=== PATIENT | male | born 1945 | race Caucasian/White ===

== ENCOUNTER 2017-07-29 12:47 | Inpatient (IN) | payer OTHER, MEDICARE ==
[2017-07-29] MEDS: NS 1,000 ML IV ×3 (13:45→19:14)
[2017-07-29 14:37] LABS: BASO % 0.3 % (0.0-1.0); EOS # 0.5 10^3/uL (0.0-0.50); EOS % 6.3 % (0.0-3.0); HEMATOCRIT 32.1 % (42.0-52.0); HEMOGLOBIN 10.5 g/dl (14.0-18.0); IMMATURE GRANULOCYTE % 0.4 % (0-0); LYMPH # 1.4 10^3/uL (1.5-4.5); LYMPH % 20.2 % (24.0-44.0); MEAN CORPUSCULAR HEMOGLOBIN 32.1 pg (27.0-33.0); MEAN CORPUSCULAR HGB CONC 32.7 g/dl (32.0-36.5); MEAN CORPUSCULAR VOLUME 98.2 fl (80.0-96.0); MONO # 0.7 10^3/uL (0.0-0.8); MONO % 9.8 % (0.0-5.0); NEUTROPHILS # 4.5 10^3/uL (1.8-7.7); PLATELET COUNT, AUTOMATED 201 10^3/uL (150-450); RED BLOOD COUNT 3.27 10^6/uL (4.30-6.10); RED CELL DISTRIBUTION WIDTH 11.9 % (11.5-14.5); WHITE BLOOD COUNT 7.1 10^3/uL (4.0-10.0)
[2017-07-29 14:53] LABS: ALBUMIN 3.6 GM/DL (3.2-5.2); ALBUMIN/GLOBULIN RATIO 0.88 (1.00-1.93); ALKALINE PHOSPHATASE 108 U/L (45-117); ALT/SGPT 27 U/L (12-78); ANION GAP 5 MEQ/L (8-16); AST/SGOT 30 U/L (7-37); BILIRUBIN,DIRECT 0.1 MG/DL (0.0-0.2); BILIRUBIN,TOTAL 0.9 MG/DL (0.2-1.0); BLOOD UREA NITROGEN 45 MG/DL (7-18); CARBON DIOXIDE LEVEL 27 MEQ/L (21-32); CHLORIDE LEVEL 107 MEQ/L (98-107); CREATININE FOR GFR 3.14 MG/DL (0.70-1.30); GLUCOSE, FASTING 95 MG/DL (83-110); SODIUM LEVEL 139 MEQ/L (136-145); TOTAL PROTEIN 7.7 GM/DL (6.4-8.2)
[2017-07-29] MEDS ORDERED: SOD POLYSTYRENE SULFONATE SUSP 15 GM/60 ML UD PO (15:45)
[2017-07-29 17:43] LABS: FERRITIN 102 NG/ML (26-388); IRON (FE) 71 UG/DL (65-175); PERCENT SATURATION 27.6 % (19.7-50.0); TOTAL IRON BINDING CAPACITY 257 UG/DL (250-450)
[2017-07-29 18:11] LABS: APPEARANCE, URINE CLEAR (CLEAR); BACTERIA, URINE AUTO 1+ (NEGATIVE); BILIRUBIN, URINE AUTO NEGATIVE (NEGATIVE); BLOOD, URINE BLOOD 1+ (NEGATIVE); COLOR, URINE STRAW (YELLOW); GLUCOSE, URINE (UA) AUTO NEGATIVE (NEGATIVE); KETONE, URINE AUTO NEGATIVE (NEGATIVE); LEUKOCYTE ESTERASE, URINE AUTO NEGATIVE (NEGATIVE); NITRITE, URINE AUTO NEGATIVE (NEGATIVE); PROTEIN, URINE AUTO NEGATIVE (NEGATIVE); RBC, URINE AUTO 3 /HPF (0-3); SPECIFIC GRAVITY URINE AUTO 1.008 (1.002-1.035); SQUAMOUS EPITHELIAL CELL UR AU 0 /HPF (0-6); UROBILINOGEN, URINE AUTO 0.2 mg/dL (0.0-2.0); WBC, URINE AUTO 1 /HPF (0-3)
[2017-07-29 18:15] LABS: CHLORIDE,RANDOM URINE 48 MEQ/L; POTASSIUM RANDOM URINE 32.8 MEQ/L; SODIUM,RANDOM URINE 43 MEQ/L
[2017-07-29 18:24] LABS: CREATININE,RANDOM URINE 47.3 MG/DL
[2017-07-29 18:46] LABS: RETIC HEMOGLOBIN EQUIVALENT 36.8 pg (24-36); RETICULOCYTE # 42.8 10^9/L (17-77); RETICULOCYTE % 1.3 % (0.5-1.5)
[2017-07-29 18:47] LABS: TOTAL PROTEIN,RANDOM URINE 11.4 MG/DL (0.0-12.0)
[2017-07-29 19:14] LABS: HEMATOCRIT 29.5 % (42.0-52.0); HEMOGLOBIN 9.7 g/dl (14.0-18.0); MEAN CORPUSCULAR HEMOGLOBIN 31.7 pg (27.0-33.0); MEAN CORPUSCULAR HGB CONC 32.9 g/dl (32.0-36.5); MEAN CORPUSCULAR VOLUME 96.4 fl (80.0-96.0); PLATELET COUNT, AUTOMATED 155 10^3/uL (150-450); RED BLOOD COUNT 3.06 10^6/uL (4.30-6.10); WHITE BLOOD COUNT 4.7 10^3/uL (4.0-10.0)
[2017-07-29 19:36] LABS: ANION GAP 5 MEQ/L (8-16); BLOOD UREA NITROGEN 41 MG/DL (7-18); CALCIUM LEVEL 8.2 MG/DL (8.8-10.2); CARBON DIOXIDE LEVEL 24 MEQ/L (21-32); CHLORIDE LEVEL 115 MEQ/L (98-107); CREATININE FOR GFR 2.51 MG/DL (0.70-1.30); GLOMERULAR FILTRATION RATE 27.2 (>42); GLUCOSE, FASTING 87 MG/DL (83-110); SODIUM LEVEL 144 MEQ/L (136-145)
[2017-07-29 20:45] LABS: VITAMIN B12 LEVEL 267 PG/ML (247-911)
[2017-07-29 20:46] LABS: FOLATE 10.6 NG/ML (>5.4)
[2017-07-29 21:13] LABS: OSMOLALITY URINE 273 MOSM/KG (500-800)
[2017-07-29] MEDS: SIMVASTATIN 40 MG TAB PO (21:36)
[2017-07-29] MEDS: GABAPENTIN 400 MG CAP PO (21:36)
[2017-07-29] MEDS: traMADol 50 MG TAB PO (21:36)
[2017-07-30] MEDS: NS 1,000 ML IV (03:27)
[2017-07-30 07:12] LABS: HEMATOCRIT 29.8 % (42.0-52.0); HEMOGLOBIN 9.7 g/dl (14.0-18.0); MEAN CORPUSCULAR HEMOGLOBIN 31.6 pg (27.0-33.0); MEAN CORPUSCULAR HGB CONC 32.6 g/dl (32.0-36.5); MEAN CORPUSCULAR VOLUME 97.1 fl (80.0-96.0); PLATELET COUNT, AUTOMATED 161 10^3/uL (150-450); RED BLOOD COUNT 3.07 10^6/uL (4.30-6.10); RED CELL DISTRIBUTION WIDTH 12.1 % (11.5-14.5); WHITE BLOOD COUNT 4.5 10^3/uL (4.0-10.0)
[2017-07-30 07:41] LABS: ANION GAP 5 MEQ/L (8-16); BLOOD UREA NITROGEN 34 MG/DL (7-18); CALCIUM LEVEL 8.2 MG/DL (8.8-10.2); CARBON DIOXIDE LEVEL 24 MEQ/L (21-32); CHLORIDE LEVEL 118 MEQ/L (98-107); CREATININE FOR GFR 2.11 MG/DL (0.70-1.30); GLOMERULAR FILTRATION RATE 33.2 (>42); GLUCOSE, FASTING 95 MG/DL (83-110); SODIUM LEVEL 147 MEQ/L (136-145)
[2017-07-30 07:49] LABS: POTASSIUM SERUM 5.7 MEQ/L (3.5-5.1)
[2017-07-30] MEDS: traMADol 50 MG TAB PO ×2 (08:53→20:10)
[2017-07-30] MEDS: GABAPENTIN 400 MG CAP PO ×2 (08:54→20:10)
[2017-07-30] MEDS: OMEPRAZOLE 20 MG CAP PO (08:54)
[2017-07-30] MEDS: ATENOLOL 25 MG TAB PO (08:54)
[2017-07-30] MEDS ORDERED: ENOXAPARIN 40 MG/0.4 ML SYRINGE (J1650) SC (09:00)
[2017-07-30] MEDS: D5W 1,000 ML IV ×2 (10:48→20:11)
[2017-07-30 13:03] LABS: ANION GAP 4 MEQ/L (8-16); BLOOD UREA NITROGEN 33 MG/DL (7-18); CALCIUM LEVEL 8.1 MG/DL (8.8-10.2); CARBON DIOXIDE LEVEL 25 MEQ/L (21-32); CHLORIDE LEVEL 117 MEQ/L (98-107); CREATININE FOR GFR 1.93 MG/DL (0.70-1.30); GLOMERULAR FILTRATION RATE 36.8 (>42); GLUCOSE, FASTING 117 MG/DL (83-110); PHOSPHORUS LEVEL 2.7 MG/DL (2.5-4.9); SODIUM LEVEL 146 MEQ/L (136-145)
[2017-07-30 13:05] LABS: POTASSIUM SERUM 5.6 MEQ/L (3.5-5.1)
[2017-07-30] MEDS: amLODIPine 5 MG TAB PO ×2 (13:27→20:10)
[2017-07-30] MEDS: SIMVASTATIN 40 MG TAB PO (20:10)
[2017-07-31 05:36] LABS: HEMATOCRIT 27.9 % (42.0-52.0); HEMOGLOBIN 9.1 g/dl (14.0-18.0); MEAN CORPUSCULAR HEMOGLOBIN 31.5 pg (27.0-33.0); MEAN CORPUSCULAR HGB CONC 32.6 g/dl (32.0-36.5); MEAN CORPUSCULAR VOLUME 96.5 fl (80.0-96.0); PLATELET COUNT, AUTOMATED 157 10^3/uL (150-450); RED BLOOD COUNT 2.89 10^6/uL (4.30-6.10); WHITE BLOOD COUNT 5.5 10^3/uL (4.0-10.0)
[2017-07-31 05:55] LABS: ANION GAP 6 MEQ/L (8-16); BLOOD UREA NITROGEN 25 MG/DL (7-18); CALCIUM LEVEL 8.6 MG/DL (8.8-10.2); CARBON DIOXIDE LEVEL 24 MEQ/L (21-32); CHLORIDE LEVEL 116 MEQ/L (98-107); CREATININE FOR GFR 1.84 MG/DL (0.70-1.30); GLOMERULAR FILTRATION RATE 38.9 (>42); GLUCOSE, FASTING 134 MG/DL (83-110); POTASSIUM SERUM 4.8 MEQ/L (3.5-5.1); SODIUM LEVEL 146 MEQ/L (136-145)
[2017-07-31] MEDS ORDERED: **hydrALAZINE** 10 MG TAB PO (09:00)
[2017-07-31] MEDS: OMEPRAZOLE 20 MG CAP PO (09:17)
[2017-07-31] MEDS: D5W 1,000 ML IV (09:17)
[2017-07-31] MEDS: traMADol 50 MG TAB PO (09:18)
[2017-07-31] MEDS: ATENOLOL 25 MG TAB PO (09:18)
[2017-07-31] MEDS: amLODIPine 5 MG TAB PO (09:18)
[2017-07-31] MEDS: GABAPENTIN 400 MG CAP PO (09:19)
[2017-07-31] MEDS: LISINOPRIL 40 MG TAB PO (16:12)
== END 2017-07-31 16:50 | disposition home or self-care (01) | DRG 683 ==
LOC: M ED 12:47 → M PCU 07-30 15:20 → M ED INP 19:42
DX: N17.9 Acute kidney failure, unspecified (principal); E87.0 Hyperosmolality and hypernatremia; E87.5 Hyperkalemia; R19.7 Diarrhea, unspecified; I12.9 Hypertensive chronic kidney disease with stage 1 through stage 4 chronic kidney disease, or unspecified chronic kidney disease; E86.0 Dehydration; E86.1 Hypovolemia; Z79.899 Other long term (current) drug therapy; D64.9 Anemia, unspecified; N18.3 Chronic kidney disease, stage 3 (moderate); E78.5 Hyperlipidemia, unspecified; M19.90 Unspecified osteoarthritis, unspecified site

== ENCOUNTER → 2018-01-03 | Outpatient (REF) | payer OTHER ==
[2018-01-03 14:17] LABS: VITAMIN B12 LEVEL 195 PG/ML
[2018-01-03 14:22] LABS: FERRITIN 70 NG/ML (26-388); IRON (FE) 56 UG/DL (65-175); TOTAL IRON BINDING CAPACITY 294 UG/DL (250-450)
== END ==
LOC: M LAB REF 13:33
DX: D64.9 Anemia, unspecified (principal)
CPT/HCPCS: 82746

== ENCOUNTER → 2019-05-15 | Outpatient (REF) | payer OTHER ==
[~2019-05-15] MED LIST: AMLO5TAB6 PO; ATEN25TA PO; CELE100C PO; GABA800T4 PO; LISI-538; LISI40TA PO; NAPR1TAB41 PO; OMEP20CA4 PO; SIMV40TA2 PO; TRAM50TA2 PO
[2019-05-15 18:45] LABS: PERCENT SATURATION 20.4 % (19.7-50.0)
== END ==
LOC: M LAB REF 17:29
PROVIDERS: ATTEND Internal Medicine
DX: D50.9 Iron deficiency anemia, unspecified (principal)

== ENCOUNTER 2019-08-16 10:40 | Day surgery (SDC) | payer MEDICARE ==
[~2019-08-16] VITALS: Ht 162.6 cm; Wt 65.8 kg
[~2019-08-16 10:40] MED LIST changes: +FERR32TA PO; +HYDR10TAB PO; +NS 1,000 ML IV ONE; +OMEP1CAP73 PO; -OMEP20CA4 PO; +ROCA0.25 PO; -SIMV40TA2 PO; +SIMV40TA20 PO; +TORS10TA3 PO
[2019-08-16] MEDS ORDERED: propofoL 500 MG/50 ML VIAL As Ordered ONE (11:53)
[2019-08-16] MEDS ORDERED: LIDOCAINE 2% INJ 100 MG/5 ML SDV (FOR ANES.) As Ordered ONE (11:55)
[2019-08-16] MEDS ORDERED: CETACAINE SPRAY 5GM As Ordered ONE (12:26)
--- NOTE | 2019-08-16 13:17 | ROOR ---
Patient Name: Hossein Nathan Procedure Date: 08/16/2019 12:52 PM Date of : 1945 Age: 74 Room: [facility] Gender: Male Note Status: Finalized Procedure: Upper Endoscopy + Biopsies Indications: Iron deficiency anemia Providers: Zain Phillips MD Referring MD: Paulette Cisneros DO Requesting Provider: Medicines: Monitored Anesthesia Care Complications: No immediate complications. Procedure: Pre-Anesthesia Assessment: - The heart rate, respiratory rate, oxygen saturations, blood pressure, adequacy of pulmonary ventilation, and response to care were monitored throughout the procedure. The Endoscope was introduced through the mouth, and advanced to the second part of duodenum. The upper GI endoscopy was accomplished without difficulty. The patient tolerated the procedure well. Findings: The Z-line was irregular and was found 38 cm from the incisors. Multiple biopsies were obtained with cold forceps for evaluation to rule out Cardozo's Esophagus randomly at the gastroesophageal junction. A few localized, small non-bleeding erosions were found in the gastric antrum. There were no stigmata of recent bleeding. Biopsies were taken with a cold forceps for Helicobacter pylori testing. The exam of the duodenum was otherwise normal. Biopsies for histology were taken with a cold forceps in the first portion of the duodenum for evaluation of celiac disease. The exam was otherwise without abnormality. Impression: - Z-line irregular, 38 cm from the incisors. - Non-bleeding erosive gastropathy. Biopsied. - The examination was otherwise normal. - Multiple biopsies were obtained at the gastroesophageal junction. - Biopsies were taken with a cold forceps for evaluation of celiac disease. - The examination was otherwise normal. Recommendation: - Patient has a contact number available for emergencies. The signs and symptoms of potential delayed complications were discussed with the patient. Return to normal activities tomorrow. Written discharge instructions were provided to the patient. - High fiber diet. - Discharge patient to home. - Continue present medications. - Await pathology results. - Telephone GI clinic for pathology results in 1 week. - The findings and recommendations were discussed with the patient's family. Zain Phillips MD Zain Phillips MD 08/16/2019 1:16:36 PM Electronically signed by Zain Phillips MD Number of Addenda: 0 Note Initiated On: 08/16/2019 12:52 PM Estimated Blood Loss: Estimated blood loss: none.
--- NOTE | 2019-08-16 13:58 | ROOR ---
Patient Name: Hossein Nathan Procedure Date: 08/16/2019 12:53 PM Date of : 1945 Age: 74 Room: [facility] Gender: Male Note Status: Finalized Procedure: Total Colonoscopy + Hot Snare Polypectomy + Hemoclips Indications: Iron deficiency anemia Providers: Zain Phillips MD Referring MD: Paulette Cisnreos DO Requesting Provider: Medicines: Monitored Anesthesia Care Complications: No immediate complications. Procedure: Pre-Anesthesia Assessment: - The heart rate, respiratory rate, oxygen saturations, blood pressure, adequacy of pulmonary ventilation, and response to care were monitored throughout the procedure. The Colonoscope was introduced through the anus and advanced to the cecum, identified by appendiceal orifice and ileocecal valve. The colonoscopy was performed without difficulty. The patient tolerated the procedure well. The quality of the bowel preparation was excellent. Findings: The perianal and digital rectal examinations were normal. Non-bleeding internal hemorrhoids were found during retroflexion. The hemorrhoids were small and Grade I (internal hemorrhoids that do not prolapse). Multiple small-mouthed diverticula were found in the recto-sigmoid colon, sigmoid colon and descending colon. A small polyp was found at 50 cm proximal to the anus. The polyp was sessile. The polyp was removed with a jumbo cold forceps. Resection and retrieval were complete. A small polyp was found at 30 cm proximal to the anus. The polyp was sessile. The polyp was removed with a hot snare. Resection and retrieval were complete. Two sessile polyps were found at 25 cm proximal to the anus. The polyps were small in size. These polyps were removed with a hot snare. Resection and retrieval were complete. To prevent bleeding after the polypectomy, one hemostatic clip was successfully placed (MR conditional). There was no bleeding at the end of the procedure. The exam was otherwise without abnormality on direct and retroflexion views. Impression: - Non-bleeding internal hemorrhoids. - Diverticulosis in the recto-sigmoid colon, in the sigmoid colon and in the descending colon. - One small polyp at 50 cm proximal to the anus, removed with a jumbo cold forceps. Resected and retrieved. - One small polyp at 30 cm proximal to the anus, removed with a hot snare. Resected and retrieved. - Two small polyps at 25 cm proximal to the anus, removed with a hot snare. Resected and retrieved. Clip (MR conditional) was placed. - The examination was otherwise normal on direct and retroflexion views. - The exam was otherwise normal to the cecum. Recommendation: - Patient has a contact number available for emergencies. The signs and symptoms of potential delayed complications were discussed with the patient. Return to normal activities tomorrow. Written discharge instructions were provided to the patient. - High fiber diet. - Discharge patient to home. - Continue present medications. - Await pathology results. - Telephone GI clinic for pathology results in 1 week. - Return to referring physician. - The findings and recommendations were discussed with the patient's family. Zain Phillips MD Zain Phillips MD 08/16/2019 1:58:27 PM Electronically signed by Zain Phillips MD Number of Addenda: 0 Note Initiated On: 08/16/2019 12:53 PM Estimated Blood Loss: Estimated blood loss: none.
[2019-08-16 14:25] VITALS: BP 120/60
== END 2019-08-16 14:35 | disposition home or self-care (01) ==
LOC: M OPP 10:40
PROVIDERS: ATTEND Internal Medicine Gastroenterology
DX: K64.0 First degree hemorrhoids (principal); D12.6 Benign neoplasm of colon, unspecified; K57.30 Diverticulosis of large intestine without perforation or abscess without bleeding; D50.9 Iron deficiency anemia, unspecified; K22.8 Other specified diseases of esophagus; K31.89 Other diseases of stomach and duodenum; Z80.0 Family history of malignant neoplasm of digestive organs

== ENCOUNTER → 2019-09-18 | Outpatient (REF) | payer MEDICARE ==
[~2019-09-18] MED LIST changes: -NS 1,000 ML IV ONE
[2019-09-18 12:57] LABS: IRON (FE) 51 UG/DL (65-175)
[2019-09-18 13:08] LABS: VITAMIN B12 LEVEL 695 PG/ML (247-911)
== END ==
LOC: M LAB REF 12:17
PROVIDERS: ATTEND Internal Medicine
DX: N18.3 Chronic kidney disease, stage 3 (moderate) (principal); D51.9 Vitamin B12 deficiency anemia, unspecified

== ENCOUNTER → 2020-01-01 | Outpatient (REF) | payer MEDICARE ==
[2020-01-01 19:19] LABS: PERCENT SATURATION 24.5 % (19.7-50.0)
== END ==
LOC: M LAB REF 18:04
PROVIDERS: ATTEND Internal Medicine Nephrology
DX: D50.9 Iron deficiency anemia, unspecified (principal)

== ENCOUNTER → 2020-03-12 | Outpatient (REF) | payer MEDICARE ==
[~2020-03-12] MED LIST changes: +AMLO1TAB24 PO; -AMLO5TAB6 PO
[2020-05-06 03:46] LABS: PERCENT SATURATION 20.6 % (19.7-50.0)
== END ==
LOC: M LAB REF 10:36
PROVIDERS: ATTEND Internal Medicine
DX: D50.9 Iron deficiency anemia, unspecified (principal); N18.3 Chronic kidney disease, stage 3 (moderate)

== ENCOUNTER → 2020-08-19 | Outpatient (REF) | payer MEDICARE ==
[~2020-08-19] MED LIST changes: -LISI-538; +LISI20TA33; -LISI40TA PO; +LISI40TA4 PO
[2020-08-19 16:56] LABS: PERCENT SATURATION 43.1 % (19.7-50.0)
== END ==
LOC: M LAB REF 16:10
PROVIDERS: ATTEND Internal Medicine
DX: D50.9 Iron deficiency anemia, unspecified (principal)

== ENCOUNTER 2020-10-02 10:02 | Inpatient (IN) | payer MEDICARE ==
[~2020-10-02] VITALS: Ht 162.6 cm; Wt 68.2 kg
[~2020-10-02 10:02] MED LIST changes: +HEPARIN SOD (PORCINE) 5000UNITS/ML 1ML VIAL/SYRINGE SC SCH
[2020-10-02] MEDS ORDERED: ACET-683 PO (10:14)
[2020-10-02] MEDS ORDERED: TRAM50TA2 PO (10:16)
[2020-10-02 10:48] LABS: BASO % 0.2 % (0.0-1.0); HEMATOCRIT 32.7 % (42.0-52.0); HEMOGLOBIN 10.5 g/dl (13.5-17.5); LYMPH # 0.6 10^3/uL (1.5-5.0); LYMPH % 6.3 % (24.0-44.0); MEAN CORPUSCULAR HEMOGLOBIN 32.1 pg (27.0-33.0); MEAN CORPUSCULAR HGB CONC 32.1 g/dl (32.0-36.5); MONO # 0.8 10^3/uL (0.0-0.8); MONO % 8.3 % (2.0-8.0); NEUTROPHILS # 8.6 10^3/uL (1.5-8.5); NEUTROPHILS % 84.5 % (36.0-66.0); PLATELET COUNT, AUTOMATED 129 10^3/uL (150-450); RED BLOOD COUNT 3.27 10^6/uL (4.30-6.10); WHITE BLOOD COUNT 10.1 10^3/uL (4.0-10.0)
[2020-10-02] MEDS ORDERED: ACETAMINOPHEN 500 MG TAB PO ONE (11:15)
[2020-10-02] MEDS ORDERED: NS 500 ML IV ONE (11:15)
[2020-10-02 11:19] LABS: ERYTHROCYTE SEDIMENTATION RATE 96 mm/hr (0-20)
[2020-10-02] MEDS ORDERED: atenoloL 25 MG TAB PO ONE (11:20)
[2020-10-02 11:27] LABS: C REACTIVE PROTEIN QUANTITATIV 34.6 MG/DL (0.00-0.30)
[2020-10-02] MEDS ORDERED: TORSEMIDE 10 MG TABLET PO STA (11:46)
[2020-10-02] MEDS ORDERED: amLODIPine 5 MG TAB PO ONE (12:00)
[2020-10-02] MEDS ORDERED: VANCOMYCIN HCL 1,250 MG in IV FLUID PLACE HOLDER 1 EA IV ONE (12:00)
--- NOTE | 2020-10-02 12:07 | REP ---
INDICATION: hypoxia, febrile COMPARISON: 07/30/2017 TECHNIQUE: Portable AP view of the chest FINDINGS: The mediastinum and cardiac silhouette are stable and within normal limits for portable technique. The lung anderson are clear without acute consolidation, effusion, or pneumothorax. Skeletal structures are intact. IMPRESSION: Chronic stable changes. No focal consolidation or effusion. <Electronically signed by Rob Funes > 10/02/20 [id number]
[2020-10-02 12:13] LABS: RSV AMPLIFICATION NEGATIVE (NEGATIVE)
[2020-10-02] MEDS ORDERED: VANCOMYCIN HCL 750 MG, VIAL MATE ADAPTER 1 EACH in NS 250 ML IV ONE (12:20)
[2020-10-02] MEDS ORDERED: VANCOMYCIN HCL 500 MG in D5W MINI-BAG PLUS 100 ML IV ONE (12:20)
--- NOTE | 2020-10-02 12:20 | REP ---
INDICATION: severe swelling, redness, limited ROM COMPARISON: None. TECHNIQUE: AP, lateral, bilateral oblique views of the right knee. FINDINGS: Evidence for prior right knee replacement with relatively normal appearance and positioning to the orthopedic hardware. No associated areas of lucency to suggest loosening. Joint effusion cannot be excluded. Heterotopic calcification and areas of ossification identified within the soft tissues primarily overlying the visualized distal thigh as well as along the medial joint space suggesting elements of myositis ossificans. IMPRESSION: Chronic changes as noted above. Relatively normal appearance to the orthopedic hardware. Cannot exclude joint effusion. <Electronically signed by Rob Funes > 10/02/20 [id number]
[2020-10-02 12:24] LABS: CK-MB VALUE MASS 2.9 NG/ML (<3.6); MB/CK RELATIVE INDEX 0.26 (< OR =4); TROPONIN I 0.03 NG/ML (< 0.10)
[2020-10-02] MEDS ORDERED: CETACAINE SPRAY 5GM TOP STA (12:35)
--- NOTE | 2020-10-02 12:45 | REP ---
INDICATION: red swollen tender, hypoxia, ro clot COMPARISON: None. TECHNIQUE: Prabhakar scale and color Doppler evaluation right lower extremity using linear high frequency transducer. FINDINGS: Ultrasound examination of the right lower extremity deep venous structures from the common femoral vein to the popliteal vein demonstrates normal compressibility flow and wave patterns in response to respiration and augmentation. There is no evidence for deep venous thrombosis. IMPRESSION: No evidence for deep venous thrombosis. <Electronically signed by Rob Funes > 10/02/20 [id number]
[2020-10-02] MEDS ORDERED: AMLO2.5T3 PO (13:25)
[2020-10-02] MEDS ORDERED: SIMV20TA22 PO (13:25)
[2020-10-02] MEDS ORDERED: PERCOCET 5MG/325MG TAB PO PRN ×2 (13:40)
[2020-10-02] MEDS ORDERED: ACETAMINOPHEN TAB 650MG DOSE (2X325MG) PO PRN ×2 (13:40→22:30)
[2020-10-02 14:09] LABS: CRYSTALS, BODY FLUID NONE SEEN (NONE SEEN); SOURCE, BODY FLUID CRYSTALS RT KNEE
[2020-10-02] MEDS ORDERED: NS 1,000 ML IV SCH (14:20)
[2020-10-02 14:34] LABS: SOURCE, BODY FLUID GLUCOSE RT KNEE; SOURCE, BODY FLUID URIC ACID RT KNEE; URIC ACID, BODY FLUID 6.6 MG/DL (NOT ESTABLISHED)
--- NOTE | 2020-10-02 14:52 | HPEPDOC ---
[facility] Medical History & Physical Date of Admission Oct 02, 2020 Date of Service: Oct 02, 2020 Attending Physician: Joanne Boone MD History and Physical CHIEF COMPLAINT: Right knee pain HISTORY OF PRESENT ILLNESS: Patient is a 75-year-old male with PMH of CAD, hypertension, hyperlipidemia, chronic kidney disease stage III, chronic back pain, iron deficiency anemia who presented to [facility] emergency room with the chief complaint of increased right knee pain. The patient states his right knee pain began 2 days ago with sudden onset of right knee swelling, redness and warmth. He denies having a fever or chills at home. He states he woke up from a nap in his reclining chair and this pain and swelling was randomly there. He says he began using a walker at home due to the pain in the knee and right [id number], stabbing in character, 05/04, nonradiating. He has a history of having bilateral knee replacements and hardware in both knees. Today he states that he was walking with a walker and he slipped and fell. He denies loss of consciousness but did sustain an abrasion in the right upper extremity. She denies any shortness of breath, chest pain, nausea, vomiting, diarrhea, recent illnesses. He admits to having right lower extremity cellulitis and redness in the anterior harmon on and off for several years and this is also still present currently. He says in the past he is hit this area multiple times with his car door and has left abrasions, ulcers in the past. Currently there is not an open wound there but it appears well-healed with some scarring present. Today he came to the emergency room due to increased right knee pain after his fall. In the emergency room, his blood pressure was elevated with systolic 180 mmHg, febrile with a temperature of 102.4 F T max. Other vital signs were within normal limits. XR right knee: Chronic changes as noted above- Relatively normal appearance to the orthopedic hardware but cannot exclude joint effusion. Vascular US neg. Surgery (Dr. Hernández) evaluated patient at the bedside and did fluid aspiration of the right knee, concerning for septic joint. Fluid collected was bloody and there was a concern for infected space with hardware present. ESR, CRP elevated, WBC 10.1. Patient was started on vancomycin. There was also noted right lower extremity cellulitis which was of concern as well. The patient was ultimately admitted under hospitalist service for right knee pain rule out septic joint, right lower extremity cellulitis. REVIEW OF SYSTEMS: Neg except for what is mentioned above PAST MEDICAL HISTORY: CAD, hypertension, hyperlipidemia, chronic kidney disease stage III, chronic back pain, iron deficiency anemia, colon polyps PAST SURGICAL HISTORY: Bilateral knee replacements L1-L5 back surgery C1-C7 neck surgery Colonoscopy 07/2019 FAMILY HISTORY: Father: Colorectal cancer. at age 67 Mother: No medical issues. at age 83 SOCIAL HISTORY: Prior smoker 1 pack per day for 20 years. Quit smoking 25 years ago. Denies alcohol or drug use. Is very active in works out several days a week. He is currently employed part-time. He follows rarely with [facility] for his primary care, nephrology Dr. Ron. Full Code. ALLERGIES: Please see below. HOME MEDICATIONS: Please see below. PHYSICAL EXAMINATION: VS: Please see below CONSTITUTIONAL: No acute distress, resting comfortably, AAO x 3 EYES: PERRLA, EOM intact HENT, MOUTH: Normocephalic, atraumatic, moist mucous membranes, NECK: SUPPLE, no JVD, no lymphadenopathy, no carotid bruit CV: Murmur 2/6 systolic, Regular rate and rhythm, S1S2 normal, no rubs/gallops RESPIRATORY: Clear to auscultation bilaterally, no rales/rhonchi/wheezes GI: BS positive in 4 quadrants, soft, nontender, nondistended, no rebound or guarding, no organomegaly : Deferred MUSCULOSKELETAL: Normal ROM. No cyanosis, clubbing, swelling, joint deformity, extremity edema. PUlses present in all extremities INTEGUMENTARY: Increased erythema isolated to right anterior harmon, right knee. Tenderness to area of right lateral, posterior and above knee. +2 pitting edema in RLE, +1 pitting edema in LLE. NEUROLOGIC: Cranial Nerves II-XII are intact, no focal deficits PSYCHIATRIC: Mood and affect are normal LABORATORY DATA: Please see below IMAGING: CXR: Chronic stable changes. No focal consolidation or effusion. XR right knee : chronic changes as noted above- Relatively normal appearance to the orthopedic hardware but cannot exclude joint effusion Vascular US right LE: No DVT ASSESSMENT: 75-year-old male with PMH of CAD, hypertension, hyperlipidemia, chronic kidney disease stage III, chronic back pain, iron deficiency anemia admitted under hospitalist service for right knee pain rule out septic joint, right lower extremity cellulitis. PLAN: Right knee pain, swelling r/o septic joint -WBC 10.1, febrile T max 102.4F, ESR and CRP elevated -Knee replacement history -F/u fluid aspiration GS and cultures, blood cultures -Given vancomycin in ER -Started on vancomycin, ceftriaxone, probiotic until cultures resulted -Pain control with percocet, tylenol -Evaluated by orthopedic surgery in ER who also aspirated right knee: will f/u fluid results. If infected joint will take to OR for washout, may need hardware removed. Right LE cellulitis of anterior harmon, knee- intermittent for years per patient -warmth, increased edema in RLE- area where prior ulcers and prior area of trauma is present -Will request this area to be outlined to see if improvement on current treatment -F/u daily labs, c/w abx above Mechanical fall -Per patient, very independent prior to these last 2 days where he was using walker to ambulate due to knee pain -States to have tripped due to walker -F/u PT/OT HTN -BP better controlled currently after getting meds missed at home -C/w home medications. CKD Stage II -Baseline Cr likely near normal, will confirm with nephrology office -Starting on IVFs at 100 cc/hr as urine appears dark. -F/u daily labs, avoid other nephrotoxic medications Elevated BNP, ? CHF vs. 2/2 to kidney disease -BNP 1188, b/l lower ext edema not severe -No SOB, concerning findings on CXR -C/w BB, CCB -Monitor for changes HLD -C/w home med Chronic back pain -C/w gabapentin, percocet above Iron deficiency anemia -Stable DVT px -Heparin sc DISPOSITION: Admitted under hospitalist service with orthopedic surgery consulted. Plan is discharge home when medically improved. Vital Signs Vital Signs Date Time Temp Pulse Resp B/P (MAP) Pulse Ox O2 Delivery O2 Flow Rate FiO2 10/02/20 13:14 99.3 71 16 140/65 (90) 100 Nasal Cannula 3.0 Laboratory Data Labs 24H Laboratory Tests 2 10/02/20 10:26: Immature Granulocyte % (Auto) 0.7, Neutrophils (%) (Auto) 84.5H, Lymphocytes (%) (Auto) 6.3L, Monocytes (%) (Auto) 8.3H, Eosinophils (%) (Auto) 0.0, Basophils (%) (Auto) 0.2, Neutrophils # (Auto) 8.6H, Lymphocytes # (Auto) 0.6L, Monocytes # (Auto) 0.8, Eosinophils # (Auto) 0.0, Basophils # (Auto) 0.0, Nucleated Red Blood Cells % (auto) 0.0, Erythrocyte Sedimentation Rate 96H, Lactic Acid Level 1.2, Total Creatine Kinase 1108H, Creatine Kinase MB 2.9, Creatine Kinase MB Relative Index 0.26, Troponin I 0.03, C-Reactive Protein, Quantitative 34.60H, WE-Eqx-T-Type Natriuretic Peptide 1788H 10/02/20 10:31: POC Glucose (Misc Panel) 119H, POC Sodium (Misc Panel) 136, POC Potassium (Misc Panel) 4.3, POC Chloride (Misc Panel) 103, POC Total CO2 (Misc Panel) 27.0, POC Blood Urea Nitrogen (Misc Panel 32H, POC Ionized Calcium (Misc Panel) 4.7, POC Creatinine (Misc Panel) 2.6H, POC Hematocrit (Misc Panel) 31.0L 10/02/20 11:15: Coronavirus (COVID-19)(PCR) NEGATIVE, Influenza Type A (RT-PCR) NEGATIVE, Influenza Type B (RT-PCR) NEGATIVE, Respiratory Syncytial Virus (PCR) NEGATIVE 10/02/20 12:29: Urine Color YELLOW, Urine Appearance CLEAR, Urine pH 6.0, Urine Specific [place] 1.018, Urine Protein 2+H, Urine Glucose (UA) NEGATIVE, Urine Ketones TRACEH, Urine Blood 1+H, Urine Nitrite NEGATIVE, Urine Bilirubin NEGATIVE, Urine Urobilinogen 0.2, Urine Leukocyte Esterase NEGATIVE, Urine WBC (Auto) 1, Urine RBC (Auto) 11H, Urine Hyaline Casts (Auto) 0, Urine Bacteria (Auto) NEGATIVE, Urine Squamous Epithelial Cells 0, Urine Sperm (Auto) 10/02/20 13:15: Body Fluid Crystals NONE SEEN, Body Fluid Crystal Source RT KNEE CBC/BMP Laboratory Tests 10/02/20 10:26 Microbiology Microbiology 10/02/20 Gram Stain, Received Pending 10/02/20 Body Fluid Culture, Received Pending 10/02/20 Blood Culture, Received Pending 10/02/20 Blood Culture, Received Pending Home Medications Scheduled Amlodipine Besylate (Amlodipine Besylate) 2.5 Mg Tablet, 2.5 MG PO DAILY Atenolol (Atenolol) 25 Mg Tab, 25 MG PO DAILY Calcitriol (Rocaltrol) 0.25 Mcg Capsule, 0.25 MCG PO 5XW MON THRU FRI Gabapentin (Gabapentin) 800 Mg Tab, 800 MG PO BID Hydralazine HCl (Hydralazine HCl) 10 Mg Tablet, 10 MG PO BID Simvastatin (Simvastatin) 20 Mg Tablet, 20 MG PO QHS Scheduled PRN Acetaminophen (Acetaminophen) 500 Mg Tablet, 1,000 MG PO Q6H PRN for PAIN / FEVER Tramadol HCl (Tramadol HCl) 50 Mg Tablet, 50 MG PO BID PRN for PAIN Allergies Coded Allergies: No Known Allergies (Verified , 08/10/19) A-FIB/CHADSVASC A-FIB History Current/History of A-Fib/PAF?: No Current PO Anticoag Therapy: No Age/Risk Factor Scoring CHADSVASC: CHADSVASC Response (Comments) Value Age Risk Factor Age 65-74 years old 1 Gender Risk Factor Male 0 Hx of CHF No 0 Hx of HTN Yes 1 Hx of Stroke/TIA/or VTE No 0 Hx of Diabetes No 0 Hx of Vascular Disease No 0 Total 2 Treatment Treatment ordered: Other Other anticoagulant ordered: heparin Joanne Boone MD Oct 02, 2020 14:52
--- NOTE | 2020-10-02 14:56 | CR.PDOC ---
General Date of Consultation: Oct 02, 2020 Referring Provider: OPHELIA SUN PA-C Primary Care Physician: A Attending Physician: Joanne Boone MD Consultation REASON FOR CONSULTATION/CHIEF COMPLAINT: The patient is seen in consultation in the emergency room as requested due to right lower extremity swelling, erythema and an effusion to existing right total knee arthroplasty., Rule out septic total knee HISTORY OF PRESENT ILLNESS: The patient states that he has had pain and swelling, which started developing on Wednesday. The redness and swelling to the right knee as well as the decreased range of motion and stiffness has increased over the past few days. He denies any injury. He denies any existing illness or infection. The patient states that he was sitting in a reclining chair with his legs out straight, and he started to develop right knee pain, particularly with range of motion and weightbearing. The progress over the last few days to the point where he decided to have it checked out in the emergency room. He states that he called [facility] orthopedics. However, he was declined being seen there, as he had had his surgery at [facility] by Dr. Gary approximately 2-3 years ago. He has also had a left total knee arthroplasty. ALLERGIES: Please see below. HOME MEDICATIONS: Please see below. PAST MEDICAL HISTORY: 1. Myocardial infarction. 2. Hypertension PAST SURGICAL HISTORY: 1. Reports bilateral total knee arthroplasty procedures. Approximately 2-[address] Gary at [facility] 2. FAMILY HISTORY: Father: Mother: Siblings: Children: Hereditary Diseases: Unexpected deaths due to medical reasons: SOCIAL HISTORY: Marital status and/or living arrangements: Children: Employment: Tobacco use: Denies ETOH: Illicit drug use: IV drug use: Other relevant social factors: REVIEW OF SYSTEMS: CONSTITUTIONAL: Denies. HEENT: Denies. CARDIOVASCULAR: Denies. RESPIRATORY: Denies. GENITOURINARY: Denies. MUSCULOSKELETAL: Right knee pain and swelling with swelling and erythema to the right lower extremity. GASTROINTESTINAL: Denies. SKIN: Denies. NEUROLOGICAL: Denies. PSYCHIATRIC: Denies. ENDOCRINE: Denies. HEMATOLOGIC/LYMPHATIC: Denies. ALLERGIC/IMMUNOLOGIC: Denies. PHYSICAL EXAMINATION: VITAL SIGNS: Please see below. The patient is alert and oriented to person, place and time. Constitutional: The patient appears their stated age. They are casually dressing, comfortable and cooperative, in no acute distress. Psychiatric: Appropriate affect with good eye contact. Ambulation: Nonambulatory secondary to pain and right knee. Head, ears, eyes, nose, and throat: Head is normocephalic, atraumatic. Eyes: P upils equal. Sclerae anicteric. Mouth: Average dentition with moist mucous membranes. Neck: Supple with full range of motion. Skin: Clean, dry, and intact with no abrasions or ulcerations. Lungs: Breathing is unlabored with symmetric chest expansion on inspiration. Cardiovascular: Palpable posterior tibialis pulses, bilaterally. Neurologic: Moving right foot and ankle, grossly. Sensation is intact to light touch in the L4-S1 dermatome distribution Lymph: Pitting Edema 1+ to R leg Musculoskeletal: The right knee was examined and compared to the left lower extremity. There is patellar and erythema to the right lower extremity compared to the left. There is also a right knee moderate effusion. The patient is able to move his toes and is grossly neurovascularly intact to the right lower extremity. There is good perfusion to the right lower extremity. Range of motion was approximately 5-10 of extension up to approximately 100 or so before the patient start having pain and discomfort. There is approximately 5 of varus opening With a valgus stress Imaging: X-ray imaging was independently reviewed by myself today. This demonstrated a right total knee arthroplasty prosthesis in position. There is no obvious signs of any loosening to the femoral or tibial component. The tibial component appears to be a revision component with constrained polyethylene liner. There is significant heterotopic ossification within the quadriceps tendon. There is an effusion to the knee noted as well. Otherwise, there does not appear to be any obvious complications associated with the prosthesis. The patient also had an ultrasound, rule out DVT to the right lower extremity, which was reportedly negative by the emergency room, [facility]. LABORATORY DATA: Please see below. ASSESSMENT/PLAN: 1., The patient demonstrates an effusion to the right lower extremity with a total knee arthroplasty. There is approximately 2-3 years out from surgery. This is associated erythema and likely cellulitis to the right leg. The effusion is not at the level of the erythema. However, the effusion within the knee compared to the left is a considerable factor and concerning for a septic total knee. This was aspirated in the emergency room. Informed consent was obtained from the patient and a timeout was carried out. The right lower extremity was appropriately marked. The patient was made aware that the risks primarily include bleeding and infection of the total knee arthroplasty prosthesis and joint. The patient was in agreement with the treatment plan and signed consent. Procedure: Right knee aspiration under sterile technique. The right lower extremity was prepped and draped with chlorhexidine wands followed by an alcohol swab. Using sterile technique, an 18-gauge needle was introduced to the superior lateral aspect of the joint just beneath the patella. The needle was positioned in approximately 25-30 mL of thin reddish fluid was aspirated. There was concern that this may be slightly turbid, suggesting that the joint fluid may be infected. This fluid was sent for Gram stain, culture and sensitivity via the emergency room. . A dry dressing was placed over the needle entry site. I had a discussion with the patient with regards to the plan. There is concern for possible infection of the right total knee arthroplasty prosthesis. It appears that this is an infection that is less than 3 days presenting symptomatically. There is a possibility that the patient will require an irrigation and debridement. The patient will be kept nothing by mouth until the results of the aspiration Return. If there is concern for infection. The patient was advised that he would be consented for irrigation and debridement, which would be carried out today. In order to decrease the bacterial load and then he would be referred to the infectious disease team for evaluation. He will be admitted by the hospitalist team as advised by the emergency room, [facility]. I will reassess The patient later this afternoon once the microbiology, Gram stain has returned. Thank you very much for referring this patient TO My care, Stephen Tillman M.D. [facility] This document contains text that was generated through computerized voice- recognition software. Despite it being proofread, undetected computer-generated errors may exist. Please contact our office at [phone] if any clarification or correction is required. Addendum: The patient was reassessed at approximately 16:55 this evening. He was developing increased pain in his knee and chills. 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 Given this combined with the cloudy aspirate and the patients worsening symptoms, the decision was made to take the patient to the Operating room for an Irrigation and debridement with possible liner change and possible 2 stage revision. The risks and benefits of the procedure were explained and documented on the consent. The patient consented to the procedure and blood transfusion if necessary. Stephen Tillman MD [facility] Vital Signs/I&O Vital Signs Date Time Temp Pulse Resp B/P (MAP) Pulse Ox O2 Delivery O2 Flow Rate FiO2 10/02/20 13:14 99.3 71 16 140/65 (90) 100 Nasal Cannula 3.0 Laboratory Data Labs 24H Laboratory Tests 2 10/02/20 10:26: Immature Granulocyte % (Auto) 0.7, Neutrophils (%) (Auto) 84.5H, Lymphocytes (%) (Auto) 6.3L, Monocytes (%) (Auto) 8.3H, Eosinophils (%) (Auto) 0.0, Basophils (%) (Auto) 0.2, Neutrophils # (Auto) 8.6H, Lymphocytes # (Auto) 0.6L, Monocytes # (Auto) 0.8, Eosinophils # (Auto) 0.0, Basophils # (Auto) 0.0, Nucleated Red Blood Cells % (auto) 0.0, Erythrocyte Sedimentation Rate 96H, Lactic Acid Level 1.2, Total Creatine Kinase 1108H, Creatine Kinase MB 2.9, Creatine Kinase MB Relative Index 0.26, Troponin I 0.03, C-Reactive Protein, Quantitative 34.60H, NM-Dpj-N-Type Natriuretic Peptide 1788H 10/02/20 10:31: POC Glucose (Misc Panel) 119H, POC Sodium (Misc Panel) 136, POC Potassium (Misc Panel) 4.3, POC Chloride (Misc Panel) 103, POC Total CO2 (Misc Panel) 27.0, POC Blood Urea Nitrogen (Misc Panel 32H, POC Ionized Calcium (Misc Panel) 4.7, POC Creatinine (Misc Panel) 2.6H, POC Hematocrit (Misc Panel) 31.0L 10/02/20 11:15: Coronavirus (COVID-19)(PCR) NEGATIVE, Influenza Type A (RT-PCR) NEGATIVE, Influenza Type B (RT-PCR) NEGATIVE, Respiratory Syncytial Virus (PCR) NEGATIVE 10/02/20 12:29: Urine Color YELLOW, Urine Appearance CLEAR, Urine pH 6.0, Urine Specific [place] 1.018, Urine Protein 2+H, Urine Glucose (UA) NEGATIVE, Urine Ketones TRACEH, Urine Blood 1+H, Urine Nitrite NEGATIVE, Urine Bilirubin NEGATIVE, Urine Urobilinogen 0.2, Urine Leukocyte Esterase NEGATIVE, Urine WBC (Auto) 1, Urine RBC (Auto) 11H, Urine Hyaline Casts (Auto) 0, Urine Bacteria (Auto) NEGATIVE, Urine Squamous Epithelial Cells 0, Urine Sperm (Auto) 10/02/20 13:15: Body Fluid Crystals NONE SEEN, Body Fluid Crystal Source RT KNEE CBC/BMP Laboratory Tests 10/02/20 10:26 Microbiology Microbiology 10/02/20 Gram Stain, Received Pending 10/02/20 Body Fluid Culture, Received Pending 10/02/20 Blood Culture, Received Pending 10/02/20 Blood Culture, Received Pending Allergies Coded Allergies: No Known Allergies (Verified , 08/10/19) Home Medications Scheduled Amlodipine Besylate (Amlodipine Besylate) 2.5 Mg Tablet, 2.5 MG PO DAILY, (Reported) Atenolol (Atenolol) 25 Mg Tab, 25 MG PO DAILY, (Reported) Calcitriol (Rocaltrol) 0.25 Mcg Capsule, 0.25 MCG PO 5XW, (Reported) MON THRU FRI Gabapentin (Gabapentin) 800 Mg Tab, 800 MG PO BID, (Reported) Hydralazine HCl (Hydralazine HCl) 10 Mg Tablet, 10 MG PO BID, (Reported) Simvastatin (Simvastatin) 20 Mg Tablet, 20 MG PO QHS, (Reported) Scheduled PRN Acetaminophen (Acetaminophen) 500 Mg Tablet, 1,000 MG PO Q6H PRN for PAIN / FEVER, (Reported) Tramadol HCl (Tramadol HCl) 50 Mg Tablet, 50 MG PO BID PRN for PAIN, (Reported) STEPHEN TILLMAN MD Oct 02, 2020 14:56
[2020-10-02] MEDS ORDERED: cefTRIAXone SOD 2 GM in D5W MINI-BAG PLUS 50 ML IV SCH (15:00)
[2020-10-02 15:06] VITALS: BP 140/65
[2020-10-02 15:24] LABS: SOURCE, BODY FLUID RT KNEE; SYNOVIAL FLUID COLOR AMBER (YELLOW)
[2020-10-02] MEDS: **hydrALAZINE** 10 MG TAB PO SCH ×2 (15:59→23:11)
[2020-10-02] MEDS: GABAPENTIN 400MG CAP PO SCH ×2 (15:59→23:11)
[2020-10-02] MEDS: LACTOBACILLUS ACIDOPHILUS CAP (BACID) PO SCH (16:48)
[2020-10-02] MEDS: atenoloL 25 MG TAB PO SCH (16:52)
[2020-10-02] MEDS ORDERED: LIDOCAINE 2% 100MG/5ML SDV (FOR ANES.) As Ordered ONE (17:29)
[2020-10-02] MEDS ORDERED: ONDANSETRON 4MG/2ML VIAL As Ordered ONE (17:29)
[2020-10-02] MEDS ORDERED: MIDAZOLAM INJ 2MG/2ML VIAL (J2250 PER 1MG) As Ordered ONE (17:29)
[2020-10-02] MEDS ORDERED: dexameTHASONE 4 MG/ML 1ML VIAL (J1100 PER 1MG) As Ordered ONE (17:29)
[2020-10-02] MEDS ORDERED: fentaNYL 100 MCG/2 ML INJECTION (J3010) As Ordered ONE (17:29)
[2020-10-02] MEDS ORDERED: propofoL 200 MG/20 ML VIAL As Ordered ONE (17:29)
[2020-10-02] MEDS ORDERED: BUPIVACAINE/EPIN 0.5% 30 ML VIAL As Ordered ONE (17:47)
[2020-10-02] MEDS ORDERED: TRANEXAMIC ACID 100 MG/ML 10ML VIAL As Ordered ONE (17:47)
[2020-10-02] MEDS ORDERED: ePHEDrine SULFATE 25 MG/5 ML(5MG/ML) SYRINGE As Ordered ONE (19:31)
[2020-10-02] MEDS ORDERED: HYDROMORPHONE HCL 0.5 MG/ 0.5 ML SYRINGE (J1170 PER 1) IV PRN (21:25)
[2020-10-02] MEDS ORDERED: LR 1,000 ML IV SCH (21:25)
[2020-10-02] MEDS ORDERED: ONDANSETRON 4MG/2ML VIAL IV PRN ×2 (21:25→22:30)
[2020-10-02] MEDS ORDERED: oxyCODONE 5MG TAB PO PRN (21:25)
[2020-10-02] MEDS ORDERED: fentaNYL 100 MCG/2 ML INJECTION (J3010) IV PRN (21:25)
[2020-10-02 22:45] VITALS: BP 111/57
[2020-10-02] MEDS: ASPIRIN 81MG ENTERIC TABLET PO SCH (23:10)
[2020-10-02] MEDS: SIMVASTATIN 20 MG TAB PO SCH (23:11)
[2020-10-02] MEDS: ceFAZolin SOD 2 GM in IV 1 EA IV SCH (23:11)
[2020-10-02] MEDS: LR 1,000 ML IV SCH (23:11)
[2020-10-02 23:15] VITALS: BP 125/76
--- NOTE | 2020-10-02 23:24 | ROOPDOC ---
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 Deep infection approximately 3 years postop. 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 PROCEDURE: 1. Irrigation and debridement of right knee with synovectomy. 2. Exchange of polyethylene liner. 3. Partial excision of heterotopic bone. 4. Lateral facetectomy of the patella. 5. Orthopedic cultures 6 Components: Triathlon 19 mm size 5 tibial universal tray polyethylene insert, TS SURGEON: Stephen Tillman MD CARD SORTER: Jessica Molina CST An contact lens assistant was utilized during this procedure to assist with retraction and manipulation of the extremity. ANESTHESIA: Gen. anesthetic. ESTIMATED BLOOD LOSS: Approximately 150 mL. COMPLICATIONS: No known complications. REMARKS: Contaminated case. PROCEDURE NOTE: The patient was taken to the operating room on an urgent basis for MSIS criteria consistent with a right total knee arthroplasty infection. DESCRIPTION OF PROCEDURE: The patient was seen in the preoperative area and the right knee was marked with a marking pen. The patient was then brought into the operating room and after an appropriate clarence. A general anesthetic was induced. The patient was positioned supine with all appropriate standard safety precautions and positioning and padding. A tourniquet. He was applied, however was not inflated during the procedure. The patient was receiving ceftriaxone and vancomycin antibiotics prior to surgery and these were continued. The patient did receive 1 g of IV tranexamic acid prior to incision. The leg was scrubbed with a chlorhexidine scrub brush. We was then cleansed with 2 alcohol-soaked 4 x 4 packs. 2. Chlorhexidine preps were carried out using the chlorhexidine wands, as well. The patient was draped in the normal standard fashion. It was noted that the patient did have some plantar flexion of the right foot compared to the left and there was some stiffness to the right knee, particularly at around 90 or so. A surgical safety checklist timeout was performed. After confirming the right lower extremity was correct and the timeout was completed. An incision was made along the pre-existing incision utilizing the skin knife. Medial lateral flaps were developed using electrocautery. Once this was established. A medial arthrotomy was carried out. Any prior suture material that was encountered was excised sharply. A medial arthrotomy was carried out. A 5 mL syringe was used to aspirate brownish thin fluid from the joint. The arthrotomy was completed and a quads snip was performed approximately 2-1/2 cm to assist with eversion of the patella to allow access to the joint as a result of significant heterotopic bone that was encountered at the proximal portion of the incision. Electrocautery was used to elevate the soft tissue off the anterior medial aspect of the tibia to a small extent to allow access to the knee joint as well. The prosthesis was inspected. The patellar, tibial, and femoral components appeared to be in good position without any obvious signs of loosening or undermining of the prosthesis at the bone cement interface. The debridement started with removal of excess soft tissue around the patella. This was carried up in the lateral gutter into the suprapatellar pouch region and then through the medial gutter. Multiple samples for Gram stain, culture and sensitivity were sent from these regions. Attention was then turned to the polyethylene liner. This was a size 5 universal tibia for the triathlon system based on observation and the operative report, which was obtained from [facility]. The polyethylene was unable to be elevated as a result of the constrained style liner. Therefore, an osteotome was used to remove the polyethylene from around the pin. The pin was then removed and then a small curved osteotome was used to remove the polyethylene liner. There did not appear to be any abnormal wear or tear to this. Culture samples were taken from the posterior capsular region as well as from tissue between the polyethylene and the metal tibial tray. Sample tissue totaled 6 samples for ortho cultures. The electrocautery was used to remove any soft tissue and completed the synovectomy. A medium Monreal was then used to curet the soft tissue surfaces to debridement mechanically any compromised tissue. A curet was used around the edges of the prosthesis for the same purpose. The wound was then irrigated with approximately 3 L of normal sterile saline utilizing a reduced velocity Pulse lavage. The wound was then partially filled with normal sterile saline, followed by Betadine, which was diluted in the normal sterile saline and 2 g of tranexamic acid which was instilled into the wound and allowed to sit for 3 minutes. At the end of 3 minutes, a 50-50 3% hydrogen peroxide and normal sterile saline solution was instilled into the wound and then immediately irrigated out with approximately 2.5 L of normal sterile saline. Approximately a portion of heterotopic bone was removed. This measured approximately 3-4 cm in length at a 1 mm to 1/2 mm diameter, in order to allow appropriate closure of the wound. I did not arturo all of the heterotopic bone, as this could potentially lead to the formation of more heterotopic bone or destabilize or weaken the quadriceps tendon and lead to rupture. The patellar component and patella was examined. There was an overhang of approximately 1/2 cm of bone at the lateral edge of the patella, which appeared to be causing some tightness laterally. Electrocautery was utilized to remove so ft tissue from the lateral edge and then a small rongeur was utilized to perform a lateral facetectomy of the patella. An additional irrigation was then performed with approximately 500 mL of normal sterile saline. An intra-articular pericapsular injection was carried out utilizing approximately 30 mL of 0.5% Marcaine with epi. The anesthesiologist was made aware at the time of injection of the local anesthetic. The triathlon polyethylene TS 19 mm component was then placed in position and impacted such that it was securely locked into the tibial tray. The support pin was then placed into the opening and impacted such that it was below the level of the surface of the post and appropriately positioned. The knee was taken through a range of motion and was found to be stable and tracking appropriately. Essentially the original and same size polyethylene liner was exchanged with no change in the component sizing. Betadine was placed into the wound and irrigated once again. Closure of the wound then began with closure of the arthrotomy utilizing interrupted vertical mattress and running #1 PDS sutures. Prior to complete closure, a large gauge SIDRA drain was placed laterally. It was ensured that this had free motion and was not secured by the sutures. A full-thickness closure of the skin and subcutaneous tissue was then carried out due to the quality of the scar tissue. A #1 PDS was utilized using interrupted vertical mattress sutures to appropriately align the skin edges. A 2. 0 PDS was then used in a running locking manner to make a watertight closure. During the closure of the wound edges were cleansed with the remaining Betadine. Bulb syringe irrigation was carried out as well. During the final closure of the skin. Electrocautery was utilized throughout the procedure for hemostasis. An Optifoam 14 inch dressing was placed over the wound and reinforced with Tegaderm. 3. Abdominal pads were placed over this. Tensors were then used to wrap the leg from the foot and ankle up to the thigh region. The patient tolerated the procedure well with no known complications. The patient will be admitted and treated by the hospitalist team. He will return to the telemetry floor that he was on preoperatively. He'll be reassessed postop day 1. The dressing will remain in place unless it is grossly soiled. The SIDRA drain will be reassessed tomorrow. If there is less than 50 mL of drainage and a 12 hour period that it will be removed tomorrow. The patient will be seen and assessed by physical therapy while in hospital. The orthopedic cultures from the surgery will be followed as well as the aspiration for gram stains, culture and sensitivity. This will help guide antibiotic treatment. The infectious disease team will likely be involved once cultures and sensitivity are identified. De pending on the nature of the organism, the patient will require antibiotic therapy versus possible staged revision procedure. Overall there did not appear to be an aggressive, destructive infection within the knee joint. He will be weightbearing as tolerated with a walker to aid with mobility and assessments by physical therapy. Stephen Tillman M.D. [facility] This document contains text that was generated through computerized voice- recognition software. Despite it being proofread, undetected computer-generated errors may exist. Please contact our office at [phone] if any clarification or correction is required. STEPHEN TILLMAN MD Oct 02, 2020 23:24
[2020-10-02 23:45] VITALS: BP 111/58
[2020-10-03] VITALS (10 sets, daily range): BP systolic 106–140; BP diastolic 56–80
--- NOTE | 2020-10-03 03:21 | ECGEPIP ---
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
[2020-10-03 06:25] LABS: HEMATOCRIT 26.6 % (42.0-52.0); HEMOGLOBIN 8.6 g/dl (13.5-17.5); MEAN CORPUSCULAR HEMOGLOBIN 33.3 pg (27.0-33.0); MEAN CORPUSCULAR HGB CONC 32.3 g/dl (32.0-36.5); MEAN CORPUSCULAR VOLUME 103.1 fl (80.0-96.0); RED BLOOD COUNT 2.58 10^6/uL (4.30-6.10); WHITE BLOOD COUNT 6.5 10^3/uL (4.0-10.0)
[2020-10-03 06:40] LABS: PLATELET COUNT, AUTOMATED 98 10^3/uL (150-450)
[2020-10-03 06:53] LABS: ERYTHROCYTE SEDIMENTATION RATE 128 mm/hr (0-20)
[2020-10-03 07:13] LABS: ALBUMIN 2.3 GM/DL (3.2-5.2); BILIRUBIN,TOTAL 0.2 MG/DL (0.2-1.0); C REACTIVE PROTEIN QUANTITATIV 34.9 MG/DL (0.00-0.30); CALCIUM LEVEL 7.5 MG/DL (8.8-10.2); CREATININE FOR GFR 2.21 MG/DL (0.70-1.30); GLOMERULAR FILTRATION RATE 31.2 (>42); POTASSIUM SERUM 4.3 MEQ/L (3.5-5.1); TOTAL PROTEIN 6.2 GM/DL (6.4-8.2)
--- NOTE | 2020-10-03 07:55 | REP ---
INDICATION: S/P KNEE REVISON/WASHOUT. COMPARISON: Comparison radiographs are from 12:09 p.m. on this same date.. TECHNIQUE: AP and lateral views. FINDINGS: AP and lateral views of the right knee demonstrate right knee arthroplasty components well aligned and unchanged in position. A supra patellar surgical drain is noted in place. There is periarticular soft tissue emphysema. Vascular calcification is seen. There are ossifications deposits in the soft tissues of the distal thigh musculature consistent with heterotopic bone formation/myositis os ossific cans. These were present previously.. Scratch. . IMPRESSION: Postoperative changes. Right knee arthroplasty. 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 <Electronically signed by Duane Robledo > 10/03/20 [id number]
[2020-10-03] MEDS ORDERED: TORSEMIDE 10 MG TABLET PO SCH (09:00)
[2020-10-03] MEDS: ASPIRIN 81MG ENTERIC TABLET PO SCH ×2 (09:26→20:52)
[2020-10-03] MEDS: ceFAZolin SOD 2 GM in IV 1 EA IV SCH (09:26)
[2020-10-03] MEDS: LACTOBACILLUS ACIDOPHILUS CAP (BACID) PO SCH ×2 (09:26→18:20)
[2020-10-03] MEDS: oxyCODONE 5MG TAB PO PRN ×2 (09:27→16:52)
[2020-10-03] MEDS: GABAPENTIN 400MG CAP PO SCH ×2 (09:27→20:52)
[2020-10-03] MEDS: atenoloL 25 MG TAB PO SCH (09:29)
[2020-10-03] MEDS: **hydrALAZINE** 10 MG TAB PO SCH ×2 (09:30→20:51)
[2020-10-03] MEDS: LR 1,000 ML IV SCH (09:31)
[2020-10-03 10:58] LABS: BODY FLUID RHEUMATOID SCREEN NEGATIVE (NEGATIVE)
--- NOTE | 2020-10-03 12:24 | IPNPDOC ---
Text Note Date of Service The patient was seen on 10/03/20. He is postop day #1 from a right total knee arthroplasty, irrigation and debridement with polyethylene liner exchange and removal of heterotopic bone with lateral facetectomy of the patella. The patient states that he had done well overnight. His pain seems to be relatively well- controlled. He denies any other complaints. He denies any chest pain or shortness of breath. The patient's dressing was in position. This tensor dressing was taken down and the abdominal pads were removed. The SIDRA drain was in position. There was approximately 10-15 mL of fluid in it. This was clear serosanguineous type flui d. He had reportedly had 70 mL drain overnight. The foam dressing is in position. There is some mild to moderate staining through the dressing. The right foot demonstrates the slight equinus position noted in the operating room which is consistent with the patient's reported drop foot from a spinal surgery. He does have some sensation, however, to the dorsum of the foot and is able to move his toes and his ankle approximately 30 or so in dorsiflexion. He has a strong palpable posterior tibial pulse. X-ray: X-ray imaging was independently ordered and reviewed by myself last night. This imaging demonstrated the right total knee arthroplasty prosthesis in good position with the drain also in position. There did not appear to be any complicating factors. Assessment and plan: The patient will be seen by physical therapy. His preliminary Gram stain shows some gram-positive cocci from the tissues and I believe one of the blood cultures as well. He is currently on IV antibiotics as managed by the hospitalist team. Final cultures and sensitivity will determine the treatment regimen, which is still pending. The SIDRA drain will remain in position and be reassessed later today for possible removal versus tomorrow morning. David Tillman M.D. [facility] VS,Lulú, I+O VS, Lulú, I+O Laboratory Tests 10/03/20 06:01 Vital Signs Date Time Temp Pulse Resp B/P (MAP) Pulse Ox O2 Delivery O2 Flow Rate FiO2 10/03/20 10:12 18 Room Air 10/03/20 10:00 98.8 72 124/64 (84) 93 10/03/20 06:00 0.5 I&O- Last 24 Hours up to 6 AM 10/03/20 05:59 Intake Total 3025 ml Output Total 720 ml Balance 2305 ml DAVID TILLMAN MD Oct 03, 2020 12:24
[2020-10-03] MEDS ORDERED: VANCOMYCIN HCL 1,000 MG, VIAL MATE ADAPTER 1 EACH in NS 250 ML IV SCH (13:00)
--- NOTE | 2020-10-03 16:39 | IPNPDOC ---
Date Seen The patient was seen on 10/03/20. Progress Note SUBJECTIVE: POD 1 Irrigation and debridement of right knee with synovectomy, exchange of polyethylene liner, partial excision of heterotopic bone, lateral facetectomy of the patella by orthopedic surgery (Dr. Hernández). Synovial fluid cx, blood cultures x 2 sets and tissue cultures + for staphyl ococcus aureus, sensitivities pending for all. On vancomycin with improving WBC, afebrile. Echocardiogram ordered with murmur being present on exam, patient does not remember being told he has this in past. OBJECTIVE: PHYSICAL EXAMINATION: VS: Please see below CONSTITUTIONAL: No acute distress, resting comfortably, AAO x 3 EYES: PERRLA, EOM intact HENT, MOUTH: Normocephalic, atraumatic, moist mucous membranes NECK: SUPPLE, no JVD, no lymphadenopathy, no carotid bruit CV: Murmur 2/6 systolic, Regular rate and rhythm, S1S2 normal, no rubs/gallops RESPIRATORY: Clear to auscultation bilaterally, no rales/rhonchi/wheezes GI: BS positive in 4 quadrants, soft, nontender, nondistended, no rebound or guarding, no organomegaly : Deferred MUSCULOSKELETAL: Normal ROM. No cyanosis, clubbing, swelling, joint deformity, extremity edema. PUlses present in all extremities INTEGUMENTARY:Right knee incision appears clean, SIDRA drain in place with minimal serosanguinous drainage present (<30 mL). Decreased erythema iright anterior harmon, right knee. Tenderness to area of right lateral, posterior and above knee slightly improved. +1 pitting edema b/l NEUROLOGIC: Cranial Nerves II-XII are intact, no focal deficits PSYCHIATRIC: Mood and affect are normal LABORATORY DATA: Please see below MICROBIOLOGY: BCx x 2 sets: Staph aureus, f/u sensitivities Right knee fluid cx from knee aspiration: Staph aureus, f/u sensitivities Right knee tissue cx: Staph aureus, f/u sensitivities IMAGING: CXR: Chronic stable changes. No focal consolidation or effusion. XR right knee : chronic changes as noted above- Relatively normal appearance to the orthopedic hardware but cannot exclude joint effusion Vascular US right LE: No DVT ASSESSMENT: 75-year-old male with PMH of CAD, hypertension, hyperlipidemia, chronic kidney disease stage III, chronic back pain, iron deficiency anemia admitted under hospitalist service for right knee pain rule out septic joint, right lower extremity cellulitis. 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 -POD 1 Irrigation and debridement of right knee with synovectomy, exchange of polyethylene liner, partial excision of heterotopic bone, lateral facetectomy of the patella -WBC wnl, afebrile over past 24H, ESR and CRP elevated -Micro above, awaiting sensitivities -For now, stop ancef, c/w vancomycin -Pain control with percocet, tylenol -Orthopedic surgery following Staphylococcus aureus bacteremia likely 2/2 to infected right knee arthroplasty -Micro above, new murmur so cannot r/o endocarditis at this time either -F/u echocardiogram, official final cx results -Vancomycin for now, can tailor when sensitivities become available -Consulted ID to follow Right LE cellulitis of anterior harmon, knee- intermittent for years per patient -warmth, edema in RLE- area where prior ulcers and prior area of trauma is present - slightly improved -F/u daily labs, c/w abx above Mechanical fall -PT: Pt will benefit from skilled PT intervention during acute hospitalization to improve overall (I) with functional mobility. -C/w PT/OT HTN -BP controlled -C/w home medications. ? GILDA on CKD Stage III -Baseline Cr believed to be 1.8-1.9 -TB with office in the AM to see what baseline on file is for them -On IVFs -F/u daily labs, avoid other nephrotoxic medications Elevated BNP, ? CHF vs. 2/2 to kidney disease -BNP 1188, b/l lower ext edema not severe -No SOB, concerning findings on CXR -C/w BB, CCB -Monitor for changes HLD -C/w home med Chronic back pain -C/w gabapentin, percocet above Iron deficiency anemia -Stable Thrombocytopenia -PLTs 98 -Monitor daily, if worsens, stop ASA DVT px -ASA bid per ortho DISPOSITION: Admitted under hospitalist service with orthopedic surgery consulted. ID consulted today. Plan is discharge home when medically improved. VS, I&O, 24H, Fishbone Vital Signs/I&O Vital Signs Date Time Temp Pulse Resp B/P (MAP) Pulse Ox O2 Delivery O2 Flow Rate FiO2 10/03/20 14:50 99.1 70 18 140/76 (97) 92 Room Air 10/03/20 06:00 0.5 I&O- Last 24 Hours up to 6 AM 10/03/20 06:00 Intake Total 3625 ml Output Total 720 ml Balance 2905 ml Laboratory Data 24H LABS Laboratory Tests 2 10/03/20 06:01: Nucleated Red Blood Cells % (auto) 0.0, Immature Platelet Fraction 4.2, Erythrocyte Sedimentation Rate 128H, Anion Gap 6L, Glomerular Filtration Rate 31.2L, Calcium Level 7.5L, Total Bilirubin 0.2, Aspartate Amino Transf (AST/SGOT) 61H, Alanine Aminotransferase (ALT/SGPT) 27, Alkaline Phosphatase 51, C-Reactive Protein, Quantitative 34.90H, Total Protein 6.2L, Albumin 2.3L, Albumin/Globulin Ratio 0.6 CBC/BMP Laboratory Tests 10/03/20 06:01 Microbiology Microbiology 10/02/20 Gram Stain - Final, Resulted 10/02/20 Surgical Biopsy Culture, Resulted Pending 10/02/20 Gram Stain - Final, Resulted 10/02/20 Surgical Biopsy Culture, Resulted Pending 10/02/20 Gram Stain - Final, Resulted 10/02/20 Surgical Biopsy Culture - Preliminary, Resulted Staphylococcus Aureus 10/02/20 Gram Stain - Final, Resulted 10/02/20 Surgical Biopsy Culture - Preliminary, Resulted Staphylococcus Aureus 10/02/20 Gram Stain - Final, Resulted 10/02/20 Surgical Biopsy Culture, Resulted Pending 10/02/20 Gram Stain - Final, Resulted 10/02/20 Surgical Biopsy Culture, Resulted Pending 10/02/20 Gram Stain - Final, Resulted 10/02/20 Body Fluid Culture, Resulted Pending 10/02/20 Gram Stain - Final, Resulted 10/02/20 Body Fluid Culture - Preliminary, Resulted Staphylococcus Aureus 10/02/20 Blood Culture - Preliminary, Resulted 10/02/20 Blood Culture - Preliminary, Resulted Current Medications Current Medications Medications (Trade) Dose Ordered Sig/Samanta Route PRN Reason Start Time Stop Time Status Last Admin Dose Admin Acetaminophen (Tylenol Tab) 650 mg Q4HP PRN PO MILD PAIN OR FEVER 10/02/20 22:30 Acetaminophen (Tylenol Tab) 650 mg Q6HP PRN PO PAIN OR FEVER 10/02/20 13:40 10/02/20 22:23 DC Amlodipine Besylate (Norvasc) 2.5 mg DAILY PO 10/02/20 09:00 10/03/20 09:30 Aspirin (Ecotrin) 81 mg BID PO 10/02/20 21:00 10/03/20 09:26 Atenolol (Tenormin) 25 mg DAILY PO 10/02/20 09:00 10/03/20 09:29 Benzocaine/ Butamben/ Tetracaine HCl (Cetacaine 2-2-14 %) 1 spray STAT STAT TOP 10/02/20 12:35 10/02/20 12:37 DC Cefazolin Sodium/ Dextrose 2 gm/IV Miscellaneous Supplies 50 ml @ 75 mls/hr Q8H IV 10/03/20 00:00 10/03/20 09:26 Ceftriaxone Sodium 2 gm/ Dextrose 50 ml @ 100 mls/hr Q24H IV 10/02/20 15:00 10/02/20 22:23 DC 10/02/20 16:49 Fentanyl Citrate (Sublimaze) 25 mcg Q5MP PRN IV PAIN LEVEL 5-10 10/02/20 21:25 10/02/20 22:28 DC Gabapentin (Neurontin) 800 mg BID PO 10/02/20 09:00 10/03/20 09:27 Heparin Sodium (Porcine) (Heparin) 5,000 units Q8H SC 10/02/20 09:00 10/02/20 15:02 DC Home Med (Med Rec Complete!) ASDIRECTED XX 10/02/20 13:25 10/02/20 13:36 DC Hydralazine HCl (Apresoline) 10 mg BID PO 10/02/20 09:00 10/03/20 09:30 Hydromorphone HCl (Dilaudid) 0.2 mg Q5MP PRN IV PAIN LEVEL 4-7 10/02/20 21:25 10/02/20 22:28 DC Lactated Ringer's 1,000 ml @ 100 mls/hr Q10H IV 10/02/20 21:25 10/02/20 22:28 DC Lactated Ringer's 1,000 ml @ 100 mls/hr Q10H IV 10/02/20 22:25 10/03/20 16:30 DC 10/02/20 23:11 Lactobacillus Acidophilus (Bacid) 1 ea BIDWM PO 10/02/20 18:00 10/03/20 09:26 Ondansetron HCl (ZOFRAN INJection) 4 mg Q4HP PRN IV NAUSEA OR VOMITING 10/02/20 21:25 10/02/20 22:23 DC Ondansetron HCl (ZOFRAN INJection) 4 mg Q6HP PRN IV NAUSEA 10/02/20 22:30 Oxycodone HCl (Roxicodone, Oxyir) 5 mg ASDIRECTED PRN PO PAIN LEVEL 1-4 10/02/20 21:25 10/02/20 22:28 DC Oxycodone HCl (Roxicodone, Oxyir) 5 mg Q6HP PRN PO MODERATE PAIN (PS 5-7) 10/02/20 22:30 10/03/20 09:27 Oxycodone HCl (Roxicodone, Oxyir) 10 mg Q6HP PRN PO SEVERE PAIN (PS 8-10) 10/02/20 22:30 Oxycodone/ Acetaminophen (Percocet 5mg/ 325mg Tablet) 1 tab Q6HP PRN PO MODERATE PAIN (PS 5-7) 10/02/20 13:40 10/02/20 22:23 DC 10/02/20 16:53 Oxycodone/ Acetaminophen (Percocet 5mg/ 325mg Tablet) 2 tab Q6HP PRN PO SEVERE PAIN (PS 8-10) 10/02/20 13:40 10/02/20 22:23 DC Simvastatin (Zocor) 20 mg QHS PO 10/02/20 21:00 10/02/20 23:11 Sodium Chloride 1,000 ml @ 100 mls/hr Q10H IV 10/02/20 14:20 10/02/20 22:23 DC 10/02/20 16:49 Torsemide (Demadex) 10 mg DAILY PO 10/03/20 09:00 Cancel Torsemide (Demadex) 10 mg STAT STAT PO 10/02/20 11:46 10/02/20 11:49 DC 10/02/20 11:51 Vancomycin HCl 1000 mg/IV Miscellaneous Supplies 1 each/ Sodium Chloride 270 ml @ 270 mls/hr Q24H IV 10/03/20 13:00 10/03/20 13:21 Allergies Coded Allergies: No Known Allergies (Verified , 08/10/19) Joanne Boone MD Oct 03, 2020 16:39
[2020-10-03] MEDS: SIMVASTATIN 20 MG TAB PO SCH (20:51)
[2020-10-04 06:00] VITALS: BP 121/79
[2020-10-04 06:29] LABS: HEMATOCRIT 28.5 % (42.0-52.0); MEAN CORPUSCULAR HEMOGLOBIN 32.7 pg (27.0-33.0); MEAN CORPUSCULAR HGB CONC 31.6 g/dl (32.0-36.5); MEAN CORPUSCULAR VOLUME 103.6 fl (80.0-96.0); PLATELET COUNT, AUTOMATED 112 10^3/uL (150-450); RED BLOOD COUNT 2.75 10^6/uL (4.30-6.10); WHITE BLOOD COUNT 5.4 10^3/uL (4.0-10.0)
[2020-10-04 06:55] LABS: ALBUMIN 2.5 GM/DL (3.2-5.2); BILIRUBIN,TOTAL 0.2 MG/DL (0.2-1.0); C REACTIVE PROTEIN QUANTITATIV 18.1 MG/DL (0.00-0.30); CALCIUM LEVEL 8.1 MG/DL (8.8-10.2); CREATININE FOR GFR 1.92 MG/DL (0.70-1.30); GLOMERULAR FILTRATION RATE 36.7 (>42); TOTAL PROTEIN 6.6 GM/DL (6.4-8.2)
[2020-10-04 07:02] LABS: ERYTHROCYTE SEDIMENTATION RATE 106 mm/hr (0-20)
--- NOTE | 2020-10-04 08:09 | IPNPDOC ---
Text Note Date of Service The patient was seen on 10/04/20. NOTE The patient is seen postop day 2 for irrigation and debridement with liner ex change for a right septic knee joint. The patient states that he was having some pain and discomfort for about half an hour when I saw him this morning. This appears to be in his thigh and is likely associated with the muscular pain from disruption of the quadriceps tendon and during the approach for surgery. Nursing arrived during our conversation to get him pain medication. Otherwise, he had been sitting up in the chair yesterday and doing minimal physical therapy. He stated that it was painful to weight-bear. History and had approximately 15-20 mL of serosanguineous thin fluid. I did not want to continue the drain longer than postop day 2, so this was removed. The Tegaderm dressing was elevated and the sponge for the drain was removed and the entire length of the drain tubing was removed without any obvious signs of tearing and there was no resistance to removal of the drain. A 4 x 4 pressure dressing using Tegaderm was placed over this. I will reassess the patient later today and perform a dressing change, if necessary. After seeing the patient this morning, I have reviewed the microbiology reports in the office. Gram stain from the blood samples and soft tissue samples indic ates that there is staphylococci present. The initial culture from the emergency room Aspiration has had sensitivities performed and it appears that the organism is resistant to penicillin. I will have to discuss the options with the patient in terms of continuing with antibiotic therapy versus a staged revision procedure. I will also consider entering a muscle relaxant due to his quadriceps pain. VS,Fishbone, I+O VS, Fishbone, I+O Laboratory Tests 10/04/20 06:02 Vital Signs Date Time Temp Pulse Resp B/P (MAP) Pulse Ox O2 Delivery O2 Flow Rate FiO2 10/04/20 06:00 98.2 86 18 121/79 (93) 92 Room Air 10/03/20 21:00 1.0 I&O- Last 24 Hours up to 6 AM 10/04/20 05:59 Intake Total 2620 ml Output Total 1075 ml Balance 1545 ml STEPHEN TILLMAN MD Oct 04, 2020 08:08
[2020-10-04] MEDS: oxyCODONE 5MG TAB PO PRN ×2 (08:15→18:32)
[2020-10-04] MEDS: LACTOBACILLUS ACIDOPHILUS CAP (BACID) PO SCH ×2 (08:16→16:44)
[2020-10-04] MEDS: GABAPENTIN 400MG CAP PO SCH ×2 (08:16→21:17)
[2020-10-04] MEDS: ASPIRIN 81MG ENTERIC TABLET PO SCH ×2 (08:16→21:17)
[2020-10-04] MEDS: atenoloL 25 MG TAB PO SCH (08:19)
[2020-10-04] MEDS: **hydrALAZINE** 10 MG TAB PO SCH ×2 (08:19→21:18)
[2020-10-04] MEDS: NAFCILLIN SOD 2 GM in D5W MINI-BAG PLUS 50 ML IV SCH ×3 (13:10→21:15)
--- NOTE | 2020-10-04 13:41 | IPNPDOC ---
Date Seen The patient was seen on 10/04/20. Progress Note SUBJECTIVE: Synovial fluid cx, blood cultures x 2 sets and tissue cultures + for MSSA, sensitivities pending for all. Switched to Nafcillin from vancomycin. Echocardiogram pending results. Denies chest pain, fevers, chills, shortness of breath. OBJECTIVE: PHYSICAL EXAMINATION: VS: Please see below CONSTITUTIONAL: No acute distress, resting comfortably, AAO x 3 EYES: PERRLA, EOM intact HENT, MOUTH: Normocephalic, atraumatic, moist mucous membranes NECK: SUPPLE, no JVD, no lymphadenopathy, no carotid bruit CV: Murmur 2/6 systolic, Regular rate and rhythm, S1S2 normal, no rubs/gallops RESPIRATORY: Clear to auscultation bilaterally, no rales/rhonchi/wheezes GI: BS positive in 4 quadrants, soft, nontender, nondistended, no rebound or guarding, no organomegaly : Deferred MUSCULOSKELETAL: Normal ROM. No cyanosis, clubbing, swelling, joint deformity, extremity edema. PUlses present in all extremities INTEGUMENTARY:Right knee incision appears clean, SIDRA drain no longer present. De creased erythema right anterior harmon, right knee. Tenderness to area of right lateral, posterior and above knee slightly improved. +1 pitting edema RLE NEUROLOGIC: Cranial Nerves II-XII are intact, no focal deficits PSYCHIATRIC: Mood and affect are normal LABORATORY DATA: Please see below MICROBIOLOGY: BCx x 2 sets: MSSA Right knee fluid cx from knee aspiration: MSSA Right knee tissue cx: MSSA IMAGING: CXR: Chronic stable changes. No focal consolidation or effusion. XR right knee : chronic changes as noted above- Relatively normal appearance to the orthopedic hardware but cannot exclude joint effusion Vascular US right LE: No DVT ASSESSMENT: 75-year-old male with PMH of CAD, hypertension, hyperlipidemia, chronic kidney disease stage III, chronic back pain, iron deficiency anemia admitted under hospitalist service for right knee pain rule out septic joint, right lower extremity cellulitis. 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 with bacteremia, MSSA -POD 2 Irrigation and debridement of right knee with synovectomy, exchange of polyethylene liner, partial excision of heterotopic bone, lateral facetectomy of the patella -WBC wnl, remains afebrile , ESR and CRP elevated -Micro above -Stopped vancomycin, started on nafcillin -Pain control with percocet, tylenol -SIDRA drain taken out today -Will need prolonged IV abx, PICC once new blood cultures neg -Orthopedic surgery, ID consulted MSSA bacteremia likely 2/2 to chronic lower ext wound (now healed), cellulitis with infected right knee arthroplasty -Micro above, new murmur so cannot r/o endocarditis at this time either -F/u echocardiogram, MICRO above -F/u repeat BCx -Nafcillin IV, rifampin will need to be added at some point. 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 -C/w PT/OT HTN -BP controlled -C/w home medications. CKD Stage III -Baseline Cr believed to be 1.8, confirmed with nephrology office -D/c IVFs today, encourage fluids -F/u daily labs, avoid other nephrotoxic medications Elevated BNP, ? CHF vs. 2/2 to kidney disease -BNP 1188, b/l lower ext edema not severe -No SOB, concerning findings on CXR -F/u echo -C/w BB, CCB -Monitor for changes HLD -C/w home med Chronic back pain -C/w gabapentin, percocet above Iron deficiency anemia -Stable Thrombocytopenia -PLTs 112 -Monitor daily, if worsens, stop ASA DVT px -ASA bid per ortho DISPOSITION: Admitted under hospitalist service with orthopedic surgery consulted. ID following. Plan is discharge home when medically improved. VS, I&O, 24H, Fishbone Vital Signs/I&O Vital Signs Date Time Temp Pulse Resp B/P (MAP) Pulse Ox O2 Delivery O2 Flow Rate FiO2 10/04/20 08:53 18 10/04/20 08:19 106 154/99 10/04/20 08:15 Room Air 10/04/20 06:00 98.2 92 10/03/20 21:00 1.0 I&O- Last 24 Hours up to 6 AM 10/04/20 05:59 Intake Total 2620 ml Output Total 1075 ml Balance 1545 ml Laboratory Data 24H LABS Laboratory Tests 2 10/04/20 06:02: Nucleated Red Blood Cells % (auto) 0.0, Erythrocyte Sedimentation Rate 106H, Anion Gap 6L, Glomerular Filtration Rate 36.7L, Calcium Level 8.1L, Total Bilirubin 0.2, Aspartate Amino Transf (AST/SGOT) 61H, Alanine Aminotransferase (ALT/SGPT) 21, Alkaline Phosphatase 58, C-Reactive Protein, Quantitative 18.10H, Total Protein 6.6, Albumin 2.5L, Albumin/Globulin Ratio 0.6 CBC/BMP Laboratory Tests 10/04/20 06:02 Microbiology Microbiology 10/04/20 Blood Culture, Received Pending 10/02/20 Gram Stain - Final, Resulted 10/02/20 Surgical Biopsy Culture, Resulted Pending 10/02/20 Gram Stain - Final, Resulted 10/02/20 Surgical Biopsy Culture - Preliminary, Resulted Staphylococcus Aureus 10/02/20 Gram Stain - Final, Complete 10/02/20 Surgical Biopsy Culture - Final, Complete Staphylococcus Aureus 10/02/20 Gram Stain - Final, Complete 10/02/20 Surgical Biopsy Culture - Final, Complete Staphylococcus Aureus 10/02/20 Gram Stain - Final, Resulted 10/02/20 Surgical Biopsy Culture - Preliminary, Resulted Staphylococcus Aureus 10/02/20 Gram Stain - Final, Resulted 10/02/20 Surgical Biopsy Culture - Preliminary, Resulted Staphylococcus Aureus 10/02/20 Gram Stain - Final, Resulted 10/02/20 Body Fluid Culture, Resulted Pending 10/02/20 Gram Stain - Final, Complete 10/02/20 Body Fluid Culture - Final, Complete Staphylococcus Aureus 10/02/20 Blood Culture - Preliminary, Resulted Staphylococcus Aureus 10/02/20 Blood Culture - Preliminary, Resulted Staphylococcus Aureus Current Medications Current Medications Medications (Trade) Dose Ordered Sig/Samanta Route PRN Reason Start Time Stop Time Status Last Admin Dose Admin Acetaminophen (Tylenol Tab) 650 mg Q4HP PRN PO MILD PAIN OR FEVER 10/02/20 22:30 10/03/20 19:20 Acetaminophen (Tylenol Tab) 650 mg Q6HP PRN PO PAIN OR FEVER 10/02/20 13:40 10/02/20 22:23 DC Amlodipine Besylate (Norvasc) 2.5 mg DAILY PO 10/02/20 09:00 10/04/20 08:20 Aspirin (Ecotrin) 81 mg BID PO 10/02/20 21:00 10/04/20 08:16 Atenolol (Tenormin) 25 mg DAILY PO 10/02/20 09:00 10/04/20 08:19 Benzocaine/ Butamben/ Tetracaine HCl (Cetacaine 2-2-14 %) 1 spray STAT STAT TOP 10/02/20 12:35 10/02/20 12:37 DC Cefazolin Sodium/ Dextrose 2 gm/IV Miscellaneous Supplies 50 ml @ 75 mls/hr Q8H IV 10/03/20 00:00 10/03/20 16:43 DC 10/03/20 09:26 Ceftriaxone Sodium 2 gm/ Dextrose 50 ml @ 100 mls/hr Q24H IV 10/02/20 15:00 10/02/20 22:23 DC 10/02/20 16:49 Fentanyl Citrate (Sublimaze) 25 mcg Q5MP PRN IV PAIN LEVEL 5-10 10/02/20 21:25 10/02/20 22:28 DC Gabapentin (Neurontin) 800 mg BID PO 10/02/20 09:00 10/04/20 08:16 Heparin Sodium (Porcine) (Heparin) 5,000 units Q8H SC 10/02/20 09:00 10/02/20 15:02 DC Home Med (Med Rec Complete!) ASDIRECTED XX 10/02/20 13:25 10/02/20 13:36 DC Hydralazine HCl (Apresoline) 10 mg BID PO 10/02/20 09:00 10/04/20 08:19 Hydromorphone HCl (Dilaudid) 0.2 mg Q5MP PRN IV PAIN LEVEL 4-7 10/02/20 21:25 10/02/20 22:28 DC Lactated Ringer's 1,000 ml @ 100 mls/hr Q10H IV 10/02/20 21:25 10/02/20 22:28 DC Lactated Ringer's 1,000 ml @ 100 mls/hr Q10H IV 10/02/20 22:25 10/03/20 16:30 DC 10/02/20 23:11 Lactobacillus Acidophilus (Bacid) 1 ea BIDWM PO 10/02/20 18:00 10/04/20 08:16 Nafcillin Sodium 2 gm/Dextrose 50 ml @ 50 mls/hr Q4H IV 10/04/20 12:00 10/04/20 13:10 Ondansetron HCl (ZOFRAN INJection) 4 mg Q4HP PRN IV NAUSEA OR VOMITING 10/02/20 21:25 10/02/20 22:23 DC Ondansetron HCl (ZOFRAN INJection) 4 mg Q6HP PRN IV NAUSEA 10/02/20 22:30 Oxycodone HCl (Roxicodone, Oxyir) 5 mg ASDIRECTED PRN PO PAIN LEVEL 1-4 10/02/20 21:25 10/02/20 22:28 DC Oxycodone HCl (Roxicodone, Oxyir) 5 mg Q6HP PRN PO MODERATE PAIN (PS 5-7) 10/02/20 22:30 10/03/20 09:27 Oxycodone HCl (Roxicodone, Oxyir) 10 mg Q6HP PRN PO SEVERE PAIN (PS 8-10) 10/02/20 22:30 10/04/20 08:15 Oxycodone/ Acetaminophen (Percocet 5mg/ 325mg Tablet) 1 tab Q6HP PRN PO MODERATE PAIN (PS 5-7) 10/02/20 13:40 10/02/20 22:23 DC 10/02/20 16:53 Oxycodone/ Acetaminophen (Percocet 5mg/ 325mg Tablet) 2 tab Q6HP PRN PO SEVERE PAIN (PS 8-10) 10/02/20 13:40 10/02/20 22:23 DC Simvastatin (Zocor) 20 mg QHS PO 10/02/20 21:00 10/03/20 20:51 Sodium Chloride 1,000 ml @ 100 mls/hr Q10H IV 10/02/20 14:20 10/02/20 22:23 DC 10/02/20 16:49 Torsemide (Demadex) 10 mg DAILY PO 10/03/20 09:00 Cancel Torsemide (Demadex) 10 mg STAT STAT PO 10/02/20 11:46 10/02/20 11:49 DC 10/02/20 11:51 Vancomycin HCl 1000 mg/IV Miscellaneous Supplies 1 each/ Sodium Chloride 270 ml @ 270 mls/hr Q24H IV 10/03/20 13:00 10/04/20 10:28 DC 10/03/20 13:21 Allergies Coded Allergies: No Known Allergies (Verified , 08/10/19) Joanne Boone MD Oct 04, 2020 13:41
[2020-10-04 14:00] VITALS: BP 127/63
[2020-10-04] MEDS: SIMVASTATIN 20 MG TAB PO SCH (21:17)
[2020-10-04 22:00] VITALS: BP 143/68
[2020-10-05] MEDS: NAFCILLIN SOD 2 GM in D5W MINI-BAG PLUS 50 ML IV SCH ×6 (00:47→20:57)
[2020-10-05 06:00] VITALS: BP 123/71
[2020-10-05 07:43] LABS: HEMATOCRIT 27.6 % (42.0-52.0); HEMOGLOBIN 8.5 g/dl (13.5-17.5); MEAN CORPUSCULAR HEMOGLOBIN 32.1 pg (27.0-33.0); MEAN CORPUSCULAR HGB CONC 30.8 g/dl (32.0-36.5); MEAN CORPUSCULAR VOLUME 104.2 fl (80.0-96.0); PLATELET COUNT, AUTOMATED 107 10^3/uL (150-450); RED BLOOD COUNT 2.65 10^6/uL (4.30-6.10)
[2020-10-05 08:08] LABS: ALBUMIN 2.2 GM/DL (3.2-5.2); BILIRUBIN,TOTAL 0.9 MG/DL (0.2-1.0); C REACTIVE PROTEIN QUANTITATIV 17.4 MG/DL (0.00-0.30); CALCIUM LEVEL 7.7 MG/DL (8.8-10.2); CREATININE FOR GFR 1.9 MG/DL (0.70-1.30); GLOMERULAR FILTRATION RATE 37.2 (>42); POTASSIUM SERUM 3.7 MEQ/L (3.5-5.1); TOTAL PROTEIN 5.6 GM/DL (6.4-8.2)
[2020-10-05 08:18] LABS: ERYTHROCYTE SEDIMENTATION RATE 126 mm/hr (0-20)
[2020-10-05 08:26] VITALS: BP 102/68
[2020-10-05] MEDS: LACTOBACILLUS ACIDOPHILUS CAP (BACID) PO SCH ×2 (08:43→18:12)
[2020-10-05] MEDS: ASPIRIN 81MG ENTERIC TABLET PO SCH ×2 (08:43→21:02)
[2020-10-05] MEDS: **hydrALAZINE** 10 MG TAB PO SCH ×2 (08:43→21:02)
[2020-10-05] MEDS: atenoloL 25 MG TAB PO SCH (08:44)
[2020-10-05] MEDS: GABAPENTIN 400MG CAP PO SCH ×2 (08:44→21:02)
--- NOTE | 2020-10-05 09:24 | CR ---
INFECTIOUS DISEASE CONSULTATION DATE: 10/04/2020 REQUESTING PHYSICIAN: Dr. Joanne Boone REASON FOR CONSULTATION: Right knee prosthetic joint infection. HISTORY OF PRESENT ILLNESS: Hossein is a pleasant 75-year-old male with pertinent past medical history of bilateral total knee arthroplasties done in February and March of 2018 (right knee February, left knee March), coronary artery disease with history of KS at [id number] and catheterization with no stents, cervical fusion C1-C7 with subhash placement, L1-S1 decompression back surgery, and recurrent right lower extremity cellulitis of the anterior harmon, who presented to [facility] Emergency Department on Friday, October 02, 2020 with a chief complaint of increasing pain of his right knee. Two days prior on September 30, he reported a sudden increase in right knee pain, swelling, and warmth. The pain got to the point where he started using a walker at home for ambulatory assistance. It was on October 02, when he subsequently had a fall onto his walker making primary contact with his right upper extremity. He denied any loss of consciousness, but did have a right upper extremity abrasion. After this fall, he subsequently called 911 and was brought in by EMS. He had no accompanying chest pain, shortness of breath or palpitations associated with the fall. Upon presentation to the ED, he was hypertensive (systolic blood pressure of 180) and febrile (T-max of 102.4). A right knee x-ray was done, showing chronic changes with relatively normal appearance to the hardware implanted during the 2018 arthroplasty, but joint effusion could not be excluded. Vascular lower extremity ultrasound was negative. The ED contacted orthopedic surgery (Dr. Hernández), who came and evaluated the patient at the bedside primarily due to concerns of a prosthetic joint infection. Initial labs showed elevated CRP, ESR and leukocytosis (WBC 10.1). An arthrocentesis of the right knee was performed and with patient's presentation, empiric Vancomycin and Ceftriaxone were started. There was also some concern about right lower extremity anterior harmon cellulitis. Patient was subsequently admitted under the care of the hospitalist service for possible septic joint from a prosthetic joint infection and right lower extremity cellulitis. Analysis of the synovial fluid revealed a white count of greater than 45,000 with predominant neutrophils over 86%. Per Dr. 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 In addition, the color of the synovial fluid was described as cloudy. It was at this point that Dr. Hernández made the decision to take patient to the Operating Room for planned irrigation and debridement of the right knee with possible revision of the hardware and liner change. Patient subsequently had this procedure done on 10/02/20 and resulted in a one step surgical procedure of the infected prosthetic joint. Specifically, Dr. Hernández performed an irrigation and debridement with polyethylene liner exchange and removed heterotrophic bone, with a lateral facetectomy of the patella. A SIDRA drain was also placed on the lateral aspect of the right knee. Post procedure x-ray showed the right knee arthroplasty prosthesis was in good position as was the drain and there did not appear to be any complicating factors. At this point, patient was kept on vancomycin and second antibiotic was switched to Cefazolin (Ancef). The next morning (10/03/20), hospitalist service discontinued the Ancef once synovial fluid culture revealed Staphylococcus Aureus on multiple different aspirate cultures. He was subsequently maintained on vancomycin as monotherapy throughout the day on 10/03/20 as sensitivities were waiting to return. It was at this point that Dr. Boone contacted the infectious disease service for consultation primarily for antimicrobial management in the setting of a prosthetic joint infection. ALLERGIES: No known allergies. HOME MEDICATIONS: 1. Amlodipine 2.5 mg p.o. daily. 2. Atenolol 25 mg p.o. daily. 3. Gabapentin 800 mg p.o. b.i.d. 4. Hydralazine 10 mg p.o. b.i.d. 5. Simvastatin 20 mg p.o. q.h.s. 6. Calcitriol 0.25 mcg p.o. five times a week Wednesday through Wednesday. 7. P.r.n. Tramadol 50 mg p.o. b.i.d. 8. P.r.n. Acetaminophen 500 mg every 6 hours. PAST MEDICAL HISTORY: 1. Coronary artery disease; status post reported KS 27 years ago when patient was [id number] with reported cardiac catheterization and no stent placement. 2. Chronic kidney disease stage 3. 3. Hyperlipidemia. 4. Cervical and lumbar spine disease; status post C1-C7 neck fusion with subhash placement and L1-S1 decompression. 5. Iron deficiency anemia. 6. Colon polyps. 7. Right lower extremity recurrent cellulitis of the anterior harmon. PAST SURGICAL HISTORY: 1. Bilateral total knee arthroplasties performed right knee (February 2018) and left knee (March 2018) at [facility] with Dr. Gary. 2. L1-S1 decompression back surgery. 3. C1-C7 spinal fusion with subhash placement. 4. Colonoscopy in July 2019, showing colon polyps. FAMILY HISTORY: Father- at age 67, colorectal cancer. Mother- at age 83 with no reported medical issues. SOCIAL HISTORY: He is a former smoker; having smoked one pack of cigarettes per day for 20 years and quit 25 years ago. He denies any significant current or former alcohol use. He denies any current or former illicit drug use. He reportedly is very active, exercising several days a week at [employer]. 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 He is and has been so for 52 years. He rarely follows with [facility], who are his listed primary care provider. He also does follow with Dr. Melinda Ron of the nephrology service. PHYSICAL EXAMINATION: VITALS: Temperature 98.2 (T-max 100.4), heart rate 86, respiratory rate 18, blood pressure 121/79, SPO2 of 92% on 1 liter of nasal cannula supplemental oxygen. BMI of 25.8. GENERAL: A very pleasant elderly male, lying upright in bed, in no acute distress. Alert and oriented x3. HEENT: There are multiple areas over bilateral cheeks as well as the vertex of the scalp of small scattered erythematous macules. Non-injected, anicteric sclerae. He is wearing eye glasses. No significant conjunctival pallor. Mucous membranes are somewhat dry. There are a few missing teeth both upper and lower as well as some visualized caries. NECK: Supple. Trachea midline. No lymphadenopathy appreciated. CARDIOVASCULAR: Regular rate, regular rhythm. There is a 2/6 crescendo-decrescendo systolic murmur appreciated most prominently over the right second parasternal intercostal space. No rubs are appreciated. 2+ radial and posterior tibial pulses bilaterally. There is good capillary refill both of fingers and toes. RESPIRATORY: Somewhat diminished tidal volume with scant crackles in the bases posteriorly. No other adventitious breath sounds were appreciated. Symmetric chest expansion. Breathing with 1 liter of nasal cannula supplemental oxygen. Speaking full sentences. GASTROINTESTINAL: Abdomen is soft, nontender, non-distended. There is no rigidity nor guarding appreciated. Normoactive bowel sounds throughout. EXTREMITIES: There is a roughly 18 to 20 cm vertical incision with stitches in place overlying the right anterior knee. The right knee is marketing administrative assistant comparison to the left knee. There is moderately more swelling of the right knee than the left. There is no active drainage from the recent surgical incision and there is no significant induration appreciated along the incision line. There is also a 1 cm diameter open incision on the lateral aspect of the right knee. There is 1+ pitting edema of the right lower extremity with some distal right lower extremity erythema and mild hardening of the skin. There is an indentation as well on the distal anterior harmon of the right lower extremity. There is bilateral onychomycosis, but no significant tinea pedis is appreciated. Adequate capillary refill with 2+ posterior tibial pulses bilaterally. There is a tattoo present over the left deltoid. MUSCULOSKELETAL: Patient is able to extend his knee close to 180 degrees and flex it to about 120 to 130 degrees. We did witness him, at one point during the exam, move to a bedside chair with assistance. He was not putting much weight at all on the right lower extremity. NEUROLOGIC: Patient is awake, alert and oriented x3. No focal deficits appreciated. Non-dysarthric speech. IMPRESSION/PLAN: 1. Right knee prosthetic joint infection; status post one step surgical irrigation and debridement with polyethylene liner exchange and removal of heterotrophic bone with lateral facetectomy of the patella. -Patient is currently postoperative day #2. It appears his fever broke yesterday evening, and he has remained afebrile since that point. His white count has now been within normal limits for the past 48 hours. He is on day #3 of vancomycin and received one day each of Ceftriaxone and Cefazolin. Sensitivities to the synovial fluid culture, which grew Staphylococcus Aureus, indicate that this is a Methicillin sensitive Staphylococcus Aureus. Therefore, antimicrobial coverage was changed today. The vancomycin was stopped and Nafcillin at 2 grams every 4 hours intravenously was initiated. Also, repeat blood cultures were ordered for today, as well as for tomorrow morning. The patient is now between 3 days from the onset of his symptoms. Should the repeat blood cultures ordered return negative, we recommend the addition of a second synergistic antibiotic in the form of Rifampin. Patient will need to be on six weeks receiving coterminous intravenous Nafcillin and oral Rifampin. Upon completion of this six week antibiotic regimen, and because it was the knee joint involved, patient will need to be on six months of oral antibiotics in the form of Rifampin plus a fish salter oral drug such as amoxicillin or Dicloxacillin. It is also very important that we continue to monitor Hossein for any neck pain in the setting of his previous cervical spine fusion with subhash placement. This is due to the risk of infection of the prosthetic subhash and further sequelae as a result. 2. Reportedly newly diagnosed systolic murmur. The admitting hospitalist service denoted a systolic murmur present on exam, which patient reports having no known history of. Upon our exam today, we appreciated a crescendo-decrescendo 2/6 systolic murmur consistent with possible stenosis of the aortic valve. There was an echocardiogram ordered by the hospitalist service and was reportedly performed yesterday. To this point, no documented impression has been logged into the electronic medical record. KURT
[2020-10-05 10:51] VITALS: BP 132/70
--- NOTE | 2020-10-05 11:37 | IPNPDOC ---
Text Note Date of Service The patient was seen on 10/04/20. NOTE The patient was seen around 1900 h on 10/04/20 to reassess the Right knee dres sing. The right knee dressing had been changed by Nursing during the day. It was clean without any signs of strike through. Patient continues on empiric antibiotics for staph infection. Hospitalist team coordinating antibiotic treatment. Will continue to follow. PT to mobilize. David Tillman MD VS,Lulú, I+O VS, Lulú I+O Laboratory Tests 10/05/20 06:27 Vital Signs Date Time Temp Pulse Resp B/P (MAP) Pulse Ox O2 Delivery O2 Flow Rate FiO2 10/05/20 10:51 98.3 72 14 132/70 (90) 95 Room Air 10/03/20 21:00 1.0 I&O- Last 24 Hours up to 6 AM 10/05/20 06:00 Intake Total 440 ml Output Total 650 ml Balance -210 ml DAVID TILLMAN MD Oct 05, 2020 11:37
--- NOTE | 2020-10-05 12:03 | IPNPDOC ---
Text Note Date of Service The patient was seen on 10/05/20. NOTE POD 3 Right TKA I&D washout with liner change. Pt doing well. Was seen by Infectious Disease Team today. MSSA infection identified and Antibiotics adjusted appropriately, as per ID note. Spoke to pt about higher likelihood of successful treatment given MSSA infection, with antibiotic therapy combined with washout procedure. Dressing intact. 2 areas of staining distally. Dressing will need to be changed prior to transfer or discharge. Will continue to follow. PT to mobilize. David Tillman MD VS,Lulú, I+O VS, Lulú I+O Laboratory Tests 10/05/20 06:27 Vital Signs Date Time Temp Pulse Resp B/P (MAP) Pulse Ox O2 Delivery O2 Flow Rate FiO2 10/05/20 10:51 98.3 72 14 132/70 (90) 95 Room Air 10/03/20 21:00 1.0 I&O- Last 24 Hours up to 6 AM 10/05/20 06:00 Intake Total 440 ml Output Total 650 ml Balance -210 ml DAVID TILLMAN MD Oct 05, 2020 12:03
[2020-10-05] MEDS: oxyCODONE 5MG TAB PO PRN ×2 (12:26→21:01)
[2020-10-05 14:00] VITALS: BP 139/64
--- NOTE | 2020-10-05 17:19 | IPNPDOC ---
Date Seen The patient was seen on 10/05/20. Progress Note SUBJECTIVE: Awaiting repeat BCx. Some SOB later in day, ordering CXR and BNP. Discussed TTE with Dr. Somers who states AV abnormal and recommending JOY. Cr further improved. Denies chest pain, fevers, chills, shortness of breath. OBJECTIVE: PHYSICAL EXAMINATION: VS: Please see below CONSTITUTIONAL: No acute distress, resting comfortably, AAO x 3 EYES: PERRLA, EOM intact HENT, MOUTH: Normocephalic, atraumatic, moist mucous membranes NECK: SUPPLE, no JVD, no lymphadenopathy, no carotid bruit CV: Murmur 2/6 systolic, Regular rate and rhythm, S1S2 normal, no rubs/gallops RESPIRATORY: Clear to auscultation bilaterally, no rales/rhonchi/wheezes GI: BS positive in 4 quadrants, soft, nontender, nondistended, no rebound or guarding, no organomegaly : Deferred MUSCULOSKELETAL: Normal ROM. No cyanosis, clubbing, swelling, joint deformity, extremity edema. PUlses present in all extremities INTEGUMENTARY:Right knee incision appears clean, SIDRA drain no longer present. Decreased erythema right anterior harmon, right knee. Tenderness to area of right lateral, posterior and above knee slightly improved. +1 pitting edema RLE NEUROLOGIC: Cranial Nerves II-XII are intact, no focal deficits PSYCHIATRIC: Mood and affect are normal LABORATORY DATA: Please see below MICROBIOLOGY: Repeat BCx x 2 sets: 1 set NG to date, other set pending BCx x 2 sets: MSSA Right knee fluid cx from knee aspiration: MSSA Right knee tissue cx: MSSA IMAGING: CXR: Chronic stable changes. No focal consolidation or effusion. XR right knee : chronic changes as noted above- Relatively normal appearance to the orthopedic hardware but cannot exclude joint effusion Vascular US right LE: No DVT ASSESSMENT: 75-year-old male with PMH of CAD, hypertension, hyperlipidemia, c hronic kidney disease stage III, chronic back pain, iron deficiency anemia admitted under hospitalist service for right knee pain rule out septic joint, right lower extremity cellulitis. PLAN: Shortness of breath r/o infectious source vs. CHF? No prior pulmonary history -BNP was elevated on admission at 1788, f/u new BNP to see if worsened -Improving lower ext edema, no longer on fluids -F/u CXR, echocardiogram official report -Currently on 4 L NC, will wean down O2 requirements to keep above 92% -Giving 1x dose lasix now -If BNP elevated more, can give more lasix if needed, may need daily dosing . C/w BB, CCB. 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 R/o endocarditis at this time either -Per Dr. Somers who did TTE, AV abnormal cannot r/o Endocarditis. JOY ordered. -F/u repeat BCx -Nafcillin IV, rifampin will need to be added at some point. -Discussed penitentiary Abx, will need PICC placed once new BCx neg Right LE cellulitis of anterior harmon, knee- intermittent for years per patient -warmth, edema in RLE much improved since admission -F/u daily labs, c/w abx above Mechanical fall -PT: Pt will benefit from skilled PT intervention during acute hospitalization to improve overall (I) with functional mobility. -C/w PT/OT HTN -BP controlled -C/w home medications. CKD Stage III -Cr 1.9 today -Baseline Cr believed to be 1.8, confirmed with nephrology office -Encouraging fluids -F/u daily labs, avoid other nephrotoxic medications HLD -C/w home med Chronic back pain -C/w gabapentin, percocet above Iron deficiency anemia -Stable Thrombocytopenia -PLTs 107 -Monitor daily, if worsens, stop ASA DVT px -ASA bid per ortho DISPOSITION: Admitted under hospitalist service with orthopedic surgery consulted. ID following. Plan is discharge home when medically improved. VS, I&O, 24H, Fishbone Vital Signs/I&O Vital Signs Date Time Temp Pulse Resp B/P (MAP) Pulse Ox O2 Delivery O2 Flow Rate FiO2 10/05/20 14:00 98.4 77 19 139/64 (89) 97 Nasal Cannula 4.0 I&O- Last 24 Hours up to 6 AM 10/05/20 06:00 Intake Total 440 ml Output Total 650 ml Balance -210 ml Laboratory Data 24H LABS Laboratory Tests 2 10/05/20 06:27: Nucleated Red Blood Cells % (auto) 0.0, Erythrocyte Sedimentation Rate 126H, Anion Gap 4L, Glomerular Filtration Rate 37.2L, Calcium Level 7.7L, Total Bilirubin 0.9#, Aspartate Amino Transf (AST/SGOT) 52H, Alanine Aminotransferase (ALT/SGPT) 24, Alkaline Phosphatase 69, C-Reactive Protein, Quantitative 17.40H, Total Protein 5.6L, Albumin 2.2L, Albumin/Globulin Ratio 0.6 CBC/BMP Laboratory Tests 10/05/20 06:27 Microbiology Microbiology 10/05/20 Blood Culture, Received Pending 10/04/20 Blood Culture - Preliminary, Resulted No growth after 24 hours . All specim... 10/02/20 Gram Stain - Final, Resulted 10/02/20 Surgical Biopsy Culture - Preliminary, Resulted Staphylococcus Aureus 10/02/20 Gram Stain - Final, Complete 10/02/20 Surgical Biopsy Culture - Final, Complete Staphylococcus Aureus 10/02/20 Gram Stain - Final, Complete 10/02/20 Surgical Biopsy Culture - Final, Complete Staphylococcus Aureus 10/02/20 Gram Stain - Final, Complete 10/02/20 Surgical Biopsy Culture - Final, Complete Staphylococcus Aureus 10/02/20 Gram Stain - Final, Complete 10/02/20 Surgical Biopsy Culture - Final, Complete Staphylococcus Aureus 10/02/20 Gram Stain - Final, Complete 10/02/20 Surgical Biopsy Culture - Final, Complete Staphylococcus Aureus 10/02/20 Gram Stain - Final, Complete 10/02/20 Body Fluid Culture - Final, Complete Staphylococcus Aureus 10/02/20 Gram Stain - Final, Complete 10/02/20 Body Fluid Culture - Final, Complete Staphylococcus Aureus 10/02/20 Blood Culture - Final, Complete Staphylococcus Aureus 10/02/20 Blood Culture - Final, Complete Staphylococcus Aureus Current Medications Current Medications Medications (Trade) Dose Ordered Sig/Samanta Route PRN Reason Start Time Stop Time Status Last Admin Dose Admin Acetaminophen (Tylenol Tab) 650 mg Q4HP PRN PO MILD PAIN OR FEVER 10/02/20 22:30 10/03/20 19:20 Acetaminophen (Tylenol Tab) 650 mg Q6HP PRN PO PAIN OR FEVER 10/02/20 13:40 10/02/20 22:23 DC Amlodipine Besylate (Norvasc) 2.5 mg DAILY PO 10/02/20 09:00 10/05/20 08:43 Aspirin (Ecotrin) 81 mg BID PO 10/02/20 21:00 10/05/20 08:43 Atenolol (Tenormin) 25 mg DAILY PO 10/02/20 09:00 10/05/20 08:44 Benzocaine/ Butamben/ Tetracaine HCl (Cetacaine 2-2-14 %) 1 spray STAT STAT TOP 10/02/20 12:35 10/02/20 12:37 DC Cefazolin Sodium/ Dextrose 2 gm/IV Miscellaneous Supplies 50 ml @ 75 mls/hr Q8H IV 10/03/20 00:00 10/03/20 16:43 DC 10/03/20 09:26 Ceftriaxone Sodium 2 gm/ Dextrose 50 ml @ 100 mls/hr Q24H IV 10/02/20 15:00 10/02/20 22:23 DC 10/02/20 16:49 Fentanyl Citrate (Sublimaze) 25 mcg Q5MP PRN IV PAIN LEVEL 5-10 10/02/20 21:25 10/02/20 22:28 DC Gabapentin (Neurontin) 800 mg BID PO 10/02/20 09:00 10/05/20 08:44 Heparin Sodium (Porcine) (Heparin) 5,000 units Q8H SC 10/02/20 09:00 10/02/20 15:02 DC Home Med (Med Rec Complete!) ASDIRECTED XX 10/02/20 13:25 10/02/20 13:36 DC Hydralazine HCl (Apresoline) 10 mg BID PO 10/02/20 09:00 10/05/20 08:43 Hydromorphone HCl (Dilaudid) 0.2 mg Q5MP PRN IV PAIN LEVEL 4-7 10/02/20 21:25 10/02/20 22:28 DC Lactated Ringer's 1,000 ml @ 100 mls/hr Q10H IV 10/02/20 21:25 10/02/20 22:28 DC Lactated Ringer's 1,000 ml @ 100 mls/hr Q10H IV 10/02/20 22:25 10/03/20 16:30 DC 10/02/20 23:11 Lactobacillus Acidophilus (Bacid) 1 ea BIDWM PO 10/02/20 18:00 10/05/20 08:43 Nafcillin Sodium 2 gm/Dextrose 50 ml @ 50 mls/hr Q4H IV 10/04/20 12:00 10/05/20 16:39 Ondansetron HCl (ZOFRAN INJection) 4 mg Q4HP PRN IV NAUSEA OR VOMITING 10/02/20 21:25 10/02/20 22:23 DC Ondansetron HCl (ZOFRAN INJection) 4 mg Q6HP PRN IV NAUSEA 10/02/20 22:30 Oxycodone HCl (Roxicodone, Oxyir) 5 mg ASDIRECTED PRN PO PAIN LEVEL 1-4 10/02/20 21:25 10/02/20 22:28 DC Oxycodone HCl (Roxicodone, Oxyir) 5 mg Q6HP PRN PO MODERATE PAIN (PS 5-7) 10/02/20 22:30 10/05/20 12:26 Oxycodone HCl (Roxicodone, Oxyir) 10 mg Q6HP PRN PO SEVERE PAIN (PS 8-10) 10/02/20 22:30 10/04/20 18:32 Oxycodone/ Acetaminophen (Percocet 5mg/ 325mg Tablet) 1 tab Q6HP PRN PO MODERATE PAIN (PS 5-7) 10/02/20 13:40 10/02/20 22:23 DC 10/02/20 16:53 Oxycodone/ Acetaminophen (Percocet 5mg/ 325mg Tablet) 2 tab Q6HP PRN PO SEVERE PAIN (PS 8-10) 10/02/20 13:40 10/02/20 22:23 DC Simvastatin (Zocor) 20 mg QHS PO 10/02/20 21:00 10/04/20 21:17 Sodium Chloride 1,000 ml @ 100 mls/hr Q10H IV 10/02/20 14:20 10/02/20 22:23 DC 10/02/20 16:49 Torsemide (Demadex) 10 mg DAILY PO 10/03/20 09:00 Cancel Torsemide (Demadex) 10 mg STAT STAT PO 10/02/20 11:46 10/02/20 11:49 DC 10/02/20 11:51 Vancomycin HCl 1000 mg/IV Miscellaneous Supplies 1 each/ Sodium Chloride 270 ml @ 270 mls/hr Q24H IV 10/03/20 13:00 10/04/20 10:28 DC 10/03/20 13:21 Allergies Coded Allergies: No Known Allergies (Verified , 08/10/19) Joanne Boone MD Oct 05, 2020 17:19
--- NOTE | 2020-10-05 17:56 | REP ---
INDICATION: SOB, incr O2 demand COMPARISON: 10/02/2020 TECHNIQUE: PA and lateral. FINDINGS: The mediastinum and cardiac silhouette are stable. The lung anderson demonstrate chronic appearing changes. Subtle atelectasis cannot be excluded. No discrete focal consolidation, effusion, or pneumothorax. Skeletal structures demonstrate stable degenerative changes. IMPRESSION: Chronic appearing changes. Minimal atelectasis cannot be excluded. <Electronically signed by Rob Funes > 10/05/20 2305
[2020-10-05] MEDS ORDERED: FUROSEMIDE 40MG/4ML VIAL (J1940) IV ONE (18:00)
[2020-10-05] MEDS: SIMVASTATIN 20 MG TAB PO SCH (21:02)
[2020-10-05 22:00] VITALS: BP 145/66
[2020-10-06] MEDS: NAFCILLIN SOD 2 GM in D5W MINI-BAG PLUS 50 ML IV SCH ×7 (00:48→23:23)
[2020-10-06 06:00] VITALS: BP 109/58
[2020-10-06 06:40] LABS: HEMATOCRIT 27.8 % (42.0-52.0); MEAN CORPUSCULAR HEMOGLOBIN 32.6 pg (27.0-33.0); MEAN CORPUSCULAR HGB CONC 32.4 g/dl (32.0-36.5); MEAN CORPUSCULAR VOLUME 100.7 fl (80.0-96.0); PLATELET COUNT, AUTOMATED 126 10^3/uL (150-450); RED BLOOD COUNT 2.76 10^6/uL (4.30-6.10); WHITE BLOOD COUNT 4.6 10^3/uL (4.0-10.0)
[2020-10-06 07:03] LABS: ERYTHROCYTE SEDIMENTATION RATE 128 mm/hr (0-20)
[2020-10-06 07:16] LABS: ALBUMIN 2.2 GM/DL (3.2-5.2); BILIRUBIN,TOTAL 1.3 MG/DL (0.2-1.0); C REACTIVE PROTEIN QUANTITATIV 17.5 MG/DL (0.00-0.30); POTASSIUM SERUM 3.5 MEQ/L (3.5-5.1); TOTAL PROTEIN 5.9 GM/DL (6.4-8.2)
[2020-10-06] MEDS: LACTOBACILLUS ACIDOPHILUS CAP (BACID) PO SCH ×2 (09:03→16:55)
[2020-10-06] MEDS: **hydrALAZINE** 10 MG TAB PO SCH ×2 (09:04→20:07)
[2020-10-06] MEDS: ASPIRIN 81MG ENTERIC TABLET PO SCH ×2 (09:05→20:07)
[2020-10-06] MEDS: atenoloL 25 MG TAB PO SCH (09:05)
[2020-10-06] MEDS: GABAPENTIN 400MG CAP PO SCH ×2 (09:06→20:07)
[2020-10-06] MEDS ORDERED: fentaNYL 100 MCG/2 ML INJECTION (J3010) As Ordered ONE (10:34)
[2020-10-06] MEDS ORDERED: LIDOCAINE 2% 100MG/5ML SDV (FOR ANES.) As Ordered ONE (10:34)
[2020-10-06] MEDS ORDERED: propofoL 200 MG/20 ML VIAL As Ordered ONE (10:34)
[2020-10-06] MEDS ORDERED: GLYCOPYRROLATE INJ 0.2 MG/ML 2 ML VIAL As Ordered ONE (10:34)
[2020-10-06] MEDS ORDERED: LIDOCAINE VISCOUS 2% SOLN 15ML UDC As Ordered ONE (10:48)
[2020-10-06] MEDS ORDERED: CETACAINE SPRAY 5GM As Ordered ONE (10:48)
[2020-10-06] MEDS ORDERED: MIDAZOLAM INJ 2MG/2ML VIAL (J2250 PER 1MG) As Ordered ONE (11:00)
[2020-10-06] MEDS ORDERED: ONDANSETRON 4MG/2ML VIAL IV PRN (11:55)
[2020-10-06] MEDS ORDERED: LR 1,000 ML IV SCH (11:55)
[2020-10-06] MEDS ORDERED: fentaNYL 100 MCG/2 ML INJECTION (J3010) IV PRN (11:55)
[2020-10-06 12:13] VITALS: BP 114/58
[2020-10-06 14:00] VITALS: BP 113/57
--- NOTE | 2020-10-06 15:01 | IPNPDOC ---
Date Seen The patient was seen on 10/06/20. Progress Note SUBJECTIVE: Repeat BCx x 2 sets NG to date. Discussed JOY with Dr. Somers who confirmed small vegetation on AV present and ASD not currently known to patient. Will update ID in AM. Given 40 IV lasix on 10/05 and diuresed 3.3 L/24hours, breathing improved. Denies chest pain, fevers, chills, shortness of breath. OBJECTIVE: PHYSICAL EXAMINATION: VS: Please see below CONSTITUTIONAL: No acute distress, resting comfortably, AAO x 3 EYES: PERRLA, EOM intact HENT, MOUTH: Normocephalic, atraumatic, moist mucous membranes NECK: SUPPLE, no JVD, no lymphadenopathy, no carotid bruit CV: Murmur 2/6 systolic, Regular rate and rhythm, S1S2 normal, no rubs/gallops RESPIRATORY: Clear to auscultation bilaterally, no rales/rhonchi/wheezes GI: BS positive in 4 quadrants, soft, nontender, nondistended, no rebound or guarding, no organomegaly : Deferred MUSCULOSKELETAL: Normal ROM. No cyanosis, clubbing, swelling, joint deformity. Improving RLE edema. Pulses present in all extremities INTEGUMENTARY:Right knee incision appears clean, SIDRA drain no longer present. Decreased erythema right anterior harmon, right knee. Tenderness to area of right lateral, posterior and above knee slightly improved. NEUROLOGIC: Cranial Nerves II-XII are intact, no focal deficits PSYCHIATRIC: Mood and affect are normal LABORATORY DATA: Please see below MICROBIOLOGY: Repeat BCx x 2 sets: NG BCx x 2 sets: MSSA Right knee fluid cx from knee aspiration: MSSA Right knee tissue cx: MSSA IMAGING: CXR 10/05/20: Chronic appearing changes. Minimal atelectasis cannot be excluded. CXR: Chronic stable changes. No focal consolidation or effusion. XR right knee : chronic changes as noted above- Relatively normal appearance to the orthopedic hardware but cannot exclude joint effusion Vascular US right LE: No DVT ASSESSMENT: 75-year-old male with PMH of CAD, hypertension, hyperlipidemia, chronic kidney disease stage III, chronic back pain, iron deficiency anemia admitted under hospitalist service for right knee pain rule out septic joint, right lower extremity cellulitis. PLAN: Shortness of breath possibly 2/2 to CHF, atelectasis -98% on 1 L NC, weaning down today -BNP found to be increased to 1788-->2594 on 10/05/20, given 40 mg IV lasix, diuresed 3.3 L/24H with decreased lower ext swelling, improved breathing -CXR above -F/u JOY -Holding off on starting on daily lasix with underlying CKD, can dose intermittently PRN -C/w BB, CCB. Starting incentive spirometer Q2H while awake. 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 Rifampin will need to be added at some point. -F/u orthopedic surgery recommendations, ID consulted Right LE cellulitis of anterior harmon, knee- intermittent for years per patient- resolved -warmth, edema in RLE resolved -F/u daily labs, c/w abx above Mechanical fall -PT: Pt will benefit from skilled PT intervention during acute hospitalization to improve overall (I) with functional mobility. -C/w PT/OT Atrial septal defect, new finding on JOY -Will need f/u with cardiology after discharge. -Discussed with Dr. Somers today, f/u official JOY report HTN -BP controlled -C/w home medications. CKD Stage III -Cr 2 today -Baseline Cr believed to be 1.8, confirmed with nephrology office -Encouraging fluids -Watch Cr as he received 40 IV lasix on 10/05/20 -F/u daily labs, avoid other nephrotoxic medications HLD -C/w home med Chronic back pain -C/w gabapentin, percocet above Iron deficiency anemia -Stable Thrombocytopenia -PLTs 126 -Monitor daily, if worsens, stop ASA DVT px -ASA bid per ortho DISPOSITION: Admitted under hospitalist service with orthopedic surgery , ID consulted. Plan is discharge home when medically improved. VS, I&O, 24H, Fishbone Vital Signs/I&O Vital Signs Date Time Temp Pulse Resp B/P (MAP) Pulse Ox O2 Delivery O2 Flow Rate FiO2 10/06/20 14:00 97.3 66 18 113/57 (75) 92 Nasal Cannula 2.0 I&O- Last 24 Hours up to 6 AM 10/06/20 06:00 Intake Total 1050 ml Output Total 5000 ml Balance -3950 ml Laboratory Data 24H LABS Laboratory Tests 2 10/05/20 18:29: UU-Gdo-L-Type Natriuretic Peptide 2594H 10/06/20 06:25: Nucleated Red Blood Cells % (auto) 0.0, Erythrocyte Sedimentation Rate 128H, Anion Gap 7L, Glomerular Filtration Rate 35.0L, Calcium Level 8.0L, Total Bilirubin 1.3H, Aspartate Amino Transf (AST/SGOT) 45H, Alanine Aminotransferase (ALT/SGPT) 24, Alkaline Phosphatase 78, C-Reactive Protein, Quantitative 17.50H, Total Protein 5.9L, Albumin 2.2L, Albumin/Globulin Ratio 0.6 CBC/BMP Laboratory Tests 10/06/20 06:25 Microbiology Microbiology 10/05/20 Blood Culture - Preliminary, Resulted No growth after 24 hours . All specim... 10/04/20 Blood Culture - Preliminary, Resulted No Growth after 48 hours. All Specime... 10/02/20 Gram Stain - Final, Complete 10/02/20 Surgical Biopsy Culture - Final, Complete Staphylococcus Aureus 10/02/20 Gram Stain - Final, Complete 10/02/20 Surgical Biopsy Culture - Final, Complete Staphylococcus Aureus 10/02/20 Gram Stain - Final, Complete 10/02/20 Surgical Biopsy Culture - Final, Complete Staphylococcus Aureus 10/02/20 Gram Stain - Final, Complete 10/02/20 Surgical Biopsy Culture - Final, Complete Staphylococcus Aureus 10/02/20 Gram Stain - Final, Complete 10/02/20 Surgical Biopsy Culture - Final, Complete Staphylococcus Aureus 10/02/20 Gram Stain - Final, Complete 10/02/20 Surgical Biopsy Culture - Final, Complete Staphylococcus Aureus 10/02/20 Gram Stain - Final, Complete 10/02/20 Body Fluid Culture - Final, Complete Staphylococcus Aureus 10/02/20 Gram Stain - Final, Complete 10/02/20 Body Fluid Culture - Final, Complete Staphylococcus Aureus 10/02/20 Blood Culture - Final, Complete Staphylococcus Aureus 10/02/20 Blood Culture - Final, Complete Staphylococcus Aureus Current Medications Current Medications Medications (Trade) Dose Ordered Sig/Samanta Route PRN Reason Start Time Stop Time Status Last Admin Dose Admin Acetaminophen (Tylenol Tab) 650 mg Q4HP PRN PO MILD PAIN OR FEVER 10/02/20 22:30 10/03/20 19:20 Acetaminophen (Tylenol Tab) 650 mg Q6HP PRN PO PAIN OR FEVER 10/02/20 13:40 10/02/20 22:23 DC Amlodipine Besylate (Norvasc) 2.5 mg DAILY PO 10/02/20 09:00 10/06/20 09:04 Aspirin (Ecotrin) 81 mg BID PO 10/02/20 21:00 10/06/20 09:05 Atenolol (Tenormin) 25 mg DAILY PO 10/02/20 09:00 10/06/20 09:05 Benzocaine/ Butamben/ Tetracaine HCl (Cetacaine 2-2-14 %) 1 spray STAT STAT TOP 10/02/20 12:35 10/02/20 12:37 DC Cefazolin Sodium/ Dextrose 2 gm/IV Miscellaneous Supplies 50 ml @ 75 mls/hr Q8H IV 10/03/20 00:00 10/03/20 16:43 DC 10/03/20 09:26 Ceftriaxone Sodium 2 gm/ Dextrose 50 ml @ 100 mls/hr Q24H IV 10/02/20 15:00 10/02/20 22:23 DC 10/02/20 16:49 Fentanyl Citrate (Sublimaze) 25 mcg Q5MP PRN IV PAIN LEVEL 5-10 10/02/20 21:25 10/02/20 22:28 DC Fentanyl Citrate (Sublimaze) 25 mcg Q5MP PRN IV PAIN LEVEL 5-10 10/06/20 11:55 10/06/20 12:55 DC Furosemide (Lasix) 10 mg DAILY PO 10/07/20 09:00 Gabapentin (Neurontin) 800 mg BID PO 10/02/20 09:00 10/06/20 09:06 Heparin Sodium (Porcine) (Heparin) 5,000 units Q8H SC 10/02/20 09:00 10/02/20 15:02 DC Home Med (Med Rec Complete!) ASDIRECTED XX 10/02/20 13:25 10/02/20 13:36 DC Hydralazine HCl (Apresoline) 10 mg BID PO 10/02/20 09:00 10/06/20 09:04 Hydromorphone HCl (Dilaudid) 0.2 mg Q5MP PRN IV PAIN LEVEL 4-7 10/02/20 21:25 10/02/20 22:28 DC Lactated Ringer's 1,000 ml @ 50 mls/hr Q20H IV 10/06/20 11:55 10/06/20 12:55 DC Lactated Ringer's 1,000 ml @ 100 mls/hr Q10H IV 10/02/20 21:25 10/02/20 22:28 DC Lactated Ringer's 1,000 ml @ 100 mls/hr Q10H IV 10/02/20 22:25 10/03/20 16:30 DC 10/02/20 23:11 Lactobacillus Acidophilus (Bacid) 1 ea BIDWM PO 10/02/20 18:00 10/06/20 09:03 Nafcillin Sodium 2 gm/Dextrose 50 ml @ 50 mls/hr Q4H IV 10/04/20 12:00 10/06/20 13:19 Ondansetron HCl (ZOFRAN INJection) 4 mg Q4HP PRN IV NAUSEA OR VOMITING 10/02/20 21:25 10/02/20 22:23 DC Ondansetron HCl (ZOFRAN INJection) 4 mg Q4HP PRN IV NAUSEA OR VOMITING 10/06/20 11:55 10/06/20 12:55 DC Ondansetron HCl (ZOFRAN INJection) 4 mg Q6HP PRN IV NAUSEA 10/02/20 22:30 Oxycodone HCl (Roxicodone, Oxyir) 5 mg ASDIRECTED PRN PO PAIN LEVEL 1-4 10/02/20 21:25 10/02/20 22:28 DC Oxycodone HCl (Roxicodone, Oxyir) 5 mg Q6HP PRN PO MODERATE PAIN (PS 5-7) 10/02/20 22:30 10/05/20 21:01 Oxycodone HCl (Roxicodone, Oxyir) 10 mg Q6HP PRN PO SEVERE PAIN (PS 8-10) 10/02/20 22:30 10/04/20 18:32 Oxycodone/ Acetaminophen (Percocet 5mg/ 325mg Tablet) 1 tab Q6HP PRN PO MODERATE PAIN (PS 5-7) 10/02/20 13:40 10/02/20 22:23 DC 10/02/20 16:53 Oxycodone/ Acetaminophen (Percocet 5mg/ 325mg Tablet) 2 tab Q6HP PRN PO SEVERE PAIN (PS 8-10) 10/02/20 13:40 10/02/20 22:23 DC Simvastatin (Zocor) 20 mg QHS PO 10/02/20 21:00 10/05/20 21:02 Sodium Chloride 1,000 ml @ 100 mls/hr Q10H IV 10/02/20 14:20 10/02/20 22:23 DC 10/02/20 16:49 Torsemide (Demadex) 10 mg DAILY PO 10/03/20 09:00 Cancel Torsemide (Demadex) 10 mg STAT STAT PO 10/02/20 11:46 10/02/20 11:49 DC 10/02/20 11:51 Vancomycin HCl 1000 mg/IV Miscellaneous Supplies 1 each/ Sodium Chloride 270 ml @ 270 mls/hr Q24H IV 10/03/20 13:00 10/04/20 10:28 DC 10/03/20 13:21 Allergies Coded Allergies: No Known Allergies (Verified , 08/10/19) Joanne Boone MD Oct 06, 2020 15:01
--- NOTE | 2020-10-06 16:17 | T-ECHO ---
TRANSESOPHAGEAL ECHO DATE: 10/06/2020 Age: 75 Gender: Male Height: 160 cm Weight: 56 kg REFERRING PHYSICIAN: Joanne Boone M.D. INDICATIONS: Endocarditis. BRIEF HISTORY: Mr. Nathan is a 75-year-old man who was admitted with infected right knee. He was growing Staphylococcus aureus from the knee aspirate, but also from multiple blood cultures. Transthoracic echocardiogram raised the suspicion for vegetation on the aortic valve and consequently a transesophageal echocardiogram was requested. I met with the patient the day before the procedure and then again on the morning of the procedure. I explained the rationale and potential complications. He signed the appropriate consent. DESCRIPTION OF PROCEDURE: The procedure was performed in the operating room. The patient presented in a fasting state. After appropriate timeout was taken, all monitors were applied. His posterior pharynx was then anesthetized using Viscous Lidocaine and Cetacaine spray. The patient was then positioned in the left lateral decubitus position with bite block in place. Subsequently, anesthesiology administered sedation. After appropriate level of sedation was accomplished, the probe was introduced into the esophagus and later the stomach without difficulty. After appropriate images were obtained, it was withdrawn. There were no immediate complications and the patient tolerated the procedure well. FINDINGS: Both ventricles appeared to have normal contractility. There is tricuspid aortic valve. It is mildly sclerotic. There is a small thread-like echodensity attached to the edge of the aortic cusps consistent with small vegetation. By color Doppler imaging, there is no aortic insufficiency. No stenosis based on transgastric views. Mitral valve appears normal. There is only trace insufficiency by color Doppler imaging. Same applies for tricuspid and pulmonic valves. Left atrial appendage is free of thrombus. There is normal flow in the left-sided pulmonary vein. There is an incidental finding of atrial septal defect with qtok-se-ztyal shunt easily visible. There is prominent atherosclerosis of the thoracic aorta, but no ulcerations or visible thrombi. CONCLUSIONS: 1. Normal LV and RV systolic function. 2. Small vegetation on the aortic valve without significant insufficiency or stenosis. 3. Mild mitral, tricuspid, and pulmonic insufficiency. 4. Secundum ASD with [id number]-vl-[id number] shunt. 5. Atherosclerosis of the thoracic aorta. COMMENTS: Results of the study were communicated to the patient, his , and Dr. Boone. KURT
[2020-10-06] MEDS: SIMVASTATIN 20 MG TAB PO SCH (20:07)
[2020-10-06 22:00] VITALS: BP 130/70
[2020-10-07] MEDS: NAFCILLIN SOD 2 GM in D5W MINI-BAG PLUS 50 ML IV SCH ×6 (04:05→23:51)
[2020-10-07 05:46] LABS: HEMATOCRIT 27.9 % (42.0-52.0); HEMOGLOBIN 8.8 g/dl (13.5-17.5); MEAN CORPUSCULAR HEMOGLOBIN 32.1 pg (27.0-33.0); MEAN CORPUSCULAR HGB CONC 31.5 g/dl (32.0-36.5); MEAN CORPUSCULAR VOLUME 101.8 fl (80.0-96.0); PLATELET COUNT, AUTOMATED 161 10^3/uL (150-450); RED BLOOD COUNT 2.74 10^6/uL (4.30-6.10); WHITE BLOOD COUNT 4.4 10^3/uL (4.0-10.0)
[2020-10-07 06:00] VITALS: BP 124/62
[2020-10-07 06:10] LABS: CALCIUM LEVEL 7.9 MG/DL (8.8-10.2); CREATININE FOR GFR 1.97 MG/DL (0.70-1.30); GLOMERULAR FILTRATION RATE 35.7 (>42); POTASSIUM SERUM 3.2 MEQ/L (3.5-5.1)
[2020-10-07] MEDS ORDERED: FUROSEMIDE 10MG PER 1/2 TABLET PO SCH (09:00)
[2020-10-07] MEDS ORDERED: POTASSIUM CHLORIDE 10 MEQ SR TABLET PO ONE ×2 (09:00→12:00)
[2020-10-07] MEDS: **hydrALAZINE** 10 MG TAB PO SCH ×2 (09:02→20:12)
[2020-10-07] MEDS: LACTOBACILLUS ACIDOPHILUS CAP (BACID) PO SCH ×2 (09:02→18:24)
[2020-10-07] MEDS: atenoloL 25 MG TAB PO SCH (09:02)
[2020-10-07] MEDS: ASPIRIN 81MG ENTERIC TABLET PO SCH ×2 (09:02→20:10)
[2020-10-07] MEDS: GABAPENTIN 400MG CAP PO SCH ×2 (09:03→20:12)
[2020-10-07] MEDS ORDERED: LIDOCAINE 1% MDV 20ML VIAL As Ordered ONE (09:35)
[2020-10-07] MEDS: oxyCODONE 5MG TAB PO PRN (09:47)
[2020-10-07 10:11] LABS: INR 1.2; PARTIAL THROMBOPLASTIN TIME 38.6 SECONDS (24.2-38.5); PROTHROMBIN TIME 15.5 SECONDS (12.5-14.3)
--- NOTE | 2020-10-07 10:14 | IPN ---
PROGRESS NOTE DATE: 10/05/2020 I was asked by Dr. Boone to read a transesophageal echocardiogram on Mr. Nathan. It revealed quite fair or poor quality study but there was a suspicion for vegetation on the aortic valve. Consequently, we agreed that we need to proceed with transesophageal echocardiogram for definitive assessment. SUBJECTIVE: Briefly, the patient is a 75-year-old man who presented to this facility on October 02 after approximately two day history of severe right knee pain and was found to have infected prosthetic joint. He grew Staph aureus from blood but also from the joint culture. He has been receiving antibiotics and his condition is slowly improving. On interview, the patient tells me that he really did not get sick until September 30. He apparently suddenly woke up and had severe pain in the knee. Prior to falling asleep, he did not appreciate any problems. I talked to the patient about the potential diagnosis. I talked to him about transesophageal echocardiogram. We explained the rationale for the procedure, its potential complications that include the risk of perforation of GI tract and also risk of aspiration pneumonia and I talked to him about alternative which would be persistent uncertainty about the diagnosis. He reports that he had prior EGD that was uneventful and apparently no pathology was found. He is open to the proceeding with the procedure. PHYSICAL EXAMINATION: GENERAL: I examined the patient. He is alert and oriented and appropriate. VITAL SIGNS: Reveal a blood pressure 132/70, heart rate has been in the 70s. He is currently afebrile, saturation 95% on room air. NECK: His JVP is not high. l LUNGS: Clear, good air movement. HEART: Reveals regular rhythm. There is a murmur best heard just left from the sternum radiating towards the base of the heart about 2, possibly 3/6 intensity that is systolic in nature. I do not appreciate any distinct diastolic murmur. EXTREMITIES: I could not find any evidence for peripheral emboli on his toes or fingers. LABORATORIES: Blood cultures and fluid cultures are positive for Staph aureus. Urine was 1+ positive for blood. Basic metabolic panel: Sodium 131, potassium 3.7, BUN 31, creatinine 1.9, glucose 112. CBC: WBC count of 4.0, on admission was 10.1. Hemoglobin 8.5, hematocrit 26, platelet count 107,000. ESR has been persistently elevated and climbing today, 126. ASSESSMENT AND PLAN: Mr. Nathan is a 75-year-old man who presented with Staph aureus bacteremia and evidence for infected right prosthetic knee joint. I interpreted his echocardiogram and there is suspicion for vegetation on the aortic valve. I explained the rationale for JOY and the patient signed appropriate consent. We tentatively plan to pursue the procedure tomorrow morning at 10 o'clock. I will keep him NPO after midnight. All his questions were answered.
--- NOTE | 2020-10-07 11:03 | ECHO ---
DATE OF PROCEDURE: 10/04/2020 Age: 75 Gender: Male Height: 163 cm Weight: 68 kg REFERRING PHYSICIAN: Joanne Boone M.D. INDICATION: Heart murmur, Staph bacteremia. MEASUREMENTS: IVS 1.1 cm LV 4.7 cm LVPW 1.0 cm LA 3.1 cm Aorta 3.3 cm IVC 1.8 cm DOPPLER MEASUREMENT Mitral E wave velocity 51 Mitral A 98 E prime septal 6.9 E prime lateral 8.2 FINDINGS: This study is of fair technical quality with challenging visualization. The patient is in sinus rhythm. Left ventricle is normal size and has normal LV systolic function, I estimate LVEF around 60% to 65%. Right ventricle also appears to have normal size and systolic function. Both atria appear grossly normal for patients age. The aortic valve was poorly visualized. It is sclerotic and probably tricuspid. There appears to be poorly seen echodensity in the aortic root area adjacent to the valve, which raises suspicion for vegetation. Unfortunately, the visualization was poor and I cannot be certain that this may not be just an artifact, but the suspicion for vegetation is high. Mitral valve exhibits mild degenerative abnormalities, but mobility of leaflets is preserved. The tricuspid valve appears normal. The pulmonic valve was not well seen. No pericardial effusion is noted. Inferior vena cava is of normal size indicative of likely normal central venous pressure. Aortic root is normal. Aortic arch and abdominal aorta were not well seen. Doppler interrogation of the aortic valve reveals no significant stenosis and trace insufficiency. There is a competent mitral valve. [id number] tricuspid insufficiency seen. Calculated pulmonary artery pressure is at minimum in the 50s corresponding to at least moderate pulmonary hypertension. Mild pulmonary insufficiency is also seen. Mitral inflow pattern and tissue Doppler imaging of the mitral annulus revealed grade 1 diastolic dysfunction. CONCLUSIONS: 1. Study is of fair technical quality with challenging visualization, patient is in sinus rhythm. 2. Normal LV size with normal LV systolic function and grade 1 diastolic dysfunction. 3. Sclerotic abnormalities of poorly visualized aortic valve and echodensities attached to the valve raising suspicion for vegetation. Poor visualization. 4. Jslz-ew-kubvgycv tricuspid insufficiency. 5. Likely normal central venous pressure, but at least moderate pulmonary hypertension. The results of this study were communicated to Dr. Boone. [facility] HOSPITALPradeep
--- NOTE | 2020-10-07 12:41 | IPNPDOC ---
Date Seen The patient was seen on 10/07/20. Progress Note SUBJECTIVE: PICC placed today, discussed case with both Dr. Hernández and Dr. Umana. To decide on o/p IV option today to start discussing discharge. Denies chest pain, fevers, chills, shortness of breath. OBJECTIVE: PHYSICAL EXAMINATION: VS: Please see below CONSTITUTIONAL: No acute distress, resting comfortably, AAO x 3 EYES: PERRLA, EOM intact HENT, MOUTH: Normocephalic, atraumatic, moist mucous membranes NECK: SUPPLE, no JVD, no lymphadenopathy, no carotid bruit CV: Murmur 2/6 systolic, Regular rate and rhythm, S1S2 normal, no rubs/gallops RESPIRATORY: Clear to auscultation bilaterally, no rales/rhonchi/wheezes GI: BS positive in 4 quadrants, soft, nontender, nondistended, no rebound or guarding, no organomegaly : Deferred MUSCULOSKELETAL: Normal ROM. No cyanosis, clubbing, swelling, joint deformity. Improving RLE edema. Pulses present in all extremities INTEGUMENTARY:Right knee incision appears clean. Decreased erythema right anterior harmon, right knee. Tenderness to area of right lateral, posterior and above knee slightly improved. NEUROLOGIC: Cranial Nerves II-XII are intact, no focal deficits PSYCHIATRIC: Mood and affect are normal LABORATORY DATA: Please see below MICROBIOLOGY: Repeat BCx x 2 sets: NG BCx x 2 sets: MSSA Right knee fluid cx from knee aspiration: MSSA Right knee tissue cx: MSSA IMAGING: JOY 10/06/20: 1. Normal LV and RV systolic function. 2. Small vegetation on the aortic valve without significant insufficiency or stenosis. 3. Mild mitral, tricuspid, and pulmonic insufficiency. 4. Secundum ASD with ncqk-sp-dsrja shunt. 5. Atherosclerosis of the thoracic aorta. TTE 10/03/20: -EF 60-65% 1. Study is of fair technical quality with challenging visualization, patient is in sinus rhythm. 2. Normal LV size with normal LV systolic function and grade 1 diastolic dysfunction. 3. Sclerotic abnormalities of poorly visualized aortic valve and echo densities attached to the valve raising suspicion for vegetation. Poor visualization. 4. Sdcn-pf-lvhauglt tricuspid insufficiency. 5. Likely normal central venous pressure, but at least moderate pulmonary hypertension. CXR 10/05/20: Chronic appearing changes. Minimal atelectasis cannot be excluded. CXR: Chronic stable changes. No focal consolidation or effusion. XR right knee : chronic changes as noted above- Relatively normal appearance to the orthopedic hardware but cannot exclude joint effusion Vascular US right LE: No DVT ASSESSMENT: 75-year-old male with PMH of CAD, hypertension, hyperlipidemia, chronic kidney disease stage III, chronic back pain, iron deficiency anemia admitted under hospitalist service for right knee pain rule out septic joint, right lower extremity cellulitis. PLAN: Shortness of breath possibly 2/2 to HFpEF, atelectasis -98% on RA, diuresed quite a bit on 10/05/20 -BNP 2594 on 10/05/20 -CXR above -Echocardiogram above -Holding off on starting daily lasix with underlying CKD, can dose intermitten tly PRN -C/w BB, CCB. Starting incentive spirometer Q2H while awake. 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 -Per ortho (Dr. Hernández), can follow up with him in 2 weeks, ID consulted and discussing treatment plan with IV abx Mechanical fall -PT: would benefit from continued rehab -Discussed rehab with patient and he was hoping he could go home rather than continue with inpatient rehab. -Will update team -C/w PT/OT Atrial septal defect, new finding on JOY -JOY above -Will need f/u with cardiology after discharge. HTN -BP controlled -C/w home medications. CKD Stage III -Cr 1.97 today -Baseline Cr 1.8, confirmed with nephrology office -F/u daily labs, avoid other nephrotoxic medications HLD -C/w home med Chronic back pain -C/w gabapentin, percocet above Iron deficiency anemia -Stable Thrombocytopenia -PLTs 161 -Monitor daily, if worsens, stop ASA DVT px -ASA bid per ortho Resolved issues: Right LE cellulitis of anterior harmon, knee DISPOSITION: Admitted under hospitalist service with orthopedic surgery , ID consulted. Plan is discharge home with services vs, rehab when medically improved. VS, I&O, 24H, Fishbone Vital Signs/I&O Vital Signs Date Time Temp Pulse Resp B/P (MAP) Pulse Ox O2 Delivery O2 Flow Rate FiO2 10/07/20 10:30 18 Room Air 10/07/20 09:02 71 132/69 10/07/20 06:00 97.9 98 10/06/20 14:00 2.0 I&O- Last 24 Hours up to 6 AM 10/07/20 06:00 Intake Total 2630 ml Output Total 1220 ml Balance 1410 ml Laboratory Data 24H LABS Laboratory Tests 2 10/07/20 05:18: Nucleated Red Blood Cells % (auto) 0.0, Anion Gap 6L, Glomerular Filtration Rate 35.7L, Calcium Level 7.9L 10/07/20 08:52: Prothrombin Time 15.5H, Prothromb Time International Ratio 1.20, Activated Partial Thromboplast Time 38.6H CBC/BMP Laboratory Tests 10/07/20 05:18 Microbiology Microbiology 10/05/20 Blood Culture - Preliminary, Resulted No Growth after 48 hours. All Specime... 10/04/20 Blood Culture - Preliminary, Resulted No Growth after 72 hours. All specime... 10/02/20 Gram Stain - Final, Complete 10/02/20 Surgical Biopsy Culture - Final, Complete Staphylococcus Aureus 10/02/20 Gram Stain - Final, Complete 10/02/20 Surgical Biopsy Culture - Final, Complete Staphylococcus Aureus 10/02/20 Gram Stain - Final, Complete 10/02/20 Surgical Biopsy Culture - Final, Complete Staphylococcus Aureus 10/02/20 Gram Stain - Final, Complete 10/02/20 Surgical Biopsy Culture - Final, Complete Staphylococcus Aureus 10/02/20 Gram Stain - Final, Complete 10/02/20 Surgical Biopsy Culture - Final, Complete Staphylococcus Aureus 10/02/20 Gram Stain - Final, Complete 10/02/20 Surgical Biopsy Culture - Final, Complete Staphylococcus Aureus 10/02/20 Gram Stain - Final, Complete 10/02/20 Body Fluid Culture - Final, Complete Staphylococcus Aureus 10/02/20 Gram Stain - Final, Complete 10/02/20 Body Fluid Culture - Final, Complete Staphylococcus Aureus 10/02/20 Blood Culture - Final, Complete Staphylococcus Aureus 10/02/20 Blood Culture - Final, Complete Staphylococcus Aureus Current Medications Current Medications Medications (Trade) Dose Ordered Sig/Samanta Route PRN Reason Start Time Stop Time Status Last Admin Dose Admin Acetaminophen (Tylenol Tab) 650 mg Q4HP PRN PO MILD PAIN OR FEVER 10/02/20 22:30 10/03/20 19:20 Acetaminophen (Tylenol Tab) 650 mg Q6HP PRN PO PAIN OR FEVER 10/02/20 13:40 10/02/20 22:23 DC Amlodipine Besylate (Norvasc) 2.5 mg DAILY PO 10/02/20 09:00 10/07/20 09:02 Aspirin (Ecotrin) 81 mg BID PO 10/02/20 21:00 10/07/20 09:02 Atenolol (Tenormin) 25 mg DAILY PO 10/02/20 09:00 10/07/20 09:02 Benzocaine/ Butamben/ Tetracaine HCl (Cetacaine 2-2-14 %) 1 spray STAT STAT TOP 10/02/20 12:35 10/02/20 12:37 DC Cefazolin Sodium/ Dextrose 2 gm/IV Miscellaneous Supplies 50 ml @ 75 mls/hr Q8H IV 10/03/20 00:00 10/03/20 16:43 DC 10/03/20 09:26 Ceftriaxone Sodium 2 gm/ Dextrose 50 ml @ 100 mls/hr Q24H IV 10/02/20 15:00 10/02/20 22:23 DC 10/02/20 16:49 Fentanyl Citrate (Sublimaze) 25 mcg Q5MP PRN IV PAIN LEVEL 5-10 10/02/20 21:25 10/02/20 22:28 DC Fentanyl Citrate (Sublimaze) 25 mcg Q5MP PRN IV PAIN LEVEL 5-10 10/06/20 11:55 10/06/20 12:55 DC Furosemide (Lasix) 10 mg DAILY PO 10/07/20 09:00 10/06/20 15:01 DC Gabapentin (Neurontin) 800 mg BID PO 10/02/20 09:00 10/07/20 09:03 Heparin Sodium (Heparin (Flush)) 200 units ASDIRECTED PRN IV SEE LABEL COMMENTS 10/07/20 11:05 Heparin Sodium (Heparin (Flush)) 200 units PICC IV 10/07/20 18:00 Heparin Sodium (Porcine) (Heparin) 5,000 units Q8H SC 10/02/20 09:00 10/02/20 15:02 DC Home Med (Med Rec Complete!) ASDIRECTED XX 10/02/20 13:25 10/02/20 13:36 DC Hydralazine HCl (Apresoline) 10 mg BID PO 10/02/20 09:00 10/07/20 09:02 Hydromorphone HCl (Dilaudid) 0.2 mg Q5MP PRN IV PAIN LEVEL 4-7 10/02/20 21:25 10/02/20 22:28 DC Lactated Ringer's 1,000 ml @ 50 mls/hr Q20H IV 10/06/20 11:55 10/06/20 12:55 DC Lactated Ringer's 1,000 ml @ 100 mls/hr Q10H IV 10/02/20 21:25 10/02/20 22:28 DC Lactated Ringer's 1,000 ml @ 100 mls/hr Q10H IV 10/02/20 22:25 10/03/20 16:30 DC 10/02/20 23:11 Lactobacillus Acidophilus (Bacid) 1 ea BIDWM PO 10/02/20 18:00 10/07/20 09:02 Nafcillin Sodium 2 gm/Dextrose 50 ml @ 50 mls/hr Q4H IV 10/04/20 12:00 10/07/20 09:01 Ondansetron HCl (ZOFRAN INJection) 4 mg Q4HP PRN IV NAUSEA OR VOMITING 10/02/20 21:25 10/02/20 22:23 DC Ondansetron HCl (ZOFRAN INJection) 4 mg Q4HP PRN IV NAUSEA OR VOMITING 10/06/20 11:55 10/06/20 12:55 DC Ondansetron HCl (ZOFRAN INJection) 4 mg Q6HP PRN IV NAUSEA 10/02/20 22:30 Oxycodone HCl (Roxicodone, Oxyir) 5 mg ASDIRECTED PRN PO PAIN LEVEL 1-4 10/02/20 21:25 10/02/20 22:28 DC Oxycodone HCl (Roxicodone, Oxyir) 5 mg Q6HP PRN PO MODERATE PAIN (PS 5-7) 10/02/20 22:30 10/05/20 21:01 Oxycodone HCl (Roxicodone, Oxyir) 10 mg Q6HP PRN PO SEVERE PAIN (PS 8-10) 10/02/20 22:30 10/07/20 09:47 Oxycodone/ Acetaminophen (Percocet 5mg/ 325mg Tablet) 1 tab Q6HP PRN PO MODERATE PAIN (PS 5-7) 10/02/20 13:40 10/02/20 22:23 DC 10/02/20 16:53 Oxycodone/ Acetaminophen (Percocet 5mg/ 325mg Tablet) 2 tab Q6HP PRN PO SEVERE PAIN (PS 8-10) 10/02/20 13:40 10/02/20 22:23 DC Simvastatin (Zocor) 20 mg QHS PO 10/02/20 21:00 10/06/20 20:07 Sodium Chloride 1,000 ml @ 100 mls/hr Q10H IV 10/02/20 14:20 10/02/20 22:23 DC 10/02/20 16:49 Sodium Chloride (Saline Lock Flush) 10 ml ASDIRECTED PRN IV SEE LABEL COMMENTS 10/07/20 11:05 Sodium Chloride (Saline Lock Flush) 10 ml PICC IV 10/07/20 18:00 Torsemide (Demadex) 10 mg DAILY PO 10/03/20 09:00 Cancel Torsemide (Demadex) 10 mg STAT STAT PO 10/02/20 11:46 10/02/20 11:49 DC 10/02/20 11:51 Vancomycin HCl 1000 mg/IV Miscellaneous Supplies 1 each/ Sodium Chloride 270 ml @ 270 mls/hr Q24H IV 10/03/20 13:00 10/04/20 10:28 DC 10/03/20 13:21 Allergies Coded Allergies: No Known Allergies (Verified , 08/10/19) Joanne Boone MD Oct 07, 2020 12:41
[2020-10-07 14:00] VITALS: BP 111/62
--- NOTE | 2020-10-07 17:00 | IPNPDOC ---
Text Note Date of Service The patient was seen on 10/07/20. NOTE POD 5 from I&D washout with liner change and removal of HO R TKA, for septic knee. Pt well. No complaints or concerns today. JOY showed valve vegetations. PICC placed for IV antibiotics. Dressing inspected. Staining at proximal portion. Dressing change was done yesterday. Planning for discharge, possibly 24-48 hours. Will f/u with me in clinic in 2 weeks. Pt should contact his surgeon to update on the periprosthetic infection of the R TKA. I will do a dressing change tomorrow. He had one done yesterday, but I would like to see the wound prior to discharge. The optifoam dressing can stay in place for up to 7 days. If soiled, can do dressing change: Remove dressing. NSS cleanse; clean wound edges with chlorhexidene wand. [place] the incision line with betadine. Dry telfa island or telfa and tegaderm dressing after the optifoam has been removed. Change q3 days, PRN David Tillman MD VS,Lulú, I+O VS, Lulú, I+O Laboratory Tests 10/07/20 05:18 Vital Signs Date Time Temp Pulse Resp B/P (MAP) Pulse Ox O2 Delivery O2 Flow Rate FiO2 10/07/20 14:00 98.0 65 18 111/62 (78) 94 Room Air 10/06/20 14:00 2.0 I&O- Last 24 Hours up to 6 AM 10/07/20 06:00 Intake Total 2630 ml Output Total 1220 ml Balance 1410 ml DAVID TILLMAN MD Oct 07, 2020 17:00
--- NOTE | 2020-10-07 17:32 | REP ---
PROCEDURE NAME: PICC LINE INSERTION W/SITERITE CLINICAL INFORMATION: snf abx. COMPARISON: None. PROCEDURE DESCRIPTION: The procedure was performed by GENNY Steele, under the direct supervision of Dr. Robledo. The risks and benefits of the procedure were explained to the patient and an informed consent was obtained both verbally and written. Directly prior to the start of the procedure a formal time-out was completed in the procedure room. The left basilic vein was localized using ultrasound guidance. The skin was prepped and draped in sterile fashion. One mL of 1% lidocaine 10 mg/mL was used as a local anesthetic. Using ultrasound guidance the left basilic vein was cannulated, and a 0.018 guidewire was inserted and advanced to the level of SVC using fluoroscopic guidance. The needle was removed and a 4.5 Slovak dilator and peel-away sheath was inserted over the guidewire. A 4.5 Slovak single lumen catheter was cut to a length of 42 cm. The dilator was removed and the catheter was inserted over the guidewire with the tip ending at the level of the SVC. The peel-away sheath was removed and the catheter was flushed with heparinized saline as per hospital protocol. The catheter was affixed to the skin and a sterile dressing was applied. The patient tolerated the procedure well and there were no immediate complications. CONCLUSION: PICC line insertion into the left basilic vein. 0.1 minutes of fluoroscopy time was utilized for this procedure. Some fluoroscopic images are performed with last image hold technology. These images require no additional radiation. <Electronically signed by Mariama Arvizu > 10/07/20 1613 <Electronically signed by Duane Robledo > 10/07/20 2055
[2020-10-07] MEDS: SODIUM CHLORIDE 0.9% INJ 10 ML SYR IV SCH (18:24)
--- NOTE | 2020-10-07 19:28 | IPN ---
PROGRESS NOTE DATE: 10/07/2020 SUBJECTIVE: Hossein seems to be doing well. His is at the bedside. She is a little anxious about his home IV antibiotic, but is willing to do it. He had his PICC line today. He has no nausea, vomiting or diarrhea. No chest pain or shortness of breath. He has had no fever or chills. His knee pain is minimal. He only took one narcotic all 24 hours. His range of motion is 90 degrees, but he states this is his range of motion he has had from that knee before. PHYSICAL EXAMINATION: Pupils equal and reactive, anicteric. Heart: Normal S1, S2 with a 2/6 systolic ejection murmur. No rubs or gallops. Lungs are clear, no wheezes, rales or rhonchi. Abdomen: Soft, nontender, no hepatosplenomegaly. Extremities: Right leg has +1 edema. Right knee incision is clean. There is minimal bloody discharge on the dressing. He has 90 degree range of motion. Neurologic examination: Normal. Cranial nerves intact. Skin: Has a rash around his face mostly papular. It is non-pruritic. LABORATORY: White count 4.4, hemoglobin 8.8, hematocrit 27.9, platelets 161, ESR 1.28. Sodium 140, potassium 3.2, chloride 104, bicarbonate 30, BUN 32, creatinine 1.97, glucose 119, calcium 7.9. CRP 17.5, down from 36.4. Right knee cultures were all positive for methicillin-susceptible Staphylococcus aureus (MSSA). Blood cultures were positive for methicillin-susceptible Staphylococcus aureus (MSSA) on 10/02 and negative on 10/04 after 48 hours. Echocardiogram, transesophageal was done by Dr. Somers because of concern of endocarditis. On his transthoracic echocardiogram showed a small vegetation on the aortic valve without significant insufficiency or stenosis. ASD with a left to right shunt. Atherosclerosis of the thoracic aorta and mild mitral tricuspid and pulmonic insufficiency. Transthoracic echocardiogram was done on 10/03 was of fair technical quality with an echodensity that was attached to the aortic valve that was suspicious for vegetation. Ejection fraction 60 to 65%. IMPRESSION: 1. 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 The patient is on IV nafcillin 2 gm every 8 hours. Now that his blood cultures are negative, would add rifampin 300 mg by mouth twice a day. 2. 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 The patient will be on 6 weeks of IV antibiotics. 3. 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 4. Fluid overload, resolved with diuresis. The patient has mild hypokalemia. He had received furosemide 40 mg IV yesterday. PLAN: The patient will be treated with IV nafcillin 12 gm continuous infusion for a total of 6 weeks for a negative culture with end of therapy date planned for 11/16/2020. Rifampin 300 mg by mouth twice a day will be added today. The patient will need a total of 6 months or oral antibiotic as prosthesis has remained in place and only debridement was done, so he has a risk of relapse with infection if antibiotics are stopped too early. He will need blood work done weekly, including complete blood count (CBC), comprehensive metabolic panel (CMP), erythrocyte sedimentation rate (ESR), C-reactive protein (CRP) weekly. Please consult [facility] for teaching of home IV antibiotics. The is willing to learn. I anticipate the patient could be discharged in the next 24 to 28 hours. There is also a drug interaction between amlodipine and rifampin; and therefore, amlodipine will be discontinued; and if his blood pressure needs better control, he probably could be switched to an YING inhibitor. The case has been discussed with Dr. Somers, who will be following the patient as an outpatient and agrees with the plan.
[2020-10-07] MEDS: rifAMPin 150MG CAPSULE PO SCH (20:12)
[2020-10-07] MEDS: SIMVASTATIN 20 MG TAB PO SCH (20:12)
[2020-10-07 22:00] VITALS: BP 133/62
[2020-10-08] MEDS: NAFCILLIN SOD 2 GM in D5W MINI-BAG PLUS 50 ML IV SCH ×5 (03:34→20:48)
[2020-10-08] MEDS: SODIUM CHLORIDE 0.9% INJ 10 ML SYR IV SCH ×2 (04:59→17:31)
[2020-10-08 06:00] VITALS: BP 126/62
[2020-10-08 06:42] LABS: HEMOGLOBIN 8.8 g/dl (13.5-17.5); MEAN CORPUSCULAR HGB CONC 31.4 g/dl (32.0-36.5); MEAN CORPUSCULAR VOLUME 101.8 fl (80.0-96.0); PLATELET COUNT, AUTOMATED 229 10^3/uL (150-450); RED BLOOD COUNT 2.75 10^6/uL (4.30-6.10); WHITE BLOOD COUNT 5.6 10^3/uL (4.0-10.0)
[2020-10-08 07:07] LABS: CREATININE FOR GFR 1.7 MG/DL (0.70-1.30); GLOMERULAR FILTRATION RATE 42.3 (>42); POTASSIUM SERUM 3.8 MEQ/L (3.5-5.1)
[2020-10-08] MEDS: **hydrALAZINE** 10 MG TAB PO SCH ×2 (08:19→20:49)
[2020-10-08] MEDS: GABAPENTIN 400MG CAP PO SCH ×2 (08:19→20:49)
[2020-10-08] MEDS: ASPIRIN 81MG ENTERIC TABLET PO SCH ×2 (08:19→20:49)
[2020-10-08] MEDS: rifAMPin 150MG CAPSULE PO SCH ×2 (08:19→20:48)
[2020-10-08] MEDS: LACTOBACILLUS ACIDOPHILUS CAP (BACID) PO SCH ×2 (08:19→17:31)
[2020-10-08] MEDS: atenoloL 25 MG TAB PO SCH (08:20)
[2020-10-08] MEDS: SODIUM CHLORIDE 0.9% INJ 10 ML SYR IV PRN ×2 (08:20→12:22)
--- NOTE | 2020-10-08 11:26 | IPNPDOC ---
Text Note Date of Service The patient was seen on 10/08/20. NOTE SUBJECTIVE: -No new complaints, doing well, continuing with PT -Denies chest pain, fevers, chills, shortness of breath. OBJECTIVE: PHYSICAL EXAMINATION: VS: Please see below CONSTITUTIONAL: No acute distress, resting comfortably, AAO x 3 EYES: PERRLA, EOM intact HENT, MOUTH: Normocephalic, atraumatic, moist mucous membranes NECK: SUPPLE, no JVD, no lymphadenopathy, no carotid bruit CV: Murmur 2/6 systolic, Regular rate and rhythm, S1S2 normal, no rubs/gallops RESPIRATORY: Clear to auscultation bilaterally, no rales/rhonchi/wheezes GI: BS positive in 4 quadrants, soft, nontender, nondistended, no rebound or guarding, no organomegaly : Deferred MUSCULOSKELETAL: Normal ROM. No cyanosis, clubbing, swelling, joint deformity. Improving RLE edema. Pulses present in all extremities INTEGUMENTARY:Right knee incision with dressing changed this AM by surgery, c/d/i. NEUROLOGIC: Cranial Nerves II-XII are intact, no focal deficits PSYCHIATRIC: Mood and affect are normal LABORATORY DATA: reviewed MICROBIOLOGY: Repeat BCx x 2 sets: NG BCx x 2 sets: MSSA Right knee fluid cx from knee aspiration: MSSA Right knee tissue cx: MSSA IMAGING: JOY 10/06/20: 1. Normal LV and RV systolic function. 2. Small vegetation on the aortic valve without significant insufficiency or stenosis. 3. Mild mitral, tricuspid, and pulmonic insufficiency. 4. Secundum ASD with [id number]-[id number] shunt. 5. Atherosclerosis of the thoracic aorta. TTE 10/03/20: -EF 60-65% 1. Study is of fair technical quality with challenging visualization, patient is in sinus rhythm. 2. Normal LV size with normal LV systolic function and grade 1 diastolic dysfunction. 3. Sclerotic abnormalities of poorly visualized aortic valve and echo densities attached to the valve raising suspicion for vegetation. Poor visualization. 4. Usoe-hc-bschnzry tricuspid insufficiency. 5. Likely normal central venous pressure, but at least moderate pulmonary hypertension. CXR 10/05/20: Chronic appearing changes. Minimal atelectasis cannot be excluded. CXR: Chronic stable changes. No focal consolidation or effusion. XR right knee : chronic changes as noted above- Relatively normal appearance to the orthopedic hardware but cannot exclude joint effusion Vascular US right LE: No DVT ASSESSMENT: 75-year-old male with PMH of CAD, hypertension, hyperlipidemia, chronic kidney disease stage III, chronic back pain, iron deficiency anemia admitted under hospitalist service for right knee pain rule out septic joint, right lower extremity cellulitis. PLAN: Shortness of breath possibly 2/2 to HFpEF, atelectasis -98% on RA, s/p diuresis -BNP 2594 on 10/05/20 -CXR above -Echocardiogram above -Holding off on daily lasix with underlying CKD, can dose intermittently PRN -C/w BB. -incentive spirometer Q2H while awake. Encourage ambulation MSSA bacteremia likely 2/2 to chronic lower ext wound (now healed), cellulitis with infected right knee arthroplasty AND AV endocarditis -JOY: above -MICRO above -Repeat BCx NG -C/w Nafcillin IV for now, ID onboard, to remain on nafcillin till 11/16, rifampin 300 BID as well. PICC in place. 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 -Per ortho (Dr. Hernández), can follow up with him in 2 weeks, ID consulted, on nafcillin Mechanical fall -PT: would benefit from continued rehab -Discussed rehab with patient and he was hoping he could go home rather than continue with inpatient rehab. -Will update team -C/w PT/OT --> PT recommending 1-2 more sessions with potential home discharge HTN -BP controlled -continue BB, hold CCB given rifampin DDI, may start ACEi if indicated for HTN CKD Stage III -Baseline Cr 1.8, confirmed with nephrology office -F/u daily labs, avoid other nephrotoxic medications HLD -C/w home med Chronic back pain -C/w gabapentin, percocet above Iron deficiency anemia -Stable Thrombocytopenia -Monitor daily, if worsens, stop ASA DVT px -ASA bid per ortho Resolved issues: Right LE cellulitis of anterior harmon, knee DISPOSITION: Admitted under hospitalist service with orthopedic surgery , ID consulted. Plan is likely going to be discharge home with services per PT recs. VS,Fishbone, I+O VS, Fishbone, I+O Laboratory Tests 10/08/20 06:11 Vital Signs Date Time Temp Pulse Resp B/P (MAP) Pulse Ox O2 Delivery O2 Flow Rate FiO2 10/08/20 08:20 80 10/08/20 08:19 124/64 10/08/20 06:00 98.6 18 94 Room Air 10/06/20 14:00 2.0 I&O- Last 24 Hours up to 6 AM 10/08/20 06:00 Intake Total 1110 ml Output Total 1250 ml Balance -140 ml LOGAN SNYDER MD Oct 08, 2020 09:50
[2020-10-08 14:00] VITALS: BP 122/64
[2020-10-08] MEDS: oxyCODONE 5MG TAB PO PRN (15:07)
[2020-10-08 16:20] LABS: C REACTIVE PROTEIN QUANTITATIV 13.7 MG/DL (0.00-0.30)
--- NOTE | 2020-10-08 17:08 | IPNPDOC ---
Text Note Date of Service The patient was seen on 10/08/20. NOTE SUBJECTIVE: Hossein is in good spirits today and eager to go home. He has been working with PT/OT and the nurses in walking about the floor and on the stairs. His is at bedside. He is continuing to receive IV antibiotics through his PICC line, and plans were made for home-education to train the the patient's for continued at home IV antibiotic treatment. Hossein has no fever, chills, nausia, vomiting, or SOB. His knee pain is minimal. He can move his knee well, with a range of motion around 90deg, which he states was his normal range of motion pre-infection. OBJECTIVE: PHYSICAL EXAM VITALS: see below HEENT: NC/AT. Pupils are equal, round and reactive, and are anicteric. Mucus membranes moist and pink. No conjunctival pallor. HEART: Normal S1 and S2, with a 2/6 systolic ejection murmur. There are no rubs or gallops noticed. LUNGS: Lung sounds are heard in all lung anderson. Some crackling was noted at the bases bilaterally, and clear at the apexes. No wheezes, rales or rhonchi are noted. ABDOMEN: Bowel sounds are heard in al four quadrants. Abdomen is soft, nondistended and nontender. No hepatosplenomegaly is noted. EXTREMITIES: Right leg has 2+ pitting edema to the level of mid harmon. The right knee incision appears clean, with some bleeding after physical activity. No pus is noted. The range of motion of the knees is 90deg bilaterally. NEURO: Normal. Cranial nerves intact. AOx3. LAB: WBC: 5.6, Hm.8, Hct: 28, platelets: 229, ESR: 128 from 10/06. NA: 140, K: 3.8, Cl: 105, BUN: 28, Cr: 1.7, Glu: 111, Ca: 8, CRP: 13.4, decreased from 17.5 on 10/06. Right knee cultures were all positive for methicillin-sensitive staphylococcus aureus. Blood cultures were positive for methicillin-sensitive staphylococcus aureus on 10/02, and negative on 10/04 after 48 hours. A transesophageal echocardiogram preformed by Dr. Somers showed a small veg etation on the aortic valve without significant insufficiency or stenosis, ASD with a left to right shunt, and atherosclerosis of the thoracic aorta and mild mitral tricuspid and pulmonic insufficiency. Transthoracic echocardiogram was done on 10/03 showed an echodensity that was attached to the aortic valve, was suspicious for vegetation. Ejection fraction 60 to 65%. IMPRESSION: 1. 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 The patient is receiving 2g of IV nafcillin every 8 hours, with an end date of 11/16/2020. After the blood cultures turned negative, the patient was started on oral rifampin, 300mg twice a day. 2. 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 Patient is being treated with IV nafcillin which will cover the endocarditis. The patient will be on 6 weeks of treatment, with an end date of 11/16/2020. 3. Aortic septal defect, likely a congenital anomaly found incidentally. PLAN: Continue treatment with continuous IV nafcillin for 6 weeks post negative blood culture, with an end date of 11/16/2020. Rifampin, 300mg PO bid was started yesterday. The patient will require 6 months of oral antibiotic therapy as the prosthetic has remained in place, with only debridement. He will need weekly blood work as an outpatient for complete blood count (CBC), comprehensive metabolic panel (CMP), erythrocyte sedimentation rate (ESR), C-reactive protein (CRP). Followup with infectious diseases as an outpatient ten days after discharge. [facility] education of home IV antibiotics, which his is willing to learn and administer. We anticipate discharge in 24hours. Amlodipine and rifampin have drug interactions. After consulting with cardiology, amlodipine will be discontinued and can be transitioned to an YING inhibitor outpatient if his blood pressure requires further management. Dr. Somers has been consulted and will followup outpatient. VS,Fishbone, I+O VS, Fishbone, I+O Laboratory Tests 10/08/20 06:11 Vital Signs Date Time Temp Pulse Resp B/P (MAP) Pulse Ox O2 Delivery O2 Flow Rate FiO2 10/08/20 15:37 17 Room Air 10/08/20 14:00 99.9 71 122/64 (83) 97 10/06/20 14:00 2.0 I&O- Last 24 Hours up to 6 AM 10/08/20 06:00 Intake Total 1110 ml Output Total 1250 ml Balance -140 ml GME ATTESTATION GME ATTESTATION My faculty preceptor for this patient encounter was physically present during the encounter and was fully available. All aspects of the patient interview, examination, medical decision making process, and medical care plan development were reviewed and approved by the faculty preceptor. The faculty preceptor is aware and concurs with the plan as stated in the body of this note and will attest to such by his/her cosignature. SHREE TYLER Oct 08, 2020 17:07
[2020-10-08] MEDS: SIMVASTATIN 20 MG TAB PO SCH (20:49)
[2020-10-08 22:00] VITALS: BP 118/60
[2020-10-09] MEDS: NAFCILLIN SOD 2 GM in D5W MINI-BAG PLUS 50 ML IV SCH ×4 (00:29→12:22)
[2020-10-09] MEDS: SODIUM CHLORIDE 0.9% INJ 10 ML SYR IV SCH (05:15)
[2020-10-09 06:00] VITALS: BP 115/62
[2020-10-09 06:46] LABS: HEMATOCRIT 27.1 % (42.0-52.0); HEMOGLOBIN 8.5 g/dl (13.5-17.5); MEAN CORPUSCULAR HEMOGLOBIN 32.4 pg (27.0-33.0); MEAN CORPUSCULAR HGB CONC 31.4 g/dl (32.0-36.5); MEAN CORPUSCULAR VOLUME 103.4 fl (80.0-96.0); PLATELET COUNT, AUTOMATED 289 10^3/uL (150-450); RED BLOOD COUNT 2.62 10^6/uL (4.30-6.10); WHITE BLOOD COUNT 5.6 10^3/uL (4.0-10.0)
[2020-10-09 07:07] LABS: CALCIUM LEVEL 8.4 MG/DL (8.8-10.2); CREATININE FOR GFR 1.68 MG/DL (0.70-1.30); GLOMERULAR FILTRATION RATE 42.9 (>42); POTASSIUM SERUM 3.6 MEQ/L (3.5-5.1)
--- NOTE | 2020-10-09 07:27 | IPNPDOC ---
Text Note Date of Service The patient was seen on 10/08/20. NOTE POD 6 Right knee I&D washout, liner change and excision of HO for infected R TKA Pt well, sitting up at breakfast. No complaints or concerns. The pt has had some staining to the proximal portion of the incision, so I had planned a dressing change today to view the wound. Dressing Change: The dressings to the drain portal, laterally and the midline incision of the knee were removed. The drain portal appeared to be healing, but there was still separation of the skin by greater than 1 mm. Proximally, it was noted that a there was a pinpoint of blood oozing from the skin edge. This appeared to be a small vein or arteriole. This was identified as the source of the persistent dressing staining. The wounds were cleansed with chlorhexidene swab. Both of the opening and the incision were painted with betadine. This was allowed to dry. Due to healing concerns, I placed to surgical arabella in the drain portal wound to better approximate the wound edges. I placed 3 arabella at the proximal wound edge that was oozing. This resulted in cessation of the minimal oozing. A gauze and tegaderm dressing was applied to drain site and a fresh optifoam dressing was applied to the midline incision. These dressings will remain in place for 4 days. They can then be removed and dressed PRN as above, if there is still concern for any oozing, which appears to have ceased at this point (I have left a spare optifoam dressing at the bedside for the pt). The wound must be covered for showering. A dressing and wrapping the knee in saran or cling wrap, as well as keeping the knee out of the stream of the shower. NO SOAKING. I will see the patient in clinic for removal of the sutures in 10-14 days. He can continue with ROM exercises to the Right knee. The patient will continue on his IV antibiotic treatments for Septic R TKA and valve vegetations, as per Infectious Disease for his MSSA infection. DN VS,Fishbone, I+O VS, Fishbone, I+O Laboratory Tests 10/09/20 06:08 Vital Signs Date Time Temp Pulse Resp B/P (MAP) Pulse Ox O2 Delivery O2 Flow Rate FiO2 10/08/20 22:00 98.1 76 16 118/60 (79 94 Room Air 10/06/20 14:00 2.0 I&O- Last 24 Hours up to 6 AM 10/09/20 06:00 Intake Total 1190 ml Output Total 375 ml Balance 815 ml STEPHEN TILLMAN MD Oct 09, 2020 07:27
[2020-10-09] MEDS: ASPIRIN 81MG ENTERIC TABLET PO SCH (08:44)
[2020-10-09] MEDS: rifAMPin 150MG CAPSULE PO SCH (08:44)
[2020-10-09] MEDS: LACTOBACILLUS ACIDOPHILUS CAP (BACID) PO SCH (08:44)
[2020-10-09] MEDS: atenoloL 25 MG TAB PO SCH (08:45)
[2020-10-09] MEDS: GABAPENTIN 400MG CAP PO SCH (08:45)
[2020-10-09 08:46] VITALS: BP 118/64
[2020-10-09] MEDS: **hydrALAZINE** 10 MG TAB PO SCH (08:46)
[2020-10-09] MEDS: SODIUM CHLORIDE 0.9% INJ 10 ML SYR IV PRN ×2 (10:15→14:25)
[2020-10-09] MEDS ORDERED: ASPI-551 PO (12:58)
[2020-10-09] MEDS ORDERED: RISATAB3 PO (12:58)
[2020-10-09] MEDS ORDERED: RIFA150C2 PO (12:58)
[2020-10-09 14:00] VITALS: BP 125/63
--- NOTE | 2020-10-09 14:41 | DS.PDOC ---
Discharge Summary General Date of Admission Oct 02, 2020 at 13:37 Date of Discharge 10/09/2020 Attending Physician: LOGAN SNYDER MD Discharge Summary PROCEDURES PERFORMED DURING STAY: I&D washout with liner change and removal of HO R TKA, for septic knee on 10/02 ADMITTING DIAGNOSES: R knee cellulitis DISCHARGE DIAGNOSES: PAST MEDICAL HISTORY: Coronary artery disease Chronic kidney disease stage 3. Hyperlipidemia. Cervical and lumbar spine disease; status post C1-C7 neck fusion with subhash placement and L1-S1 decompression. Iron deficiency anemia. Colon polyps. COMPLICATIONS/CHIEF COMPLAINT: Cellulitis Of Rt Knee Rt Lower Extremity. HISTORY OF PRESENT ILLNESS: Right knee prosthetic joint infection. HISTORY OF PRESENT ILLNESS: 75-year-old M with a history of bilateral total knee arthroplasties done in February and March of 2018 (right knee February, left knee March), CAD, cervical fusion C1-C7 with subhash placement, L1-S1 decompression back surgery, and recurrent right lower extremity cellulitis of the anterior harmon, who presented to [facility] Emergency Department on October 02, 2020 with a chief complaint of increasing pain of his right knee, with a two day history of sudden increase in right knee pain, swelling, and warmth, and had a fall onto his walker after which he called 911 and was brought in by EMS HOSPITAL COURSE: Upon presentation to the ED, he was hypertensive and febrile (T-max of 102.4). A right knee x-ray was done, showing chronic changes with relatively normal appearance to the hardware implanted during the 2018 arthroplasty, but joint effusion could not be excluded. Vascular lower extremity ultrasound was negative. The ED contacted orthopedic surgery (Dr. Hernández), who came and evaluated the patient at the bedside primarily due to concerns of a prosthetic joint infection and performed and arthrocentesis. Initial labs showed elevated CRP, ESR and leukocytosis. He was placed on empiric Vancomycin and Ceftriaxone for possible septic joint from a prosthetic joint infection and right lower extremity cellulitis. Analysis of the synovial fluid revealed a white count of greater than 45,000 with predominant neutrophils over 86%, and it was cloudy. Dr. Hernández took him to the OR on 10/02 for an irrigation and debridement with polyethylene liner exchange and removed heterotrophic bone, with a lateral facetectomy of the patella. A SIDRA drain was also placed on the lateral aspect of the right knee. Post procedure x-ray showed the right knee arthroplasty prosthesis was in good position as was the drain and there did not appear to be any complicating factors. He was kept on vancomycin and second antibiotic was switched to Cefazolin (Ancef) that was eventually discontinued once synovial fluid culture revealed Staphylococcus Aureus on multiple different aspirate cultures and he was eventually switched to nafcillin after sensitivities revealed MSSA. ID was consulted and TTE on 10/03 a small vegetation on the aortic valve without significant insufficiency or stenosis. ASD with a left to right shunt. Atherosclerosis of the thoracic aorta and mild mitral tricuspid and pulmonic insufficiency. He had a JOY done by Dr Somers on 10/05 during which the aortic valve was poorly visualized but was sclerotic and probably tricuspid and there appeared to be poorly seen echodensity in the aortic root area adjacent to the valve, which raised suspicion for vegetation. Unfortunately, the visualization was poor and he could not be certain that this may not be just an artifact, but the suspicion for vegetation was high and he treatment was thus decided as with aortic valve endorcarditis. Per ID recommendations, he will received 6 weeks of IV nafcillin (had PICC placed on 10/07), with BID rifampin, and will follow up with ID in the outpatient setting where he will be switched to oral antibiotics after the 6 weeks of IV antibiotics for a total abx therapy duration of 6 months, since he had a washout but essentially retained the hardware. He was evaluated by PT/OT and deemed appropriate for home discharge. DISCHARGE MEDICATIONS: Please see below. ALLERGIES: Please see below. PHYSICAL EXAMINATION ON DISCHARGE: VITAL SIGNS: Please see below. VS: Please see below CONSTITUTIONAL: No acute distress, resting comfortably, AAO x 3 EYES: PERRLA, EOM intact HENT, MOUTH: Normocephalic, atraumatic, moist mucous membranes NECK: SUPPLE, no JVD, no lymphadenopathy, no carotid bruit CV: Murmur 2/6 systolic, Regular rate and rhythm, S1S2 normal, no rubs/gallops RESPIRATORY: Clear to auscultation bilaterally, no rales/rhonchi/wheezes GI: BS positive in 4 quadrants, soft, nontender, nondistended, no rebound or guarding, no organomegaly MUSCULOSKELETAL: Normal ROM. No cyanosis, clubbing or joint deformity. Improving RLE edema with knee with dressing changed on 10/08 and c/d/i. Pulses present in all extremities INTEGUMENTARY:Right knee incision with dressing changed by surgery on 10/08/2020, c/d/i. NEUROLOGIC: Cranial Nerves II-XII are intact, no focal deficits PSYCHIATRIC: Mood and affect are normal LABORATORY DATA: Please see below. IMAGING: JOY 10/06/20: 1. Normal LV and RV systolic function. 2. Small vegetation on the aortic valve without significant insufficiency or stenosis. 3. Mild mitral, tricuspid, and pulmonic insufficiency. 4. Secundum ASD with [id number] shunt. 5. Atherosclerosis of the thoracic aorta. TTE 10/03/20: -EF 60-65% 1. Study is of fair technical quality with challenging visualization, patient is in sinus rhythm. 2. Normal LV size with normal LV systolic function and grade 1 diastolic dysfunction. 3. Sclerotic abnormalities of poorly visualized aortic valve and echo densities attached to the valve raising suspicion for vegetation. Poor visualization. 4. Ijst-[id number] tricuspid insufficiency. 5. Likely normal central venous pressure, but at least moderate pulmonary hypertension. CXR 10/05/20: Chronic appearing changes. Minimal atelectasis cannot be excluded. CXR: Chronic stable changes. No focal consolidation or effusion. XR right knee : chronic changes as noted above- Relatively normal appearance to the orthopedic hardware but cannot exclude joint effusion Vascular US right LE: No DVT PROGNOSIS: Good ACTIVITY: As tolerated DIET: 2g sodium DISCHARGE PLAN: Home with 6 weeks of IV nafcillin and rifampin, with ID follow up. Orthopedics follow up within 1-2 weeks. PCP within 7d of discharge. DISPOSITION: Home DISCHARGE INSTRUCTIONS: Home with 6 weeks of IV nafcillin and rifampin, with ID follow up. Orthopedics follow up within 1-2 weeks. PCP within 7d of discharge. ITEMS TO FOLLOWUP ON ON OUTPATIENT: R knee septic arthritis s/p washout - f/u orthopedics, ID Endocarditis - f/u ID PCP follow up DISCHARGE CONDITION: Stable TIME SPENT ON DISCHARGE: 60 minutes. Vital Signs/I&Os Vital Signs Date Time Temp Pulse Resp B/P (MAP) Pulse Ox O2 Delivery O2 Flow Rate FiO2 10/09/20 08:46 118/64 10/09/20 08:45 77 10/09/20 06:00 98.0 16 96 Room Air 10/06/20 14:00 2.0 I&O- Last 24 Hours up to 6 AM 10/09/20 06:00 Intake Total 1190 ml Output Total 375 ml Balance 815 ml Laboratory Data Labs 24H Laboratory Tests 2 10/09/20 06:08: Nucleated Red Blood Cells % (auto) 0.0, Anion Gap 7L, Glomerular Filtration Rate 42.9, Calcium Level 8.4L CBC/BMP Laboratory Tests 10/09/20 06:08 Microbiology Microbiology 10/05/20 Blood Culture - Preliminary, Resulted No Growth after 72 hours. All specime... 10/04/20 Blood Culture - Final, Complete NO GROWTH AFTER 5 DAYS 10/02/20 Gram Stain - Final, Complete 10/02/20 Surgical Biopsy Culture - Final, Complete Staphylococcus Aureus 10/02/20 Gram Stain - Final, Complete 10/02/20 Surgical Biopsy Culture - Final, Complete Staphylococcus Aureus 10/02/20 Gram Stain - Final, Complete 10/02/20 Surgical Biopsy Culture - Final, Complete Staphylococcus Aureus 10/02/20 Gram Stain - Final, Complete 10/02/20 Surgical Biopsy Culture - Final, Complete Staphylococcus Aureus 10/02/20 Gram Stain - Final, Complete 10/02/20 Surgical Biopsy Culture - Final, Complete Staphylococcus Aureus 10/02/20 Gram Stain - Final, Complete 10/02/20 Surgical Biopsy Culture - Final, Complete Staphylococcus Aureus 10/02/20 Gram Stain - Final, Complete 10/02/20 Body Fluid Culture - Final, Complete Staphylococcus Aureus 10/02/20 Gram Stain - Final, Complete 10/02/20 Body Fluid Culture - Final, Complete Staphylococcus Aureus 10/02/20 Blood Culture - Final, Complete Staphylococcus Aureus 10/02/20 Blood Culture - Final, Complete Staphylococcus Aureus Discharge Medications Scheduled Aspirin (Aspirin EC) 81 Mg Tablet.dr, 81 MG PO BID Atenolol (Atenolol) 25 Mg Tab, 25 MG PO DAILY, (Reported) Calcitriol (Rocaltrol) 0.25 Mcg Capsule, 0.25 MCG PO 5XW, (Reported) MON THRU FRI Gabapentin (Gabapentin) 800 Mg Tab, 800 MG PO BID, (Reported) Hydralazine HCl (Hydralazine HCl) 10 Mg Tablet, 10 MG PO BID, (Reported) L.acidoph/L.bulg/B.bif/S.therm (Aviva-Bid Caplet) 1 Each Tablet, 1 EA PO BIDWM Rifampin (Rifampin) 150 Mg Capsule, 300 MG PO BID Simvastatin (Simvastatin) 20 Mg Tablet, 20 MG PO QHS, (Reported) Scheduled PRN Acetaminophen (Acetaminophen) 500 Mg Tablet, 1,000 MG PO Q6H PRN for PAIN / FEVER, (Reported) Tramadol HCl (Tramadol HCl) 50 Mg Tablet, 50 MG PO BID PRN for PAIN, (Reported) Allergies Coded Allergies: No Known Allergies (Verified , 08/10/19) LOGAN SNYDER MD Oct 09, 2020 14:41
== END 2020-10-09 16:56 | disposition home health service (06) | DRG 485 ==
LOC: EDBD 10:02 → M ED 10:02 → M ED INP 13:37 → ENRESERV 14:20 → M MSPAV 15:00
PROVIDERS: ADMIT Internal Medicine; ATTEND Internal Medicine
PROC: 0SPC09Z Removal of Liner from Right Knee Joint, Open Approach (ICD-10-PCS; 2020-10-02)
PROC: 0SUV09Z Supplement Right Knee Joint, Tibial Surface with Liner, Open Approach (ICD-10-PCS; 2020-10-02)
PROC: 0S9C3ZZ Drainage of Right Knee Joint, Percutaneous Approach (ICD-10-PCS; 2020-10-02)
PROC: 0SBC0ZZ Excision of Right Knee Joint, Open Approach (ICD-10-PCS; principal; 2020-10-02 18:00)
PROC: 02HV33Z Insertion of Infusion Device into Superior Vena Cava, Percutaneous Approach (ICD-10-PCS; 2020-10-07)
DX: T84.53XA Infection and inflammatory reaction due to internal right knee prosthesis, initial encounter (principal); I33.0 Acute and subacute infective endocarditis; I50.33 Acute on chronic diastolic (congestive) heart failure; L03.115 Cellulitis of right lower limb; R78.81 Bacteremia; N17.9 Acute kidney failure, unspecified; J98.11 Atelectasis; I13.0 Hypertensive heart and chronic kidney disease with heart failure and stage 1 through stage 4 chronic kidney disease, or unspecified chronic kidney disease; N18.30 Chronic kidney disease, stage 3 unspecified; M61.451 Other calcification of muscle, right thigh; I25.10 Atherosclerotic heart disease of native coronary artery without angina pectoris; E78.5 Hyperlipidemia, unspecified; D50.9 Iron deficiency anemia, unspecified; Z96.653 Presence of artificial knee joint, bilateral; I08.3 Combined rheumatic disorders of mitral, aortic and tricuspid valves; Z79.82 Long term (current) use of aspirin; Z79.899 Other long term (current) drug therapy; Z87.891 Personal history of nicotine dependence; M54.5 Low back pain; I25.2 Old myocardial infarction; B95.62 Methicillin resistant Staphylococcus aureus infection as the cause of diseases classified elsewhere; D69.6 Thrombocytopenia, unspecified; Y83.1 Surgical operation with implant of artificial internal device as the cause of abnormal reaction of the patient, or of later complication, without mention of misadventure at the time of the procedure

== ENCOUNTER → 2020-10-11 | Outpatient (REF) | payer MEDICARE ==
[~2020-10-11] MED LIST changes: +ACET-683 PO; +AMLO2.5T3 PO; +ASPI-551 PO; -HEPARIN SOD (PORCINE) 5000UNITS/ML 1ML VIAL/SYRINGE SC SCH; +RIFA150C2 PO; +RISATAB3 PO; +SIMV20TA22 PO
[2020-10-11 11:45] LABS: HEMATOCRIT 28.6 % (42.0-52.0); HEMOGLOBIN 8.8 g/dl (13.5-17.5); MEAN CORPUSCULAR HEMOGLOBIN 32.1 pg (27.0-33.0); MEAN CORPUSCULAR HGB CONC 30.8 g/dl (32.0-36.5); MEAN CORPUSCULAR VOLUME 104.4 fl (80.0-96.0); PLATELET COUNT, AUTOMATED 423 10^3/uL (150-450); RED BLOOD COUNT 2.74 10^6/uL (4.30-6.10); WHITE BLOOD COUNT 9.3 10^3/uL (4.0-10.0)
[2020-10-11 12:12] LABS: ERYTHROCYTE SEDIMENTATION RATE 126 mm/hr (0-20)
[2020-10-11 12:37] LABS: ALBUMIN 2.2 GM/DL (3.2-5.2); BILIRUBIN,TOTAL 1.3 MG/DL (0.2-1.0); C REACTIVE PROTEIN QUANTITATIV 12.5 MG/DL (0.00-0.30); CREATININE FOR GFR 1.82 MG/DL (0.70-1.30); GLOMERULAR FILTRATION RATE 39.1 (>42); POTASSIUM SERUM 3.6 MEQ/L (3.5-5.1); TOTAL PROTEIN 6.6 GM/DL (6.4-8.2)
== END ==
LOC: M LAB REF 11:25
PROVIDERS: ATTEND Internal Medicine Infectious Disease
DX: A49.01 Methicillin susceptible Staphylococcus aureus infection, unspecified site (principal); T84.53XD Infection and inflammatory reaction due to internal right knee prosthesis, subsequent encounter; I33.9 Acute and subacute endocarditis, unspecified

== ENCOUNTER → 2020-10-14 | Outpatient (REF) | payer MEDICARE ==
[2020-10-14 14:48] LABS: HEMATOCRIT 26.3 % (42.0-52.0); HEMOGLOBIN 8.2 g/dl (13.5-17.5); MEAN CORPUSCULAR HEMOGLOBIN 31.9 pg (27.0-33.0); MEAN CORPUSCULAR HGB CONC 31.2 g/dl (32.0-36.5); MEAN CORPUSCULAR VOLUME 102.3 fl (80.0-96.0); PLATELET COUNT, AUTOMATED 436 10^3/uL (150-450); RED BLOOD COUNT 2.57 10^6/uL (4.30-6.10); WHITE BLOOD COUNT 8.2 10^3/uL (4.0-10.0)
[2020-10-14 15:40] LABS: ERYTHROCYTE SEDIMENTATION RATE 122 mm/hr (0-20)
[2020-10-14 16:44] LABS: ALBUMIN 1.9 GM/DL (3.2-5.2); C REACTIVE PROTEIN QUANTITATIV 9.38 MG/DL (0.00-0.30); CALCIUM LEVEL 8.5 MG/DL (8.8-10.2); CREATININE FOR GFR 1.91 MG/DL (0.70-1.30); POTASSIUM SERUM 3.7 MEQ/L (3.5-5.1); TOTAL PROTEIN 6.3 GM/DL (6.4-8.2)
== END ==
LOC: M SHH 14:09
PROVIDERS: ATTEND Internal Medicine Infectious Disease
DX: A49.01 Methicillin susceptible Staphylococcus aureus infection, unspecified site (principal); I33.9 Acute and subacute endocarditis, unspecified; T84.53XD Infection and inflammatory reaction due to internal right knee prosthesis, subsequent encounter

== ENCOUNTER → 2020-10-21 | Outpatient (REF) | payer MEDICARE ==
[~2020-10-21] MED LIST changes: +AMLO1TAB25 PO; +ASPI-161 PO; +ATOR1TAB21 PO; +BACITAB PO; +FURO40TA2 PO; +NIFE15CA PO; +[UNRECOGNIZED DRUG - CODE] IV
[2020-10-21 15:36] LABS: HEMOGLOBIN 7.8 g/dl (13.5-17.5); MEAN CORPUSCULAR HEMOGLOBIN 32.2 pg (27.0-33.0); MEAN CORPUSCULAR HGB CONC 31.2 g/dl (32.0-36.5); MEAN CORPUSCULAR VOLUME 103.3 fl (80.0-96.0); PLATELET COUNT, AUTOMATED 330 10^3/uL (150-450); RED BLOOD COUNT 2.42 10^6/uL (4.30-6.10); WHITE BLOOD COUNT 6.1 10^3/uL (4.0-10.0)
[2020-10-21 16:13] LABS: ERYTHROCYTE SEDIMENTATION RATE 124 mm/hr (0-20)
[2020-10-21 16:20] LABS: ALBUMIN 1.8 GM/DL (3.2-5.2); BILIRUBIN,TOTAL 1.2 MG/DL (0.2-1.0); C REACTIVE PROTEIN QUANTITATIV 9.29 MG/DL (0.00-0.30); CREATININE FOR GFR 2.25 MG/DL (0.70-1.30); GLOMERULAR FILTRATION RATE 30.6 (>42); POTASSIUM SERUM 4.1 MEQ/L (3.5-5.1); TOTAL PROTEIN 6.8 GM/DL (6.4-8.2)
== END ==
LOC: M SHH 15:26
PROVIDERS: ATTEND Internal Medicine Infectious Disease
DX: A49.01 Methicillin susceptible Staphylococcus aureus infection, unspecified site (principal); T84.53XD Infection and inflammatory reaction due to internal right knee prosthesis, subsequent encounter; I33.9 Acute and subacute endocarditis, unspecified
CPT/HCPCS: 80053; 85027; 85652; 86140; G0463

== ENCOUNTER 2020-10-28 16:34 | Inpatient (IN) | payer MEDICARE ==
[~2020-10-28] VITALS: Ht 160 cm; Wt 64.1 kg
[~2020-10-28 16:34] MED LIST changes: -AMLO1TAB25 PO; -ASPI-161 PO; -ATOR1TAB21 PO; -BACITAB PO; -FURO40TA2 PO; -NIFE15CA PO; -[UNRECOGNIZED DRUG - CODE] IV
[2020-10-28 19:09] LABS: BASO % 0.5 % (0.0-1.0); EOS # 0.4 10^3/uL (0.0-0.5); EOS % 7.2 % (0.0-3.0); HEMATOCRIT 25.1 % (42.0-52.0); HEMOGLOBIN 7.9 g/dl (13.5-17.5); LYMPH % 16.2 % (24.0-44.0); MEAN CORPUSCULAR HEMOGLOBIN 32.6 pg (27.0-33.0); MEAN CORPUSCULAR HGB CONC 31.5 g/dl (32.0-36.5); MEAN CORPUSCULAR VOLUME 103.7 fl (80.0-96.0); MONO # 0.6 10^3/uL (0.0-0.8); MONO % 10.1 % (2.0-8.0); NEUTROPHILS # 3.9 10^3/uL (1.5-8.5); NEUTROPHILS % 65.7 % (36.0-66.0); PLATELET COUNT, AUTOMATED 231 10^3/uL (150-450); RED BLOOD COUNT 2.42 10^6/uL (4.30-6.10); WHITE BLOOD COUNT 5.9 10^3/uL (4.0-10.0)
--- NOTE | 2020-10-28 19:17 | REP ---
INDICATION: CHEST PAIN. COMPARISON: 10/05/2020. TECHNIQUE: SINGLE PORTABLE AP VIEW OF THE CHEST WAS PERFORMED. FINDINGS: THERE IS NO ACUTE INFILTRATE OR PULMONARY EDEMA. LUNGS ARE CLEAR. HEART IS NOT SIGNIFICANTLY ENLARGED. MEDIASTINAL SILHOUETTE IS UNREMARKABLE. THE VISUALIZED OSSEOUS STRUCTURES ARE INTACT.Metallic internal fixation is seen in the upper thoracic spine. IMPRESSION: NO ACUTE PULMONARY DISEASE. <Electronically signed by Juan Carlos Prabhakar > 10/28/201912
[2020-10-28 19:20] LABS: INR 1.13; PROTHROMBIN TIME 14.8 SECONDS (12.5-14.3)
[2020-10-28 19:21] LABS: PARTIAL THROMBOPLASTIN TIME 43.9 SECONDS (24.2-38.5)
[2020-10-28 19:40] LABS: ALBUMIN 2.1 GM/DL (3.2-5.2); ALT/SGPT 14 U/L (12-78); BILIRUBIN,DIRECT 0.1 MG/DL (0.0-0.2); BILIRUBIN,TOTAL 1.2 MG/DL (0.2-1.0); BLOOD UREA NITROGEN 27 MG/DL (7-18); CARBON DIOXIDE LEVEL 29 MEQ/L (21-32); CHLORIDE LEVEL 108 MEQ/L (98-107); CK-MB VALUE MASS 3.2 NG/ML (<3.6); CPK CREATINE PHOSPHOKINASE 136 U/L (39-308); CREATININE FOR GFR 2.18 MG/DL (0.70-1.30); FREE T4 0.71 NG/DL (0.76-1.46); GLOMERULAR FILTRATION RATE 31.7 (>42); GLUCOSE, FASTING 133 MG/DL (70-100); LIPASE 315 U/L (73-393); MB/CK RELATIVE INDEX 2.35 (< OR =4); POTASSIUM SERUM 3.5 MEQ/L (3.5-5.1); SODIUM LEVEL 145 MEQ/L (136-145); TOTAL PROTEIN 7.3 GM/DL (6.4-8.2); TROPONIN I < 0.02 NG/ML (< 0.10)
[2020-10-28] MEDS: DOCUSATE SODIUM 100MG CAPSULE PO SCH (21:00)
[2020-10-28 21:25] LABS: BASO % 0.4 % (0.0-1.0); EOS # 0.4 10^3/uL (0.0-0.5); EOS % 7.3 % (0.0-3.0); LYMPH # 0.8 10^3/uL (1.5-5.0); LYMPH % 16.4 % (24.0-44.0); MEAN CORPUSCULAR HGB CONC 31.1 g/dl (32.0-36.5); MONO # 0.6 10^3/uL (0.0-0.8); MONO % 11.1 % (2.0-8.0); NEUTROPHILS # 3.2 10^3/uL (1.5-8.5); NEUTROPHILS % 64.2 % (36.0-66.0); PLATELET COUNT, AUTOMATED 203 10^3/uL (150-450); RED BLOOD COUNT 2.03 10^6/uL (4.30-6.10)
[2020-10-28 21:26] LABS: HEMATOCRIT 20.9 % (42.0-52.0); HEMOGLOBIN 6.5 g/dl (13.5-17.5)
[2020-10-28] MEDS ORDERED: [UNRECOGNIZED DRUG - CODE] IV (22:52)
[2020-10-28] MEDS ORDERED: ASPI-161 PO (22:52)
[2020-10-28] MEDS ORDERED: BACITAB PO (22:52)
[2020-10-28] MEDS ORDERED: RIFA150C2 PO (22:52)
[2020-10-28 23:19] VITALS: BP 191/97
[2020-10-28 23:31] LABS: RSV AMPLIFICATION NEGATIVE (NEGATIVE)
[2020-10-28 23:35] VITALS: BP 196/82
[2020-10-28] MEDS ORDERED: ACETAMINOPHEN TAB 650MG DOSE (2X325MG) PO PRN (23:45)
[2020-10-28] MEDS ORDERED: MOM 30ML SUSPENSION UDC PO PRN (23:45)
[2020-10-28] MEDS ORDERED: MAALOX 30 ML SUSP *UDC PO PRN (23:45)
--- NOTE | 2020-10-28 23:46 | HPEPDOC ---
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 His home [facility] nurse oliva labs today, noted that his Hgb 6.7 (baseline 7-9). Repeat Hgb in ER was 6.5. Patient had trace guaic positive stool sample in ER. The patient denies melena, bright red blood per rectum, hematemesis, hemoptysis. He denies weakness, lightheadedness, chest pain, palpitations, n/v/d or abdominal pain. PAST MEDICAL HISTORY: R knee prosthetic joint infection (discharged 10/09/20). IV nafcillin continuous infusion 6 weeks (EOT 11/16/20) and PO rifampin BID. Total duration of therapy [address] Umana Aortic valve infective endocarditis. IV nafcillin via PICC (EOT 11/16/20) CAD HTN HLD CKD stage II chronic back pain iron deficiency anemia colon polyps PAST SURGICAL HISTORY: Bilateral knee replacements L1-L5 back surgery C1-C7 neck surgery Colonoscopy 07/2019. SOCIAL HISTORY: 20 pack smoker, former. Quit 25 years ago Denies alcohol or illicits Lives in [place]. Works part-time Very active. FAMILY HISTORY: Father: Colorectal cancer. at age 67 Mother: No medical issues. at age 83 ALLERGIES: Please see below. REVIEW OF SYSTEMS: 10 point ROS was completed, relevant findings are noted in the HPI HOME MEDICATIONS: Please see below. PHYSICAL EXAMINATION: VITAL SIGNS: please see below General: NAD, comfortable HEENT: PERRLA, EOMI, sclerae clear Neck: supple, normal ROM, no JVD Respiratory: lungs CTAB, no wheeze, no rales, no crackles CVS: RRR, normal S1, S2, no murmurs Abdo: soft, no masses, no hepatosplenomegaly, BS+, no rebound tenderness Extremities: R leg erythema and swelling, anterior knee dressings. L arm PICC line MSK: no joint deformities, normal ROM Neuro: no focal neuro deficits, moving all 4 extremities, CN2-12 intact. Strength 5/5 in all 4 extremities. No nystagmus. Psych: calm, cooperative, AAO x 3 LABORATORY DATA: See below. IMAGING: CXR (10/28/20): NO ACUTE PULMONARY DISEASE. MICROBIOLOGY: Please see below. 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 Admitted for anemia, hgb 6.5. pRBC transfusion started. EGD and colonoscopy . PLAN: Anemia - Hgb 6.5. on arrival, baseline 7-9 - stool trace guaic positive - EGD by Dr. Phillips 08/16/19: Z-line irregular 38 cm from incisors. Non bleeding erosive gastropathy. Patho negative for H pylori. No intestinal metaplasia. - Colonoscopy by Dr. Phillips 08/16/20: non bleeding internal hemorrhoids. Diverticulosis. small opolyps. Path tubular adenoma x 3. 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 -was DC on 10/09/20 -WBC wnl, remains afebrile - no worsening pain. -C/w nafcillin, pain control tylenol, tramadol -f/u outpatient ortho - Dr. Hernández. ID Dr. Umana. HTN - BP elevated 194/100 - resume home BB, hydralazine - monitor and titrate - please note: avoid CCBs as interact with rifampin GILDA on CKD Stage III -Baseline Cr 1.8, now 2.1 -possibly related to rifampin? -patient is being followed by Dr. Umana outpatient, would discuss tolerable levels - will not give excess fluids as receiving 2 units pRBC -avoid other nephrotoxic medications HLD -C/w home med Chronic back pain -C/w gabapentin, tramadol DVT px - SCDs, TEDs. - holding chemoppx in setting of anemia Vital Signs Vital Signs Date Time Temp Pulse Resp B/P (MAP) Pulse Ox O2 Delivery O2 Flow Rate FiO2 10/28/20 23:35 99.5 79 19 196/82 Room Air 10/28/20 23:19 95 Laboratory Data Labs 24H Laboratory Tests 2 10/28/20 18:48: Immature Granulocyte % (Auto) 0.3, Neutrophils (%) (Auto) 65.7, Lymphocytes (%) (Auto) 16.2L, Monocytes (%) (Auto) 10.1H, Eosinophils (%) (Auto) 7.2H, Basophils (%) (Auto) 0.5, Neutrophils # (Auto) 3.9, Lymphocytes # (Auto) 1.0L, Monocytes # (Auto) 0.6, Eosinophils # (Auto) 0.4, Basophils # (Auto) 0.0, Nucleated Red Blood Cells % (auto) 0.0, Prothrombin Time 14.8H, Prothromb Time International Ratio 1.13, Activated Partial Thromboplast Time 43.9H, Anion Gap 8, Glomerular Filtration Rate 31.7L, Calcium Level 9.0, Total Bilirubin 1.2H, Direct Bilirubin 0.1, Aspartate Amino Transf (AST/SGOT) 20, Alanine Aminotransferase (ALT/SGPT) 14, Alkaline Phosphatase 99, Total Creatine Kinase 136, Creatine Kinase MB 3.2, Creatine Kinase MB Relative Index 2.35, Troponin I < 0.02, Total Protein 7.3, Albumin 2.1L, Albumin/Globulin Ratio 0.4, Lipase 315, Thyroid Stimulating Hormone (TSH) 1.750, Free Thyroxine 0.71L 10/28/20 19:06: POC Glucose (Misc Panel) 123H, POC Sodium (Misc Panel) 143, POC Potassium (Misc Panel) 3.4L, POC Chloride (Misc Panel) 106, POC Total CO2 (Misc Panel) 28.0H, POC Blood Urea Nitrogen (Misc Panel 25, POC Ionized Calcium (Misc Panel) 4.8, POC Creatinine (Misc Panel) 2.5H, POC Hematocrit (Misc Panel) 24.0L 10/28/20 21:09: Immature Granulocyte % (Auto) 0.6, Neutrophils (%) (Auto) 64.2, Lymphocytes (%) (Auto) 16.4L, Monocytes (%) (Auto) 11.1H, Eosinophils (%) (Auto) 7.3H, Basophils (%) (Auto) 0.4, Neutrophils # (Auto) 3.2, Lymphocytes # (Auto) 0.8L, Monocytes # (Auto) 0.6, Eosinophils # (Auto) 0.4, Basophils # (Auto) 0.0, Nucleated Red Blood Cells % (auto) 0.0 10/28/20 22:42: Coronavirus (COVID-19)(PCR) NEGATIVE, Influenza Type A (RT-PCR) NEGATIVE, Influenza Type B (RT-PCR) NEGATIVE, Respiratory Syncytial Virus (PCR) NEGATIVE CBC/BMP Laboratory Tests 10/28/20 18:48 10/28/20 21:09 Microbiology Microbiology 10/28/20 Blood Culture, Received Pending 10/28/20 Blood Culture, Received Pending Home Medications Scheduled Aspirin (Aspirin EC) 81 Mg Tablet.dr, 81 MG PO BID Atenolol (Atenolol) 25 Mg Tab, 25 MG PO DAILY Calcitriol (Rocaltrol) 0.25 Mcg Capsule, 0.25 MCG PO 5XW MON THRU FRI Gabapentin (Gabapentin) 800 Mg Tab, 800 MG PO BID Hydralazine HCl (Hydralazine HCl) 10 Mg Tablet, 10 MG PO BID L.acidoph/L.bulg/B.bif/S.therm (Bacid Caplet) 1 Each Tablet, 1 TAB PO BIDWM Nafcillin Sod (Nafcillin Sodium) 1 Gm Vial, 1 DOSE IV ASDIRECTED CONTINUOUS VIA PICC LINE Rifampin (Rifampin) 150 Mg Capsule, 300 MG PO BID Simvastatin (Simvastatin) 20 Mg Tablet, 20 MG PO QHS Scheduled PRN Acetaminophen (Acetaminophen) 500 Mg Tablet, 1,000 MG PO Q6H PRN for PAIN / FE LETHA Tramadol HCl (Tramadol HCl) 50 Mg Tablet, 50 MG PO BID PRN for PAIN Allergies Coded Allergies: No Known Allergies (Verified , 08/10/19) A-FIB/CHADSVASC A-FIB History Current/History of A-Fib/PAF?: No Current PO Anticoag Therapy: No POLINKEVYCH,NARENDRA MD Oct 28, 2020 23:46
[2020-10-29] VITALS (17 sets, daily range): BP systolic 164–198; BP diastolic 80–100
[2020-10-29] MEDS: rifAMPin 150MG CAPSULE PO SCH ×3 (01:20→21:46)
[2020-10-29] MEDS ORDERED: **hydrALAZINE** 10 MG TAB PO SCH ×2 (01:20→09:00)
[2020-10-29] MEDS ORDERED: traMADol 50 MG TAB PO PRN (01:20)
[2020-10-29] MEDS ORDERED: NAFCILLIN SOD IV SCH ×2 (01:20→01:35)
[2020-10-29] MEDS ORDERED: NS IV SCH (01:35)
[2020-10-29] MEDS: GABAPENTIN 300 MG CAP PO SCH ×3 (01:46→21:46)
[2020-10-29] MEDS: SIMVASTATIN 20 MG TAB PO SCH ×2 (01:46→21:47)
[2020-10-29] MEDS: atenoloL 25 MG TAB PO SCH (01:47)
[2020-10-29] MEDS ORDERED: **hydrALAZINE HCL** 25 MG TAB PO ONE (05:25)
[2020-10-29 08:07] LABS: BASO % 0.6 % (0.0-1.0); EOS # 0.4 10^3/uL (0.0-0.5); EOS % 7.6 % (0.0-3.0); HEMATOCRIT 32.3 % (42.0-52.0); HEMOGLOBIN 10.4 g/dl (13.5-17.5); LYMPH # 0.9 10^3/uL (1.5-5.0); LYMPH % 19.2 % (24.0-44.0); MEAN CORPUSCULAR HEMOGLOBIN 31.5 pg (27.0-33.0); MEAN CORPUSCULAR HGB CONC 32.2 g/dl (32.0-36.5); MEAN CORPUSCULAR VOLUME 97.9 fl (80.0-96.0); MONO # 0.5 10^3/uL (0.0-0.8); NEUTROPHILS % 61.2 % (36.0-66.0); PLATELET COUNT, AUTOMATED 206 10^3/uL (150-450); WHITE BLOOD COUNT 4.9 10^3/uL (4.0-10.0)
[2020-10-29 08:30] LABS: ALBUMIN 1.8 GM/DL (3.2-5.2); BILIRUBIN,TOTAL 1.2 MG/DL (0.2-1.0); CALCIUM LEVEL 8.4 MG/DL (8.8-10.2); CREATININE FOR GFR 1.88 MG/DL (0.70-1.30); GLOMERULAR FILTRATION RATE 37.6 (>42); MAGNESIUM LEVEL 2.3 MG/DL (1.8-2.4); POTASSIUM SERUM 3.6 MEQ/L (3.5-5.1); TOTAL PROTEIN 6.6 GM/DL (6.4-8.2)
--- NOTE | 2020-10-29 08:56 | REP ---
INDICATION: r/o DVT COMPARISON: None. TECHNIQUE: Real time compression and duplex Doppler interrogation of the right lower extremity deep venous system is performed. FINDINGS: The right common femoral, superficial femoral and popliteal veins are fully compressible with transducer pressure and demonstrate normal spontaneous and phasic flow, without evidence of deep venous thrombosis. IMPRESSION: No evidence of deep venous thrombosis of the right lower extremity femoral popliteal venous system. <Electronically signed by Juan Carlos Prabhakar > 10/29/20 [id number]
[2020-10-29] MEDS: DOCUSATE SODIUM 100MG CAPSULE PO SCH ×2 (09:25→21:47)
[2020-10-29] MEDS: LACTOBACILLUS ACIDOPHILUS CAP (BACID) PO SCH ×2 (09:25→17:07)
[2020-10-29 13:11] LABS: C REACTIVE PROTEIN QUANTITATIV 6.87 MG/DL (0.00-0.30)
--- NOTE | 2020-10-29 13:32 | REP ---
INDICATION: infected joint COMPARISON: 02/12/2011. TECHNIQUE: There are four views. FINDINGS: There is a total knee arthroplasty as an interval change. The components are tightly applied and in satisfactory positions and alignment. There are no lytic, blastic or destructive skeletal changes. There are large ossifications in the soft tissues of the distal femur, not present previously, possibly myositis ossifications. . IMPRESSION: There are no lytic, blastic or destructive skeletal changes. Not the plastic components are tightly applied in satisfactory positions and alignment. 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 <Electronically signed by Juan Carlos Cota > 10/29/20 [id number]
[2020-10-29 13:45] LABS: ERYTHROCYTE SEDIMENTATION RATE 106 mm/hr (0-20)
--- NOTE | 2020-10-29 16:24 | CR.PDOC ---
General Date of Consultation: Oct 29, 2020 Consultation CHIEF COMPLAINT: reassess R TKA knee ~4 weeks s/p I&D liner change for periprosthetic infection. HISTORY OF PRESENT ILLNESS: 75-year-old male admitted for anemia by hospitalist service. HPI gleaned from hospitalist H&P. 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 His home health nurse oliva labs today, noted that his Hgb 6.7 (baseline 7-9). Repeat Hgb in ER was 6.5. Patient had trace guaic positive stool sample in ER. The patient denies melena, bright red blood per rectum, hematemesis, hemoptysis. He denies weakness, lightheadedness, chest pain, palpitations, n/v/d or abdominal pain. PAST MEDICAL HISTORY: R knee prosthetic joint infection (discharged 10/09/20). IV nafcillin continuous infusion 6 weeks (EOT 11/16/20) and PO rifampin BID. Total duration of therapy [address] Umana Aortic valve infective endocarditis. IV nafcillin via PICC (EOT 11/16/20) CAD HTN HLD CKD stage II chronic back pain iron deficiency anemia colon polyps PAST SURGICAL HISTORY: Bilateral knee replacements L1-L5 back surgery C1-C7 neck surgery Colonoscopy 07/2019. SOCIAL HISTORY: 20 pack smoker, former. Quit 25 years ago Denies alcohol or illicits Lives in [place]. Works part-time Very active. FAMILY HISTORY: Father: Colorectal cancer. at age 67 Mother: No medical issues. at age 83 REVIEW OF SYSTEMS: CONSTITUTIONAL: Denies. Pt states that he feels fine overall. Negative except for findings mentioned in HPI PHYSICAL EXAMINATION: VITAL SIGNS: Please see below. GENERAL APPEARANCE: Alert and Oriented to person, place, time. NAD. Comfortable. EXTREMITIES: Dressing in place to R leg incision. This was removed. Incision healing well with no signs of drainage or infection or bleeding. Erythema and edema and callor are present but have improved since the postop period. 2+ pitting edema and erythema to leg remain without worsening. No varus/valgus instability. No additional discomfort reported with ROM. Palpable posterior tibial pulse. LABORATORY DATA: Please see below. Xray: Xray imaging of the right TKA was independently reviewed by myself today. This does not demonstrate any obvious changes compared to prior films. There is no evidence of hw loosening or periprosthetic fracture. There is the persistent heterotopic bone within the soft tissues, which appears unchanged. ASSESSMENT/PLAN: S/P I&D R TKA with liner change for periprosthetic infection. Patient continues on IV anti biotics. 6 mos oral ABx planned thereafter. Appt with Dr. Umana of ID pending. No overt signs of failure of washout procedure. Will follow up on Inflammatory markers. Pt not unwell and feels "fine" - anemia detected on lab workup, otherwise pt reports being asymptomatic. The pt's knee exam appears to be improving from baseline prior to the washout. Pt is aware that retained hw and antibiotic therapy combined with washout may not be successful and there is always the chance for a possible 2 stage revision procedure. I do not see any urgent surgical issue at this time. Will continue to follow pt in the office and in hospital as needed. He was advised to contact the office if he has any concerns whatsoever. The R knee dressing may be discontinued. I have removed this. Thank you, David Tillman MD Vital Signs/I&O Vital Signs Date Time Temp Pulse Resp B/P (MAP) Pulse Ox O2 Delivery O2 Flow Rate FiO2 10/29/20 13:47 184/90 10/29/20 12:33 98.9 70 18 95 Room Air I&O- Last 24 Hours up to 6 AM 10/29/20 05:59 Intake Total 1420 ml Output Total 400 ml Balance 1020 ml Laboratory Data Labs 24H Laboratory Tests 2 10/28/20 18:48: Immature Granulocyte % (Auto) 0.3, Neutrophils (%) (Auto) 65.7, Lymphocytes (%) (Auto) 16.2L, Monocytes (%) (Auto) 10.1H, Eosinophils (%) (Auto) 7.2H, Basophils (%) (Auto) 0.5, Neutrophils # (Auto) 3.9, Lymphocytes # (Auto) 1.0L, Monocytes # (Auto) 0.6, Eosinophils # (Auto) 0.4, Basophils # (Auto) 0.0, Nucleated Red Blood Cells % (auto) 0.0, Prothrombin Time 14.8H, Prothromb Time International Ratio 1.13, Activated Partial Thromboplast Time 43.9H, Anion Gap 8, Glomerular Filtration Rate 31.7L, Calcium Level 9.0, Total Bilirubin 1.2H, Direct Bilirubin 0.1, Aspartate Amino Transf (AST/SGOT) 20, Alanine Aminotransferase (ALT/SGPT) 14, Alkaline Phosphatase 99, Total Creatine Kinase 136, Creatine Kinase MB 3.2, Creatine Kinase MB Relative Index 2.35, Troponin I < 0.02, Total Protein 7.3, Albumin 2.1L, Albumin/Globulin Ratio 0.4, Lipase 315, Thyroid Stimulating Hormone (TSH) 1.750, Free Thyroxine 0.71L 10/28/20 19:06: POC Glucose (Misc Panel) 123H, POC Sodium (Misc Panel) 143, POC Potassium (Misc Panel) 3.4L, POC Chloride (Misc Panel) 106, POC Total CO2 (Misc Panel) 28.0H, POC Blood Urea Nitrogen (Misc Panel 25, POC Ionized Calcium (Misc Panel) 4.8, POC Creatinine (Misc Panel) 2.5H, POC Hematocrit (Misc Panel) 24.0L 10/28/20 21:09: Immature Granulocyte % (Auto) 0.6, Neutrophils (%) (Auto) 64.2, Lymphocytes (%) (Auto) 16.4L, Monocytes (%) (Auto) 11.1H, Eosinophils (%) (Auto) 7.3H, Basophils (%) (Auto) 0.4, Neutrophils # (Auto) 3.2, Lymphocytes # (Auto) 0.8L, Monocytes # (Auto) 0.6, Eosinophils # (Auto) 0.4, Basophils # (Auto) 0.0, Nucleated Red Blood Cells % (auto) 0.0 10/28/20 22:42: Coronavirus (COVID-19)(PCR) NEGATIVE, Influenza Type A (RT-PCR) NEGATIVE, Influenza Type B (RT-PCR) NEGATIVE, Respiratory Syncytial Virus (PCR) NEGATIVE 10/29/20 07:33: Immature Granulocyte % (Auto) 0.4, Neutrophils (%) (Auto) 61.2, Lymphocytes (%) (Auto) 19.2L, Monocytes (%) (Auto) 11.0H, Eosinophils (%) (Auto) 7.6H, Basophils (%) (Auto) 0.6, Neutrophils # (Auto) 3.0, Lymphocytes # (Auto) 0.9L, Monocytes # (Auto) 0.5, Eosinophils # (Auto) 0.4, Basophils # (Auto) 0.0, Nucleated Red Blood Cells % (auto) 0.0, Erythrocyte Sedimentation Rate 106H, Anion Gap 6L, Glomerular Filtration Rate 37.6L, Calcium Level 8.4L, Magnesium Level 2.3, Total Bilirubin 1.2H, Aspartate Amino Transf (AST/SGOT) 19, Alanine Aminotransferase (ALT/SGPT) 12, Alkaline Phosphatase 93, C-Reactive Protein, Quantitative 6.87H, Total Protein 6.6, Albumin 1.8L, Albumin/Globulin Ratio 0.4 10/29/20 10:34: Lab Scanned Report Transfusion Record CBC/BMP Laboratory Tests 10/28/20 18:48 10/28/20 21:09 10/29/20 07:33 Microbiology Microbiology 10/28/20 Blood Culture, Received Pending 10/28/20 Blood Culture, Received Pending Allergies Coded Allergies: No Known Allergies (Verified , 08/10/19) Home Medications Scheduled Aspirin (Aspirin EC) 81 Mg Tablet.dr, 81 MG PO BID, (Reported) Atenolol (Atenolol) 25 Mg Tab, 25 MG PO DAILY, (Reported) Calcitriol (Rocaltrol) 0.25 Mcg Capsule, 0.25 MCG PO 5XW, (Reported) MON THRU FRI Gabapentin (Gabapentin) 800 Mg Tab, 800 MG PO BID, (Reported) Hydralazine HCl (Hydralazine HCl) 10 Mg Tablet, 10 MG PO BID, (Reported) L.acidoph/L.bulg/B.bif/S.therm (Bacid Caplet) 1 Each Tablet, 1 TAB PO BIDWM, (Reported) Nafcillin Sod (Nafcillin Sodium) 1 Gm Vial, 1 DOSE IV ASDIRECTED, (Reported) CONTINUOUS VIA PICC LINE Rifampin (Rifampin) 150 Mg Capsule, 300 MG PO BID, (Reported) Simvastatin (Simvastatin) 20 Mg Tablet, 20 MG PO QHS, (Reported) Scheduled PRN Acetaminophen (Acetaminophen) 500 Mg Tablet, 1,000 MG PO Q6H PRN for PAIN / FEVER, (Reported) Tramadol HCl (Tramadol HCl) 50 Mg Tablet, 50 MG PO BID PRN for PAIN, (Reported) DAVID TILLMAN MD Oct 29, 2020 16:24
--- NOTE | 2020-10-29 16:55 | IPNPDOC ---
Text Note Date of Service The patient was seen on 10/29/20. NOTE Subjective: Patient stated that he feeling better today. He denies any fever or chills. 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 Admitted for anemia, hgb 6.5. pRBC t ransfusion started. Iron deficient anemia Stool was positive for blood in ER Patient received 2 units of blood, hemoglobin 10.4 Iron supplementation ordered I talked to Dr. Hampton he recommended follow-up with GI in the outpatient settings, if patient continues to be stable EGD by Dr. Phillips 08/16/19: Z-line irregular 38 cm from incisors. Non bleeding erosive gastropathy. Patho negative for H pylori. No intestinal metaplasia. - Colonoscopy by Dr. Phillips 08/16/20: non bleeding internal hemorrhoids. Diverticulosis. small polyps. Path tubular adenoma x 3. Acute bacterial endocarditis -IV nafcillin continuous infusion, EOT 11/16/20 -PICC in place, L arm Patient doesn't have leukocytosis, afebrile Appreciate/agree with infectious diseases consult Status post right total knee arthroplasty with infected joint There was concern for cellulitis and spreading infection from infected joint Xray imaging of the right TKA did not show hard wire loosening or periprosthetic fracture Dr. Hernández consulted patient, he thinks no indication for surgical intervention for now Await blood culture, CRP and sedimentation rate Hypertensive urgency/hypertension Labetalol IV when necessary Hydralazine by mouth 20 mg every 8 hours GILDA on CKD Stage III Creatinine 1.8 is on his baseline Continue to monitor Hyperlipidemia Continue home meds Chronic back pain Continue gabapentin, tramadol VS,Fishbone, I+O VS, Fishbone, I+O Laboratory Tests 10/28/20 18:48 10/28/20 21:09 10/29/20 07:33 Vital Signs Date Time Temp Pulse Resp B/P (MAP) Pulse Ox O2 Delivery O2 Flow Rate FiO2 10/29/20 13:47 184/90 10/29/20 12:33 98.9 70 18 95 Room Air I&O- Last 24 Hours up to 6 AM 10/29/20 06:00 Intake Total 1420 ml Output Total 400 ml Balance 1020 ml ADAN BROOKS Oct 29, 2020 16:55
[2020-10-29] MEDS: IRON POLYSAC (NIFEREX) 150 MG CAP PO SCH (17:07)
[2020-10-29] MEDS: **hydrALAZINE** 10 MG TAB PO SCH ×2 (17:07→21:47)
--- NOTE | 2020-10-29 17:57 | ECGEPIP ---
[facility] - ED Test Date: 2020-10-28 Pat Name: KATHI WATERS Department: Room: - Gender: Male Tub Attendant: ED : 1945 Requested By: Zeeshan Alvarez Order Number: [id number] Reading MD: Bruna Renteria Measurements Intervals [place] Rate: 78 P: 47 CA: 184 QRS: -12 QRSD: 70 T: 2 QT: 368 QTc: 419 Interpretive Statements Normal sinus rhythm Minimal voltage criteria for LVH, may be normal variant ( R in aVL ) Septal infarct , age undetermined NSTTW abnormalities similar 10/02/20 Electronically Signed on 10-29-2020 17:57:02 EDT by Bruna Renteria
[2020-10-29] MEDS: LABETALOL 100MG/20ML VIAL IV PRN ×3 (18:51→23:46)
[2020-10-29] MEDS: NAFCILLIN SOD 2 GM in D5W MINI-BAG PLUS 50 ML IV SCH ×2 (18:52→23:44)
[2020-10-30] VITALS (18 sets, daily range): BP systolic 160–212; BP diastolic 77–110
[2020-10-30] MEDS: NAFCILLIN SOD 2 GM in D5W MINI-BAG PLUS 50 ML IV SCH ×6 (03:12→23:42)
[2020-10-30] MEDS: LABETALOL 100MG/20ML VIAL IV PRN ×5 (04:39→16:39)
[2020-10-30 05:45] LABS: BASO % 0.4 % (0.0-1.0); EOS # 0.3 10^3/uL (0.0-0.5); EOS % 5.7 % (0.0-3.0); HEMATOCRIT 30.6 % (42.0-52.0); HEMOGLOBIN 9.8 g/dl (13.5-17.5); LYMPH # 1.1 10^3/uL (1.5-5.0); LYMPH % 22.4 % (24.0-44.0); MEAN CORPUSCULAR HEMOGLOBIN 31.2 pg (27.0-33.0); MEAN CORPUSCULAR VOLUME 97.5 fl (80.0-96.0); MONO # 0.6 10^3/uL (0.0-0.8); MONO % 11.3 % (2.0-8.0); PLATELET COUNT, AUTOMATED 199 10^3/uL (150-450); RED BLOOD COUNT 3.14 10^6/uL (4.30-6.10); WHITE BLOOD COUNT 5.1 10^3/uL (4.0-10.0)
[2020-10-30 06:18] LABS: ALBUMIN 1.7 GM/DL (3.2-5.2); BILIRUBIN,TOTAL 1.3 MG/DL (0.2-1.0); CREATININE FOR GFR 1.91 MG/DL (0.70-1.30); MAGNESIUM LEVEL 2.2 MG/DL (1.8-2.4); POTASSIUM SERUM 3.1 MEQ/L (3.5-5.1); TOTAL PROTEIN 6.6 GM/DL (6.4-8.2)
[2020-10-30] MEDS ORDERED: POTASSIUM CHLORIDE 10 MEQ SR TABLET PO ONE (08:00)
[2020-10-30] MEDS: DOCUSATE SODIUM 100MG CAPSULE PO SCH ×2 (09:05→20:10)
[2020-10-30] MEDS: GABAPENTIN 300 MG CAP PO SCH ×2 (09:06→20:11)
[2020-10-30] MEDS: atenoloL 25 MG TAB PO SCH (09:06)
[2020-10-30] MEDS: IRON POLYSAC (NIFEREX) 150 MG CAP PO SCH (09:07)
[2020-10-30] MEDS: LACTOBACILLUS ACIDOPHILUS CAP (BACID) PO SCH ×2 (09:07→17:48)
[2020-10-30] MEDS: rifAMPin 150MG CAPSULE PO SCH ×2 (09:11→20:11)
[2020-10-30] MEDS: **hydrALAZINE** 10 MG TAB PO SCH ×4 (09:12→23:43)
--- NOTE | 2020-10-30 13:24 | IPNPDOC ---
Text Note Date of Service The patient was seen on 10/30/20. NOTE Subjective: No any acute events overnight. His blood pressure resistant to IV and by mouth medications during the morning, patient denied any headache, blurry vision. 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 Admitted for anemia, hgb 6.5. pRBC transfusion started. Iron deficient anemia Stool was positive for blood in ER Patient received 2 units of blood, hemoglobin 9.8 today Iron supplementation ordered I talked to Dr. Hampton he recommended follow-up with GI in the outpatient settings, if patient continues to be stable EGD by Dr. Phillips 08/16/19: Z-line irregular 38 cm from incisors. Non bleeding erosive gastropathy. Patho negative for H pylori. No intestinal metaplasia. - Colonoscopy by Dr. Phillips 08/16/20: non bleeding internal hemorrhoids. Diverticulosis. small polyps. Path tubular adenoma x 3. Acute bacterial endocarditis -IV nafcillin continuous infusion, EOT 11/16/20 -PICC in place, L arm Patient doesn't have leukocytosis, afebrile Appreciate/agree with infectious diseases consult Status post right total knee arthroplasty with infected joint There was concern for cellulitis and spreading infection from infected joint Xray imaging of the right TKA did not show hard wire loosening or periprosthetic fracture Dr. Hernández consulted patient, he thinks no indication for surgical intervention for now blood culture negative, CRP 6.8 and sedimentation rate 106 Hypertensive urgency/hypertension Labetalol IV when necessary I increased the dose of Hydralazine by mouth 20 mg to every 6 hours I added Norvasc, no interaction with rifampin We'll check BNP, we will check renin/aldosterone ratio Will check renal ultrasound GILDA on CKD Stage III Creatinine 1.9 is on his baseline Continue to monitor Hyperlipidemia Continue home meds Chronic back pain Continue gabapentin, tramadol VS,Fishbone, I+O VS, Fishbone, I+O Laboratory Tests 10/30/20 05:23 Vital Signs Date Time Temp Pulse Resp B/P (MAP) Pulse Ox O2 Delivery O2 Flow Rate FiO2 10/30/20 12:45 77 182/90 10/30/20 04:32 97.9 18 95 Room Air I&O- Last 24 Hours up to 6 AM 10/30/20 06:00 Intake Total 820 ml Output Total 1800 ml Balance -980 ml ADAN BROOKS DO Oct 30, 2020 13:24
[2020-10-30] MEDS ORDERED: FUROSEMIDE 40MG/4ML VIAL (J1940) IV SCH (15:00)
[2020-10-30] MEDS ORDERED: LIDOCAINE 1% MDV 20ML VIAL ONE (15:28)
--- NOTE | 2020-10-30 15:58 | REP ---
INDICATION: resistant hypertension. COMPARISON: 07/29/2017. TECHNIQUE: Multiple sonographic images of the kidneys. FINDINGS: The right kidney measures 9.0 x 4.9 x 4.6 cm. Left kidney measures 10.4 x 5.3 x 5.1 cm. The kidneys are in the low normal size range. Renal cortical echogenicity is normal bilaterally. There is no hydronephrosis on the right or the left. There are no renal calculi. There are no solid or cystic renal masses. Bladder: Ureteral jets could not be identified with color Doppler ultrasound. No bladder diverticula are identified. IMPRESSION: Right kidney is in the low normal size range. There is no hydronephrosis. Otherwise, negative renal ultrasound. <Electronically signed by Juan Carlos Cota > 10/30/20 1400
[2020-10-30] MEDS ORDERED: LABETALOL 200 MG TAB PO SCH (16:30)
[2020-10-30] MEDS: FUROSEMIDE 40MG/4ML VIAL (J1940) IV SCH ×2 (16:32→23:42)
[2020-10-30] MEDS ORDERED: SODIUM CHLORIDE 0.9% INJ 10 ML SYR IV PRN (16:50)
[2020-10-30] MEDS ORDERED: niCARdipine IV 40 MG in IV 1 EA IV SCH (17:00)
[2020-10-30] MEDS: SODIUM CHLORIDE 0.9% INJ 10 ML SYR IV SCH (18:00)
--- NOTE | 2020-10-30 18:06 | REP ---
INDICATION: ab therapy. COMPARISON: None. TECHNIQUE: The procedure was performed under the direct supervision of Dr. Prabhakar. The risks and benefits of the procedure were explained to the patient and informed consent was obtained. The right basilic vein was localized using ultrasound guidance. The skin was prepped and draped in a sterile fashion. 2% lidocaine was used as a local anesthetic. Using ultrasound guidance the basilic vein was cannulated and a 0.018 guidewire was inserted and advanced to the SVC using fluoroscopic guidance. The needle was removed and a 4.5 Portuguese dilator and peel-away sheath was inserted over the guide wire. A 4.5 Portuguese single lumen catheter was cut to length of 42 cm. The dilator was removed and the catheter was inserted over the guide wire with the tip ending in the SVC. The peel-away sheath was removed and the catheter was flushed with heparinized saline as per Hospital protocol. The catheter was affixed to the skin and a sterile dressing was applied. The patient tolerated the procedure well and there were no immediate complications. 0.4 minutes of fluoro time was utilized for this procedure. FINDINGS: None IMPRESSION: PICC line insertion right basilic vein with the tip ending in the SVC. <Electronically signed by Eduardo Lugo > 10/30/20 1623 <Electronically signed by Juan Carlos Prabhakar > 10/30/20 [id number]
--- NOTE | 2020-10-30 18:53 | REP ---
INDICATION: shortness of breath. COMPARISON: 10/28/2020. TECHNIQUE: SINGLE PORTABLE AP VIEW OF THE CHEST WAS PERFORMED. FINDINGS: THERE IS NO ACUTE INFILTRATE OR PULMONARY EDEMA. LUNGS ARE CLEAR. HEART IS NOT SIGNIFICANTLY ENLARGED. MEDIASTINAL SILHOUETTE IS UNREMARKABLE. THE VISUALIZED OSSEOUS STRUCTURES ARE INTACT.There is a right arm PICC line with the tip in the superior vena cava. IMPRESSION: NO ACUTE PULMONARY DISEASE. <Electronically signed by Juan Carlos Prabhakar > 10/30/20 [id number]
[2020-10-30] MEDS: ASPIRIN 81MG ENTERIC TABLET PO SCH (20:11)
[2020-10-30] MEDS: SIMVASTATIN 20 MG TAB PO SCH (20:11)
[2020-10-31] VITALS (11 sets, daily range): BP systolic 128–179; BP diastolic 64–86
[2020-10-31] MEDS: NAFCILLIN SOD 2 GM in D5W MINI-BAG PLUS 50 ML IV SCH ×6 (04:03→23:59)
[2020-10-31 04:19] LABS: BASO % 0.6 % (0.0-1.0); EOS # 0.5 10^3/uL (0.0-0.5); EOS % 8.9 % (0.0-3.0); HEMATOCRIT 32.4 % (42.0-52.0); HEMOGLOBIN 10.6 g/dl (13.5-17.5); LYMPH # 0.9 10^3/uL (1.5-5.0); LYMPH % 17.8 % (24.0-44.0); MEAN CORPUSCULAR HEMOGLOBIN 31.9 pg (27.0-33.0); MEAN CORPUSCULAR HGB CONC 32.7 g/dl (32.0-36.5); MEAN CORPUSCULAR VOLUME 97.6 fl (80.0-96.0); MONO # 0.6 10^3/uL (0.0-0.8); MONO % 11.7 % (2.0-8.0); NEUTROPHILS # 3.2 10^3/uL (1.5-8.5); NEUTROPHILS % 60.8 % (36.0-66.0); PLATELET COUNT, AUTOMATED 218 10^3/uL (150-450); RED BLOOD COUNT 3.32 10^6/uL (4.30-6.10); WHITE BLOOD COUNT 5.3 10^3/uL (4.0-10.0)
[2020-10-31 04:52] LABS: ALBUMIN 1.8 GM/DL (3.2-5.2); BILIRUBIN,TOTAL 1.3 MG/DL (0.2-1.0); CALCIUM LEVEL 8.8 MG/DL (8.8-10.2); CREATININE FOR GFR 1.93 MG/DL (0.70-1.30); GLOMERULAR FILTRATION RATE 36.5 (>42); MAGNESIUM LEVEL 1.9 MG/DL (1.8-2.4); POTASSIUM SERUM 3.2 MEQ/L (3.5-5.1); TOTAL PROTEIN 6.6 GM/DL (6.4-8.2)
[2020-10-31] MEDS ORDERED: MAG SULF 1GM/100ML (MAG RUN) 1 GM in IV 1 EA IV ONE (05:10)
[2020-10-31] MEDS ORDERED: POTASSIUM CHLORIDE 10 MEQ SR TABLET PO ONE ×2 (05:10→08:00)
[2020-10-31] MEDS: SODIUM CHLORIDE 0.9% INJ 10 ML SYR IV SCH ×2 (06:00→17:24)
[2020-10-31] MEDS: **hydrALAZINE** 10 MG TAB PO SCH ×4 (06:16→23:59)
[2020-10-31] MEDS: FUROSEMIDE 40MG/4ML VIAL (J1940) IV SCH ×3 (06:16→23:59)
[2020-10-31] MEDS: ASPIRIN 81MG ENTERIC TABLET PO SCH ×2 (08:08→20:34)
[2020-10-31] MEDS: rifAMPin 150MG CAPSULE PO SCH ×2 (08:09→20:34)
[2020-10-31] MEDS: IRON POLYSAC (NIFEREX) 150 MG CAP PO SCH (08:09)
[2020-10-31] MEDS: atenoloL 25 MG TAB PO SCH (08:11)
[2020-10-31] MEDS: LACTOBACILLUS ACIDOPHILUS CAP (BACID) PO SCH ×2 (08:11→17:22)
[2020-10-31] MEDS: GABAPENTIN 300 MG CAP PO SCH ×2 (08:12→20:34)
[2020-10-31] MEDS: DOCUSATE SODIUM 100MG CAPSULE PO SCH ×2 (09:00→20:46)
--- NOTE | 2020-10-31 11:56 | IPNPDOC ---
Text Note Date of Service The patient was seen on 10/31/20. NOTE Subjective: Patient blood pressure was stable overnight, he was not on the jessi ardipine drip, systolic blood pressure was around 150-160 Objective: GENERAL APPEARANCE: NAD HEENT: no scleral icterus, plus JVD, EOMI CARDIOVASCULAR: S1S2 LUNGS: CTA ABDOMEN: soft & not tender w palpitation MUSCULOSKELETAL: no cyanosis, no swelling INTEGUMENT: Right knee covered with dressing, mild erythema around with +1 swelling NEUROLOGICAL: cranial nerve function from 2-12 intact intact, follows commands, speech not dysarthric Assessment and plan Patient is 75 years old male with past mental history of 75-year-old male with PMH of CAD, hypertension, hyperlipidemia, chronic kidney disease stage III, chronic back pain, iron deficiency anemia, 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 Admitted for anemia, hgb 6.5. pRBC transfusion started. Iron deficient anemia Stool was positive for blood in ER Patient received 2 units of blood, hemoglobin 9.8 today Iron supplementation ordered I talked to Dr. Hampton he recommended follow-up with GI in the outpatient settings, if patient continues to be stable EGD by Dr. Phillips 08/16/19: Z-line irregular 38 cm from incisors. Non bleeding erosive gastropathy. Patho negative for H pylori. No intestinal metaplasia. - Colonoscopy by Dr. Phillips 08/16/20: non bleeding internal hemorrhoids. Diverticulosis. small polyps. Path tubular adenoma x 3. 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 Hernández consulted patient, he thinks no indication for surgical intervention for now blood culture negative, CRP 6.8 and sedimentation rate 106 Hypertensive urgency/hypertension Labetalol IV when necessary I increased the dose of Hydralazine by mouth 20 mg to every 6 hours I added Norvasc, no interaction with rifampin Await renin/aldosterone ratio renal ultrasound Right kidney is in the low normal size range. There is no hydronephrosis.Otherwise, negative renal ultrasound. BNP 5070 Acute CHF Patient has increased BNP, plus JVD Continue IV Lasix Patient developed 4.6 L of urine output for past 24 hours Await echo GILDA on CKD Stage III Creatinine 1.9 is on his baseline Continue to monitor Hyperlipidemia Continue home meds Chronic back pain Continue gabapentin, tramadol VS,Fishbone, I+O VS, Fishbone, I+O Laboratory Tests 10/31/20 04:10 Vital Signs Date Time Temp Pulse Resp B/P (MAP) Pulse Ox O2 Delivery O2 Flow Rate FiO2 10/31/20 08:10 76 162/82 10/31/20 08:00 98.2 97 Room Air 10/31/20 04:00 16 I&O- Last 24 Hours up to 6 AM 10/31/20 05:59 Intake Total 760 ml Output Total 3700 ml Balance -2940 ml ADAN BROOKS DO Oct 31, 2020 11:56
[2020-10-31] MEDS ORDERED: ATORVASTATIN 20 MG TAB PO SCH (21:00)
[2020-11-01] VITALS: BP 146/81
[2020-11-01 00:53] VITALS: BP 129/69
[2020-11-01] MEDS: NAFCILLIN SOD 2 GM in D5W MINI-BAG PLUS 50 ML IV SCH ×4 (03:33→15:01)
[2020-11-01 04:00] VITALS: BP 117/67
[2020-11-01 06:11] LABS: BASO % 0.5 % (0.0-1.0); EOS # 0.6 10^3/uL (0.0-0.5); EOS % 9.6 % (0.0-3.0); HEMATOCRIT 34.9 % (42.0-52.0); HEMOGLOBIN 11.3 g/dl (13.5-17.5); LYMPH % 15.2 % (24.0-44.0); MEAN CORPUSCULAR HEMOGLOBIN 31.7 pg (27.0-33.0); MEAN CORPUSCULAR HGB CONC 32.4 g/dl (32.0-36.5); MEAN CORPUSCULAR VOLUME 97.8 fl (80.0-96.0); MONO # 0.7 10^3/uL (0.0-0.8); MONO % 10.6 % (2.0-8.0); NEUTROPHILS % 63.6 % (36.0-66.0); PLATELET COUNT, AUTOMATED 250 10^3/uL (150-450); RED BLOOD COUNT 3.57 10^6/uL (4.30-6.10); WHITE BLOOD COUNT 6.2 10^3/uL (4.0-10.0)
[2020-11-01 06:26] LABS: ALBUMIN 1.8 GM/DL (3.2-5.2); BILIRUBIN,TOTAL 1.4 MG/DL (0.2-1.0); C REACTIVE PROTEIN QUANTITATIV 5.53 MG/DL (0.00-0.30); CALCIUM LEVEL 9.4 MG/DL (8.8-10.2); CREATININE FOR GFR 2.27 MG/DL (0.70-1.30); GLOMERULAR FILTRATION RATE 30.3 (>42); MAGNESIUM LEVEL 2.2 MG/DL (1.8-2.4); POTASSIUM SERUM 3.1 MEQ/L (3.5-5.1); TOTAL PROTEIN 6.8 GM/DL (6.4-8.2)
[2020-11-01] MEDS: SODIUM CHLORIDE 0.9% INJ 10 ML SYR IV SCH (06:26)
[2020-11-01] MEDS: **hydrALAZINE** 10 MG TAB PO SCH ×2 (06:27→12:00)
[2020-11-01] MEDS: FUROSEMIDE 40MG/4ML VIAL (J1940) IV SCH (06:27)
[2020-11-01 06:51] LABS: ERYTHROCYTE SEDIMENTATION RATE 94 mm/hr (0-20)
[2020-11-01] MEDS ORDERED: POTASSIUM CHLORIDE 10 MEQ SR TABLET PO ONE (07:20)
[2020-11-01 08:00] VITALS: BP 118/67
[2020-11-01] MEDS: GABAPENTIN 300 MG CAP PO SCH (08:27)
[2020-11-01] MEDS: LACTOBACILLUS ACIDOPHILUS CAP (BACID) PO SCH (08:27)
[2020-11-01] MEDS: ASPIRIN 81MG ENTERIC TABLET PO SCH (08:27)
[2020-11-01] MEDS: atenoloL 25 MG TAB PO SCH (08:29)
[2020-11-01] MEDS: IRON POLYSAC (NIFEREX) 150 MG CAP PO SCH (09:33)
[2020-11-01] MEDS: rifAMPin 150MG CAPSULE PO SCH (09:33)
[2020-11-01] MEDS ORDERED: AMLO1TAB25 PO (11:17)
[2020-11-01] MEDS ORDERED: NIFE15CA PO (11:17)
[2020-11-01] MEDS ORDERED: ATOR1TAB21 PO (11:17)
[2020-11-01] MEDS ORDERED: HYDR10TAB PO (11:17)
[2020-11-01 12:00] VITALS: BP 104/62
[2020-11-01] MEDS ORDERED: FURO40TA2 PO (12:19)
--- NOTE | 2020-11-01 20:38 | DS.PDOC ---
Discharge Summary General Date of Admission Oct 28, 2020 at 23:43 Date of Discharge 11/01/20 Discharge Summary PROCEDURES PERFORMED DURING STAY: [None]. 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 Admitted for anemia, hgb 6.5. pRBC transfusion started. HOSPITAL COURSE: During the hospital stay the following issues addressed Iron deficient anemia Stool was positive for blood in ER Patient received 2 units of blood, hemoglobin 9.8 today Iron supplementation ordered I talked to Dr. Hampton he recommended follow-up with GI in the outpatient settings, if patient continues to be stable EGD by Dr. Phillips 08/16/19: Z-line irregular 38 cm from incisors. Non bleeding erosive gastropathy. Patho negative for H pylori. No intestinal metaplasia. - Colonoscopy by Dr. Phillips 08/16/20: non bleeding internal hemorrhoids. Diverticulosis. small polyps. Path tubular adenoma x 3. 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 Hernández consulted patient, he thinks no indication for surgical intervention for now blood culture negative, CRP 6.8 and sedimentation rate 106 Hypertensive urgency/hypertension Labetalol IV when necessary I increased the dose of Hydralazine by mouth 20 mg to every 6 hours I added Norvasc, no interaction with rifampin Await renin/aldosterone ratio renal ultrasound Right kidney is in the low normal size range. There is no hydronephrosis.Otherwise, negative renal ultrasound. BNP 5070 Acute CHF Patient has increased BNP, plus JVD Continue IV Lasix Patient developed 4.6 L of urine output for past 24 hours Await echo GILDA on CKD Stage III Creatinine 1.9 is on his baseline Continue to monitor Hyperlipidemia Continue home meds Chronic back pain Continue gabapentin, tramadol DISCHARGE MEDICATIONS: Please see below. ALLERGIES: Please see below. PHYSICAL EXAMINATION ON DISCHARGE: VITAL SIGNS: Please see below. GENERAL APPEARANCE: NAD HEENT: no scleral icterus, plus JVD, EOMI CARDIOVASCULAR: S1S2 LUNGS: CTA ABDOMEN: soft & not tender w palpitation MUSCULOSKELETAL: no cyanosis, no swelling INTEGUMENT: Right knee covered with dressing, mild erythema around with +1 swelling NEUROLOGICAL: cranial nerve function from 2-12 intact intact, follows commands, speech not dysarthric LABORATORY DATA: Please see below. PROGNOSIS: Fair ACTIVITY: [As tolerated]. DIET: Cardiac DISPOSITION: Home Health Service. 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 TIME SPENT ON DISCHARGE: 40minutes. Vital Signs/I&Os Vital Signs Date Time Temp Pulse Resp B/P (MAP) Pulse Ox O2 Delivery O2 Flow Rate FiO2 11/01/20 12:00 99.1 74 16 104/62 (76) 97 Room Air I&O- Last 24 Hours up to 6 AM 11/01/20 06:00 Intake Total 1040 ml Output Total 2575 ml Balance -1535 ml Laboratory Data Labs 24H Laboratory Tests 2 11/01/20 05:38: Immature Granulocyte % (Auto) 0.5, Neutrophils (%) (Auto) 63.6, Lymphocytes (%) (Auto) 15.2L, Monocytes (%) (Auto) 10.6H, Eosinophils (%) (Auto) 9.6H, Basophils (%) (Auto) 0.5, Neutrophils # (Auto) 4.0, Lymphocytes # (Auto) 1.0L, Monocytes # (Auto) 0.7, Eosinophils # (Auto) 0.6H, Basophils # (Auto) 0.0, Nucleated Red Blood Cells % (auto) 0.0, Erythrocyte Sedimentation Rate 94H, Anion Gap 7L, Glomerular Filtration Rate 30.3L, Calcium Level 9.4, Magnesium Level 2.2, Total Bilirubin 1.4H, Aspartate Amino Transf (AST/SGOT) 18, Alanine Aminotransferase (ALT/SGPT) 11L, Alkaline Phosphatase 100, C-Reactive Protein, Quantitative 5.53H, Total Protein 6.8, Albumin 1.8L, Albumin/Globulin Ratio 0.4 CBC/BMP Laboratory Tests 11/01/20 05:38 Microbiology Microbiology 10/28/20 Blood Culture - Preliminary, Resulted No Growth after 72 hours. All specime... 10/28/20 Blood Culture - Preliminary, Resulted No Growth after 72 hours. All specime... Discharge Medications Scheduled Amlodipine Besylate (Amlodipine Besylate) 10 Mg Tablet, 10 MG PO DAILY Aspirin (Aspirin EC) 81 Mg Tablet.dr, 81 MG PO BID, (Reported) Atenolol (Atenolol) 25 Mg Tab, 25 MG PO DAILY, (Reported) Atorvastatin Calcium (Atorvastatin Calcium) 20 Mg Tablet, 40 MG PO QHS Calcitriol (Rocaltrol) 0.25 Mcg Capsule, 0.25 MCG PO 5XW, (Reported) MON THRU FRI Furosemide (Furosemide) 40 Mg Tablet, 1 TAB PO DAILY Gabapentin (Gabapentin) 800 Mg Tab, 800 MG PO BID, (Reported) Hydralazine HCl (Hydralazine HCl) 10 Mg Tablet, 10 MG PO TID Iron Ag,Ps/C/Fa6/B12/Zn/SA/Sto (Niferex Tablet) 1 Each Tablet, 150 MG PO DAILY L.acidoph/L.bulg/B.bif/S.therm (Bacid Caplet) 1 Each Tablet, 1 TAB PO BIDWM, (Reported) Nafcillin Sod (Nafcillin Sodium) 1 Gm Vial, 1 DOSE IV ASDIRECTED, (Reported) CONTINUOUS VIA PICC LINE Rifampin (Rifampin) 150 Mg Capsule, 300 MG PO BID, (Reported) Scheduled PRN Acetaminophen (Acetaminophen) 500 Mg Tablet, 1,000 MG PO Q6H PRN for PAIN / FEVER, (Reported) Tramadol HCl (Tramadol HCl) 50 Mg Tablet, 50 MG PO BID PRN for PAIN, (Reported) Allergies Coded Allergies: No Known Allergies (Verified , 08/10/19) ADAN BROOKS DO Nov 01, 2020 20:38
[2020-11-02] MEDS ORDERED: FUROSEMIDE 40MG/4ML VIAL (J1940) IV SCH (09:00)
--- NOTE | 2020-11-04 08:09 | ECHO ---
DATE OF PROCEDURE: 10/31/2020 Age: 75 Gender: Male REFERRING PHYSICIAN: Jose Aponte DO. INDICATION: Congestive heart failure. MEASUREMENTS: IVS 1.4 cm LV 4.3 cm LVPW 1.2 cm LA 3.4 cm Aorta 3.3 cm Mitral E wave velocity 42 cm/s Mitral A wave 69 cm/s E prime septal 5.2 cm/s E prime lateral 5.3 cm/s FINDINGS: This study is of acceptable technical quality. The patient is in sinus rhythm. Left ventricle is normal size. There is mild left ventricular hypertrophy. Overall normal LV systolic function, estimated LVEF approximately 65%. Right ventricle also appears to have normal size and systolic function. Both atria appear normal. The aortic valve is sclerotic. On some views, it appears that there might be vegetation attached to likely the left coronary leaflet, but the visualization was limited. Mitral, tricuspid, and pulmonic valves appear normal. No pericardial effusion is noted. Inferior vena cava is of normal size and appropriately collapses with inspiration indicative of normal central venous pressure. The aortic root is normal. Doppler interrogation of the aortic valve reveals no stenosis or insufficiency. There is trivial mitral insufficiency and mild tricuspid insufficiency. Calculated pulmonary artery pressure is around 40 mmHg corresponding to [id number] pulmonary hypertension. Mitral inflow pattern and tissue Doppler imaging of the mitral annulus revealed grade 1 diastolic dysfunction. CONCLUSIONS: 1. Study is of acceptable technical quality, underlying sinus rhythm. 2. Normal LV size, mild LVH, preserved LV systolic function, and grade 1 diastolic dysfunction. 3. Sclerosis of the aortic valve, suspicion for small vegetation. 4. Trace mitral insufficiency. 5. Mild tricuspid insufficiency. 6. Likely normal central venous pressure and approximately mild or [id number] pulmonary hypertension. 7. Compared to transesophageal echocardiogram from 10/06/2020 and transthoracic echocardiogram from 10/04/2020, there appears to be fairly minimal change of persistent suspicion for aortic vegetation, but no valvular destruction. MTDD
== END 2020-11-01 17:20 | disposition home health service (06) | DRG 811 ==
LOC: M ED 16:34 → M ED INP 23:43 → M PCU 10-29 00:53 → ENRESERV 10-29 01:00 → M ICU 10-30 17:29 → M PCU 11-01 00:54
PROVIDERS: ADMIT Family Medicine; ATTEND Internal Medicine
PROC: 30233N1 Transfusion of Nonautologous Red Blood Cells into Peripheral Vein, Percutaneous Approach (ICD-10-PCS; 2020-10-28)
PROC: 02HV33Z Insertion of Infusion Device into Superior Vena Cava, Percutaneous Approach (ICD-10-PCS; principal; 2020-10-30 16:00)
DX: D50.9 Iron deficiency anemia, unspecified (principal); I33.0 Acute and subacute infective endocarditis; N13.0 Hydronephrosis with ureteropelvic junction obstruction; I13.0 Hypertensive heart and chronic kidney disease with heart failure and stage 1 through stage 4 chronic kidney disease, or unspecified chronic kidney disease; E78.5 Hyperlipidemia, unspecified; I25.10 Atherosclerotic heart disease of native coronary artery without angina pectoris; T84.53XD Infection and inflammatory reaction due to internal right knee prosthesis, subsequent encounter; I50.9 Heart failure, unspecified; Y83.1 Surgical operation with implant of artificial internal device as the cause of abnormal reaction of the patient, or of later complication, without mention of misadventure at the time of the procedure; I16.0 Hypertensive urgency; M54.9 Dorsalgia, unspecified; Z96.651 Presence of right artificial knee joint; Z86.010 Personal history of colon polyps; Z87.891 Personal history of nicotine dependence; Z20.822 Contact with and (suspected) exposure to COVID-19; Z79.82 Long term (current) use of aspirin; Z79.899 Other long term (current) drug therapy

== ENCOUNTER → 2020-11-04 | Outpatient (REF) | payer MEDICARE ==
[~2020-11-04] MED LIST changes: +AMLO1TAB25 PO; +ASPI-161 PO; +ATOR1TAB21 PO; +BACITAB PO; +FURO40TA2 PO; +NIFE15CA PO; +[UNRECOGNIZED DRUG - CODE] IV
[2020-11-04 16:38] LABS: HEMATOCRIT 34.6 % (42.0-52.0); HEMOGLOBIN 11.1 g/dl (13.5-17.5); MEAN CORPUSCULAR HEMOGLOBIN 31.5 pg (27.0-33.0); MEAN CORPUSCULAR HGB CONC 32.1 g/dl (32.0-36.5); MEAN CORPUSCULAR VOLUME 98.3 fl (80.0-96.0); PLATELET COUNT, AUTOMATED 315 10^3/uL (150-450); RED BLOOD COUNT 3.52 10^6/uL (4.30-6.10); WHITE BLOOD COUNT 7.5 10^3/uL (4.0-10.0)
[2020-11-04 17:06] LABS: ALBUMIN 2.2 GM/DL (3.2-5.2); BILIRUBIN,TOTAL 1.8 MG/DL (0.2-1.0); C REACTIVE PROTEIN QUANTITATIV 8.56 MG/DL (0.00-0.30); CALCIUM LEVEL 9.3 MG/DL (8.8-10.2); GLOMERULAR FILTRATION RATE 21.9 (>42); POTASSIUM SERUM 3.5 MEQ/L (3.5-5.1); TOTAL PROTEIN 7.8 GM/DL (6.4-8.2)
[2020-11-04 17:08] LABS: ERYTHROCYTE SEDIMENTATION RATE 98 mm/hr (0-20)
== END ==
LOC: M LAB REF 15:34
PROVIDERS: ATTEND Internal Medicine Infectious Disease
DX: A49.01 Methicillin susceptible Staphylococcus aureus infection, unspecified site (principal); I33.9 Acute and subacute endocarditis, unspecified; T84.53XD Infection and inflammatory reaction due to internal right knee prosthesis, subsequent encounter
CPT/HCPCS: 80053; 85027; 85652; 86140; G0463

== ENCOUNTER → 2020-11-11 | Outpatient (REF) | payer MEDICARE ==
[2020-11-11 15:27] LABS: HEMOGLOBIN 9.3 g/dl (13.5-17.5); MEAN CORPUSCULAR HEMOGLOBIN 31.1 pg (27.0-33.0); MEAN CORPUSCULAR VOLUME 100.3 fl (80.0-96.0); PLATELET COUNT, AUTOMATED 245 10^3/uL (150-450); RED BLOOD COUNT 2.99 10^6/uL (4.30-6.10); WHITE BLOOD COUNT 6.5 10^3/uL (4.0-10.0)
[2020-11-11 15:54] LABS: ERYTHROCYTE SEDIMENTATION RATE 128 mm/hr (0-20)
[2020-11-11 16:00] LABS: ALBUMIN 1.8 GM/DL (3.2-5.2); BILIRUBIN,TOTAL 1.5 MG/DL (0.2-1.0); C REACTIVE PROTEIN QUANTITATIV 6.68 MG/DL (0.00-0.30); CREATININE FOR GFR 2.13 MG/DL (0.70-1.30); GLOMERULAR FILTRATION RATE 32.6 (>42); POTASSIUM SERUM 3.9 MEQ/L (3.5-5.1); TOTAL PROTEIN 6.8 GM/DL (6.4-8.2)
== END ==
LOC: M LAB REF 14:40
PROVIDERS: ATTEND Internal Medicine Infectious Disease
DX: T84.53XA Infection and inflammatory reaction due to internal right knee prosthesis, initial encounter (principal); A49.01 Methicillin susceptible Staphylococcus aureus infection, unspecified site; Y83.1 Surgical operation with implant of artificial internal device as the cause of abnormal reaction of the patient, or of later complication, without mention of misadventure at the time of the procedure; Z96.651 Presence of right artificial knee joint

== ENCOUNTER → 2020-11-18 | Outpatient (REF) | payer MEDICARE ==
[2020-11-18 15:26] LABS: HEMATOCRIT 30.4 % (42.0-52.0); HEMOGLOBIN 9.6 g/dl (13.5-17.5); MEAN CORPUSCULAR HEMOGLOBIN 31.4 pg (27.0-33.0); MEAN CORPUSCULAR HGB CONC 31.6 g/dl (32.0-36.5); MEAN CORPUSCULAR VOLUME 99.3 fl (80.0-96.0); PLATELET COUNT, AUTOMATED 235 10^3/uL (150-450); RED BLOOD COUNT 3.06 10^6/uL (4.30-6.10); WHITE BLOOD COUNT 5.9 10^3/uL (4.0-10.0)
[2020-11-18 15:48] LABS: ERYTHROCYTE SEDIMENTATION RATE 125 mm/hr (0-20)
[2020-11-18 16:06] LABS: ALBUMIN 2.1 GM/DL (3.2-5.2); BILIRUBIN,TOTAL 1.7 MG/DL (0.2-1.0); C REACTIVE PROTEIN QUANTITATIV 7.27 MG/DL (0.00-0.30); CALCIUM LEVEL 8.8 MG/DL (8.8-10.2); CREATININE FOR GFR 2.4 MG/DL (0.70-1.30); GLOMERULAR FILTRATION RATE 28.4 (>42); POTASSIUM SERUM 4.3 MEQ/L (3.5-5.1); TOTAL PROTEIN 7.7 GM/DL (6.4-8.2)
== END ==
LOC: M SHH 14:58
PROVIDERS: ATTEND Internal Medicine Infectious Disease
DX: A49.01 Methicillin susceptible Staphylococcus aureus infection, unspecified site (principal); I33.9 Acute and subacute endocarditis, unspecified; T84.53XA Infection and inflammatory reaction due to internal right knee prosthesis, initial encounter; Z96.651 Presence of right artificial knee joint; Y83.1 Surgical operation with implant of artificial internal device as the cause of abnormal reaction of the patient, or of later complication, without mention of misadventure at the time of the procedure

== ENCOUNTER → 2020-11-25 | Outpatient (REF) | payer MEDICARE ==
[2020-11-25 16:02] LABS: HEMATOCRIT 30.7 % (42.0-52.0); HEMOGLOBIN 10.1 g/dl (13.5-17.5); MEAN CORPUSCULAR HEMOGLOBIN 32.7 pg (27.0-33.0); MEAN CORPUSCULAR HGB CONC 32.9 g/dl (32.0-36.5); MEAN CORPUSCULAR VOLUME 99.4 fl (80.0-96.0); PLATELET COUNT, AUTOMATED 265 10^3/uL (150-450); RED BLOOD COUNT 3.09 10^6/uL (4.30-6.10); WHITE BLOOD COUNT 5.8 10^3/uL (4.0-10.0)
[2020-11-25 16:41] LABS: ALBUMIN 2.3 GM/DL (3.2-5.2); BILIRUBIN,TOTAL 1.7 MG/DL (0.2-1.0); C REACTIVE PROTEIN QUANTITATIV 4.53 MG/DL (0.00-0.30); CALCIUM LEVEL 9.6 MG/DL (8.8-10.2); CREATININE FOR GFR 2.18 MG/DL (0.70-1.30); GLOMERULAR FILTRATION RATE 31.7 (>42); POTASSIUM SERUM 4.5 MEQ/L (3.5-5.1); TOTAL PROTEIN 7.9 GM/DL (6.4-8.2)
[2020-11-25 18:01] LABS: ERYTHROCYTE SEDIMENTATION RATE 129 mm/hr (0-20)
== END ==
LOC: M SHH 15:48
PROVIDERS: ATTEND Internal Medicine Infectious Disease
DX: A49.01 Methicillin susceptible Staphylococcus aureus infection, unspecified site (principal); I33.9 Acute and subacute endocarditis, unspecified

== ENCOUNTER → 2020-11-27 | Outpatient (REF) | payer MEDICARE ==
[2020-11-28 18:21] LABS: IRON (FE) 74 UG/DL (65-175); PERCENT SATURATION 52.5 % (19.7-50.0); TOTAL IRON BINDING CAPACITY 141 UG/DL (250-450)
[2020-11-28 18:31] LABS: FOLATE > 24.0 NG/ML; VITAMIN B12 LEVEL 761 PG/ML
== END ==
LOC: M LAB REF 16:55
PROVIDERS: ATTEND Nurse Practitioner Family
DX: D50.9 Iron deficiency anemia, unspecified (principal); D64.9 Anemia, unspecified

== ENCOUNTER → 2020-12-02 | Outpatient (REF) | payer MEDICARE ==
[~2020-12-02] MED LIST changes: +CYAN100049 PO; +HEPA1INJ5 IV
[2020-12-02 14:11] LABS: HEMATOCRIT 31.2 % (42.0-52.0); HEMOGLOBIN 9.6 g/dl (13.5-17.5); MEAN CORPUSCULAR HEMOGLOBIN 31.3 pg (27.0-33.0); MEAN CORPUSCULAR HGB CONC 30.8 g/dl (32.0-36.5); MEAN CORPUSCULAR VOLUME 101.6 fl (80.0-96.0); PLATELET COUNT, AUTOMATED 270 10^3/uL (150-450); RED BLOOD COUNT 3.07 10^6/uL (4.30-6.10); WHITE BLOOD COUNT 5.9 10^3/uL (4.0-10.0)
[2020-12-02 14:36] LABS: ERYTHROCYTE SEDIMENTATION RATE 106 mm/hr (0-20)
[2020-12-02 14:47] LABS: CALCIUM LEVEL 9.8 MG/DL (8.8-10.2); CREATININE FOR GFR 2.12 MG/DL (0.70-1.30); GLOMERULAR FILTRATION RATE 32.8 (>42); POTASSIUM SERUM 4.5 MEQ/L (3.5-5.1)
[2020-12-02 14:48] LABS: ALBUMIN 2.3 GM/DL (3.2-5.2); BILIRUBIN,TOTAL 1.4 MG/DL (0.2-1.0); C REACTIVE PROTEIN QUANTITATIV 4.73 MG/DL (0.00-0.30); TOTAL PROTEIN 7.6 GM/DL (6.4-8.2)
== END ==
LOC: M SHH 12:48
PROVIDERS: ATTEND Internal Medicine Infectious Disease
DX: A49.01 Methicillin susceptible Staphylococcus aureus infection, unspecified site (principal); I33.9 Acute and subacute endocarditis, unspecified

== ENCOUNTER → 2020-12-05 | Outpatient (CLI) | payer MEDICARE | LOC: M LABSMTC 11:57 | PROVIDERS: ATTEND Anesthesiology | DX: Z01.812 Encounter for preprocedural laboratory examination (principal); Z20.822 Contact with and (suspected) exposure to COVID-19 ==

== ENCOUNTER 2020-12-10 12:19 | Inpatient (IN) | payer MEDICARE ==
[~2020-12-10] VITALS: Ht 160 cm; Wt 64.4 kg
[~2020-12-10 12:19] MED LIST changes: +ACETAMINOPHEN 500 MG TAB PO ONE; +LIDOCAINE 1% MDV 20ML VIAL SQ PRN; +LR 1,000 ML IV ONE; +NAPROXEN 250 MG TAB PO ONE; +NS 1,000 ML IV SCH; +PREGABALIN 25 MG CAP (LYRICA) PO ONE; +ROPIVA 125MG/EPINEPH 0.25MG/CLONID 40MCG/KETOR 15MG IN NS 50ML SYRINGE XX ONE; +dexameTHASONE 4 MG/ML 1ML VIAL (J1100 PER 1MG) IV ONE
[2020-12-10] MEDS ORDERED: TRANEXAMIC ACID INJection 1,000 MG in NS 60 ML IV ONE (13:00)
[2020-12-10] MEDS ORDERED: SODIUM CHLORIDE 0.9% INJ 10 ML SYR IV PRN ×2 (14:05→19:45)
[2020-12-10] MEDS ORDERED: TRANEXAMIC ACID 100 MG/ML 10ML VIAL As Ordered ONE ×2 (15:08→15:09)
[2020-12-10] MEDS ORDERED: VANCOMYCIN 1000MG/20ML VIAL As Ordered ONE ×3 (15:37→16:48)
[2020-12-10] MEDS ORDERED: TOBRAMYCIN SULF 1.2 GM VIAL As Ordered ONE (15:58)
[2020-12-10] MEDS ORDERED: MIDAZOLAM INJ 2MG/2ML VIAL (J2250 PER 1MG) As Ordered ONE (15:59)
[2020-12-10] MEDS ORDERED: SUGAMMADEX SODIUM 500 MG/5 ML VIAL (BRIDION) As Ordered ONE (15:59)
[2020-12-10] MEDS ORDERED: fentaNYL 250 MCG/5 ML INJECTION (J3010) As Ordered ONE (15:59)
[2020-12-10] MEDS ORDERED: METOCLOPRAMIDE INJ 10MG/2ML VIAL (J2765 PER 1) As Ordered ONE (15:59)
[2020-12-10] MEDS ORDERED: ROCURONIUM BROMIDE 50 MG/5 ML VIAL As Ordered ONE (15:59)
[2020-12-10] MEDS ORDERED: dexameTHASONE 4 MG/ML 1ML VIAL (J1100 PER 1MG) As Ordered ONE (15:59)
[2020-12-10] MEDS ORDERED: ONDANSETRON 4MG/2ML VIAL As Ordered ONE (15:59)
[2020-12-10] MEDS ORDERED: LIDOCAINE 2% 100MG/5ML SDV (FOR ANES.) As Ordered ONE (15:59)
[2020-12-10] MEDS ORDERED: propofoL 200 MG/20 ML VIAL As Ordered ONE (15:59)
[2020-12-10] MEDS ORDERED: ePHEDrine SULFATE 25 MG/5 ML(5MG/ML) SYRINGE As Ordered ONE (16:10)
[2020-12-10] MEDS ORDERED: ePHEDrine INJ 50 MG/ML VIAL As Ordered ONE (16:14)
[2020-12-10] MEDS ORDERED: PHENYLephrine 500MCG 5ML (100MCG/ML) SYRINGE As Ordered ONE (18:33)
--- NOTE | 2020-12-10 19:31 | ROOPDOC ---
[facility] Report Of Operation Report of Operation DATE OF PROCEDURE: 12/10/20 PREPROCEDURE DIAGNOSES: Infected right total knee replacement POSTPROCEDURE DIAGNOSES: Infected right total knee replacement PROCEDURE: Excision and revision of part of the proximal scar tissue approximately 3.5 cm Irrigation and debridement, right knee synovium Removal of femoral and tibial hardware, right total knee replacement as well as patellar hardware Placement of incisional Prevena wound vac. SURGEON: David Tillman MD PORTFOLIO ANALYST: ANESTHESIA: Gen. anesthetic ESTIMATED BLOOD LOSS: Approximately 150 mL . COMPLICATIONS: No known complications REMARKS: The patient has been on IV antibiotics for approximately 8 weeks associated with endocarditis and the infected right total knee arthroplasty. He is inflammatory markers were persistently elevated and it was deemed that the washer liner change had failed in terms of treating this infected total knee replacement. The decision was made to perform a two-stage revision. He has been on IV nafcillin and oral rifampin medications. Of note, the patient does have a right foot drop foot. Tourniquet time: 2 hours PROCEDURE NOTE: The patient was seen in the preoperative area and the right lower extremity was marked. There has been no significant change in his medical history. Components: Stimulant beads with vancomycin powder Simplex antibiotic with tobramycin 5 packages Sure space femoral, 44 mm AP, 67 mm medial to lateral medium femoral mold Sure Space Tibial 45 mm AP 70 mm medial to lateral medium mold DESCRIPTION OF PROCEDURE: The patient was brought to the operating room and a general anesthetic was induced after a procedural pause was taken. Was appropriately positioned supine. The right lower extremity was washed with a chlorhexidine brush followed by 2 alcohol swabs followed by a hydrogen peroxide wash of the skin. He then had 2 chlorhexidine sterile preps followed by a sterile prep and drape, and a third chlorhexidine sterile prep. A surgical safety checklist, and possible was performed. The skin marker. We used overlying the existing incision. This was incised along its length and an approximate 3.5 cm area proximally was ellipsed out and discarded. There is evidence that the suprapatellar quadriceps repair had dehisced and there was evidence of connection with the joint. There was some discolored fluid within the joint space that was cloudy, synovial type fluid. Of note, the patient received 1 g TX a IV prior to the incision. IV antibiotics were held until the cultures were taken and then administered. The incision was carried down through the skin and subcutaneous tissue. Electrocautery was used for hemostasis. The arthrotomy was completed using the electrocautery. Of note, throughout the procedure, 5 times ortho cultures were sent. These included samples from underneath the femoral component and underneath the tibial component. The patella was everted with soft tissue releases. The Monreal was used for mechanical debridement of the synovium scraping away the soft tissue over all surfaces of the synovium. This was an extensive mechanical debridement using the Monreal. Electrocautery was also used for sharp removal of offending tissue. An osteotome was used to break the post of the polyethylene to remove the pin so that this could be removed. The polyethylene liner was removed with a curved osteotome and the locking mechanism was also removed. Small curved osteotomes and a flexible osteotome were used to work the edges around the femur and this was removed with an impactor. There was minimal bone loss to the surface of the femur. This was debrided with the Monreal and the rongeur to remove any cement and soft tissue debris. Attention was turned to the tibial component. There was a step augment on the me dial side. The rigid osteotomes were used to break up the bone cement interface and using stacked straight osteotomes I was able to lever the tibial component up and remove it with minimal bone loss. A sagittal saw was used to remove some of the cement from the surface of the medial tibial plateau step area and rongeur was also used. Several curettes and picks and cement removal devices were used to remove the central tibial canal cement. This was a prolonged process. An osteotome was then used to remove the patellar component. A sagittal saw was used to remove a millimeter of the bone cement interface. A curet was used to remove some of the cement and plastic plug material from the lug holes. Soft tissue was further removed with electrocautery and the curet. And irrigation using 3 L of normal sterile saline was carried out. There was also a debridement and irrigation with a dilute Betadine solution which was mixed with hydrogen peroxide that was immediately washed out with another liter or so of normal sterile saline. Stimulant beads were then mixed with vancomycin powder. These were later added to the tibial canal and to the tibiofemoral joint space. Antibiotic cement was then mixed and formed into the femoral and tibial components utilizing tobramycin and vancomycin antibiotics. This femur mold was packed and then applied directly to the femur and allowed to dry in situ. The mold was later removed. The tibial mold was allowed to dry and then this was added to some cement with a cylindrical piece that had been placed in the tibial canal with another batch of regular antibiotic cement with tobramycin. The leg was then brought into extension and the prosthesis antibiotics. Patient was allowed to cure in extension. 2 g of topical tranexamic acid was instilled into the wound and allowed to sit for approximately 3 minutes. A Betadine solution was also used to irrigate the wound prior to closure. Closure of the arthrotomy was carried out with #1 PDS suture. A full-thickness closure of the skin and subcutaneous tissue was closed carried out with interrupted PDS mattress sutures as well as a running locking PDS #1 suture. The leg did have to be closed in extension secondary to soft tissue tightness. An incisional wound VAC was applied over this using Mastisol and the standard DuoDERM and as well as the blue Bunge dressing and transparent adherent material. There was a delay in hooking up the VAC unit as the larger unit had not been ordered. This was eventually hooked up in the operating room prior to the jaelyn ent being transferred to recovery. Anesthetic was reversed and he was transferred to the recovery room in stable condition with no known complications. The patient was placed in a knee immobilizer. He will not have any range of motion for the first 2 weeks in order to allow the soft tissues to heal. As mentioned, they were under tension with the closure. The patient will be admitted to the hospitalist service. The infectious disease team, including Dr. Umana will be involved in the patient's care. Cultures are pending. Anticipated the patient will likely be an hospital for 3-4 days. DAVID TILLMAN MD December 10, 2020 19:31
[2020-12-10] MEDS ORDERED: LR 1,000 ML IV SCH (19:35)
[2020-12-10] MEDS ORDERED: METOCLOPRAMIDE INJ 10MG/2ML VIAL (J2765 PER 1) IV PRN (19:35)
[2020-12-10] MEDS ORDERED: fentaNYL 100 MCG/2 ML INJECTION (J3010) IV PRN (19:35)
[2020-12-10] MEDS ORDERED: MORPHINE 2 MG/ML 1ML VIAL (J2270) IV PRN (19:35)
[2020-12-10] MEDS ORDERED: oxyCODONE 5MG TAB PO PRN (19:35)
[2020-12-10] MEDS ORDERED: ONDANSETRON 4MG/2ML VIAL IV PRN ×2 (19:35→19:50)
[2020-12-10] MEDS ORDERED: MOM 30ML SUSPENSION UDC PO PRN (19:40)
[2020-12-10] MEDS ORDERED: MAALOX 30 ML SUSP *UDC PO PRN (19:40)
[2020-12-10] MEDS ORDERED: ACETAMINOPHEN TAB 650MG DOSE (2X325MG) PO PRN (19:40)
[2020-12-10] MEDS ORDERED: traMADol 50 MG TAB PO PRN ×2 (19:45)
[2020-12-10] MEDS ORDERED: ACETAMINOPHEN 500 MG TAB PO PRN (19:45)
[2020-12-10] MEDS ORDERED: VANCOMYCIN HCL 1,000 MG, VIAL MATE ADAPTER 1 EACH in NS 250 ML IV SCH (19:45)
[2020-12-10] MEDS ORDERED: SENNA 8.6 MG TAB (SENOKOT) PO PRN (19:50)
--- NOTE | 2020-12-10 19:51 | HPEPDOC ---
[facility] Medical History & Physical Date of Admission December 10, 2020 Date of Service: December 10, 2020 Attending Physician: FEDE PARKER MD History and Physical CHIEF COMPLAINT: [75 y/o M here after right knee revision d/t infected prosthesis.] HISTORY OF PRESENT ILLNESS: [This is a 75 y/o male with a pmh of cad, ckd, htn, anemia, chronic back pain, gerd, anemia, aortic valve endocarditis and right knee prosthesis infection who was seen by myself in the PACU after undergoing right knee revision for his ongoing intra-articular infection. Dr. Hernández, orthopedics, has now removed infected hardware and placed wound vac over incision site. Patient has been on rifampin and nafcillin for treatment of his endocarditis and joint infection since discharged from our hospital on 10/09 after a 7 day stay in which he was diagnosed with these conditions. ID at that time recommended 6 weeks of this therapy followed by oral therapy for 6 month total abx course. Patient also admitted to our hospital for a 4 day stay from 10/28 to 11/01 for acute anemia in which he received 3 units pRBCs, was to f/u outpatient with gi. Patient right now has no acute medical complaints, no pain in his knee, does not appear to have had any issues with anesthesia. Patient denies fevers, chills, chest pain, sob, abd pain, n/v. ] PAST MEDICAL HISTORY: 1. [See HPI PAST SURGICAL HISTORY: 1. [B/L knee replacements]. 2. [L1-5 back surgery]. 3. [C1-7 neck surger 4. Colonoscopy]. SOCIAL HISTORY: Tobacco use:[Former smoker] ETOH: [Deneis] Illicit drug use: [Denies] FAMILY HISTORY: Father - colorectal ca ALLERGIES: Please see below. REVIEW OF SYSTEMS: CONSTITUTIONAL: [Denies fever, chills]. HEENT: [Denies uri sx]. CARDIOVASCULAR: [Denies chest pain, palpitations]. RESPIRATORY: [Denies sob, cough, wheezing]. GASTROINTESTINAL: [Denies abd pain, n/v/d.]. GENITOURINARY: [Denies dysuria]. SKIN: [Denies rash]. MUSCULOSKELETAL: [See HPI]. NEUROLOGICAL: [Denies paresthesia]. ENDOCRINE: [Denies hx of DM]. HEMATOLOGIC/LYMPHATIC: [Denies easy bruising]. HOME MEDICATIONS: Please see below. PHYSICAL EXAMINATION: VITAL SIGNS: Please see below. GENERAL APPEARANCE: [75 y/o male who appears younger than stated age. He is resting in bed in the PACU. He is in no apparent respiratory distress.]. HEENT: [No mass or lesion. EOMI. No scleral icterus. Nares patent. Oral mucosa moist.]. CARDIOVASCULAR: [Regular rate, rhythm. No murmurs, rubs, gallops]. LUNGS: [No wheezing, rales, rhonchi.]. ABDOMEN: [Soft, nontender]. MUSCULOSKELETAL: [Right leg is bandaged in kennedy wrap with an immobilizer. Dressings are dry, intact.]. EXTREMITIES: [No edema noted. No skin changes noted. No clubbing, cyanosis]. NEUROLOGICAL: [Speech clear. A+Ox3. No focal deficits.]. PSYCHIATRIC: [Mood and affect appear appropriate.]. LABORATORY DATA: See below. IMAGING: [Post op knee x-ray 12/10: ] MICROBIOLOGY: Please see below. ASSESSMENT: [75 y/o male with a pmh of cad, ckd, htn, anemia, chronic back pain, gerd, anemia, aortic valve endocarditis and right knee prosthesis infection here after scheduled procedure with Dr. Hernández, orthopedics, for right knee revision. Patient was diagnosed with intra-articular infection in September. Patient also undergoing antibiotic therapy for infectious endocarditis.]. . PLAN: 1. [Septic joint - Pt underwent joint revision today. Wound vac in place. - Will continue abx regimen prescribed by ID. Nafcillin, rifampin. - Pt received a dose of vancomycin and tobramycin in the OR today - Multiple wound cultures sent from OR today - Will give IVF overnight - Zofran if pt develops n/v overnight - tramadol, oxycodone for pain - supplemental o2 for now as patient briefly saturated in the high 80s in the PACU on room air. Titrate to >90%. Likely secondary to anesthesia. - Dr. Hernández, orthopedics, has been consulted. Recommend day team consult ID. - activity per ortho - Admit to [facility] for iv abx, pain management 2. Endocarditis - Continuing rifampin, nafcillin, as stated - Patient asx right now - Recheck white count in the morning 3. Anemia - H/H recheck postop was 24.3/7.7. Likely combination of dilutional from IV fluids received in OR and mild volume depletion from surgical blood loss. Post op noted say patient lost about 150mL of blood during his operation. - Will trend h/h - Continue iron supplement - Will begin iv ppi protonix per recommendations from last admission for anemia 4. CKD - Renal profile to be retrieved in the morning 6. HTN - Continue hydralazine, atenolol 7. HLD - continue atorvastatin 8. Chronic pain - patient receiving tramadol and oxycodone for post op pain, as stated - continue gabapentin DVT prophylaxis - Mechanical for now ]. Vital Signs Vital Signs Date Time Temp Pulse Resp B/P (MAP) Pulse Ox O2 Delivery O2 Flow Rate FiO2 12/10/20 19:45 98.0 75 16 109/56 (73) 99 Nasal Cannula 2.0 Laboratory Data Microbiology Microbiology 12/10/20 Gram Stain, Received Pending 12/10/20 Wound Culture, Received Pending 12/10/20 Anaerobic Culture, Received Pending 12/10/20 Gram Stain, Received Pending 12/10/20 Wound Culture, Received Pending 12/10/20 Anaerobic Culture, Received Pending 12/10/20 Gram Stain, Received Pending 12/10/20 Wound Culture, Received Pending 12/10/20 Anaerobic Culture, Received Pending 12/10/20 Gram Stain, Received Pending 12/10/20 Wound Culture, Received Pending 12/10/20 Anaerobic Culture, Received Pending Home Medications Scheduled Aspirin (Aspirin EC) 81 Mg Tablet.dr, 81 MG PO DAILY Atenolol (Atenolol) 25 Mg Tab, 25 MG PO DAILY Atorvastatin Calcium (Atorvastatin Calcium) 20 Mg Tablet, 40 MG PO QHS Calcitriol (Rocaltrol) 0.25 Mcg Capsule, 0.25 MCG PO 5XW MON THRU FRI Cyanocobalamin (Vitamin B-12) (Vitamin B-12) 1,000 Mcg Tablet, 1,000 MCG PO DAILY Gabapentin (Gabapentin) 800 Mg Tab, 800 MG PO BID Heparin Sodium,Porcine/Pf (Heparin 2 Unit/2 ml (1/ml) Syr) 1 Unit/1 Ml Syringe, 5 UNIT IV DAILY ONCE DAILY TO FLUSH PICC LINE AFTER ANTIBIOTIC INFUSION Hydralazine HCl (Hydralazine HCl) 10 Mg Tablet, 10 MG PO TID L.acidoph/L.bulg/B.bif/S.therm (Bacid Caplet) 1 Each Tablet, 1 TAB PO BIDWM Nafcillin Sod (Nafcillin Sodium) 1 Gm Vial, 1 DOSE IV ASDIRECTED CONTINUOUS VIA PICC LINE Rifampin (Rifampin) 150 Mg Capsule, 300 MG PO BID Scheduled PRN Acetaminophen (Acetaminophen) 500 Mg Tablet, 1,000 MG PO Q6H PRN for PAIN / FEVER Tramadol HCl (Tramadol HCl) 50 Mg Tablet, 50 MG PO BID PRN for PAIN Allergies Coded Allergies: No Known Allergies (Verified , 12/05/20) A-FIB/CHADSVASC A-FIB History Current/History of A-Fib/PAF?: No Attending Note Attending Note time of service 1000pm I independently examined the patient, reviewed the note, discussed the case with and agree with the findings as documented by HAVEN Cobb; with the following addition #Acute on Chronic AAYUSH Plan: bc of hist or CAD will aim for Hg of 8/ f/u iron studies and stool occult SERA COBB December 10, 2020 19:51 FEDE PARKER MD December 10, 2020 22:24
[2020-12-10] MEDS ORDERED: NAFCILLIN SOD IV SCH (19:55)
[2020-12-10 20:24] LABS: HEMATOCRIT 24.3 % (42.0-52.0); HEMOGLOBIN 7.7 g/dl (13.5-17.5)
[2020-12-10 21:00] VITALS: BP 128/61
[2020-12-10] MEDS ORDERED: NAPROXEN 250 MG TAB PO SCH (21:00)
[2020-12-10] MEDS ORDERED: DOCUSATE SODIUM 100MG CAPSULE PO SCH (21:00)
[2020-12-10] MEDS: ATORVASTATIN 20 MG TAB PO SCH (21:44)
[2020-12-10] MEDS: GABAPENTIN 400MG CAP PO SCH (21:44)
[2020-12-10] MEDS: **hydrALAZINE** 10 MG TAB PO SCH (21:44)
[2020-12-10] MEDS: DOCUSATE SODIUM 100MG CAPSULE PO SCH (21:45)
[2020-12-10] MEDS: ASPIRIN 81MG ENTERIC TABLET PO SCH (21:45)
[2020-12-10] MEDS: SODIUM CHLORIDE 0.9% INJ 10 ML SYR IV SCH (21:46)
[2020-12-10] MEDS: LR 1,000 ML IV SCH (21:57)
[2020-12-10] MEDS: rifAMPin 150MG CAPSULE PO SCH (22:34)
[2020-12-10] MEDS: NAFCILLIN SOD 1 GM in D5W MINI-BAG PLUS 50 ML IV SCH (23:46)
[2020-12-11] VITALS (10 sets, daily range): BP systolic 103–162; BP diastolic 53–88; O2SAT 96
[2020-12-11] MEDS ORDERED: ACETAMINOPHEN TAB 650MG DOSE (2X325MG) PO SCH
--- NOTE | 2020-12-11 03:32 | REP ---
INDICATION: POST OP COMPARISON: None. TECHNIQUE: AP and cross-table lateral views. FINDINGS: Diffuse postoperative and degenerative changes. Alignment appears maintained. IMPRESSION: Degenerative and postoperative changes. <Electronically signed by Rob Funes > 12/11/20 [id number]
[2020-12-11] MEDS: NAFCILLIN SOD 1 GM in D5W MINI-BAG PLUS 50 ML IV SCH ×6 (03:35→23:34)
[2020-12-11] MEDS: LR 1,000 ML IV SCH (05:03)
[2020-12-11] MEDS: SODIUM CHLORIDE 0.9% INJ 10 ML SYR IV SCH ×2 (05:06→18:07)
[2020-12-11] MEDS ORDERED: SODIUM CHLORIDE 0.9% INJ 10 ML SYR IV SCH (06:00)
[2020-12-11 06:31] LABS: HEMATOCRIT 25.4 % (42.0-52.0); HEMOGLOBIN 8.1 g/dl (13.5-17.5); MEAN CORPUSCULAR HEMOGLOBIN 31.6 pg (27.0-33.0); MEAN CORPUSCULAR HGB CONC 31.9 g/dl (32.0-36.5); MEAN CORPUSCULAR VOLUME 99.2 fl (80.0-96.0); PLATELET COUNT, AUTOMATED 160 10^3/uL (150-450); RED BLOOD COUNT 2.56 10^6/uL (4.30-6.10); WHITE BLOOD COUNT 5.3 10^3/uL (4.0-10.0)
[2020-12-11 06:58] LABS: CALCIUM LEVEL 7.8 MG/DL (8.8-10.2); CREATININE FOR GFR 1.72 MG/DL (0.70-1.30); GLOMERULAR FILTRATION RATE 41.7 (>42); MAGNESIUM LEVEL 1.9 MG/DL (1.8-2.4); POTASSIUM SERUM 3.9 MEQ/L (3.5-5.1)
[2020-12-11] MEDS: DOCUSATE SODIUM 100MG CAPSULE PO SCH ×2 (07:51→21:00)
[2020-12-11] MEDS: PANTOPRAZOLE 40MG VIAL (C9113 PER 1) IV SCH (07:51)
[2020-12-11] MEDS: CALCITRIOL 0.25 MCG CAP (S0169) PO SCH (07:52)
[2020-12-11] MEDS: rifAMPin 150MG CAPSULE PO SCH ×2 (07:52→21:06)
[2020-12-11] MEDS: ASCORBIC ACID 500 MG TAB PO SCH (07:52)
[2020-12-11] MEDS: GABAPENTIN 400MG CAP PO SCH ×2 (07:52→21:04)
[2020-12-11] MEDS: ASPIRIN 81MG ENTERIC TABLET PO SCH ×2 (07:52→21:04)
[2020-12-11] MEDS: CYANOCOBALAMIN 500 MCG TAB PO SCH (07:53)
[2020-12-11] MEDS: LACTOBACILLUS ACIDOPHILUS CAP (BACID) PO SCH ×2 (07:53→18:06)
[2020-12-11] MEDS: **hydrALAZINE** 10 MG TAB PO SCH ×3 (07:53→21:08)
[2020-12-11] MEDS: FERROUS SULFATE 325MG TAB PO SCH (07:53)
[2020-12-11] MEDS: atenoloL 25 MG TAB PO SCH (07:54)
--- NOTE | 2020-12-11 08:00 | IPNPDOC ---
Text Note Date of Service The patient was seen on 12/11/20. NOTE Subjective: Patient was seen and examined this morning at bedside. Patient tells me his pain is well controlled. He believes the surgery went well and feels relief in his knee pain. No acute overnight events reported to me. Patient denies fevers or chills. Tells me he is not a breakfast person and appetite have breakfast Objective: Constitutional: Awake and alert, in no apparent distress ENT: Sclera are clear. Mucosa is moist. Respiratory: Lungs CTA bilaterally. No respiratory distress. Cardiovascular: Regular heart rate and rhythm Gastrointestinal: Abdomen is soft, non distended, non tender, BS present. Musculoskeletal: No peripheral edema. Right leg is bandaged in Ernesto wrap with immobilizer in place. Dressing is dry and intact. Neurologic: No focal neurological deficit. Mental Status: A&O x3, normal affect Skin: No visible rashes Assessment/plan: 75 y/o male with a pmh of cad, ckd, htn, anemia, chronic back pain, gerd, anemia, aortic valve endocarditis and right knee prosthesis infection here after scheduled procedure with Dr. Hernández, orthopedics, for right knee revision. Patient was diagnosed with infective endocarditis early september 2020. 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 Wound vac applied. - Continue abx regimen prescribed by ID. Nafcillin, rifampin. - tramadol, oxycodone for pain, Zofran IV for nausea - Dr. Hernández, orthopedics following - activity per ortho, PT/OT eval. - [facility], pain management - ASA 81mg BID for 1 month. # Acute Infective Endocarditis; diagnosed September 2020, still undergoing treatment. - Continuing rifampin, nafcillin. Dr Umana will see patient on . - No febrile. No leukocytosis. # Anemia: likely post op drop. Has improved to 8.1. Continue iron supplement. s/p 1uPRBC. Monitor Hgb. Fu FOBT. # CKD: At baseline. Avoid nephrotoxins. Fu with PCP at discharge. # HTN: Continue hydralazine, atenolol # HLD: continue atorvastatin # Chronic pain: tramadol and oxycodone for post op pain. Continue gabapentin DVT prophylaxis: [facility] I+O Lul[facility] ALCANTAR I+O Laboratory Tests 12/10/20 20:09 12/11/20 05:34 Vital Signs Date Time Temp Pulse Resp B/P (MAP) Pulse Ox O2 Delivery O2 Flow Rate FiO2 12/11/20 07:54 60 120/61 12/11/20 05:09 97.5 16 98 Room Air 12/10/20 19:45 2.0 I&O- Last 24 Hours up to 6 AM 12/11/20 06:00 Intake Total 2460 ml Output Total 150 ml Balance 2310 ml PAUL BAIRES MD December 11, 2020 08:00
[2020-12-11 09:02] LABS: FOLATE 11.7 NG/ML (>5.4)
--- NOTE | 2020-12-11 13:44 | IPNPDOC ---
Text Note Date of Service The patient was seen on 12/11/20. NOTE The patient was seen this morning. He states that his pain is relatively well controlled. He denies any chest pain or shortness of breath. On examination, the Ernesto dressing was taken down to expose the incisional VAC dressing. There was a little bit of some blood staining at the edges, however, the seal appeared to be intact. There was a minimal amount of fluid in the collection container, but the tube was still suctioning fluid. The patient is known to have a foot drop on the right side, but he was grossly neurovascularly intact. Given this fact. He had a palpable posterior tibial pulse. X-ray imaging was independently ordered and reviewed by myself. This imaging was done in PACU. This showed the antibiotic spacer in position with the antibiotic laden beads. Overall, the patient is doing quite well. He is continuing on nafcillin and rifampin antibiotics. He will be followed by Dr. Umana, of infectious disease tomorrow. So far, the Gram stain has been negative, but he has been on some antibiotic therapy. The patient will continue to be reevaluated. The incisional VAC will be on for approximately 7-10 days. VS,Fishbone, I+O VS, Fishbone, I+O Laboratory Tests 12/10/20 20:09 12/11/20 05:34 Vital Signs Date Time Temp Pulse Resp B/P (MAP) Pulse Ox O2 Delivery O2 Flow Rate FiO2 12/11/20 10:00 97.4 59 18 153/84 (107) 98 Room Air 12/10/20 19:45 2.0 I&O- Last 24 Hours up to 6 AM 12/11/20 06:00 Intake Total 2460 ml Output Total 150 ml Balance 2310 ml STEPHEN TILLMAN MD December 11, 2020 13:44
[2020-12-11] MEDS: oxyCODONE 5MG TAB PO PRN ×2 (15:06→21:05)
[2020-12-11] MEDS: ATORVASTATIN 20 MG TAB PO SCH (21:04)
[2020-12-12 02:00] VITALS: BP 174/88
[2020-12-12] MEDS: NAFCILLIN SOD 1 GM in D5W MINI-BAG PLUS 50 ML IV SCH ×4 (04:19→16:47)
[2020-12-12 05:43] LABS: HEMATOCRIT 24.8 % (42.0-52.0); MEAN CORPUSCULAR HEMOGLOBIN 31.1 pg (27.0-33.0); MEAN CORPUSCULAR HGB CONC 32.3 g/dl (32.0-36.5); MEAN CORPUSCULAR VOLUME 96.5 fl (80.0-96.0); PLATELET COUNT, AUTOMATED 168 10^3/uL (150-450); RED BLOOD COUNT 2.57 10^6/uL (4.30-6.10); WHITE BLOOD COUNT 4.6 10^3/uL (4.0-10.0)
[2020-12-12 06:03] VITALS: BP 166/88
[2020-12-12 06:10] LABS: CALCIUM LEVEL 7.9 MG/DL (8.8-10.2); CREATININE FOR GFR 1.68 MG/DL (0.70-1.30); GLOMERULAR FILTRATION RATE 42.9 (>42); MAGNESIUM LEVEL 1.5 MG/DL (1.8-2.4)
[2020-12-12] MEDS: traMADol 50 MG TAB PO PRN ×2 (06:18→18:32)
[2020-12-12] MEDS: SODIUM CHLORIDE 0.9% INJ 10 ML SYR IV SCH ×2 (06:21→18:26)
[2020-12-12] MEDS: GABAPENTIN 400MG CAP PO SCH ×2 (08:49→20:51)
[2020-12-12] MEDS: LACTOBACILLUS ACIDOPHILUS CAP (BACID) PO SCH ×2 (08:49→18:25)
[2020-12-12] MEDS: ASPIRIN 81MG ENTERIC TABLET PO SCH ×2 (08:49→20:51)
[2020-12-12] MEDS: rifAMPin 150MG CAPSULE PO SCH (08:50)
[2020-12-12] MEDS: **hydrALAZINE** 10 MG TAB PO SCH ×3 (08:50→20:51)
[2020-12-12] MEDS: ASCORBIC ACID 500 MG TAB PO SCH (08:50)
[2020-12-12] MEDS: CALCITRIOL 0.25 MCG CAP (S0169) PO SCH (08:50)
[2020-12-12] MEDS: atenoloL 25 MG TAB PO SCH (08:50)
[2020-12-12] MEDS: PANTOPRAZOLE 40MG VIAL (C9113 PER 1) IV SCH (08:50)
[2020-12-12] MEDS: FERROUS SULFATE 325MG TAB PO SCH (08:50)
[2020-12-12] MEDS: CYANOCOBALAMIN 500 MCG TAB PO SCH (08:50)
[2020-12-12] MEDS: DOCUSATE SODIUM 100MG CAPSULE PO SCH (08:51)
[2020-12-12 10:00] VITALS: BP 160/87
--- NOTE | 2020-12-12 10:50 | IPNPDOC ---
Text Note Date of Service The patient was seen on 12/12/20. NOTE Subjective: Patient was seen and examined this morning at bedside. Patient tells me his pain is decently controlled about 5 out of 10. Tells me he hasn't been seen by physical therapy at but anticipates to be seen today. Denies fevers or chills. Denies any trouble breathing. No acute overnight events reported to me. Objective: Constitutional: Awake and alert, in no apparent distress ENT: Sclera are clear. Mucosa is moist. Respiratory: Lungs CTA bilaterally. No respiratory distress. Cardiovascular: Regular heart rate and rhythm Gastrointestinal: Abdomen is soft, non distended, non tender, BS present. Musculoskeletal: No peripheral edema. Right leg is bandaged in Ernesto wrap with immobilizer in place. Dressing is dry and intact. Neurologic: No focal neurological deficit. Mental Status: A&O x3, normal affect Skin: No visible rashes Assessment/plan: 75 y/o male with a pmh of cad, ckd, htn, anemia, chronic back pain, gerd, anemia, aortic valve endocarditis and right knee prosthesis infection here after scheduled procedure with Dr. Hernández, orthopedics, for right knee revision. Patient was diagnosed with infective endocarditis early september 2020. 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 Wound vac applied. - Continue abx regimen prescribed by ID. Nafcillin, rifampin. - tramadol, oxycodone for pain, Zofran IV for nausea - Dr. Hernández, orthopedics following - activity per ortho, PT/OT eval. - Admit to [facility] for iv abx, pain management - ASA 81mg BID for 1 month. # Acute Infective Endocarditis; diagnosed September 2020, still undergoing treatment. - Continuing rifampin, nafcillin. Dr Umana will see patient on . - No febrile. No leukocytosis. # Anemia: likely post op drop. Has improved to ~8. Continue iron supplement. s/p 1uPRBC. Monitor Hgb. Fu FOBT. # CKD: At baseline. Avoid nephrotoxins. Fu with PCP at discharge. # HTN: Continue hydralazine, atenolol # HLD: continue atorvastatin # Chronic pain: tramadol and oxycodone for post op pain. Continue gabapentin DVT prophylaxis: SCDs/TEDs A [facility] ALCANTAR, I+O Lulú ALCANTAR I+O Laboratory Tests 12/12/20 05:11 Vital Signs Date Time Temp Pulse Resp B/P (MAP) Pulse Ox O2 Delivery O2 Flow Rate FiO2 12/12/20 10:00 98.6 72 18 160/87 (111) 95 Room Air 12/10/20 19:45 2.0 I&O- Last 24 Hours up to 6 AM 12/12/20 06:00 Intake Total 1220 ml Output Total 1200 ml Balance 20 ml PAUL BAIRES MD December 12, 2020 10:50
[2020-12-12 14:00] VITALS: BP 163/82
[2020-12-12] MEDS ORDERED: NAFCILLIN SOD 2 GM in D5W MINI-BAG PLUS 50 ML IV SCH (20:00)
[2020-12-12 20:24] VITALS: BP 177/87
[2020-12-12] MEDS: NAFCILLIN SOD 2 GM in D5W MINI-BAG PLUS 50 ML IV SCH ×2 (20:50→23:11)
[2020-12-12] MEDS: ATORVASTATIN 20 MG TAB PO SCH (20:50)
--- NOTE | 2020-12-12 20:54 | IPNPDOC ---
Text Note Date of Service The patient was seen on 12/12/20. NOTE POD 2 Right knee I&D washout Stage 1 revision for infection Patient seen this morning. Doing well. No CP or SOB. Knee immobilizer in place. Vac dressing in position with good suction, but evidence of blood seeping at the edges of the duoderm seal. Prevena VAC change: Prevena dressing was taken down and the wound edges were cleaned with ETOH wipes. Minimal serosanquenous seeping from wound edges. Painted wound edge with betadine. Duoderm strips and blue sponge dressing applied. Secured with transparent dressing. Continuous 125 mmhg vac setting. 5x30 cm dressing applied. Plan for DC home with homecare Nursing, PT, OT, IV Abx therapy. Prevena dressing to remain, on, and intact. Extra cartridges to be provided. Patient will follow up WednesdayDecember [address] Tillman for removal of prevena dressing. Dr. Umana following from ID VS,Lul[facility], I+O VS, Lul[facility] I+O Laboratory Tests 12/12/20 05:11 Vital Signs Date Time Temp Pulse Resp B/P (MAP) Pulse Ox O2 Delivery O2 Flow Rate FiO2 12/12/20 20:24 98.4 70 20 177/87 (117) 95 Room Air 12/10/20 19:45 2.0 I&O- Last 24 Hours up to 6 AM 12/12/20 06:00 Intake Total 1220 ml Output Total 1200 ml Balance 20 ml STEPHEN TILLMAN MD December 12, 2020 20:54
[2020-12-12 21:00] VITALS: O2SAT 96
[2020-12-13 01:15] VITALS: BP 168/88
[2020-12-13] MEDS: NAFCILLIN SOD 2 GM in D5W MINI-BAG PLUS 50 ML IV SCH ×3 (04:29→12:52)
[2020-12-13] MEDS: SODIUM CHLORIDE 0.9% INJ 10 ML SYR IV SCH (06:08)
[2020-12-13 06:38] VITALS: BP 174/89
[2020-12-13 07:51] LABS: HEMATOCRIT 26.4 % (42.0-52.0); HEMOGLOBIN 8.5 g/dl (13.5-17.5); MEAN CORPUSCULAR HGB CONC 32.2 g/dl (32.0-36.5); MEAN CORPUSCULAR VOLUME 96.4 fl (80.0-96.0); PLATELET COUNT, AUTOMATED 178 10^3/uL (150-450); RED BLOOD COUNT 2.74 10^6/uL (4.30-6.10); WHITE BLOOD COUNT 4.6 10^3/uL (4.0-10.0)
[2020-12-13 08:14] LABS: ERYTHROCYTE SEDIMENTATION RATE 129 mm/hr (0-20)
[2020-12-13 08:18] LABS: C REACTIVE PROTEIN QUANTITATIV 9.17 MG/DL (0.00-0.30); CALCIUM LEVEL 8.7 MG/DL (8.8-10.2); CREATININE FOR GFR 1.82 MG/DL (0.70-1.30); GLOMERULAR FILTRATION RATE 39.1 (>42); MAGNESIUM LEVEL 1.9 MG/DL (1.8-2.4)
[2020-12-13] MEDS: PANTOPRAZOLE 40MG VIAL (C9113 PER 1) IV SCH (09:03)
[2020-12-13] MEDS: LACTOBACILLUS ACIDOPHILUS CAP (BACID) PO SCH (09:03)
[2020-12-13 09:04] VITALS: BP 174/89
[2020-12-13] MEDS: CALCITRIOL 0.25 MCG CAP (S0169) PO SCH (09:04)
[2020-12-13] MEDS: FERROUS SULFATE 325MG TAB PO SCH (09:04)
[2020-12-13] MEDS: **hydrALAZINE** 10 MG TAB PO SCH (09:04)
[2020-12-13] MEDS: ASPIRIN 81MG ENTERIC TABLET PO SCH (09:04)
[2020-12-13] MEDS: CYANOCOBALAMIN 500 MCG TAB PO SCH (09:04)
[2020-12-13] MEDS: atenoloL 25 MG TAB PO SCH (09:04)
[2020-12-13] MEDS: GABAPENTIN 400MG CAP PO SCH (09:04)
[2020-12-13] MEDS: ASCORBIC ACID 500 MG TAB PO SCH (09:05)
[2020-12-13] MEDS: traMADol 50 MG TAB PO PRN (09:07)
[2020-12-13 10:00] VITALS: BP 166/91
--- NOTE | 2020-12-13 11:28 | DS.PDOC ---
Discharge Summary General Date of Admission December 11, 2020 at 10:32 Date of Discharge 12/14/20 Discharge Summary PROCEDURES PERFORMED DURING STAY: [None]. ADMITTING/DISCHARGE DIAGNOSES: 1. 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 Acute Infective Endocarditis; diagnosed September 2020, still undergoing treatment. COMPLICATIONS/CHIEF COMPLAINT: Infected Right Total Knee Replacement. HISTORY OF PRESENT ILLNESS/HOSPITAL COURSE: 75 y/o male with a pmh of cad, ckd, htn, anemia, chronic back pain, gerd, anemia, aortic valve endocarditis and right knee prosthesis infection here after scheduled procedure with Dr. Hernández, orthopedics, for right knee revision. Patient was diagnosed with infective endocarditis early september 2020. 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 Wound vac applied. - Continue abx regimen prescribed by ID. Nafcillin, rifampin. - tramadol, oxycodone for pain, Zofran IV for nausea - Dr. Hernández, clinic follow-up after discharge - ASA 81mg BID for 1 month. # Acute Infective Endocarditis; diagnosed September 2020, still undergoing treatment. - Continuing rifampin, nafcillin. Dr Umana saw the patient and wrote scripts to megan sanchezue his antibiotics at home - Not febrile. No leukocytosis. DISCHARGE MEDICATIONS: Please see below. ALLERGIES: Please see below. PHYSICAL EXAMINATION ON DISCHARGE: VITAL SIGNS: Please see below. Constitutional: Awake and alert, in no apparent distress ENT: Sclera are clear. Mucosa is moist. Respiratory: Lungs CTA bilaterally. No respiratory distress. Cardiovascular: Regular heart rate and rhythm Gastrointestinal: Abdomen is soft, non distended, non tender, BS present. Musculoskeletal: No peripheral edema. Right leg is bandaged in Ernesto wrap with immobilizer in place. Wound vac. Dressing is dry and intact. Neurologic: No focal neurological deficit. Mental Status: A&O x3, normal affect Skin: No visible rashes LABORATORY DATA: Please see below. IMAGING: See chart PROGNOSIS: Fair ACTIVITY: [As tolerated]. DIET: Regular diet DISPOSITION: Home with home health DISCHARGE INSTRUCTIONS: Please follow up with your primary care physician within 1 week from discharge. If you do not have one, please follow up with us to schedule an appointment. Please keep all of your follow up appointments. Please call central to book your appointments with hospital specialists. Please take all your medications as prescribed. Please call/come to Clinic or go to the Emergency Department if - Temp >101, intractable Nausea/Vomiting, Diarrhea, Mouth sores, Headaches, Altered mental status, Seizures, sudden onset of swelling, bleeding, shortness of breath or chest pain. ITEMS TO FOLLOWUP ON ON OUTPATIENT: Follow up with your primary care doctor within 5 days of discharge Follow-up with Dr. umana to infectious diseases Follow-up with orthopedic surgeon Dr. Hernández DISCHARGE CONDITION: [Stable]. TIME SPENT ON DISCHARGE: 40 minutes. Vital Signs/I&Os Vital Signs Date Time Temp Pulse Resp B/P (MAP) Pulse Ox O2 Delivery O2 Flow Rate FiO2 12/13/20 10:00 97.6 67 19 166/91 (116) 97 12/13/20 09:07 Room Air 12/10/20 19:45 2.0 I&O- Last 24 Hours up to 6 AM 12/13/20 06:00 Intake Total 1830 ml Output Total 800 ml Balance 1030 ml Laboratory Data Labs 24H Laboratory Tests 2 12/13/20 07:11: Nucleated Red Blood Cells % (auto) 0.0, Erythrocyte Sedimentation Rate 129H, Anion Gap 6L, Glomerular Filtration Rate 39.1L, Calcium Level 8.7L, Magnesium Level 1.9, C-Reactive Protein, Quantitative 9.17H CBC/BMP Laboratory Tests 12/13/20 07:11 Microbiology Microbiology 12/10/20 Gram Stain - Final, Complete 12/10/20 Wound Culture - Final, Complete Staphylococcus Epidermidis 12/10/20 Anaerobic Culture - Final, Complete 12/10/20 Gram Stain - Final, Resulted 12/10/20 Wound Culture - Preliminary, Resulted 12/10/20 Anaerobic Culture - Final, Complete 12/10/20 Gram Stain - Final, Complete 12/10/20 Wound Culture - Final, Complete 12/10/20 Anaerobic Culture - Final, Complete 12/10/20 Gram Stain - Final, Complete 12/10/20 Wound Culture - Final, Complete Staphylococcus Hominis Ssp Muriel 12/10/20 Anaerobic Culture - Final, Complete Discharge Medications Scheduled Ascorbic Acid (Vitamin C) 500 Mg Tablet, 500 MG PO DAILY Aspirin (Aspirin EC) 81 Mg Tablet., 81 MG PO BID Atenolol (Atenolol) 25 Mg Tab, 25 MG PO DAILY, (Reported) Atorvastatin Calcium (Atorvastatin Calcium) 20 Mg Tablet, 40 MG PO QHS Calcitriol (Rocaltrol) 0.25 Mcg Capsule, 0.25 MCG PO 5XW, (Reported) MON THRU FRI Cyanocobalamin (Vitamin B-12) (Vitamin B-12) 1,000 Mcg Tablet, 1,000 MCG PO DAILY, (Reported) Ferrous Sulfate (Ferrous Sulfate) 325 Mg Tablet, 325 MG PO DAILY Gabapentin (Gabapentin) 800 Mg Tab, 800 MG PO BID, (Reported) Heparin Sodium,Porcine/Pf (Heparin 2 Unit/2 ml (1/ml) Syr) 1 Unit/1 Ml Syringe, 5 UNIT IV DAILY, (Reported) ONCE DAILY TO FLUSH PICC LINE AFTER ANTIBIOTIC INFUSION Hydralazine HCl (Hydralazine HCl) 10 Mg Tablet, 10 MG PO TID L.acidoph/L.bulg/B.bif/S.therm (Bacid Caplet) 1 Each Tablet, 1 TAB PO BIDWM, (Reported) Nafcillin Sod (Nafcillin Sodium) 1 Gm Vial, 1 DOSE IV ASDIRECTED, (Reported) CONTINUOUS VIA PICC LINE Rifampin (Rifampin) 150 Mg Capsule, 300 MG PO BID, (Reported) Scheduled PRN Acetaminophen (Acetaminophen) 500 Mg Tablet, 1,000 MG PO Q6H PRN for PAIN / FEVER, (Reported) Oxycodone HCl (Oxycodone HCl) 5 Mg Tablet, 5 MG PO Q6HP PRN for SEVERE PAIN 8-10 Tramadol HCl (Tramadol HCl) 50 Mg Tablet, 50 MG PO BID PRN for PAIN, (Reported) Tramadol HCl (Tramadol HCl) 50 Mg Tablet, 50 MG PO Q4HP PRN for MODERATE PAIN 3- 7 Allergies Coded Allergies: No Known Allergies (Verified , 12/05/20) PAUL BAIRES MD December 13, 2020 11:28
[2020-12-13] MEDS ORDERED: FERR1TAB8 PO (11:32)
[2020-12-13] MEDS ORDERED: OXYC-517 PO (11:32)
[2020-12-13] MEDS ORDERED: ASCO50TA PO (11:32)
[2020-12-13] MEDS ORDERED: TRAM50TA2 PO (11:32)
[2020-12-13] MEDS ORDERED: ASPI-551 PO (11:32)
--- NOTE | 2020-12-13 12:42 | CR ---
CONSULTATION DATE: 12/12/2020 REASON FOR CONSULTATION: Asked to consult by Hospitalist and Dr. Hernández for follow up on prosthetic joint infection. HISTORY OF PRESENT ILLNESS: Mr. 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 The patient also had Staphylococcus aureus endocarditis of aortic valve. He had been on 8 weeks of therapy and in spite of prolonged treatment his knee continued to be swollen, erythematous and his sed rate remained elevated as well as his CRP. His sed rate was 106 at the end of his therapy. Due to the persistent swelling and other inflammatory marker the patient was readmitted for elective surgery on 12/11 for removal of prosthesis. The patient has a PICC line in his right arm which has not been accessed but had been used at home. He denied having any fevers or chills. He had some pain before admission. He denied any chest pain or shortness of breath. The patient had explantation done on 12/10 and he is ready for discharge in the next couple of days. EXAM: He has remained afebrile. Temperature 98.4, pulse 69, respirations 18, blood pressure 163/82, O2 sat 94% on room air. Heart normal S1, S2 with systolic ejection murmur 1/6 at the left upper sternal border. Lungs are clear, no wheezes, rhonchi or rales. Abdomen soft, nontender, nondistended. Extremities: +1 ankle edema on the right side, no edema on the left side. Left knee prosthesis is well healed, normal range of motion in right knee. He has a Prevena wound VAC in place. There is no surrounding erythema around the Prevena dressing. It has an immobilizer as well. Neurologic exam: Alert and oriented x3. Motor strength is normal. ALLERGIES: NO KNOWN DRUG ALLERGIES. MEDICATIONS: 1. Pantoprazole 40 mg IV daily. 2. Vitamin C 500 mg daily. 3. Ferrous Sulfate 325 mg PO daily. 4. Vitamin B12 1000 mcg daily. 5. Calcitriol 0.25 mcg Wednesday, Wednesday, Wednesday, , Wednesday. 6. Atenolol 25 mg daily. 7. Probiotics one tablet PO twice daily. 8. Nafcillin 1 gm IV every 4 hours. 9. Rifampin 300 mg PO twice daily. 10. Docusate 100 mg PO twice daily. 11. Hydralazine 10 mg PO three times a day. 12. Gabapentin 800 mg PO twice daily. 13. Atorvastatin 40 mg PO at nighttime. 14. Aspirin 81 mg PO twice daily. 15. Senna PRN. 16. Tramadol 100 mg PO every 4 hours PRN. LABORATORY DATA: White count 4.6, hemoglobin 8, hematocrit 24.8, platelets 168. Sodium 142, potassium 4, chloride 114, bicarb 23, BUN 19, creatinine 1.68, glucose 110, calcium 7.9, magnesium 1.5. Vitamin B12 762. Folate 11.7, iron 28.9, TIBC 116, iron saturation 25, ferritin 339. Intraoperative cultures so far are negative. Aerobic and anaerobic two are still pending. Gram stain had a few white cells, no organisms seen. 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 IMPRESSION: This is a 75-year-old gentleman admitted for prosthetic joint infection that failed initial procedure of synovectomy and IV antibiotics for 8 weeks. He also has history of aortic valve endocarditis that has been treated appropriately with six weeks of IV Nafcillin. He had a follow up echocardiogram by Dr. Somers and seen by cardiology and has resolved. The patient is admitted for explantation of prosthesis and will be treated again with second course of IV antibiotics. PLAN: 1. Increase the dose of Nafcillin to 2 gm IV every 4 hours. 2. The patient will be discharged home with 12 gm IV continuous infusion through his PICC line. 3. Discontinue Rifampin since the prosthesis has been removed. There is no need for synergy with Rifampin. 4. In the next couple of days the patient will be going home with Prevena wound VAC as well. MTDD
--- NOTE | 2020-12-13 15:17 | IPN ---
PROGRESS NOTE DATE: 12/13/2020 Hossein is doing well. He has no fever or chills. No nausea, vomiting, or diarrhea. He is anxious to go home. He has been afebrile. Temperature is 97.6, pulse 67, respirations 19, blood pressure 166/91, oxygen saturation 97% on room air. HEART: Normal S1, S2 with a systolic ejection murmur, 2/6, left upper sternal border, unchanged. LUNGS: Few crackles at the right base. No wheezes, rales, or rhonchi. ABDOMEN: Soft, nontender. No hepatosplenomegaly. EXTREMITIES: Edema 1+ on the right side. No edema on the left side. Right knee: Prevena dressing in place. Beyond the dressing there is no surrounding erythema. LABORATORY DATA: White count 4.6, hemoglobin 8.5, hematocrit 26.4, platelets 178, ESR 129. Sodium 142, potassium 4, chloride 110, bicarbonate 26, BUN 18, cr 1.82, glucose 100, calcium 8.7, magnesium 1.9. CRP 9.17. Wound cultures, right knee, one culture had Staphylococcus hominis, methicillin sensitive, few. A different site from the right knee has also few Staphylococcus epidermidis, also methicillin sensitive. None of the cultures grew Staphylococcus aureus. IMPRESSION: 1. Right knee prosthetic joint infection due to methicillin-sensitive Staphylococcus aureus (MSSA), status post explantation after he has failed 8 weeks of intravenous (IV) nafcillin, debridement. The patient has intraoperative cultures that are Staphylococcus coagulase negative, which are probably just contaminant but are methicillin sensitive, and therefore I would continue IV nafcillin. The patient does not need rifampin, as the prosthesis has been removed. 2. Iron deficiency anemia. Most recent iron studies are normal. The patient's anemia is stable. He continues on iron sulfate and vitamin C as well as vitamin B12. 3. History of aortic valve endocarditis from MSSA. Patient has finished treatment and had a followup echocardiogram and doing well. Follows up with cardiology. Blood pressure slightly elevated today. PLAN: Patient could be discharged home on nafcillin 12 grams IV continuous infusion for a total of 6 weeks with end of therapy scheduled January 22. Patient will be monitored with complete blood count (CBC), basic, C-reactive protein (CRP), erythrocyte sedimentation rate (ESR) weekly. Patient will go home with a Prevena wound vacuum-assisted closure (VAC). Case has been discussed with Dr. Hernández.
--- NOTE | 2020-12-13 15:23 | IPNPDOC ---
Text Note Date of Service The patient was seen on 12/13/20. NOTE POD 3 stage 1 or 2 stage revision for infected R total knee. The patient was seen today, just prior to his dc home. The pt had just torn the suction off of his prevena dressing. This was accidentally done by moving his table over his leg. This was repositioned and secured with the adhesive film. Suction was reestablished. The patient was advised on the portable wound vac unit. Planned for DC today. He will follow up with me in the office on WednesdayDecember 20 for reevaluation of the prevena dressing. VS,Fishbone, I+O VS, Fishbone, I+O Laboratory Tests 12/13/20 07:11 Vital Signs Date Time Temp Pulse Resp B/P (MAP) Pulse Ox O2 Delivery O2 Flow Rate FiO2 12/13/20 10:00 97.6 67 19 166/91 (116) 97 12/13/20 09:37 Room Air 12/10/20 19:45 2.0 I&O- Last 24 Hours up to 6 AM 12/13/20 05:59 Intake Total 1830 ml Output Total 800 ml Balance 1030 ml STEPHEN TILLMAN MD December 13, 2020 15:23
== END 2020-12-13 16:45 | disposition home health service (06) | DRG 466 ==
LOC: INTOOBSV 12:19 → M OR 12:19 → M MS5PR 21:00 → OBSVTOIN 12-11 10:32
PROVIDERS: ADMIT Orthopaedic Surgery Adult Reconstructive Orthopaedic Surgery; ATTEND Family Medicine
PROC: 0SPC0JZ Removal of Synthetic Substitute from Right Knee Joint, Open Approach (ICD-10-PCS; principal; 2020-12-11)
PROC: 0SRC0JA Replacement of Right Knee Joint with Synthetic Substitute, Uncemented, Open Approach (ICD-10-PCS; 2020-12-11)
PROC: 30233N0 Transfusion of Autologous Red Blood Cells into Peripheral Vein, Percutaneous Approach (ICD-10-PCS; 2020-12-11)
DX: T84.53XA Infection and inflammatory reaction due to internal right knee prosthesis, initial encounter (principal); I33.0 Acute and subacute infective endocarditis; M00.9 Pyogenic arthritis, unspecified; I35.8 Other nonrheumatic aortic valve disorders; I25.10 Atherosclerotic heart disease of native coronary artery without angina pectoris; K21.9 Gastro-esophageal reflux disease without esophagitis; I10 Essential (primary) hypertension; Z79.82 Long term (current) use of aspirin; Z79.899 Other long term (current) drug therapy; Z96.653 Presence of artificial knee joint, bilateral; D50.9 Iron deficiency anemia, unspecified; Y83.1 Surgical operation with implant of artificial internal device as the cause of abnormal reaction of the patient, or of later complication, without mention of misadventure at the time of the procedure

== ENCOUNTER → 2020-12-17 | Outpatient (REF) | payer MEDICARE ==
[~2020-12-17] MED LIST changes: -ACETAMINOPHEN 500 MG TAB PO ONE; +ASCO50TA PO; +FERR1TAB8 PO; -LIDOCAINE 1% MDV 20ML VIAL SQ PRN; -LR 1,000 ML IV ONE; -NAPROXEN 250 MG TAB PO ONE; -NS 1,000 ML IV SCH; +OXYC-517 PO; -PREGABALIN 25 MG CAP (LYRICA) PO ONE; -ROPIVA 125MG/EPINEPH 0.25MG/CLONID 40MCG/KETOR 15MG IN NS 50ML SYRINGE XX ONE; -dexameTHASONE 4 MG/ML 1ML VIAL (J1100 PER 1MG) IV ONE
[2020-12-17 14:07] LABS: HEMATOCRIT 28.2 % (42.0-52.0); HEMOGLOBIN 8.9 g/dl (13.5-17.5); MEAN CORPUSCULAR HEMOGLOBIN 31.2 pg (27.0-33.0); MEAN CORPUSCULAR HGB CONC 31.6 g/dl (32.0-36.5); MEAN CORPUSCULAR VOLUME 98.9 fl (80.0-96.0); PLATELET COUNT, AUTOMATED 282 10^3/uL (150-450); RED BLOOD COUNT 2.85 10^6/uL (4.30-6.10); WHITE BLOOD COUNT 6.8 10^3/uL (4.0-10.0)
[2020-12-17 14:41] LABS: ALBUMIN 2.1 GM/DL (3.2-5.2); BILIRUBIN,TOTAL 1.7 MG/DL (0.2-1.0); C REACTIVE PROTEIN QUANTITATIV 11.5 MG/DL (0.00-0.30); CALCIUM LEVEL 10.2 MG/DL (8.8-10.2); CREATININE FOR GFR 2.27 MG/DL (0.70-1.30); GLOMERULAR FILTRATION RATE 30.3 (>42); TOTAL PROTEIN 7.1 GM/DL (6.4-8.2)
[2020-12-17 15:30] LABS: ERYTHROCYTE SEDIMENTATION RATE 126 mm/hr (0-20)
== END ==
LOC: M SHH 13:45 → M LAB REF 13:45
PROVIDERS: ATTEND Internal Medicine Infectious Disease
DX: A49.01 Methicillin susceptible Staphylococcus aureus infection, unspecified site (principal); T84.53XD Infection and inflammatory reaction due to internal right knee prosthesis, subsequent encounter; I33.9 Acute and subacute endocarditis, unspecified; Y83.1 Surgical operation with implant of artificial internal device as the cause of abnormal reaction of the patient, or of later complication, without mention of misadventure at the time of the procedure; Z96.651 Presence of right artificial knee joint

== ENCOUNTER → 2020-12-24 | Outpatient (CLI) | payer MEDICARE ==
--- NOTE | 2020-12-24 10:47 | REP ---
INDICATION: AFTERCARE. COMPARISON: 12/10/2020 TECHNIQUE: AP, lateral, sunrise views of the right knee. FINDINGS: Advanced degenerative changes, postoperative changes, heterotopic calcification, suspected calcifications within the joint space, and surgical pellets along with soft tissue swelling and effusion. Findings appear to be mildly progressive when compared to prior examination. No obvious acute fracture or dislocation. IMPRESSION: Significant changes as noted above. <Electronically signed by Rob Funes > 12/24/20 1047
== END ==
LOC: M SOG 08:04
PROVIDERS: ATTEND Orthopaedic Surgery Adult Reconstructive Orthopaedic Surgery
DX: Z48.89 Encounter for other specified surgical aftercare (principal); M17.11 Unilateral primary osteoarthritis, right knee; M25.461 Effusion, right knee

== ENCOUNTER → 2020-12-24 | Outpatient (REF) | payer MEDICARE ==
[2020-12-24 17:09] LABS: HEMATOCRIT 27.2 % (42.0-52.0); HEMOGLOBIN 8.6 g/dl (13.5-17.5); MEAN CORPUSCULAR HEMOGLOBIN 31.9 pg (27.0-33.0); MEAN CORPUSCULAR HGB CONC 31.6 g/dl (32.0-36.5); MEAN CORPUSCULAR VOLUME 100.7 fl (80.0-96.0); PLATELET COUNT, AUTOMATED 306 10^3/uL (150-450); WHITE BLOOD COUNT 7.4 10^3/uL (4.0-10.0)
[2020-12-24 17:45] LABS: ERYTHROCYTE SEDIMENTATION RATE 128 mm/hr (0-20)
[2020-12-24 18:23] LABS: BILIRUBIN,TOTAL 1.6 MG/DL (0.2-1.0); C REACTIVE PROTEIN QUANTITATIV 6.55 MG/DL (0.00-0.30); CALCIUM LEVEL 9.3 MG/DL (8.8-10.2); CREATININE FOR GFR 2.31 MG/DL (0.70-1.30); GLOMERULAR FILTRATION RATE 29.7 (>42); POTASSIUM SERUM 4.4 MEQ/L (3.5-5.1)
== END ==
LOC: M SHH 16:06
PROVIDERS: ATTEND Internal Medicine Infectious Disease
DX: A49.01 Methicillin susceptible Staphylococcus aureus infection, unspecified site (principal); I33.9 Acute and subacute endocarditis, unspecified; Z48.89 Encounter for other specified surgical aftercare; M17.11 Unilateral primary osteoarthritis, right knee; M25.461 Effusion, right knee

== ENCOUNTER → 2020-12-30 | Outpatient (REF) | payer MEDICARE ==
[2020-12-30 13:38] LABS: HEMATOCRIT 26.6 % (42.0-52.0); HEMOGLOBIN 8.3 g/dl (13.5-17.5); MEAN CORPUSCULAR HEMOGLOBIN 31.2 pg (27.0-33.0); MEAN CORPUSCULAR HGB CONC 31.2 g/dl (32.0-36.5); PLATELET COUNT, AUTOMATED 309 10^3/uL (150-450); RED BLOOD COUNT 2.66 10^6/uL (4.30-6.10)
[2020-12-30 14:03] LABS: C REACTIVE PROTEIN QUANTITATIV 5.85 MG/DL (0.00-0.30); CALCIUM LEVEL 9.2 MG/DL (8.8-10.2); CREATININE FOR GFR 2.28 MG/DL (0.70-1.30); GLOMERULAR FILTRATION RATE 30.1 (>42)
[2020-12-30 14:19] LABS: ERYTHROCYTE SEDIMENTATION RATE 126 mm/hr (0-20)
== END ==
LOC: M SHH 12:51
PROVIDERS: ATTEND Internal Medicine Infectious Disease
DX: T84.59XD Infection and inflammatory reaction due to other internal joint prosthesis, subsequent encounter (principal)

== ENCOUNTER → 2020-12-31 | Outpatient (REF) | payer MEDICARE ==
[2020-12-31 15:15] LABS: CLOSTRIDIUM DIFFICILE PCR NEGATIVE (NEGATIVE)
== END ==
LOC: M SFHCPLAZ 13:10
PROVIDERS: ATTEND Internal Medicine Infectious Disease
DX: R19.7 Diarrhea, unspecified (principal)

== ENCOUNTER → 2021-01-06 | Outpatient (REF) | payer MEDICARE ==
[2021-01-06 15:52] LABS: HEMATOCRIT 27.3 % (42.0-52.0); HEMOGLOBIN 8.6 g/dl (13.5-17.5); MEAN CORPUSCULAR HEMOGLOBIN 32.6 pg (27.0-33.0); MEAN CORPUSCULAR HGB CONC 31.5 g/dl (32.0-36.5); MEAN CORPUSCULAR VOLUME 103.4 fl (80.0-96.0); PLATELET COUNT, AUTOMATED 246 10^3/uL (150-450); RED BLOOD COUNT 2.64 10^6/uL (4.30-6.10); WHITE BLOOD COUNT 5.6 10^3/uL (4.0-10.0)
[2021-01-06 16:23] LABS: BILIRUBIN,TOTAL 1.1 MG/DL (0.2-1.0); CREATININE FOR GFR 2.1 MG/DL (0.70-1.30); GLOMERULAR FILTRATION RATE 33.1 (>42); POTASSIUM SERUM 5.3 MEQ/L (3.5-5.1); TOTAL PROTEIN 7.5 GM/DL (6.4-8.2)
[2021-01-06 16:24] LABS: ALBUMIN 2.3 GM/DL (3.2-5.2); C REACTIVE PROTEIN QUANTITATIV 2.91 MG/DL (0.00-0.30)
[2021-01-06 16:25] LABS: ERYTHROCYTE SEDIMENTATION RATE 127 mm/hr (0-20)
== END ==
LOC: M SHH 15:06
PROVIDERS: ATTEND Internal Medicine Infectious Disease
DX: A49.01 Methicillin susceptible Staphylococcus aureus infection, unspecified site (principal); I33.9 Acute and subacute endocarditis, unspecified; T84.53XA Infection and inflammatory reaction due to internal right knee prosthesis, initial encounter; Y83.1 Surgical operation with implant of artificial internal device as the cause of abnormal reaction of the patient, or of later complication, without mention of misadventure at the time of the procedure

== ENCOUNTER → 2021-01-13 | Outpatient (REF) | payer MEDICARE ==
[2021-01-13 15:42] LABS: HEMATOCRIT 27.2 % (42.0-52.0); HEMOGLOBIN 8.5 g/dl (13.5-17.5); MEAN CORPUSCULAR HEMOGLOBIN 32.7 pg (27.0-33.0); MEAN CORPUSCULAR HGB CONC 31.3 g/dl (32.0-36.5); MEAN CORPUSCULAR VOLUME 104.6 fl (80.0-96.0); PLATELET COUNT, AUTOMATED 226 10^3/uL (150-450); WHITE BLOOD COUNT 5.5 10^3/uL (4.0-10.0)
[2021-01-13 16:26] LABS: ERYTHROCYTE SEDIMENTATION RATE 107 mm/hr (0-20)
[2021-01-13 16:32] LABS: C REACTIVE PROTEIN QUANTITATIV 1.54 MG/DL (0.00-0.30); CALCIUM LEVEL 8.8 MG/DL (8.8-10.2); CREATININE FOR GFR 1.87 MG/DL (0.70-1.30); GLOMERULAR FILTRATION RATE 37.9 (>42); POTASSIUM SERUM 5.1 MEQ/L (3.5-5.1)
== END ==
LOC: M SHH 14:58
PROVIDERS: ATTEND Internal Medicine Infectious Disease
DX: T84.50XA Infection and inflammatory reaction due to unspecified internal joint prosthesis, initial encounter (principal); Y83.1 Surgical operation with implant of artificial internal device as the cause of abnormal reaction of the patient, or of later complication, without mention of misadventure at the time of the procedure

== ENCOUNTER → 2021-01-20 | Outpatient (REF) | payer MEDICARE ==
[2021-01-20 16:17] LABS: HEMATOCRIT 28.2 % (42.0-52.0); HEMOGLOBIN 8.9 g/dl (13.5-17.5); MEAN CORPUSCULAR HEMOGLOBIN 33.1 pg (27.0-33.0); MEAN CORPUSCULAR HGB CONC 31.6 g/dl (32.0-36.5); MEAN CORPUSCULAR VOLUME 104.8 fl (80.0-96.0); PLATELET COUNT, AUTOMATED 202 10^3/uL (150-450); RED BLOOD COUNT 2.69 10^6/uL (4.30-6.10)
[2021-01-20 16:45] LABS: ALBUMIN 2.8 GM/DL (3.2-5.2); BILIRUBIN,TOTAL 0.8 MG/DL (0.2-1.0); C REACTIVE PROTEIN QUANTITATIV 1.47 MG/DL (0.00-0.30); CALCIUM LEVEL 8.6 MG/DL (8.8-10.2); CREATININE FOR GFR 1.88 MG/DL (0.70-1.30); GLOMERULAR FILTRATION RATE 37.6 (>42); POTASSIUM SERUM 5.5 MEQ/L (3.5-5.1); TOTAL PROTEIN 7.4 GM/DL (6.4-8.2)
[2021-01-20 17:02] LABS: ERYTHROCYTE SEDIMENTATION RATE 96 mm/hr (0-20)
== END ==
LOC: M SHH 16:01
PROVIDERS: ATTEND Internal Medicine Infectious Disease
DX: A49.01 Methicillin susceptible Staphylococcus aureus infection, unspecified site (principal); I33.9 Acute and subacute endocarditis, unspecified

== ENCOUNTER → 2021-01-27 | Outpatient (REF) | payer MEDICARE ==
[2021-01-27 15:28] LABS: HEMATOCRIT 31.6 % (42.0-52.0); HEMOGLOBIN 9.9 g/dl (13.5-17.5); MEAN CORPUSCULAR HEMOGLOBIN 33.1 pg (27.0-33.0); MEAN CORPUSCULAR HGB CONC 31.3 g/dl (32.0-36.5); MEAN CORPUSCULAR VOLUME 105.7 fl (80.0-96.0); PLATELET COUNT, AUTOMATED 183 10^3/uL (150-450); RED BLOOD COUNT 2.99 10^6/uL (4.30-6.10); WHITE BLOOD COUNT 5.1 10^3/uL (4.0-10.0)
[2021-01-27 15:58] LABS: ERYTHROCYTE SEDIMENTATION RATE 75 mm/hr (0-20)
[2021-01-27 16:02] LABS: BILIRUBIN,TOTAL 0.7 MG/DL (0.2-1.0); C REACTIVE PROTEIN QUANTITATIV 0.97 MG/DL (0.00-0.30); CREATININE FOR GFR 2.11 MG/DL (0.70-1.30); GLOMERULAR FILTRATION RATE 32.9 (>42); POTASSIUM SERUM 5.1 MEQ/L (3.5-5.1); TOTAL PROTEIN 7.5 GM/DL (6.4-8.2)
== END ==
LOC: M SHH 15:04
PROVIDERS: ATTEND Internal Medicine Infectious Disease
DX: I33.9 Acute and subacute endocarditis, unspecified (principal); A49.01 Methicillin susceptible Staphylococcus aureus infection, unspecified site; T84.53XA Infection and inflammatory reaction due to internal right knee prosthesis, initial encounter; Z96.651 Presence of right artificial knee joint; Y83.1 Surgical operation with implant of artificial internal device as the cause of abnormal reaction of the patient, or of later complication, without mention of misadventure at the time of the procedure

== ENCOUNTER → 2021-02-03 | Outpatient (REF) | payer MEDICARE ==
[2021-02-03 17:22] LABS: HEMATOCRIT 29.9 % (42.0-52.0); HEMOGLOBIN 9.5 g/dl (13.5-17.5); MEAN CORPUSCULAR HEMOGLOBIN 33.5 pg (27.0-33.0); MEAN CORPUSCULAR HGB CONC 31.8 g/dl (32.0-36.5); MEAN CORPUSCULAR VOLUME 105.3 fl (80.0-96.0); PLATELET COUNT, AUTOMATED 185 10^3/uL (150-450); RED BLOOD COUNT 2.84 10^6/uL (4.30-6.10); WHITE BLOOD COUNT 5.4 10^3/uL (4.0-10.0)
[2021-02-03 17:38] LABS: C REACTIVE PROTEIN QUANTITATIV 2.34 MG/DL (0.00-0.30); CALCIUM LEVEL 9.1 MG/DL (8.8-10.2); CREATININE FOR GFR 1.98 MG/DL (0.70-1.30); GLOMERULAR FILTRATION RATE 35.4 (>42)
[2021-02-03 17:51] LABS: ERYTHROCYTE SEDIMENTATION RATE 79 mm/hr (0-20)
== END ==
LOC: M SHH 15:53
PROVIDERS: ATTEND Internal Medicine Infectious Disease
DX: T84.51XA Infection and inflammatory reaction due to internal right hip prosthesis, initial encounter (principal); Y83.1 Surgical operation with implant of artificial internal device as the cause of abnormal reaction of the patient, or of later complication, without mention of misadventure at the time of the procedure

== ENCOUNTER → 2021-02-17 | Outpatient (CLI) | payer MEDICARE ==
[2021-02-17 15:44] LABS: BASO % 0.5 % (0.0-1.0); EOS # 0.5 10^3/uL (0.0-0.5); HEMOGLOBIN 9.8 g/dl (13.5-17.5); LYMPH # 1.3 10^3/uL (1.5-5.0); LYMPH % 22.9 % (24.0-44.0); MEAN CORPUSCULAR HGB CONC 31.6 g/dl (32.0-36.5); MEAN CORPUSCULAR VOLUME 104.4 fl (80.0-96.0); MONO # 0.5 10^3/uL (0.0-0.8); MONO % 8.6 % (2.0-8.0); NEUTROPHILS # 3.4 10^3/uL (1.5-8.5); NEUTROPHILS % 59.8 % (36.0-66.0); PLATELET COUNT, AUTOMATED 179 10^3/uL (150-450); RED BLOOD COUNT 2.97 10^6/uL (4.30-6.10); WHITE BLOOD COUNT 5.6 10^3/uL (4.0-10.0)
[2021-02-17 17:18] LABS: ERYTHROCYTE SEDIMENTATION RATE 63 mm/hr (0-20)
== END ==
LOC: M PLALAB 12:51
PROVIDERS: ATTEND Internal Medicine Infectious Disease
DX: T84.59XD Infection and inflammatory reaction due to other internal joint prosthesis, subsequent encounter (principal)
CPT/HCPCS: 36415; 85025; 85652; 86140; G0463

== ENCOUNTER → 2021-02-24 | Outpatient (REF) | payer MEDICARE ==
[~2021-02-24] MED LIST changes: +ATOR40TA75 PO; +BISAC5TA PO; +C 50TAB PO; +ECOT81TA5 PO; +FURO20TA2 PO; +HYDR25TA PO; +MAGN400T2 PO; +MULT-90 PO; +RIFA30CA PO; +SENO8.6T10 PO
== END ==
LOC: M LAB REF 13:17
PROVIDERS: ATTEND Orthopaedic Surgery Adult Reconstructive Orthopaedic Surgery
DX: T84.53XD Infection and inflammatory reaction due to internal right knee prosthesis, subsequent encounter (principal)

== ENCOUNTER → 2021-02-24 | Outpatient (CLI) | payer MEDICARE | LOC: M SOG 10:50 | PROVIDERS: ATTEND Orthopaedic Surgery Adult Reconstructive Orthopaedic Surgery | DX: Z47.89 Encounter for other orthopedic aftercare (principal); M61.561 Other ossification of muscle, right lower leg; T84.53XD Infection and inflammatory reaction due to internal right knee prosthesis, subsequent encounter; Y83.1 Surgical operation with implant of artificial internal device as the cause of abnormal reaction of the patient, or of later complication, without mention of misadventure at the time of the procedure ==

== ENCOUNTER → 2021-03-07 | Outpatient (CLI) | payer MEDICARE ==
[~2021-03-07] MED LIST changes: -ATOR40TA75 PO; -BISAC5TA PO; -C 50TAB PO; -ECOT81TA5 PO; -FURO20TA2 PO; -HYDR25TA PO; -MAGN400T2 PO; -MULT-90 PO; -RIFA30CA PO; -SENO8.6T10 PO
[2021-03-07 15:09] LABS: BASO % 0.2 % (0.0-1.0); EOS # 0.5 10^3/uL (0.0-0.5); EOS % 8.7 % (0.0-3.0); HEMATOCRIT 29.9 % (42.0-52.0); HEMOGLOBIN 9.7 g/dl (13.5-17.5); LYMPH # 1.4 10^3/uL (1.5-5.0); LYMPH % 26.6 % (24.0-44.0); MEAN CORPUSCULAR HGB CONC 32.4 g/dl (32.0-36.5); MEAN CORPUSCULAR VOLUME 101.7 fl (80.0-96.0); MONO # 0.6 10^3/uL (0.0-0.8); NEUTROPHILS # 2.8 10^3/uL (1.5-8.5); NEUTROPHILS % 52.9 % (36.0-66.0); PLATELET COUNT, AUTOMATED 252 10^3/uL (150-450); RED BLOOD COUNT 2.94 10^6/uL (4.30-6.10); WHITE BLOOD COUNT 5.3 10^3/uL (4.0-10.0)
[2021-03-07 15:39] LABS: ERYTHROCYTE SEDIMENTATION RATE 106 mm/hr (0-20)
== END ==
LOC: M PLALAB 14:05
PROVIDERS: ATTEND Internal Medicine Infectious Disease
DX: T84.59XD Infection and inflammatory reaction due to other internal joint prosthesis, subsequent encounter (principal)

== ENCOUNTER → 2021-04-01 | Outpatient (CLI) | payer MEDICARE ==
[~2021-04-01] MED LIST changes: +ECOT81TA5 PO; +HYDR25TA PO; +SENO8.6T10 PO
[2021-04-01 15:23] LABS: BASO % 0.3 % (0.0-1.0); EOS # 0.5 10^3/uL (0.0-0.5); HEMATOCRIT 31.2 % (42.0-52.0); HEMOGLOBIN 10.2 g/dl (13.5-17.5); LYMPH # 1.4 10^3/uL (1.5-5.0); LYMPH % 20.5 % (24.0-44.0); MEAN CORPUSCULAR HEMOGLOBIN 32.2 pg (27.0-33.0); MEAN CORPUSCULAR HGB CONC 32.7 g/dl (32.0-36.5); MEAN CORPUSCULAR VOLUME 98.4 fl (80.0-96.0); MONO # 0.5 10^3/uL (0.0-0.8); MONO % 7.3 % (2.0-8.0); NEUTROPHILS # 4.4 10^3/uL (1.5-8.5); NEUTROPHILS % 64.6 % (36.0-66.0); PLATELET COUNT, AUTOMATED 177 10^3/uL (150-450); RED BLOOD COUNT 3.17 10^6/uL (4.30-6.10); WHITE BLOOD COUNT 6.8 10^3/uL (4.0-10.0)
[2021-04-01 15:43] LABS: ERYTHROCYTE SEDIMENTATION RATE 72 mm/hr (0-20)
== END ==
LOC: M PLALAB 14:02
PROVIDERS: ATTEND Internal Medicine Infectious Disease
DX: A49.01 Methicillin susceptible Staphylococcus aureus infection, unspecified site (principal)
CPT/HCPCS: 36415; 85025; 85652; 86140; 87040; G0463

== ENCOUNTER → 2021-04-04 | Outpatient (CLI) | payer MEDICARE ==
[~2021-04-04] MED LIST changes: -SENO8.6T10 PO
== END ==
LOC: M LABSMTC 09:18
PROVIDERS: ATTEND Anesthesiology
DX: Z01.812 Encounter for preprocedural laboratory examination (principal); Z20.822 Contact with and (suspected) exposure to COVID-19

== ENCOUNTER 2021-04-09 08:38 | Inpatient (IN) | payer MEDICARE ==
[~2021-04-09] VITALS: Ht 160 cm; Wt 61.7 kg
[~2021-04-09 08:38] MED LIST changes: +ACETAMINOPHEN 500 MG TAB PO ONE; +LR 1,000 ML IV ONE; +NAPROXEN 250 MG TAB PO ONE; +NS 1,000 ML IV ONE; +PREGABALIN 25 MG CAP (LYRICA) PO ONE; +ROPIVA 125MG/EPINEPH 0.25MG/CLONID 40MCG/KETOR 15MG IN NS 50ML SYRINGE PA ONE; +dexameTHASONE 4 MG/ML 1ML VIAL (J1100 PER 1MG) IV ONE
[2021-04-09] MEDS ORDERED: VANCOMYCIN 1000MG/20ML VIAL As Ordered ONE (10:12)
[2021-04-09] MEDS ORDERED: TRANEXAMIC ACID 100 MG/ML 10ML VIAL As Ordered ONE ×2 (10:12→10:38)
[2021-04-09] MEDS ORDERED: LIDOCAINE 2% 100MG/5ML SDV (FOR ANES.) As Ordered ONE (10:20)
[2021-04-09] MEDS ORDERED: ROCURONIUM BROMIDE 50 MG/5 ML VIAL As Ordered ONE ×2 (10:20→12:49)
[2021-04-09] MEDS ORDERED: propofoL 200 MG/20 ML VIAL As Ordered ONE (10:20)
[2021-04-09] MEDS ORDERED: dexameTHASONE 4 MG/ML 1ML VIAL (J1100 PER 1MG) As Ordered ONE ×2 (10:20→10:33)
[2021-04-09] MEDS ORDERED: MIDAZOLAM INJ 2MG/2ML VIAL (J2250 PER 1MG) As Ordered ONE (10:20)
[2021-04-09] MEDS ORDERED: ePHEDrine SULFATE 25 MG/5 ML(5MG/ML) SYRINGE As Ordered ONE (10:20)
[2021-04-09] MEDS ORDERED: ONDANSETRON 4MG/2ML VIAL As Ordered ONE (10:20)
[2021-04-09] MEDS ORDERED: ETOMIDATE INJ 20MG/10ML VIAL As Ordered ONE (10:20)
[2021-04-09] MEDS ORDERED: fentaNYL 100 MCG/2 ML INJECTION (J3010) As Ordered ONE (10:20)
[2021-04-09] MEDS ORDERED: HYDROmorphone HCL 2 MG/ML 1ML VIAL As Ordered ONE (10:20)
[2021-04-09] MEDS ORDERED: ePHEDrine INJ 50 MG/ML VIAL As Ordered ONE (10:56)
[2021-04-09] MEDS ORDERED: SUGAMMADEX SODIUM 500 MG/5 ML VIAL (BRIDION) As Ordered ONE ×2 (11:06→12:49)
[2021-04-09] MEDS ORDERED: PHENYLephrine 500MCG 5ML (100MCG/ML) SYRINGE As Ordered ONE (12:17)
[2021-04-09] MEDS ORDERED: fentaNYL 100 MCG/2 ML INJECTION (J3010) IV PRN (15:55)
[2021-04-09] MEDS ORDERED: ONDANSETRON 4MG/2ML VIAL IV PRN ×2 (15:55→16:20)
[2021-04-09] MEDS ORDERED: oxyCODONE 5MG TAB PO PRN ×2 (15:55→16:20)
[2021-04-09] MEDS ORDERED: LR 1,000 ML IV SCH (15:55)
[2021-04-09] MEDS ORDERED: SENNA 8.6 MG TAB (SENOKOT) PO PRN (16:20)
[2021-04-09] MEDS ORDERED: traMADol 50 MG TAB PO PRN (16:20)
--- NOTE | 2021-04-09 16:22 | REP ---
INDICATION: S/P RIGHT KNEE REVISION COMPARISON: 02/24/2021 a pre operative exam TECHNIQUE: Three views postoperative FINDINGS: Since the last examination a constrained total knee arthroplasty has been placed. The femoral and tibial components are well seated and well approximated. The alignment is near anatomical. There is expected postoperative soft tissue swelling identified. IMPRESSION: Status post TKR as described above. <Electronically signed by Marciano Mac > 04/09/21 1411
[2021-04-09] MEDS: LR 1,000 ML IV SCH (16:25)
--- NOTE | 2021-04-09 16:48 | HPEPDOC ---
[facility] Medical History & Physical Date of Admission Apr 09, 2021 Date of Service: Apr 09, 2021 History and Physical CHIEF COMPLAINT: Infected right prosthetic knee/intractable right knee pain for revision surgery HISTORY OF PRESENT ILLNESS: 76-year-old male with history of prosthetic joint infection of the right knee diagnosed September 2020 MSSA and aortic valve endocarditis with blood culture and knee culture showing MSSA treated with 8 weeks of intravenous nafcillin with elevated inflammatory markers underwent explantation of the prosthesis December 10, 2020 cultures negative for staph aureus but 2 knee cultures positive for coag negative staph hominis and epidermidis methicillin sensitive treated with IV nafcillin continuous infusion and switch to IV cefazolin for 8 weeks completed on 02/04/2021. Patient had remained on oral rifampin and has been complaining of gait imbalance and persistent right knee pain as outpatient and has been using his cane. Patient underwent right total knee revision today. Hospitalist was asked to admit the patient postoperatively. Patient denies fever chills nausea vomiting abdominal pain diarrhea chest pain pressure tightness shortness of breath polyuria polydipsia polyphagia weight gain weight loss changes in appetite skin rashes muscle aches changes in vision sore throat ear discharge cough shortness of breath lightheadedness dizziness. He admits to having persistent pain in the knee and gait imbalance. PAST MEDICAL HISTORY: Aortic valve endocarditis to 4 years 09/2020 CAD iron deficiency anemia prosthetic joint infection of the right knee MSSA 09/2020 failed conservative treatment with debridement and synovectomy status post explantation 12/10/2020 hypertension lumbar degenerative disc disease uses a cane osteoarthritis of the knee status post prosthetic joint replacement hyperlipidemia PAST SURGICAL HISTORY: Right knee replacement 2019 left knee replacement 2017 L1-L5 back surgery 2019 C1-C5 cervical surgery 2012 colonoscopy debridement and synovectomy of prosthetic joint infection right knee September 2020 post explantation of the right knee December 10, 2020 SOCIAL HISTORY: 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 REVIEW OF SYSTEMS: 10 point system review negative aside from positive findings in HPI HOME MEDICATIONS: Please see below. PHYSICAL EXAMINATION: VITAL SIGNS: See below GENERAL APPEARANCE: Awake alert oriented to person place and time answering questions appropriately no respiratory distress cyanosis icterus jaundice speaks in full sentences without facial drooping HEENT: Extraocular muscles intact normocephalic atraumatic no JVD thyromegaly ce rvical lymphadenopathy no tracheal deviation CARDIOVASCULAR: S1-S2 regular rate rhythm 2/6 systolic ejection murmur at the apex radiating to the carotids LUNGS: Air entry is equal bilaterally no kyphosis no scoliosis no adventitious breath sounds clear to auscultation bilaterally ABDOMEN: Positive bowel sounds soft nontender nondistended no hepatosplenomegaly EXTREMITIES: Postop right knee bandaged. Skin color pink warm dry well- perfused. Edema bilaterally LABORATORY DATA: See below. IMAGING: See below MICROBIOLOGY: Please see below. ASSESSMENT: 76-year-old male with infected right prosthetic knee with MSSA previously treated with IV nafcillin cefazolin and oral rifampin status post debridement and explantation now admitted status post revision surgery. Infected right prosthetic knee -Postop management per orthopedic surgery -Check inflammatory markers consult Dr. Betty Umana for antibiotic recommendations. Obtain 2 sets of blood cultures -MSSA, staph hominis/staph epi ,09/2020 failed conservative treatment with debridement and synovectomy status post explantation 12/10/2020 Aortic valve endocarditis 09/2020 -Recently seen by Dr. Somers 2 weeks ago. Last echo was September 2020 Repeat echo planned for 6 months. Completed 8 weeks of IV nafcillin managed by Dr. Umana infectious disease CAD -Resume home meds in the morning if hemodynamically stable iron deficiency anemia -No acute indication for RBC transfusion hypertension -Currently with soft blood pressure systolic of 109 mmHg lumbar degenerative disc disease uses a cane /osteoarthritis of the knee status post prosthetic joint replacement -[facility] consult hyperlipidemia -Check lipid panel in the morning Vital Signs Vital Signs Date Time Temp Pulse Resp B/P (MAP) Pulse Ox O2 Delivery O2 Flow Rate FiO2 04/09/21 16:26 98.8 80 18 102/53 (69) 96 Room Air 04/09/21 15:55 12.0 Home Medications Scheduled Ascorbic Acid (Vitamin C) 500 Mg Tablet, 500 MG PO DAILY Aspirin (Ecotrin) 81 Mg Tablet., 81 MG PO DAILY Atenolol (Atenolol) 25 Mg Tab, 25 MG PO DAILY Atorvastatin Calcium (Atorvastatin Calcium) 20 Mg Tablet, 40 MG PO QHS Calcitriol (Rocaltrol) 0.25 Mcg Capsule, 0.25 MCG PO DAILY MON THRU FRI Cyanocobalamin (Vitamin B-12) (Vitamin B-12) 1,000 Mcg Tablet, 1,000 MCG PO DAILY Gabapentin (Gabapentin) 800 Mg Tab, 800 MG PO BID Hydralazine HCl (Hydralazine HCl) 25 Mg Tablet, 25 MG PO BID L.acidoph/L.bulg/B.bif/S.therm (Bacid Caplet) 1 Each Tablet, 1 TAB PO BIDWM Scheduled PRN Acetaminophen (Acetaminophen) 500 Mg Tablet, 1,000 MG PO Q6H PRN for PAIN / FEVER Allergies Coded Allergies: No Known Allergies (Verified , 03/19/21) A-FIB/CHADSVASC A-FIB History Current/History of A-Fib/PAF?: No Current PO Anticoag Therapy: No Age/Risk Factor Scoring CHADSVASC: CHADSVASC Response (Comments) Value Age Risk Factor Age 65-74 years old 1 Gender Risk Factor Male 0 Hx of CHF No 0 Hx of HTN Yes 1 Hx of Stroke/TIA/or VTE No 0 Hx of Diabetes No 0 Hx of Vascular Disease No 0 Total 2 Treatment Treatment ordered: NONE JAVED JOLLY MD Apr 09, 2021 16:48
[2021-04-09 17:00] VITALS: BP 94/53
--- NOTE | 2021-04-09 17:29 | ROOPDOC ---
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 COMPLICATIONS: No known complications. REMARKS: Tourniquet was inflated for a 60-minute period followed by a 6-minute, Thereafter. Total tourniquet time was 66 minutes Components: [place] triathlon revision knee system Asymmetric patella 38 x 11 mm cemented Triathlon total stabilizer femoral component 5 right TS Triathlon femoral distal augment right 5 mm x 2 Triathlon femoral posterior augment right x2 Triathlon fluted stem 13 mm x 100 mm length TS 4 tibial side Triathlon fluted stem 17 mm diameter x100 mm length TS femoral side Triathlon offset adapter 8 mm Triathlon total knee universal tibial baseplate size 4 Triathlon offset adapter 6 mm Triathlon tibial augment half block size 4 10 mm thickness x2 Antibiotic Simplex x3 Simplex regular x1 FINDINGS: Intraoperative pathology sample sent for neutrophils per high-power field did not demonstrate any persistent signs of inflammation or infection SPECIMENS REMOVED: 5 samples were sent for neutrophils per high-power field for pathology review PROCEDURE NOTE: The patient was evaluated in the preoperative area. There have been no changes since he was seen in the office yesterday. The right lower extremity was marked. Consent was reviewed DESCRIPTION OF PROCEDURE: Patient was brought to the operating room and identified. A surgical checklist was carried out and the patient underwent a general anesthetic. Patient underwent appropriate positioning and padding. The right lower extremity had a tourniquet placed which was inflated periodically t hroughout the procedure as stated above. The right lower extremity was cleansed with chlorhexidine brushes x2 followed by x2 alcohol wash followed by a hydrogen peroxide wash of the incision line. The leg was then sterilely prepped with chlorhexidine once x2. This was allowed to dry for 3 minutes. A standard sterile drape was then applied. The procedure started after a surgical safety checklist and pause were completed. This started with an incision over the existing scar. I did not ellipse out the previous scar incision as the patient did not have a significant amount of soft tissue given the fact that he has had 5 operative procedures to the right knee at this point. Using electrocautery and sharp dissection skin flaps were elevated initially and then a [place] was used to complete these. An arthrotomy was carried out and this included a vastus lateralis split to allow for visualization of the joint and eversion of the patella. A patelloplasty was carried out with electrocautery and excess tissue was removed with electrocautery. The suprapatellar pouch flange of cement was removed. The femoral component was then split midline using an osteotome and then impacted off with very little bone loss. Attention was then turned to the tibial component. Osteotome was used to remove the preformed cement tibial component at the joint line. 1/4 inch osteotome was then used to remove the cement stem which was well fixed. A significant portion of time was utilized in removal of the tibial cement component. Once the components were removed a Monreal was then used to mechanically debride the synovium as well as the bony surfaces. A curette was then used to curettage the small areas. A rongeur was also utilized to help remove soft tissue from the bony surfaces. Of note, 5 pathology specimens for neutrophils per high- power field were taken from the joint fluid the suprapatellar pouch, the intercondylar notch as well as under the femoral component and under the tibial component in the canal. Intraoperatively, discussion with the pathologist revealed that there was no significant neutrophils per high-power field with no persistent signs of inflammation or infection. The decision was then made to proceed with the revision total knee arthroplasty as opposed to another antibiotic spacer. Following the mechanical debridement, and brief irrigation with normal sterile saline occurred. Starter reamers were then used to open up the tibial and femoral canals. The femur was reamed up to 17 mm and the tibia was reamed up to 13 mm. The tibial reamer was left in position and the tibia was prepared. This involved a freshening up cut of the tibial surface which remove primarily lateral bone due to the previous step cut. Given the significant loss of bone a 10 mm augment was placed under the tibial trial and this was pinned in appropriate position and the appropriate offset of the tibial component was determined. This was a size 4 tibial component. Attention was then turned to the femur. Once the tibial reamer was removed the femoral reamer was placed and the 4-in-1 cutting block was placed and the offset device was used to dial in the appropriate position. This was used to freshen up the anterior cut as well as the chamfer cuts and the posterior cuts. In order to bring down the femoral component and reduce augmentation of the joint line 5 mm distal and posterior augments were placed on the femoral trial. Prior to placing the femoral trial the box cutting jig was placed and the box cut for the posterior stabilized or total stabilized prosthesis was placed and completed. This was removed with a rongeur thereafter and electrocautery. A significant period of time was spent on getting the appropriate offset for the tibial and femoral components. The tibia was then prepped utilizing the tibial keel punch. Rotation was appropriately set prior to the pinning for the keel punch. Once all the appropriate cuts have been made, the leg was brought into extension and any bleeders were cauterized with electrocautery. The gaps appeared to be symmetric at approximately 31 mm in flexion and extension. At this time the tourniquet was inflated due to some oozing that was occurring from the soft tissues. Thorough irrigation was then carried out utilizing normal sterile saline using approximately 1.5 L. A dilute Betadine solution was then allowed to soak in the wound. This was then irrigated out with a dilute hydrogen peroxide solution which was immediately irrigated out with an additional 1.5 L of normal sterile saline. Trial components were constructed and placed in position with a 19 mm polyethylene which appeared to be appropriate with balanced flexion and ex tension gaps. The patella was then addressed. Electrocautery was used to remove the soft tissue scar tissue from the surface. A sagittal saw was used to remove 1 to 2 mm after determining a 14 mm thickness. A size 40 then a size 38 were trialed and ultimately a 38 was utilized and the cementing holes were reamed. A lateral facetectomy was carried out as well. The trial components were then removed and cement interdigitation holes were drilled into the femoral and tibial surfaces followed by an additional irrigation that was carried out. The local anesthetic RE CK cocktail was instilled. The final components were assembled on the back table and then antibiotic cement was mixed for placement of the tibial and femoral components which were allowed to sit in position with placement of the 19 mm polyethylene. For cement was applied utilizing the pressurization gun to the tibial surface then the tibia and down to the junction of the stem and tibial base. This was impacted with excess of cement being extruded after appropriate position and rotation was found. Cement was then applied and pressurized to the femur and applied to the femoral component. This was impacted and excess cement was extruded and removed from the edges using a [place]. The 19 mm polyethylene was set in position and the leg was brought into extension and allowed to pressurize. Topical tranexamic acid was then applied to the wound and allowed to sit for more than 3 minutes. Attention was turned to the patella. A separate batch of cement none antibiotic was mixed and applied to the patellar surface and the back of the patellar button. This was then pressurized in position and held with a clamp. Excess extruded cement was removed with a [place]. Once the cement had dried, the clamp was removed. The knee was taken through a range of motion. There was still some slight laxity so the polyethylene was bumped up to the next size which was a 21 mm. This was a more secure fit and a 21 mm polyethylene was opened and and acted after an irrigation of the knee joint. The central TS pin for total stability was impacted through the central hole the post. The knee was taken through full stable range of motion and the total joint replacement was satisfactory. A thorough irrigation was then carried out including a Betadine wash. Closure of the capsule was carried out utilizing #1 Prolene interrupted followed by running suture. 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 Previously I described to the patient that this could not be removed as it would leave him without any functioning quads. I was able to work around these bony islands of heterotopic bone with some difficulty to perform an appropriate closure. A full-thickness closure using interrupted and a running locking suture was then utilized for the skin and subcutaneous tissue after the previous layer was irrigated with a dilute Betadine solution. The wound was then cleansed with normal sterile saline. Some Mastisol was applied and a customizable Prevena dressing was applied and hooked up to 125 mmHg for Prevena incisional VAC therapy. Leg was then wrapped in an Ernesto wrap. Patient tolerated the procedure well with no known complications. He will be admitted overnight. He will have postoperative antibiotics and will be sent home on a 10-day course of Bactrim. He will be monitored for anemia given his history for need for blood transfusion. The hospitalist service has been involved for admission and consult for his care. I have updated Dr. Umana of infectious disease that he had surgery today as well. DAVID TILLMAN MD Apr 09, 2021 17:29
[2021-04-09 17:30] VITALS: BP 95/55
[2021-04-09 17:41] LABS: BASO % 0.1 % (0.0-1.0); HEMATOCRIT 26.1 % (42.0-52.0); HEMOGLOBIN 8.2 g/dl (13.5-17.5); LYMPH # 0.4 10^3/uL (1.5-5.0); LYMPH % 3.7 % (24.0-44.0); MEAN CORPUSCULAR HGB CONC 31.4 g/dl (32.0-36.5); MONO # 0.1 10^3/uL (0.0-0.8); MONO % 0.6 % (2.0-8.0); PLATELET COUNT, AUTOMATED 221 10^3/uL (150-450); RED BLOOD COUNT 2.56 10^6/uL (4.30-6.10); WHITE BLOOD COUNT 10.5 10^3/uL (4.0-10.0)
[2021-04-09] MEDS: ACETAMINOPHEN TAB 650MG DOSE (2X325MG) PO SCH ×2 (17:53→23:43)
[2021-04-09 17:59] LABS: ALBUMIN 2.7 GM/DL (3.2-5.2); BILIRUBIN,TOTAL 0.3 MG/DL (0.2-1.0); C REACTIVE PROTEIN QUANTITATIV 0.58 MG/DL (0.00-0.30); CALCIUM LEVEL 8.8 MG/DL (8.8-10.2); CREATININE FOR GFR 2.16 MG/DL (0.70-1.30); TOTAL PROTEIN 6.1 GM/DL (6.4-8.2)
[2021-04-09 18:30] VITALS: BP 97/56
[2021-04-09 19:30] VITALS: BP 83/45
[2021-04-09] MEDS ORDERED: LR 1,000 ML IV ONE (20:00)
[2021-04-09] MEDS: ASPIRIN 81MG ENTERIC TABLET PO SCH (20:26)
[2021-04-09] MEDS: NAPROXEN 250 MG TAB PO SCH (20:28)
[2021-04-09] MEDS: DOCUSATE SODIUM 100MG CAPSULE PO SCH (20:29)
[2021-04-09 21:12] LABS: ERYTHROCYTE SEDIMENTATION RATE 56 mm/hr (0-20)
[2021-04-09 22:13] VITALS: BP 105/56
[2021-04-09] MEDS: VANCOMYCIN HCL 1,000 MG, VIAL MATE ADAPTER 1 EACH in NS 250 ML IV SCH (23:40)
[2021-04-10] VITALS (11 sets, daily range): BP systolic 107–126; BP diastolic 46–78
[2021-04-10] MEDS: LR 1,000 ML IV SCH ×3 (02:03→22:25)
[2021-04-10] MEDS: ACETAMINOPHEN TAB 650MG DOSE (2X325MG) PO SCH ×3 (05:38→18:20)
[2021-04-10 06:29] LABS: BASO % 0.1 % (0.0-1.0); HEMATOCRIT 22.5 % (42.0-52.0); HEMOGLOBIN 7.2 g/dl (13.5-17.5); LYMPH # 0.7 10^3/uL (1.5-5.0); LYMPH % 5.1 % (24.0-44.0); MEAN CORPUSCULAR HEMOGLOBIN 32.4 pg (27.0-33.0); MEAN CORPUSCULAR VOLUME 101.4 fl (80.0-96.0); MONO # 0.9 10^3/uL (0.0-0.8); MONO % 6.6 % (2.0-8.0); NEUTROPHILS # 12.1 10^3/uL (1.5-8.5); NEUTROPHILS % 87.8 % (36.0-66.0); PLATELET COUNT, AUTOMATED 190 10^3/uL (150-450); RED BLOOD COUNT 2.22 10^6/uL (4.30-6.10); WHITE BLOOD COUNT 13.8 10^3/uL (4.0-10.0)
[2021-04-10 06:56] LABS: ALBUMIN 2.4 GM/DL (3.2-5.2); CALCIUM LEVEL 7.9 MG/DL (8.8-10.2); CREATININE FOR GFR 2.13 MG/DL (0.70-1.30); GLOMERULAR FILTRATION RATE 32.5 (>42); PHOSPHORUS LEVEL 2.5 MG/DL (2.5-4.9); POTASSIUM SERUM 4.8 MEQ/L (3.5-5.1)
--- NOTE | 2021-04-10 07:43 | IPNPDOC ---
Date Seen The patient was seen on 04/10/21. Progress Note SUBJECTIVE: anemic overnight, but no sob, cp, lightheadedness, hemoptysis, hematemesis, brbpr. drain had minimal blood. PHYSICAL EXAMINATION: VITAL SIGNS: See below GENERAL APPEARANCE: Awake alert oriented to person place and time answering questions appropriately no respiratory distress cyanosis icterus jaundice speaks in full sentences without facial drooping pallor HEENT: Extraocular muscles intact normocephalic atraumatic no JVD thyromegaly cervical lymphadenopathy no tracheal deviation CARDIOVASCULAR: S1-S2 regular rate rhythm 2/6 systolic ejection murmur at the apex radiating to the carotids LUNGS: Air entry is equal bilaterally no kyphosis no scoliosis no adventitious breath sounds clear to auscultation bilaterally ABDOMEN: Positive bowel sounds soft nontender nondistended no hepatosplenomegaly EXTREMITIES: Postop right knee bandaged. minimal bloody drainage Skin color pink warm dry well-perfused. Edema bilaterally LABORATORY DATA: See below. IMAGING: See below MICROBIOLOGY: Please see below. ASSESSMENT: 76-year-old male with infected right prosthetic knee with MSSA previously treated with IV nafcillin cefazolin and oral rifampin status post debridement and explantation now admitted status post revision surgery. Infected right prosthetic knee -Postop management per orthopedic surgery -day#2 vancomycin renally dosed by pharmacy -ID consulted Dr. Betty Umana for antibiotic recommendations. Obtained 2 sets of blood cultures -MSSA, staph hominis/staph epi ,09/2020 failed conservative treatment with debridement and synovectomy status post explantation 12/10/2020 -hypotensive 04/09/21 [id number] Aortic valve endocarditis 09/2020 -Recently seen by Dr. Somers 2 weeks ago. Last echo was September 2020 Repeat echo planned for 6 months. CKD3 -at baseline creatinine. avoid nephrotoxins. pharmacy renally dosing all meds especially vanco. CAD -Resume home meds in the morning if hemodynamically stable iron deficiency anemia -hgb 7 04/10/21 -consented for rbc transfusion. -2u rbc transfusion hypertension -Currently with soft blood pressure systolic of 109 mmHg and hypotensive overnight. lumbar degenerative disc disease uses a cane /osteoarthritis of the knee status post prosthetic joint replacement -ARU consult hyperlipidemia -chronic VS, I&O, 24H, Fishbone Vital Signs/I&O Vital Signs Date Time Temp Pulse Resp B/P (MAP) Pulse Ox O2 Delivery O2 Flow Rate FiO2 04/10/21 02:10 74 107/55 (72) 04/09/21 19:30 97.4 19 96 Room Air 04/09/21 15:55 12.0 I&O- Last 24 Hours up to 6 AM 04/10/21 06:00 Intake Total 3270 ml Output Total 475 ml Balance 2795 ml Laboratory Data 24H LABS Laboratory Tests 2 04/09/21 17:02: Immature Granulocyte % (Auto) 0.6, Neutrophils (%) (Auto) 95.0H, Lymphocytes (%) (Auto) 3.7L, Monocytes (%) (Auto) 0.6L, Eosinophils (%) (Auto) 0.0, Basophils (%) (Auto) 0.1, Neutrophils # (Auto) 10.0H, Lymphocytes # (Auto) 0.4L, Monocytes # (Auto) 0.1, Eosinophils # (Auto) 0.0, Basophils # (Auto) 0.0, Nucleated Red Blood Cells % (auto) 0.0, Erythrocyte Sedimentation Rate 56H, Anion Gap 6L, Glomerular Filtration Rate 32.0L, Calcium Level 8.8, Total Bilirubin 0.3, Aspartate Amino Transf (AST/SGOT) 19, Alanine Aminotransferase (ALT/SGPT) 27, Alkaline Phosphatase 81, C-Reactive Protein, Quantitative 0.58H, Total Protein 6.1L, Albumin 2.7L, Albumin/Globulin Ratio 0.8, Procalcitonin <0.05 04/10/21 05:56: Immature Granulocyte % (Auto) 0.4, Neutrophils (%) (Auto) 87.8H, Lymphocytes (%) (Auto) 5.1L, Monocytes (%) (Auto) 6.6, Eosinophils (%) (Auto) 0.0, Basophils (%) (Auto) 0.1, Neutrophils # (Auto) 12.1H, Lymphocytes # (Auto) 0.7L, Monocytes # (Auto) 0.9H, Eosinophils # (Auto) 0.0, Basophils # (Auto) 0.0, Nucleated Red Blood Cells % (auto) 0.0, Anion Gap 11, Glomerular Filtration Rate 32.5L, Calcium Level 7.9L, Albumin 2.4L, Phosphorus Level 2.5 CBC/BMP Laboratory Tests 04/09/21 17:02 04/10/21 05:56 Microbiology Microbiology 04/09/21 Blood Culture, Received Pending JAVED JOLLY MD Apr 10, 2021 07:43
[2021-04-10 08:11] LABS: HEMATOCRIT 22.3 % (42.0-52.0); HEMOGLOBIN 7.1 g/dl (13.5-17.5)
[2021-04-10] MEDS: ASPIRIN 81MG ENTERIC TABLET PO SCH ×2 (08:26→20:26)
[2021-04-10] MEDS: ASCORBIC ACID 500 MG TAB PO SCH (08:27)
[2021-04-10] MEDS: DOCUSATE SODIUM 100MG CAPSULE PO SCH ×2 (08:27→20:27)
[2021-04-10] MEDS: oxyCODONE 5MG TAB PO PRN (08:27)
[2021-04-10] MEDS: NAPROXEN 250 MG TAB PO SCH ×2 (08:28→20:27)
[2021-04-10] MEDS: FERROUS SULFATE 325MG TAB PO SCH (08:29)
--- NOTE | 2021-04-10 08:36 | IPNPDOC ---
Text Note Date of Service The patient was seen on 04/10/21. NOTE Postop day 1 for stage II revision right total knee arthroplasty Patient is doing well. He reports that he did not have a lot of sleep last night; however this was not due to pain. He has not been out of bed yet. Otherwise he report reports no significant complaints or concerns. Dressing intact. Ernesto wrap taken down. The [place] incisional VAC is in position with no signs of leakage or excessive drainage. No collection in the canister minimal serosanguineous fluid in the drain pipe. Patient does have a history of a right foot and ankle foot drop. He is able to move his ankle with about 15 degrees of dorsiflexion. He is moving his toes. He has intact light sensation to the right foot grossly. Palpable posterior tibial and dorsalis pedis pulses. Extremity is warm X-ray imaging was independently ordered and reviewed by myself. This imaging was done in recovery. This demonstrated the revision right total knee arthroplasty prosthesis in position without any obvious signs of complication. No evidence of periprosthetic Patient being evaluated by hospitalist service. Blood transfusion has been ordered based on low hemoglobin this morning. Dr. Umana of infectious disease will be involved with the patient. The patient will work with physical therapy today. Discharge home today unlikely. Will reevaluate tomorrow. Physical therapy range of motion will be limited from 0 to about 30 to 45 degrees at this time. For right lower extremity Patient will be reevaluated tomorrow morning. VS,Fishbone, I+O VS, Fishbone, I+O Laboratory Tests 04/09/21 17:02 04/10/21 05:56 04/10/21 07:47 Vital Signs Date Time Temp Pulse Resp B/P (MAP) Pulse Ox O2 Delivery O2 Flow Rate FiO2 04/10/21 08:27 18 Room Air 04/10/21 02:10 74 107/55 (72) 04/09/21 19:30 97.4 96 04/09/21 15:55 12.0 I&O- Last 24 Hours up to 6 AM 04/10/21 06:00 Intake Total 3270 ml Output Total 475 ml Balance 2795 ml STEPHEN TILLMAN MD Apr 10, 2021 08:36
[2021-04-10] MEDS: VANCOMYCIN HCL 1,000 MG, VIAL MATE ADAPTER 1 EACH in NS 250 ML IV SCH (12:19)
[2021-04-11] MEDS: ACETAMINOPHEN TAB 650MG DOSE (2X325MG) PO SCH ×3 (00:15→13:30)
[2021-04-11 06:45] LABS: BASO % 0.5 % (0.0-1.0); EOS # 0.8 10^3/uL (0.0-0.5); EOS % 9.5 % (0.0-3.0); HEMATOCRIT 26.6 % (42.0-52.0); HEMOGLOBIN 8.6 g/dl (13.5-17.5); LYMPH # 1.2 10^3/uL (1.5-5.0); LYMPH % 14.5 % (24.0-44.0); MEAN CORPUSCULAR HEMOGLOBIN 31.9 pg (27.0-33.0); MEAN CORPUSCULAR HGB CONC 32.3 g/dl (32.0-36.5); MEAN CORPUSCULAR VOLUME 98.5 fl (80.0-96.0); MONO # 0.6 10^3/uL (0.0-0.8); MONO % 7.4 % (2.0-8.0); NEUTROPHILS # 5.7 10^3/uL (1.5-8.5); NEUTROPHILS % 67.9 % (36.0-66.0); PLATELET COUNT, AUTOMATED 162 10^3/uL (150-450); WHITE BLOOD COUNT 8.4 10^3/uL (4.0-10.0)
[2021-04-11 06:54] VITALS: BP 128/77
[2021-04-11 07:08] LABS: ALBUMIN 2.3 GM/DL (3.2-5.2); CREATININE FOR GFR 1.76 MG/DL (0.70-1.30); GLOMERULAR FILTRATION RATE 40.5 (>42); PHOSPHORUS LEVEL 2.3 MG/DL (2.5-4.9); POTASSIUM SERUM 4.7 MEQ/L (3.5-5.1)
[2021-04-11] MEDS: ASPIRIN 81MG ENTERIC TABLET PO SCH (07:39)
[2021-04-11] MEDS: NAPROXEN 250 MG TAB PO SCH (07:40)
[2021-04-11] MEDS: FERROUS SULFATE 325MG TAB PO SCH (07:40)
[2021-04-11] MEDS: DOCUSATE SODIUM 100MG CAPSULE PO SCH (07:40)
[2021-04-11] MEDS: oxyCODONE 5MG TAB PO PRN (07:42)
[2021-04-11] MEDS: ASCORBIC ACID 500 MG TAB PO SCH (07:42)
--- NOTE | 2021-04-11 09:32 | IPNPDOC ---
Text Note Date of Service The patient was seen on 04/11/21. NOTE Postop day 2 for revision right total knee arthroplasty for infection Patient is doing well. He states that he received a blood transfusion of 2 units yesterday. He denies any complaints including chest pain or shortness of breath. He was able to mobilize weightbearing as tolerated with a walker to the bathroom. He states that he spoke with Dr. Umana of infectious disease and she stated that everything was going well and it sounds as if there are no plans for any continued treatment at this time. The patient's Prevena dressing is in position. There is no sign of any leakage or seal disruption. There is approximately 150 mL of the desiccated serosanguineous fluid in the collection container. He is still able to move his foot and ankle is grossly neurovascular intact to the right foot The patient will be evaluated by the hospitalist service and physical therapy with likely discharge home if everything else remained stable. I will prescribe him an antibiotic for prophylaxis due to the revision and risk associated with the procedure. This will be prescribed through my office system, [employer]. Discharge Instructions Total Knee Arthroplasty 1. Pain: You may take oxycodone as prescribed for pain. Supplement and Tylenol as needed. Ice pack to operative knee as tolerated. 2. Wound care: Remove dressing on postop day 7. Call [phone] with any questions or concerns. Hygiene: The patient may shower. No tub baths. Check dressing seal prior to bathing. 3. Activity: WBAT right lower extremity. Front wheeled walker versus crutches for ambulation. Fall precautions. 4. Driving: No driving until cleared by your surgeon. Do not drive if taking narcotic pain medications as these may make you drowsy. 5. DVT Prophylaxis: Continue taking aspirin 81 mg p.o. twice daily as prescribed for the prevention of blood clots. Ankle pumps every 1 hour while awake. CHAI hose at all times for 1 month after surgery. May remove for hygiene and wound care. 6. Placement: Plan is to discharge patient to home with home health including nursing and physical therapy. 7. Surgeon Follow-up: The patient is scheduled to be seen in Dr. Tillman's office 2 weeks post op with xrays. 8. Primary care Follow-up: Please see your primary care provider in the next 2 to 5 weeks for general medical re-evaluation and medication review. 9. Labs: CBC without differential and BMP to be drawn on postop day 3 with results to PCP and please fax to [phone]. 10. Please contact [facility] if you have any questions or concerns at [phone]. VS,Fishbone, I+O VS, Fishbone, I+O Laboratory Tests 04/11/21 06:08 Vital Signs Date Time Temp Pulse Resp B/P (MAP) Pulse Ox O2 Delivery O2 Flow Rate FiO2 04/11/21 07:42 18 Room Air 04/11/21 06:54 97.7 64 128/77 (94) 97 04/09/21 15:55 12.0 I&O- Last 24 Hours up to 6 AM 04/11/21 05:59 Intake Total 2870 ml Output Total 750 ml Balance 2120 ml STEPHEN TILLMAN MD Apr 11, 2021 09:32
[2021-04-11] MEDS ORDERED: SENO8.6T10 PO (10:04)
[2021-04-11] MEDS ORDERED: OXYC-517 PO (10:04)
[2021-04-11] MEDS ORDERED: ASPI-551 PO (10:04)
--- NOTE | 2021-04-11 12:16 | DS.PDOC ---
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 Patient had remained on oral rifampin and has been complaining of gait imbalance and persistent right knee pain as outpatient and has been using his cane. Patient underwent right total knee revision stage 2 04/09/21. Hospitalist was asked to admit the patient postoperatively. Patient denies fever chills nausea vomiting abdominal pain diarrhea chest pain pressure tightness shortness of breath polyuria polydipsia polyphagia weight gain weight loss changes in appetite skin rashes muscle aches changes in vision sore throat ear discharge cough shortness of breath lightheadedness dizziness. He admits to having persistent pain in the knee and gait imbalance. Infected right prosthetic knee -Postop management per orthopedic surgery -day#3 vancomycin renally dosed by pharmacy -ID consulted Dr. Betty Umana for antibiotic recommendations. Obtained 2 sets of blood cultures -MSSA, staph hominis/staph epi ,09/2020 failed conservative treatment with debridement and synovectomy status post explantation 12/10/2020 -hypotensive 04/09/21 [id number] -per ID, no discharge antibiotics. -prn pain meds Aortic valve endocarditis 09/2020 -Recently seen by Dr. Somers 2 weeks ago. Last echo was September 2020 Repeat echo planned for 6 months. CKD3 -at baseline creatinine. avoid nephrotoxins. pharmacy renally dosing all meds especially vanco. CAD -Resume home meds in the morning if hemodynamically stable iron deficiency anemia -hgb 7 04/10/21 -consented for rbc transfusion. -2u rbc transfusion hypertension -stable. holding parameters on home meds. lumbar degenerative disc disease uses a cane /osteoarthritis of the knee status post prosthetic joint replacement -pt/ot hyperlipidemia -chronic DISCHARGE PHYSICAL EXAMINATION: VITAL SIGNS: See below GENERAL APPEARANCE: Awake alert oriented to person place and time answering questions appropriately no respiratory distress cyanosis icterus jaundice speaks in full sentences without facial drooping pallor HEENT: Extraocular muscles intact normocephalic atraumatic no JVD thyromegaly cervical lymphadenopathy no tracheal deviation CARDIOVASCULAR: S1-S2 regular rate rhythm 2/6 systolic ejection murmur at the apex radiating to the carotids LUNGS: Air entry is equal bilaterally no kyphosis no scoliosis no adventitious breath sounds clear to auscultation bilaterally ABDOMEN: Positive bowel sounds soft nontender nondistended no hepatosplenomegaly EXTREMITIES: Postop right knee bandaged. minimal bloody drainage Skin color pink warm dry well-perfused. DISCHARGE LABORATORY DATA/IMAGING STUDIES/MICROBIOLOGY: SEE BELOW TIME SPENT ON DISCHARGE: 30 MIN Vital Signs/I&Os Vital Signs Date Time Temp Pulse Resp B/P (MAP) Pulse Ox O2 Delivery O2 Flow Rate FiO2 04/11/21 08:12 18 Room Air 04/11/21 06:54 97.7 64 128/77 (94) 97 04/09/21 15:55 12.0 I&O- Last 24 Hours up to 6 AM 04/11/21 06:00 Intake Total 2870 ml Output Total 750 ml Balance 2120 ml Laboratory Data Labs 24H Laboratory Tests 2 04/11/21 06:08: Immature Granulocyte % (Auto) 0.2, Neutrophils (%) (Auto) 67.9H, Lymphocytes (%) (Auto) 14.5L, Monocytes (%) (Auto) 7.4, Eosinophils (%) (Auto) 9.5H, Basophils (%) (Auto) 0.5, Neutrophils # (Auto) 5.7, Lymphocytes # (Auto) 1.2L, Monocytes # (Auto) 0.6, Eosinophils # (Auto) 0.8H, Basophils # (Auto) 0.0, Nucleated Red Blood Cells % (auto) 0.0, Anion Gap 4L, Glomerular Filtration Rate 40.5L, Calcium Level 8.0L, Phosphorus Level 2.3L, Albumin 2.3L CBC/BMP Laboratory Tests 04/11/21 06:08 Microbiology Microbiology 04/10/21 Blood Culture - Preliminary, Resulted No growth after 24 hours . All specim... 04/09/21 Blood Culture - Preliminary, Resulted No growth after 24 hours . All specim... Discharge Medications Scheduled Ascorbic Acid (Vitamin C) 500 Mg Tablet, 500 MG PO DAILY Aspirin (Aspirin EC) 81 Mg Tablet.dr, 81 MG PO BID Atenolol (Atenolol) 25 Mg Tab, 25 MG PO DAILY, (Reported) Atorvastatin Calcium (Atorvastatin Calcium) 20 Mg Tablet, 40 MG PO QHS Calcitriol (Rocaltrol) 0.25 Mcg Capsule, 0.25 MCG PO DAILY, (Reported) MON THRU FRI Cyanocobalamin (Vitamin B-12) (Vitamin B-12) 1,000 Mcg Tablet, 1,000 MCG PO DAILY, (Reported) Gabapentin (Gabapentin) 800 Mg Tab, 800 MG PO BID, (Reported) Hydralazine HCl (Hydralazine HCl) 25 Mg Tablet, 25 MG PO BID, (Reported) L.acidoph/L.bulg/B.bif/S.therm (Bacid Caplet) 1 Each Tablet, 1 TAB PO BIDWM, (Reported) Scheduled PRN Acetaminophen (Acetaminophen) 500 Mg Tablet, 1,000 MG PO Q6H PRN for PAIN / FEVER, (Reported) Oxycodone HCl (Oxycodone HCl) 5 Mg Tablet, 10 MG PO Q4HP PRN for SEVERE PAIN (PS 9-10) Oxycodone HCl (Oxycodone HCl) 5 Mg Tablet, 5 MG PO Q4HP PRN for MODERATE PAIN (PS 5-8) Sennosides/Docusate Sodium (Senokot-S Tablet) 1 Each Tablet, 1 TAB PO BIDP PRN for BOWEL CARE/CONSTIPATION Allergies Coded Allergies: No Known Allergies (Verified , 03/19/21) JAVED JOLLY MD Apr 11, 2021 12:15
--- NOTE | 2021-04-11 12:30 | CR ---
CONSULTATION DATE: 04/10/2021 REASON FOR CONSULTATION: Asked to consult by Dr. Jose for evaluation of prosthetic knee infection status post reimplantation procedure. HISTORY OF PRESENT ILLNESS: Mr. Nathan is a pleasant 76-year-old gentleman with history of prosthetic right knee infection diagnosed in September of 2020 with culture positive for MSSA and aortic valve endocarditis. The patient was initially treated with 8 weeks of IV Nafcillin after he had incision and drainage with synovectomy. Endocarditis resolved but the patient had persistent right knee swelling and pain and therefore he went back to the operating room on December 10 for explantation of the prosthesis after he had failed one-step procedure with drainage and 8 weeks of Nafcillin and Rifampin. The patient was treated again with another 8 week course of antibiotics including combination of Nafcillin, Cephazolin and Rifampin and antibiotics were discontinued on February 04. The patient was doing well, knee pain had markedly improved. He was able to ambulate. His big concern was he still had an elevated ESR although markedly better than before. Preoperatively his sed rate was 72 and CRP was 0.83 but the patient had no symptoms. Blood cultures preoperatively were negative. The patient had reimplantation of the prosthesis done by Dr. Hernández. He had frozen sections from the OR which showed no evidence of acute inflammation on four different biopsies and therefore reimplantation procedure was done. The patient received perioperatively IV Vancomycin. He feels great. He denies any fever, chills, no nausea, vomiting or diarrhea. No abdominal pain. The patient was told he could be discharged home tomorrow. MEDICAL HISTORY: Significant for aortic valve endocarditis with Staphylococcus aureus, MSSA diagnosed September,; coronary artery disease; iron deficiency anemia; prosthetic joint infection of the right knee; failed conservative treatment and had debridement and synovectomy; status post explantation on 12/10/2020; history of essential hypertension; degenerative disk disease of lumbar spine; osteoarthritis of the knees; hyperlipidemia. SURGICAL HISTORY: Right knee replacement February,; explantation of prosthesis December 10, 2020; left total knee replacement May,; lumbar back surgery 2019; cervical surgery 2012. SOCIAL HISTORY: He is , he lives with his . He works part-time at [employer]. ALLERGIES: NO KNOWN DRUG ALLERGIES. REVIEW OF SYSTEMS: He has chronic right knee pain and back pain. He denies any fever, chills, nausea, vomiting, diarrhea, abdominal pain. No cough or shortness of breath. No other concerns. MEDICATIONS: 1. Ferrous sulfate 325 mg PO daily. 2. Vitamin C 500 mg PO daily. 3. Vancomycin 1 gm IV every 12 hours. 4. Aspirin 81 mg PO twice daily. 5. Colace 100 mg PO twice daily. 6. Naproxen 250 mg PO every 12 hours. 7. Tylenol 650 mg PO every 6 hours. 8. Senokot two tablets PO twice daily PRN. 9. Zofran 4 mg IV every 6 hours. 10. Percocet 1-2 tablets every 4 hours PRN. 11. Tramadol 50 mg PO every 6 hours PRN. LABORATORY DATA: Postoperatively white count was 13.8, hemoglobin 7.2, hematocrit 22.5, platelets 190. 87% neutrophils, 5% leukocytes, 6% monocytes. ESR 56. Sodium 143, potassium 4.8, chloride 108, bicarb 24, BUN 37, creatinine 2.13, glucose 118, calcium 7.9, phosphorus 2.5, albumin 2.4. Blood cultures two sets no growth on 04/09 and 04/10. PHYSICAL EXAMINATION: GENERAL: Healthy looking gentleman in no acute distress. HEART: Normal S1, S2, regular with systolic ejection murmur 2/6 at the apex. LUNGS: Clear, no wheezes, rhonchi or rales. ABDOMEN: Soft, nontender, no hepatosplenomegaly. EXTREMITIES: Postoperative knee dressing with Optifoam, no drainage on the bandage. Right calf has no tenderness, right leg is slightly more swollen than the left, no open wounds, no tenderness, +1 ankle edema. BACK: No CVA or lumbosacral tenderness. IMPRESSION: This is a 76-year-old gentleman with history of right knee prosthetic joint infection with MSSA who was admitted for reimplantation after he finished an 8 week course of IV antibiotics with Rifampin. He had frozen sections on four different areas of the knee with no evidence of infection and had reimplantation procedure. The patient is doing well, he does not need IV antibiotics. He has history of iron deficiency anemia and severe anemia requiring blood transfusion and therefore has received 2 units of blood today. I would definitely avoid using antiinflammatory, NSAID, he is on Naproxen 250 mg every 12 hours, with his chronic kidney disease and anemia. PLAN: 1. Discontinue Naproxen. Use Tramadol or Percocet for pain. 2. Discontinue IV Vancomycin. Hopefully the patient can be discharged home tomorrow. KURT
== END 2021-04-11 16:15 | disposition home health service (06) | DRG 468 ==
LOC: M OR 08:38 → M MS5PR 16:45
PROVIDERS: ADMIT Orthopaedic Surgery Adult Reconstructive Orthopaedic Surgery; ATTEND Orthopaedic Surgery Adult Reconstructive Orthopaedic Surgery
PROC: 0SPC08Z Removal of Spacer from Right Knee Joint, Open Approach (ICD-10-PCS; 2021-04-09)
PROC: 0SPC0JZ Removal of Synthetic Substitute from Right Knee Joint, Open Approach (ICD-10-PCS; 2021-04-09)
PROC: 0SRC0J9 Replacement of Right Knee Joint with Synthetic Substitute, Cemented, Open Approach (ICD-10-PCS; principal; 2021-04-09 11:30)
PROC: 30233N1 Transfusion of Nonautologous Red Blood Cells into Peripheral Vein, Percutaneous Approach (ICD-10-PCS; 2021-04-10)
DX: T84.53XA Infection and inflammatory reaction due to internal right knee prosthesis, initial encounter (principal); I35.8 Other nonrheumatic aortic valve disorders; N18.30 Chronic kidney disease, stage 3 unspecified; I25.10 Atherosclerotic heart disease of native coronary artery without angina pectoris; I12.9 Hypertensive chronic kidney disease with stage 1 through stage 4 chronic kidney disease, or unspecified chronic kidney disease; D50.9 Iron deficiency anemia, unspecified; M51.36 Other intervertebral disc degeneration, lumbar region; E78.5 Hyperlipidemia, unspecified; Z98.1 Arthrodesis status; Z79.82 Long term (current) use of aspirin; Z79.899 Other long term (current) drug therapy

== ENCOUNTER → 2021-04-15 | Outpatient (REF) | payer MEDICARE ==
[~2021-04-15] MED LIST changes: -ACETAMINOPHEN 500 MG TAB PO ONE; -LR 1,000 ML IV ONE; -NAPROXEN 250 MG TAB PO ONE; -NS 1,000 ML IV ONE; -PREGABALIN 25 MG CAP (LYRICA) PO ONE; -ROPIVA 125MG/EPINEPH 0.25MG/CLONID 40MCG/KETOR 15MG IN NS 50ML SYRINGE PA ONE; +SENO8.6T10 PO; -dexameTHASONE 4 MG/ML 1ML VIAL (J1100 PER 1MG) IV ONE
[2021-04-15 15:00] LABS: BASO % 0.4 % (0.0-1.0); EOS # 0.6 10^3/uL (0.0-0.5); EOS % 7.7 % (0.0-3.0); HEMATOCRIT 32.3 % (42.0-52.0); HEMOGLOBIN 10.4 g/dl (13.5-17.5); LYMPH # 1.2 10^3/uL (1.5-5.0); LYMPH % 14.8 % (24.0-44.0); MEAN CORPUSCULAR HEMOGLOBIN 32.3 pg (27.0-33.0); MEAN CORPUSCULAR HGB CONC 32.2 g/dl (32.0-36.5); MEAN CORPUSCULAR VOLUME 100.3 fl (80.0-96.0); MONO # 0.7 10^3/uL (0.0-0.8); MONO % 9.3 % (2.0-8.0); NEUTROPHILS # 5.3 10^3/uL (1.5-8.5); NEUTROPHILS % 67.4 % (36.0-66.0); PLATELET COUNT, AUTOMATED 224 10^3/uL (150-450); RED BLOOD COUNT 3.22 10^6/uL (4.30-6.10); WHITE BLOOD COUNT 7.9 10^3/uL (4.0-10.0)
== END ==
LOC: M SHH 14:48
PROVIDERS: ATTEND Orthopaedic Surgery Adult Reconstructive Orthopaedic Surgery
DX: Z48.89 Encounter for other specified surgical aftercare (principal); Z96.651 Presence of right artificial knee joint

== ENCOUNTER → 2021-04-21 | Outpatient (REF) | payer MEDICARE ==
[~2021-04-21] MED LIST changes: +ATOR40TA75 PO; +C 50TAB PO; +FURO20TA2 PO; +MULT-90 PO
[2021-04-21 17:36] LABS: C REACTIVE PROTEIN QUANTITATIV 2.11 MG/DL (0.00-0.30); PERCENT SATURATION 24.1 % (19.7-50.0)
== END ==
LOC: M LAB REF 16:18
PROVIDERS: ATTEND Internal Medicine
DX: T84.53XD Infection and inflammatory reaction due to internal right knee prosthesis, subsequent encounter (principal); D64.9 Anemia, unspecified
CPT/HCPCS: 82728; 83550; 86140; 90682; G0008; G0463

== ENCOUNTER → 2021-04-25 | Outpatient (CLI) | payer MEDICARE ==
[~2021-04-25] MED LIST changes: -ATOR40TA75 PO; -C 50TAB PO; -FURO20TA2 PO; -MULT-90 PO
--- NOTE | 2021-04-25 09:37 | REP ---
INDICATION: RT ARTIFICIAL KNEE. COMPARISON: 04/09/2021 TECHNIQUE: AP, sunrise and lateral views of the right knee FINDINGS: Right knee replacement again noted with orthopedic hardware in stable position. Extensive heterotopic ossification in the surrounding soft tissues along with soft tissue swelling and joint effusion identified. Oakes view suggests a laceration over the patella which should be correlated clinically. IMPRESSION: Postsurgical and chronic changes. Acute soft tissue swelling, effusion and possible laceration require correlation. <Electronically signed by Rob Funes > 04/25/21 [id number]
== END ==
LOC: M SOG 08:14
PROVIDERS: ATTEND Orthopaedic Surgery Adult Reconstructive Orthopaedic Surgery
DX: Z96.651 Presence of right artificial knee joint (principal); M79.89 Other specified soft tissue disorders; M25.461 Effusion, right knee

== ENCOUNTER 2021-05-09 10:05 | Inpatient (IN) | payer MEDICARE ==
[~2021-05-09] VITALS: Ht 157.5 cm; Wt 63.2 kg
[2021-05-09] MEDS: GABAPENTIN 300 MG CAP PO SCH ×2 (09:00→21:00)
[2021-05-09] MEDS: CALCITRIOL 0.25 MCG CAP (S0169) PO SCH (09:00)
[2021-05-09] MEDS: ASPIRIN 81MG ENTERIC TABLET PO SCH (09:00)
[2021-05-09] MEDS: atenoloL 25 MG TAB PO SCH (09:00)
[2021-05-09] MEDS: CYANOCOBALAMIN 500 MCG TAB PO SCH (09:00)
[2021-05-09] MEDS: FUROSEMIDE 20 MG TAB PO SCH (09:00)
[2021-05-09] MEDS: ASCORBIC ACID 500 MG TAB PO SCH (09:00)
--- OUTSIDE RECORDS SUMMARY | 2021-05-09 10:11 | CCD | Continuity of Care Document ---
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 Onset: 2010 Synovial cyst of popliteal space Thea Haywood D.O. Onset: 05/26/2011 Essential hypertension Thea Haywood D.O. Onset: 07/2010 Pure hypercholesterolemia Thea Haywood D.O. Onset: 05/26/2011 Spinal stenosis of lumbar region Onset: 05/26/2011 Social History Type Date Description Comments Sex Unknown ETOH Use Denies alcohol use Tobacco Use Start: Unknown End: Unknown Patient is a former smoker SMOKED FOR 30 YRS 1 PACK A DAY Allergies and adverse reactions Active Allergies Criticality Reaction | Severity Comments Date No Known Drug Allergy Unable to assess criticality 02/12/2011 Medications Active Medications SIG Qnty Indications Ordering Provide r Date Furosemide 20mg Tablets take 1 tab every morning 30tabs Reg Reyes DO 04/21/20 21 Tylenol Extra Strength 500mg Table ts 1-2 pills a day as needed Reg Reyes DO Vitamin C 500mg Chewtabs 1 by mouth every day 30units Reg Reyes DO 03/25/20 21 Multivitamin Men 50+ Men 50+ Table ts 1 qd po Paulette Cisneros DO 12/06/2020 Hydralazine HCL 25mg Tablets take 1 tablet by mouth twice a day 180tabs Paulette Cisneros DO 12/02/2020 Atorvastatin Calcium 40mg Tablets 1 by mouth every day 90tabs Paulette Cisneros,DO 11/04/2020 Vitamin B-12 1000mcg Tablets 1 by mouth every day 30tabs Paulette Cisneros,DO 05/16/2019 Atenolol 25mg Tablets Take 1 Tablet By Mouth Every Day 90tabs Paulette Cisneros,DO 10/11/2012 Neurontin 800mg Tablets take one tablet by mouth twice a day 180tabs Paulette Cisneros,DO 08/06/2004 Calcitriol 0.25mcg Capsules 1 by mouth Wednesday thru Wednesday Unknown Probiotic Capsules 1 by mouth every day Unknown Aspirin 81mg Tablets DR on hold by mouth every day Unknown History Medications Losartan Potassium 25mg Tablets 1 by mouth every day 30tabs Reg Reyes, DO 04/21/20 - 04/21/2021 Hydrochlorothiazide 12.5mg Tablets 1 by mouth every day 30tabs Reg Reyes, DO 04/21/20 - 04/21/2021 Iron OTC 1 qd po Paulette Cisneros,DO 12/06/2020 - 03/25/2021 Hydralazine HCL 10mg Tablets Take 1 Tablet By Mouth Three A Day Paulette Cisneros,DO 11/05/2020 - 11/05/2020 Amlodipine Besylate 5mg Tablets take 1 tablet by mouth once a day 30tabs Paulette CisnerosDO 11/05 - 11/05/2020 Hydralazine HCL 25mg Tablets Take 1 Tablet By Mouth Three A Day 90tabs Paulette CisnerosDO 11/05/2020 - 12/01/2020 Amlodipine Besylate 10mg Tablets take 1 tablet by mouth once a day Paulette CisnerosDO 11/04 - 11/05/2020 Furosemide 40mg Tablets 1 by mouth every day Paulette CisnerosDO 11/04/2020 - Medications Administered in Office Medication SIG Qnty Indications Ordering Provider Date Covid-19 vaccine, Unspecified Inj ection Unknown 08/10/2020 Administration Of Flu Vaccine Inj ection Thea Haywood D.O. 04/26 Immunizations CPT Code Status Date Vaccine Lot # U-Flu Given 05/17/2020 Influenza,Unspecified U-Flu Given 04/30/2019 Influenza,Unspecified U-Flu Given 05/24/2018 Influenza,Unspecified [id number] Given 08/18/2013 Pneumovax 23 [id number] Given 04/26/2008 Influenza Virus Vaccine [id number] Refused 05/25/2017 Influenza Vaccin e Quadrivalent Preser/Antibiotic Free Im Use Vital Signs Date Vital Result Comment 04/21/2021 1:34pm BP Systolic 150 mmHg BP Diastolic 72 mmHg Heart Rate 70 /min Height 64 inches 5'4" Weight 141.00 lb O2 % BldC Oximetry 94 % BMI (Body Mass Index) 24.2 kg/m2 03/25/2021 1:47pm BP Systolic 126 mmHg BP Diastolic 74 mmHg Heart Rate 65 /min Height 64 inches 5'4" Weight 137.00 lb O2 % BldC Oximetry 95 % BMI (Body Mass Index) 23.5 kg/m2 Results Test Acquired Date Facility Test Result H/L Range Note Basic Metabolic Panel 04/28/2021 [facility] Atomic Physics Professor: Dr Bruce Reyes [place], [place] [id number] [phone] Glucose 100 mg/dL High 74 - 99 1 BUN 36 mg/dL High 7 - 18 Creatinine 2.1 mg/dL High 0.6 - 1.3 Sodium 140 mEq/L 136 - 145 Potassium 4.4 mEq/L 3.5 - 5.1 Chloride 104 mEq/L 98 - 107 Carbon Dioxide 28 mEq/L 21 - 32 Calcium 9.6 mg/dL 8.5 - 10.1 GFR 31 mL/min Low >60 GFR 38 mL/min Low >60 2 Complete Blood Count 04/21/2021 [facility] Atomic Physics Professor: Dr Bruce [place] [address] [phone] WBC 9.3 x10*3/UL 4.1 - 10.9 RBC 3.20 x10*6/UL Low 4.20 - 6.30 Hemoglobin 10.3 g/dL Low 12.0 - 18.0 3 Hematocrit 29.9 % Low 37.0 - 51.0 MCV 93.6 fL 80.0 - 97.0 MCH 32.2 pg High 26.0 - 32.0 MCHC 34.4 g/dL 31.0 - 38.0 RDW 13.0 % 11.6 - 13.7 PLT 302 x10*3/UL 140 - 440 MPV 8.0 FL 7.8 - 11.0 Lymph % 15.8 % 10.0 - 58.5 Mid % 4.8 % 1.7 - 9.3 Neut % 79.4 % 37.0 - 92.0 Lymph # 1.4 x10*3/UL 0.6 - 4.1 Mid # 0.5 x10*3/UL 0.1 - 0.6 Neut # 7.4 x10*3/UL 2.0 - 7.8 Laboratory test finding 04/21/2021 [facility] Atomic Physics Professor: [place] [address] [phone] Sed Rate 57 mm/hr High 0 - 15 Basic Metabolic Panel 04/21/2021 [facility] Atomic Physics Professor: [place] [address] [phone] Glucose 81 mg/dL 74 - 99 4 BUN 34 mg/dL High 7 - 18 Creatinine 2.6 mg/dL High 0.6 - 1.3 Sodium 138 mEq/L 136 - 145 Potassium 5.3 mEq/L High 3.5 - 5.1 5 Chloride 103 mEq/L 98 - 107 Carbon Dioxide 27 mEq/L 21 - 32 Calcium 9.7 mg/dL 8.5 - 10.1 GFR 24 mL/min Low >60 GFR 29 mL/min Low >60 6 Laboratory test finding 04/21/[address] [address] [phone] C Reactive Protein Quantitativ 2.11 mg/dL High 0 .00-0.30 Total Iron Binding Capacit 04/21/2021 [facility] [address] [place] [id number] [phone] Iron (Fe) 53 g/dL Low 65-175 Total Iron Binding Capacity 220 g/dL Low 250-450 Percent Saturation 24.1 % Normal 19.7-50.0 Laboratory test finding 04/21/2021 [facility] [address] [place] [address] [phone] Ferritin 188 NG/ML Normal 26-388 Complete Blood Count 03/25/2021 [facility]hn Atomic Physics Professor: [place] [address] [phone] WBC 5.0 x10*3/UL 4.1 - 10.9 RBC 3.20 x10*6/UL Low 4.20 - 6.30 Hemoglobin 10.2 g/dL Low 12.0 - 18.0 7 Hematocrit 29.5 % Low 37.0 - 51.0 MCV 92.0 fL 80.0 - 97.0 MCH 31.7 pg 26.0 - 32.0 MCHC 34.5 g/dL 31.0 - 38.0 RDW 12.0 % 11.6 - 13.7 PLT 194 x10*3/UL 140 - 440 MPV 8.5 FL 7.8 - 11.0 Lymph % 23.9 % 10.0 - 58.5 Mid % 8.1 % 1.7 - 9.3 Neut % 68.0 % 37.0 - 92.0 Lymph # 1.2 x10*3/UL 0.6 - 4.1 Mid # 0.4 x10*3/UL 0.1 - 0.6 Neut # 3.4 x10*3/UL 2.0 - 7.8 Comprehensive Chem Profile 03/25/2021 [facility] Atomic Physics Professor: [place] [address] [phone] Glucose 91 mg/dL 74 - 99 8 BUN 38 mg/dL High 7 - 18 Creatinine 2.6 mg/dL High 0.6 - 1.3 Sodium 139 mEq/L 136 - 145 Potassium 4.3 mEq/L 3.5 - 5.1 Chloride 104 mEq/L 98 - 107 Carbon Dioxide 25 mEq/L 21 - 32 Calcium 9.4 mg/dL 8.5 - 10.1 Alk. Phosphatase 104 mg/dL 46 - 116 Total Bilirubin 0.5 mg/dL 0.2 - 1.0 Ast (Sgot) 27 U/L 15 - 37 Alt (SGPT) 26 U/L 12 - 78 Albumin 3.4 g/dL 3.4 - 5.0 Total Protein 7.5 g/dL 6.4 - 8.2 A/G Ratio 0.83 CALC Low 1.00 - 1.90 GFR 24 mL/min Low >60 GFR 29 mL/min Low >60 9 Laboratory test finding 03/07/[address] [address] [phone] C Reactive Protein Quantitativ 2.78 mg/dL High 0 .00-0.30 CBC With Differential 03/07/[address] [address] [phone] White Blood Count 5.3 10 Normal 4.0-10.0 Red Blood Count 2.94 10 Low 4.30-6.10 Hemoglobin 9.7 g/dL Low 13.5-17.5 Hematocrit 29.9 % Low 42.0-52.0 Mean Corpuscular Volume 101.7 fl High 80.0-96.0 Mean Corpuscular Hemoglobin 33.0 pg Normal 27.0-33.0 Mean Corpuscular HGB Conc 32.4 g/dL Normal 32.0-36.5 Red Cell Distribution Width 11.6 % Normal 11.5-14.5 Platelet Count, Automated 252 10 Normal 150-450 Neutrophils % 52.9 % Normal 36.0-66.0 Lymph % 26.6 % Normal 24.0-44.0 Faulkner % 11.0 % High 2.0-8.0 Eos % 8.7 % High 0.0-3.0 Baso % 0.2 % Normal 0.0-1.0 Immature Granulocyte % 0.6 % Normal 0-3.0 Nucleated Red Blood Cell % 0.0 % Normal 0-0 Neutrophils # 2.8 10 Normal 1.5-8.5 Lymph # 1.4 10 Low 1.5-5.0 Faulkner # 0.6 10 Normal 0.0-0.8 Eos # 0.5 10 Normal 0.0-0.5 Baso # 0.0 10 Normal 0.0-0.2 Laboratory test finding 03/07/[address] [address] [phone] Erythrocyte Sedimentation Rate 106 mm/hr High 0 -20 Complete Blood Count 03/03/2021 [facility] Atomic Physics Professor: [place] [address] [phone] WBC 5.9 x10*3/UL 4.1 - 10.9 10 RBC 2.95 x10*6/UL Low 4.20 - 6.30 Hemoglobin 10.0 g/dL Low 12.0 - 18.0 Hematocrit 27.8 % Low 37.0 - 51.0 MCV 94.2 fL 80.0 - 97.0 MCH 33.8 pg High 26.0 - 32.0 MCHC 35.9 g/dL 31.0 - 38.0 RDW 12.1 % 11.6 - 13.7 PLT 188 x10*3/UL 140 - 440 MPV 8.2 FL 7.8 - 11.0 Lymph % 16.7 % 10.0 - 58.5 Mid % 4.8 % 1.7 - 9.3 Neut % 78.5 % 37.0 - 92.0 Lymph # 0.9 x10*3/UL 0.6 - 4.1 Mid # 0.4 x10*3/UL 0.1 - 0.6 Neut # 4.6 x10*3/UL 2.0 - 7.8 Comprehensive Chem Profile 03/03/2021 [facility] Atomic Physics Professor: [place] [address] [phone] Glucose 102 mg/dL High 74 - 99 11 BUN 40 mg/dL High 7 - 18 12 Creatinine 2.2 mg/dL High 0.6 - 1.3 13 Sodium 137 mEq/L 136 - 145 Potassium 4.3 mEq/L 3.5 - 5.1 Chloride 102 mEq/L 98 - 107 Carbon Dioxide 28 mEq/L 21 - 32 Calcium 9.5 mg/dL 8.5 - 10.1 Alk. Phosphatase 101 mg/dL 46 - 116 Total Bilirubin 0.5 mg/dL 0.2 - 1.0 Ast (Sgot) 31 U/L 15 - 37 Alt (SGPT) 28 U/L 12 - 78 Albumin 3.1 g/dL Low 3.4 - 5.0 Total Protein 8.0 g/dL 6.4 - 8.2 A/G Ratio 0.63 CALC Low 1.00 - 1.90 GFR 29 mL/min Low >60 GFR 36 mL/min Low >60 14 Basic Metabolic Panel 11/15/2020 [facility] Atomic Physics Professor: Dr Bruce [place] [address] [phone] Glucose 107 mg/dL High 74 - 99 15 BUN 29 mg/dL High 7 - 18 Creatinine 2.5 mg/dL High 0.6 - 1.3 16 Sodium 141 mEq/L 136 - 145 Potassium 4.0 mEq/L 3.5 - 5.1 Chloride 103 mEq/L 98 - 107 Carbon Dioxide 26 mEq/L 21 - 32 Calcium 9.3 mg/dL 8.5 - 10.1 GFR 25 mL/min Low >60 GFR 31 mL/min Low >60 17 Basic Metabolic Panel 11/11/2020 [facility] Atomic Physics Professor: [place] [address] [phone] Glucose 134 mg/dL High 74 - 99 18 BUN 24 mg/dL High 7 - 18 Creatinine 2.4 mg/dL High 0.6 - 1.3 Sodium 141 mEq/L 136 - 145 Potassium 3.9 mEq/L 3.5 - 5.1 Chloride 101 mEq/L 98 - 107 Carbon Dioxide 28 mEq/L 21 - 32 Calcium 9.4 mg/dL 8.5 - 10.1 GFR 27 mL/min Low >60 GFR 32 mL/min Low >60 19 Complete Blood Count [facility]05[facility] Physics Professor: [place] [address] [phone] WBC 5.3 x10*3/UL 4.1 - 10.9 RBC 3.51 x10*6/UL Low 4.20 - 6.30 Hemoglobin 11.2 g/dL Low 12.0 - 18.0 20 Hematocrit 32.6 % Low 37.0 - 51.0 MCV 92.7 fL 80.0 - 97.0 MCH 31.8 pg 26.0 - 32.0 MCHC 34.3 g/dL 31.0 - 38.0 RDW 13.8 % High 11.6 - 13.7 PLT 301 x10*3/UL 140 - 440 MPV 7.9 FL 7.8 - 11.0 Lymph % 16.1 % 10.0 - 58.5 Mid % 5.0 % 1.7 - 9.3 Neut % 78.9 % 37.0 - 92.0 Lymph # 0.8 x10*3/UL 0.6 - 4.1 Mid # 0.3 x10*3/UL 0.1 - 0.6 Neut # 4.2 x10*3/UL 2.0 - 7.8 Basic Metabolic Panel 11/05/2020 [facility] Atomic Physics Professor: Dr Bruce Reyes [place], [place] [id number] [phone] Glucose 121 mg/dL High 74 - 99 21 BUN 41 mg/dL High 7 - 18 Creatinine 3.1 mg/dL High 0.6 - 1.3 Sodium 139 mEq/L 136 - 145 Potassium 3.3 mEq/L Low 3.5 - 5.1 Chloride 98 mEq/L 98 - 107 Carbon Dioxide 30 mEq/L 21 - 32 Calcium 9.1 mg/dL 8.5 - 10.1 GFR 20 mL/min Low >60 GFR 24 mL/min Low >60 22 Influenza A/B RSV Covid Amp 10/28/2020 [facility] [address] [place] [address] [phone] Influenza A Amplification NEGATIVE Normal Negati ve 23 Influenza B Amplification NEGATIVE Normal Negative 24 RSV Amplification NEGATIVE Normal Negative 25 Sars Covid-19 Amplification NEGATIVE Normal Negative 26 CBC With Differential 10/28/2020 [facility] [address] [place] [address] [phone] White Blood Count 5.0 10 Normal 4.0-10.0 Red Blood Count 2.03 10 Low 4.30-6.10 Hemoglobin 6.5 g/dL Critical low 13.5-17.5 Hematocrit 20.9 % Low 42.0-52.0 Mean Corpuscular Volume 103.0 fl High 80.0-96.0 Mean Corpuscular Hemoglobin 32.0 pg Normal 27.0-33.0 Mean Corpuscular HGB Conc 31.1 g/dL Low 32.0-36.5 Red Cell Distribution Width 15.0 % High 11.5-14.5 Platelet Count, Automated 203 10 Normal 150-450 Neutrophils % 64.2 % Normal 36.0-66.0 Lymph % 16.4 % Low 24.0-44.0 Faulkner % 11.1 % High 2.0-8.0 Eos % 7.3 % High 0.0-3.0 Baso % 0.4 % Normal 0.0-1.0 Immature Granulocyte % 0.6 % Normal 0-3.0 Nucleated Red Blood Cell % 0.0 % Normal 0-0 Neutrophils # 3.2 10 Normal 1.5-8.5 Lymph # 0.8 10 Low 1.5-5.0 Faulkner # 0.6 10 Normal 0.0-0.8 Eos # 0.4 10 Normal 0.0-0.5 Baso # 0.0 10 Normal 0.0-0.2 Istat Chem8+ Panel 10/28/2020 [facility] [address] [place] [address] [phone] iSTAT HCT 24.0 % Low 38.0-51.0 iSTAT Glucose 123 mg/dL High 70-105 iSTAT Sodium 143 mEq/L Normal 136-145 iSTAT Potassium 3.4 mEq/L Low 3.5-5.1 iSTAT CA++ 4.8 mg/dL Normal 4.5-5.3 iSTAT Chloride 106 mEq/L Normal 98-109 iSTAT Co2 28.0 MM/L High 23.0-27.0 iSTAT BUN 25 mg/dL Normal 8-26 iSTAT Creatinine 2.5 mg/dL High 0.6-1.3 CBC With Differential 10/28/2020 [facility] [address] [place] [address] [phone] White Blood Count 5.9 10 Normal 4.0-10.0 Red Blood Count 2.42 10 Low 4.30-6.10 Hemoglobin 7.9 g/dL Low 13.5-17.5 Hematocrit 25.1 % Low 42.0-52.0 Mean Corpuscular Volume 103.7 fl High 80.0-96.0 Mean Corpuscular Hemoglobin 32.6 pg Normal 27.0-33.0 Mean Corpuscular HGB Conc 31.5 g/dL Low 32.0-36.5 Red Cell Distribution Width 14.9 % High 11.5-14.5 Platelet Count, Automated 231 10 Normal 150-450 Neutrophils % 65.7 % Normal 36.0-66.0 Lymph % 16.2 % Low 24.0-44.0 Faulkner % 10.1 % High 2.0-8.0 Eos % 7.2 % High 0.0-3.0 Baso % 0.5 % Normal 0.0-1.0 Immature Granulocyte % 0.3 % Normal 0-3.0 Nucleated Red Blood Cell % 0.0 % Normal 0-0 Neutrophils # 3.9 10 Normal 1.5-8.5 Lymph # 1.0 10 Low 1.5-5.0 Faulkner # 0.6 10 Normal 0.0-0.8 Eos # 0.4 10 Normal 0.0-0.5 Baso # 0.0 10 Normal 0.0-0.2 Prothrombin Time/Inr 10/28/2020 [facility] [address] [place] [address] [phone] Prothrombin Time 14.8 seconds High 12.5-14.3 Inr 1.13 Normal 27 Laboratory test finding 10/28/2020 [facility] [address] [place] [address] [phone] Partial Thromboplastin Time 43.9 seconds High 24 .2-38.5 Cardiac Marker Panel 10/28/2020 [facility] [address] [place] [address] [phone] CPK Creatine Phosphokinase 136 U/L Normal 39-30 8 CK-MB Value Mass 3.2 NG/ML Normal <3.6 MB/CK Relative Index 2.35 Normal < Or =4 28 Troponin I < 0.02 NG/ML Normal < 0.10 29 Liver Profile 10/28/2020 [facility] [address] [place] [address] [phone] Ast/Sgot 20 U/L Normal 7-37 Alt/SGPT 14 U/L Normal 12-78 Alkaline Phosphatase 99 U/L Normal 45-117 Bilirubin,Total 1.2 mg/dL High 0.2-1.0 Bilirubin,Direct 0.1 mg/dL Normal 0.0-0.2 Total Protein 7.3 GM/DL Normal 6.4-8.2 Albumin 2.1 GM/DL Low 3.2-5.2 Albumin/Globulin Ratio 0.4 Normal Basic Metabolic Profile 10/28/[address] [id number] [phone] Glucose, Fasting 133 mg/dL High 70-100 Blood Urea Nitrogen 27 mg/dL High 7-18 Creatinine For GFR 2.18 mg/dL High 0.70-1.30 Glomerular Filtration Rate 31.7 Low >42 3 0 Sodium Level 145 mEq/L Normal 136-145 Potassium Serum 3.5 mEq/L Normal 3.5-5.1 Chloride Level 108 mEq/L High 98-107 Carbon Dioxide Level 29 mEq/L Normal 21-32 Anion Gap 8 mEq/L Normal 8-16 Calcium Level 9.0 mg/dL Normal 8.8-10.2 Laboratory test finding 10/28/[address] [address] [phone] Lipase 315 U/L Normal 73-393 Thyroid Stimulating Hormone 1.750 uIU/ML Normal 0.358-3.740 Free T4 0.71 ng/dL Low 0.76-1.46 Type & Screen -Incl Blood Type,Yung,AB SC 10/28/[address] [address] [phone] Blood Type O POSITIVE Normal AB Screen (Indirect Sloan)Vis NEGATIVE Normal Laboratory test finding 10/28/[address] [address] [phone] Packed Cells TRANSFUSED PRODU <SEE NOTE> 31 1 100-125 mg/dL PRE-DIABET ES/FASTING >126 mg/dL DIABETES/FASTING 2 CHRONIC KIDNEY DISEASE STAGI NG PER NKF STAGE I & II GFR >= 60 NORMAL TO MILDLY DECREASED STAGE III GFR 30-59 MODERATELY DECREASED STAGE IV GFR 15-29 SEVERELY DECREASED STAGE V GFR <15 VERY LITTLE GFR LEFT ESRD GFR <15 ON PRORATE CLERK 3 NOTE: RESULT VERIFIED. 4 100-125 mg/dL PRE-DIABET ES/FASTING >126 mg/dL DIABETES/FASTING 5 NOTE: RESULT VERIFIED. NO VISIBLE HEMOLYSIS. 6 CHRONIC KIDNEY DISEASE STAGI NG PER NKF STAGE I & II GFR >= 60 NORMAL TO MILDLY DECREASED STAGE III GFR 30-59 MODERATELY DECREASED STAGE IV GFR 15-29 SEVERELY DECREASED STAGE V GFR <15 VERY LITTLE GFR LEFT ESRD GFR <15 ON PRORATE CLERK 7 NOTE: RESULT VERIFIED. 8 100-125 mg/dL PRE-DIABET ES/FASTING >126 mg/dL DIABETES/FASTING 9 CHRONIC KIDNEY DISEASE STAGI NG PER NKF STAGE I & II GFR >= 60 NORMAL TO MILDLY DECREASED STAGE III GFR 30-59 MODERATELY DECREASED STAGE IV GFR 15-29 SEVERELY DECREASED STAGE V GFR <15 VERY LITTLE GFR LEFT ESRD GFR <15 ON PRORATE CLERK 10 NOTE: CBC VERIFIED 11 100-125 mg/dL PRE-DIABET ES/FASTING >126 mg/dL DIABETES/FASTING 12 NOTE: RESULT VERIFIED. 13 NOTE: RESULT VERIFIED. 14 CHRONIC KIDNEY DISEASE STAGI NG PER NKF STAGE I & II GFR >= 60 NORMAL TO MILDLY DECREASED STAGE III GFR 30-59 MODERATELY DECREASED STAGE IV GFR 15-29 SEVERELY DECREASED STAGE V GFR <15 VERY LITTLE GFR LEFT ESRD GFR <15 ON PRORATE CLERK 15 100-125 mg/dL PRE-DIABET ES/FASTING >126 mg/dL DIABETES/FASTING 16 NOTE: RESULT VERIFIED. 17 CHRONIC KIDNEY DISEASE STAGI NG PER NKF STAGE I & II GFR >= 60 NORMAL TO MILDLY DECREASED STAGE III GFR 30-59 MODERATELY DECREASED STAGE IV GFR 15-29 SEVERELY DECREASED STAGE V GFR <15 VERY LITTLE GFR LEFT ESRD GFR <15 ON PRORATE CLERK 18 100-125 mg/dL PRE-DIABET ES/FASTING >126 mg/dL DIABETES/FASTING 19 CHRONIC KIDNEY DISEASE STAGI NG PER NKF STAGE I & II GFR >= 60 NORMAL TO MILDLY DECREASED STAGE III GFR 30-59 MODERATELY DECREASED STAGE IV GFR 15-29 SEVERELY DECREASED STAGE V GFR <15 VERY LITTLE GFR LEFT ESRD GFR <15 ON PRORATE CLERK 20 NOTE: RESULT VERIFIED. 21 100-125 mg/dL PRE-DIABET ES/FASTING >126 mg/dL DIABETES/FASTING 22 CHRONIC KIDNEY DISEASE STAGI NG PER NKF STAGE I & II GFR >= 60 NORMAL TO MILDLY DECREASED STAGE III GFR 30-59 MODERATELY DECREASED STAGE IV GFR 15-29 SEVERELY DECREASED STAGE V GFR <15 VERY LITTLE GFR LEFT ESRD GFR <15 ON PRORATE CLERK 23 Negative results do not prec lude influenza or RSV virus infection and should not be used as the sole basis for treatment or other patient management decisions. 24 Negative results do not prec lude influenza or RSV virus infection and should not be used as the sole basis for treatment or other patient management decisions. 25 Negative results do not prec lude influenza or RSV virus infection and should not be used as the sole basis for treatment or other patient management decisions. 26 A false negative result may occur if a specimen is improperly collected, transported or handled. False negative results may also occur if inadequate numbers of organisms are present in the specimen. As with any molecular test, mutations within the target regions of Xpert Xpress SARS-CoV-2 could affect primer and/or probe binding resulting in failure to detect the presence of virus. This test cannot rule out diseases caused by other bacterial or viral pathogens. DISCLAIMER: Testing was performed using the [employer] SARS-CoV-2 test. This test was developed and its performance characteristics determined by [employer]. This test has not been FDA cleared or approved. This test has been authorized by FDA under an Emergency Use Authorization (EUA). This test is only authorized for the duration of time the declaration that circumstances exist justifying the authorization of the emergency use of in vitro diagnostic tests for detection of SARS-CoV-2 virus and/or diagnosis of COVID-19 infection under section 564(b)(1) of the Act, 21 U.S.C. 360bbb-3(b)(1), unless the authorization is terminated or revoked sooner. 27 THERAPUTIC HUMAN INR VALUES INDICATIONS NORMAL RANGES PROPHYLAXIS/TREATMENT OF: VENOUS THROMBOSIS 2.0-3.0 PULMONARY EMBOLISM 2.0-3.0 PREVENTION OF SYSTEMIC EMBOLISM FROM: TISSUE HEART VALVES 2.0-3.0 ACUTE MYOCARDIAL INFARCTION 2.0-3.0 VALVULAR HEART DISEASE 2.0-3.0 ATRIAL FIBRILLATION 2.0-3.0 MECHANICAL VALVES(HIGH RISK) 2.5-3.5 RECURRENT MYOCARDIAL INFARCTION 2.5-3.5 28 DIAGNOSIS CRITERIA MMB ng/ml Relative Index (RI) NON-AMI < or = 5 N/A PHELPS ZONE > 5 < or = 4 AMI > 5 > 4 29 Troponin I Reference Interva l for [employer] LOCI: 99th Percentile= 0.00-0.045 ng/ml Risk Stratification: <= 0.10 ng/ml Decreased Risk for Adverse Clinical Events. 0.10-1.50 ng/ml Increased Risk for Adv erse Clinical Events. Evaluation of additional criterion and/or repeat testing in 2-6 hours is suggested to rule out myocardial damage. >= 1.50 ng/ml Indicative of Myocardial Injury. 30 Units are mL/min/1.73 m2 Chronic Kidney Disease Staging per NKF: Stage I & II GFR >=60 Normal to Mildly Decreased Stage III GFR 30-59 Moderately Decreased Stage IV GFR 15-29 Severely Decreased Stage V GFR <15 Very Little GFR Left ESRD GFR <15 on PRORATE CLERK 31 TRANSFUSED PRODUCT: PACKED C ELLS COUNT: 1 Procedures Date Code Description Status 03/03/2021 57416 Office/Outpatient Established Mo d MDM 30-39 Min Completed 12/06/2020 63701 Office/Outpatient Established Mo d MDM 30-39 Min Completed 11/05/2020 64466 Office/Outpatient Established Mo d MDM 30-39 Min Completed 08/16/2019 [id number] Colonoscopy Completed 08/01/2008 [id number] Colonoscopy Completed 03/06/2003 [id number] Bone Mineral Density Test Comple [facility] Description No Information Available Encounters Type Date Location Provider Dx Diagnosis Office Visit 03/03/2021 2:30p [facility] , R19.7 Diarrhea, unspecified I12.9 Hypertensive chronic kidney disease w 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/unsp chr kdny N18.32 Chronic kidney disease, stag e 3b T84.53xD 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, subs B95.[address] inf ct causing dis classd elswhr I33.0 Acute and subacute infective endocarditis Office Visit 12/06/2020 10:20a [facility] Z01.818 Encounter for other preprocedural examin ation Z96.651 Presence of right artificial knee joint T84.53xD 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, subs A49.01 Methicillin suscep staph inf ection, unsp site I33.0 Acute and subacute infective endocarditis I12.9 Hypertensive chronic kidney disease w stg 1-4/unsp chr kdny N18.32 Chronic kidney disease, stag e 3b E78.5 Hyperlipidemia, unspecified Z79.82 correction (current) use of a spirin Office Visit 11/05/2020 9:00a [facility] Paulette rosales,DO T84.53xA 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, init Z96.651 Presence of right artificial knee joint L03.115 Cellulitis of right lower li mb I33.0 Acute and subacute infective endocarditis A49.01 Methicillin suscep staph inf ection, unsp site I12.9 Hypertensive chronic kidney disease w stg 1-4/unsp chr kdny N18.32 Chronic kidney disease, stag e 3b D64.9 Anemia, unspecified Assessments Date Code Description Provider 04/21/2021 T84.53xD Infection and inflam matory reaction due to internal right knee prosthesis, subsequent encounter Reg Reyes, DO 04/21/2021 Z96.651 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 Reg Reyes, DO 04/21/2021 I12.9 Hypertensive chronic kidney disease with stage 1 through stage 4 chronic kidney disease, or unspecified chronic kidney disease Reg Reyes, DO 04/21/2021 N18.4 Chronic kidney disease stage 4 C hrapril Reyes, DO 04/21/2021 D64.9 Anemia, unspecified Reg Reyes, DO 03/25/2021 Z01.810 Encounter for preprocedural card iovascular examination Reg Reyes, DO 03/25/2021 T84.53xD Infection and inflam matory reaction due to internal right knee prosthesis, subsequent encounter Reg Reyes, DO 03/25/2021 A49.01 Methicillin suscepti ble Staphylococcus aureus infection, unspecified site Reg Reyes, DO 03/25/2021 I12.9 Hypertensive chronic kidney disease with stage 1 through stage 4 chronic kidney disease, or unspecified chronic kidney disease Reg Reyes, DO 03/03/2021 R19.7 Diarrhea Paulette Cisneros,DO 03/03/2021 I12.9 Hypertensive chronic kidney disease with stage 1 through stage 4 chronic kidney disease, or unspecified chronic kidney disease Paulette Cisneros,DO 03/03/2021 N18.32 Chronic kidney disease, stage 3b Paulette Cisneros,DO 03/03/2021 T84.53xD Infection and inflam matory reaction due to internal right knee prosthesis, subsequent encounter Paulette Cisneros,DO 03/03/2021 B95.61 Methicillin suscepti ble Staphylococcus aureus infection as the cause of diseases classified elsewhere Paulette Cisneros,DO 03/03/2021 I33.0 Acute and subacute infective end ocarditis Paulette Cisneros,DO 12/06/2020 Z01.818 Encounter for other preprocedura l examination Paulette Cisneros,DO 12/06/2020 Z96.651 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 Paulette Cisneros,DO 12/06/2020 T84.53xD Infection and inflam matory reaction due to internal right knee prosthesis, subsequent encounter Paulette Cisneros,DO 12/06/2020 A49.01 Methicillin suscepti ble Staphylococcus aureus infection, unspecified site Paulette Cisneros,DO 12/06/2020 I33.0 Acute and subacute infective end ocarditis Paulette Cisneros,DO 12/06/2020 I12.9 Hypertensive chronic kidney disease with stage 1 through stage 4 chronic kidney disease, or unspecified chronic kidney disease Paulette Cisneros,DO 12/06/2020 N18.32 Chronic kidney disease, stage 3b Paulette Cisneros,DO 12/06/2020 E78.5 Hyperlipidemia, unspecified Abhay Cisnerso,DO 12/06/2020 Z79.82 correction (current) use of aspir in Paulette Cisneros,DO 11/15/2020 I12.9 Hypertensive chronic kidney disease with stage 1 through stage 4 chronic kidney disease, or unspecified chronic kidney disease Paulette Cisneros,DO 11/15/2020 I12.9 Hypertensive chronic kidney disease with stage 1 through stage 4 chronic kidney disease, or unspecified chronic kidney disease Lab Schedule 11/15/2020 N18.32 Chronic kidney disease, stage 3b Paulette Amelia,DO 11/15/2020 N18.32 Chronic kidney disease, stage 3b Lab Schedule 11/11/2020 I12.9 Hypertensive chronic kidney disease with stage 1 through stage 4 chronic kidney disease, or unspecified chronic kidney disease Paulette Cisneros,DO 11/11/2020 I12.9 Hypertensive chronic kidney dise ase with stage 1 through sta Lab Schedule 11/11/2020 N18.32 Chronic kidney disease, stage 3b Paulette Amelia,DO 11/11/2020 N18.32 Chronic kidney disease, stage 3b Lab Schedule 11/05/2020 T84.53xA Infection and inflam matory reaction due to internal right knee prosthesis, initial encounter Pauletteadrian Cisneros,DO 11/05/2020 Z96.651 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 Paulette Cisneros,DO 11/05/2020 L03.115 Cellulitis of right lower limb L marisol Amelia,DO 11/05/2020 I33.0 Acute and subacute infective end ocarditis Paueltte Cisneros,DO 11/05/2020 A49.01 Methicillin suscepti ble Staphylococcus aureus infection, unspecified site Paulette Cisneros,DO 11/05/2020 I12.9 Hypertensive chronic kidney dise ase with stage 1 through sta Paulette Cisneros,DO 11/05/2020 N18.32 Chronic kidney disease, stage 3b Paulette Cisneros,DO 11/05/2020 D64.9 Anemia, unspecified Paulette Cisneros DO Plan of Treatment Future Appointment(s):* 05/16/2021 3:00 pm - Reg Reyes DO at [facility] 04/21/2021 - Reg Reyes DO* T84.53xD Infection and inflammatory reaction due to internal right knee prosthesis, subsequent encounter* Comments:* Doing well s/p revision. He does have some mild erythema, but it seems to be more related to edema then infection. Will check cbc and inflammatory markers today. * Z96.651 Presence of right artificial knee joint * I12.9 Hypertensive chronic kidney disease with stage 1 through stage 4 chronic kidney disease, or unspecified chronic kidney disease* Comments:* He does have CKD4 and evidence of hypervolemia with weight gain, crackles and b/l NOEMÍ as well as HTN that is not at goal today. Will start patient on lasix, check bmp in 1 week. Consider titrating off of hydralazine pending response to lasix. * N18.4 Chronic kidney disease stage 4 * D64.9 Anemia, unspecified* Comments:* Reassess with CBC today, likely multifactorial including acute blood loss from surgery, anemia of CKD. Will need to assess iron stores as well. * All * New Medication:* Furosemide 20 mg - take 1 tab every morning * Losartan Potassium 25 mg - 1 by mouth every day * Hydrochlorothiazide 12.5 mg - 1 by mouth every day Functional Status Description No Information Available Mental Status Description No Information Available Referrals Description No Information Available
--- OUTSIDE RECORDS SUMMARY | 2021-05-09 10:11 | CCD | Continuity of Care Document ---
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 AUTM [phone] Problems Active Problems Provider Date Essential hypertension David Tillman MD Onset: 11/29/2020 Social History Type Date Description Comments Sex Unknown ETOH Use Denies alcohol use Tobacco Use Start: Unknown Denies Smoking Recreational Drug Use Denies Drug Use Smoking Status Reviewed: 04/30/21 Denies Smoking Allergies and adverse reactions Description No Known Drug Allergies Medications Active Medications SIG Qnty Indications Ordering Provide r Date Sulfamethoxazole/Trimethoprim DS 800-160mg Tablets one tab by mouth twice daily 20tabs David Tillman MD 04/11/2021 Atorvastatin Calcium 40mg Tablets Take 1 Tablet By Mouth AT Bedtime Unknown Hydralazine HCL 25mg Tablets Take 1 Tablet By Mouth 3 Times A Day Unknown 0 Calcitriol 0.25mcg Capsules Take 1 Capsule By Mouth Once A Day Wednesday Unknown Aspirin [address] 1 by mouth every day Unknown Vitamin B 12 500mcg Tablets one tablet by mouth daily. Unknown Vitamin C 500mg Capsules 1 tab by mouth twice a day Unknown Atenolol 25mg Tablets 1 tab by mouth daily Unknown Multivitamin Adults 50+ Adt 50+ Ta blets 1 tab by mouth every day after meals Unknown Iron 325(65Fe) mg Tablets 1 tab by mouth every day with dinner Unknown Tramadol HCL 50mg Tablets 1-2 every 6 hours as needed for pain after surgery Unknown Furosemide 20mg Tablets Take 1 Tablet By Mouth Every Morning Reg Reyes D.ONilson 0 History Medications Hibiclens 4% Liquid 5 days price pply 473ml David Tillman MD 11/30/2020 - 12/12/2020 Immunizations Description No Information Available Vital Signs Date Vital Result Comment 04/30/2021 9:16am Body Temperature 97.2 F 04/25/2021 9:16am Body Temperature 97.5 F Results Description No Information Available Procedures Date Code Description Status 04/30/2021 57361 Office/Outpatient Established Mo d MDM 30-39 Min Completed 04/09/2021 66763 Revise Total Knee Ar throplasty Femoral & Entire Tibial Component Completed 04/08/2021 58196 Office/Outpatient Established Lo w MDM 20-29 Min Completed 03/06/2021 08922 Office/Outpatient Established Mo d MDM 30-39 Min Completed 12/10/2020 96571 Remove Total Knee Prosthesis Com pleted 12/10/2020 91728 Insertion, Non-Biodegradable Nickolas g Delivery Implant Completed 11/29/2020 01123 Office/Outpatient Established Mo d MDM 30-39 Min Completed Medical Devices Description No Information Available Encounters Type Date Location Provider Dx Diagnosis Office Visit 04/30/2021 1:00p [facility] David Tillman MD Z96.651 Presence of right artificial knee joint T14.90xA Injury, unspecified, initial encounter Z47.89 Encounter for other orthoped ic aftercare Office Visit 04/25/2021 9:30a Henry Tillman MD Z96.651 Presence of right artificial knee joint T14.90xA Injury, unspecified, initial encounter Z47.89 Encounter for other orthoped ic aftercare Office Visit 04/14/2021 2:30p Henry Tillman MD Z96.651 Presence of right artificial knee joint T14.90xA Injury, unspecified, initial encounter Z47.89 Encounter for other orthoped ic aftercare Office Visit 04/08/2021 1:00p Henry Tillman MD T84.53xD 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, subs Office Visit 03/06/2021 10:00a Henry Tillman MD T84.53xA 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, init Office Visit 02/24/2021 10:30a Henry Tillman MD T84.53xD 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, subs Z47.89 Encounter for other orthoped ic aftercare Office Visit 01/24/2021 11:00a Henry Tillman MD Z47.89 Encounter for other orthopedic aftercare T84.53xD 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, subs Office Visit 01/20/2021 1:00p Henry Tillman MD Z48.02 Encounter for removal of sutures T84.53xD 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, subs Z47.89 Encounter for other orthoped ic aftercare Office Visit 01/01/2021 11:00a Henry Tillman MD T84.53xD 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, subs Office Visit 12/24/2020 9:30a Henry Tillman MD T84.53xD 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, subs Z48.02 Encounter for removal of sut ures Office Visit 11/29/2020 10:30a Henry Tillman MD T84.59xA Infect/inflm reaction due to oth internal joint prosth, init Assessments Date Code Description Provider 04/30/2021 Z96.651 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 David Tillman MD 04/30/2021 T14.90xA Wound David Tillman MD 04/30/2021 Z47.89 Encounter for other orthopedic a ftercare David Tillman MD 04/25/2021 Z96.651 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 David Tillman MD 04/25/2021 T14.90xA Wound David Tillman MD 04/25/2021 Z47.89 Encounter for other orthopedic a ftercare David Tillman MD 04/14/2021 Z96.651 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 David Tillman MD 04/14/2021 T14.90xA Wound David Tillman MD 04/14/2021 Z47.89 Encounter for other orthopedic a ftercare David Tillman MD 04/09/2021 T84.53xA Infection and inflam matory reaction due to internal right knee prosthesis, initial encounter David Tillman MD 04/08/2021 T84.53xD Infection and inflam matory reaction due to internal right knee prosthesis, subsequent encounter David Tillman MD 03/06/2021 T84.53xA Infection and inflam matory reaction due to internal right knee prosthesis, initial encounter David Tillman MD 02/24/2021 T84.53xD Infection and inflam matory reaction due to internal right knee prosthesis, subsequent encounter David Tillman MD 02/24/2021 Z47.89 Encounter for other orthopedic a ftercare David Tillman MD 01/24/2021 Z47.89 Encounter for other orthopedic a ftercare David Tillman MD 01/24/2021 T84.53xD Infection and inflam matory reaction due to internal right knee prosthesis, subsequent encounter David Tillman MD 01/20/2021 Z48.02 Encounter for removal of sutures David Tillman MD 01/20/2021 T84.53xD Infection and inflam matory reaction due to internal right knee prosthesis, subsequent encounter David Tillman MD 01/20/2021 Z47.89 Encounter for other orthopedic a ftercare David Tillman MD 01/01/2021 T84.53xD Infection and inflam matory reaction due to internal right knee prosthesis, subsequent encounter David Tillman MD 12/24/2020 T84.53xD Infection and inflam matory reaction due to internal right knee prosthesis, subsequent encounter David Tillman MD 12/24/2020 Z48.02 Encounter for removal of sutures David Tillman MD 12/10/2020 T84.59xA 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, initial encounter David Tillman MD 12/10/2020 B95.7 Other staphylococcus as the cause of diseases classified elsewhere David Tillman MD 11/29/2020 T84.59xA 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, initial encounter David Tillman MD Plan of Treatment Future Appointment(s):* 05/19/2021 11:30 am - David Tillman MD at [facility] 04/30/2021 - David Tillman MD* Z96.651 Presence of right artificial knee joint* Comments:* The patient is doing quite well with his right total knee arthroplasty. He is mobilizing with 2 crutches without any significant issues. He still has some difficulty associated with his right foot and ankle drop. He also has some limited active extension likely associated with the multiple surgeries that he has had. This is due to quads weakness. * T14.90xA Wound* Comments:* Sutures were removed today. No significant evidence of wound dehiscence. New dressing was applied. This will remain till next Wednesday. * Z47.89 Encounter for other orthopedic aftercare* Comments:* Removal of sutures as above with dressing * Follow up:* 3 weeks Functional Status Functional Condition Comment Date Status Rolling walker is used to ambulate Active Brace knee immobilizer right knee Act tristan Mental Status Description No Information Available Referrals Description No Information Available
--- OUTSIDE RECORDS SUMMARY | 2021-05-09 10:11 | CCD | Continuity of Care Document ---
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 AUTM [phone] Problems Active Problems Provider Date Essential hypertension [...] Available Procedures Date Code Description Status 04/30/2021 73603 Office/Outpatient Established Mo d MDM 30-39 Min Completed 04/09/2021 52823 Revise Total Knee Ar throplasty Femoral & Entire Tibial Component Completed 04/08/2021 63921 Office/Outpatient Established Lo w MDM 20-29 Min Completed 03/06/2021 12766 Office/Outpatient Established Mo d MDM 30-39 Min Completed 12/10/2020 14435 Remove Total Knee Prosthesis Com pleted 12/10/2020 61057 Insertion, Non-Biodegradable Nickolas g Delivery Implant Completed 11/29/2020 11389 Office/Outpatient Established Mo d MDM 30-39 Min [...] other orthopedic a ftercare David Tillman MD 04/08/2021 T84.53xD Infection and [...] Z47.89 Encounter for other orthopedic a ftercare Daivd Tillman MD 01/01/2021 T84.53xD Infection and inflam [...] 11:30 am - David Tillman MD at [facility] 04/30/2021 - David Tillman MD* Z96.651 Presence [...]
--- OUTSIDE RECORDS SUMMARY | 2021-05-09 10:11 | CCD ---
Author Author [facility] Organization [facility] Address Unknown Phone Unavailable Care Team Providers Care Investigation Clerk Name Role Phone Arley Umana Unavailable PROBLEMS Type Condition ICD9-CM Code [id number] Code Onset Dates Condition S tatus W/U Status Risk SNOMED Code Notes Problem DDD (degenerative disc disease), lumbar M51.36 Active confirmed 38267029 Problem Presence of unspecified artificial knee joint Z96. 659 Active confirmed 181759769331 Problem Infection and inflammatory r eaction due to other internal joint prosthesis, subsequent encounter T84.59XD Active confirmed 157935466 Problem Anemia in chronic illness D63.8 Active confirmed 477468440 Problem Hyperkalemia E87.5 Active confirmed 7832284 9 Problem Essential (primary) hypertension I10 Active conf irmed 43143810 Problem Aortic valve endocarditis I35.8 Active confirmed 04031127 Problem MSSA (methicillin susceptible Staphylococcus aureus) A49.01 Active confirmed 480995999 Problem Iron deficiency anemia due to chronic blood loss D 50.0 Active confirmed 712929668 ALLERGIES Allergen (clinical drug ingredient) Drug/Non Drug Allergy do cumented on EMR Reaction Allergy Type Onset Date Status Sulfasalazine Sulfa Antibiotics kidney issues Drug Allergy 04/29/2021 Active ENCOUNTERS from 1945 to 2021-05-05 Encounter Location Date Provider Diagnosis [address] [phone] [place] [address] Mar, Arley Umana Infection and inflammatory r eaction due to other internal joint prosthesis, subsequent encounter T84.59XD ; MSSA (methicillin susceptible Staphylococcus aureus) A49.01 ; Aortic valve endocarditis I35.8 ; Presence of unspecified artificial knee joint Z96.659 ; Hyperkalemia E87.5 and Adverse effect of sulfonamide antibiotic, subsequent encounter T37.0X5D IMMUNIZATIONS Vaccine Route Administration Date Status Influenza 18 yrs & older Flublok IM Intramuscular Apr 21, 2021 Administered SOCIAL HISTORY Tobacco Use: Social History Observation Description Date Details (start date - stop date) Never Smoker Sex Assigned At : Social History Observation Description Sex Assigned At Unknown Education: Question Answer Notes Level of Education: Finished College Language: Question Answer Notes Languages spoken: Togolese Buddhist: Question Answer Notes Buddhist 08 Christianity Sexual Hx: Question Answer Notes Had sex in the last 12 months (vaginal, oral, or anal)? Yes with Women only Alcohol Screening: Question Answer Notes Did you have a drink containing alcohol in the past year? No Points 0 Interpretation Negative Tobacco Use: Question Answer Notes Are you a: never smoker REASON FOR REFERRAL No Information VITAL SIGNS Weight 142 lbs Mar, Weight-kg 64.41 kg Mar, Height 63 in Mar, BMI 25.15 kg/m2 Mar, Heart Rate 64 /min Mar, Respiratory Rate 16 /min Mar, Temperature 98 degrees Fahrenheit Mar, Oximetry 98 Mar, MEDICATIONS Medication SIG (Take, Route, Frequency, Duration) Notes Start Da te End Date Status Vitamin B12 100 MCG as directed Orally Active Aspir-Low 81 MG 1 tablet Orally Once a day for 30 day(s) Active Atenolol 25 MG TAKE 1 TABLET BY MOUTH EVERY DAY Oral Active Atorvastatin Calcium 40 MG TAKE 1 TABLET BY MOUTH AT BEDTIME Oral for 30 Active hydrALAZINE HCl 10 MG TAKE 1 TABLET BY MOUTH TWICE A DAY Oral Active Gabapentin 800 MG TAKE 1 TABLET BY MOUTH TWICE A DAY Oral Active traMADol HCl 50 MG (Schedule IV Drug) TAKE 1 TA BLET BY MOUTH TWICE A DAY NEEDED, FOR PAIN Oral Active Multivitamin - 1 tablet Orally Once a day for 30 day(s) Active PROCEDURES from 1945 to 2021-05-05 Procedure Date Ordered Result Body Site Imm: Flublok Quadrivalent 18 years & older 0.5mL IM Influenza 20 15-04-27 N/A RESULTS No Results REASON FOR VISIT 1 week follow up per surgeon MEDICAL (GENERAL) HISTORY Type Description Date Medical History aortic valve endocarditis staph aureus Medical History coronary artery disease Medical History iron deficiency anemia Medical History prosthetic joint infection o f the right knee MSSA 09/2020 failed conservative treatment with debridement and synovectomy status post explantation on 12/10/2020 Medical History essential hypertension Medical History degenerative disc disease lumbar spine u ses a cane for balance Medical History osteoarthritis of knees stat us post prosthetic joint replacement Medical History hyperlipidemia Surgical History right knee replacement 02/2019 Surgical History left knee replacement 05/2018 Surgical History L1-5 back surgery 2019 Surgical History C1-5 cervical surgery 2012 Hospitalization History right knee infection / endocarditis 10/2020 Goals Section No Information Health Concerns No Information MEDICAL EQUIPMENT No Information MENTAL STATUS No Information FUNCTIONAL STATUS No Information ASSESSMENTS Encounter Date Diagnosis Assessment Notes Treatment Notes Treatm ent Clinical Notes Mar, Infection and inflammatory r eaction due to other internal joint prosthesis, subsequent encounter (ICD-10 - T84.59XD) Mar, MSSA (methicillin susceptibl e Staphylococcus aureus) (ICD-10 - A49.01) He discontinued IV antibiotics and po rifampin on 02/04 total of 8 weeks from explantation of prosthesis. Patient had reimplantation of his knee prosthesis on 04/[address] Hernández. He is doing well denies any pain fever chills night sweats. He has a Prevena wound VAC but there is no drainage for the past 5 days. There is some redness medially. Dressing was changed at the office Optifoam was placed. Patient was advised to elevate his leg. He is currently on Bactrim DS 1 tablet twice daily which he has been taking for the past 10 days ordered on discharge by orthopedic surgery. Intraoperatively no cultures were done but frozen sections had less than 5 white cells there was no evidence of infection. Mar, Aortic valve endocarditis (ICD-10 - I35.8) JOY done 10/06/20 small vegetation AV , Dr Somers follow up in 6 months Mar, Presence of unspecified artificial knee joint (I CD-10 - Z96.659) Mar, Hyperkalemia (ICD-10 - E87.5) Mar, Adverse effect of sulfonamid e antibiotic, subsequent encounter (ICD-10 - T37.0X5D) Mar, Other Cr 2.18 improve d, patient was given Bactrim on discharge by orthopedic surgery will monitor kidney function today patient was advised to have his blood work done at Dr. Stuart's office this afternoon PLAN OF TREATMENT Treatment Notes Assessment Notes Clinical Notes MSSA (methicillin susceptible Staphylococcus aureus) He discontinued IV antibiotics and po rifampin on 02/04 total of 8 weeks from explantation of prosthesis. Patient had reimplantation of his knee prosthesis on 04/[address] Hernández. He is doing well denies any pain fever chills night sweats. He has a Prevena wound VAC but there is no drainage for the past 5 days. There is some redness medially. Dressing was changed at the office Optifoam was placed. Patient was advised to elevate his leg. He is currently on Bactrim DS 1 tablet twice daily which he has been taking for the past 10 days ordered on discharge by orthopedic surgery.Intraoperatively no cultures were done but frozen sections had less than 5 white cells there was no evidence of infection. Aortic valve endocarditis JOY done small vegetation AV , Dr Somers follow up in 6 months Treatment Notes Test Name Order Date CBC with Differential 2021-04-21 C REACTIVE PROTEIN QUANTITATIV (At [facility]) 2021-04-21 Basic Metabolic Profile (BMP) 2021-04-21 Next Appt Details prn, he will call for redness pain fever Reason: Insurance Providers Payer Name Payer Address Payer Phone Insured Name Patient Relati onship to Insured Coverage Start Date Coverage End Date [facility] [facility] [address] [address] [facility] [id number] [phone] KATHI WATERS
--- OUTSIDE RECORDS SUMMARY | 2021-05-09 10:11 | CCD | Continuity of Care Document ---
Author Author Hossein TILLMAN MD Organization Unknown Address [id number] [place] [address] , [facility] [place] [place] [address] Phone [phone] Care Team Providers Care Net Technical Architect Name Role Phone AmeliaPaulette D.O. AUTM [phone] Problems Active Problems Provider Date Essential hypertension David Tillman MD Onset: 11/29/2020 Social History Type Date Description Comments Sex Unknown ETOH Use Denies alcohol use Tobacco Use Start: Unknown Denies Smoking Recreational Drug Use Denies Drug Use Smoking Status Reviewed: 04/14/21 Denies Smoking Allergies and adverse reactions Description [...] Tablet By Mouth Every Morning Reg Reyes D.O. 0 History Medications Hibiclens 4% Liquid 5 days price pply 473ml David Tillman MD 11/30/2020 - 12/12/2020 Immunizations Description No Information Available Vital Signs Date Vital Result Comment 04/25/2021 9:16am Body Temperature 97.5 F 04/14/2021 2:24pm Body Temperature 97.3 F Results Description No Information Available Procedures Date Code Description Status 04/09/2021 28509 Revise Total Knee Ar throplasty Femoral & Entire Tibial Component Completed 04/08/2021 65312 Office/Outpatient Established Lo w MDM 20-29 Min Completed 03/06/2021 72287 Office/Outpatient Established Mo d MDM 30-39 Min Completed 12/10/2020 19299 Remove Total Knee Prosthesis Com pleted 12/10/2020 60065 Insertion, Non-Biodegradable Nickolas g Delivery Implant Completed 11/29/2020 83639 Office/Outpatient Established Mo d MDM 30-39 Min Completed Medical Devices Description No Information Available Encounters Type Date Location Provider Dx Diagnosis Office Visit 04/25/2021 9:30a [facility] David Tillman MD Z96.651 Presence of right artificial knee joint T14.90xA Injury, unspecified, initial encounter Z47.89 Encounter for other orthoped ic aftercare Office Visit 04/14/2021 2:30p Henry Tillman MD Z96.651 Presence of right artificial knee joint T14.90xA Injury, unspecified, initial encounter Z47.89 Encounter for other orthoped ic aftercare Office Visit 04/08/2021 1:00p [facility] David Tillman MD T84.53xD 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, subs Office Visit 03/06/2021 10:00a [facility] David Tillman MD T84.53xA 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, init Office Visit 02/24/2021 10:30a Henry Tillman MD T84.53xD 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, subs Z47.89 Encounter for other orthoped ic aftercare Office Visit 01/24/2021 11:00a [facility] David Tillman MD Z47.89 Encounter for other orthopedic [...] prosth, init Assessments Date Code Description Provider 04/25/2021 Z96.651 Presence of right artificial kne [...] Tillman MD Plan of Treatment Future Appointment(s):* 04/30/2021 1:00 pm - David Tillman MD at [facility] 04/25/2021 - David Tillman MD* Z96.651 Presence of right artificial knee joint* Comments:* The patient is mobilizing weightbearing as tolerated with 2 crutches. He is denies any significant complaints or concerns. There was some serous fluid around the proximal portion of the incision in particular. At this point he did not want to take the sutures out. We will leave him in the Mepilex dressing and he will remain in a knee immobilizer over the weekend with decreased range of motion. We will contact him on Wednesday to see if there is any evidence of staining or drainage on the Mepilex dressing. If this is the case then we will likely put a wound VAC on again until the wounds have healed up. Possible consideration for removal of the sutures next Wednesday if there is no staining or otherwise. * Follow up:* Next Wednesday. We will contact the patient on Wednesday to see if he is having any persistent issues with drainage. * T14.90xA Wound * Z47.89 Encounter for other orthopedic aftercare Functional Status Functional Condition Comment Date Status Rolling walker is used to ambulate Active Brace knee immobilizer right knee Act tristan Mental Status Description No Information Available Referrals Description No Information Available
--- OUTSIDE RECORDS SUMMARY | 2021-05-09 10:11 | CCD | Continuity of Care Document ---
Author Author Hossein TILLMAN MD Organization Unknown Address [address] [place] [address] , [place] [place] [address] Phone [phone] Care Team Providers Care Activities Officer Name Role Phone AmeliaPaulette D.O. AUTM [phone] Problems Active Problems Provider Date Essential hypertension [...] Available Procedures Date Code Description Status 04/30/2021 25116 Office/Outpatient Established Mo d MDM 30-39 Min Completed 04/09/2021 05069 Revise Total Knee Ar throplasty Femoral & Entire Tibial Component Completed 04/08/2021 11156 Office/Outpatient Established Lo w MDM 20-29 Min Completed 03/06/2021 05253 Office/Outpatient Established Mo d MDM 30-39 Min Completed 12/10/2020 87276 Remove Total Knee Prosthesis Com pleted 12/10/2020 04496 Insertion, Non-Biodegradable Nickolas g Delivery Implant Completed 11/29/2020 46541 Office/Outpatient Established Mo d MDM 30-39 Min [...] 11:30 am - David Tillman MD at [facility] 04/30/2021 - David Tillman MD* Z96.651 Presence [...]
--- OUTSIDE RECORDS SUMMARY | 2021-05-09 10:11 | CCD | Continuity of Care Document ---
Author Author Hossein TILLMAN MD Organization Unknown Address [id number] [place] [address] , [facility] [place] [address] Phone [phone] Care Team Providers Care Drop Tester Name Role Phone Paulette Cisneros D.O. AUTM [phone] Problems Active Problems Provider Date Essential hypertension [...] Available Procedures Date Code Description Status 04/09/2021 25328 Revise Total Knee Ar throplasty Femoral & Entire Tibial Component Completed 04/08/2021 77384 Office/Outpatient Established Lo w MDM 20-29 Min Completed 03/06/2021 20571 Office/Outpatient Established Mo d MDM 30-39 Min Completed 12/10/2020 56907 Remove Total Knee Prosthesis Com pleted 12/10/2020 14406 Insertion, Non-Biodegradable Nickolas g Delivery Implant Completed 11/29/2020 04015 Office/Outpatient Established Mo d MDM 30-39 Min [...] 11:30 am - David Tillman MD at [facility] 04/30/2021 - David Tillman MD* Z96.651 [...]
--- OUTSIDE RECORDS SUMMARY | 2021-05-09 10:12 | CCD | Continuity of Care Document ---
Author Author Hossein TALBOT DO Organization Unknown Address [address] [facility] [address] [place] [address] Phone [phone] Care Team Providers Care Sign Painter Name Role Phone Confucianist [facility] AUTM [phone] Reg Talbot DO AUTM [phone] Problems Active Problems Provider Date Osteoarthritis Thea [...] FOR 30 YRS 1 PACK A DAY Allergies, Adverse Reactions, Alerts Active Allergies Criticality Reaction | Severity Comments Date No Known Drug Allergy Unable to assess criticality 02/12/2011 Medications Active Medications SIG Qnty Indications Ordering Provide r Date Furosemide 20mg Tablets take 1 tab every morning 30tabs Reg Talbot DO 04/21/20 21 Tylenol Extra Strength 500mg Table ts 1-2 pills a day as needed Reg Talbot, Vitamin C 500mg Chewtabs 1 by mouth every day 30units Reg Talbot DO 03/25/20 21 Multivitamin Men 50+ Men 50+ Table ts 1 qd po Paulette Cisneros, 12/06/2020 Hydralazine HCL 25mg Tablets take 1 tablet by mouth twice a day 180tabs Paulette Cisneros,DO 12/02/2020 Atorvastatin Calcium 40mg Tablets 1 by [...] 1 by mouth Wednesday thru Wednesday Unknown Sulfamethoxazole/Trimethoprim DS 800-160mg Tablets Take 1 Tablet By Mouth Twice A Day David Hernández M.D. Probiotic Capsules 1 by mouth every day Unknown Aspirin 81mg Tablets DR on hold by mouth every day Unknown History Medications Losartan Potassium 25mg Tablets 1 by mouth every day 30tabs Reg Talbot, DO 04/21/20 - 04/21/2021 Hydrochlorothiazide 12.5mg Tablets 1 by mouth every day 30tabs Reg Talbot, DO 04/21/20 - 04/21/2021 Iron OTC 1 qd po Paulette Cisneros,DO 12/06/2020 - 03/25/2021 Hydralazine HCL 10mg Tablets Take 1 Tablet By Mouth Three A Day Paulette Cisneros, 11/05/2020 - 11/05/2020 Amlodipine Besylate 5mg Tablets take 1 tablet by mouth once a day 30tabs Paulette Cisneros,DO 11/05 - 11/05/2020 Hydralazine HCL 25mg Tablets Take 1 Tablet By Mouth Three A Day 90tabs Paulette Cisneros,DO 11/05/2020 - 12/01/2020 Amlodipine Besylate 10mg Tablets take 1 tablet by mouth once a day Paulette CisnerosDO 11/04 - 11/05/2020 Furosemide 40mg Tablets 1 by mouth every day Paulette Cisneros,DO 11/04/2020 - Medications Administered in Office Medication SIG Qnty Indications Ordering Provider Date Covid-19 vaccine, Unspecified Inj ection Unknown 08/10/2020 Administration Of Flu Vaccine Inj ection Thea Haywood D.O. 04/26 Immunizations CPT Code Status Date Vaccine Lot # U-Flu Given 05/17/2020 Influenza,Unspecified U-Flu Given 04/30/2019 Influenza,Unspecified U-Flu Given 05/24/2018 Influenza,Unspecified [id number] Given 08/18/2013 Pneumovax 23 [id number] Given 04/26/2008 Influenza Virus Vaccine [id number] Refused 05/25/2017 Influenza Vaccin e Quadrivalent Preser/Antibiotic [...] Date Facility Test Result H/L Range Note Laboratory test finding 04/21/2021 [facility] Berman Manager New Product: Dr Bruce Talbot [place], [place] [id number] [phone] Sed Rate 57 mm/hr High 0 - 15 Basic Metabolic Panel 04/21/2021 [facility] just[facility] Gonzalez Manager New Product: Dr Bruce Talbot [place], [place] [id number] [phone] Glucose 81 mg/dL 74 - 99 1 BUN 34 mg/dL High 7 - 18 Creatinine 2.6 mg/dL High 0.6 - 1.3 Sodium 138 mEq/L 136 - 145 Potassium 5.3 mEq/L High 3.5 - 5.1 2 Chloride 103 mEq/L 98 - 107 Carbon Dioxide 27 mEq/L 21 - 32 Calcium 9.7 mg/dL 8.5 - 10.1 GFR 24 mL/min Low >60 GFR 29 mL/min Low >60 3 Laboratory test finding 04/21/2021 [facility] [address] [id number] [phone] C Reactive Protein Quantitativ 2.11 mg/dL High 0 .00-0.30 Total Iron Binding Capacit 04/21/[address] [address] [phone] Iron (Fe) 53 g/dL Low 65-175 Total Iron Binding Capacity 220 g/dL Low 250-450 Percent Saturation 24.1 % Normal 19.7-50.0 Laboratory test finding 04/21/[address] [address] [phone] Ferritin 188 NG/ML Normal 26-388 Complete Blood Count 04/21/2021 [facility] Manager New Product: [place] [address] [phone] WBC 9.3 x10*3/UL 4.1 - 10.9 RBC 3.20 x10*6/UL Low 4.20 - 6.30 Hemoglobin 10.3 g/dL Low 12.0 - 18.0 4 Hematocrit 29.9 % Low 37.0 - 51.0 [...] Neut # 7.4 x10*3/UL 2.0 - 7.8 Complete Blood Count 03/25/2021 [facility]ovani pc Manager New Product: [place] [address] [phone] WBC 5.0 x10*3/UL 4.1 - 10.9 RBC 3.20 x10*6/UL Low 4.20 - 6.30 Hemoglobin 10.2 g/dL Low 12.0 - 18.0 5 Hematocrit 29.5 % Low 37.0 - 51.0 [...] 2.0 - 7.8 Comprehensive Chem Profile 03/25/2021 [facility] Benitez Manager New Product: Dr Bruce Talbot [place], [place] [address] [phone] Glucose 91 mg/dL 74 - 99 6 BUN 38 mg/dL High 7 - 18 [...] Low >60 GFR 29 mL/min Low >60 7 Laboratory test finding 03/07/2021 [facility] [address] [place] [address] [phone] C Reactive Protein Quantitativ 2.78 mg/dL High 0 .00-0.30 CBC With Differential 03/07/2021 [address] [place] [address] [phone] White Blood Count 5.3 10 Normal 4.0-10.0 [...] 36.0-66.0 Lymph % 26.6 % Normal 24.0-44.0 [place] % 11.0 % High 2.0-8.0 Eos % 8.7 % High 0.0-3.0 Baso % 0.2 % Normal 0.0-1.0 Immature Granulocyte % 0.6 % Normal 0-3.0 Nucleated Red Blood Cell % 0.0 % Normal 0-0 Neutrophils # 2.8 10 Normal 1.5-8.5 Lymph # 1.4 10 Low 1.5-5.0 [place] # 0.6 10 Normal 0.0-0.8 Eos # 0.5 10 Normal 0.0-0.5 Baso # 0.0 10 Normal 0.0-0.2 Laboratory test finding 03/07/2021 [address] [place] [address] [phone] Erythrocyte Sedimentation Rate 106 mm/hr High 0 -20 Complete Blood Count 03/03/2021 [facility] pc Manager New Product: [place] [address] [phone] WBC 5.9 x10*3/UL 4.1 - 10.9 8 RBC 2.95 x10*6/UL Low 4.20 - 6.30 [...] 2.0 - 7.8 Comprehensive Chem Profile 03/03/2021 [facility] Benitez Manager New Product: [place] [address] [phone] Glucose 102 mg/dL High 74 - 99 9 BUN 40 mg/dL High 7 - 18 10 Creatinine 2.2 mg/dL High 0.6 - 1.3 11 Sodium 137 mEq/L 136 - 145 Potassium [...] Low >60 GFR 36 mL/min Low >60 12 Basic Metabolic Panel 11/15/2020 [facility], pc Manager New Product: [place] [address] [phone] Glucose 107 mg/dL High 74 - 99 13 BUN 29 mg/dL High 7 - 18 Creatinine 2.5 mg/dL High 0.6 - 1.3 14 Sodium 141 mEq/L 136 - 145 Potassium 4.0 mEq/L 3.5 - 5.1 Chloride 103 mEq/L 98 - 107 Carbon Dioxide 26 mEq/L 21 - 32 Calcium 9.3 mg/dL 8.5 - 10.1 GFR 25 mL/min Low >60 GFR 31 mL/min Low >60 15 Basic Metabolic Panel 11/11/2020 [facility] Manager New Product: Dr Bruce Talbot [place], [place] [address]73 [phone] Glucose 134 mg/dL High 74 - 99 16 BUN 24 mg/dL High 7 - 18 Creatinine 2.4 mg/dL High 0.6 - 1.3 Sodium 141 mEq/L 136 - 145 Potassium 3.9 mEq/L 3.5 - 5.1 Chloride 101 mEq/L 98 - 107 Carbon Dioxide 28 mEq/L 21 - 32 Calcium 9.4 mg/dL 8.5 - 10.1 GFR 27 mL/min Low >60 GFR 32 mL/min Low >60 17 Complete Blood Count 11/05/2020 [facility] pc Manager New Product: [place] [address] [phone] WBC 5.3 x10*3/UL 4.1 - 10.9 RBC 3.51 x10*6/UL Low 4.20 - 6.30 Hemoglobin 11.2 g/dL Low 12.0 - 18.0 18 Hematocrit 32.6 % Low 37.0 - 51.0 [...] 2.0 - 7.8 Basic Metabolic Panel 11/05/2020 [facility] Manager New Product: Dr Bruce Talbot [address] [id number] [phone] Glucose 121 mg/dL High 74 - 99 19 BUN 41 mg/dL High 7 - 18 Creatinine 3.1 mg/dL High 0.6 - 1.3 Sodium 139 mEq/L 136 - 145 Potassium 3.3 mEq/L Low 3.5 - 5.1 Chloride 98 mEq/L 98 - 107 Carbon Dioxide 30 mEq/L 21 - 32 Calcium 9.1 mg/dL 8.5 - 10.1 GFR 20 mL/min Low >60 GFR 24 mL/min Low >60 20 Influenza A/B RSV Covid Amp 10/28/[address] [address] [phone] Influenza A Amplification NEGATIVE Normal Negati ve 21 Influenza B Amplification NEGATIVE Normal Negative 22 RSV Amplification NEGATIVE Normal Negative 23 Sars Covid-19 Amplification NEGATIVE Normal Negative 24 CBC With Differential 10/28/[address] [address] [phone] White Blood Count 5.0 10 Normal 4.0-10.0 [...] 36.0-66.0 Lymph % 16.4 % Low 24.0-44.0 [place] % 11.1 % High 2.0-8.0 Eos % 7.3 % High 0.0-3.0 Baso % 0.4 % Normal 0.0-1.0 Immature Granulocyte % 0.6 % Normal 0-3.0 Nucleated Red Blood Cell % 0.0 % Normal 0-0 Neutrophils # 3.2 10 Normal 1.5-8.5 Lymph # 0.8 10 Low 1.5-5.0 [place] # 0.6 10 Normal 0.0-0.8 Eos # 0.4 10 Normal 0.0-0.5 Baso # 0.0 10 Normal 0.0-0.2 Istat Chem8+ Panel 10/28/2020 [facility] [address]ter [address] [place] [address] [phone] iSTAT HCT 24.0 % Low 38.0-51.0 iSTAT Glucose 123 mg/dL High 70-105 iSTAT Sodium 143 mEq/L Normal 136-145 iSTAT Potassium 3.4 mEq/L Low 3.5-5.1 iSTAT CA++ 4.8 mg/dL Normal 4.5-5.3 iSTAT Chloride 106 mEq/L Normal 98-109 iSTAT Co2 28.0 MM/L High 23.0-27.0 iSTAT BUN 25 mg/dL Normal 8-26 iSTAT Creatinine 2.5 mg/dL High 0.6-1.3 CBC With Differential 10/28/2020 [facility] [address] [place] [address] [phone] White Blood Count 5.9 10 Normal 4.0-10.0 [...] 36.0-66.0 Lymph % 16.2 % Low 24.0-44.0 [place] % 10.1 % High 2.0-8.0 Eos % 7.2 % High 0.0-3.0 Baso % 0.5 % Normal 0.0-1.0 Immature Granulocyte % 0.3 % Normal 0-3.0 Nucleated Red Blood Cell % 0.0 % Normal 0-0 Neutrophils # 3.9 10 Normal 1.5-8.5 Lymph # 1.0 10 Low 1.5-5.0 [place] # 0.6 10 Normal 0.0-0.8 Eos # 0.4 10 Normal 0.0-0.5 Baso # 0.0 10 Normal 0.0-0.2 Prothrombin Time/Inr 10/28/2020 [facility] enter [address] [place] [address] [phone] Prothrombin Time 14.8 seconds High 12.5-14.3 Inr 1.13 Normal 25 Laboratory test finding 10/28/[address] [address] [phone] Partial Thromboplastin Time 43.9 seconds High 24 .2-38.5 Cardiac Marker Panel 10/28/2020 [facility] enter [address] [place] [address] [phone] CPK Creatine Phosphokinase 136 U/L Normal 39-30 8 CK-MB Value Mass 3.2 NG/ML Normal <3.6 MB/CK Relative Index 2.35 Normal < Or =4 26 Troponin I < 0.02 NG/ML Normal < 0.10 27 Liver Profile 10/28/2020 [facility] nter [address] [place] [address] [phone] Ast/Sgot 20 U/L Normal 7-37 Alt/SGPT 14 U/L Normal 12-78 Alkaline Phosphatase 99 U/L Normal 45-117 Bilirubin,Total 1.2 mg/dL High 0.2-1.0 Bilirubin,Direct 0.1 mg/dL Normal 0.0-0.2 Total Protein 7.3 GM/DL Normal 6.4-8.2 Albumin 2.1 GM/DL Low 3.2-5.2 Albumin/Globulin Ratio 0.4 Normal Basic Metabolic Profile 10/28/[address] [address] [phone] Glucose, Fasting 133 mg/dL High 70-100 Blood Urea Nitrogen 27 mg/dL High 7-18 Creatinine For GFR 2.18 mg/dL High 0.70-1.30 Glomerular Filtration Rate 31.7 Low >42 2 8 Sodium Level 145 mEq/L Normal 136-145 Potassium Serum 3.5 mEq/L Normal 3.5-5.1 Chloride Level 108 mEq/L High 98-107 Carbon Dioxide Level 29 mEq/L Normal 21-32 Anion Gap 8 mEq/L Normal 8-16 Calcium Level 9.0 mg/dL Normal 8.8-10.2 Laboratory test finding 10/28/[address] [id number] [phone] Lipase 315 U/L Normal 73-393 Thyroid Stimulating Hormone 1.750 uIU/ML Normal 0.358-3.740 Free T4 0.71 ng/dL Low 0.76-1.46 Type & Screen -Incl Blood Type,Yung,AB SC 10/28/[address] [address] [phone] Blood Type O POSITIVE Normal AB Screen (Indirect Sloan)Vis NEGATIVE Normal Laboratory test finding 10/28/[address] [address] [phone] Packed Cells TRANSFUSED PRODU <SEE NOTE> 29 1 100-125 mg/dL PRE-DIABET ES/FASTING >126 mg/dL DIABETES/FASTING 2 NOTE: RESULT VERIFIED. NO VISIBLE HEMOLYSIS. 3 CHRONIC KIDNEY DISEASE STAGI NG PER NKF STAGE I & II GFR >= 60 NORMAL TO MILDLY DECREASED STAGE III GFR 30-59 MODERATELY DECREASED STAGE IV GFR 15-29 SEVERELY DECREASED STAGE V GFR <15 VERY LITTLE GFR LEFT ESRD GFR <15 ON MANAGER TECHNICAL 4 NOTE: RESULT VERIFIED. 5 NOTE: RESULT VERIFIED. 6 100-125 mg/dL PRE-DIABET ES/FASTING >126 mg/dL DIABETES/FASTING 7 CHRONIC KIDNEY DISEASE STAGI NG PER NKF STAGE I & II GFR >= 60 NORMAL TO MILDLY DECREASED STAGE III GFR 30-59 MODERATELY DECREASED STAGE IV GFR 15-29 SEVERELY DECREASED STAGE V GFR <15 VERY LITTLE GFR LEFT ESRD GFR <15 ON MANAGER TECHNICAL 8 NOTE: CBC VERIFIED 9 100-125 mg/dL PRE-DIABET ES/FASTING >126 mg/dL DIABETES/FASTING 10 NOTE: RESULT VERIFIED. 11 NOTE: RESULT VERIFIED. 12 CHRONIC KIDNEY DISEASE STAGI NG PER NKF STAGE I & II GFR >= 60 NORMAL TO MILDLY DECREASED STAGE III GFR 30-59 MODERATELY DECREASED STAGE IV GFR 15-29 SEVERELY DECREASED STAGE V GFR <15 VERY LITTLE GFR LEFT ESRD GFR <15 ON MANAGER TECHNICAL 13 100-125 mg/dL PRE-DIABET ES/FASTING >126 mg/dL DIABETES/FASTING 14 NOTE: RESULT VERIFIED. 15 CHRONIC KIDNEY DISEASE STAGI NG PER NKF STAGE I & II GFR >= 60 NORMAL TO MILDLY DECREASED STAGE III GFR 30-59 MODERATELY DECREASED STAGE IV GFR 15-29 SEVERELY DECREASED STAGE V GFR <15 VERY LITTLE GFR LEFT ESRD GFR <15 ON MANAGER TECHNICAL 16 100-125 mg/dL PRE-DIABET ES/FASTING >126 mg/dL DIABETES/FASTING 17 CHRONIC KIDNEY DISEASE STAGI NG PER NKF STAGE I & II GFR >= 60 NORMAL TO MILDLY DECREASED STAGE III GFR 30-59 MODERATELY DECREASED STAGE IV GFR 15-29 SEVERELY DECREASED STAGE V GFR <15 VERY LITTLE GFR LEFT ESRD GFR <15 ON MANAGER TECHNICAL 18 NOTE: RESULT VERIFIED. 19 100-125 mg/dL PRE-DIABET ES/FASTING >126 mg/dL DIABETES/FASTING 20 CHRONIC KIDNEY DISEASE STAGI NG PER NKF STAGE I & II GFR >= 60 NORMAL TO MILDLY DECREASED STAGE III GFR 30-59 MODERATELY DECREASED STAGE IV GFR 15-29 SEVERELY DECREASED STAGE V GFR <15 VERY LITTLE GFR LEFT ESRD GFR <15 ON MANAGER TECHNICAL 21 Negative results do not prec lude influenza or RSV virus infection and should not be used as the sole basis for treatment or other patient management decisions. 22 Negative results do not prec lude influenza or RSV virus infection and should not be used as the sole basis for treatment or other patient management decisions. 23 Negative results do not prec lude influenza or RSV virus infection and should not be used as the sole basis for treatment or other patient management decisions. 24 A false negative result may occur if [...] pathogens. DISCLAIMER: Testing was performed using the [employer] SARS-CoV-2 test. This test was developed and its performance characteristics determined by [employer]. This test has not been FDA cleared [...] the authorization is terminated or revoked sooner. 25 THERAPUTIC HUMAN INR VALUES INDICATIONS NORMAL RANGES PROPHYLAXIS/TREATMENT OF: VENOUS THROMBOSIS 2.0-3.0 PULMONARY EMBOLISM 2.0-3.0 PREVENTION OF SYSTEMIC EMBOLISM FROM: TISSUE HEART VALVES 2.0-3.0 ACUTE MYOCARDIAL INFARCTION 2.0-3.0 VALVULAR HEART DISEASE 2.0-3.0 ATRIAL FIBRILLATION 2.0-3.0 MECHANICAL VALVES(HIGH RISK) 2.5-3.5 RECURRENT MYOCARDIAL INFARCTION 2.5-3.5 26 DIAGNOSIS CRITERIA MMB ng/ml Relative Index (RI) NON-AMI < or = 5 N/A PHELPS ZONE > 5 < or = 4 AMI > 5 > 4 27 Troponin I Reference Interva l for Siemens Beattie LOCI: 99th Percentile= 0.00-0.045 ng/ml Risk Stratification: <= 0.10 ng/ml Decreased Risk for Adverse Clinical Events. 0.10-1.50 ng/ml Increased Risk for Adv erse Clinical Events. Evaluation of additional criterion and/or repeat testing in 2-6 hours is suggested to rule out myocardial damage. >= 1.50 ng/ml Indicative of Myocardial Injury. 28 Units are mL/min/1.73 m2 Chronic Kidney Disease Staging per NKF: Stage I & II GFR >=60 Normal to Mildly Decreased Stage III GFR 30-59 Moderately Decreased Stage IV GFR 15-29 Severely Decreased Stage V GFR <15 Very Little GFR Left ESRD GFR <15 on MANAGER TECHNICAL 29 TRANSFUSED PRODUCT: PACKED C ELLS COUNT: 1 Procedures Date Code Description Status 03/03/2021 57643 Office/Outpatient Established Mo d MDM 30-39 Min Completed 12/06/2020 95722 Office/Outpatient Established Mo d MDM 30-39 Min Completed 11/05/2020 26920 Office/Outpatient Established Mo d MDM 30-39 Min Completed 08/16/2019 10489480 Colonoscopy Completed 08/01/2008 95256665 Colonoscopy Completed 03/06/2003 348517297 Bone Mineral Density Test Comple Versie Christian Companion Description No Information Available Encounters Type Date Location Provider Dx Diagnosis Office Visit 03/03/2021 2:30p [facility] ,DO R19.7 Diarrhea, unspecified I12.9 Hypertensive chronic kidney disease w stg 1-4/unsp chr kdny N18.32 Chronic kidney disease, stag e 3b T84.53xD 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, subs B95.[address] inf ct causing dis classd elswhr I33.0 Acute and subacute infective endocarditis Office Visit 12/06/2020 10:20a [facility],DO Z01.818 Encounter for other preprocedural examin ation Z96.651 Presence of right artificial knee joint T84.53xD 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, subs A49.01 Methicillin suscep staph inf ection, unsp site I33.0 Acute and subacute infective endocarditis I12.9 Hypertensive chronic kidney disease w stg 1-4/unsp chr kdny N18.32 Chronic kidney disease, stag e 3b E78.5 Hyperlipidemia, unspecified 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 Office Visit 11/05/2020 9:00a [facility],DO T84.53xA Infect/inflm reaction due to internal r [...] internal right knee prosthesis, subsequent encounter Reg Talbot DO 04/21/2021 Z96.651 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 Reg Talbot, DO 04/21/2021 I12.9 Hypertensive chronic kidney disease with stage 1 through stage 4 chronic kidney disease, or unspecified chronic kidney disease Reg Talbot, DO 04/21/2021 N18.4 Chronic kidney disease stage 4 C hrapril Talbot, DO 04/21/2021 D64.9 Anemia, unspecified Reg Talbot, DO 03/25/2021 Z01.810 Encounter for preprocedural card iovascular examination Reg Talbot, DO 03/25/2021 T84.53xD Infection and inflam matory reaction due to internal right knee prosthesis, subsequent encounter Maokena Talbot, DO 03/25/2021 A49.01 Methicillin suscepti ble Staphylococcus aureus infection, unspecified site Maokena Talbot, DO 03/25/2021 I12.9 Hypertensive chronic kidney disease with stage 1 through stage 4 chronic kidney disease, or unspecified chronic kidney disease Maokena Josephlogg, DO 03/03/2021 R19.7 Diarrhea Paulette Amelia,DO 03/03/2021 I12.9 Hypertensive chronic kidney disease with [...] Paulette Cisneros,DO 12/06/2020 E78.5 Hyperlipidemia, unspecified Abhay Cisneros,DO 12/06/2020 Z79.82 alf (current) use of aspir in Paulette Cisneros,DO 11/15/2020 I12.9 Hypertensive chronic kidney disease with stage 1 through stage 4 chronic kidney disease, or unspecified chronic kidney disease Paulette Cisneros,DO 11/15/2020 I12.9 Hypertensive chronic kidney disease with stage 1 through stage 4 chronic kidney disease, or unspecified chronic kidney disease Lab Schedule 11/15/2020 N18.32 Chronic kidney disease, stage 3b Paulette Cisneros,DO 11/15/2020 N18.32 Chronic kidney disease, stage 3b Lab Schedule 11/11/2020 I12.9 Hypertensive chronic kidney disease with stage 1 through stage 4 chronic kidney disease, or unspecified chronic kidney disease Paulette Cisneros,DO 11/11/2020 I12.9 Hypertensive chronic kidney dise ase with stage 1 through sta Lab Schedule 11/11/2020 N18.32 Chronic kidney disease, stage 3b Paulette Cisneros,DO 11/11/2020 N18.32 Chronic kidney disease, stage 3b Lab Schedule 11/05/2020 T84.53xA Infection and inflam matory reaction due to internal right knee prosthesis, initial encounter Paulette Cisneros,DO 11/05/2020 Z96.651 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 Paulette Cisneros,DO 11/05/2020 L03.115 Cellulitis of right lower limb L marisol Cisneros,DO 11/05/2020 I33.0 Acute and subacute infective end ocarditis Paulette Cisneros,DO 11/05/2020 A49.01 Methicillin suscepti ble Staphylococcus aureus infection, unspecified site Paulette Cisneros,DO 11/05/2020 I12.9 Hypertensive chronic kidney dise ase with stage 1 through sta Paulette Cisneros,DO 11/05/2020 N18.32 Chronic kidney disease, stage 3b Paulette Cisneros DO 11/05/2020 D64.9 Anemia, unspecified Paulette Cisneros DO Plan of Treatment Future Appointment(s):* 04/28/2021 10:20 am - Lab Schedule at [facility] * 05/16/2021 3:00 pm - Reg Talbot [facility] 04/21/2021 - Reg Talbot DO* T84.53xD Infection and inflammatory reaction due [...]
--- OUTSIDE RECORDS SUMMARY | 2021-05-09 10:12 | CCD ---
Author Author [facility] Organization [facility] Address Unknown Phone Unavailable Care Team Providers Care Paving Crew Foreman Name Role Phone Arley Umana Unavailable PROBLEMS Type Condition ICD9-CM Code UOT01-PZ Code Onset Dates Condition S tatus W/U Status Risk SNOMED Code Notes Problem DDD (degenerative disc disease), lumbar M51.36 Active confirmed 53967165 Problem Presence of unspecified artificial knee joint Z96. 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 Active confirmed 34620213 Problem MSSA (methicillin susceptible Staphylococcus aureus) A49.01 Active confirmed 904269239 ALLERGIES No Known Allergies ENCOUNTERS from 1945 to 2021-04-22 Encounter Location Date Provider Diagnosis [facility] [place] [address] [facility] [phone] [place] [address] Mar, Arley Umana IMMUNIZATIONS Vaccine Route Administration Date Status Influenza 18 yrs & older Flublok IM Intramuscular Apr 21, 2021 Administered SOCIAL HISTORY Tobacco Use: Social History Observation Description Date Details (start date - stop date) Never Smoker Sex Assigned At : Social History Observation Description Sex Assigned At Unknown Education: Question Answer Notes Level of Education: Finished College Language: Question Answer Notes Languages spoken: Algerian Zoroastrian: Question Answer Notes Zoroastrian 08 [employer] Sexual Hx: Question Answer Notes Had sex in the last 12 months (vaginal, oral, or anal)? Yes with Women only Alcohol Screening: Question Answer Notes Did you have a drink containing alcohol in the past year? No Points 0 Interpretation Negative Tobacco Use: Question Answer Notes Are you a: never smoker REASON FOR REFERRAL No Information VITAL SIGNS No information MEDICATIONS Medication SIG (Take, Route, Frequency, Duration) Notes Start Da te End Date Status Vitamin B12 100 MCG as directed Orally Active Atenolol 25 MG TAKE 1 TABLET BY MOUTH EVERY DAY Oral Active Aspir-Low 81 MG 1 tablet Orally Once a day for 30 day(s) Active traMADol HCl 50 MG (Schedule IV Drug) TAKE 1 TA BLET BY MOUTH TWICE A DAY NEEDED, FOR PAIN Oral Active Multivitamin - 1 tablet Orally Once a day for 30 day(s) Active Gabapentin 800 MG TAKE 1 TABLET BY MOUTH TWICE A DAY Oral Active Atorvastatin Calcium 40 MG TAKE 1 TABLET BY MOUTH AT BEDTIME Oral for 30 Active hydrALAZINE HCl 10 MG TAKE 1 TABLET BY MOUTH TWICE A DAY Oral Active PROCEDURES No Information RESULTS No Results REASON FOR VISIT No Information MEDICAL (GENERAL) HISTORY Type Description Date Medical [...] No Information FUNCTIONAL STATUS No Information ASSESSMENTS No Information PLAN OF TREATMENT Medication Medication Name Sig Start Date Stop Date Atenolol 25 MG TAKE 1 TABLET BY MOUTH EVERY DAY Oral Gabapentin 800 MG TAKE 1 TABLET BY MOUTH TWICE A DAY Oral traMADol HCl 50 MG (Schedule IV Drug) TAKE 1 TA BLET BY MOUTH TWICE A DAY NEEDED, FOR PAIN Oral hydrALAZINE HCl 10 MG TAKE 1 TABLET BY MOUTH TWICE A DAY Oral Next Appt Details Provider Name:Arley Umana, 1-10-0 5 09:00:00 AM, [address] [place] [address], , [place], [address], Insurance Providers Payer Name Payer Address Payer Phone Insured Name Patient Relati onship to Insured Coverage Start Date Coverage End Date [facility] [address] [address] [facility] [id number] [phone] KATHI WATERS self
--- OUTSIDE RECORDS SUMMARY | 2021-05-09 10:12 | CCD | Continuity of Care Document ---
Author Author Hossein TILLMAN MD Organization Unknown Address [id number] [place] [address] , [facility] [place] [address] Phone [phone] Care Team Providers Care Application Tester Name Role Phone Paulette Cisneros D.O.M [phone] Problems Active Problems Provider Date Essential hypertension David Tillman MD Onset: 11/29/2020 Social History Type Date Description Comments Sex Unknown ETOH Use Denies alcohol use Tobacco Use Start: Unknown Denies Smoking Recreational Drug Use Denies Drug Use Smoking Status Reviewed: 04/14/21 Denies Smoking Allergies, Adverse Reactions, Alerts Description No Known Drug Allergies Medications Active [...] Information Available Procedures Date Code Description Status 04/25/2021 36552 Office/Outpatient Established SF MDM 10-19 Min Completed 04/09/2021 05523 Revise Total Knee Ar throplasty Femoral & Entire Tibial Component Completed 04/08/2021 79278 Office/Outpatient Established Lo w MDM 20-29 Min Completed 03/06/2021 35076 Office/Outpatient Established Mo d MDM 30-39 Min Completed 12/10/2020 54072 Remove Total Knee Prosthesis Com pleted 12/10/2020 40793 Insertion, Non-Biodegradable Nickolas g Delivery Implant Completed 11/29/2020 06862 Office/Outpatient Established Mo d MDM 30-39 Min Completed Medical Devices Description No Information Available Encounters Type Date Location Provider Dx Diagnosis Office Visit 04/25/2021 9:30a [facility] David Tillman MD Z96.651 Presence of right artificial knee joint T14.90xA Injury, unspecified, initial encounter Office Visit 04/14/2021 2:30p Henry Tillman MD Z96.651 Presence of right artificial knee joint T14.90xA Injury, unspecified, initial encounter Z47.89 Encounter for other orthoped ic aftercare Office Visit 04/08/2021 1:00p [facility] David Tillman MD T84.53xD 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, subs Office Visit 03/06/2021 10:00a Henry Tillman MD T84.53xA 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, init Office Visit 02/24/2021 10:30a Henry Tillman MD T84.53xD 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, subs Z47.89 Encounter for other orthoped ic aftercare Office Visit 01/24/2021 11:00a [facility] David Tillman MD Z47.89 Encounter for other orthopedic aftercare T84.53xD 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, subs Office Visit 01/20/2021 1:00p Henry Tillman MD Z48.02 Encounter for removal of sutures T84.53xD 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, subs Z47.89 Encounter for other orthoped ic aftercare Office Visit 01/01/2021 11:00a [facility] Tillman MD T84.53xD 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, subs Office Visit 12/24/2020 9:30a [facility] Tillman MD T84.53xD 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, subs Z48.02 Encounter for removal of sut ures Office Visit 11/29/2020 10:30a Henry Tillman MD T84.59xA Infect/inflm reaction due to oth internal joint prosth, init Assessments Date Code Description Provider 04/25/2021 Z96.651 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 David Tillman MD 04/25/2021 T14.90xA Wound David Tillman MD 04/14/2021 Z96.651 Presence of [...] 1:00 pm - David Tillman MD at [facility] 04/25/2021 - David Tillman MD* Z96.651 [...] persistent issues with drainage. * T14.90xA Wound Functional Status Functional Condition Comment Date Status Rolling walker is used to ambulate Active Brace knee immobilizer right knee Act tristan Mental Status Description No Information Available Referrals Description No Information Available
--- OUTSIDE RECORDS SUMMARY | 2021-05-09 10:12 | CCD | Continuity of Care Document ---
Author Author Hossein TALBOT DO Organization Unknown Address [address] [facility] [address] [place] [address] Phone [phone] Care Team Providers Care Cutting Machine Fixer Name Role Phone [facility] AUTM [phone] Reg Talbot DO AUTM [phone] Problems Active Problems Provider Date Osteoarthritis Thea [...] Given 04/30/2019 Influenza,Unspecified U-Flu Given 05/24/2018 Influenza,Unspecified 53668 Given 08/18/2013 Pneumovax 23 84348 Given 04/26/2008 Influenza Virus Vaccine 39659 Refused 05/25/2017 Influenza Vaccin e Quadrivalent Preser/Antibiotic [...] H/L Range Note Laboratory test finding 04/21/2021 [facility] justin colon Simulation Technician: [place] [address] [phone] Sed Rate <pending> Laboratory test finding 04/21/2021 [facility] [address] [place] [address] [phone] High Sensitivity C-Reactive Protein <pending> Complete Blood Count 03/25/2021 [facility] Simulation Technician: [place] [address] [phone] WBC 5.0 x10*3/UL 4.1 - 10.9 RBC 3.20 x10*6/UL Low 4.20 - 6.30 Hemoglobin 10.2 g/dL Low 12.0 - 18.0 1 Hematocrit 29.5 % Low 37.0 - 51.0 [...] 2.0 - 7.8 Comprehensive Chem Profile 03/25/2021 [facility] justin Benitez Simulation Technician: [place] [address] [phone] Glucose 91 mg/dL 74 - 99 2 BUN 38 mg/dL High 7 - 18 [...] mL/min Low >60 3 Laboratory test finding 03/07/2021 [facility] [address] [place] [address] [phone] C Reactive Protein Quantitativ 2.78 mg/dL High 0 .00-0.30 CBC With Differential 03/07/2021 [facility] [address] [place] [address] [phone] White Blood Count 5.3 10 Normal 4.0-10.0 [...] 36.0-66.0 Lymph % 26.6 % Normal 24.0-44.0 [place] % 11.0 % High 2.0-8.0 Eos % 8.7 % High 0.0-3.0 Baso % 0.2 % Normal 0.0-1.0 Immature Granulocyte % 0.6 % Normal 0-3.0 Nucleated Red Blood Cell % 0.0 % Normal 0-0 Neutrophils # 2.8 10 Normal 1.5-8.5 Lymph # 1.4 10 Low 1.5-5.0 [place] # 0.6 10 Normal 0.0-0.8 Eos # 0.5 10 Normal 0.0-0.5 Baso # 0.0 10 Normal 0.0-0.2 Laboratory test finding 03/07/2021 [facility] [address], [place] [address] [phone] Erythrocyte Sedimentation Rate 106 mm/hr High 0 -20 Complete Blood Count 03/03/2021 [facility] Simulation Technician: [place] [address] [phone] WBC 5.9 x10*3/UL 4.1 - 10.9 4 RBC 2.95 x10*6/UL Low 4.20 - 6.30 [...] 2.0 - 7.8 Comprehensive Chem Profile 03/03/2021 [facility] Simulation Technician: [place] [address] [phone] Glucose 102 mg/dL High 74 - 99 5 BUN 40 mg/dL High 7 - 18 6 Creatinine 2.2 mg/dL High 0.6 - 1.3 7 Sodium 137 mEq/L 136 - 145 Potassium [...] Low >60 GFR 36 mL/min Low >60 8 Basic Metabolic Panel 11/15/2020 [facility] Simulation Technician: [place] [address] [phone] Glucose 107 mg/dL High 74 - 99 9 BUN 29 mg/dL High 7 - 18 Creatinine 2.5 mg/dL High 0.6 - 1.3 10 Sodium 141 mEq/L 136 - 145 Potassium 4.0 mEq/L 3.5 - 5.1 Chloride 103 mEq/L 98 - 107 Carbon Dioxide 26 mEq/L 21 - 32 Calcium 9.3 mg/dL 8.5 - 10.1 GFR 25 mL/min Low >60 GFR 31 mL/min Low >60 11 Basic Metabolic Panel 11/11/2020 [facility] jenny, pc Simulation Technician: [place] [address] [phone] Glucose 134 mg/dL High 74 - 99 12 BUN 24 mg/dL High 7 - 18 Creatinine 2.4 mg/dL High 0.6 - 1.3 Sodium 141 mEq/L 136 - 145 Potassium 3.9 mEq/L 3.5 - 5.1 Chloride 101 mEq/L 98 - 107 Carbon Dioxide 28 mEq/L 21 - 32 Calcium 9.4 mg/dL 8.5 - 10.1 GFR 27 mL/min Low >60 GFR 32 mL/min Low >60 13 Complete Blood Count 11/05/2020 [facility] Simulation Technician: [place] [address] [phone] WBC 5.3 x10*3/UL 4.1 - 10.9 RBC 3.51 x10*6/UL Low 4.20 - 6.30 Hemoglobin 11.2 g/dL Low 12.0 - 18.0 14 Hematocrit 32.6 % Low 37.0 - 51.0 [...] 2.0 - 7.8 Basic Metabolic Panel 11/05/2020 [facility] justin alvarado Simulation Technician: [place] [address] [phone] Glucose 121 mg/dL High 74 - 99 15 BUN 41 mg/dL High 7 - 18 Creatinine 3.1 mg/dL High 0.6 - 1.3 Sodium 139 mEq/L 136 - 145 Potassium 3.3 mEq/L Low 3.5 - 5.1 Chloride 98 mEq/L 98 - 107 Carbon Dioxide 30 mEq/L 21 - 32 Calcium 9.1 mg/dL 8.5 - 10.1 GFR 20 mL/min Low >60 GFR 24 mL/min Low >60 16 Influenza A/B RSV Covid Amp 10/28/[address] [address] [phone] Influenza A Amplification NEGATIVE Normal Negati ve 17 Influenza B Amplification NEGATIVE Normal Negative 18 RSV Amplification NEGATIVE Normal Negative 19 Sars Covid-19 Amplification NEGATIVE Normal Negative 20 CBC With Differential 10/28/[address] [address] [phone] White Blood Count 5.0 10 Normal 4.0-10.0 [...] 36.0-66.0 Lymph % 16.4 % Low 24.0-44.0 [place] % 11.1 % High 2.0-8.0 Eos % 7.3 % High 0.0-3.0 Baso % 0.4 % Normal 0.0-1.0 Immature Granulocyte % 0.6 % Normal 0-3.0 Nucleated Red Blood Cell % 0.0 % Normal 0-0 Neutrophils # 3.2 10 Normal 1.5-8.5 Lymph # 0.8 10 Low 1.5-5.0 [place] # 0.6 10 Normal 0.0-0.8 Eos # 0.4 10 Normal 0.0-0.5 Baso # 0.0 10 Normal 0.0-0.2 Istat Chem8+ Panel 10/28/2020 [facility] nter [address] [place] [address] [phone] iSTAT HCT 24.0 % Low 38.0-51.0 iSTAT Glucose 123 mg/dL High 70-105 iSTAT Sodium 143 mEq/L Normal 136-145 iSTAT Potassium 3.4 mEq/L Low 3.5-5.1 iSTAT CA++ 4.8 mg/dL Normal 4.5-5.3 iSTAT Chloride 106 mEq/L Normal 98-109 iSTAT Co2 28.0 MM/L High 23.0-27.0 iSTAT BUN 25 mg/dL Normal 8-26 iSTAT Creatinine 2.5 mg/dL High 0.6-1.3 CBC With Differential 10/28/2020 [facility] [address] [place] [address] [phone] White Blood Count 5.9 10 Normal 4.0-10.0 [...] 36.0-66.0 Lymph % 16.2 % Low 24.0-44.0 [place] % 10.1 % High 2.0-8.0 Eos % 7.2 % High 0.0-3.0 Baso % 0.5 % Normal 0.0-1.0 Immature Granulocyte % 0.3 % Normal 0-3.0 Nucleated Red Blood Cell % 0.0 % Normal 0-0 Neutrophils # 3.9 10 Normal 1.5-8.5 Lymph # 1.0 10 Low 1.5-5.0 [place] # 0.6 10 Normal 0.0-0.8 Eos # 0.4 10 Normal 0.0-0.5 Baso # 0.0 10 Normal 0.0-0.2 Prothrombin Time/Inr 10/28/2020 [facility] [address] [place] [address] [phone] Prothrombin Time 14.8 seconds High 12.5-14.3 Inr 1.13 Normal 21 Laboratory test finding 10/28/2020 [facility] [address] [place] [address] [phone] Partial Thromboplastin Time 43.9 seconds High 24 .2-38.5 Cardiac Marker Panel 10/28/2020 [facility] [address] [place] [address] [phone] CPK Creatine Phosphokinase 136 U/L Normal 39-30 8 CK-MB Value Mass 3.2 NG/ML Normal <3.6 MB/CK Relative Index 2.35 Normal < Or =4 22 Troponin I < 0.02 NG/ML Normal < 0.10 23 Liver Profile 10/28/2020 [facility] nter [address] [place] [address] [phone] Ast/Sgot 20 U/L Normal 7-37 Alt/SGPT 14 U/L Normal 12-78 Alkaline Phosphatase 99 U/L Normal 45-117 Bilirubin,Total 1.2 mg/dL High 0.2-1.0 Bilirubin,Direct 0.1 mg/dL Normal 0.0-0.2 Total Protein 7.3 GM/DL Normal 6.4-8.2 Albumin 2.1 GM/DL Low 3.2-5.2 Albumin/Globulin Ratio 0.4 Normal Basic Metabolic Profile 10/28/2020 [place] [address] [place] [address] [phone] Glucose, Fasting 133 mg/dL High 70-100 Blood Urea Nitrogen 27 mg/dL High 7-18 Creatinine For GFR 2.18 mg/dL High 0.70-1.30 Glomerular Filtration Rate 31.7 Low >42 2 4 Sodium Level 145 mEq/L Normal 136-145 Potassium Serum 3.5 mEq/L Normal 3.5-5.1 Chloride Level 108 mEq/L High 98-107 Carbon Dioxide Level 29 mEq/L Normal 21-32 Anion Gap 8 mEq/L Normal 8-16 Calcium Level 9.0 mg/dL Normal 8.8-10.2 Laboratory test finding 10/28/[address] [id number] [phone] Lipase 315 U/L Normal 73-393 Thyroid Stimulating Hormone 1.750 uIU/ML Normal 0.358-3.740 Free T4 0.71 ng/dL Low 0.76-1.46 Type & Screen -Incl Blood Type,Yung,AB SC 10/28/[address] [address] [phone] Blood Type O POSITIVE Normal AB Screen (Indirect Sloan)Vis NEGATIVE Normal Laboratory test finding 10/28/[address] [address] [phone] Packed Cells TRANSFUSED PRODU <SEE NOTE> 25 1 NOTE: RESULT VERIFIED. 2 100-125 mg/dL PRE-DIABET ES/FASTING >126 mg/dL DIABETES/FASTING 3 CHRONIC KIDNEY DISEASE STAGI NG PER NKF STAGE I & II GFR >= 60 NORMAL TO MILDLY DECREASED STAGE III GFR 30-59 MODERATELY DECREASED STAGE IV GFR 15-29 SEVERELY DECREASED STAGE V GFR <15 VERY LITTLE GFR LEFT ESRD GFR <15 ON COOKER CHIP 4 NOTE: CBC VERIFIED 5 100-125 mg/dL PRE-DIABET ES/FASTING >126 mg/dL DIABETES/FASTING 6 NOTE: RESULT VERIFIED. 7 NOTE: RESULT VERIFIED. 8 CHRONIC KIDNEY DISEASE STAGI NG PER NKF STAGE I & II GFR >= 60 NORMAL TO MILDLY DECREASED STAGE III GFR 30-59 MODERATELY DECREASED STAGE IV GFR 15-29 SEVERELY DECREASED STAGE V GFR <15 VERY LITTLE GFR LEFT ESRD GFR <15 ON COOKER CHIP 9 100-125 mg/dL PRE-DIABET ES/FASTING >126 mg/dL DIABETES/FASTING 10 NOTE: RESULT VERIFIED. 11 CHRONIC KIDNEY DISEASE STAGI NG PER NKF STAGE I & II GFR >= 60 NORMAL TO MILDLY DECREASED STAGE III GFR 30-59 MODERATELY DECREASED STAGE IV GFR 15-29 SEVERELY DECREASED STAGE V GFR <15 VERY LITTLE GFR LEFT ESRD GFR <15 ON COOKER CHIP 12 100-125 mg/dL PRE-DIABET ES/FASTING >126 mg/dL DIABETES/FASTING 13 CHRONIC KIDNEY DISEASE STAGI NG PER NKF STAGE I & II GFR >= 60 NORMAL TO MILDLY DECREASED STAGE III GFR 30-59 MODERATELY DECREASED STAGE IV GFR 15-29 SEVERELY DECREASED STAGE V GFR <15 VERY LITTLE GFR LEFT ESRD GFR <15 ON COOKER CHIP 14 NOTE: RESULT VERIFIED. 15 100-125 mg/dL PRE-DIABET ES/FASTING >126 mg/dL DIABETES/FASTING 16 CHRONIC KIDNEY DISEASE STAGI NG PER NKF STAGE I & II GFR >= 60 NORMAL TO MILDLY DECREASED STAGE III GFR 30-59 MODERATELY DECREASED STAGE IV GFR 15-29 SEVERELY DECREASED STAGE V GFR <15 VERY LITTLE GFR LEFT ESRD GFR <15 ON COOKER CHIP 17 Negative results do not prec lude influenza or RSV virus infection and should not be used as the sole basis for treatment or other patient management decisions. 18 Negative results do not prec lude influenza or RSV virus infection and should not be used as the sole basis for treatment or other patient management decisions. 19 Negative results do not prec lude influenza or RSV virus infection and should not be used as the sole basis for treatment or other patient management decisions. 20 A false negative result may occur if [...] pathogens. DISCLAIMER: Testing was performed using the [employer] SARS-CoV-2 test. This test was developed and its performance characteristics determined by [employer]. This test has not been FDA cleared [...] the authorization is terminated or revoked sooner. 21 THERAPUTIC HUMAN INR VALUES INDICATIONS NORMAL RANGES PROPHYLAXIS/TREATMENT OF: VENOUS THROMBOSIS 2.0-3.0 PULMONARY EMBOLISM 2.0-3.0 PREVENTION OF SYSTEMIC EMBOLISM FROM: TISSUE HEART VALVES 2.0-3.0 ACUTE MYOCARDIAL INFARCTION 2.0-3.0 VALVULAR HEART DISEASE 2.0-3.0 ATRIAL FIBRILLATION 2.0-3.0 MECHANICAL VALVES(HIGH RISK) 2.5-3.5 RECURRENT MYOCARDIAL INFARCTION 2.5-3.5 22 DIAGNOSIS CRITERIA MMB ng/ml Relative Index (RI) NON-AMI < or = 5 N/A PHELPS ZONE > 5 < or = 4 AMI > 5 > 4 23 Troponin I Reference Interva l for [employer] LOCI: 99th Percentile= 0.00-0.045 ng/ml Risk Stratification: <= 0.10 ng/ml Decreased Risk for Adverse Clinical Events. 0.10-1.50 ng/ml Increased Risk for Adv erse Clinical Events. Evaluation of additional criterion and/or repeat testing in 2-6 hours is suggested to rule out myocardial damage. >= 1.50 ng/ml Indicative of Myocardial Injury. 24 Units are mL/min/1.73 m2 Chronic Kidney Disease Staging per NKF: Stage I & II GFR >=60 Normal to Mildly Decreased Stage III GFR 30-59 Moderately Decreased Stage IV GFR 15-29 Severely Decreased Stage V GFR <15 Very Little GFR Left ESRD GFR <15 on COOKER CHIP 25 TRANSFUSED PRODUCT: PACKED C ELLS COUNT: 1 Procedures Date Code Description Status 03/03/2021 59707 Office/Outpatient Established Mo d MDM 30-39 Min Completed 12/06/2020 59763 Office/Outpatient Established Mo d MDM 30-39 Min Completed 11/05/2020 24118 Office/Outpatient Established Mo d MDM 30-39 Min Completed 08/16/2019 [id number] Colonoscopy Completed 08/01/2008 [id number] Colonoscopy Completed 03/06/2003 [id number] Bone Mineral Density Test Comple iKoa Description No Information Available Encounters Type Date Location Provider Dx Diagnosis Office Visit 03/03/2021 2:30p [facility] Paulette Cisneros DO R19.7 Diarrhea, unspecified I12.9 Hypertensive chronic kidney disease w stg 1-4/unsp chr kdny N18.32 Chronic kidney disease, stag e 3b T84.53xD 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, subs B95.61 [address] inf ct causing dis classd elswhr I33.0 Acute and subacute infective endocarditis Office Visit 12/06/2020 10[facility]a [facility] Z01.818 Encounter for other preprocedural examin ation Z96.651 Presence of right artificial knee joint T84.53xD 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, subs A49.01 Methicillin suscep staph inf ection, unsp site I33.0 Acute and subacute infective endocarditis I12.9 Hypertensive chronic kidney disease w stg 1-4/unsp chr kdny N18.32 Chronic kidney disease, stag e 3b E78.5 Hyperlipidemia, unspecified Z79.82 buttermaker (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7 Diarrhea Paulette Cisneros,DO 03/03/2021 I12.9 Hypertensive chronic kidney disease with stage 1 through stage 4 chronic kidney disease, or unspecified chronic kidney disease Paulette Amelia,DO 03/03/2021 N18.32 Chronic kidney disease, stage 3b Paulette Amelia,DO 03/03/2021 T84.53xD Infection and inflam matory reaction [...] Acute and subacute infective end ocarditis Paulette Amelia,DO 12/06/2020 I12.9 Hypertensive chronic kidney disease with stage 1 through stage 4 chronic kidney disease, or unspecified chronic kidney disease Paulette Cisneros,DO 12/06/2020 N18.32 Chronic kidney disease, stage 3b Paulette Amelia,DO 12/06/2020 E78.5 Hyperlipidemia, unspecified Abhay Cisneros,DO 12/06/2020 Z79.82 buttermaker (current) use of aspir in Paulette Amelia,DO 11/15/2020 I12.9 Hypertensive chronic kidney disease with stage 1 through stage 4 chronic kidney disease, or unspecified chronic kidney disease Paulette Cisneros,DO 11/15/2020 I12.9 Hypertensive chronic kidney disease with stage 1 through stage 4 chronic kidney disease, or unspecified chronic kidney disease Lab Schedule 11/15/2020 N18.32 Chronic kidney disease, stage 3b Pauletteadrian Cisneros,DO 11/15/2020 N18.32 Chronic kidney disease, stage [...] 04/28/2021 10:20 am - Lab Schedule at [facility] * 05/16/2021 3:00 pm - Reg Talbot DO at [facility] 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
--- OUTSIDE RECORDS SUMMARY | 2021-05-09 10:12 | CCD | Continuity of Care Document ---
Author Author Hossein TALBOT DO Organization Unknown Address [address] [facility] [address] [place] [address] Phone [phone] Care Team Providers Care Social Work Nurse Name Role Phone Scientologist [facility] AUTM [phone] Reg Talbot DO AUTM [phone] Problems Active Problems Provider Date Osteoarthritis Thea [...] Given 04/30/2019 Influenza,Unspecified U-Flu Given 05/24/2018 Influenza,Unspecified 69699 Given 08/18/2013 Pneumovax 23 32951 Given 04/26/2008 Influenza Virus Vaccine 45587 Refused 05/25/2017 Influenza Vaccin e Quadrivalent Preser/Antibiotic [...] H/L Range Note Laboratory test finding 04/21/2021 [facility] It Technician: Dr Bruce Talbot [place], [place] [id number] [phone] Sed Rate 57 mm/hr High 0 - 15 Basic Metabolic Panel 04/21/2021 [facility] Gonzalez It Technician: Dr Bruce Talbot [place], [place] [address] [phone] Glucose 81 mg/dL 74 - 99 1 [...] Low >60 3 Laboratory test finding 04/21/2021 [facility] [address] [id number] [phone] C Reactive Protein Quantitativ 2.11 mg/dL High 0 .00-0.30 Total Iron Binding Capacit 04/21/[address] [address] [phone] Iron (Fe) 53 g/dL Low 65-175 Total Iron Binding Capacity 220 g/dL Low 250-450 Percent Saturation 24.1 % Normal 19.7-50.0 Laboratory test finding 04/21/[address] [address] [phone] Ferritin 188 NG/ML Normal 26-388 Complete Blood Count 04/21/2021 [facility] It Technician: [place] [address] [phone] WBC 9.3 x10*3/UL 4.1 - 10.9 RBC [...] 2.0 - 7.8 Complete Blood Count 03/25/2021 [facility] It Technician: [place] [address] [phone] WBC 5.0 x10*3/UL 4.1 - 10.9 RBC [...] 2.0 - 7.8 Comprehensive Chem Profile 03/25/2021 [facility] Benitez It Technician: Dr Bruce Talbot [place], [place] [address] [phone] Glucose 91 mg/dL 74 - 99 6 [...] Low >60 7 Laboratory test finding 03/07/2021 [facility] [address] [place] [address] [phone] C Reactive Protein Quantitativ 2.78 mg/dL High 0 .00-0.30 CBC With Differential 03/07/2021 [address] [place] [address] [phone] White Blood Count 5.3 10 Normal 4.0-10.0 [...] 36.0-66.0 Lymph % 26.6 % Normal 24.0-44.0 Stephenson % 11.0 % High 2.0-8.0 Eos % 8.7 % High 0.0-3.0 Baso % 0.2 % Normal 0.0-1.0 Immature Granulocyte % 0.6 % Normal 0-3.0 Nucleated Red Blood Cell % 0.0 % Normal 0-0 Neutrophils # 2.8 10 Normal 1.5-8.5 Lymph # 1.4 10 Low 1.5-5.0 Stephenson # 0.6 10 Normal 0.0-0.8 Eos # 0.5 10 Normal 0.0-0.5 Baso # 0.0 10 Normal 0.0-0.2 Laboratory test finding 03/07/2021 [address] [place] [address] [phone] Erythrocyte Sedimentation Rate 106 mm/hr High 0 -20 Complete Blood Count 03/03/2021 [facility] It Technician: [place] [address] [phone] WBC 5.9 x10*3/UL 4.1 - 10.9 8 [...] 2.0 - 7.8 Comprehensive Chem Profile 03/03/2021 [facility] Benitez It Technician: [place] [address] [phone] Glucose 102 mg/dL High 74 - 99 [...] Low >60 12 Basic Metabolic Panel 11/15/2020 [facility] It Technician: [place] [address] [phone] Glucose 107 mg/dL High 74 - 99 [...] Low >60 15 Basic Metabolic Panel 11/11/2020 [facility] It Technician: Dr Bruce Talbot [place], [place] [address]69 [phone] Glucose 134 mg/dL High 74 - 99 [...] Low >60 17 Complete Blood Count 11/05/2020 [facility] It Technician: [place] [address] [phone] WBC 5.3 x10*3/UL 4.1 - 10.9 RBC [...] 2.0 - 7.8 Basic Metabolic Panel 11/05/2020 [facility] It Technician: Dr Bruce Talbot [place] [id number] [phone] Glucose 121 mg/dL High 74 - 99 [...] 20 Influenza A/B RSV Covid Amp 10/28/[address] [address] [phone] Influenza A Amplification NEGATIVE Normal Negati ve 21 Influenza B Amplification NEGATIVE Normal Negative 22 RSV Amplification NEGATIVE Normal Negative 23 Sars Covid-19 Amplification NEGATIVE Normal Negative 24 CBC With Differential 10/28/[address] [address] [phone] White Blood Count 5.0 10 Normal 4.0-10.0 [...] 36.0-66.0 Lymph % 16.4 % Low 24.0-44.0 Stephenson % 11.1 % High 2.0-8.0 Eos % 7.3 % High 0.0-3.0 Baso % 0.4 % Normal 0.0-1.0 Immature Granulocyte % 0.6 % Normal 0-3.0 Nucleated Red Blood Cell % 0.0 % Normal 0-0 Neutrophils # 3.2 10 Normal 1.5-8.5 Lymph # 0.8 10 Low 1.5-5.0 Stephenson # 0.6 10 Normal 0.0-0.8 Eos # 0.4 10 Normal 0.0-0.5 Baso # 0.0 10 Normal 0.0-0.2 Istat Chem8+ Panel 10/28/2020 [facility] nter [address] [place] [address] [phone] iSTAT HCT 24.0 % Low 38.0-51.0 iSTAT Glucose 123 mg/dL High 70-105 iSTAT Sodium 143 mEq/L Normal 136-145 iSTAT Potassium 3.4 mEq/L Low 3.5-5.1 iSTAT CA++ 4.8 mg/dL Normal 4.5-5.3 iSTAT Chloride 106 mEq/L Normal 98-109 iSTAT Co2 28.0 MM/L High 23.0-27.0 iSTAT BUN 25 mg/dL Normal 8-26 iSTAT Creatinine 2.5 mg/dL High 0.6-1.3 CBC With Differential 10/28/2020 [facility] [address] [place] [address] [phone] White Blood Count 5.9 10 Normal 4.0-10.0 [...] 36.0-66.0 Lymph % 16.2 % Low 24.0-44.0 Stephenson % 10.1 % High 2.0-8.0 Eos % 7.2 % High 0.0-3.0 Baso % 0.5 % Normal 0.0-1.0 Immature Granulocyte % 0.3 % Normal 0-3.0 Nucleated Red Blood Cell % 0.0 % Normal 0-0 Neutrophils # 3.9 10 Normal 1.5-8.5 Lymph # 1.0 10 Low 1.5-5.0 Stephenson # 0.6 10 Normal 0.0-0.8 Eos # 0.4 10 Normal 0.0-0.5 Baso # 0.0 10 Normal 0.0-0.2 Prothrombin Time/Inr 10/28/2020 [facility] enter [address] [place] [address] [phone] Prothrombin Time 14.8 seconds High 12.5-14.3 Inr 1.13 Normal 25 Laboratory test finding 10/28/[address] [address] [phone] Partial Thromboplastin Time 43.9 seconds High 24 .2-38.5 Cardiac Marker Panel 10/28/2020 [facility] enter [address] [place] [address] [phone] CPK Creatine Phosphokinase 136 U/L Normal 39-30 8 CK-MB Value Mass 3.2 NG/ML Normal <3.6 MB/CK Relative Index 2.35 Normal < Or =4 26 Troponin I < 0.02 NG/ML Normal < 0.10 27 Liver Profile 10/28/2020 [facility] nter [address] [place] [address] [phone] Ast/Sgot 20 U/L Normal 7-37 Alt/SGPT 14 U/L Normal 12-78 Alkaline Phosphatase 99 U/L Normal 45-117 Bilirubin,Total 1.2 mg/dL High 0.2-1.0 Bilirubin,Direct 0.1 mg/dL Normal 0.0-0.2 Total Protein 7.3 GM/DL Normal 6.4-8.2 Albumin 2.1 GM/DL Low 3.2-5.2 Albumin/Globulin Ratio 0.4 Normal Basic Metabolic Profile 10/28/[address] [address] [phone] Glucose, Fasting 133 mg/dL High 70-100 Blood [...] mg/dL Normal 8.8-10.2 Laboratory test finding 10/28/[address] [id number] [phone] Lipase 315 U/L Normal 73-393 Thyroid Stimulating Hormone 1.750 uIU/ML Normal 0.358-3.740 Free T4 0.71 ng/dL Low 0.76-1.46 Type & Screen -Incl Blood Type,Yung,AB SC 10/28/[address] [address] [phone] Blood Type O POSITIVE Normal AB Screen (Indirect Sloan)Vis NEGATIVE Normal Laboratory test finding 10/28/[address] [address] [phone] Packed Cells TRANSFUSED PRODU <SEE NOTE> 29 [...] LITTLE GFR LEFT ESRD GFR <15 ON [employer] 4 NOTE: RESULT VERIFIED. 5 NOTE: RESULT VERIFIED. 6 100-125 mg/dL PRE-DIABET ES/FASTING >126 mg/dL DIABETES/FASTING 7 CHRONIC KIDNEY DISEASE STAGI NG PER NKF STAGE I & II GFR >= 60 NORMAL TO MILDLY DECREASED STAGE III GFR 30-59 MODERATELY DECREASED STAGE IV GFR 15-29 SEVERELY DECREASED STAGE V GFR <15 VERY LITTLE GFR LEFT ESRD GFR <15 ON [employer] 8 NOTE: CBC VERIFIED 9 100-125 mg/dL PRE-DIABET ES/FASTING >126 mg/dL DIABETES/FASTING 10 NOTE: RESULT VERIFIED. 11 NOTE: RESULT VERIFIED. 12 CHRONIC KIDNEY DISEASE STAGI NG PER NKF STAGE I & II GFR >= 60 NORMAL TO MILDLY DECREASED STAGE III GFR 30-59 MODERATELY DECREASED STAGE IV GFR 15-29 SEVERELY DECREASED STAGE V GFR <15 VERY LITTLE GFR LEFT ESRD GFR <15 ON [employer] HELPER 13 100-125 mg/dL PRE-DIABET ES/FASTING >126 mg/dL DIABETES/FASTING 14 NOTE: RESULT VERIFIED. 15 CHRONIC KIDNEY DISEASE STAGI NG PER NKF STAGE I & II GFR >= 60 NORMAL TO MILDLY DECREASED STAGE III GFR 30-59 MODERATELY DECREASED STAGE IV GFR 15-29 SEVERELY DECREASED STAGE V GFR <15 VERY LITTLE GFR LEFT ESRD GFR <15 ON [employer] HELPER 16 100-125 mg/dL PRE-DIABET ES/FASTING >126 mg/dL DIABETES/FASTING 17 CHRONIC KIDNEY DISEASE STAGI NG PER NKF STAGE I & II GFR >= 60 NORMAL TO MILDLY DECREASED STAGE III GFR 30-59 MODERATELY DECREASED STAGE IV GFR 15-29 SEVERELY DECREASED STAGE V GFR <15 VERY LITTLE GFR LEFT ESRD GFR <15 ON [employer] 18 NOTE: RESULT VERIFIED. 19 100-125 mg/dL PRE-DIABET ES/FASTING >126 mg/dL DIABETES/FASTING 20 CHRONIC KIDNEY DISEASE STAGI NG PER NKF STAGE I & II GFR >= 60 NORMAL TO MILDLY DECREASED STAGE III GFR 30-59 MODERATELY DECREASED STAGE IV GFR 15-29 SEVERELY DECREASED STAGE V GFR <15 VERY LITTLE GFR LEFT ESRD GFR <15 ON [employer]PER 21 Negative results do not prec lude [...] pathogens. DISCLAIMER: Testing was performed using the [employer] SARS-CoV-2 test. This test was developed and its performance characteristics determined by [employer]. This test has not been FDA cleared [...] Troponin I Reference Interva l for Siemens [place] LOCI: 99th Percentile= 0.00-0.045 ng/ml Risk Stratification: [...] Little GFR Left ESRD GFR <15 on [employer] 29 TRANSFUSED PRODUCT: PACKED C ELLS COUNT: 1 Procedures Date Code Description Status 03/03/2021 86652 Office/Outpatient Established Mo d MDM 30-39 Min Completed 12/06/2020 75946 Office/Outpatient Established Mo d MDM 30-39 Min Completed 11/05/2020 18177 Office/Outpatient Established Mo d MDM 30-39 Min Completed 08/16/2019 84116641 Colonoscopy Completed 08/01/2008 05158170 Colonoscopy Completed 03/06/2003 789805404 Bone Mineral Density Test Comple Um[place] Description No Information Available Encounters Type Date Location Provider Dx Diagnosis Office Visit 03/03/2021 2:30p [facility] ,[place] R19.7 Diarrhea, unspecified I12.9 Hypertensive chronic kidney disease w stg 1-4/unsp chr kdny N18.32 Chronic kidney disease, stag e 3b T84.53xD 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, subs B95.[address] inf ct causing dis classd elswhr I33.0 Acute and subacute infective endocarditis Office Visit 12/06/2020 10:20a [facility] colon,DO Z01.818 Encounter for other preprocedural examin ation Z96.651 Presence of right artificial knee joint T84.53xD 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, subs A49.01 Methicillin suscep staph inf ection, unsp site I33.0 Acute and subacute infective endocarditis I12.9 Hypertensive chronic kidney disease w stg 1-4/unsp chr kdny N18.32 Chronic kidney disease, stag e 3b E78.5 Hyperlipidemia, unspecified 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 Office Visit 11/05/2020 9:00a [facility],DO T84.53xA Infect/inflm reaction due to [...] E78.5 Hyperlipidemia, unspecified Abhay Cisneros,DO 12/06/2020 Z79.82 penitentiary (current) use of aspir in Paulette Cisneros,DO [...] ble Staphylococcus aureus infection, unspecified site Paulette Cisnerso,DO 11/05/2020 I12.9 Hypertensive chronic kidney dise ase with stage 1 through sta Paulette Cisneros,DO 11/05/2020 N18.32 Chronic kidney disease, stage 3b Paulette Cisneros DO 11/05/2020 D64.9 Anemia, unspecified Paultete Cisneros DO Plan of Treatment Future Appointment(s):* 04/28/2021 10:20 am - Lab Schedule at [facility] * 05/16/2021 3:00 pm - Reg Talbot [facility] 04/21/2021 - Reg Talbot DO* [...]
--- OUTSIDE RECORDS SUMMARY | 2021-05-09 10:12 | CCD | Continuity of Care Document ---
Author Author Hossein TILLMAN MD Organization Unknown Address [address] [place] [address] , [facility] [address] Phone [phone] Care Team Providers Care Regulatory Leader Name Role Phone Paulette Cisneros D.O.M [phone] Problems Active Problems Provider Date Essential hypertension [...] Available Procedures Date Code Description Status 04/25/2021 85349 Office/Outpatient Established SF MDM 10-19 Min Completed 04/09/2021 45569 Revise Total Knee Ar throplasty Femoral & Entire Tibial Component Completed 04/08/2021 71662 Office/Outpatient Established Lo w MDM 20-29 Min Completed 03/06/2021 01184 Office/Outpatient Established Mo d MDM 30-39 Min Completed 12/10/2020 04250 Remove Total Knee Prosthesis Com pleted 12/10/2020 39881 Insertion, Non-Biodegradable Nickolas g Delivery Implant Completed 11/29/2020 38575 Office/Outpatient Established Mo d MDM 30-39 Min [...] orthoped ic aftercare Office Visit 01/24/2021 11:00a [facility] David Tillman MD Z47.89 Encounter for other orthopedic aftercare T84.53xD 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, subs Office Visit 01/20/2021 1:00p Henry Tillman MD Z48.02 Encounter for removal of sutures T84.53xD 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, subs Z47.89 Encounter for other orthoped ic aftercare Office Visit 01/01/2021 11:00a [facility] Tillman MD T84.53xD 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, subs Office Visit 12/24/2020 9:30a Bahaiamrik Tillman MD T84.53xD Infect/inflm reaction due to [...] 1:00 pm - David Tillman MD at [facility] 04/25/2021 - David Tillman MD* Z96.651 [...]
--- OUTSIDE RECORDS SUMMARY | 2021-05-09 10:12 | CCD | Continuity of Care Document ---
Author Author Lab Schedule, Hossein Gutierrez Organization Unknown Address [address] [address] Phone Unavailable Care Team Providers Care Recording Studio Set Up Worker Name Role Phone Henry Home Hea AUTM [phone] Reg Reyes DO AUTM [phone] Problems Active Problems Provider Date Osteoarthritis Thea [...] Given 04/30/2019 Influenza,Unspecified U-Flu Given 05/24/2018 Influenza,Unspecified 27997 Given 08/18/2013 Pneumovax 23 99051 Given 04/26/2008 Influenza Virus Vaccine 32761 Refused 05/25/2017 Influenza Vaccin e Quadrivalent Preser/Antibiotic [...] Date Facility Test Result H/L Range Note Complete Blood Count 04/21/2021 [facility] Court Attendant: Dr Bruce Reyes [place], [place] [address] [phone] WBC 9.3 x10*3/UL 4.1 - 10.9 RBC 3.20 x10*6/UL Low 4.20 - 6.30 Hemoglobin 10.3 g/dL Low 12.0 - 18.0 1 Hematocrit 29.9 % Low 37.0 - 51.0 [...] 2.0 - 7.8 Laboratory test finding 04/21/2021 [facility] [employer] [facility] Court Attendant: [place] [address] [phone] Sed Rate 57 mm/hr High 0 - 15 Basic Metabolic Panel 04/21/2021 [facility] Court Attendant: [place] [address] [phone] Glucose 81 mg/dL 74 - 99 2 BUN 34 mg/dL High 7 - 18 Creatinine 2.6 mg/dL High 0.6 - 1.3 Sodium 138 mEq/L 136 - 145 Potassium 5.3 mEq/L High 3.5 - 5.1 3 Chloride 103 mEq/L 98 - 107 Carbon Dioxide 27 mEq/L 21 - 32 Calcium 9.7 mg/dL 8.5 - 10.1 GFR 24 mL/min Low >60 GFR 29 mL/min Low >60 4 Laboratory test finding 04/21/2021 [place] [id number] [phone] C Reactive Protein Quantitativ 2.11 mg/dL High 0 .00-0.30 Total Iron Binding Capacit 04/21/[address] [address] [phone] Iron (Fe) 53 g/dL Low 65-175 Total Iron Binding Capacity 220 g/dL Low 250-450 Percent Saturation 24.1 % Normal 19.7-50.0 Laboratory test finding 04/21/2021 [place] [address] [place] [address] [phone] Ferritin 188 NG/ML Normal 26-388 Complete Blood Count 03/25/2021 [facility] [employer] [facility] [employer] [facility] Court Attendant: [place] [address] [phone] WBC 5.0 x10*3/UL 4.1 - 10.9 RBC [...] 2.0 - 7.8 Comprehensive Chem Profile 03/25/[address] [facility] [address] Attendant: [place] [address] [phone] Glucose 91 mg/dL 74 - 99 6 [...] Low >60 7 Laboratory test finding 03/07/[address] [address] [phone] C Reactive Protein Quantitativ 2.78 mg/dL High 0 .00-0.30 CBC With Differential 03/07/[address] [address] [phone] White Blood Count 5.3 10 Normal 4.0-10.0 [...] 36.0-66.0 Lymph % 26.6 % Normal 24.0-44.0 Dillon % 11.0 % High 2.0-8.0 Eos % 8.7 % High 0.0-3.0 Baso % 0.2 % Normal 0.0-1.0 Immature Granulocyte % 0.6 % Normal 0-3.0 Nucleated Red Blood Cell % 0.0 % Normal 0-0 Neutrophils # 2.8 10 Normal 1.5-8.5 Lymph # 1.4 10 Low 1.5-5.0 Dillon # 0.6 10 Normal 0.0-0.8 Eos # 0.5 10 Normal 0.0-0.5 Baso # 0.0 10 Normal 0.0-0.2 Laboratory test finding 03/07/2021 [facility] [address] [place], [place] [address] [phone] Erythrocyte Sedimentation Rate 106 mm/hr High 0 -20 Complete Blood Count 03/03/2021 [facility] [employer] [facility] [employer] [facility] [employer] pc Court Attendant: [place] [address] [phone] WBC 5.9 x10*3/UL 4.1 - 10.9 8 [...] 2.0 - 7.8 Comprehensive Chem Profile 03/03/[address] [facility] [address] Attendant: [place] [address] [phone] Glucose 102 mg/dL High 74 - 99 [...] Low >60 12 Basic Metabolic Panel 11/15/2020 [facility] pc Court Attendant: [place] [address] [phone] Glucose 107 mg/dL High 74 - 99 [...] Low >60 15 Basic Metabolic Panel 11/11/2020 [facility] jenny, pc Court Attendant: [place] [address] [phone] Glucose 134 mg/dL High 74 - 99 [...] Low >60 17 Complete Blood Count 11/05/2020 [facility] Court Attendant: [place] [address] [phone] WBC 5.3 x10*3/UL 4.1 - 10.9 RBC [...] 2.0 - 7.8 Basic Metabolic Panel 11/05/2020 [facility] jenny pc Court Attendant: Dr [place] [address] [phone] Glucose 121 mg/dL High 74 - 99 [...] 20 Influenza A/B RSV Covid Amp 10/28/2020 [place] [id number] [phone] Influenza A Amplification NEGATIVE Normal Negati ve 21 Influenza B Amplification NEGATIVE Normal Negative 22 RSV Amplification NEGATIVE Normal Negative 23 Sars Covid-19 Amplification NEGATIVE Normal Negative 24 CBC With Differential 10/28/[address] [address] [phone] White Blood Count 5.0 10 Normal 4.0-10.0 [...] 36.0-66.0 Lymph % 16.4 % Low 24.0-44.0 Dillon % 11.1 % High 2.0-8.0 Eos % 7.3 % High 0.0-3.0 Baso % 0.4 % Normal 0.0-1.0 Immature Granulocyte % 0.6 % Normal 0-3.0 Nucleated Red Blood Cell % 0.0 % Normal 0-0 Neutrophils # 3.2 10 Normal 1.5-8.5 Lymph # 0.8 10 Low 1.5-5.0 Dillon # 0.6 10 Normal 0.0-0.8 Eos # 0.4 10 Normal 0.0-0.5 Baso # 0.0 10 Normal 0.0-0.2 Istat Chem8+ Panel 10/28/2020 [facility] nter [address] [place] [address] [phone] iSTAT HCT 24.0 % Low 38.0-51.0 iSTAT Glucose 123 mg/dL High 70-105 iSTAT Sodium 143 mEq/L Normal 136-145 iSTAT Potassium 3.4 mEq/L Low 3.5-5.1 iSTAT CA++ 4.8 mg/dL Normal 4.5-5.3 iSTAT Chloride 106 mEq/L Normal 98-109 iSTAT Co2 28.0 MM/L High 23.0-27.0 iSTAT BUN 25 mg/dL Normal 8-26 iSTAT Creatinine 2.5 mg/dL High 0.6-1.3 CBC With Differential 10/28/2020 [facility] [address] [place] [address] [phone] White Blood Count 5.9 10 Normal 4.0-10.0 [...] 36.0-66.0 Lymph % 16.2 % Low 24.0-44.0 Dillon % 10.1 % High 2.0-8.0 Eos % 7.2 % High 0.0-3.0 Baso % 0.5 % Normal 0.0-1.0 Immature Granulocyte % 0.3 % Normal 0-3.0 Nucleated Red Blood Cell % 0.0 % Normal 0-0 Neutrophils # 3.9 10 Normal 1.5-8.5 Lymph # 1.0 10 Low 1.5-5.0 Dillon # 0.6 10 Normal 0.0-0.8 Eos # 0.4 10 Normal 0.0-0.5 Baso # 0.0 10 Normal 0.0-0.2 Prothrombin Time/Inr 10/28/2020 [facility] enter [address] [place] [address] [phone] Prothrombin Time 14.8 seconds High 12.5-14.3 Inr 1.13 Normal 25 Laboratory test finding 10/28/2020 [facility] [address] [place] [id number] [phone] Partial Thromboplastin Time 43.9 seconds High 24 .2-38.5 Cardiac Marker Panel 10/28/2020 [facility] [address] [place] [address] [phone] CPK Creatine Phosphokinase 136 U/L Normal 39-30 8 CK-MB Value Mass 3.2 NG/ML Normal <3.6 MB/CK Relative Index 2.35 Normal < Or =4 26 Troponin I < 0.02 NG/ML Normal < 0.10 27 Liver Profile 10/28/2020 [facility] nter [address] [place] [address] [phone] Ast/Sgot 20 U/L Normal 7-37 Alt/SGPT 14 U/L Normal 12-78 Alkaline Phosphatase 99 U/L Normal 45-117 Bilirubin,Total 1.2 mg/dL High 0.2-1.0 Bilirubin,Direct 0.1 mg/dL Normal 0.0-0.2 Total Protein 7.3 GM/DL Normal 6.4-8.2 Albumin 2.1 GM/DL Low 3.2-5.2 Albumin/Globulin Ratio 0.4 Normal Basic Metabolic Profile 10/28/[address] [address] [phone] Glucose, Fasting 133 mg/dL High 70-100 Blood [...] mg/dL Normal 8.8-10.2 Laboratory test finding 10/28/[address] 6439054 [phone] Lipase 315 U/L Normal 73-393 Thyroid Stimulating Hormone 1.750 uIU/ML Normal 0.358-3.740 Free T4 0.71 ng/dL Low 0.76-1.46 Type & Screen -Incl Blood Type,Yung,AB SC 10/28/[address] [address] [phone] Blood Type O POSITIVE Normal AB Screen (Indirect Sloan)Vis NEGATIVE Normal Laboratory test finding 10/28/[address] [address] [phone] Packed Cells TRANSFUSED PRODU <SEE NOTE> 29 1 NOTE: RESULT VERIFIED. 2 100-125 mg/dL PRE-DIABET ES/FASTING >126 mg/dL DIABETES/FASTING 3 NOTE: RESULT VERIFIED. NO VISIBLE HEMOLYSIS. 4 CHRONIC KIDNEY DISEASE STAGI NG PER NKF STAGE I & II GFR >= 60 NORMAL TO MILDLY DECREASED STAGE III GFR 30-59 MODERATELY DECREASED STAGE IV GFR 15-29 SEVERELY DECREASED STAGE V GFR <15 VERY LITTLE GFR LEFT ESRD GFR <15 ON [employer] 5 NOTE: RESULT VERIFIED. 6 100-125 mg/dL PRE-DIABET ES/FASTING >126 mg/dL DIABETES/FASTING 7 CHRONIC KIDNEY DISEASE STAGI NG PER NKF STAGE I & II GFR >= 60 NORMAL TO MILDLY DECREASED STAGE III GFR 30-59 MODERATELY DECREASED STAGE IV GFR 15-29 SEVERELY DECREASED STAGE V GFR <15 VERY LITTLE GFR LEFT ESRD GFR <15 ON [employer] SUPERVISOR 8 NOTE: CBC VERIFIED 9 100-125 mg/dL PRE-DIABET ES/FASTING >126 mg/dL DIABETES/FASTING 10 NOTE: RESULT VERIFIED. 11 NOTE: RESULT VERIFIED. 12 CHRONIC KIDNEY DISEASE STAGI NG PER NKF STAGE I & II GFR >= 60 NORMAL TO MILDLY DECREASED STAGE III GFR 30-59 MODERATELY DECREASED STAGE IV GFR 15-29 SEVERELY DECREASED STAGE V GFR <15 VERY LITTLE GFR LEFT ESRD GFR <15 ON [employer] SUPERVISOR 13 100-125 mg/dL PRE-DIABET ES/FASTING >126 mg/dL DIABETES/FASTING 14 NOTE: RESULT VERIFIED. 15 CHRONIC KIDNEY DISEASE STAGI NG PER NKF STAGE I & II GFR >= 60 NORMAL TO MILDLY DECREASED STAGE III GFR 30-59 MODERATELY DECREASED STAGE IV GFR 15-29 SEVERELY DECREASED STAGE V GFR <15 VERY LITTLE GFR LEFT ESRD GFR <15 ON [employer] SUPERVISOR 16 100-125 mg/dL PRE-DIABET ES/FASTING >126 mg/dL DIABETES/FASTING 17 CHRONIC KIDNEY DISEASE STAGI NG PER NKF STAGE I & II GFR >= 60 NORMAL TO MILDLY DECREASED STAGE III GFR 30-59 MODERATELY DECREASED STAGE IV GFR 15-29 SEVERELY DECREASED STAGE V GFR <15 VERY LITTLE GFR LEFT ESRD GFR <15 ON [employer] SUPERVISOR 18 NOTE: RESULT VERIFIED. 19 100-125 mg/dL PRE-DIABET ES/FASTING >126 mg/dL DIABETES/FASTING 20 CHRONIC KIDNEY DISEASE STAGI NG PER NKF STAGE I & II GFR >= 60 NORMAL TO MILDLY DECREASED STAGE III GFR 30-59 MODERATELY DECREASED STAGE IV GFR 15-29 SEVERELY DECREASED STAGE V GFR <15 VERY LITTLE GFR LEFT ESRD GFR <15 ON [employer] SUPERVISOR 21 Negative results do not prec lude [...] pathogens. DISCLAIMER: Testing was performed using the [employer] SARS-CoV-2 test. This test was developed and its performance characteristics determined by [employer]. This test has not been FDA cleared [...] 27 Troponin I Reference Interva l for [employer] LOCI: 99th Percentile= 0.00-0.045 ng/ml Risk Stratification: [...] Little GFR Left ESRD GFR <15 on [employer] SUPERVISOR 29 TRANSFUSED PRODUCT: PACKED C ELLS COUNT: 1 Procedures Date Code Description Status 03/03/2021 32927 Office/Outpatient Established Mo d MDM 30-39 Min Completed 12/06/2020 97747 Office/Outpatient Established Mo d MDM 30-39 Min Completed 11/05/2020 73915 Office/Outpatient Established Mo d MDM 30-39 Min Completed 08/16/2019 18643102 Colonoscopy Completed 08/01/2008 29051996 Colonoscopy Completed 03/06/2003 [id number] Bone Mineral Density Test Comple [employer] Description No Information Available Encounters Type Date Location Provider Dx Diagnosis Office Visit 03/03/2021 2[facility]p [facility] R19.7 Diarrhea, unspecified I12.9 Hypertensive chronic kidney disease w stg 1-4/unsp chr kdny N18.32 Chronic kidney disease, stag e 3b T84.53xD 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, subs B95.[address] inf ct causing dis classd elswhr I33.0 Acute and subacute infective endocarditis Office Visit 12/06/2020 10:20a [facility], Tariq rosales,DO Z01.818 Encounter for other preprocedural examin ation Z96.651 Presence of right artificial knee joint T84.53xD 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, subs A49.01 Methicillin suscep staph inf ection, unsp site I33.0 Acute and subacute infective endocarditis I12.9 Hypertensive chronic kidney disease w stg 1-4/unsp chr kdny N18.32 Chronic kidney disease, stag e 3b E78.5 Hyperlipidemia, unspecified Z79.82 detention (current) use of a spirin Office Visit 11/05/2020 9:00a [facility], Tariq rosales,DO T84.53xA Infect/inflm reaction due [...] N18.4 Chronic kidney disease stage 4 C hristkena Reyes, DO 04/21/2021 D64.9 Anemia, unspecified Reg Reyes, DO 03/25/2021 Z01.810 Encounter for preprocedural card iovascular examination Reg Reyes, DO 03/25/2021 T84.53xD Infection and inflam matory reaction due to internal right knee prosthesis, subsequent encounter Reg Reyes, DO 03/25/2021 A49.01 Methicillin suscepti ble Staphylococcus aureus infection, unspecified site Maokena Reyes, DO 03/25/2021 I12.9 Hypertensive chronic kidney disease with stage 1 through stage 4 chronic kidney disease, or unspecified chronic kidney disease Maokena Josephlogg, DO 03/03/2021 R19.7 Diarrhea Paulette Cisneros,DO 03/03/2021 [...] Z01.818 Encounter for other preprocedura l examination Pauletteadrian Cisneros,DO 12/06/2020 Z96.651 Presence of right artificial [...] E78.5 Hyperlipidemia, unspecified Abhay Cisneros,DO 12/06/2020 Z79.82 ferry terminal agent (current) use of aspir in Paulette Cisneros,DO 11/15/2020 I12.9 Hypertensive chronic kidney disease with stage 1 through stage 4 chronic kidney disease, or unspecified chronic kidney disease Pauletteadrian Cisneros,DO 11/15/2020 I12.9 Hypertensive chronic kidney disease with stage 1 through stage 4 chronic kidney disease, or unspecified chronic kidney disease Lab Schedule 11/15/2020 N18.32 Chronic kidney disease, stage 3b Paulette Cisneros,DO 11/15/2020 N18.32 Chronic kidney disease, stage 3b Lab Schedule 11/11/2020 I12.9 Hypertensive chronic kidney disease with stage 1 through stage 4 chronic kidney disease, or unspecified chronic kidney disease Paulette Amelia,DO 11/11/2020 I12.9 Hypertensive chronic kidney dise ase with stage 1 through sta Lab Schedule 11/11/2020 N18.32 Chronic kidney disease, stage 3b Paulette Cisneros,DO 11/11/2020 N18.32 Chronic kidney disease, stage 3b Lab Schedule 11/05/2020 T84.53xA Infection and inflam matory reaction due to internal right knee prosthesis, initial encounter Paulette Amelia,DO 11/05/2020 Z96.651 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 Paulette Amelia,DO 11/05/2020 L03.115 Cellulitis of right lower limb L marisol Amelia,DO 11/05/2020 I33.0 Acute and subacute infective end ocarditis Paulette Maelia,DO 11/05/2020 A49.01 Methicillin suscepti ble Staphylococcus aureus infection, unspecified site Paulette Tabaresgs,DO 11/05/2020 I12.9 Hypertensive chronic kidney dise ase with stage 1 through sta Paulette Amelia,DO 11/05/2020 N18.32 Chronic kidney disease, stage 3b Paulette Cisneros,DO 11/05/2020 D64.9 Anemia, unspecified Paulette Cisneros, Plan of Treatment Future Appointment(s):* 05/16/2021 3:00 pm - Reg Reyes DO at [facility] 04/21/2021 - Reg Reyes DO* [...]
--- OUTSIDE RECORDS SUMMARY | 2021-05-09 10:12 | CCD ---
Continuity of Care Document (CCD) Created on: 04/21/2021 Jac Hossein External Reference #: [id number] : [id number] Sex: Male Author Author Hossein TILLMAN MD Organization Unknown Address [address] [place] [address] , [facility] [place] [address] Phone [phone] Care Team Providers Care Major Case Detective Name Role Phone Paulette Cisneros D.O.M [phone] Problems Active Problems Provider Date Essential hypertension [...] as needed for pain after surgery Unknown History Medications Hibiclens 4% Liquid 5 days price pply 473ml David Tillman MD 11/30/2020 - 12/12/2020 Immunizations Description No Information Available Vital Signs Date Vital Result Comment 04/14/2021 2:24pm Body Temperature 97.3 F 04/08/2021 12:52pm BP Systolic 134 mmHg BP Diastolic 62 mmHg O2 % BldC Oximetry 99 % Respiratory Rate 17 /min Body Temperature 97.6 F Height 64 inches 5'4" [place] Body Weight 130 lb Results Description No Information Available Procedures Date Code Description Status 04/09/2021 59617 Revise Total Knee Ar throplasty Femoral & Entire Tibial Component Completed 04/08/2021 13848 Office/Outpatient Established Lo w MDM 20-29 Min Completed 03/06/2021 21908 Office/Outpatient Established Mo d MDM 30-39 Min Completed 12/10/2020 91160 Remove Total Knee Prosthesis Com pleted 12/10/2020 30598 Insertion, Non-Biodegradable Nickolas g Delivery Implant Completed 11/29/2020 54520 Office/Outpatient Established Mo d MDM 30-39 Min Completed Medical Devices Description No Information Available Encounters Type Date Location Provider Dx Diagnosis Office Visit 04/14/2021 2:30p [facility] David Tillman MD Z96.651 Presence of right artificial knee joint T14.90xA Injury, unspecified, initial encounter Z47.89 Encounter for other orthoped ic aftercare Office Visit 04/08/2021 1:00p Henry Tillman MD T84.53xD 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, subs Office Visit 03/06/2021 10:00a [facility] David Tillman MD T84.53xA Infect/inflm reaction due [...] prosth, subs Office Visit 01/20/2021 1:00p [facility] David Tillman MD Z48.02 Encounter for removal of [...] prosth, init Assessments Date Code Description Provider 04/14/2021 Z96.651 Presence of right artificial kne [...] Tillman MD Plan of Treatment Future Appointment(s):* 04/25/2021 9:30 am - David Tillman MD at [facility] 04/14/2021 - David Tillman MD* Z96.651 Presence of right artificial knee joint* New Labs:* CBC With Differential, Ordered: 04/14/21 * T14.90xA Wound * Z47.89 Encounter for other orthopedic aftercare Functional Status Functional Condition Comment Date Status Rolling walker is used to ambulate Active Brace knee immobilizer right knee Act tristan Mental Status Description No Information Available Referrals Refer to Reason for Referral Status Appt Date David Tillman M.D. hospital f/u. prosthetic joint infection rt knee. Closed 10/16/2020 [facility] [address] , [facility] [place] [place] [address] [phone]
--- OUTSIDE RECORDS SUMMARY | 2021-05-09 10:12 | CCD | Continuity of Care Document ---
Author Author oHssein TILLMAN MD Organization Unknown Address [address] [place] [address] , [facility] [place] [address] Phone [phone] Care Team Providers Care Employment Supervisor Name Role Phone Paulette Cisneros D.O.M [phone] Problems Active Problems Provider Date Essential hypertension [...] Available Procedures Date Code Description Status 04/25/2021 40485 Office/Outpatient Established SF MDM 10-19 Min Completed 04/09/2021 88563 Revise Total Knee Ar throplasty Femoral & Entire Tibial Component Completed 04/08/2021 88118 Office/Outpatient Established Lo w MDM 20-29 Min Completed 03/06/2021 99242 Office/Outpatient Established Mo d MDM 30-39 Min Completed 12/10/2020 10881 Remove Total Knee Prosthesis Com pleted 12/10/2020 99602 Insertion, Non-Biodegradable Nickolas g Delivery Implant Completed 11/29/2020 50429 Office/Outpatient Established Mo d MDM 30-39 Min [...] orthoped ic aftercare Office Visit 01/24/2021 11:00a [facility] David Tillman MD Z47.89 Encounter for other orthopedic aftercare T84.53xD 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, subs Office Visit 01/20/2021 1:00p Henry Tillman MD Z48.02 Encounter for removal of sutures T84.53xD 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, subs Z47.89 Encounter for other orthoped ic aftercare Office Visit 01/01/2021 11:00a [facility] MD T84.53xD 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, subs Office Visit 12/24/2020 9:30a [facility] MD T84.53xD Infect/inflm reaction due to [...] 1:00 pm - David Tillman MD at [facility] 04/25/2021 - David Tillman MD* Z96.651 [...]
--- OUTSIDE RECORDS SUMMARY | 2021-05-09 10:12 | CCD | Continuity of Care Document ---
Author Author Hossein TILLMAN MD Organization Unknown Address [address] [place] [address] , [facility] [place] [address] Phone [phone] Care Team Providers Care Physician General Practice Name Role Phone Paulette Cisneros D.O.M [phone] Problems Active Problems Provider Date Essential hypertension [...] Available Procedures Date Code Description Status 04/25/2021 43737 Office/Outpatient Established SF MDM 10-19 Min Completed 04/09/2021 57189 Revise Total Knee Ar throplasty Femoral & Entire Tibial Component Completed 04/08/2021 03367 Office/Outpatient Established Lo w MDM 20-29 Min Completed 03/06/2021 26634 Office/Outpatient Established Mo d MDM 30-39 Min Completed 12/10/2020 17826 Remove Total Knee Prosthesis Com pleted 12/10/2020 81281 Insertion, Non-Biodegradable Nickolas g Delivery Implant Completed 11/29/2020 49596 Office/Outpatient Established Mo d MDM 30-39 Min [...] orthoped ic aftercare Office Visit 01/24/2021 11:00a [facility] David Tillman MD Z47.89 Encounter for other orthopedic aftercare T84.53xD 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, subs Office Visit 01/20/2021 1:00p Henry Tillman MD Z48.02 Encounter for removal of sutures T84.53xD 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, subs Z47.89 Encounter for other orthoped ic aftercare Office Visit 01/01/2021 11:00a [facility] MD T84.53xD 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, subs Office Visit 12/24/2020 9:30a [facility] Tillman MD T84.53xD Infect/inflm reaction due to [...] 1:00 pm - David Tillman MD at [facility] 04/25/2021 - David Tillman MD* Z96.651 Presence [...]
--- OUTSIDE RECORDS SUMMARY | 2021-05-09 10:12 | CCD | Continuity of Care Document ---
Author Author Hossein TILLMAN MD Organization Unknown Address [address] [place] [address] , [facility] [place] [address] Phone [phone] Care Team Providers Care Millinery Worker Name Role Phone Paulette Cisneros D.O.M [phone] Problems Active Problems Provider Date Essential hypertension [...] Available Procedures Date Code Description Status 04/25/2021 80356 Office/Outpatient Established SF MDM 10-19 Min Completed 04/09/2021 13305 Revise Total Knee Ar throplasty Femoral & Entire Tibial Component Completed 04/08/2021 44270 Office/Outpatient Established Lo w MDM 20-29 Min Completed 03/06/2021 48108 Office/Outpatient Established Mo d MDM 30-39 Min Completed 12/10/2020 39376 Remove Total Knee Prosthesis Com pleted 12/10/2020 66231 Insertion, Non-Biodegradable Nickolas g Delivery Implant Completed 11/29/2020 91548 Office/Outpatient Established Mo d MDM 30-39 Min [...] orthoped ic aftercare Office Visit 01/24/2021 11:00a [facility] David Tillman MD Z47.89 Encounter for other orthopedic aftercare T84.53xD 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, subs Office Visit 01/20/2021 1:00p Henry Tillman MD Z48.02 Encounter for removal of sutures T84.53xD 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, subs Z47.89 Encounter for other orthoped ic aftercare Office Visit 01/01/2021 11:00a [facility] MD T84.53xD 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, subs Office Visit 12/24/2020 9:30a [facility] MD T84.53xD Infect/inflm reaction due to [...] 1:00 pm - David Tillman MD at [facility] 04/25/2021 - David Tillman MD* Z96.651 [...]
--- OUTSIDE RECORDS SUMMARY | 2021-05-09 10:12 | CCD | Continuity of Care Document ---
Author Author Hossein TILLMAN MD Organization Unknown Address [address] [place] [address] , [facility] [place] [address] Phone [phone] Care Team Providers Care Developer Evangelist Name Role Phone Paulette Cisneros D.O.M [phone] Problems Active Problems Provider Date Essential hypertension [...] Temperature 97.6 F Height 64 inches 5'4" [place] Body Weight 130 lb Results Description No Information Available Procedures Date Code Description Status 04/14/2021 03729 Office/Outpatient Established Mo d MDM 30-39 Min Completed 04/09/2021 89222 Revise Total Knee Ar throplasty Femoral & Entire Tibial Component Completed 04/08/2021 04679 Office/Outpatient Established Lo w MDM 20-29 Min Completed 03/06/2021 66810 Office/Outpatient Established Mo d MDM 30-39 Min Completed 12/10/2020 90928 Remove Total Knee Prosthesis Com pleted 12/10/2020 91792 Insertion, Non-Biodegradable Nickolas g Delivery Implant Completed 11/29/2020 23985 Office/Outpatient Established Mo d MDM 30-39 Min Completed 10/16/2020 32803 Office/Outpatient New Low MDM 30 -44 Minutes Completed Medical Devices Description No Information Available Encounters Type Date Location Provider Dx Diagnosis Office Visit 04/14/2021 2:30p Henry Tillman MD Z96.641 Presence of right artificial hip joint T14.90xA Injury, unspecified, initial encounter Office Visit 04/08/2021 1:00p Henry Tillman MD T84.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, subs Office Visit 03/06/2021 10:00a Henry iTllman MD T84.53xA 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, init Office Visit 02/24/2021 10:30a Henry Tillman MD T84.53xD 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, subs Z47.89 Encounter for other orthoped ic aftercare Office Visit 01/24/2021 11:00a Henry Tillman MD Z47.89 Encounter for other orthopedic aftercare T84.53xD 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, subs Office Visit 01/20/2021 1:00p [facility] David Tillman MD Z48.02 Encounter for removal of sutures T84.53xD 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, subs Z47.89 Encounter for other orthoped ic aftercare Office Visit 01/01/2021 11:00a [facility] David Tillman MD T84.53xD 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, subs Office Visit 12/24/2020 9:30a [facility] David Tillman MD T84.53xD 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, subs Z48.02 Encounter for removal of sut ures Office Visit 11/29/2020 10:30a [facility] David Tillman MD T84.59xA Infect/inflm reaction due to oth internal joint prosth, init Office Visit 10/16/2020 9:00a [facility] David Tillman MD T84.53xD 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, subs Assessments Date Code Description Provider 04/14/2021 Z96.641 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 There were no significant concerns about the wound at this time. He will continue with his home therapy. The dressing will remain in position. The patient was advised not to turn it off and on. The patient will be contacted on to see how he is doing to set an appointment for follow-up either late on afternoon if there are any concerns versus keeping his 2-week follow- up appointment. He was provided with additional dressing materials as needed * Follow up:* Patient will be contacted on to see how the wound VAC is doing and follow-up will be determined at that point. Either the patient will follow up afternoon for evaluation of the wound VAC versus follow-up as scheduled at his 2-week follow-up. * T14.90xA Wound Functional Status Functional Condition Comment Date Status Rolling walker is used to ambulate Active Brace knee immobilizer right knee Act tristan Mental Status Description No Information Available Referrals Refer to Reason for Referral Status Appt Date David Tillman M.D. hospital f/u. prosthetic joint infection rt knee. Closed 10/16/2020 [facility] [address] , [facility] [place] [address] [phone]
--- OUTSIDE RECORDS SUMMARY | 2021-05-09 10:12 | CCD | Continuity of Care Document ---
Author Author Hossein TILLMAN MD Organization Unknown Address [address] [place] [address] , [place] [address] Phone [phone] Care Team Providers Care Pipe Bender Name Role Phone Paulette Cisneros D.O.M [phone] Problems Active Problems Provider Date Essential hypertension [...] Available Procedures Date Code Description Status 04/25/2021 36144 Office/Outpatient Established SF MDM 10-19 Min Completed 04/09/2021 94791 Revise Total Knee Ar throplasty Femoral & Entire Tibial Component Completed 04/08/2021 76747 Office/Outpatient Established Lo w MDM 20-29 Min Completed 03/06/2021 02809 Office/Outpatient Established Mo d MDM 30-39 Min Completed 12/10/2020 99879 Remove Total Knee Prosthesis Com pleted 12/10/2020 79996 Insertion, Non-Biodegradable Nickolas g Delivery Implant Completed 11/29/2020 87856 Office/Outpatient Established Mo d MDM 30-39 Min [...] orthoped ic aftercare Office Visit 01/24/2021 11:00a [facility] David Tillman MD Z47.89 Encounter for other orthopedic aftercare T84.53xD 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, subs Office Visit 01/20/2021 1:00p Henry Tillman MD Z48.02 Encounter for removal of sutures T84.53xD 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, subs Z47.89 Encounter for other orthoped ic aftercare Office Visit 01/01/2021 11:00a [facility] MD T84.53xD 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, subs Office Visit 12/24/2020 9:30a [facility] Tillman MD T84.53xD Infect/inflm reaction due to [...] 1:00 pm - David Tillman MD at [facility] 04/25/2021 - David Tillman MD* [...]
--- OUTSIDE RECORDS SUMMARY | 2021-05-09 10:13 | CCD | Continuity of Care Document ---
Author Author Hossein TILLMAN MD Organization Unknown Address [address] [place] [address] , [facility] [place] [address] Phone [phone] Care Team Providers Care Mailroom Supervisor Name Role Phone AmeliaPaulette D.O. AUTM [phone] Problems Active Problems Provider Date Essential hypertension David Tillman MD Onset: 11/29/2020 Social History Type Date Description Comments Sex Unknown ETOH Use Denies alcohol use Tobacco Use Start: Unknown Denies Smoking Recreational Drug Use Denies Drug Use Smoking Status Reviewed: 04/08/21 Denies Smoking Allergies, Adverse Reactions, Alerts Description No Known Drug Allergies Medications Active Medications SIG Qnty Indications Ordering Provide r Date Atorvastatin Calcium 40mg Tablets Take 1 Tablet [...] by mouth every day after meals Unknown History Medications Hibiclens 4% Liquid 5 days price pply 473ml David Tillman MD 11/30/2020 - 12/12/2020 Tramadol HCL 50mg Tablets 1 tab by mouth twice a day as needed, for pain 14tabs David Tillman MD 10/11/2020 - 12/13/2020 Immunizations Description No Information Available Vital Signs Date Vital Result Comment 04/08/2021 12:52pm BP Systolic 134 mmHg BP Diastolic 62 mmHg O2 % BldC Oximetry 99 % Respiratory Rate 17 /min Body Temperature 97.6 F Height 64 inches 5'4" [place] Body Weight 130 lb 03/06/2021 9:56am Body Temperature 97.4 F Height 64 inches 5'4" Weight 140.00 lb BMI (Body Mass Index) 24.0 kg/m2 [place] Body Weight 130 lb Weight 63.504 kg BSA (Body Surface Area) 1.68 m2 Results Description No Information Available Procedures Date Code Description Status 04/08/2021 84486 Office/Outpatient Established Lo w MDM 20-29 Min Completed 03/06/2021 17052 Office/Outpatient Established Mo d MDM 30-39 Min Completed 12/10/2020 92625 Remove Total Knee Prosthesis Com pleted 12/10/2020 11041 Insertion, Non-Biodegradable Nickolas g Delivery Implant Completed 11/29/2020 67372 Office/Outpatient Established Mo d MDM 30-39 Min Completed 10/16/2020 86798 Office/Outpatient New Low MDM 30 -44 Minutes Completed Medical Devices Description No Information Available Encounters Type Date Location Provider Dx Diagnosis Office Visit 04/08/2021 1:00p [facility] David Tillman MD T84.53xD 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, subs Office Visit 03/06/2021 10:00a [facility] David Tillman MD T84.53xA 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, init Office Visit 02/24/2021 10:30a [facility] David Tillman MD T84.53xD 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, subs Z47.89 Encounter for other orthoped ic aftercare Office Visit 01/24/2021 11:00a [facility] David Tillman MD Z47.89 Encounter for other orthopedic aftercare T84.53xD 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, subs Office Visit 01/20/2021 1:00p [facility] David Tillman MD Z48.02 Encounter for removal of sutures T84.53xD 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, subs Z47.89 Encounter for other orthoped ic aftercare Office Visit 01/01/2021 11:00a [facility] David Tillman MD T84.53xD 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, subs Office Visit 12/24/2020 9:30a [facility] David Tillman MD T84.53xD 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, subs Z48.02 Encounter for removal of sut ures Office Visit 11/29/2020 10:30a [facility] David Tillman MD T84.59xA Infect/inflm reaction due to oth internal joint prosth, init Office Visit 10/16/2020 9:00a Henry Tillman MD T84.53xD 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, subs Assessments Date Code Description Provider 04/08/2021 T84.53xD Infection and inflam matory reaction [...] Tillman MD Plan of Treatment Future Appointment(s):* 04/09/2021 11:30 am - David Tillman MD at [facility] * 04/25/2021 9:30 am - David Tillman MD at [facility] 04/08/2021 - David Tillman MD* T84.53xD Infection and inflammatory reaction due to internal right knee prosthesis, subsequent encounter* Comments:* The patient will be admitted after surgery tomorrow for a revision stage II 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 The plan will be for stage II revision versus antibiotic spacer depending on intraoperative findings for infection.He has been consented previously for the procedure. We will see him tomorrow for his surgery. * Follow up:* Booked for surgery 04/09/2021 Functional Status Functional Condition Comment Date Status Rolling walker is used to ambulate Active Brace knee immobilizer right knee Act tristan Mental Status Description No Information Available Referrals Refer to Reason for Referral Status Appt Date David Tillman M.D. hospital f/u. prosthetic joint infection rt knee. Closed 10/16/2020 [facility] [address] , [facility] [place] [place] [address] [phone]
--- OUTSIDE RECORDS SUMMARY | 2021-05-09 10:13 | CCD | Continuity of Care Document ---
Author Author Hossein TILLMAN MD Organization Unknown Address [address] [place] [address] , [facility] [place] [place] [address] Phone [phone] Care Team Providers Care Diesel Truck Driver Name Role Phone Paulette Cisneros D.O.M [phone] Problems Active Problems Provider Date Essential hypertension [...] Temperature 97.6 F Height 64 inches 5'4" [place] Body Weight 130 lb Results Description No Information Available Procedures Date Code Description Status 04/09/2021 04675 Revise Total Knee Ar throplasty Femoral & Entire Tibial Component Completed 04/08/2021 72785 Office/Outpatient Established Lo w MDM 20-29 Min Completed 03/06/2021 28165 Office/Outpatient Established Mo d MDM 30-39 Min Completed 12/10/2020 45962 Remove Total Knee Prosthesis Com pleted 12/10/2020 68142 Insertion, Non-Biodegradable Nickolas g Delivery Implant Completed 11/29/2020 32302 Office/Outpatient Established Mo d MDM 30-39 Min Completed 10/16/2020 50648 Office/Outpatient New Low MDM 30 -44 Minutes Completed Medical Devices Description No Information Available Encounters Type Date Location Provider Dx Diagnosis Office Visit 04/08/2021 1:00p Henry Tillman MD [...] orthoped ic aftercare Office Visit 01/01/2021 11:00a [facility] David Tillman MD T84.53xD 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, subs Office Visit 12/24/2020 9:30a [facility] David Tillman MD T84.53xD 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, subs Z48.02 Encounter for removal of sut ures Office Visit 11/29/2020 10:30a [facility] David Tillman MD T84.59xA Infect/inflm reaction due to oth internal joint prosth, init Office Visit 10/16/2020 9:00a [facility] David Tillman MD T84.53xD Infect/inflm [...] Treatment Future Appointment(s):* 04/25/2021 9:30 am - Dvaid Tillman MD at [facility] 04/08/2021 - David Tillman MD* T84.53xD Infection [...] prosthetic joint infection rt knee. Closed 10/16/2020 [facility] [address] , [facility] [place] [address] [phone]
--- OUTSIDE RECORDS SUMMARY | 2021-05-09 10:13 | CCD ---
Continuity of Care Document (CCD) Created on: 04/08/2021 Hossein Nathan External Reference #: [id number] Sex: Male Author Author Hossein TILLMAN MD Organization Unknown Address [address] [place] [address] , [facility] [place] [address] Phone [phone] Care Team Providers Care Psychosocial Rehabilitation Counselor Name Role Phone AmeliaPaulette D.O. AUTM [phone] Problems Active Problems Provider Date Essential hypertension [...] Temperature 97.6 F Height 64 inches 5'4" [place] Body Weight 130 lb 03/06/2021 9:56am Body Temperature 97.4 F Height 64 inches 5'4" Weight 140.00 lb BMI (Body Mass Index) 24.0 kg/m2 [place] Body Weight 130 lb Weight 63.504 kg BSA (Body Surface Area) 1.68 m2 Results Description No Information Available Procedures Date Code Description Status 04/08/2021 93767 Office/Outpatient Established Lo w MDM 20-29 Min Completed 03/06/2021 34746 Office/Outpatient Established Mo d MDM 30-39 Min Completed 12/10/2020 35172 Remove Total Knee Prosthesis Com pleted 12/10/2020 94343 Insertion, Non-Biodegradable Nickolas g Delivery Implant Completed 11/29/2020 63839 Office/Outpatient Established Mo d MDM 30-39 Min Completed 10/16/2020 98812 Office/Outpatient New Low MDM 30 -44 Minutes [...] joint prosth, init Office Visit 10/16/2020 9:00a [facility] Tillman MD T84.53xD Infect/inflm reaction due to [...] 11:30 am - David Tillman MD at [facility] * 04/25/2021 9:30 am - David Tillman MD at [facility] 04/08/2021 - David Tillman MD* T84.53xD [...] prosthetic joint infection rt knee. Closed 10/16/2020 [facility] [address] , [facility] [place] [address] [phone]
--- OUTSIDE RECORDS SUMMARY | 2021-05-09 10:13 | CCD | Continuity of Care Document ---
Author Author Hossein TILLMAN MD Organization Unknown Address [address] [place] [address] , [facility] [address] Phone [phone] Care Team Providers Care Accounts Specialist Name Role Phone AmeliaPaulette D.O. AUTM [phone] Problems Active Problems Provider Date Essential hypertension [...] Temperature 97.6 F Height 64 inches 5'4" [place] Body Weight 130 lb 03/06/2021 9:56am Body Temperature 97.4 F Height 64 inches 5'4" Weight 140.00 lb BMI (Body Mass Index) 24.0 kg/m2 [place] Body Weight 130 lb Weight 63.504 kg BSA (Body Surface Area) 1.68 m2 Results Description No Information Available Procedures Date Code Description Status 04/08/2021 41225 Office/Outpatient Established Lo w MDM 20-29 Min Completed 03/06/2021 36683 Office/Outpatient Established Mo d MDM 30-39 Min Completed 12/10/2020 91671 Remove Total Knee Prosthesis Com pleted 12/10/2020 43525 Insertion, Non-Biodegradable Nickolas g Delivery Implant Completed 11/29/2020 83045 Office/Outpatient Established Mo d MDM 30-39 Min Completed 10/16/2020 41781 Office/Outpatient New Low MDM 30 -44 Minutes [...] am - David Tillman MD at [facility] * 04/25/2021 9:30 am - David Tillman MD at [place] 04/08/2021 - David Tillman MD* T84.53xD Infection [...] prosthetic joint infection rt knee. Closed 10/16/2020 [facility] [address] , [facility] [place] [address] [phone]
--- OUTSIDE RECORDS SUMMARY | 2021-05-09 10:14 | CCD ---
Author Author [facility] Organization [facility] Address Unknown Phone Unavailable Care Team Providers Care Collision Repairer Name Role Phone Cooper, P Doyle PA Unavailable Unavailable Cooper, P Doyle PA Unavailable Unavailable Cooper, P Doyle PA Unavailable Unavailable Cooper, P Doyle PA Unavailable Unavailable Cooper, P Doyle PA Unavailable Unavailable Cooper, P Doyle PA Unavailable Unavailable Cooper, P Doyle PA Unavailable Unavailable Cooper, P Doyle PA Unavailable Unavailable Cooper, P Doyle PA Unavailable Unavailable Cooper, P Doyle PA Unavailable Unavailable Cooper, P Doyle PA Unavailable Unavailable Cooper, P Doyle PA Unavailable Unavailable Cooper, P Doyle PA Unavailable Unavailable Cooper, P Doyle PA Unavailable Unavailable Cooper, P Doyle PA Unavailable Unavailable Cooper, P Doyle PA Unavailable Unavailable Cooper, P Doyle PA Unavailable Unavailable Cooper, P Doyle PA Unavailable Unavailable Cooper, P Doyle PA Unavailable Unavailable Cooper, P Doyle PA Unavailable Unavailable Cooper, P Doyle PA Unavailable Unavailable Cooper, P Doyle PA Unavailable Unavailable Cooper, P Doyle PA Unavailable Unavailable Cooper, P Doyle PA Unavailable Unavailable Cooper, P Doyle PA Unavailable Unavailable Cooper, P Doyle PA Unavailable Unavailable Cooper, P Doyle PA Unavailable Unavailable Cooper, P Doyle PA Unavailable Unavailable Cooper, P Doyle PA Unavailable Unavailable Cooper, P Doyle PA Unavailable Unavailable Cooper, P Doyle PA Unavailable Unavailable Cooper, P Doyle PA Unavailable Unavailable Cooper, P Doyle PA Unavailable Unavailable Cooper, P Doyle PA Unavailable Unavailable Cooper, P Doyle PA Unavailable Unavailable Cooper, P Doyle PA Unavailable Unavailable Cooper, P Doyle PA Unavailable Unavailable Cooper, P Doyle PA Unavailable Unavailable Cooper, P Doyle PA Unavailable Unavailable Cooper, P Doyle PA Unavailable Unavailable Cooper, P Doyle PA Unavailable Unavailable Cooper, P Doyle PA Unavailable Unavailable SMITH, A JANET MD Unavailable Unavailable SMITH, A JANET MD Unavailable Unavailable SMITH, A JANET MD Unavailable Unavailable SMITH, A JANET MD Unavailable Unavailable SMITH, A JANET MD Unavailable Unavailable SMITH, A JANET MD Unavailable Unavailable SMITH, A JANET MD Unavailable Unavailable SMITH, A JANET MD Unavailable Unavailable SMITH, A JANET MD Unavailable Unavailable SMITH, A JANET MD Unavailable Unavailable SMITH, A JANET MD Unavailable Unavailable SMITH, A JANET MD Unavailable Unavailable SMITH, A JANET MD Unavailable Unavailable SMITH, A JANET MD Unavailable Unavailable SMITH, A JANET MD Unavailable Unavailable SMITH, A JANET MD Unavailable Unavailable SMITH, A JANET MD Unavailable Unavailable SMITH, A JANET MD Unavailable Unavailable SMITH, A JANET MD Unavailable Unavailable SMITH, A JANET MD Unavailable Unavailable SMITH, A JANET MD Unavailable Unavailable SMITH, A JANET MD Unavailable Unavailable SMITH, A JANET MD Unavailable Unavailable SMITH, A JANET MD Unavailable Unavailable SMITH, A JANET MD Unavailable Unavailable SMITH, A JANET MD Unavailable Unavailable SMITH, A JANET MD Unavailable Unavailable SIMTH, A JANET MD Unavailable Unavailable SMITH, A JANET MD Unavailable Unavailable SMITH, A JANET MD Unavailable Unavailable SMITH, A JANET MD Unavailable Unavailable SMITH, A JANET MD Unavailable Unavailable SMITH, A JANET MD Unavailable Unavailable SMITH, A JANET MD Unavailable Unavailable SMITH, A JANET MD Unavailable Unavailable SMITH, A JANET MD Unavailable Unavailable SMITH, A JANET MD Unavailable Unavailable SMITH, A JANET MD Unavailable Unavailable SMITH, A JANET MD Unavailable Unavailable SMITH, A JANET MD Unavailable Unavailable SMITH, A JANET MD Unavailable Unavailable SMITH, A JANET MD Unavailable Unavailable SMITH, A JANET MD Unavailable Unavailable SMITH, A JANET MD Unavailable Unavailable SMITH, A JANET MD Unavailable Unavailable SMITH, A JANET MD Unavailable Unavailable SMITH, A JANET MD Unavailable Unavailable SMITH, A JANET MD Unavailable Unavailable SMITH, A JANET MD Unavailable Unavailable SMITH, A JANET MD Unavailable Unavailable SMITH, A JANET MD Unavailable Unavailable SMITH, A JANET MD Unavailable Unavailable SMITH, A JANET MD Unavailable Unavailable SMITH, A JANET MD Unavailable Unavailable SMITH, A JANET MD Unavailable Unavailable SMITH, A JANET MD Unavailable Unavailable SMITH, A JANET MD Unavailable Unavailable SMITH, A JANET MD Unavailable Unavailable SMITH, A JANET MD Unavailable Unavailable SMITH, A JANET MD Unavailable Unavailable SMITH, A JANET MD Unavailable Unavailable SMITH, A JANET MD Unavailable Unavailable SMITH, A JANET MD Unavailable Unavailable SMITH, A JANET MD Unavailable Unavailable SMITH, A JANET MD Unavailable Unavailable SMITH, A JANET MD Unavailable Unavailable SMITH, A JANET MD Unavailable Unavailable SMITH, A JANET MD Unavailable Unavailable SMITH, A JANET MD Unavailable Unavailable SMITH, A JANET MD Unavailable Unavailable SMITH, A JANET MD Unavailable Unavailable SMITH, A JANET MD Unavailable Unavailable SMITH, A JANET MD Unavailable Unavailable SMITH, A JANTE MD Unavailable Unavailable SMITH, A JANET MD Unavailable Unavailable SMITH, A JANET MD Unavailable Unavailable SMITH, A JANET MD Unavailable Unavailable SMITH, A JANET MD Unavailable Unavailable SMITH, A JANET MD Unavailable Unavailable SMITH, A JANET MD Unavailable Unavailable SMITH, A JANET MD Unavailable Unavailable SMITH, A JANET MD Unavailable Unavailable SMITH, A JANET MD Unavailable Unavailable SMITH, A JANET MD Unavailable Unavailable SMITH, A JANET MD Unavailable Unavailable SMITH, A JANET MD Unavailable Unavailable SMITH, A JANET MD Unavailable Unavailable SMITH, A JANET MD Unavailable Unavailable SMITH, A JANET MD Unavailable Unavailable SMITH, A JANET MD Unavailable Unavailable SMITH, A JANET MD Unavailable Unavailable SMITH, A JANET MD Unavailable Unavailable Amelia, Paulette DO Unavailable Unavailable Amelia, Paulette DO Unavailable Unavailable Amelia, Paulette DO Unavailable Unavailable Amelia, Paulette DO Unavailable Unavailable Amelia, Paulette DO Unavailable Unavailable Amelia, Paulette DO Unavailable Unavailable Amelia, Paulette DO Unavailable Unavailable Amelia, Paulette DO Unavailable Unavailable Amelia, Paulette DO Unavailable Unavailable Amelia, Paulette DO Unavailable Unavailable Amelia, Paulette DO Unavailable Unavailable Amelia, Paulette DO Unavailable Unavailable Amelia, Paulette DO Unavailable Unavailable Amelia, Paulette DO Unavailable Unavailable Amelia, Paulette DO Unavailable Unavailable Amelia, Paulette DO Unavailable Unavailable Amelia, Paulette DO Unavailable Unavailable Amelia, Paulette DO Unavailable Unavailable Amelia, Paulette DO Unavailable Unavailable Amelia, Paulette DO Unavailable Unavailable Amelia, Paulette DO Unavailable Unavailable Amelia, Paulette DO Unavailable Unavailable Amelia, Paulette DO Unavailable Unavailable Amelia, Paulette DO Unavailable Unavailable Amelia, Paulette DO Unavailable Unavailable Amelia, Paulette DO Unavailable Unavailable Amelia, Paulette DO Unavailable Unavailable Amelia, Paulette DO Unavailable Unavailable Amelia, Paulette DO Unavailable Unavailable Amelia, Paulette DO Unavailable Unavailable Amelia, Paulette DO Unavailable Unavailable Amelia, Paulette DO Unavailable Unavailable Amelia, Paulette DO Unavailable Unavailable Amelia, Paulette DO Unavailable Unavailable Amelia, Paulette DO Unavailable Unavailable Amelia, Paulette DO Unavailable Unavailable Amelia, Paulette DO Unavailable Unavailable Amelia, Paulette DO Unavailable Unavailable Amelia, Paulette DO Unavailable Unavailable Amelia, Paulette DO Unavailable Unavailable Amelia, Paulette DO Unavailable Unavailable Amelia, Paulette DO Unavailable Unavailable Amelia, Paulette DO Unavailable Unavailable Amelia, Paulette DO Unavailable Unavailable Amelia, Paulette DO Unavailable Unavailable Amelia, Paulette DO Unavailable Unavailable Amelia, Paulette DO Unavailable Unavailable Amelia, Paulette DO Unavailable Unavailable Amelia, Paulette DO Unavailable Unavailable Amelia, Paulette DO Unavailable Unavailable Amelia, Paulette DO Unavailable Unavailable Amelia, Paulette DO Unavailable Unavailable Amelia, Paulette DO Unavailable Unavailable Amelia, Paulette DO Unavailable Unavailable Amelia, Paulette DO Unavailable Unavailable Amelia, Paulette DO Unavailable Unavailable Amelia, Paulette DO Unavailable Unavailable Amelia, Paulette DO Unavailable Unavailable Amelia, Paulette DO Unavailable Unavailable Amelia, Paulette DO Unavailable Unavailable Amelia, Paulette DO Unavailable Unavailable Amelia, Paulette DO Unavailable Unavailable Amelia, Paulette DO Unavailable Unavailable Amelia, Paulette DO Unavailable Unavailable Amelia, Paulette DO Unavailable Unavailable Amelia, Paulette DO Unavailable Unavailable Amelia, Paulette DO Unavailable Unavailable Amelia, Paulette DO Unavailable Unavailable Amelia, Paulette DO Unavailable Unavailable Amelia, Paulette DO Unavailable Unavailable Amelia, Paulette DO Unavailable Unavailable Amelia, Paulette DO Unavailable Unavailable Amelia, Paulette DO Unavailable Unavailable Amelia, Paulette DO Unavailable Unavailable David Hernández MD Unavailable Unavailable David Hernández MD Unavailable Unavailable David Hernández MD Unavailable Unavailable David Hernández MD Unavailable Unavailable David Hernández MD Unavailable Unavailable David Hernández MD Unavailable Unavailable David Hernández MD Unavailable Unavailable David Hernández MD Unavailable Unavailable David Hernández MD Unavailable Unavailable Vasu Umana MD Unavailable Unavailable Vasu Umana MD Unavailable Unavailable Vasu Umana MD Unavailable Unavailable Vasu Umana MD Unavailable Unavailable Vasu Umana MD Unavailable Unavailable Vasu Umana MD Unavailable Unavailable Vasu Umana MD Unavailable Unavailable Vasu Umana MD Unavailable Unavailable Vasu Umana MD Unavailable Unavailable Vasu Umana MD Unavailable Unavailable Vasu Umana MD Unavailable Unavailable Vasu Umana MD Unavailable Unavailable Vasu Umana MD Unavailable Unavailable Vasu Umana MD Unavailable Unavailable Vasu Umana MD Unavailable Unavailable Vasu Umana MD Unavailable Unavailable aVsu Umana MD Unavailable Unavailable Vasu Umana MD Unavailable Unavailable Vasu Umana MD Unavailable Unavailable Vasu Umana MD Unavailable Unavailable Vasu Umana MD Unavailable Unavailable Vasu Umana MD Unavailable Unavailable Vsau Umana MD Unavailable Unavailable Vasu Umana MD Unavailable Unavailable Vasu Umana MD Unavailable Unavailable Vasu Umana MD Unavailable Unavailable Vasu Umana MD Unavailable Unavailable Vasu Umana MD Unavailable Unavailable Vasu Umana MD Unavailable Unavailable Vasu Umana MD Unavailable Unavailable Vasu Umana MD Unavailable Unavailable Vasu Umana MD Unavailable Unavailable Vasu Umana MD Unavailable Unavailable Vasu Umana MD Unavailable Unavailable Vasu Umana MD Unavailable Unavailable Vasu Umana MD Unavailable Unavailable Vasu Umana MD Unavailable Unavailable Vasu Umana MD Unavailable Unavailable Vasu Umana MD Unavailable Unavailable Vasu Umana MD Unavailable Unavailable Vasu Umana MD Unavailable Unavailable Vasu Umana MD Unavailable Unavailable Vasu Umana MD Unavailable Unavailable Vasu Umana MD Unavailable Unavailable Vasu Umana MD Unavailable Unavailable Vasu Umana MD Unavailable Unavailable Vasu Umana MD Unavailable Unavailable Vasu Umana MD Unavailable Unavailable Vasu Umana MD Unavailable Unavailable Vasu Umana MD Unavailable Unavailable Vasu Umana MD Unavailable Unavailable Vasu Umana MD Unavailable Unavailable Bola Somers MD Unavailable Unavailable Bola Somers MD Unavailable Unavailable Bola Somers MD Unavailable Unavailable Bola Somers MD Unavailable Unavailable Bola Somers MD Unavailable Unavailable Bola Somers MD Unavailable Unavailable Bola Somers MD Unavailable Unavailable Bola Somers MD Unavailable Unavailable oBla Somers MD Unavailable Unavailable Bola Somers MD Unavailable Unavailable Bola Somers MD Unavailable Unavailable Bola Somers MD Unavailable Unavailable Bola Somers MD Unavailable Unavailable Bola Somers MD Unavailable Unavailable Bola Somers MD Unavailable Unavailable Bola Somers MD Unavailable Unavailable Bola Somers MD Unavailable Unavailable Bola Somers MD Unavailable Unavailable Bola Somers MD Unavailable Unavailable Bola Somers MD Unavailable Unavailable Bola Somers MD Unavailable Unavailable Bola Somers MD Unavailable Unavailable Bola Somers MD Unavailable Unavailable Bola Somers MD Unavailable Unavailable Bola Somers MD Unavailable Unavailable Bola Somers MD Unavailable Unavailable Bola Somers MD Unavailable Unavailable Bola Somers MD Unavailable Unavailable Bola Somers MD Unavailable Unavailable Bola Somers MD Unavailable Unavailable Bola Somers MD Unavailable Unavailable Bola Somers MD Unavailable Unavailable Bola Somers MD Unavailable Unavailable Bola Somers MD Unavailable Unavailable Bola Somers MD Unavailable Unavailable Bola Somers MD Unavailable Unavailable Bola Somers MD Unavailable Unavailable Bola Somers MD Unavailable Unavailable Bola Somers MD Unavailable Unavailable Bola Somers MD Unavailable Unavailable Bola Somers MD Unavailable Unavailable Bola Somers MD Unavailable Unavailable Bola Somers MD Unavailable Unavailable Bola Somers MD Unavailable Unavailable Bola Somers MD Unavailable Unavailable Bola Somers MD Unavailable Unavailable Bola Somers MD Unavailable Unavailable Bola Somers MD Unavailable Unavailable Bola Somers MD Unavailable Unavailable Bola Somers MD Unavailable Unavailable Slezka, Bola Unavailable Unavailable Slezka, Bola Unavailable Unavailable Slezka, Calejnic Unavailable Unavailable Slezka, Calejnic MD Unavailable Unavailable Slezka, Calejtech MD Unavailable Unavailable Slezka, Calejtech MD Unavailable Unavailable Slezka, Calejnic MD Unavailable Unavailable SlezBola young MD Unavailable Unavailable Re-disclosure Warning The records that you are about to access may contain information from federally-assisted alcohol or drug abuse programs. If such information is present, then the following federally mandated warning applies: This information has been disclosed to you from records protected by federal confidentiality rules (42 CFR part 2). The federal rules prohibit you from making any further disclosure of this information unless further disclosure is expressly permitted by the written consent of the person to whom it pertains or as otherwise permitted by 42 CFR part 2. A general authorization for the release of medical or other information is NOT sufficient for this purpose. The Federal rules restrict any use of the information to criminally investigate or prosecute any alcohol or drug abuse patient.The records that you are about to access may contain highly sensitive health information, the redisclosure of which is protected by Article 27-F of the [facility] Public Health law. If you continue you may have access to information: Regarding HIV / AIDS; Provided by facilities licensed or operated by the [facility] Office of Mental Health; or Provided by the [facility] Office for People With Developmental Disabilities. If such information is present, then the following [facility] mandated warning applies: This information has been disclosed to you from confidential records which are protected by state law. State law prohibits you from making any further disclosure of this information without the specific written consent of the person to whom it pertains, or as otherwise permitted by law. Any unauthorized further disclosure in violation of state law may result in a fine or retirement sentence or both. A general authorization for the release of medical or other information is NOT sufficient authorization for further disc losure. Allergies and Adverse Reactions Type Description Substance Reaction Status Data Source(s ) Sulfasalazine Sulfa Antibiotics Sulfasalazine kidney issues Active eCW1 ([facility]) Propensity to adverse reactions NO KNOWN ALLERGIES NO KNOWN ALLERGIES [facility] Family History Family Member Name Family Member Gender Family Member Status Date o f Status Description Data Source(s) Unknown Male Problem MEDENT ([facility]) Unknown Male Problem MEDENT ([facility]) Encounters Encounter Providers Location Date Indications Data Source(s ) Office Visit Attender: David Mendoza/Sparks/Eugenio/Rein dl 04/30/2021 01:00:00 PM EDT MEDENT ([facility]) Office Visit Attender: David Mendoza/Sparks/Eugenio/Rein dl 04/25/2021 09:30:00 AM EDT MEDENT ([facility]) [place] [address] [facility] [address] 04/22/2021 12:00:00 AM EDT eCW1 ([facility]) [place] [address] [facility] [address] 04/21/2021 12:00:00 AM EDT eCW1 ([facility]) Office Visit Attender: David Mendoza/Wagner/Eugenio/Rein dl 04/14/2021 02:30:00 PM EDT MEDENT ([facility]) Outpatient Attender: David Mendoza/Wagner/Eugenio/Rein dl 04/08/2021 01:00:00 PM EDT MEDENT ([facility]) [place] [address] [facility] [address] 04/01/2021 12:00:00 AM EDT eCW1 ([facility]) Outpatient Attender: Bola LOPEZ.SHANTI-SJFILOMENA 08/2020 12:00:00 AM EDT - 03/27/2021 12:04:45 PM EDT [facility] [place] [address] [address] 03/10/2021 12:00:00 AM EDT [facility]CW1 [facility]) Outpatient Attender: David Mendoza/Sparks/Eugenio/Rein dl 03/06/2021 10:00:00 AM EDT MEDENT ([facility]) Outpatient Attender: Paulette Penaloza 03/03 02:30:00 PM EDT MEDENT ([facility] ) Office Visit Attender: David Mendoza/Wagner/Eugenio/Rein dl 02/24/2021 10:30:00 AM EDT MEDENT ([facility]) [place] [address] [facility] [address] 02/18/2021 12:00:00 AM EDT eCW1 ([facility]) [place] [address] [address] 02/17/2021 12:00:00 AM EDT eCW1 ([facility]) [place] [address] [address] 01/28/2021 12:00:00 AM EDT eCW1 ([facility]) [place] [address] [facility] [address] 01/28/2021 12:00:00 AM EDT eCW1 ([facility]) Office Visit Attender: David Mendoza/Wagner/Eugenio/Rein dl 01/24/2021 11:00:00 AM EDT MEDENT ([facility]) [place] [address] [facility] [address] 01/23/2021 12:00:00 AM EDT eCW1 ([facility]) Office Visit Attender: David Mendoza/Wagner/Eugenio/Rein dl 01/20/2021 01:00:00 PM EDT MEDENT ([facility]) [place] [address] [facility] [address] 01/16/2021 12:00:00 AM EDT eCW1 ([facility]) [place] [address] [facility] [address] 01/07/2021 12:00:00 AM EDT eCW1 ([facility]) Office Visit Attender: David Mendoza/Wagner/Eugenio/Rein dl 01/01/2021 11:00:00 AM EDT MEDENT ([facility]) Office Visit Attender: David Mendoza/Wagner/Eugenio/Rein dl 12/24/2020 09:30:00 AM EDT MED[facility] ([facility]) [place] [address] [facility] [address] 12/19/2020 12:00:00 AM EDT eCW1 ([facility]) [place] [address] [facility] [address] 12/19/2020 12:00:00 AM EDT eCW1 ([facility]) Unknown [address] [facility] [place] [address] 12/10/2020 12:00:00 AM EDT eCW1 ([facility]) Outpatient Attender: Paulette Penaloza 12/06 10:20:00 AM EDT MEDENT ([facility] ) [place] [address] [facility] [address] 12/02/2020 12:00:00 AM EDT eCW1 ([facility]) Unknown [address] [facility] [place] [address] 12/02/2020 12:00:00 AM EDT eCW1 ([facility]) Outpatient Attender: David Mendoza/Wagner/Eugenio/Rein dl 11/29/2020 10:30:00 AM EDT MEDENT ([facility]) Unknown [address] [facility] [place] [address] 11/28/2020 12:00:00 AM EDT eCW1 ([facility]) Outpatient [address] [facility] [place] [address] 11/26/2020 12:00:00 AM EDT eCW1 ([facility]) Unknown [address] [facility] [place] [address] 11/26/2020 12:00:00 AM EDT eCW1 ([facility]) Outpatient Attender: Bola Somers MDReferrer: Suzie Umana MD SJP.[email or web address]-[email or web address].SHANTI 11/06/2020 09:31:15 AM EDT - 11/06/2020 10:04:09 AM EDT [facility] Outpatient Attender: Paulette Penaloza 11/05 09:00:00 AM EDT MEDENT ([facility] ) [place] [address] [facility] [address] 11/04/2020 12:00:00 AM EDT eCW1 ([facility]) [place] [address] [facility] [address] 11/04/2020 12:00:00 AM EDT eCW1 ([facility]) [place] [address] [facility] [address] 10/28/2020 12:00:00 AM EDT eCW1 ([facility]) [place] [address] [facility] [address] 10/21/2020 12:00:00 AM EDT eCW1 ([facility]) Outpatient Attender: David Mendoza/Wagner/Eugenio/Meg figueredo 10/16/2020 09:00:00 AM EDT MEDENT ([facility]) Outpatient Attender: Doyle OORURKE 10/03/2020 12:00:00 AM [facility] Outpatient Attender: Paulette Penaloza 08/19 08:00:00 AM EST MEDENT ([facility] ) Outpatient Referrer: JANET SMITH MD 03/25/2020 12 :00:00 AM EDT Presence of artificial knee joint, bilateral [facility] Presence of artificial knee joint, jose eduardo cool Outpatient Attender: JANET SMITH MD [id number] 03/25/2020 12:00:0 0 AM EDT [facility] Outpatient Attender: Paulette Penaloza 03/12 02:45:00 PM EDT MEDENT ([facility] ) Immunizations Vaccine Date Status Description Data Source(s) influenza, recombinant, quadrIvalent,injectable, prese rvative free 04/21/2021 12:37:00 PM EDT completed eCW1 ([facility]) influenza, recombinant, quadrIvalent,injectable, prese rvative free 04/21/2021 12:37:00 PM EDT completed eCW1 ([facility]) COVID-19 VACCINE Moderna 09/06/2020 12:00:00 AM EST completed [facility] Vaccine Series Complete: YESThis Data wa s Submitted to [facility]. COVID-19 VACCINE, MRNA-1273, LNP-S (MODERNA)/PF 09/06/2020 1 2:00:00 AM EST completed [facility] COVID-19 VACCINE, MRNA-1273, LNP-S (MODERNA)/PF 08/10/2020 1 2:00:00 AM EST completed [facility] COVID-19 VACCINE Moderna 08/10/2020 12:00:00 AM EST completed [facility] Vaccine Series Complete: NOThis Data was Submitted to [facility]. This CVX code allows reporting of a vacc ination when formulation is unknown (for example, when recording a Influenza vaccination when noted on a vaccination card) 05/17/2020 08:57:00 AM EDT completed MEDEN T ([facility]) INFLUENZA VACCINE QUADRIVALENT (65 YR UP)/MF59 C.1/PF 05/17/2020 12:00:00 AM EDT completed [facility] Medications Medication Brand Name Start Date Product Form Dose Route Admi nistrative Instructions Pharmacy Instructions Status Indications Reaction Description Data Source(s) Hydrochlorothiazide 12.5 MG Oral Tablet Hydrochlorothiazide 04/21/2021 12:00:00 AM EDT ORAL completed MEDENT ([facility]) Losartan Potassium 25 MG Oral Tablet Losartan Potassium 12:00:00 AM EDT ORAL completed MEDENT ([facility]) Furosemide 20 MG Oral Tablet Furosemide 04/21/2021 12:00:00 AM EDT active MEDENT ([facility]) Sulfamethoxazole 800 MG / Trimethoprim 160 MG Oral Tab let Sulfamethoxazole/Trimethoprim DS 04/11/2021 12:00:00 AM EDT ORAL active MEDENT ([facility] ) Acetaminophen 500 MG Oral Tablet [Tylenol] Tylenol Extra Str ength 03/25/2021 12:00:00 AM EDT active M [facility]ENT ([facility]) Vitamin C 03/25/2021 12:00:00 AM EDT ORAL active [facility] ([facility]) ceFAZolin Sodium 2 GM/20ML ceFAZolin Sodium 2 GM/20ML 2020 12:00:00 AM EDT active ceFAZolin Sodium 2 GM/20ML eCW1 ([facility]ly [facility]) Cefazolin Sodium 2 GM/20ML Cefazolin Sodium 2 GM/20ML 2020 12:00:00 AM EDT active Cefazolin Sodium 2 GM/20ML eCW1 ([facility]) Cefazolin Sodium 2 GM/20ML Cefazolin Sodium 2 GM/20ML 2020 12:00:00 AM EDT active Cefazolin Sodium 2 GM/20ML eCW1 ([facility]) ceFAZolin Sodium 2 GM/20ML ceFAZolin Sodium 2 GM/20ML 2020 12:00:00 AM EDT active ceFAZolin Sodium 2 GM/20ML eCW1 ([facility]) Multivitamin Men 50+ 12/06/2020 12:00:00 AM EDT ORAL active [facility] ([facility]) Iron OTC 12/06/2020 12:00:00 AM EDT ORAL completed [facility] ([facility]) Hydralazine Hydrochloride 25 MG Oral Tablet Hydralazine HCL 12/02/2020 12:00:00 AM EDT ORAL active [facility] ([facility]) chlorhexidine gluconate 40 MG/ML Medicated Liquid Soap [Hibi clens] Hibiclens 11/30/2020 12:00:00 AM EDT completed [facility] ([facility] ) Hydralazine Hydrochloride 10 MG Oral Tablet Hydralazine HCL 11/05/2020 12:00:00 AM EDT completed [facility] ([facility]) Amlodipine 5 MG Oral Tablet Amlodipine Besylate 11/05/2020 12:00:00 A M EDT ORAL completed [facility] ([facility]) Hydralazine Hydrochloride 25 MG Oral Tab let hydrALAZINE (APRESOLINE) 25 MG tablet hydrALAZINE (APRESOLINE) 25 MG tablet 11/05/2020 12:00:00 AM EDT active [facility] Hydralazine Hydrochloride 25 MG Oral Tablet Hydralazine HCL 11/05/2020 12:00:00 AM EDT completed [facility] ([facility]) atorvastatin 40 MG Oral Tablet Atorvastatin Calcium 11/04/2020 1 2:00:00 AM EDT ORAL active [facility] ( [facility]) Furosemide 40 MG Oral Tablet Furosemide 11/04/2020 12:00:00 AM EDT ORAL completed [facility] ([facility]) Amlodipine 10 MG Oral Tablet Amlodipine Besylate 11/04/2020 12:00:00 AM EDT ORAL completed [facility] ([facility]) atorvastatin 40 MG Oral Tablet atorvastatin (LIPITOR) 40 MG tablet atorvastatin (LIPITOR) 40 MG tablet 11/01/2020 12:00:00 AM EDT active [facility] Nafcillin 100 MG/ML Injectable Solution Nafcillin Sodi um 10 g SOLR Nafcillin Sodium 10 g SOLR 10/28/2020 12:00:00 AM EDT aborte d [facility] Calcitriol 0.33732 MG Oral Capsule calcitriol (ROCALTR OL) 0.25 MCG capsule calcitriol (ROCALTROL) 0.25 MCG capsule 10/25/2020 12:00:00 AM EDT active TAKE 1 CAPSULE BY MOUTH ONCE A D AY Wednesday [facility] tramadol hydrochloride 50 MG Oral Tablet Tramadol HCL 10/11/2020 12:00:00 AM EDT ORAL completed [facility] ([facility]) Probiotic Product (TERESA-BID PROBIOTIC) TABS 31098-433-60 10/10/2020 12:00:00 AM EDT active TAKE 1 CAPSULE BY MOUTH TWICE DAILY WITH FOOD [facility] Rifampin 150 MG Oral Capsule rifampin (RIFADIN) 150 MG capsule rifampin (RIFADIN) 150 MG capsule 10/10/2020 12:00:00 AM EDT 300 mg Oral aborted Take 300 mg by mouth 2 (two) times a day [facility] gabapentin 800 MG Oral Tablet gabapentin (NEURONTIN) 8 00 MG tablet gabapentin (NEURONTIN) 800 MG tablet 09/16/2020 12:00:00 AM EST 800 mg Oral active Take 800 mg by mouth 2 (two) times a day [facility] Covid-19 vaccine, Unspecified 08/10/2020 12:00:00 AM EST completed [facility]) Medication administered onsite Amlodipine 2.5 MG Oral Tablet Amlodipine Besylate 03/13/2020 12:00: 00 AM EDT ORAL active [facility] ([facility]) Amlodipine 2.5 MG Oral Tablet Amlodipine Besylate 03/12/2020 12:00: 00 AM EDT ORAL completed [facility] ([facility]) torsemide 10 MG Oral Tablet torsemide (DEMADEX) 10 MG tablet torsemide (DEMADEX) 10 MG tablet 10 mg Oral aborted Take 10 mg by mouth daily [facility] Insurance Providers Payer name Policy type / Coverage type Policy ID Covered green party ID Covered green party's relationship to mo Policy Mo Plan Information [id number] A [facility] TODAY OPTIONS [id number] Self [id number] MEDICARE [id number] A [place] Med[place] B [id number] Self 1 [id number] [place] Medigap Part B [id number] Self 1 [id number] [place] Medigap Part B [id number] Self 1 [id number] Medicare [place] Medigap Part B [id number] Self [id number] [employer] Option Medicare Commercial [id number] Self [id number] [employer] Medicare Commercial [id number] Self [id number] [employer] Commercial [id number] 1881.0 Self [id number] [employer] Medicare Commercial [id number] Self [id number] [employer] Commercial [id number] 1881.0 Self [id number] [employer] Commercial [id number] 1881.0 Self [id number] [employer] Medicare Commercial [id number] Self [id number] [employer] Medicare Commercial [id number] Self [id number] [employer] Commercial [id number]1.4 1881.0 Self [id number] [employer] Medicare Commercial [id number] Self [id number] [employer] Medicare Commercial [id number] Self [id number] [employer] Medicare Commercial [id number] Self [id number] [employer] Medicare Commercial [id number] Self [id number] Tod[employer] Option Medicare Commercial [id number] Self [id number] AMER PROG TODAYS OPTIONS G [id number] Self [id number] WELLCARE MEDICARE HMO G [id number] Self [id number] WELLCARE MEDICARE HMO G [id number] Self [id number] Wellcare/Todays Optmcr Commercial [id number] Self [id number] WELLCARE MEDICARE [id number] WELLCARE MEDICARE [id number] [facility] [id number] MEDICARE [id number] SP [id number] A MEDICARE [id number] SP [id number] A TODAYS OPTIONS/[place] O [id number] S [id number] Medicare Natl Govt Servic Medicare Primary [id number] Self [id number] Medicare Natl Govt Servic Medicare Primary [id number] Self [id number] Medicare Natl Govt Servic Medicare Primary [id number] Self [id number] Medicare Natl Govt Servic Medicare Primary [id number] Self [id number] Wellcare Health Plans(To) Commercial [id number] Self [id number] Medicare Natl Govt Servic Medicare Primary [id number] Self [id number] TODAYS OPTIONS [id number] SP [id number] TODAYS OPTIONS [id number] SP [id number] WELLCARE [id number] SP [id number] Medicare Natl Govt Servic Medicare Primary [id number] Self [id number] MEDICARE [id number] SP [id number] A Medicare Natl Govt Servic Medicare Primary [id number] Self [id number] MEDICARE [id number] SP [id number] Medicare Natl Govt Servic Medicare Primary [id number] Self [id number] Medicare Natl Govt Servic Medicare Primary [id number] Self [id number] Medicare Natl Govt Servic Medicare Primary [id number] Self [id number] Medicare Natl Govt Servic Medicare Primary [id number] Self [id number] Medicare Natl Govt Servic Medicare Primary [id number] Self MEDICARE C [id number] S [id number] A Medicare Natl Govt Servic Medicare Primary [id number] Self [id number] WELLCARE [id number] SP [id number] Medicare Natl Govt Servic Medicare Primary [id number] Self [id number] Problems, Conditions, and Diagnoses Code Display Name Description Problem Type Effective Dates Data Source(s) Z01.810 Encounter for preprocedural cardiovascul ar examination Encounter for preprocedural cardiovascul Diagnosis 03/27/2021 11:21:34 AM EDT [facility] Q21.1 Atrial septal defect Atrial septal defect Diagnosis 11/06/2020 09:31:15 AM EDT [facility] I33.0 Acute and subacute infective endocarditi s Acute and subacute infective endocarditi Diagnosis 11/06/2020 09:31:15 AM EDT [facility] E87.5 [id number] Hyperkalemia Problem 04/29/2021 12:00:00 AM EDT eCW1 ([facility]) Z01.810 Preoperative cardiovascular examination Preoperative cardiovascular examination [id number] 03/27/2021 12:00:00 AM EDT [facility] D63.8 [id number] Anemia in chronic illness Problem 01/16/2021 12:00:00 AM EDT eCW1 ([facility]) [id number] Essential hypertension Essential hypertension Problem 11/29/2020 12:00:00 AM EDT MARÍTN ([facility] I25.10 Atherosclerosis of [place] co ronary artery of [place] heart without angina pectoris Atherosclerosis of [place] coronary arter y of [place] heart without angina pectoris [id number] 11/06/2020 12:00:00 AM EDT [facility] I10 Hypertension Hypertension [id number] 11/06/2020 12:00:00 A M EDT [facility] N18.9 Chronic kidney disease Chronic kidney disease [id number] 11/06/2020 12:00:00 AM EDT [facility] Q21.1 Atrial septal defect, secundum Atrial septal defect, s ecundum [id number] 11/06/2020 12:00:00 AM EDT [facility] I33.0 Subacute bacterial endocarditis Subacute bacterial end ocarditis [id number] 11/06/2020 12:00:00 AM EDT [facility] D50.0 [id number] Iron deficiency anemia due to chronic blo od loss Problem 11/04/2020 12:00:00 AM EDT eCW1 ([facility]) A49.01 [id number] MSSA (methicillin susceptible Staphylococ cus aureus) Problem 10/21/2020 12:00:00 AM EDT eCW1 ([facility]) I35.8 [id number] Aortic valve endocarditis Problem 10/21/2020 12:00:00 AM EDT eCW1 ([facility]) I10 [id number] Essential (primary) hypertension Problem 10/21/2020 12:00:00 AM EDT eCW1 ([facility]) T84.59XD [id number] 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, subsequent encounter Problem 10/21/2020 12:00:00 A M EDT eCW1 ([facility]) Z96.659 [id number] Presence of unspecified artificial knee j oint Problem 10/21/2020 12:00:00 AM EDT eCW1 ([facility]) M51.36 [id number] DDD (degenerative disc disease), lumbar P roblem 10/21/2020 12:00:00 AM EDT eCW1 ([facility]) Z47.1 Aftercare following bilateral knee joint replacement surgery Aftercare following bilateral knee joint replacement surgery [id number] 12:00:00 AM EDT [facility] Surgeries/Procedures Procedure Description Date Indications Data Source(s) OFFICE OUTPATIENT VISIT 25 MINUTES 04/30/2021 12:00:00 AM EDT [facility] ) OFFICE OUTPATIENT VISIT 10 MINUTES 04/25/2021 12:00:00 AM EDT [facility] ) Imm: Flublok Quadrivalent 18 years & older 0.5mL IM Influenz a 04/21/2021 12:00:00 AM EDT eC ([facility]) OFFICE OUTPATIENT VISIT 25 MINUTES 04/14/2021 12:00:00 AM EDT [facility] ) REVJ TOT KNEE ARTHRP FEM&ENTIRE TIBIAL COMPONENT 04/09 12:00:00 AM EDT [facility] ) OFFICE OUTPATIENT VISIT 15 MINUTES 04/08/2021 12:00:00 AM EDT [facility] ([facility]) OFFICE OUTPATIENT VISIT 25 MINUTES 03/06/2021 12:00:00 AM EDT [facility] ([facility]) OFFICE OUTPATIENT VISIT 25 MINUTES 03/03/2021 12:00:00 AM EDT [facility] ([facility]) OFFICE OUTPATIENT VISIT 25 MINUTES 02/24/2021 12:00:00 AM EDT [facility]) OFFICE OUTPATIENT VISIT 15 MINUTES 01/24/2021 12:00:00 AM EDT [facility] ([facility]) Insertion, Non-Biodegradable Drug Delivery Implant 12/10/2020 12:00:00 AM EDT [facility] ([facility]) RMVL PROSTH TOT KNEE PROSTH MMA W/WO INSJ SPACER 12/10 12:00:00 AM EDT [facility] ([facility]) OFFICE OUTPATIENT VISIT 25 MINUTES 12/06/2020 12:00:00 AM EDT [facility] ([facility]) OFFICE OUTPATIENT VISIT 25 MINUTES 11/29/2020 12:00:00 AM EDT [facility] ([facility]) ECG ROUTINE ECG W/LEAST 12 LDS W/I&R <td>POCT AMB EKG</td><td>Routine</td><td>11/06/2020 10:28 AM EDT</td><td> Subacute bacterial endocarditis Atrial septal defect, secundum</td><td> </td> 11/06/2020 02:28:00 PM EDT Atrial septal defect, secundumSubacute bacterial endoc [facility] Atrial septal defect, secundum Subacute bacterial endocarditis OFFICE OUTPATIENT VISIT 25 MINUTES 11/05/2020 12:00:00 AM EDT [facility] ([facility]) OFFICE OUTPATIENT NEW 30 MINUTES 10/16/2020 12:00:00 A M EDT [facility] ([facility]) Results ID Date Data Source [id number] 04/28/2021 10:22:00 AM EDT [facility]) Name Value Range Interpretation Code Description Data Deepika rce(s) Supporting Document(s) Glucose [Mass/volume] in Serum or Plasma 100 mg/dL 74-99 [facility] ([facility]) 100-125 mg/dL PRE-DIABETES/FASTING >126 mg/dL DIABETES/FASTING Urea nitrogen [Mass/volume] in Serum or Plasma 36 mg/dL 7-18 [facility] ([facility]) Creatinine 2.1 mg/dL 0.6-1.3 [facility] ([facility]) Sodium [Moles/volume] in Serum or Plasma 140 meq/L 136-145 [facility] ([facility]) Chloride [Moles/volume] in Serum or Plasma 104 meq/L 98-107 [facility] ([facility]) Potassium [Moles/volume] in Serum or Plasma 4.4 meq/L 3.5-5.1 [facility] ([facility]) Carbon dioxide, total [Moles/volume] in Serum or Plasma 28 meq/L 21 -32 [facility] ([facility]) Calcium [Mass/volume] in Serum or Plasma 9.6 mg/dL 8.5-10.1 [facility] ([facility]) Glomerular filtration rate/1.73 sq M pre dicted among blacks [Volume Rate/Area] in Serum or Plasma by Creatinine-based formula (MDRD) 38 mL/min [facility] <content>CHRONIC KIDNEY DISEASE STAGING PER NKF</content>
<content></content>
<content>STAGE I & II GFR >= 60 NORMAL TO MILDLY DECREASED</content>
<content>STAGE III GFR 30-59 MODERATELY DECREASED</content>
<content>STAGE IV GFR 15-29 SEVERELY DECREASED</content>
<content>STAGE V GFR <15 VERY LITTLE GFR LEFT</content>
<content>ESRD GFR <15 ON MACHINE CHOCOLATE MOLDER</content>
<content></content> Glomerular filtration rate/1.73 sq M pre dicted among non-blacks [Volume Rate/Area] in Serum or Plasma by Creatinine-based formula (MDRD) 31 mL/min [facility] ([facility]) ID Date Data Source [id number] 04/21/2021 02:05:00 PM EDT [facility] ([facility]) Name Value Range Interpretation Code Description Data Deepika rce(s) Supporting Document(s) Ferritin [Mass/volume] in Serum or Plasma 188 ng/mL 26-388 [facility] ([facility]) ID Date Data Source [id number] 04/21/2021 02:05:00 PM EDT [facility] ([facility]) Name Value Range Interpretation Code Description Data Deepika rce(s) Supporting Document(s) Iron (Fe) 53 ug/dL 65-175 [facility] Total Iron Binding Capacity 220 ug/dL 250-450 [place] [facility] ([facility]) Percent Saturation 24.1 % 19.7-50.0 [facility] ([facility]) ID Date Data Source [id number] 04/21/2021 02:05:00 PM EDT [facility] ([facility]) Name Value Range Interpretation Code Description Data Deepika rce(s) Supporting Document(s) C reactive protein [Mass/volume] in Serum or Plasma by High sensitivity method 2.11 mg/dL 0.00-0.30 [facility] ([facility] ) ID Date Data Source [id number] 04/21/2021 02:05:00 PM EDT [facility] ([facility]) Name Value Range Interpretation Code Description Data Deepika rce(s) Supporting Document(s) Urea nitrogen [Mass/volume] in Serum or Plasma 34 mg/dL 7-18 [facility] ([facility]) Glucose [Mass/volume] in Serum or Plasma 81 mg/dL 74-99 [facility] ([facility]) 100-125 mg/dL PRE-DIABETES/FASTING >126 mg/dL DIABETES/FASTING Potassium [Moles/volume] in Serum or Plasma 5.3 meq/L 3.5-5.1 [facility] ([facility]) NOTE: RESULT VERIFIED. NO VISIBLE HEMOLYSIS. Sodium [Moles/volume] in Serum or Plasma 138 meq/L 136-145 [facility] ([facility]) Creatinine 2.6 mg/dL 0.6-1.3 [facility] Carbon dioxide, total [Moles/volume] in Serum or Plasma 27 meq/L 21 -32 [facility] ([facility]) Calcium [Mass/volume] in Serum or Plasma 9.7 mg/dL 8.5-10.1 [facility] Chloride [Moles/volume] in Serum or Plasma 103 meq/L 98-107 [facility] ([facility]) Glomerular filtration rate/1.73 sq M pre dicted among blacks [Volume Rate/Area] in Serum or Plasma by Creatinine-based formula (MDRD) 29 mL/min [facility]) <content>CHRONIC KIDNEY DISEASE STAGING PER NKF</content>
<content></content>
<content>STAGE I & II GFR >= 60 NORMAL TO MILDLY DECREASED</content>
<content>STAGE III GFR 30-59 MODERATELY DECREASED</content>
<content>STAGE IV GFR 15-29 SEVERELY DECREASED</content>
<content>STAGE V GFR <15 VERY LITTLE GFR LEFT</content>
<content>ESRD GFR <15 ON MACHINE CHOCOLATE MOLDER</content>
<content></content> Glomerular filtration rate/1.73 sq M pre dicted among non-blacks [Volume Rate/Area] in Serum or Plasma by Creatinine-based formula (MDRD) 24 mL/min [facility] ([facility]) ID Date Data Source [id number] 04/21/2021 02:05:00 PM EDT [facility] ([facility]) Name Value Range Interpretation Code Description Data Deepika rce(s) Supporting Document(s) Erythrocyte sedimentation rate by Westergren method 57 mm/hr 0-15 [facility]) ID Date Data Source [id number] 04/21/2021 02:05:00 PM EDT [facility] ([facility]) Name Value Range Interpretation Code Description Data Deepika rce(s) Supporting Document(s) Leukocytes [#/volume] in Blood by Automated count 9.3 x10*3/UL 4.1-10 .9 [facility] Hematocrit [Volume Fraction] of Blood by Automated count 29.9 % 3 7.0-51.0 [facility] ([facility]) Erythrocytes [#/volume] in Blood by Automated count 3.20 x10*6/UL 4.2 0-6.30 [facility] ([facility]) Hemoglobin [Mass/volume] in Blood 10.3 g/dL 12.0-18.0 [facility] ([facility]) NOTE: RESULT VERIFIED. MCHC 34.4 g/dL 31.0-38.0 [facility] [facility] MCV 93.6 fL 80.0-97.0 [facility] [facility] MCH 32.2 pg 26.0-32.0 [facility] [facility] Erythrocyte distribution width [Ratio] by Automated count 13.0 % 11.6-13.7 [facility] ([facility]) MPV 8.0 FL 7.8-11.0 [facility] [facility] Platelets [#/volume] in Blood by Automated count 302 x10*3/UL 140-440 [facility] ([facility]) Mid % 4.8 % 1.7-9.3 [facility] [facility] Lymph % 15.8 % 10.0-58.5 [facility] [facility]) Lymph # 1.4 x10*3/UL 0.6-4.1 [facility] ([facility]) Neut % 79.4 % 37.0-92.0 [facility] [facility]) Mid # 0.5 x10*3/UL 0.1-0.6 [facility] ([facility]) Neut # 7.4 x10*3/UL 2.0-7.8 [facility] ([facility]) ID Date Data Source [id number] 04/04/2021 09:20:00 AM EDT [facility] Name Value Range Interpretation Code Description Data Deepika rce(s) Supporting Document(s) SARS-CoV-2 (COVID-19) RNA [Presence] in Respiratory specimen by JOAQUIM with probe detection Not Detected [facility] This lab was ordered by [facility] and reported by [facility]. ID Date Data Source [id number] 03/25/2021 02:23:00 PM EDT [facility] ([facility]) Name Value Range Interpretation Code Description Data Deepika rce(s) Supporting Document(s) Glucose [Mass/volume] in Serum or Plasma 91 mg/dL 74-99 [facility] ([facility]) 100-125 mg/dL PRE-DIABETES/FASTING >126 mg/dL DIABETES/FASTING Urea nitrogen [Mass/volume] in Serum or Plasma 38 mg/dL 7-18 [facility] ([facility]) Creatinine 2.6 mg/dL 0.6-1.3 [facility] ([facility] Sodium [Moles/volume] in Serum or Plasma 139 meq/L 136-145 [facility] ([facility]) Potassium [Moles/volume] in Serum or Plasma 4.3 meq/L 3.5-5.1 [facility] ([facility]) Chloride [Moles/volume] in Serum or Plasma 104 meq/L 98-107 [facility] ([facility]) Carbon dioxide, total [Moles/volume] in Serum or Plasma 25 meq/L 21 -32 [facility] ([facility]) Alkaline phosphatase isoenzyme [Units/volume] in Serum or Pl asma 104 mg/dL 46-116 [facility] Calcium [Mass/volume] in Serum or Plasma 9.4 mg/dL 8.5-10.1 [facility] Total Bilirubin 0.5 mg/dL 0.2-1.0 [facility] Alanine aminotransferase [Enzymatic activity/volume] in Seru m or Plasma 26 U/L 12-78 [facility] ([facility]) Aspartate aminotransferase [Enzymatic activity/volume] in Serum or Plasma 27 U/L 15-37 [facility] ([facility] ) Proteinase 3 Ab [Units/volume] in Serum 7.5 g/dL 6.4-8.2 [facility] ([facility]) Albumin [Mass/volume] in Serum or Plasma 3.4 g/dL 3.4-5.0 [facility] A/G Ratio 0.83 CALC 1.00-1.90 [facility] ([facility]) Glomerular filtration rate/1.73 sq M pre dicted among non-blacks [Volume Rate/Area] in Serum or Plasma by Creatinine-based formula (MDRD) 24 mL/min [facility] ([facility]) Glomerular filtration rate/1.73 sq M pre dicted among blacks [Volume Rate/Area] in Serum or Plasma by Creatinine-based formula (MDRD) 29 mL/min [facility] ([facility]) <content>CHRONIC KIDNEY DISEASE STAGING PER NKF</content>
<content></content>
<content>STAGE I & II GFR >= 60 NORMAL TO MILDLY DECREASED</content>
<content>STAGE III GFR 30-59 MODERATELY DECREASED</content>
<content>STAGE IV GFR 15-29 SEVERELY DECREASED</content>
<content>STAGE V GFR <15 VERY LITTLE GFR LEFT</content>
<content>ESRD GFR <15 ON MACHINE CHOCOLATE MOLDER</content>
<content></content> ID Date Data Source [id number] 03/25/2021 02:23:00 PM EDT [facility] ([facility]) Name Value Range Interpretation Code Description Data Deepika rce(s) Supporting Document(s) Erythrocytes [#/volume] in Blood by Automated count 3.20 x10*6/UL 4.2 0-6.30 [facility] [place] [facility] Leukocytes [#/volume] in Blood by Automated count 5.0 x10*3/UL 4.1-10 .9 [facility] ([facility]) Hematocrit [Volume Fraction] of Blood by Automated count 29.5 % 3 7.0-51.0 [facility] ([facility]) Hemoglobin [Mass/volume] in Blood 10.2 g/dL 12.0-18.0 [facility] ([facility]) NOTE: RESULT VERIFIED. MCH 31.7 pg 26.0-32.0 [facility] [facility]) MCHC 34.5 g/dL 31.0-38.0 [facility] ([place] [facility]) MCV 92.0 fL 80.0-97.0 [facility] ([place] [facility]) Erythrocyte distribution width [Ratio] by Automated count 12.0 % 11.6-13.7 [facility] ([facility]) Platelets [#/volume] in Blood by Automated count 194 x10*3/UL 140-440 [facility] ([facility]) MPV 8.5 FL 7.8-11.0 [facility] ([place] [facility]) Lymph % 23.9 % 10.0-58.5 [facility] ([place] [facility]) Lymph # 1.2 x10*3/UL 0.6-4.1 [facility] ([facility]) Mid % 8.1 % 1.7-9.3 [facility] ([place] [facility]) Neut % 68.0 % 37.0-92.0 [facility] ([place] [facility]) Mid # 0.4 x10*3/UL 0.1-0.6 [facility] ([facility]) Neut # 3.4 x10*3/UL 2.0-7.8 [facility] ([facility]) ID Date Data Source [id number] 03/07/2021 02:12:00 PM EDT [facility] ([facility]) Name Value Range Interpretation Code Description Data Deepika rce(s) Supporting Document(s) Erythrocyte sedimentation rate by Westergren method 106 mm/hr 0-20 [facility] ([facility]) ID Date Data Source [id number] 03/07/2021 02:12:00 PM EDT [facility] ([facility]) Name Value Range Interpretation Code Description Data Deepika rce(s) Supporting Document(s) Red Blood Count 2.94 10 4.30-6.10 [facility] ([facility]) White Blood Count 5.3 10 4.0-10.0 [facility] ([facility]) Hemoglobin 9.7 g/dL 13.5-17.5 [facility] ([facility]) Hematocrit 29.9 % 42.0-52.0 [facility] ([facility]) Mean Corpuscular Volume 101.7 fl 80.0-96.0 [facility] ([facility]) Mean Corpuscular Hemoglobin 33.0 pg 27.0-33.0 [facility] ([facility]) Mean Corpuscular HGB Conc 32.4 g/dL 32.0-36.5 [facility] NT ([facility]) Platelet Count, Automated 252 10 150-450 [facility] NT ([facility]) Neutrophils % 52.9 % 36.0-66.0 [facility] ([facility]) Red Cell Distribution Width 11.6 % 11.5-14.5 [facility] ([facility]) Lymph % 26.6 % 24.0-44.0 [facility] [facility] [place] % 11.0 % 2.0-8.0 [facility] [facility]) Eos % 8.7 % 0.0-3.0 [facility] [place] [facility]) Nucleated Red Blood Cell % 0.0 % 0-0 [facility] ([facility]) Baso % 0.2 % 0.0-1.0 [facility] ([place] [facility]) Immature Granulocyte % 0.6 % 0-3.0 [facility] ([facility]) Lymph # 1.4 10 1.5-5.0 [facility] [facility] Neutrophils # 2.8 10 1.5-8.5 [facility] ([facility]) [place] # 0.6 10 0.0-0.8 [facility] [facility]) Baso # 0.0 10 0.0-0.2 [facility] [facility]) Eos # 0.5 10 0.0-0.5 [facility] [facility] ID Date Data Source [id number] 03/07/2021 02:12:00 PM EDT [facility] ([facility]) Name Value Range Interpretation Code Description Data Deepika rce(s) Supporting Document(s) C reactive protein [Mass/volume] in Serum or Plasma by High sensitivity method 2.78 mg/dL 0.00-0.30 [facility] ([facility] ) ID Date Data Source [id number] 03/03/2021 02:47:00 PM EDT [facility] ([facility]) Name Value Range Interpretation Code Description Data Deepika rce(s) Supporting Document(s) Glucose [Mass/volume] in Serum or Plasma 102 mg/dL 74-99 [facility] ([facility]) 100-125 mg/dL PRE-DIABETES/FASTING >126 mg/dL DIABETES/FASTING Sodium [Moles/volume] in Serum or Plasma 137 meq/L 136-145 [facility] ([facility]) Creatinine 2.2 mg/dL 0.6-1.3 [facility] ([facility]) NOTE: RESULT VERIFIED. Urea nitrogen [Mass/volume] in Serum or Plasma 40 mg/dL 7-18 [facility] ([facility]) NOTE: RESULT VERIFIED. Potassium [Moles/volume] in Serum or Plasma 4.3 meq/L 3.5-5.1 [facility] ([facility]) Carbon dioxide, total [Moles/volume] in Serum or Plasma 28 meq/L 21 -32 [facility] ([facility]) Chloride [Moles/volume] in Serum or Plasma 102 meq/L 98-107 [facility] ([facility]) Alkaline phosphatase isoenzyme [Units/volume] in Serum or Pl asma 101 mg/dL 46-116 [facility] ([facility]) Calcium [Mass/volume] in Serum or Plasma 9.5 mg/dL 8.5-10.1 [facility] [facility] Total Bilirubin 0.5 mg/dL 0.2-1.0 [facility] ([facility]) Albumin [Mass/volume] in Serum or Plasma 3.1 g/dL 3.4-5.0 [facility] ([facility]) Aspartate aminotransferase [Enzymatic activity/volume] in Serum or Plasma 31 U/L 15-37 [facility] ([facility] ) Alanine aminotransferase [Enzymatic activity/volume] in Seru m or Plasma 28 U/L 12-78 [facility] ([facility]) Proteinase 3 Ab [Units/volume] in Serum 8.0 g/dL 6.4-8.2 [facility] ([facility]) A/G Ratio 0.63 CALC 1.00-1.90 [facility] ([facility]) Glomerular filtration rate/1.73 sq M pre dicted among blacks [Volume Rate/Area] in Serum or Plasma by Creatinine-based formula (MDRD) 36 mL/min [facility] [facility] <content>CHRONIC KIDNEY DISEASE STAGING PER NKF</content>
<content></content>
<content>STAGE I & II GFR >= 60 NORMAL TO MILDLY DECREASED</content>
<content>STAGE III GFR 30-59 MODERATELY DECREASED</content>
<content>STAGE IV GFR 15-29 SEVERELY DECREASED</content>
<content>STAGE V GFR <15 VERY LITTLE GFR LEFT</content>
<content>ESRD GFR <15 ON MACHINE CHOCOLATE MOLDER</content>
<content></content> Glomerular filtration rate/1.73 sq M pre dicted among non-blacks [Volume Rate/Area] in Serum or Plasma by Creatinine-based formula (MDRD) 29 mL/min [facility] [facility] ID Date Data Source [id number] 03/03/2021 02:47:00 PM EDT [facility] Name Value Range Interpretation Code Description Data Deepika rce(s) Supporting Document(s) Leukocytes [#/volume] in Blood by Automated count 5.9 x10*3/UL 4.1-10 .9 [facility] [facility] NOTE: CBC VERIFIED Erythrocytes [#/volume] in Blood by Automated count 2.95 x10*6/UL 4.2 0-6.30 [facility] [facility] MCV 94.2 fL 80.0-97.0 [facility] ([facility]) Hematocrit [Volume Fraction] of Blood by Automated count 27.8 % 3 7.0-51.0 [facility] [facility] MCH 33.8 pg 26.0-32.0 [facility] ([facility]) Hemoglobin [Mass/volume] in Blood 10.0 g/dL 12.0-18.0 [facility] ([facility]) MCHC 35.9 g/dL 31.0-38.0 [facility] Erythrocyte distribution width [Ratio] by Automated count 12.1 % 11.6-13.7 [facility] ([facility]) Platelets [#/volume] in Blood by Automated count 188 x10*3/UL 140-440 [facility] ([facility]) MPV 8.2 FL 7.8-11.0 [facility] [facility]) Lymph % 16.7 % 10.0-58.5 [facility] [facility] Lymph # 0.9 x10*3/UL 0.6-4.1 [facility] ([facility]) Mid % 4.8 % 1.7-9.3 [facility] [facility]) Neut % 78.5 % 37.0-92.0 [facility] ([place] [facility]) Neut # 4.6 x10*3/UL 2.0-7.8 [facility] ([facility]) Mid # 0.4 x10*3/UL 0.1-0.6 [facility] ([facility]) ID Date Data Source ERYTHROCYTE SEDIMENTATION RATE 02/17/2021 12:00:00 AM EDT eC W1 ([facility]) Name Value Range Interpretation Code Description Data Deepika rce(s) Supporting Document(s) 63 0-20 ERYTHROCYTE SEDIMENTATION RATE eCW1 ([facility]) ID Date Data Source C REACTIVE PROTEIN QUANTITATIV (At [facility]) 02/17/2021 12:00 :00 AM EDT eCW1 ([facility]) Name Value Range Interpretation Code Description Data Deepika rce(s) Supporting Document(s) 0.68 0.00-0.30 C REACTIVE PROTEIN QUANTI TATIV eCW1 ([facility]) ID Date Data Source CBC with Differential 02/17/2021 12:00:00 AM EDT eCW1 ([facility]) Name Value Range Interpretation Code Description Data Deepika rce(s) Supporting Document(s) 9.8 13.5-17.5 HEMOGLOBIN eCW1 ([facility]) 5.6 4.0-10.0 WHITE BLOOD COUNT eCW1 ([facility]) 2.97 4.30-6.10 RED BLOOD COUNT eCW1 ([facility]) 33.0 27.0-33.0 MEAN CORPUSCULAR HEMOGLOB IN eCW1 ([facility]) 104.4 80.0-96.0 MEAN CORPUSCULAR VOLUME e CW1 ([facility]) 31.6 32.0-36.5 MEAN CORPUSCULAR HGB CONC eCW1 ([facility]) 31.0 42.0-52.0 HEMATOCRIT eCW1 ([facility]) 12.6 11.5-14.5 RED CELL DISTRIBUTION WID TH eCW1 ([facility]) 59.8 36.0-66.0 NEUTROPHILS % eCW1 ([facility]) 179 150-450 PLATELET COUNT, AUTOMATED eCW1 ([facility]) 8.0 0.0-3.0 EOS % eCW1 ([facility]) 22.9 24.0-44.0 LYMPH % eCW1 ([facility]) 8.6 2.0-8.0 MONO % eCW1 ([facility]) 0.5 0.0-1.0 BASO % eCW1 ([facility]) 1.3 1.5-5.0 LYMPH # eCW1 ([facility]) 0.5 0.0-0.8 MONO # eCW1 ([facility]) 3.4 1.5-8.5 NEUTROPHILS # eCW1 ([facility]) 0.5 0.0-0.5 EOS # eCW1 ([facility]) 0.0 0.0-0.2 BASO # eCW1 ([facility]) ID Date Data Source [id number] 12/05/2020 11:45:00 AM EDT [facility] Name Value Range Interpretation Code Description Data Deepika rce(s) Supporting Document(s) SARS-CoV-2 (COVID-19) RNA [Presence] in Respiratory specimen by JOAQUIM with probe detection Not Detected [facility] This lab was ordered by [facility] and reported by [facility]. ID Date Data Source [id number] 11/15/2020 09:47:00 AM EDT [facility] ([facility]) Name Value Range Interpretation Code Description Data Deepika rce(s) Supporting Document(s) Urea nitrogen [Mass/volume] in Serum or Plasma 29 mg/dL 7-18 [facility] ([facility]) Creatinine 2.5 mg/dL 0.6-1.3 [facility] ([facility]) NOTE: RESULT VERIFIED. Glucose [Mass/volume] in Serum or Plasma 107 mg/dL 74-99 [facility] ([facility]) 100-125 mg/dL PRE-DIABETES/FASTING >126 mg/dL DIABETES/FASTING Sodium [Moles/volume] in Serum or Plasma 141 meq/L 136-145 [facility] ([facility]) Potassium [Moles/volume] in Serum or Plasma 4.0 meq/L 3.5-5.1 [facility] ([facility]) Carbon dioxide, total [Moles/volume] in Serum or Plasma 26 meq/L 21 -32 [facility] ([facility]) Chloride [Moles/volume] in Serum or Plasma 103 meq/L 98-107 [facility] ([facility]) Calcium [Mass/volume] in Serum or Plasma 9.3 mg/dL 8.5-10.1 [facility] ([facility]) Glomerular filtration rate/1.73 sq M pre dicted among blacks [Volume Rate/Area] in Serum or Plasma by Creatinine-based formula (MDRD) 31 mL/min [facility] ([facility]) <content>CHRONIC KIDNEY DISEASE STAGING PER NKF</content>
<content></content>
<content>STAGE I & II GFR >= 60 NORMAL TO MILDLY DECREASED</content>
<content>STAGE III GFR 30-59 MODERATELY DECREASED</content>
<content>STAGE IV GFR 15-29 SEVERELY DECREASED</content>
<content>STAGE V GFR <15 VERY LITTLE GFR LEFT</content>
<content>ESRD GFR <15 ON MACHINE CHOCOLATE MOLDER</content>
<content></content> Glomerular filtration rate/1.73 sq M pre dicted among non-blacks [Volume Rate/Area] in Serum or Plasma by Creatinine-based formula (MDRD) 25 mL/min [facility] ([facility]) ID Date Data Source [id number] 11/11/2020 10:04:00 AM EDT [facility] ([facility]) Name Value Range Interpretation Code Description Data Deepika rce(s) Supporting Document(s) Glucose [Mass/volume] in Serum or Plasma 134 mg/dL 74-99 [facility] ([facility]) 100-125 mg/dL PRE-DIABETES/FASTING >126 mg/dL DIABETES/FASTING Urea nitrogen [Mass/volume] in Serum or Plasma 24 mg/dL 7-18 [facility] ([facility]) Sodium [Moles/volume] in Serum or Plasma 141 meq/L 136-145 [facility] ([facility]) Creatinine 2.4 mg/dL 0.6-1.3 [facility] Chloride [Moles/volume] in Serum or Plasma 101 meq/L 98-107 [facility] ([facility]) Potassium [Moles/volume] in Serum or Plasma 3.9 meq/L 3.5-5.1 [facility] ([facility]) Carbon dioxide, total [Moles/volume] in Serum or Plasma 28 meq/L 21 -32 [facility] ([facility]) Glomerular filtration rate/1.73 sq M pre dicted among non-blacks [Volume Rate/Area] in Serum or Plasma by Creatinine-based formula (MDRD) 27 mL/min [facility] ([facility]) Calcium [Mass/volume] in Serum or Plasma 9.4 mg/dL 8.5-10.1 [facility] ([facility]) Glomerular filtration rate/1.73 sq M pre dicted among blacks [Volume Rate/Area] in Serum or Plasma by Creatinine-based formula (MDRD) 32 mL/min [facility] ([facility]) <content>CHRONIC KIDNEY DISEASE STAGING PER NKF</content>
<content></content>
<content>STAGE I & II GFR >= 60 NORMAL TO MILDLY DECREASED</content>
<content>STAGE III GFR 30-59 MODERATELY DECREASED</content>
<content>STAGE IV GFR 15-29 SEVERELY DECREASED</content>
<content>STAGE V GFR <15 VERY LITTLE GFR LEFT</content>
<content>ESRD GFR <15 ON MACHINE CHOCOLATE MOLDER</content>
<content></content> ID Date Data Source [id number] 11/05/2020 09:33:00 AM EDT [facility] ([facility]) Name Value Range Interpretation Code Description Data Deepika rce(s) Supporting Document(s) Glucose [Mass/volume] in Serum or Plasma 121 mg/dL 74-99 [facility] ([facility]) 100-125 mg/dL PRE-DIABETES/FASTING >126 mg/dL DIABETES/FASTING Sodium [Moles/volume] in Serum or Plasma 139 meq/L 136-145 [facility] ([facility]) Urea nitrogen [Mass/volume] in Serum or Plasma 41 mg/dL 7-18 [facility] ([facility]) Creatinine 3.1 mg/dL 0.6-1.3 [facility] ([facility]) Carbon dioxide, total [Moles/volume] in Serum or Plasma 30 meq/L 21 -32 [facility] ([facility]) Chloride [Moles/volume] in Serum or Plasma 98 meq/L 98-107 [facility] ([facility]) Potassium [Moles/volume] in Serum or Plasma 3.3 meq/L 3.5-5.1 [facility] ([facility]) Calcium [Mass/volume] in Serum or Plasma 9.1 mg/dL 8.5-10.1 [facility] ([facility]) Glomerular filtration rate/1.73 sq M pre dicted among blacks [Volume Rate/Area] in Serum or Plasma by Creatinine-based formula (MDRD) 24 mL/min [facility] ([facility]) <content>CHRONIC KIDNEY DISEASE STAGING PER NKF</content>
<content></content>
<content>STAGE I & II GFR >= 60 NORMAL TO MILDLY DECREASED</content>
<content>STAGE III GFR 30-59 MODERATELY DECREASED</content>
<content>STAGE IV GFR 15-29 SEVERELY DECREASED</content>
<content>STAGE V GFR <15 VERY LITTLE GFR LEFT</content>
<content>ESRD GFR <15 ON MACHINE CHOCOLATE MOLDER</content>
<content></content> Glomerular filtration rate/1.73 sq M pre dicted among non-blacks [Volume Rate/Area] in Serum or Plasma by Creatinine-based formula (MDRD) 20 mL/min [facility] [facility] ID Date Data Source [id number] 11/05/2020 09:33:00 AM EDT [facility] Name Value Range Interpretation Code Description Data Deepika rce(s) Supporting Document(s) Leukocytes [#/volume] in Blood by Automated count 5.3 x10*3/UL 4.1-10 .9 [facility] ([facility]) Hemoglobin [Mass/volume] in Blood 11.2 g/dL 12.0-18.0 [facility] [facility] NOTE: RESULT VERIFIED. Erythrocytes [#/volume] in Blood by Automated count 3.51 x10*6/UL 4.2 0-6.30 [facility] [facility] Hematocrit [Volume Fraction] of Blood by Automated count 32.6 % 3 7.0-51.0 [facility] [facility] MCH 31.8 pg 26.0-32.0 [facility] [facility]) MCV 92.7 fL 80.0-97.0 [facility] ([facility]) Platelets [#/volume] in Blood by Automated count 301 x10*3/UL 140-440 [facility] [facility] Erythrocyte distribution width [Ratio] by Automated count 13.8 % 11.6-13.7 [facility] [facility] MCHC 34.3 g/dL 31.0-38.0 [facility] ([place] [facility]) MPV 7.9 FL 7.8-11.0 [facility] ([place] [facility]) Mid % 5.0 % 1.7-9.3 [facility] [facility] Lymph % 16.1 % 10.0-58.5 [facility] [facility]) Neut % 78.9 % 37.0-92.0 [facility] [facility] Lymph # 0.8 x10*3/UL 0.6-4.1 [facility] ([facility]) Mid # 0.3 x10*3/UL 0.1-0.6 [facility] ([facility]) Neut # 4.2 x10*3/UL 2.0-7.8 [facility] ([facility]) ID Date Data Source [id number] 10/28/2020 10:42:00 PM EDT [facility] ([facility]) Name Value Range Interpretation Code Description Data Deepika rce(s) Supporting Document(s) Influenza A Amplification Laboratory test result [facility] ([facility]) Negative results do not preclude influen za or RSV virus infection and should not be used as the sole basis for treatment or other patient management decisions. Influenza B Amplification Laboratory test result [facility] ([facility]) Negative results do not preclude influen za or RSV virus infection and should not be used as the sole basis for treatment or other patient management decisions. RSV Amplification Laboratory test result [facility] ([facility]) Negative results do not preclude influen za or RSV virus infection and should not be used as the sole basis for treatment or other patient management decisions. Laboratory test finding (navigational concept) Laboratory test result [facility] ([facility]) A false negative result may occur if a s pecimen is improperly collected, transported or handled. False [...] pathogens. DISCLAIMER: Testing was performed using the [employer] SARS-CoV-2 test. This test was developed and its performance characteristics determined by [employer]. This test has not been FDA cleared [...] the authorization is terminated or revoked sooner. ID Date Data Source [id number] 10/28/2020 10:42:00 PM EDT [facility] Name Value Range Interpretation Code Description Data [facility] Supporting Document(s) SARS coronavirus 2 RNA [Presence] in Res piratory specimen by JOAQUIM with probe detection NEGATIVE [facility] This lab was ordered by [facility] a nd reported by [facility]. ID Date Data Source [id number] 10/28/2020 09:09:00 PM EDT [facility] ([facility]) Name Value Range Interpretation Code Description Data [facility] rce(s) Supporting Document(s) White Blood Count 5.0 10 4.0-10.0 [facility] ([facility]) Red Blood Count 2.03 10 4.30-6.10 [facility] ([facility]) Hemoglobin 6.5 g/dL 13.5-17.5 Below lower panic limits [facility] ([facility]) Hematocrit 20.9 % 42.0-52.0 [facility] ([facility]) Mean Corpuscular Volume 103.0 fl 80.0-96.0 [facility] ([facility]) Mean Corpuscular HGB Conc 31.1 g/dL 32.0-36.5 MED[facility] NT ([facility]) Red Cell Distribution Width 15.0 % 11.5-14.5 [facility] ([facility]) Mean Corpuscular Hemoglobin 32.0 pg 27.0-33.0 [facility] ([facility]) Platelet Count, Automated 203 10 150-450 MEDE NT ([facility]) Neutrophils % 64.2 % 36.0-66.0 [facility] ([facility]) Lymph % 16.4 % 24.0-44.0 [facility] [facility]) Eos % 7.3 % 0.0-3.0 [facility] [facility] [place] % 11.1 % 2.0-8.0 [facility] [facility] Baso % 0.4 % 0.0-1.0 [facility] [facility] Nucleated Red Blood Cell % 0.0 % 0-0 MED [facility] ([facility] [facility]) Immature Granulocyte % 0.6 % 0-3.0 [facility] ([facility]) Neutrophils # 3.2 10 1.5-8.5 [facility] ([facility]) [place] # 0.6 10 0.0-0.8 [facility] [facility] Lymph # 0.8 10 1.5-5.0 [facility] [facility] Eos # 0.4 10 0.0-0.5 [facility] [facility] Baso # 0.0 10 0.0-0.2 [facility] [facility] ID Date Data Source [id number] 10/28/2020 07:06:00 PM EDT [facility] ([facility]) Name Value Range Interpretation Code Description Data Deepika rce(s) Supporting Document(s) Laboratory test finding (navigational concept) 24.0 % 38.0-51.0 [facility] ([facility]) Laboratory test finding (navigational concept) 123 mg/dL 70-105 [facility] ([facility]) Laboratory test finding (navigational concept) 143 meq/L 136-145 [facility] ([facility]) Laboratory test finding (navigational concept) 3.4 meq/L 3.5-5.1 [facility] ([facility]) Laboratory test finding (navigational concept) 106 meq/L 98-109 [facility] ([facility]) Laboratory test finding (navigational concept) 28.0 MM/L 23.0-27.0 [facility] ([facility]) Laboratory test finding (navigational concept) 4.8 mg/dL 4.5-5.3 [facility] ([facility]) Laboratory test finding (navigational concept) 2.5 mg/dL 0.6-1.3 [facility]) Laboratory test finding (navigational concept) 25 mg/dL 8-26 [facility]) ID Date Data Source [id number] 10/28/2020 06:48:00 PM EDT [facility] ([facility]) Name Value Range Interpretation Code Description Data Deepika rce(s) Supporting Document(s) Prothrombin Time 14.8 s 12.5-14.3 [facility]) Inr 1.13 [facility] ([place] [facility]) THERAPUTIC HUMAN INR VALUES INDICATIONS NORMAL RANGES PROPHYLAXIS/TREATMENT OF: VENOUS THROMBOSIS 2.0-3.0 PULMONARY EMBOLISM 2.0-3.0 PREVENTION OF SYSTEMIC EMBOLISM FROM: TISSUE HEART VALVES 2.0-3.0 ACUTE MYOCARDIAL INFARCTION 2.0-3.0 VALVULAR HEART DISEASE 2.0-3.0 ATRIAL FIBRILLATION 2.0-3.0 MECHANICAL VALVES(HIGH RISK) 2.5-3.5 RECURRENT MYOCARDIAL INFARCTION 2.5-3.5 ID Date Data Source [id number] 10/28/2020 06:48:00 PM EDT [facility] ([facility]) Name Value Range Interpretation Code Description Data Deepika rce(s) Supporting Document(s) Hemoglobin 7.9 g/dL 13.5-17.5 [facility] ([facility]) Red Blood Count 2.42 10 4.30-6.10 [facility] ([facility]) White Blood Count 5.9 10 4.0-10.0 [facility] ([facility]) Mean Corpuscular Volume 103.7 fl 80.0-96.0 [facility] Hematocrit 25.1 % 42.0-52.0 [facility] Mean Corpuscular Hemoglobin 32.6 pg 27.0-33.0 [place] [facility] ([facility]) Platelet Count, Automated 231 10 150-450 MED[facility] NT ([facility]) Mean Corpuscular HGB Conc 31.5 g/dL 32.0-36.5 [facility] NT ([facility]) Red Cell Distribution Width 14.9 % 11.5-14.5 [facility] ([facility]) [place] % 10.1 % 2.0-8.0 [facility] [facility] Lymph % 16.2 % 24.0-44.0 [facility] [facility] Neutrophils % 65.7 % 36.0-66.0 [facility] ([facility]) Immature Granulocyte % 0.3 % 0-3.0 [facility] ([facility]) Eos % 7.2 % 0.0-3.0 [facility] [facility] Baso % 0.5 % 0.0-1.0 [facility] ([place] [facility]) Nucleated Red Blood Cell % 0.0 % 0-0 [facility] ([facility]) Neutrophils # 3.9 10 1.5-8.5 [facility] ([facility]) Lymph # 1.0 10 1.5-5.0 [facility] ([place] [facility]) [place] # 0.6 10 0.0-0.8 [facility] ([place] [facility]) Eos # 0.4 10 0.0-0.5 [facility] ([place] [facility]) Baso # 0.0 10 0.0-0.2 [facility] ([place] [facility]) ID Date Data Source [id number] 10/28/2020 06:48:00 PM EDT [facility] ([facility]) Name Value Range Interpretation Code Description Data Deepika rce(s) Supporting Document(s) Packed Cells Laboratory test result [facility] NT ([facility] TRANSFUSED PRODUCT: PACKED CELLS COUNT: 1 ID Date Data Source [id number] 10/28/2020 06:48:00 PM EDT [facility] ([facility]) Name Value Range Interpretation Code Description Data Deepika rce(s) Supporting Document(s) Blood Type Laboratory test result [facility] ([facility]) AB Screen (Indirect Sloan)Vis Laboratory test result [facility] ([facility]) ID Date Data Source [id number] 10/28/2020 06:48:00 PM EDT [facility] ([facility]) Name Value Range Interpretation Code Description Data Deepika rce(s) Supporting Document(s) Lipoprotein lipase [Enzymatic activity/volume] in Serum or P lasma 315 U/L 73-393 [facility] ([facility]) Thyrotropin [Units/volume] in Serum or Plasma by Detec tion limit <= 0.05 mIU/L 1.750 uIU/ML 0.358-3.740 [facility] ([facility] Thyroxine (T4) free [Mass/volume] in Serum or Plasma 0.71 ng/dL 0.76- 1.46 [facility] ([facility] ID Date Data Source [id number] 10/28/2020 06:48:00 PM EDT [facility] ([facility]) Name Value Range Interpretation Code Description Data Deepika rce(s) Supporting Document(s) Creatinine For GFR 2.18 mg/dL 0.70-1.30 [facility] ([facility]) Blood Urea Nitrogen 27 mg/dL 7-18 [facility] ([facility]) Glucose, Fasting 133 mg/dL 70-100 [facility] ([facility]) Glomerular Filtration Rate 31.7 MED E[facility] ([facility]) <content>Units are mL/min/1.73 m2</content>
<content></content>
<content>Chronic Kidney Disease Staging per NKF:</content>
<content></content>
<content>Stage I & II GFR >=60 Normal to Mildly Decreased</content>
<content>Stage III GFR 30- 59 Moderately Decreased</content>
<content>Stage IV GFR 15-29 Severely Decreased</content>
<content>Stage V GFR <15 Very Little GFR Left</content>
<content>ESRD GFR <15 on MACHINE CHOCOLATE MOLDER</content>
<content></content> Sodium Level 145 meq/L 136-145 [facility] ([facility]) Potassium Serum 3.5 meq/L 3.5-5.1 [facility] ([facility]) Chloride Level 108 meq/L 98-107 [facility] ([facility]) Calcium Level 9.0 mg/dL 8.8-10.2 [facility] ([facility]) Anion Gap 8 meq/L 8-16 [facility] ([place] [facility]) Carbon Dioxide Level 29 meq/L 21-32 [facility] ([facility]) ID Date Data Source [id number] 10/28/2020 06:48:00 PM EDT [facility] ([facility]) Name Value Range Interpretation Code Description Data Deepika rce(s) Supporting Document(s) Alt/SGPT 14 U/L 12-78 [facility] ([facility]) Ast/Sgot 20 U/L 7-37 [facility] ([facility]) Alkaline Phosphatase 99 U/L 45-117 [facility] ([facility]) Bilirubin,Total 1.2 mg/dL 0.2-1.0 [facility] ([facility]) Bilirubin,Direct 0.1 mg/dL 0.0-0.2 [facility] ([facility]) Total Protein 7.3 GM/DL 6.4-8.2 [facility] ([facility]) Albumin 2.1 GM/DL 3.2-5.2 [facility] ([facility]) Albumin/Globulin Ratio 0.4 [facility] ([facility]) ID Date Data Source [id number] 10/28/2020 06:48:00 PM EDT [facility] ([facility]) Name Value Range Interpretation Code Description Data Deepika e(s) Supporting Document(s) CPK Creatine Phosphokinase 136 U/L 39-308 [facility] ([facility]) Troponin I Laboratory test result [facility] ([facility]) <content>Troponin I Reference Interval f or Siemens Broughton LOCI:</content>
<content></content>
<content>99th Percentile= 0.00-0.045 ng/ml</content>
<content></content>
<content>Risk Stratification:</content>
<content><= 0.10 ng/ml Decreased Risk for Adverse Clinical</content>
<content>Events.</content>
<content>0.10-1.50 ng/ml Increased Risk for Adverse Clinical</content>
<content>Events. Evaluation of additional</content>
<content>criterion and/or repeat testing in 2-6</content>
<content>hours is suggested to rule out myocardial</content>
<content>damage.</content>
<content>>= 1.50 ng/ml Indicative of Myocardial Injury.</content>
<content></content> MB/CK Relative Index 2.35 [facility]) <content>DIAGNOSIS CRITERIA</content>
<content>MMB ng/ml Relative Index (RI)</content>
<content>NON-AMI < or = 5 N/A</content>
<content>PHELPS ZONE > 5 < or = 4</content>
<content>AMI > 5 > 4</content>
<content></content> CK-MB Value Mass 3.2 ng/mL [facility] ([facility]) ID Date Data Source [id number] 10/28/2020 06:48:00 PM EDT [facility]) Name Value Range Interpretation Code Description Data Deepika rce(s) Supporting Document(s) aPTT in Blood by Coagulation assay 43.9 s 24.2-38.5 [facility]) ID Date Data Source [id number] 10/02/2020 12:29:00 PM EST [facility]) Name Value Range Interpretation Code Description Data Deepika rce(s) Supporting Document(s) Appearance, Urine RFX Laboratory test result [facility] Color, Urine RFX Laboratory test result [facility] ([facility]) PH,Urine RFX 6.0 units 5.0-9.0 [facility] ([facility] Specific [place] Ur Auto RFX 1.018 1.002-1.035 [facility] ([facility] Protein, Urine Auto RFX Laboratory test result [facility] ([facility]) Glucose, Urine (Ua) Auto RFX Laboratory test result [facility] ([facility]) Ketone, Urine Auto RFX Laboratory test result [facility] ([facility]) Urobilinogen, Urine Auto RFX 0.2 mg/dL 0.0-2.0 [facility] ([facility]) Bilirubin, Urine Auto RFX Laboratory test result [facility] ([facility]) Nitrite, Urine Auto RFX Laboratory test result [facility] ([facility]) Leukocyte Esterase Ur Auto RFX Laboratory test result [facility] ([facility]) WBC, Urine Auto RFX 1 /HPF 0-3 [facility] Blood, Urine Blood RFX Laboratory test result [facility] ([facility]) RBC, Urine Auto RFX 11 /HPF 0-3 [facility] ([facility]) Bacteria, Urine Auto RFX Laboratory test result [facility] ([facility]) Squam Epithelial Cell Ur Aurfx 0 /HPF 0-6 [facility] ([facility]) Hyaline Cast, Urine Auto RFX 0 /LPF 0-1 M [facility] ([facility]) ID Date Data Source [id number] 10/02/2020 11:15:00 AM EST [facility] ([facility]) Name Value Range Interpretation Code Description Data Deepika rce(s) Supporting Document(s) Influenza A Amplification Laboratory test result [facility] ([facility]) Negative results do not preclude influen za or RSV virus infection and should not be used as the sole basis for treatment or other patient management decisions. Influenza B Amplification Laboratory test result [facility] ([facility]) Negative results do not preclude influen za or RSV virus infection and should not be used as the sole basis for treatment or other patient management decisions. RSV Amplification Laboratory test result [facility] ([facility]) Negative results do not preclude influen za or RSV virus infection and should not be used as the sole basis for treatment or other patient management decisions. Laboratory test finding (navigational concept) Laboratory test result [facility] ([facility]) A false negative result may occur if a s pecimen is improperly collected, transported or handled. False [...] pathogens. DISCLAIMER: Testing was performed using the [employer] SARS-CoV-2 test. This test was developed and its performance characteristics determined by [employer]. This test has not been FDA cleared [...] the authorization is terminated or revoked sooner. ID Date Data Source [id number] 10/02/2020 11:15:00 AM EST [facility] Name Value Range Interpretation Code Description Data Deepika rce(s) Supporting Document(s) SARS coronavirus 2 RNA [Presence] in Res piratory specimen by JOAQUIM with probe detection NEGATIVE [facility] This lab was ordered by [facility] a nd reported by [facility]. ID Date Data Source [id number] 10/02/2020 10:31:00 AM EST [facility] ([facility]) Name Value Range Interpretation Code Description Data Deepika rce(s) Supporting Document(s) Laboratory test finding (navigational concept) 119 mg/dL 70-105 [facility] ([facility]) Laboratory test finding (navigational concept) 31.0 % 38.0-51.0 [facility] ([facility]) Laboratory test finding (navigational concept) 136 meq/L 136-145 [facility] ([facility]) Laboratory test finding (navigational concept) 4.3 meq/L 3.5-5.1 [facility] ([facility]) Laboratory test finding (navigational concept) 4.7 mg/dL 4.5-5.3 [facility] ([facility]) Laboratory test finding (navigational concept) 103 meq/L 98-109 [facility] ([facility]) Laboratory test finding (navigational concept) 32 mg/dL 8-26 [facility] ([facility]) Laboratory test finding (navigational concept) 27.0 MM/L 23.0-27.0 [facility] ([facility]) Laboratory test finding (navigational concept) 2.6 mg/dL 0.6-1.3 [facility] ([facility]) ID Date Data Source [id number] 10/02/2020 10:26:00 AM EST [facility] ([facility]) Name Value Range Interpretation Code Description Data Deepika rce(s) Supporting Document(s) C reactive protein [Mass/volume] in Serum or Plasma by High sensitivity method 34.60 mg/dL 0.00-0.30 [facility] ([facility] Natriuretic peptide.B prohormone N-Terminal [Mass/volu me] in Serum or Plasma 1788 pg/mL [facility] ([facility] ID Date Data Source [id number] 10/02/2020 10:26:00 AM EST [facility] Name Value Range Interpretation Code Description Data Deepika rce(s) Supporting Document(s) CPK Creatine Phosphokinase 1108 U/L 39-308 [facility] ([facility] [facility]) MB/CK Relative Index 0.26 [facility] ([facility] <content>DIAGNOSIS CRITERIA</content>
<content>MMB ng/ml Relative Index (RI)</content>
<content>NON-AMI < or = 5 N/A</content>
<content>PHELPS ZONE > 5 < or = 4</content>
<content>AMI > 5 > 4</content>
<content></content> CK-MB Value Mass 2.9 ng/mL [facility] ([facility]) Troponin I 0.03 ng/mL [facility] ([facility] [facility]) <content>Troponin I Reference Interval f or Siemens Broughton LOCI:</content>
<content></content>
<content>99th Percentile= 0.00-0.045 ng/ml</content>
<content></content>
<content>Risk Stratification:</content>
<content><= 0.10 ng/ml Decreased Risk for Adverse Clinical</content>
<content>Events.</content>
<content>0.10-1.50 ng/ml Increased Risk for Adverse Clinical</content>
<content>Events. Evaluation of additional</content>
<content>criterion and/or repeat testing in 2-6</content>
<content>hours is suggested to rule out myocardial</content>
<content>damage.</content>
<content>>= 1.50 ng/ml Indicative of Myocardial Injury.</content>
<content></content> ID Date Data Source [id number] 10/02/2020 10:26:00 AM EST [facility] ([facility]) Name Value Range Interpretation Code Description Data Deepika rce(s) Supporting Document(s) Erythrocyte sedimentation rate by Westergren method 96 mm/hr 0-20 [facility] ([facility]) ID Date Data Source [id number] 10/02/2020 10:26:00 AM EST [facility] ([facility]) Name Value Range Interpretation Code Description Data Deepika rce(s) Supporting Document(s) White Blood Count 10.1 10 4.0-10.0 [facility] ([facility]) Hemoglobin 10.5 g/dL 13.5-17.5 [facility] Red Blood Count 3.27 10 4.30-6.10 [facility] ([facility]) Mean Corpuscular Volume 100.0 fl 80.0-96.0 [facility] Mean Corpuscular Hemoglobin 32.1 pg 27.0-33.0 [facility] ([facility]) Hematocrit 32.7 % 42.0-52.0 [facility] [facility] Red Cell Distribution Width 13.0 % 11.5-14.5 [facility] ([facility]) Mean Corpuscular HGB Conc 32.1 g/dL 32.0-36.5 MEDE NT ([facility]) Neutrophils % 84.5 % 36.0-66.0 [facility] ([facility]) Lymph % 6.3 % 24.0-44.0 [facility] ([place] [facility]) Platelet Count, Automated 129 10 150-450 [facility] NT ([facility]) [place] % 8.3 % 2.0-8.0 [facility] [facility] Eos % 0.0 % 0.0-3.0 [facility] ([place] [facility]) Immature Granulocyte % 0.7 % 0-3.0 [facility] ([facility]) Baso % 0.2 % 0.0-1.0 [facility] [facility]) Nucleated Red Blood Cell % 0.0 % 0-0 [facility] ([facility]) Neutrophils # 8.6 10 1.5-8.5 [facility] ([facility]) Lymph # 0.6 10 1.5-5.0 [facility] [facility] [place] # 0.8 10 0.0-0.8 [facility] ([place] [facility]) Eos # 0.0 10 0.0-0.5 [facility] [facility]) Baso # 0.0 10 0.0-0.2 [facility] ([place] [facility] ID Date Data Source [id number] 10/02/2020 10:26:00 AM EST [facility] ([facility]) Name Value Range Interpretation Code Description Data Deepika rce(s) Supporting Document(s) Lactate [Mass/volume] in Serum or Plasma 1.2 mmol/L 0.4-2.0 [facility] ([facility]) Y/N query for Sepsis Lactate Rule: Y ID Date Data Source [id number] 08/19/2020 08:47:00 AM EST [facility] ([facility]) Name Value Range Interpretation Code Description Data Deepika rce(s) Supporting Document(s) Ferritin [Mass/volume] in Serum or Plasma 76 ng/mL 26-388 [facility] ([facility]) ID Date Data Source [id number] 08/19/2020 08:47:00 AM EST [facility] ([facility]) Name Value Range Interpretation Code Description Data Deepika rce(s) Supporting Document(s) Iron (Fe) 118 ug/dL 65-175 [facility] [facility]) Total Iron Binding Capacity 274 ug/dL 250-450 [facility] ([facility] [facility]) Percent Saturation 43.1 % 19.7-50.0 [facility] ([facility]) ID Date Data Source [id number] 08/19/2020 08:47:00 AM EST [facility] ([facility]) Name Value Range Interpretation Code Description Data Deepika rce(s) Supporting Document(s) Glucose [Mass/volume] in Serum or Plasma 93 mg/dL 74-99 [facility] ([facility]) 100-125 mg/dL PRE-DIABETES/FASTING >126 mg/dL DIABETES/FASTING Creatinine 1.8 mg/dL 0.6-1.3 [facility] ([facility]) Urea nitrogen [Mass/volume] in Serum or Plasma 20 mg/dL 7-18 [facility] ([facility]) Sodium [Moles/volume] in Serum or Plasma 139 meq/L 136-145 [facility] ([facility]) Potassium [Moles/volume] in Serum or Plasma 4.3 meq/L 3.5-5.1 [facility] ([facility]) Chloride [Moles/volume] in Serum or Plasma 102 meq/L 98-107 [facility] ([facility]) Calcium [Mass/volume] in Serum or Plasma 9.1 mg/dL 8.5-10.1 [facility] ([facility]) Carbon dioxide, total [Moles/volume] in Serum or Plasma 30 meq/L 21 -32 [facility] ([facility]) Glomerular filtration rate/1.73 sq M pre dicted among non-blacks [Volume Rate/Area] in Serum or Plasma by Creatinine-based formula (MDRD) 37 mL/min [facility] ([facility]) Glomerular filtration rate/1.73 sq M pre dicted among blacks [Volume Rate/Area] in Serum or Plasma by Creatinine-based formula (MDRD) 45 mL/min [facility] ([facility]) <content>CHRONIC KIDNEY DISEASE STAGING PER NKF</content>
<content></content>
<content>STAGE I & II GFR >= 60 NORMAL TO MILDLY DECREASED</content>
<content>STAGE III GFR 30-59 MODERATELY DECREASED</content>
<content>STAGE IV GFR 15-29 SEVERELY DECREASED</content>
<content>STAGE V GFR <15 VERY LITTLE GFR LEFT</content>
<content>ESRD GFR <15 ON MACHINE CHOCOLATE MOLDER</content>
<content></content> ID Date Data Source [id number] 03/26/2020 10:09:38 AM EDT [facility] XR KNEE 4 OR MORE VIEWS [id number] RESUL TInterpreted by:Hubert Mac MDBILATERAL KNEESCLINICAL STATEMENT: Pain. Status post TKA. Follow-up. TECHNIQUE: 3 views of bilateral knees.COMPARISON: 02/20/2019.FINDINGS: Since the prior study, there has been no significant interval change. No acute fracture or dislocation is identified. The visualized soft tissues are within normal limits.The patient is again noted to be status post total bilateral knee arthroplasty. No suspicious periprosthetic lucency is seen, to suggest loosening and/or infection.IMPRESSION: Since 02/20/2019, No significant interval change.Status post total bilateral knee arthroplasty, with stable postoperative changes.This document has been electronically signed by Hubert Mac MD on 03/26/2020 10:07 AM Name Value Range Interpretation Code Description Data Deepika rce(s) Supporting Document(s) ID Date Data Source [id number] 03/25/2020 02:20:00 PM EDT [facility] Name Value Range Interpretation Code Description Data Deepika rce(s) Supporting Document(s) Glucose [Mass/volume] in Serum or Plasma 158 mg/dL 74-99 [facility] ([facility]) 100-125 mg/dL PRE-DIABETES/FASTING >126 mg/dL DIABETES/FASTING Urea nitrogen [Mass/volume] in Serum or Plasma 31 mg/dL 7-18 [facility]) NOTE: bun and creat verified Sodium [Moles/volume] in Serum or Plasma 143 meq/L 136-145 [facility] ([facility]) Creatinine 1.8 mg/dL 0.6-1.3 [facility] [facility] Potassium [Moles/volume] in Serum or Plasma 3.8 meq/L 3.5-5.1 [facility] ([facility]) Chloride [Moles/volume] in Serum or Plasma 105 meq/L 98-107 [facility] ([facility]) Carbon dioxide, total [Moles/volume] in Serum or Plasma 29 meq/L 21 -32 [facility] ([facility]) Calcium [Mass/volume] in Serum or Plasma 8.9 mg/dL 8.5-10.1 [facility] ([facility]) Glomerular filtration rate/1.73 sq M pre dicted among non-blacks [Volume Rate/Area] in Serum or Plasma by Creatinine-based formula (MDRD) 37 mL/min [facility] ([facility]) Glomerular filtration rate/1.73 sq M pre dicted among blacks [Volume Rate/Area] in Serum or Plasma by Creatinine-based formula (MDRD) 45 mL/min [facility] ([facility]) <content>CHRONIC KIDNEY DISEASE STAGING PER NKF</content>
<content></content>
<content>STAGE I & II GFR >= 60 NORMAL TO MILDLY DECREASED</content>
<content>STAGE III GFR 30-59 MODERATELY DECREASED</content>
<content>STAGE IV GFR 15-29 SEVERELY DECREASED</content>
<content>STAGE V GFR <15 VERY LITTLE GFR LEFT</content>
<content>ESRD GFR <15 ON MACHINE CHOCOLATE MOLDER</content>
<content></content> ID Date Data Source [id number] 03/25/2020 11:57:41 AM EDT [facility] Name Value Range Interpretation Code Description Data Deepika rce(s) Supporting Document(s) Progress Note [facility] [id number] [facility] [file] [id number] ID Date Data Source [id number] 03/12/2020 02:51:00 PM EDT [facility] ([facility]) Name Value Range Interpretation Code Description Data Deepika rce(s) Supporting Document(s) Cobalamin (Vitamin B12) [Mass/volume] in Serum or Plasma 809 pg/mL 2 47-911 [facility] ([facility]) VITAMIN B12 NORMAL RANGE NORMAL 247 - 911 PG/ML INDETERMINATE 211 - 246 PG/ML DEFICIENT LESS THAN 211 PG/ML Ferritin [Mass/volume] in Serum or Plasma 78 ng/mL 26-388 [facility] ([facility]) ID Date Data Source [id number] 03/12/2020 02:51:00 PM EDT [facility] ([facility]) Name Value Range Interpretation Code Description Data Deepika rce(s) Supporting Document(s) Iron (Fe) 59 ug/dL 65-175 [facility] [facility] Percent Saturation 20.6 % 19.7-50.0 [facility] ([facility]) Total Iron Binding Capacity 286 ug/dL 250-450 [facility] ([facility]) ID Date Data Source [id number] 03/12/2020 02:51:00 PM EDT [facility] ([facility]) Name Value Range Interpretation Code Description Data Deepika rce(s) Supporting Document(s) Cholesterol [Mass/volume] in Serum or Plasma 151 mg/dL 131-200 [facility] ([facility]) Triglyceride [Mass/volume] in Serum or Plasma 202 mg/dL 30-150 [facility] ([facility]) Cholesterol in LDL [Mass/volume] in Serum or Plasma by calcu lation 68 CALC 50-159 [facility] ([facility]) Cholesterol in HDL [Mass/volume] in Serum or Plasma 43 mg/dL 35-60 [facility] ([facility]) ID Date Data Source [id number] 03/12/2020 02:51:00 PM EDT [facility] ([facility]) Name Value Range Interpretation Code Description Data Deepika rce(s) Supporting Document(s) Urea nitrogen [Mass/volume] in Serum or Plasma 41 mg/dL 7-18 [facility] ([facility]) Glucose [Mass/volume] in Serum or Plasma 140 mg/dL 74-99 [facility] ([facility]) 100-125 mg/dL PRE-DIABETES/FASTING >126 mg/dL DIABETES/FASTING Sodium [Moles/volume] in Serum or Plasma 144 meq/L 136-145 [facility] ([facility]) Creatinine 2.2 mg/dL 0.6-1.3 [facility] ([facility] Potassium [Moles/volume] in Serum or Plasma 3.6 meq/L 3.5-5.1 [facility] ([facility]) Chloride [Moles/volume] in Serum or Plasma 105 meq/L 98-107 [facility] ([facility]) Carbon dioxide, total [Moles/volume] in Serum or Plasma 33 meq/L 21 -32 [facility] ([facility]) Total Bilirubin 0.3 mg/dL 0.2-1.0 [facility] ([facility]) Alkaline phosphatase isoenzyme [Units/volume] in Serum or Pl asma 75 mg/dL 46-116 [facility] ([facility]) Calcium [Mass/volume] in Serum or Plasma 9.3 mg/dL 8.5-10.1 [facility] ([facility]) Aspartate aminotransferase [Enzymatic activity/volume] in Serum or Plasma 20 U/L 15-37 [facility] ([facility] ) Albumin [Mass/volume] in Serum or Plasma 3.9 g/dL 3.4-5.0 [facility] ([facility]) Alanine aminotransferase [Enzymatic activity/volume] in Seru m or Plasma 26 U/L 12-78 [facility] ([facility]) Proteinase 3 Ab [Units/volume] in Serum 8.1 g/dL 6.4-8.2 [facility] ([facility]) A/G Ratio 0.93 CALC 1.00-1.90 [facility] Glomerular filtration rate/1.73 sq M pre dicted among non-blacks [Volume Rate/Area] in Serum or Plasma by Creatinine-based formula (MDRD) 29 mL/min [facility] ([facility]) Glomerular filtration rate/1.73 sq M pre dicted among blacks [Volume Rate/Area] in Serum or Plasma by Creatinine-based formula (MDRD) 36 mL/min [facility] ([facility]) <content>CHRONIC KIDNEY DISEASE STAGING PER NK[facility]</content>
<content></content>
<content>STAGE I & II GFR >= 60 NORMAL TO MILDLY DECREASED</content>
<content>STAGE III GFR 30-59 MODERATELY DECREASED</content>
<content>STAGE IV GFR 15-29 SEVERELY DECREASED</content>
<content>STAGE V GFR <15 VERY LITTLE GFR LEFT</content>
<content>ESRD GFR <15 ON MACHINE CHOCOLATE MOLDER</content>
<content></content> ID Date Data Source [id number] 03/12/2020 02:51:00 PM EDT [facility] ([facility]) Name Value Range Interpretation Code Description Data Deepika rce(s) Supporting Document(s) Leukocytes [#/volume] in Blood by Automated count 7.0 x10*3/UL 4.1-10 .9 [facility] ([facility]) Hemoglobin [Mass/volume] in Blood 11.1 g/dL 12.0-18.0 [facility] ([facility]) NOTE: RESULT VERIFIED. Erythrocytes [#/volume] in Blood by Automated count 3.42 x10*6/UL 4.2 0-6.30 [facility] Hematocrit [Volume Fraction] of Blood by Automated count 31.6 % 3 7.0-51.0 [facility] ([facility]) MCV 92.2 fL 80.0-97.0 [facility] [facility] Erythrocyte distribution width [Ratio] by Automated count 12.3 % 11.6-13.7 [facility] ([facility]) MCHC 35.2 g/dL 31.0-38.0 [facility] [facility]) MCH 32.4 pg 26.0-32.0 [facility] [facility]) MPV 8.9 FL 7.8-11.0 [facility] [facility]) Platelets [#/volume] in Blood by Automated count 205 x10*3/UL 140-440 [facility] ([facility]) Lymph % 19.7 % 10.0-58.5 [facility] [facility] Mid % 6.4 % 1.7-9.3 [facility] Neut % 73.9 % 37.0-92.0 [facility] Lymph # 1.3 x10*3/UL 0.6-4.1 [facility] ([facility]) Mid # 0.6 x10*3/UL 0.1-0.6 [facility] ([facility]) Neut # 5.1 x10*3/UL 2.0-7.8 [facility] ([facility]) ID Date Data Source [id number] 03/12/2020 02:51:00 PM EDT [facility] ([facility]) Name Value Range Interpretation Code Description Data Deepika rce(s) Supporting Document(s) Cobalamin (Vitamin B12) [Mass/volume] in Serum or Plasma Lab oratory test result [facility] ([facility]) Ferritin [Mass/volume] in Serum or Plasma Laboratory test result [facility] ([facility]) Procedure Social History Code Duration Value Status Description Data Source(s ) Smoking 04/29/2021 12:00:00 AM EDT Never Smoker completed Never S moker eCW1 ([facility]) Smoking 04/21/2021 12:00:00 AM EDT Never Smoker completed Never S moker eCW1 ([facility]) Smoking 04/01/2021 12:00:00 AM EDT Never Smoker completed Never S moker eCW1 ([facility]) Alcohol intake 03/27/2021 12:00:00 AM EDT Ex-drinker (finding) comp leted Ex- drinker (finding) [facility] Smoking 02/17/2021 12:00:00 AM EDT Never Smoker completed Never S moker eCW1 ([facility]) Smoking 02/17/2021 12:00:00 AM EDT Never Smoker completed Never S moker eCW1 ([facility]) Smoking 02/17/2021 12:00:00 AM EDT Never Smoker completed Never S moker eCW1 ([facility]) Smoking 01/28/2021 12:00:00 AM EDT Never Smoker completed Never S moker eCW1 ([facility]) Smoking 01/28/2021 12:00:00 AM EDT Never Smoker completed Never S moker eCW1 ([facility]) Smoking 01/28/2021 12:00:00 AM EDT Never Smoker completed Never S moker eCW1 ([facility]) Smoking 01/16/2021 12:00:00 AM EDT Never Smoker completed Never S moker eCW1 ([facility]) Smoking 12/19/2020 12:00:00 AM EDT Never Smoker completed Never S moker eCW1 ([facility]) Smoking 12/19/2020 12:00:00 AM EDT Never Smoker completed Never S moker eCW1 ([facility]) Smoking 12/19/2020 12:00:00 AM EDT Never Smoker completed Never S moker eCW1 ([facility]) Smoking 11/26/2020 12:00:00 AM EDT Never Smoker completed Never S moker eCW1 ([facility]) Smoking 11/26/2020 12:00:00 AM EDT Never Smoker completed Never S moker eCW1 ([facility]) Smoking 11/26/2020 12:00:00 AM EDT Never Smoker completed Never S moker eCW1 ([facility]) Smoking 11/26/2020 12:00:00 AM EDT Never Smoker completed Never S moker eCW1 ([facility]) Smoking 11/26/2020 12:00:00 AM EDT Never Smoker completed Never S moker eCW1 ([facility]) Smoking 11/26/2020 12:00:00 AM EDT Never Smoker completed Never S moker eCW1 ([facility]) Tobacco use and exposure 11/06/2020 12:00:00 AM EDT Never used co mpleted Never used [facility] Smoking 11/06/2020 12:00:00 AM EDT Former smoker completed Former smoker [facility] Alcohol intake 11/06/2020 12:00:00 AM EDT Not Currently completed [facility] Smoking 11/06/2020 12:00:00 AM EDT Former smoker completed Former smoker [facility] Smoking 11/04/2020 12:00:00 AM EDT Never Smoker completed Never S moker eCW1 ([facility]) Smoking 11/04/2020 12:00:00 AM EDT Never Smoker completed Never S moker eCW1 ([facility]) Smoking 10/21/2020 12:00:00 AM EDT Never Smoker completed Never S moker eCW1 ([facility]) Smoking 10/21/2020 12:00:00 AM EDT Never Smoker completed Never S moker eCW1 ([facility]) Alcohol intake 03/25/2020 12:00:00 AM EDT Current non-d keesha of alcohol (finding) completed Current non-drinker of alcohol (finding) [facility] Tobacco use and exposure 03/25/2020 12:00:00 AM EDT Never used co mpleted Never used [facility] Cigarettes smoked current (pack per day) - Reported 03/25/20 20 12:00:00 AM EDT UNK completed [facility] Smoking 03/25/2020 12:00:00 AM EDT Former smoker completed Former smoker [facility] Vital Signs ID Date Data Source UNK Name Value Range Interpretation Code Description Data Source(s) Body temperature 97.2 [degF] 97.2 [degF] [facility] ([facility], ) Body temperature 97.5 [degF] 97.5 [degF] [facility] ([facility], ) Body height 64 [in_i] 64 [in_i] [facility]) 5'4" Body mass index (BMI) [Ratio] 24.2 kg/m2 24.2 k g/m2 [facility] ([facility]) Systolic blood pressure 150 mm[Hg] 150 mm[Hg] [facility] Diastolic blood pressure 72 mm[Hg] 72 mm[Hg] [facility] ([facility]) Heart rate 70 /min 70 /min [facility] ([facility]) Body weight 141.00 [lb_av] 141.00 [lb_av] ALEC Bear ([facility]) Oxygen saturation in Arterial blood by Pulse oximetry 94 % 94 % [facility] ([facility]) Body weight 64.41 kg 64.41 kg eCW1 ([facility]) Body height 63 [in_i] 63 [in_i] eCW1 ([facility]) Body mass index (BMI) [Ratio] 25.15 kg/m2 25.15 kg/m2 eCW1 ([facility]) Heart rate 64 /min 64 /min eCW1 ([facility]) Respiratory rate 16 /min 16 /min eCW1 ([facility]) Body weight 142 [lb_av] 142 [lb_av] eCW1 ([facility]) Body temperature 98 [degF] 98 [degF] eCW1 ([facility]) Body temperature 97.3 [degF] 97.3 [degF] [facility] ([facility], ) [place] body weight 130 [lb_av] 130 [lb_av] [facility] T ([facility], ) Body height 64 [in_i] 64 [in_i] [facility] ([facility], ) 5'4" Systolic blood pressure 134 mm[Hg] 134 mm[Hg] [facility] ) Diastolic blood pressure 62 mm[Hg] 62 mm[Hg] [facility] ([facility], ) Oxygen saturation in Arterial blood by Pulse oximetry 99 % 99 % [facility] ([facility], ) Respiratory rate 17 /min 17 /min [facility] ( [facility], ) Body temperature 97.6 [degF] 97.6 [degF] [facility] ([facility], ) Systolic blood pressure 130 mm[Hg] 130 mm[Hg] [facility] Diastolic blood pressure 60 mm[Hg] 60 mm[Hg] [facility] Heart rate 65 /min 65 /min [facility] Respiratory rate 18 /min 18 /min [facility] Body height 160 cm 160 cm [facility] Body weight 62.596 kg 62.596 kg [facility] Body mass index (BMI) [Ratio] 24.45 kg/m2 24.45 kg/m2 [facility] Oxygen saturation in Arterial blood by Pulse oximetry 98 % 98 % [facility] Diastolic blood pressure 74 mm[Hg] 74 mm[Hg] [facility] ([facility]) Heart rate 65 /min 65 /min [facility] ([facility]) Body height 64 [in_i] 64 [in_i] [facility] ([facility]) 5'4" Body weight 137.00 [lb_av] 137.00 [lb_av] MEDEN T ([facility]) Oxygen saturation in Arterial blood by Pulse oximetry 95 % 95 % [facility] ([facility]) Body mass index (BMI) [Ratio] 23.5 kg/m2 23.5 k g/m2 [facility] ([facility]) Systolic blood pressure 126 mm[Hg] 126 mm[Hg] [facility]) Body temperature 97.4 [degF] 97.4 [degF] [facility] ([facility]) Body height 64 [in_i] 64 [in_i] [facility] ([facility]) 5'4" Body weight 140.00 [lb_av] 140.00 [lb_av] MED[facility] T ([facility]) Body mass index (BMI) [Ratio] 24.0 kg/m2 24.0 k g/m2 [facility] ([facility]) [place] body weight 130 [lb_av] 130 [lb_av] [facility] T ([facility]) Body weight 63.504 kg 63.504 kg [facility] ([facility]) Body surface area Derived from formula 1.68 m2 1.68 m2 [facility] ([facility]) Systolic blood pressure 124 mm[Hg] 124 mm[Hg] M EDENT ([facility]) Diastolic blood pressure 70 mm[Hg] 70 mm[Hg] [facility]) Heart rate 72 /min 72 /min [facility] ([facility]) Body height 64 [in_i] 64 [in_i] [facility] ([facility]) 5'4" Body weight 138.00 [lb_av] 138.00 [lb_av] MEDEN T ([facility]) Body mass index (BMI) [Ratio] 23.7 kg/m2 23.7 k g/m2 [facility] ([facility]) Body temperature 97.9 [degF] 97.9 [degF] [facility] ([facility] ) Body weight 141 [lb_av] 141 [lb_av] eCW1 ([facility]) Body height 63 [in_i] 63 [in_i] eCW1 ([facility]) Body mass index (BMI) [Ratio] 24.97 kg/m2 24.97 kg/m2 eCW1 ([facility]) Heart rate 68 /min 68 /min eCW1 ([facility]) Respiratory rate 18 /min 18 /min eCW1 ([facility]) Body temperature 97.9 [degF] 97.9 [degF] eCW1 ( [facility]) Systolic blood pressure 134 mm[Hg] 134 mm[Hg] e CW1 ([facility]) Diastolic blood pressure 76 mm[Hg] 76 mm[Hg] eCW1 ([facility]) Body weight 139 [lb_av] 139 [lb_av] eCW1 ([facility]) Body height 63 [in_i] 63 [in_i] eCW1 ([facility]) Systolic blood pressure 132 mm[Hg] 132 mm[Hg] e CW1 ([facility]) Heart rate 59 /min 59 /min eCW1 ([facility]) Respiratory rate 18 /min 18 /min eCW1 ([facility]) Body temperature 98.1 [degF] 98.1 [degF] eCW1 ( [facility]) Body mass index (BMI) [Ratio] 24.62 kg/m2 24.62 kg/m2 eCW1 ([facility]) Diastolic blood pressure 72 mm[Hg] 72 mm[Hg] eCW1 ([facility]) Body temperature 98.0 [degF] 98.0 [degF] [facility] ([facility] ) Body temperature 98.0 [degF] 98.0 [degF] [facility] ([facility] ) Body temperature 98.8 [degF] 98.8 [degF] [facility] ([facility], ) Body weight 140 [lb_av] 140 [lb_av] eCW1 ([facility]) Body height 63 [in_i] 63 [in_i] eCW1 ([facility]) Body mass index (BMI) [Ratio] 24.80 kg/m2 24.80 kg/m2 eCW1 ([facility]) Heart rate 82 /min 82 /min eCW1 ([facility]) Respiratory rate 18 /min 18 /min eCW1 ([facility]) Body temperature 98.6 [degF] 98.6 [degF] eCW1 ( [facility]) Systolic blood pressure 144 mm[Hg] 144 mm[Hg] e CW1 ([facility]) Diastolic blood pressure 62 mm[Hg] 62 mm[Hg] eCW1 ([facility]) Body temperature 96.3 [degF] 96.3 [degF] [facility] ([facility] ) Body temperature 98.2 [degF] 98.2 [degF] [facility] ([facility] ) Body weight 147 [lb_av] 147 [lb_av] eCW1 ([facility]) Body height 63 [in_i] 63 [in_i] eCW1 ([facility]) Body mass index (BMI) [Ratio] 26.04 kg/m2 26.04 kg/m2 eCW1 ([facility]) Heart rate 78 /min 78 /min eCW1 ([facility]) Respiratory rate 18 /min 18 /min eCW1 ([facility]) Body temperature 98.7 [degF] 98.7 [degF] eCW1 ( [facility]) Systolic blood pressure 134 mm[Hg] 134 mm[Hg] e CW1 ([facility]) Diastolic blood pressure 72 mm[Hg] 72 mm[Hg] eCW1 ([facility]) Systolic blood pressure 154 mm[Hg] 154 mm[Hg] [facility]) lt arm Diastolic blood pressure 78 mm[Hg] 78 mm[Hg] [facility] ([facility]) lt arm Heart rate 76 /min 76 /min [facility] ([facility]) Body height 64 [in_i] 64 [in_i] [facility] ([facility]) 5'4" Body weight 146.12 [lb_av] 146.12 [lb_av] MEDEN T ([facility]) Diastolic blood pressure 82 mm[Hg] 82 mm[Hg] [facility] ([facility]) lt arm Systolic blood pressure 140 mm[Hg] 140 mm[Hg] [facility]) lt arm Oxygen saturation in Arterial blood by Pulse oximetry --post exerci se 93 % 93 % [facility] ([facility]) RM Air Body mass index (BMI) [Ratio] 25.1 kg/m2 25.1 k g/m2 [facility]) Respiratory rate 17 /min 17 /min [facility] ( [facility] ) Body temperature 97.8 [degF] 97.8 [degF] [facility] ([facility], ) [place] body weight 130 [lb_av] 130 [lb_av] MED[facility] T ([facility], ) Systolic blood pressure 191 mm[Hg] 191 mm[Hg] [facility] ) Body height 64 [in_i] 64 [in_i] [facility] ([facility], ) 5'4" Diastolic blood pressure 83 mm[Hg] 83 mm[Hg] [facility] ([facility], ) Heart rate 74 /min 74 /min [facility] ([facility], ) Oxygen saturation in Arterial blood by Pulse oximetry 97 % 97 % [facility] ([facility], ) Body weight 147 [lb_av] 147 [lb_av] eCW1 ([facility]) Body height 63 [in_i] 63 [in_i] W1 ([facility]) Body mass index (BMI) [Ratio] 26.04 kg/m2 26.04 kg/m2 eCW1 ([facility]) Heart rate 85 /min 85 /min eCW1 ([facility]) Respiratory rate 18 /min 18 /min eCW1 ([facility]) Body temperature 98.6 [degF] 98.6 [degF] eCW1 ( [facility]) Systolic blood pressure 128 mm[Hg] 128 mm[Hg] e CW1 ([facility]) Diastolic blood pressure 78 mm[Hg] 78 mm[Hg] eCW1 ([facility]) Systolic blood pressure 118 mm[Hg] 118 mm[Hg] [facility] Diastolic blood pressure 74 mm[Hg] 74 mm[Hg] [facility] Heart rate 65 /min 65 /min [facility] Body height 160 cm 160 cm [facility] Body weight 66.679 kg 66.679 kg [facility] Body mass index (BMI) [Ratio] 26.04 kg/m2 26.04 kg/m2 [facility] Oxygen saturation in Arterial blood by Pulse oximetry 98 % 98 % [facility] Body height 64 [in_i] 64 [in_i] [facility] ([facility]) 5'4" Body mass index (BMI) [Ratio] 25.2 kg/m2 25.2 k g/m2 [facility] ([facility]) Systolic blood pressure 122 mm[Hg] 122 mm[Hg] M EDENT ([facility]) Diastolic blood pressure 70 mm[Hg] 70 mm[Hg] [facility] ([facility]) Heart rate 73 /min 73 /min [facility] ([facility]) Body weight 147.00 [lb_av] 147.00 [lb_av] MEDEN T ([facility]) Oxygen saturation in Arterial blood by Pulse oximetry 96 % 96 % [facility] ([facility]) RM Air Systolic blood pressure 118 mm[Hg] 118 mm[Hg] e CW1 ([facility]) Diastolic blood pressure 76 mm[Hg] 76 mm[Hg] eCW1 ([facility]) Body weight 146 [lb_av] 146 [lb_av] eCW1 ([facility]) Body height 63 [in_i] 63 [in_i] eCW1 ([facility]) Body mass index (BMI) [Ratio] 25.86 kg/m2 25.86 kg/m2 eCW1 ([facility]) Heart rate 78 /min 78 /min eCW1 ([facility]) Respiratory rate 18 /min 18 /min eCW1 ([facility]) Body temperature 98.6 [degF] 98.6 [degF] eCW1 ( [facility]) Body weight 165 [lb_av] 165 [lb_av] eCW1 ([facility]) Body height 63 [in_i] 63 [in_i] eCW1 ([facility]) Body mass index (BMI) [Ratio] 29.23 kg/m2 29.23 kg/m2 eCW1 ([facility]) Heart rate 88 /min 88 /min eCW1 ([facility]) Respiratory rate 18 /min 18 /min eCW1 ([facility]) Body temperature 97.7 [degF] 97.7 [degF] eCW1 ( [facility]) Systolic blood pressure 158 mm[Hg] 158 mm[Hg] e CW1 ([facility]) Diastolic blood pressure 84 mm[Hg] 84 mm[Hg] eCW1 ([facility]) Oxygen saturation in Arterial blood by Pulse oximetry 97 % 97 % [facility] ([facility] ) Room Air Body temperature 97.6 [degF] 97.6 [degF] [facility] ([facility], ) Body height 64 [in_i] 64 [in_i] [facility] 5'4" Body weight 140.25 [lb_av] 140.25 [lb_av] MED[facility] T ([facility], ) Body mass index (BMI) [Ratio] 24.1 kg/m2 24.1 k g/m2 [facility] ([facility]) [place] body weight 130 [lb_av] 130 [lb_av] MED[facility] T ([facility]) Body weight 63.617 kg 63.617 kg [facility] ([facility]) Body surface area Derived from formula 1.68 m2 1.68 m2 [facility] ([facility]) Systolic blood pressure 146 mm[Hg] 146 mm[Hg] M [facility] ([facility]) Diastolic blood pressure 67 mm[Hg] 67 mm[Hg] [facility] ([facility]) Heart rate 77 /min 77 /min [facility] ([facility]) Systolic blood pressure 120 mm[Hg] 120 mm[Hg] M [facility] ([facility]) Diastolic blood pressure 70 mm[Hg] 70 mm[Hg] [facility] ([facility]) Body weight 152.00 [lb_av] 152.00 [lb_av] MEDEN T ([facility]) Oxygen saturation in Arterial blood by Pulse oximetry 97 % 97 % [facility] ([facility]) [facility] Body mass index (BMI) [Ratio] 26.1 kg/m2 26.1 k g/m2 [facility]) Heart rate 62 /min 62 /min [facility]) Body height 64 [in_i] 64 [in_i] [facility] ([facility]) 5'4" Systolic blood pressure 124 mm[Hg] 124 mm[Hg] M [facility] ([facility]) Diastolic blood pressure 78 mm[Hg] 78 mm[Hg] [facility] ([facility]) Heart rate 66 /min 66 /min [facility] ([facility]) Body height 64 [in_i] 64 [in_i] [facility]) 5'4" Body weight 152.00 [lb_av] 152.00 [lb_av] MEDEN T ([facility]) Oxygen saturation in Arterial blood by Pulse oximetry 94 % 94 % [facility] ([facility]) Body mass index (BMI) [Ratio] 26.1 kg/m2 26.1 k g/m2 [facility] ([facility]) ID Date Data Source [id number] 03/25/2020 11:31:20 AM EDT [facility] Name Value Range Interpretation Code Description Data Source(s) WEIGHT RECORDED 150 lb 150 lb [facility] Body height Measured 63 in 63 in [place]st [facility] Patient Treatment Plan of Care Planned Activity Planned Date Details Description Data Source (s) Cefazolin Sodium 2 GM/20ML 12/24/2020 12:00:00 AM EDT eCW1 ([facility]) ceFAZolin Sodium 2 GM/20ML 12/24/2020 12:00:00 AM EDT eCW1 ([facility]) Cefazolin Sodium 2 GM/20ML 12/24/2020 12:00:00 AM EDT eCW1 ([facility]) ceFAZolin Sodium 2 GM/20ML 12/24/2020 12:00:00 AM EDT eCW1 ([facility]) Hydralazine Hydrochloride 25 MG Oral Tablet 11/05/2020 12:00:00 AM EDT [facility] atorvastatin 40 MG Oral Tablet 11/01/2020 12:00:00 AM EDT [facility] Nafcillin 100 MG/ML Injectable Solution 10/28/2020 12:00:00 AM EDT [facility] Calcitriol 0.99179 MG Oral Capsule 10/25/2020 12:00:00 AM EDT [facility] Rifampin 150 MG Oral Capsule 10/10/2020 12:00:00 AM EDT [facility] Probiotic Product (TERESA-BID PROBIOTIC) TABS 10/10/2020 12:00:00 AM EDT [facility] gabapentin 800 MG Oral Tablet 09/16/2020 12:00:00 AM EST [facility] torsemide 10 MG Oral Tablet [facility]
[2021-05-09] MEDS ORDERED: VANCOMYCIN HCL 1,000 MG, VIAL MATE ADAPTER 1 EACH in NS 250 ML IV ONE ×2 (11:00→17:00)
--- OUTSIDE RECORDS SUMMARY | 2021-05-09 11:18 | CCD ---
Author Author [facility] Organization [facility] Address Unknown Phone Unavailable Care Team Providers Care Plate Washer Name Role Phone Cooper, P Doyle PA [...] Unavailable SMITH, A JANET MD Unavailable Unavailable SMTIH, A JANET MD Unavailable Unavailable SMITH, A [...] Unavailable Unavailable Amelia, Paulette DO Unavailable Unavailable Aemlia, Paulette DO Unavailable Unavailable Amelia, Paulette DO [...] is protected by Article 27-F of the [facility] Public Health law. If you continue you may have access to information: Regarding HIV / AIDS; Provided by facilities licensed or operated by the [facility] Office of Mental Health; or Provided by the [facility] Office for People With Developmental Disabilities. If such information is present, then the following [facility] mandated warning applies: This information has been [...] law may result in a fine or longterm sentence or both. A general authorization for the release of medical or other information is NOT sufficient authorization for further disc losure. Allergies and Adverse Reactions Type Description Substance Reaction Status Data Source(s ) Sulfasalazine Sulfa Antibiotics Sulfasalazine kidney issues Active eCW1 ([facility]) Propensity to adverse reactions NO KNOWN ALLERGIES NO KNOWN ALLERGIES [facility] Family History Family Member Name Family Member Gender Family Member Status Date o f Status Description Data Source(s) Unknown Male Problem MEDENT ([facility]) Unknown Male Problem MEDENT ([facility]) Encounters Encounter Providers Location Date Indications Data Source(s ) Office Visit Attender: David Mendoza/Avoca/Eugenio/Rein dl 04/30/2021 01:00:00 PM EDT MED[facility] ([facility]) Office Visit Attender: David Mendoza/Avoca/Eugenio/Rein dl 04/25/2021 09:30:00 AM EDT [facility] ([facility]) [place] [address] [address] 04/22/2021 12:00:00 AM EDT eCW1 ([facility]) [place] [address] [address] 04/21/2021 12:00:00 AM EDT eCW1 ([facility] Office Visit Attender: David Mendoza/Wagner/Eugenio/Rein dl 04/14/2021 02:30:00 PM EDT MEDENT ([facility]) Outpatient Attender: David Mendoza/Wagner/Eugenio/Rein dl 04/08/2021 01:00:00 PM EDT MED[facility] ([facility]) [place] [address] [address] 04/01/2021 12:00:00 AM EDT eCW1 ([facility]) Outpatient Attender: Bola LOPEZ.SHANIT-SJFILOMENA 08/2020 12:00:00 AM EDT - 03/27/2021 12:04:45 PM EDT [facility] [place] [address] [address] 03/10/2021 12:00:00 AM EDT [facility]CW1 [facility] Outpatient Attender: David Mendoza/Avoca/Eugenio/Rein dl 03/06/2021 10:00:00 AM EDT MEDENT ([facility]) Outpatient Attender: Paulette Penaloza 03/03 02:30:00 PM EDT MEDENT ([facility] ) Office Visit Attender: David Menodza/Wagner/Eugenio/Rein dl 02/24/2021 10:30:00 AM EDT MED[facility] ([facility]) [place] [address] [address] 02/18/2021 12:00:00 AM EDT eCW1 ([facility]) [place] [address] [address] 02/17/2021 12:00:00 AM EDT eCW1 ([facility]) [place] [address] [address] 01/28/2021 12:00:00 AM EDT eCW1 ([facility]) [place] [address] [address] 01/28/2021 12:00:00 AM EDT eCW1 ([facility]) Office Visit Attender: David Mendoza/Wagner/Eugenio/Rein dl 01/24/2021 11:00:00 AM EDT MED[facility] ([facility]) [place] [address] [address] 01/23/2021 12:00:00 AM EDT eCW1 ([facility]) Office Visit Attender: David Mendoza/Wagner/Eugenio/Rein dl 01/20/2021 01:00:00 PM EDT MED[facility] ([facility]) [place] [address] [address] 01/16/2021 12:00:00 AM EDT eCW1 ([facility]) [place] [address] [address] 01/07/2021 12:00:00 AM EDT eCW1 ([facility]) Office Visit Attender: David Mendoza/Wagner/Eugenio/Rein dl 01/01/2021 11:00:00 AM EDT MED[facility] ([facility]) Office Visit Attender: David Mendoza/Wagner/Eugenio/Rein dl 12/24/2020 09:30:00 AM EDT [facility] ([facility]) [place] [address] [address] 12/19/2020 12:00:00 AM EDT eCW1 ([facility]) [place] [address] [address] 12/19/2020 12:00:00 AM EDT eCW1 ([facility]) Unknown [address] [facility] [place] [address] 12/10/2020 12:00:00 AM EDT eCW1 ([facility]) Outpatient Attender: Paulette Penaloza 12/06 10:20:00 AM EDT MEDENT ([facility] ) [place] [address] [address] 12/02/2020 12:00:00 AM EDT eCW1 ([facility]) Unknown [address] [facility] [place] [address] 12/02/2020 12:00:00 AM EDT eCW1 ([facility]) Outpatient Attender: David Mendoza/Wagner/Eugenio/Rein dl 11/29/2020 10:30:00 AM EDT MED[facility] ([facility]) Unknown [address] [facility] [place] [address] 11/28/2020 12:00:00 AM EDT eCW1 ([facility]) Outpatient [address] [facility] [place] [address] 11/26/2020 12:00:00 AM EDT eCW1 ([facility]) Unknown [address] [facility] [place] [address] 11/26/2020 12:00:00 AM EDT eCW1 ([facility]) Outpatient Attender: Bola Somers MDReferrer: Suzie Umana MD SJP.SHANTI-SJP.SHANTI 11/06/2020 09:31:15 AM EDT - 11/06/2020 10:04:09 AM EDT [facility] Outpatient Attender: Paulette Penaloza 11/05 09:00:00 AM EDT MEDENT ([facility] ) [place] [address] [facility] [address] 11/04/2020 12:00:00 AM EDT eCW1 (Critical [facility] hospital) [place] [address] [address] 11/04/2020 12:00:00 AM EDT eCW1 (Critical access hospital) [place] [address] [facility] [address] 10/28/2020 12:00:00 AM EDT eCW1 (Critical access hospital) [place] [address] [address] 10/21/2020 12:00:00 AM EDT eCW1 (Critical access hospital) Outpatient Attender: David Mendoza/Wagner/Eugenio/Meg figueredo 10/16/2020 09:00:00 AM EDT MEDENT ([facility]) Outpatient Attender: Doyle OROURKE 10/03/2020 12:00:00 AM [facility] Outpatient Attender: Paulette Penaloza 08/19 08:00:00 AM EST MEDENT ([facility] ) Outpatient Referrer: JANET SMITH MD 03/25/2020 12 :00:00 AM EDT Presence of artificial knee joint, bilateral [facility] Presence of artificial knee joint, jose eduardo cool Outpatient Attender: JANET SMITH MD [id number] 03/25/2020 12:00:0 0 AM EDT [facility] Outpatient Attender: Paulette Penaloza 03/12 02:45:00 PM EDT MEDENT ([facility] ) Immunizations Vaccine Date Status Description Data Source(s) influenza, recombinant, quadrIvalent,injectable, prese rvative free 04/21/2021 12:37:00 PM EDT completed eCW1 ([facility]) influenza, recombinant, quadrIvalent,injectable, prese rvative free 04/21/2021 12:37:00 PM EDT completed eCW1 ([facility]) COVID-19 VACCINE Moderna 09/06/2020 12:00:00 AM EST completed [facility] Vaccine Series Complete: YESThis Data wa s Submitted to [facility] Via [facility]. COVID-19 VACCINE, MRNA-1273, LNP-S (MODERNA)/PF 09/06/2020 1 2:00:00 AM EST completed [facility] COVID-19 VACCINE, MRNA-1273, LNP-S (MODERNA)/PF 08/10/2020 1 2:00:00 AM EST completed [facility] COVID-19 VACCINE Moderna 08/10/2020 12:00:00 AM EST completed [facility] Vaccine Series Complete: NOThis Data was Submitted to [facility] Via [employer]. This CVX code allows reporting of a vacc ination when formulation is unknown (for example, when recording a Influenza vaccination when noted on a vaccination card) 05/17/2020 08:57:00 AM EDT completed MEDEN T ([facility]) INFLUENZA VACCINE QUADRIVALENT (65 YR UP)/MF59 C.1/PF 05/17/2020 12:00:00 AM EDT completed [facility] Medications Medication Brand Name Start Date Product Form Dose Route Admi nistrative Instructions Pharmacy Instructions Status Indications Reaction Description Data Source(s) Hydrochlorothiazide 12.5 MG Oral Tablet Hydrochlorothiazide 04/21/2021 12:00:00 AM EDT ORAL completed MEDENT ([facility]) Losartan Potassium 25 MG Oral Tablet Losartan Potassium 12:00:00 AM EDT ORAL completed MEDENT ([facility]) Furosemide 20 MG Oral Tablet Furosemide 04/21/2021 12:00:00 AM EDT active MEDENT ([facility]) Sulfamethoxazole 800 MG / Trimethoprim 160 MG Oral Tab let Sulfamethoxazole/Trimethoprim DS 04/11/2021 12:00:00 AM EDT ORAL active MEDENT ([facility] ) Acetaminophen 500 MG Oral Tablet [Tylenol] Tylenol Extra Str ength 03/25/2021 12:00:00 AM EDT active M EDENT ([facility]) Vitamin C 03/25/2021 12:00:00 AM EDT ORAL active MEDENT ([facility]) ceFAZolin Sodium 2 GM/20ML ceFAZolin Sodium 2 GM/20ML 2020 12:00:00 AM EDT active ceFAZolin Sodium 2 GM/20ML eCW1 ([facility]) Cefazolin Sodium 2 GM/20ML Cefazolin Sodium 2 GM/20ML 2020 12:00:00 AM EDT active Cefazolin Sodium 2 GM/20ML eCW1 ([facility]) Cefazolin Sodium 2 GM/20ML Cefazolin Sodium 2 GM/20ML 2020 12:00:00 AM EDT active Cefazolin Sodium 2 GM/20ML eCW1 ([facility]) ceFAZolin Sodium 2 GM/20ML ceFAZolin Sodium 2 GM/20ML 2020 12:00:00 AM EDT active ceFAZolin Sodium 2 GM/20ML eCW1 ([facility]) Multivitamin Men 50+ 12/06/2020 12:00:00 AM EDT ORAL active MEDENT ([facility]) Iron OTC 12/06/2020 12:00:00 AM EDT ORAL completed MEDENT ([facility]) Hydralazine Hydrochloride 25 MG Oral Tablet Hydralazine HCL 12/02/2020 12:00:00 AM EDT ORAL active MEDENT ([facility]) chlorhexidine gluconate 40 MG/ML Medicated Liquid Soap [Hibi clens] Hibiclens 11/30/2020 12:00:00 AM EDT completed MEDENT ([facility] ) Hydralazine Hydrochloride 10 MG Oral Tablet Hydralazine HCL 11/05/2020 12:00:00 AM EDT completed MEDENT ([facility]) Amlodipine 5 MG Oral Tablet Amlodipine Besylate 11/05/2020 12:00:00 A M EDT ORAL completed [facility]ENT ([facility]) Hydralazine Hydrochloride 25 MG Oral Tab let hydrALAZINE (APRESOLINE) 25 MG tablet hydrALAZINE (APRESOLINE) 25 MG tablet 11/05/2020 12:00:00 AM EDT active [facility] Hydralazine Hydrochloride 25 MG Oral Tablet Hydralazine HCL 11/05/2020 12:00:00 AM EDT completed MEDENT ([facility]) atorvastatin 40 MG Oral Tablet Atorvastatin Calcium 11/04/2020 1 2:00:00 AM EDT ORAL active MEDENT ( [facility]) Furosemide 40 MG Oral Tablet Furosemide 11/04/2020 12:00:00 AM EDT ORAL completed MEDENT ([facility]) Amlodipine 10 MG Oral Tablet Amlodipine Besylate 11/04/2020 12:00:00 AM EDT ORAL completed [facility] ([facility]) atorvastatin 40 MG Oral Tablet atorvastatin (LIPITOR) 40 MG tablet atorvastatin (LIPITOR) 40 MG tablet 11/01/2020 12:00:00 AM EDT active [facility] Nafcillin 100 MG/ML Injectable Solution Nafcillin Sodi um 10 g SOLR Nafcillin Sodium 10 g SOLR 10/28/2020 12:00:00 AM EDT aborte d [facility] Calcitriol 0.96788 MG Oral Capsule calcitriol (ROCALTR OL) 0.25 MCG capsule calcitriol (ROCALTROL) 0.25 MCG capsule 10/25/2020 12:00:00 AM EDT active TAKE 1 CAPSULE BY MOUTH ONCE A D AY Wednesday [facility] tramadol hydrochloride 50 MG Oral Tablet Tramadol HCL 10/11/2020 12:00:00 AM EDT ORAL completed MEDENT ([facility]) Probiotic Product (TERESA-BID PROBIOTIC) TABS 88099-075-38 10/10/2020 12:00:00 AM EDT active TAKE 1 CAPSULE BY MOUTH TWICE DAILY WITH FOOD [facility] Rifampin 150 MG Oral Capsule rifampin (RIFADIN) 150 MG capsule rifampin (RIFADIN) 150 MG capsule 10/10/2020 12:00:00 AM EDT 300 mg Oral aborted Take 300 mg by mouth 2 (two) times a day [facility] gabapentin 800 MG Oral Tablet gabapentin (NEURONTIN) 8 00 MG tablet gabapentin (NEURONTIN) 800 MG tablet 09/16/2020 12:00:00 AM EST 800 mg Oral active Take 800 mg by mouth 2 (two) times a day [facility] Covid-19 vaccine, Unspecified 08/10/2020 12:00:00 AM EST [...] aborted Take 10 mg by mouth daily [facility] Insurance Providers Payer name Policy type / Coverage type Policy ID Covered alliance party ID Covered alliance party's relationship to mo Policy Mo Plan Information [id number] A [facility] ([place], [place] TODAY OPTIONS [id number] Self [id number] MEDICARE [id number] [place] Med[place] B [id number] Self 1 [id number] [place] Med[place]ap [place] B [id number] Self 1 [id number] [place] Med[place]ap Part B [id number] Self 1 [id number] Medicare [place] Medigap Part B [id number] Self 1 [id number] Todays Option Medicare Commercial [id number] Self [id number] Todays Option Medicare Commercial [id number] Self [id number] Todays Options Commercial [id number] 1881.0 Self [id number] Todays Option Medicare Commercial [id number] Self [id number] Tod[employer] Options Commercial [id number] 1881.0 Self [id number] Tod[employer] Options Commercial [id number] 1881.0 Self [id number] Todays Option Medicare Commercial [id number] Self [id number] Todays Option Medicare Commercial [id number] Self [id number] Tod[employer] Options Commercial [id number] 1881.0 Self [id number] Todays Option Medicare Commercial [id number] Self [id number] Todays Option Medicare Commercial [id number] Self [id number] Todays Option Medicare Commercial [id number] Self [id number] Todays Option Medicare Commercial [id number] Self [id number] Todays Option Medicare Commercial [id number] Self [id number] AMER PROG TODAYS OPTIONS G [id number] Self [id number] WELLCARE MEDICARE HMO G [id number] Self [id number] WELLCARE MEDICARE HMO G [id number] Self [id number] Wellcare/Todays Optmcr Commercial [id number] Self [id number] WELLCARE MEDICARE [id number] [phone] [id number] WELLCARE MEDICARE [id number] [facility] [id number] MEDICARE [id number] SP [id number] A MEDICARE [id number] SP [id number] A TODAYS OPTIONS/BRAZILIAN O [id number] S [id number] Medicare Natl Govt Servic Medicare Primary [id number] Self [id number] Medicare Natl Govt Servic Medicare Primary [id number] Self [id number] Medicare Natl Govt Servic Medicare Primary [id number] Self [id number] Medicare Natl Govt Servic Medicare Primary [id number] Self [id number] Wellcare Health Plans(To) Commercial [id number] Self [id number] Medicare Natl Govt Servic Medicare Primary [id number] Self [id number] TODAYS OPTIONS [id number] SP [id number] TODAYS OPTIONS [id number] SP [id number] WELLCARE [id number] SP [id number] Medicare Natl Govt Servic Medicare Primary [id number] Self [id number] MEDICARE [id number] SP [id number] A Medicare Natl Govt Servic Medicare Primary [id number] Self [id number] MEDICARE [id number] SP [id number] Medicare Natl Govt Servic Medicare Primary [id number] Self [id number] Medicare Natl Govt Servic Medicare Primary [id number] Self [id number] Medicare Natl Govt Servic Medicare Primary [id number] Self [id number] Medicare Natl Govt Servic Medicare Primary [id number] Self [id number] Medicare Natl Govt Servic Medicare Primary [id number] Self MEDICARE C [id number] S [id number] A Medicare Natl Govt Servic Medicare Primary [id number] Self [id number] WELLCARE [id number] SP [id number] Medicare Natl Govt Servic Medicare Primary [id number] Self [id number] Problems, Conditions, and Diagnoses Code Display Name Description Problem Type Effective Dates Data Source(s) Z01.810 Encounter for preprocedural cardiovascul ar examination Encounter for preprocedural cardiovascul Diagnosis 03/27/2021 11:21:34 AM EDT [facility] Q21.1 Atrial septal defect Atrial septal defect Diagnosis 11/06/2020 09:31:15 AM EDT [facility] I33.0 Acute and subacute infective endocarditi s Acute and subacute infective endocarditi Diagnosis 11/06/2020 09:31:15 AM EDT [facility] E87.5 [id number] Hyperkalemia Problem 04/29/2021 12:00:00 AM EDT eCW1 ([facility]) Z01.810 Preoperative cardiovascular examination Preoperative cardiovascular examination [id number] 03/27/2021 12:00:00 AM EDT [facility] D63.8 [id number] Anemia in chronic illness Problem 01/16/2021 12:00:00 AM EDT eCW1 ([facility]) [id number] Essential hypertension Essential hypertension Problem 11/29/2020 12:00:00 AM EDT [facility] ([facility] ) I25.10 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 Atherosclerosis of seminole coronary arter y of seminole heart without angina pectoris [id number] 11/06/2020 12:00:00 AM EDT [facility] I10 Hypertension Hypertension [id number] 11/06/2020 12:00:00 A M EDT [facility] N18.9 Chronic kidney disease Chronic kidney disease [id number] 11/06/2020 12:00:00 AM EDT [facility] Q21.1 Atrial septal defect, secundum Atrial septal defect, s ecundum [id number] 11/06/2020 12:00:00 AM EDT [facility] I33.0 Subacute bacterial endocarditis Subacute bacterial end ocarditis [id number] 11/06/2020 12:00:00 AM EDT [facility] D50.0 [id number] Iron deficiency anemia due to chronic blo od loss Problem 11/04/2020 12:00:00 AM EDT eCW1 ([facility]) A49.01 [id number] MSSA (methicillin susceptible Staphylococ cus aureus) Problem 10/21/2020 12:00:00 AM EDT eCW1 ([facility]) I35.8 [id number] Aortic valve endocarditis Problem 10/21/2020 12:00:00 AM EDT eCW1 ([facility]) I10 17296510 Essential (primary) hypertension Problem 10/21/2020 12:00:00 AM EDT eCW1 ([facility]) T84.59XD 077003262 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, subsequent encounter Problem 10/21/2020 12:00:00 A M EDT eCW1 ([facility]) Z96.659 [id number] Presence of unspecified artificial knee j oint Problem 10/21/2020 12:00:00 AM EDT eCW1 ([facility]) M51.36 [id number] DDD (degenerative disc disease), lumbar P roblem 10/21/2020 12:00:00 AM EDT eCW1 ([facility]) Z47.1 Aftercare following bilateral knee joint replacement surgery Aftercare following bilateral knee joint replacement surgery [id number] 12:00:00 AM EDT [facility] Surgeries/Procedures Procedure Description Date Indications Data Source(s) OFFICE OUTPATIENT VISIT 25 MINUTES 04/30/2021 12:00:00 AM EDT [facility] ([facility] ) OFFICE OUTPATIENT VISIT 10 MINUTES 04/25/2021 12:00:00 AM EDT [facility] ([facility], ) Imm: Flublok Quadrivalent 18 years & older 0.5mL IM Influenz a 04/21/2021 12:00:00 AM EDT eC (Critical access hospital) OFFICE OUTPATIENT VISIT 25 MINUTES 04/14/2021 12:00:00 AM EDT [facility] ([facility], ) REVJ TOT KNEE ARTHRP FEM&ENTIRE TIBIAL COMPONENT 04/09 12:00:00 AM EDT [facility] ([facility], ) OFFICE OUTPATIENT VISIT 15 MINUTES 04/08/2021 12:00:00 AM EDT [facility] ([facility]) OFFICE OUTPATIENT VISIT 25 MINUTES 03/06/2021 12:00:00 AM EDT [facility] ([facility]) OFFICE OUTPATIENT VISIT 25 MINUTES 03/03/2021 12:00:00 AM EDT MEDENT ([facility]) OFFICE OUTPATIENT VISIT 25 MINUTES 02/24/2021 12:00:00 AM EDT [facility] ([facility]) OFFICE OUTPATIENT VISIT 15 MINUTES 01/24/2021 12:00:00 AM EDT [facility] ([facility]) Insertion, Non-Biodegradable Drug Delivery Implant 12/10/2020 12:00:00 AM EDT [facility] ([facility]) RMVL PROSTH TOT KNEE PROSTH MMA W/WO INSJ SPACER 12/10 12:00:00 AM EDT [facility] ([facility]) OFFICE OUTPATIENT VISIT 25 MINUTES 12/06/2020 12:00:00 AM EDT [facility] ([facility]) OFFICE OUTPATIENT VISIT 25 MINUTES 11/29/2020 12:00:00 AM EDT [facility] ([facility]) ECG ROUTINE ECG W/LEAST 12 LDS W/I&R <td>POCT AMB EKG</td><td>Routine</td><td>11/06/2020 10:28 AM EDT</td><td> Subacute bacterial endocarditis Atrial septal defect, secundum</td><td> </td> 11/06/2020 02:28:00 PM EDT Atrial septal defect, secundumSubacute bacterial endoc [facility] Atrial septal defect, secundum Subacute bacterial endocarditis OFFICE OUTPATIENT VISIT 25 MINUTES 11/05/2020 12:00:00 AM EDT [facility] ([facility]) OFFICE OUTPATIENT NEW 30 MINUTES 10/16/2020 12:00:00 A M EDT [facility] ([facility]) Results ID Date Data Source [id number] 04/28/2021 10:22:00 AM EDT [facility] ([facility]) Name Value Range Interpretation Code Description Data Deepika rce(s) Supporting Document(s) Glucose [Mass/volume] in Serum or Plasma 100 mg/dL 74-99 [facility] ([facility]) 100-125 mg/dL PRE-DIABETES/FASTING >126 mg/dL DIABETES/FASTING Urea nitrogen [Mass/volume] in Serum or Plasma 36 mg/dL 7-18 [facility] ([facility]) Creatinine 2.1 mg/dL 0.6-1.3 [facility] ([facility]) Sodium [Moles/volume] in Serum or Plasma 140 meq/L 136-145 [facility] ([facility]) Chloride [Moles/volume] in Serum or Plasma 104 meq/L 98-107 [facility] ([facility]) Potassium [Moles/volume] in Serum or Plasma 4.4 meq/L 3.5-5.1 [facility] ([facility]) Carbon dioxide, total [Moles/volume] in Serum or Plasma 28 meq/L 21 -32 [facility] ([facility]) Calcium [Mass/volume] in Serum or Plasma 9.6 mg/dL 8.5-10.1 [facility] ([facility]) Glomerular filtration rate/1.73 sq M pre dicted among blacks [Volume Rate/Area] in Serum or Plasma by Creatinine-based formula (MDRD) 38 mL/min [facility] <content>CHRONIC KIDNEY DISEASE STAGING PER NKF</content>
<content></content>
<content>STAGE I & II GFR >= 60 NORMAL TO MILDLY DECREASED</content>
<content>STAGE III GFR 30-59 MODERATELY DECREASED</content>
<content>STAGE IV GFR 15-29 SEVERELY DECREASED</content>
<content>STAGE V GFR <15 VERY LITTLE GFR LEFT</content>
<content>ESRD GFR <15 ON CLOTH PIECER</content>
<content></content> Glomerular filtration rate/1.73 sq M pre dicted among non-blacks [Volume Rate/Area] in Serum or Plasma by Creatinine-based formula (MDRD) 31 mL/min [facility] ([facility]) ID Date Data Source [id number] 04/21/2021 02:05:00 PM EDT [facility] ([facility]) Name Value Range Interpretation Code Description Data Deepika rce(s) Supporting Document(s) Ferritin [Mass/volume] in Serum or Plasma 188 ng/mL 26-388 [facility] ([facility]) ID Date Data Source [id number] 04/21/2021 02:05:00 PM EDT [facility] ([facility]) Name Value Range Interpretation Code Description Data Deepika rce(s) Supporting Document(s) Iron (Fe) 53 ug/dL 65-175 [facility] Total Iron Binding Capacity 220 ug/dL 250-450 NE DENT ([facility]) Percent Saturation 24.1 % 19.7-50.0 [facility] ([facility]) ID Date Data Source [id number] 04/21/2021 02:05:00 PM EDT [facility] ([facility]) Name Value Range Interpretation Code Description Data Deepika rce(s) Supporting Document(s) C reactive protein [Mass/volume] in Serum or Plasma by High sensitivity method 2.11 mg/dL 0.00-0.30 [facility] ([facility] ) ID Date Data Source [id number] 04/21/2021 02:05:00 PM EDT [facility] ([facility]) Name Value Range Interpretation Code Description Data Deepika rce(s) Supporting Document(s) Urea nitrogen [Mass/volume] in Serum or Plasma 34 mg/dL 7-18 [facility] ([facility]) Glucose [Mass/volume] in Serum or Plasma 81 mg/dL 74-99 [facility] ([facility]) 100-125 mg/dL PRE-DIABETES/FASTING >126 mg/dL DIABETES/FASTING Potassium [Moles/volume] in Serum or Plasma 5.3 meq/L 3.5-5.1 [facility] ([facility]) NOTE: RESULT VERIFIED. NO VISIBLE HEMOLYSIS. Sodium [Moles/volume] in Serum or Plasma 138 meq/L 136-145 [facility] ([facility]) Creatinine 2.6 mg/dL 0.6-1.3 [facility] Carbon dioxide, total [Moles/volume] in Serum or Plasma 27 meq/L 21 -32 [facility] ([facility]) Calcium [Mass/volume] in Serum or Plasma 9.7 mg/dL 8.5-10.1 [facility] Chloride [Moles/volume] in Serum or Plasma 103 meq/L 98-107 [facility] ([facility]) Glomerular filtration rate/1.73 sq M pre dicted among blacks [Volume Rate/Area] in Serum or Plasma by Creatinine-based formula (MDRD) 29 mL/min [facility] ([facility]) <content>CHRONIC KIDNEY DISEASE STAGING PER NKF</content>
<content></content>
<content>STAGE I & II GFR >= 60 NORMAL TO MILDLY DECREASED</content>
<content>STAGE III GFR 30-59 MODERATELY DECREASED</content>
<content>STAGE IV GFR 15-29 SEVERELY DECREASED</content>
<content>STAGE V GFR <15 VERY LITTLE GFR LEFT</content>
<content>ESRD GFR <15 ON CLOTH PIECER</content>
<content></content> Glomerular filtration rate/1.73 sq M pre dicted among non-blacks [Volume Rate/Area] in Serum or Plasma by Creatinine-based formula (MDRD) 24 mL/min [facility] ([facility]) ID Date Data Source [id number] 04/21/2021 02:05:00 PM EDT [facility] ([facility]) Name Value Range Interpretation Code Description Data Deepika rce(s) Supporting Document(s) Erythrocyte sedimentation rate by Westergren method 57 mm/hr 0-15 [facility] ([facility]) ID Date Data Source [id number] 04/21/2021 02:05:00 PM EDT [facility] ([facility]) Name Value Range Interpretation Code Description Data Deepika rce(s) Supporting Document(s) Leukocytes [#/volume] in Blood by Automated count 9.3 x10*3/UL 4.1-10 .9 [facility] Hematocrit [Volume Fraction] of Blood by Automated count 29.9 % 3 7.0-51.0 [facility] ([facility]) Erythrocytes [#/volume] in Blood by Automated count 3.20 x10*6/UL 4.2 0-6.30 [facility] ([facility]) Hemoglobin [Mass/volume] in Blood 10.3 g/dL 12.0-18.0 [facility] ([facility]) NOTE: RESULT VERIFIED. MCHC 34.4 g/dL 31.0-38.0 [facility] ([facility]) MCV 93.6 fL 80.0-97.0 [facility] ([facility]) MCH 32.2 pg 26.0-32.0 [facility] ([facility]) Erythrocyte distribution width [Ratio] by Automated count 13.0 % 11.6-13.7 [facility] ([facility]) MPV 8.0 FL 7.8-11.0 [facility] Platelets [#/volume] in Blood by Automated count 302 x10*3/UL 140-440 [facility] ([facility]) Mid % 4.8 % 1.7-9.3 [facility] Lymph % 15.8 % 10.0-58.5 [facility] ([facility]) Lymph # 1.4 x10*3/UL 0.6-4.1 [facility] ([facility]) Neut % 79.4 % 37.0-92.0 [facility]) Mid # 0.5 x10*3/UL 0.1-0.6 [facility] ([facility]) Neut # 7.4 x10*3/UL 2.0-7.8 [facility] ([facility]) ID Date Data Source [id number] 04/04/2021 09:20:00 AM EDT [facility] Name Value Range Interpretation Code Description Data Deepika rce(s) Supporting Document(s) SARS-CoV-2 (COVID-19) RNA [Presence] in Respiratory specimen by JOAQUIM with probe detection Not Detected [facility] This lab was ordered by [facility] and reported by [facility]. ID Date Data Source [id number] 03/25/2021 02:23:00 PM EDT [facility] ([facility]) Name Value Range Interpretation Code Description Data Depeika rce(s) Supporting Document(s) Glucose [Mass/volume] in Serum or Plasma 91 mg/dL 74-99 [facility] ([facility]) 100-125 mg/dL PRE-DIABETES/FASTING >126 mg/dL DIABETES/FASTING Urea nitrogen [Mass/volume] in Serum or Plasma 38 mg/dL 7-18 [facility] ([facility]) Creatinine 2.6 mg/dL 0.6-1.3 [facility] Sodium [Moles/volume] in Serum or Plasma 139 meq/L 136-145 [facility] ([facility]) Potassium [Moles/volume] in Serum or Plasma 4.3 meq/L 3.5-5.1 [facility] ([facility]) Chloride [Moles/volume] in Serum or Plasma 104 meq/L 98-107 [facility] ([facility]) Carbon dioxide, total [Moles/volume] in Serum or Plasma 25 meq/L 21 -32 [facility] ([facility]) Alkaline phosphatase isoenzyme [Units/volume] in Serum or Pl asma 104 mg/dL 46-116 [facility] Calcium [Mass/volume] in Serum or Plasma 9.4 mg/dL 8.5-10.1 [facility] Total Bilirubin 0.5 mg/dL 0.2-1.0 [facility] Alanine aminotransferase [Enzymatic activity/volume] in Seru m or Plasma 26 U/L 12-78 [facility] ([facility]) Aspartate aminotransferase [Enzymatic activity/volume] in Serum or Plasma 27 U/L 15-37 [facility] ([facility] ) Proteinase 3 Ab [Units/volume] in Serum 7.5 g/dL 6.4-8.2 [facility] ([facility]) Albumin [Mass/volume] in Serum or Plasma 3.4 g/dL 3.4-5.0 [facility] A/G Ratio 0.83 CALC 1.00-1.90 [facility] ([facility]) Glomerular filtration rate/1.73 sq M pre dicted among non-blacks [Volume Rate/Area] in Serum or Plasma by Creatinine-based formula (MDRD) 24 mL/min [facility] ([facility]) Glomerular filtration rate/1.73 sq M pre dicted among blacks [Volume Rate/Area] in Serum or Plasma by Creatinine-based formula (MDRD) 29 mL/min [facility] ([facility]) <content>CHRONIC KIDNEY DISEASE STAGING PER NKF</content>
<content></content>
<content>STAGE I & II GFR >= 60 NORMAL TO MILDLY DECREASED</content>
<content>STAGE III GFR 30-59 MODERATELY DECREASED</content>
<content>STAGE IV GFR 15-29 SEVERELY DECREASED</content>
<content>STAGE V GFR <15 VERY LITTLE GFR LEFT</content>
<content>ESRD GFR <15 ON CLOTH PIECER</content>
<content></content> ID Date Data Source [id number] 03/25/2021 02:23:00 PM EDT [facility] ([facility]) Name Value Range Interpretation Code Description Data Deepika rce(s) Supporting Document(s) Erythrocytes [#/volume] in Blood by Automated count 3.20 x10*6/UL 4.2 0-6.30 [facility] ([facility]) Leukocytes [#/volume] in Blood by Automated count 5.0 x10*3/UL 4.1-10 .9 [facility] ([facility]) Hematocrit [Volume Fraction] of Blood by Automated count 29.5 % 3 7.0-51.0 [facility] ([facility]) Hemoglobin [Mass/volume] in Blood 10.2 g/dL 12.0-18.0 [facility] ([facility]) NOTE: RESULT VERIFIED. MCH 31.7 pg 26.0-32.0 [facility]) MCHC 34.5 g/dL 31.0-38.0 [facility]) MCV 92.0 fL 80.0-97.0 [facility]) Erythrocyte distribution width [Ratio] by Automated count 12.0 % 11.6-13.7 [facility] ([facility]) Platelets [#/volume] in Blood by Automated count 194 x10*3/UL 140-440 [facility] ([facility]) MPV 8.5 FL 7.8-11.0 [facility]) Lymph % 23.9 % 10.0-58.5 [facility]) Lymph # 1.2 x10*3/UL 0.6-4.1 [facility] ([facility]) Mid % 8.1 % 1.7-9.3 [facility]) Neut % 68.0 % 37.0-92.0 [facility]) Mid # 0.4 x10*3/UL 0.1-0.6 [facility] ([facility]) Neut # 3.4 x10*3/UL 2.0-7.8 [facility] ([facility]) ID Date Data Source [id number] 03/07/2021 02:12:00 PM EDT [facility] ([facility]) Name Value Range Interpretation Code Description Data Deepika rce(s) Supporting Document(s) Erythrocyte sedimentation rate by Westergren method 106 mm/hr 0-20 [facility] ([facility]) ID Date Data Source [id number] 03/07/2021 02:12:00 PM EDT [facility] ([facility]) Name Value Range Interpretation Code Description Data Deepika rce(s) Supporting Document(s) Red Blood Count 2.94 10 4.30-6.10 [facility] ([facility]) White Blood Count 5.3 10 4.0-10.0 [facility] ([facility]) Hemoglobin 9.7 g/dL 13.5-17.5 [facility] ([facility]) Hematocrit 29.9 % 42.0-52.0 [facility] ([facility]) Mean Corpuscular Volume 101.7 fl 80.0-96.0 [facility] ([facility]) Mean Corpuscular Hemoglobin 33.0 pg 27.0-33.0 ME DENT ([facility]) Mean Corpuscular HGB Conc 32.4 g/dL 32.0-36.5 MEDE NT ([facility]) Platelet Count, Automated 252 10 150-450 MEDE NT ([facility]) Neutrophils % 52.9 % 36.0-66.0 [facility] ([facility]) Red Cell Distribution Width 11.6 % 11.5-14.5 ME DENT ([facility]) Lymph % 26.6 % 24.0-44.0 [facility]) [place]ett % 11.0 % 2.0-8.0 [facility]) Eos % 8.7 % 0.0-3.0 [facility] Nucleated Red Blood Cell % 0.0 % 0-0 MED ENT ([facility]) Baso % 0.2 % 0.0-1.0 [facility] Immature Granulocyte % 0.6 % 0-3.0 [facility] ([facility]) Lymph # 1.4 10 1.5-5.0 [facility] Neutrophils # 2.8 10 1.5-8.5 [facility] ([facility]) Pickett # 0.6 10 0.0-0.8 [facility]) Baso # 0.0 10 0.0-0.2 [facility]) Eos # 0.5 10 0.0-0.5 [facility] ID Date Data Source [id number] 03/07/2021 02:12:00 PM EDT [facility] ([facility]) Name Value Range Interpretation Code Description Data Deepika rce(s) Supporting Document(s) C reactive protein [Mass/volume] in Serum or Plasma by High sensitivity method 2.78 mg/dL 0.00-0.30 [facility] ([facility] ) ID Date Data Source [id number] 03/03/2021 02:47:00 PM EDT [facility] ([facility]) Name Value Range Interpretation Code Description Data Deepika rce(s) Supporting Document(s) Glucose [Mass/volume] in Serum or Plasma 102 mg/dL 74-99 [facility] ([facility]) 100-125 mg/dL PRE-DIABETES/FASTING >126 mg/dL DIABETES/FASTING Sodium [Moles/volume] in Serum or Plasma 137 meq/L 136-145 [facility] ([facility]) Creatinine 2.2 mg/dL 0.6-1.3 [facility] ([facility]) NOTE: RESULT VERIFIED. Urea nitrogen [Mass/volume] in Serum or Plasma 40 mg/dL 7-18 [facility] ([facility]) NOTE: RESULT VERIFIED. Potassium [Moles/volume] in Serum or Plasma 4.3 meq/L 3.5-5.1 [facility] ([facility]) Carbon dioxide, total [Moles/volume] in Serum or Plasma 28 meq/L 21 -32 [facility] ([facility]) Chloride [Moles/volume] in Serum or Plasma 102 meq/L 98-107 [facility] ([facility]) Alkaline phosphatase isoenzyme [Units/volume] in Serum or Pl asma 101 mg/dL 46-116 [facility] ([facility]) Calcium [Mass/volume] in Serum or Plasma 9.5 mg/dL 8.5-10.1 [facility] Total Bilirubin 0.5 mg/dL 0.2-1.0 [facility] ([facility]) Albumin [Mass/volume] in Serum or Plasma 3.1 g/dL 3.4-5.0 [facility] ([facility]) Aspartate aminotransferase [Enzymatic activity/volume] in Serum or Plasma 31 U/L 15-37 [facility] ([facility] ) Alanine aminotransferase [Enzymatic activity/volume] in Seru m or Plasma 28 U/L 12-78 [facility] ([facility]) Proteinase 3 Ab [Units/volume] in Serum 8.0 g/dL 6.4-8.2 [facility] ([facility]) A/G Ratio 0.63 CALC 1.00-1.90 [facility] ([facility]) Glomerular filtration rate/1.73 sq M pre dicted among blacks [Volume Rate/Area] in Serum or Plasma by Creatinine-based formula (MDRD) 36 mL/min [facility] <content>CHRONIC KIDNEY DISEASE STAGING PER NKF</content>
<content></content>
<content>STAGE I & II GFR >= 60 NORMAL TO MILDLY DECREASED</content>
<content>STAGE III GFR 30-59 MODERATELY DECREASED</content>
<content>STAGE IV GFR 15-29 SEVERELY DECREASED</content>
<content>STAGE V GFR <15 VERY LITTLE GFR LEFT</content>
<content>ESRD GFR <15 ON CLOTH PIECER</content>
<content></content> Glomerular filtration rate/1.73 sq M pre dicted among non-blacks [Volume Rate/Area] in Serum or Plasma by Creatinine-based formula (MDRD) 29 mL/min [facility] ID Date Data Source [id number] 03/03/2021 02:47:00 PM EDT [facility] Name Value Range Interpretation Code Description Data Deepika rce(s) Supporting Document(s) Leukocytes [#/volume] in Blood by Automated count 5.9 x10*3/UL 4.1-10 .9 [facility] NOTE: CBC VERIFIED Erythrocytes [#/volume] in Blood by Automated count 2.95 x10*6/UL 4.2 0-6.30 [facility] MCV 94.2 fL 80.0-97.0 [facility] ([facility]) Hematocrit [Volume Fraction] of Blood by Automated count 27.8 % 3 7.0-51.0 [facility] MCH 33.8 pg 26.0-32.0 [facility] ([facility]) Hemoglobin [Mass/volume] in Blood 10.0 g/dL 12.0-18.0 [facility] ([facility]) MCHC 35.9 g/dL 31.0-38.0 [facility] Erythrocyte distribution width [Ratio] by Automated count 12.1 % 11.6-13.7 [facility] ([facility]) Platelets [#/volume] in Blood by Automated count 188 x10*3/UL 140-440 [facility] ([facility]) MPV 8.2 FL 7.8-11.0 [facility]) Lymph % 16.7 % 10.0-58.5 [facility] Lymph # 0.9 x10*3/UL 0.6-4.1 [facility] ([facility]) Mid % 4.8 % 1.7-9.3 [facility]) Neut % 78.5 % 37.0-92.0 [facility] ([facility]) Neut # 4.6 x10*3/UL 2.0-7.8 [facility] ([facility]) Mid # 0.4 x10*3/UL 0.1-0.6 [facility] ([facility]) ID Date Data Source ERYTHROCYTE SEDIMENTATION RATE 02/17/2021 12:00:00 AM EDT eC W1 ([facility]) Name Value Range Interpretation Code Description Data Deepika rce(s) Supporting Document(s) 63 0-20 ERYTHROCYTE SEDIMENTATION RATE eCW1 ([facility]) ID Date Data Source C REACTIVE PROTEIN QUANTITATIV (At [facility]) 02/17/2021 12:00 :00 AM EDT eCW1 ([facility]) Name Value Range Interpretation Code Description Data Deepika rce(s) Supporting Document(s) 0.68 0.00-0.30 C REACTIVE PROTEIN QUANTI TATIV eCW1 ([facility]) ID Date Data Source CBC with Differential 02/17/2021 12:00:00 AM EDT eCW1 (Pending sale to [facility]) Name Value Range Interpretation Code Description Data Deepika rce(s) Supporting Document(s) 9.8 13.5-17.5 HEMOGLOBIN eCW1 ([facility]) 5.6 4.0-10.0 WHITE BLOOD COUNT eCW1 ([facility]ly [facility]) 2.97 4.30-6.10 RED BLOOD COUNT eCW1 ([facility]) 33.0 27.0-33.0 MEAN CORPUSCULAR HEMOGLOB IN eCW1 ([facility]) 104.4 80.0-96.0 MEAN CORPUSCULAR VOLUME e CW1 ([facility]) 31.6 32.0-36.5 MEAN CORPUSCULAR HGB CONC eCW1 ([facility]) 31.0 42.0-52.0 HEMATOCRIT eCW1 ([facility]) 12.6 11.5-14.5 RED CELL DISTRIBUTION WID TH eCW1 ([facility]) 59.8 36.0-66.0 NEUTROPHILS % eCW1 ([facility]) 179 150-450 PLATELET COUNT, AUTOMATED eCW1 ([facility]) 8.0 0.0-3.0 EOS % eCW1 ([facility]) 22.9 24.0-44.0 LYMPH % eCW1 ([facility]) 8.6 2.0-8.0 MONO % eCW1 ([facility]) 0.5 0.0-1.0 BASO % eCW1 ([facility]) 1.3 1.5-5.0 LYMPH # eCW1 ([facility]) 0.5 0.0-0.8 MONO # eCW1 ([facility]) 3.4 1.5-8.5 NEUTROPHILS # eCW1 ([facility]) 0.5 0.0-0.5 EOS # eCW1 ([facility]) 0.0 0.0-0.2 BASO # eCW1 ([facility]) ID Date Data Source [id number] 12/05/2020 11:45:00 AM EDT [facility] Name Value Range Interpretation Code Description Data Deepika rce(s) Supporting Document(s) SARS-CoV-2 (COVID-19) RNA [Presence] in Respiratory specimen by JOAQUIM with probe detection Not Detected [facility] This lab was ordered by [facility] and reported by [facility]. ID Date Data Source [id number] 11/15/2020 09:47:00 AM EDT MED[facility] ([facility]) Name Value Range Interpretation Code Description Data Deepika rce(s) Supporting Document(s) Urea nitrogen [Mass/volume] in Serum or Plasma 29 mg/dL 7-18 [facility] ([facility]) Creatinine 2.5 mg/dL 0.6-1.3 [facility] ([facility]) NOTE: RESULT VERIFIED. Glucose [Mass/volume] in Serum or Plasma 107 mg/dL 74-99 [facility] ([facility]) 100-125 mg/dL PRE-DIABETES/FASTING >126 mg/dL DIABETES/FASTING Sodium [Moles/volume] in Serum or Plasma 141 meq/L 136-145 [facility] ([facility]) Potassium [Moles/volume] in Serum or Plasma 4.0 meq/L 3.5-5.1 [facility] ([facility]) Carbon dioxide, total [Moles/volume] in Serum or Plasma 26 meq/L 21 -32 [facility] ([facility]) Chloride [Moles/volume] in Serum or Plasma 103 meq/L 98-107 [facility] ([facility]) Calcium [Mass/volume] in Serum or Plasma 9.3 mg/dL 8.5-10.1 [facility] ([facility]) Glomerular filtration rate/1.73 sq M pre dicted among blacks [Volume Rate/Area] in Serum or Plasma by Creatinine-based formula (MDRD) 31 mL/min [facility] ([facility]) <content>CHRONIC KIDNEY DISEASE STAGING PER NKF</content>
<content></content>
<content>STAGE I & II GFR >= 60 NORMAL TO MILDLY DECREASED</content>
<content>STAGE III GFR 30-59 MODERATELY DECREASED</content>
<content>STAGE IV GFR 15-29 SEVERELY DECREASED</content>
<content>STAGE V GFR <15 VERY LITTLE GFR LEFT</content>
<content>ESRD GFR <15 ON CLOTH PIECER</content>
<content></content> Glomerular filtration rate/1.73 sq M pre dicted among non-blacks [Volume Rate/Area] in Serum or Plasma by Creatinine-based formula (MDRD) 25 mL/min [facility] ([facility]) ID Date Data Source [id number] 11/11/2020 10:04:00 AM EDT [facility] ([facility]) Name Value Range Interpretation Code Description Data Deepika rce(s) Supporting Document(s) Glucose [Mass/volume] in Serum or Plasma 134 mg/dL 74-99 [facility] ([facility]) 100-125 mg/dL PRE-DIABETES/FASTING >126 mg/dL DIABETES/FASTING Urea nitrogen [Mass/volume] in Serum or Plasma 24 mg/dL 7-18 [facility] ([facility]) Sodium [Moles/volume] in Serum or Plasma 141 meq/L 136-145 [facility] ([facility]) Creatinine 2.4 mg/dL 0.6-1.3 [facility] Chloride [Moles/volume] in Serum or Plasma 101 meq/L 98-107 [facility] ([facility]) Potassium [Moles/volume] in Serum or Plasma 3.9 meq/L 3.5-5.1 [facility] ([facility]) Carbon dioxide, total [Moles/volume] in Serum or Plasma 28 meq/L 21 -32 [facility] ([facility]) Glomerular filtration rate/1.73 sq M pre dicted among non-blacks [Volume Rate/Area] in Serum or Plasma by Creatinine-based formula (MDRD) 27 mL/min [facility] ([facility]) Calcium [Mass/volume] in Serum or Plasma 9.4 mg/dL 8.5-10.1 [facility] ([facility]) Glomerular filtration rate/1.73 sq M pre dicted among blacks [Volume Rate/Area] in Serum or Plasma by Creatinine-based formula (MDRD) 32 mL/min [facility] ([facility]) <content>CHRONIC KIDNEY DISEASE STAGING PER NKF</content>
<content></content>
<content>STAGE I & II GFR >= 60 NORMAL TO MILDLY DECREASED</content>
<content>STAGE III GFR 30-59 MODERATELY DECREASED</content>
<content>STAGE IV GFR 15-29 SEVERELY DECREASED</content>
<content>STAGE V GFR <15 VERY LITTLE GFR LEFT</content>
<content>ESRD GFR <15 ON CLOTH PIECER</content>
<content></content> ID Date Data Source [id number] 11/05/2020 09:33:00 AM EDT [facility] ([facility]) Name Value Range Interpretation Code Description Data Deepika rce(s) Supporting Document(s) Glucose [Mass/volume] in Serum or Plasma 121 mg/dL 74-99 [facility] ([facility]) 100-125 mg/dL PRE-DIABETES/FASTING >126 mg/dL DIABETES/FASTING Sodium [Moles/volume] in Serum or Plasma 139 meq/L 136-145 [facility] ([facility]) Urea nitrogen [Mass/volume] in Serum or Plasma 41 mg/dL 7-18 [facility] ([facility]) Creatinine 3.1 mg/dL 0.6-1.3 [facility] ([facility]) Carbon dioxide, total [Moles/volume] in Serum or Plasma 30 meq/L 21 -32 [facility] ([facility]) Chloride [Moles/volume] in Serum or Plasma 98 meq/L 98-107 [facility] ([facility]) Potassium [Moles/volume] in Serum or Plasma 3.3 meq/L 3.5-5.1 [facility] ([facility]) Calcium [Mass/volume] in Serum or Plasma 9.1 mg/dL 8.5-10.1 [facility] ([facility]) Glomerular filtration rate/1.73 sq M pre dicted among blacks [Volume Rate/Area] in Serum or Plasma by Creatinine-based formula (MDRD) 24 mL/min [facility] ([facility]) <content>CHRONIC KIDNEY DISEASE STAGING PER NKF</content>
<content></content>
<content>STAGE I & II GFR >= 60 NORMAL TO MILDLY DECREASED</content>
<content>STAGE III GFR 30-59 MODERATELY DECREASED</content>
<content>STAGE IV GFR 15-29 SEVERELY DECREASED</content>
<content>STAGE V GFR <15 VERY LITTLE GFR LEFT</content>
<content>ESRD GFR <15 ON CLOTH PIECER</content>
<content></content> Glomerular filtration rate/1.73 sq M pre dicted among non-blacks [Volume Rate/Area] in Serum or Plasma by Creatinine-based formula (MDRD) 20 mL/min [facility] ID Date Data Source [id number] 11/05/2020 09:33:00 AM EDT [facility] Name Value Range Interpretation Code Description Data Deepika rce(s) Supporting Document(s) Leukocytes [#/volume] in Blood by Automated count 5.3 x10*3/UL 4.1-10 .9 [facility] ([facility]) Hemoglobin [Mass/volume] in Blood 11.2 g/dL 12.0-18.0 [facility] NOTE: RESULT VERIFIED. Erythrocytes [#/volume] in Blood by Automated count 3.51 x10*6/UL 4.2 0-6.30 [facility] Hematocrit [Volume Fraction] of Blood by Automated count 32.6 % 3 7.0-51.0 [facility] MCH 31.8 pg 26.0-32.0 [facility]) MCV 92.7 fL 80.0-97.0 [facility] ([facility]) Platelets [#/volume] in Blood by Automated count 301 x10*3/UL 140-440 [facility] Erythrocyte distribution width [Ratio] by Automated count 13.8 % 11.6-13.7 [facility] MCHC 34.3 g/dL 31.0-38.0 [facility] ([facility]) MPV 7.9 FL 7.8-11.0 [facility] ([facility]) Mid % 5.0 % 1.7-9.3 [facility] Lymph % 16.1 % 10.0-58.5 [facility] Neut % 78.9 % 37.0-92.0 [facility] Lymph # 0.8 x10*3/UL 0.6-4.1 [facility] ([facility]) Mid # 0.3 x10*3/UL 0.1-0.6 [facility] ([facility]) Neut # 4.2 x10*3/UL 2.0-7.8 [facility] ([facility]) ID Date Data Source [id number] 10/28/2020 10:42:00 PM EDT [facility] ([facility]) Name Value Range Interpretation Code Description Data Deepika rce(s) Supporting Document(s) Influenza A Amplification Laboratory test result [facility] ([facility]) Negative results do not preclude influen za or RSV virus infection and should not be used as the sole basis for treatment or other patient management decisions. Influenza B Amplification Laboratory test result [facility] ([facility]) Negative results do not preclude influen za or RSV virus infection and should not be used as the sole basis for treatment or other patient management decisions. RSV Amplification Laboratory test result [facility] ([facility]) Negative results do not preclude influen za or RSV virus infection and should not be used as the sole basis for treatment or other patient management decisions. Laboratory test finding (navigational concept) Laboratory test result [facility] ([facility]) A false negative result may occur [...] pathogens. DISCLAIMER: Testing was performed using the [employer] SARS-CoV-2 test. This test was developed and its performance characteristics determined by [employer]. This test has not been FDA cleared [...] or revoked sooner. ID Date Data Source [id number] 10/28/2020 10:42:00 PM EDT [place] Name Value Range Interpretation Code Description [facility] Supporting Document(s) SARS coronavirus 2 RNA [Presence] in Res piratory specimen by JOAQUIM with probe detection NEGATIVE [place] This lab was ordered by [facility] a nd reported by [facility]. ID Date Data Source [id number] 10/28/2020 09:09:00 PM EDT [facility] ([facility]) Name Value Range Interpretation Code Description Data [facility] rce(s) Supporting Document(s) White Blood Count 5.0 10 4.0-10.0 [facility] ([facility]) Red Blood Count 2.03 10 4.30-6.10 [facility] ([facility]) Hemoglobin 6.5 g/dL 13.5-17.5 Below lower panic limits [facility] ([facility]) Hematocrit 20.9 % 42.0-52.0 [facility] ([facility]) Mean Corpuscular Volume 103.0 fl 80.0-96.0 [facility] ([facility]) Mean Corpuscular HGB Conc 31.1 g/dL 32.0-36.5 [facility] NT ([facility]) Red Cell Distribution Width 15.0 % 11.5-14.5 [facility] ([facility]) Mean Corpuscular Hemoglobin 32.0 pg 27.0-33.0 [facility] ([facility]) Platelet Count, Automated 203 10 150-450 [facility] ([facility]) Neutrophils % 64.2 % 36.0-66.0 [facility] ([facility]) Lymph % 16.4 % 24.0-44.0 [facility] Eos % 7.3 % 0.0-3.0 [facility] Pickett % 11.1 % 2.0-8.0 [facility] Baso % 0.4 % 0.0-1.0 [facility] Nucleated Red Blood Cell % 0.0 % 0-0 [facility] ([facility]) Immature Granulocyte % 0.6 % 0-3.0 [facility] ([facility]) Neutrophils # 3.2 10 1.5-8.5 [facility] ([facility]) Pickett # 0.6 10 0.0-0.8 [facility] Lymph # 0.8 10 1.5-5.0 [facility] Eos # 0.4 10 0.0-0.5 [facility] Baso # 0.0 10 0.0-0.2 [facility] ID Date Data Source [id number] 10/28/2020 07:06:00 PM EDT [facility] ([facility]) Name Value Range Interpretation Code Description Data Deepika rce(s) Supporting Document(s) Laboratory test finding (navigational concept) 24.0 % 38.0-51.0 [facility] ([facility]) Laboratory test finding (navigational concept) 123 mg/dL 70-105 [facility] ([facility]) Laboratory test finding (navigational concept) 143 meq/L 136-145 [facility] ([facility]) Laboratory test finding (navigational concept) 3.4 meq/L 3.5-5.1 [facility] ([facility]) Laboratory test finding (navigational concept) 106 meq/L 98-109 [facility] ([facility]) Laboratory test finding (navigational concept) 28.0 MM/L 23.0-27.0 [facility] ([facility]) Laboratory test finding (navigational concept) 4.8 mg/dL 4.5-5.3 [facility] ([facility]) Laboratory test finding (navigational concept) 2.5 mg/dL 0.6-1.3 [facility] ([facility]) Laboratory test finding (navigational concept) 25 mg/dL 8-26 [facility] ([facility]) ID Date Data Source [id number] 10/28/2020 06:48:00 PM EDT [facility] ([facility]) Name Value Range Interpretation Code Description Data Deepika rce(s) Supporting Document(s) Prothrombin Time 14.8 s 12.5-14.3 [facility] ([facility]) Inr 1.13 [facility] THERAPUTIC HUMAN INR VALUES INDICATIONS NORMAL RANGES PROPHYLAXIS/TREATMENT OF: VENOUS THROMBOSIS 2.0-3.0 PULMONARY EMBOLISM 2.0-3.0 PREVENTION OF SYSTEMIC EMBOLISM FROM: TISSUE HEART VALVES 2.0-3.0 ACUTE MYOCARDIAL INFARCTION 2.0-3.0 VALVULAR HEART DISEASE 2.0-3.0 ATRIAL FIBRILLATION 2.0-3.0 MECHANICAL VALVES(HIGH RISK) 2.5-3.5 RECURRENT MYOCARDIAL INFARCTION 2.5-3.5 ID Date Data Source [id number] 10/28/2020 06:48:00 PM EDT [facility] ([facility]) Name Value Range Interpretation Code Description Data Deepika rce(s) Supporting Document(s) Hemoglobin 7.9 g/dL 13.5-17.5 [facility] ([facility]) Red Blood Count 2.42 10 4.30-6.10 [facility] ([facility]) White Blood Count 5.9 10 4.0-10.0 [facility] ([facility]) Mean Corpuscular Volume 103.7 fl 80.0-96.0 [facility] Hematocrit 25.1 % 42.0-52.0 [facility] Mean Corpuscular Hemoglobin 32.6 pg 27.0-33.0 [facility] ([facility]) Platelet Count, Automated 231 10 150-450 [facility] NT ([facility]) Mean Corpuscular HGB Conc 31.5 g/dL 32.0-36.5 [facility] ([facility]) Red Cell Distribution Width 14.9 % 11.5-14.5 [facility] ([facility]) Pickett % 10.1 % 2.0-8.0 [facility] Lymph % 16.2 % 24.0-44.0 [facility] Neutrophils % 65.7 % 36.0-66.0 [facility] ([facility]) Immature Granulocyte % 0.3 % 0-3.0 [facility] ([facility]) Eos % 7.2 % 0.0-3.0 [facility]) Baso % 0.5 % 0.0-1.0 [facility]) Nucleated Red Blood Cell % 0.0 % 0-0 [facility] ([facility]) Neutrophils # 3.9 10 1.5-8.5 [facility] ([facility]) Lymph # 1.0 10 1.5-5.0 [facility]) Pickett # 0.6 10 0.0-0.8 [facility] Eos # 0.4 10 0.0-0.5 [facility] Baso # 0.0 10 0.0-0.2 [facility]) ID Date Data Source [id number] 10/28/2020 06:48:00 PM EDT [facility] ([facility]) Name Value Range Interpretation Code Description Data Deepika rce(s) Supporting Document(s) Packed Cells Laboratory test result [facility] TRANSFUSED PRODUCT: PACKED CELLS COUNT: 1 ID Date Data Source [id number] 10/28/2020 06:48:00 PM EDT [facility] ([facility]) Name Value Range Interpretation Code Description Data Deepika rce(s) Supporting Document(s) Blood Type Laboratory test result [facility] ([facility]) AB Screen (Indirect Sloan)Vis Laboratory test result [facility] ([facility]) ID Date Data Source [id number] 10/28/2020 06:48:00 PM EDT [facility] ([facility]) Name Value Range Interpretation Code Description Data Deepika rce(s) Supporting Document(s) Lipoprotein lipase [Enzymatic activity/volume] in Serum or P lasma 315 U/L 73-393 [facility] ([facility]) Thyrotropin [Units/volume] in Serum or Plasma by Detec tion limit <= 0.05 mIU/L 1.750 uIU/ML 0.358-3.740 [facility] Thyroxine (T4) free [Mass/volume] in Serum or Plasma 0.71 ng/dL 0.76- 1.46 [facility] ID Date Data Source [id number] 10/28/2020 06:48:00 PM EDT [facility] ([facility]) Name Value Range Interpretation Code Description Data Deepika rce(s) Supporting Document(s) Creatinine For GFR 2.18 mg/dL 0.70-1.30 [facility] ([facility]) Blood Urea Nitrogen 27 mg/dL 7-18 [facility] ([facility]) Glucose, Fasting 133 mg/dL 70-100 [facility] ([facility]) Glomerular Filtration Rate 31.7 [facility] ([facility]) <content>Units are mL/min/1.73 m2</content>
<content></content>
<content>Chronic Kidney Disease Staging per NKF:</content>
<content></content>
<content>Stage I & II GFR >=60 Normal to Mildly Decreased</content>
<content>Stage III GFR 30- 59 Moderately Decreased</content>
<content>Stage IV GFR 15-29 Severely Decreased</content>
<content>Stage V GFR <15 Very Little GFR Left</content>
<content>ESRD GFR <15 on CLOTH PIECER</content>
<content></content> Sodium Level 145 meq/L 136-145 [facility] ([facility]) Potassium Serum 3.5 meq/L 3.5-5.1 [facility] ([facility]) Chloride Level 108 meq/L 98-107 [facility] ([facility]) Calcium Level 9.0 mg/dL 8.8-10.2 [facility] ([facility]) Anion Gap 8 meq/L 8-16 [facility] Carbon Dioxide Level 29 meq/L 21-32 [facility] ([facility]) ID Date Data Source [id number] 10/28/2020 06:48:00 PM EDT [facility] ([facility]) Name Value Range Interpretation Code Description Data Deepika rce(s) Supporting Document(s) Alt/SGPT 14 U/L 12-78 [facility] ([facility]) Ast/Sgot 20 U/L 7-37 [facility] ([facility]) Alkaline Phosphatase 99 U/L 45-117 [facility] ([facility]) Bilirubin,Total 1.2 mg/dL 0.2-1.0 [facility] ([facility]) Bilirubin,Direct 0.1 mg/dL 0.0-0.2 [facility] ([facility]) Total Protein 7.3 GM/DL 6.4-8.2 [facility] ([facility]) Albumin 2.1 GM/DL 3.2-5.2 [facility] ([facility]) Albumin/Globulin Ratio 0.4 [facility] ([facility]) ID Date Data Source [id number] 10/28/2020 06:48:00 PM EDT [facility] ([facility]) Name Value Range Interpretation Code Description Data Deepika e(s) Supporting Document(s) CPK Creatine Phosphokinase 136 U/L 39-308 [facility] ([facility]) Troponin I Laboratory test result [facility] ([facility]) <content>Troponin I Reference Interval f or Siemens [place] LOCI:</content>
<content></content>
<content>99th Percentile= 0.00-0.045 ng/ml</content>
<content></content>
<content>Risk Stratification:</content>
<content><= 0.10 ng/ml Decreased Risk for Adverse Clinical</content>
<content>Events.</content>
<content>0.10-1.50 ng/ml Increased Risk for Adverse Clinical</content>
<content>Events. Evaluation of additional</content>
<content>criterion and/or repeat testing in 2-6</content>
<content>hours is suggested to rule out myocardial</content>
<content>damage.</content>
<content>>= 1.50 ng/ml Indicative of Myocardial Injury.</content>
<content></content> MB/CK Relative Index 2.35 [facility] ([facility]) <content>DIAGNOSIS CRITERIA</content>
<content>MMB ng/ml Relative Index (RI)</content>
<content>NON-AMI < or = 5 N/A</content>
<content>PHELPS ZONE > 5 < or = 4</content>
<content>AMI > 5 > 4</content>
<content></content> CK-MB Value Mass 3.2 ng/mL [facility] ([facility]) ID Date Data Source [id number] 10/28/2020 06:48:00 PM EDT [facility]) Name Value Range Interpretation Code Description Data Deepika rce(s) Supporting Document(s) aPTT in Blood by Coagulation assay 43.9 s 24.2-38.5 [facility]) ID Date Data Source [id number] 10/02/2020 12:29:00 PM EST [facility]) Name Value Range Interpretation Code Description Data Deepika rce(s) Supporting Document(s) Appearance, Urine RFX Laboratory test result [facility] Color, Urine RFX Laboratory test result [facility] PH,Urine RFX 6.0 units 5.0-9.0 [facility] Specific Rush Ur Auto RFX 1.018 1.002-1.035 [facility] Protein, Urine Auto RFX Laboratory test result [facility] ([facility]) Glucose, Urine (Ua) Auto RFX Laboratory test result [facility] ([facility]) Ketone, Urine Auto RFX Laboratory test result [facility] ([facility]) Urobilinogen, Urine Auto RFX 0.2 mg/dL 0.0-2.0 [facility] Bilirubin, Urine Auto RFX Laboratory test result [facility] ([facility]) Nitrite, Urine Auto RFX Laboratory test result [facility] ([facility]) Leukocyte Esterase Ur Auto RFX Laboratory test result [facility] ([facility]) WBC, Urine Auto RFX 1 /HPF 0-3 [facility] Blood, Urine Blood RFX Laboratory test result [facility] ([facility]) RBC, Urine Auto RFX 11 /HPF 0-3 [facility] ([facility]) Bacteria, Urine Auto RFX Laboratory test result [facility] ([facility]) Squam Epithelial Cell Ur Aurfx 0 /HPF 0-6 [facility] ([facility]) Hyaline Cast, Urine Auto RFX 0 /LPF 0-1 [facility] ([facility]) ID Date Data Source [id number] 10/02/2020 11:15:00 AM EST [facility] ([facility]) Name Value Range Interpretation Code Description Data Deepika rce(s) Supporting Document(s) Influenza A Amplification Laboratory test result [facility] ([facility]) Negative results do not preclude influen za or RSV virus infection and should not be used as the sole basis for treatment or other patient management decisions. Influenza B Amplification Laboratory test result [facility] ([facility]) Negative results do not preclude influen za or RSV virus infection and should not be used as the sole basis for treatment or other patient management decisions. RSV Amplification Laboratory test result [facility] ([facility]) Negative results do not preclude influen za or RSV virus infection and should not be used as the sole basis for treatment or other patient management decisions. Laboratory test finding (navigational concept) Laboratory test result [facility] ([facility]) A false negative result may [...] pathogens. DISCLAIMER: Testing was performed using the [employer] SARS-CoV-2 test. This test was developed and its performance characteristics determined by [employer]. This test has not been FDA cleared [...] or revoked sooner. ID Date Data Source [id number] 10/02/2020 11:15:00 AM EST [facility] Name Value Range Interpretation Code Description Data Deepika rce(s) Supporting Document(s) SARS coronavirus 2 RNA [Presence] in Res piratory specimen by JOAQUIM with probe detection NEGATIVE [place] This lab was ordered by [facility] a nd reported by [facility]. ID Date Data Source [id number] 10/02/2020 10:31:00 AM EST [facility] ([facility]) Name Value Range Interpretation Code Description Data Deepika rce(s) Supporting Document(s) Laboratory test finding (navigational concept) 119 mg/dL 70-105 [facility] ([facility]) Laboratory test finding (navigational concept) 31.0 % 38.0-51.0 [facility] ([facility]) Laboratory test finding (navigational concept) 136 meq/L 136-145 [facility] ([facility]) Laboratory test finding (navigational concept) 4.3 meq/L 3.5-5.1 [facility] ([facility]) Laboratory test finding (navigational concept) 4.7 mg/dL 4.5-5.3 [facility] ([facility]) Laboratory test finding (navigational concept) 103 meq/L 98-109 [facility] ([facility]) Laboratory test finding (navigational concept) 32 mg/dL 8-26 [facility] ([facility]) Laboratory test finding (navigational concept) 27.0 MM/L 23.0-27.0 [facility] ([facility]) Laboratory test finding (navigational concept) 2.6 mg/dL 0.6-1.3 [facility] ([facility]) ID Date Data Source [id number] 10/02/2020 10:26:00 AM EST [facility] ([facility]) Name Value Range Interpretation Code Description Data Deepika rce(s) Supporting Document(s) C reactive protein [Mass/volume] in Serum or Plasma by High sensitivity method 34.60 mg/dL 0.00-0.30 [facility] Natriuretic peptide.B prohormone N-Terminal [Mass/volu me] in Serum or Plasma 1788 pg/mL [facility] ID Date Data Source [id number] 10/02/2020 10:26:00 AM EST [facility] Name Value Range Interpretation Code Description Data Deepika rce(s) Supporting Document(s) CPK Creatine Phosphokinase 1108 U/L 39-308 [facility] MB/CK Relative Index 0.26 [facility] <content>DIAGNOSIS CRITERIA</content>
<content>MMB ng/ml Relative Index (RI)</content>
<content>NON-AMI < or = 5 N/A</content>
<content>PHELPS ZONE > 5 < or = 4</content>
<content>AMI > 5 > 4</content>
<content></content> CK-MB Value Mass 2.9 ng/mL [facility] ([facility]) Troponin I 0.03 ng/mL [facility] <content>Troponin I Reference Interval f or Siemens [place] LOCI:</content>
<content></content>
<content>99th Percentile= 0.00-0.045 ng/ml</content>
<content></content>
<content>Risk Stratification:</content>
<content><= 0.10 ng/ml Decreased Risk for Adverse Clinical</content>
<content>Events.</content>
<content>0.10-1.50 ng/ml Increased Risk for Adverse Clinical</content>
<content>Events. Evaluation of additional</content>
<content>criterion and/or repeat testing in 2-6</content>
<content>hours is suggested to rule out myocardial</content>
<content>damage.</content>
<content>>= 1.50 ng/ml Indicative of Myocardial Injury.</content>
<content></content> ID Date Data Source [id number] 10/02/2020 10:26:00 AM EST [facility] ([facility]) Name Value Range Interpretation Code Description Data Deepika rce(s) Supporting Document(s) Erythrocyte sedimentation rate by Westergren method 96 mm/hr 0-20 [facility] ([facility]) ID Date Data Source [id number] 10/02/2020 10:26:00 AM EST [facility] ([facility]) Name Value Range Interpretation Code Description Data Deepika rce(s) Supporting Document(s) White Blood Count 10.1 10 4.0-10.0 [facility] ([facility]) Hemoglobin 10.5 g/dL 13.5-17.5 [facility] Red Blood Count 3.27 10 4.30-6.10 [facility] ([facility]) Mean Corpuscular Volume 100.0 fl 80.0-96.0 [facility]) Mean Corpuscular Hemoglobin 32.1 pg 27.0-33.0 [facility] ([facility]) Hematocrit 32.7 % 42.0-52.0 [facility] Red Cell Distribution Width 13.0 % 11.5-14.5 [facility] ([facility]) Mean Corpuscular HGB Conc 32.1 g/dL 32.0-36.5 [facility] ([facility]) Neutrophils % 84.5 % 36.0-66.0 [facility] ([facility]) Lymph % 6.3 % 24.0-44.0 [facility]) Platelet Count, Automated 129 10 150-450 [facility] ([facility]) Pickett % 8.3 % 2.0-8.0 [facility] Eos % 0.0 % 0.0-3.0 [facility]) Immature Granulocyte % 0.7 % 0-3.0 [facility] ([facility]) Baso % 0.2 % 0.0-1.0 [facility]) Nucleated Red Blood Cell % 0.0 % 0-0 [facility] ([facility]) Neutrophils # 8.6 10 1.5-8.5 [facility] ([facility]) Lymph # 0.6 10 1.5-5.0 [facility] Pickett # 0.8 10 0.0-0.8 [facility] Eos # 0.0 10 0.0-0.5 [facility] Baso # 0.0 10 0.0-0.2 [facility] ID Date Data Source [id number] 10/02/2020 10:26:00 AM EST [facility] ([facility]) Name Value Range Interpretation Code Description Data Deepika rce(s) Supporting Document(s) Lactate [Mass/volume] in Serum or Plasma 1.2 mmol/L 0.4-2.0 [facility] ([facility]) Y/N query for Sepsis Lactate Rule: Y ID Date Data Source [id number] 08/19/2020 08:47:00 AM EST [facility] ([facility]) Name Value Range Interpretation Code Description Data Deepika rce(s) Supporting Document(s) Ferritin [Mass/volume] in Serum or Plasma 76 ng/mL 26-388 [facility] ([facility]) ID Date Data Source [id number] 08/19/2020 08:47:00 AM EST [facility] ([facility]) Name Value Range Interpretation Code Description Data Deepika rce(s) Supporting Document(s) Iron (Fe) 118 ug/dL 65-175 [facility] Total Iron Binding Capacity 274 ug/dL 250-450 [facility] ([facility]) Percent Saturation 43.1 % 19.7-50.0 [facility] ([facility]) ID Date Data Source [id number] 08/19/2020 08:47:00 AM EST [facility] ([facility]) Name Value Range Interpretation Code Description Data Deepika rce(s) Supporting Document(s) Glucose [Mass/volume] in Serum or Plasma 93 mg/dL 74-99 [facility] ([facility]) 100-125 mg/dL PRE-DIABETES/FASTING >126 mg/dL DIABETES/FASTING Creatinine 1.8 mg/dL 0.6-1.3 [facility] ([facility]) Urea nitrogen [Mass/volume] in Serum or Plasma 20 mg/dL 7-18 [facility] ([facility]) Sodium [Moles/volume] in Serum or Plasma 139 meq/L 136-145 [facility] ([facility]) Potassium [Moles/volume] in Serum or Plasma 4.3 meq/L 3.5-5.1 [facility] ([facility]) Chloride [Moles/volume] in Serum or Plasma 102 meq/L 98-107 [facility] ([facility]) Calcium [Mass/volume] in Serum or Plasma 9.1 mg/dL 8.5-10.1 [facility] ([facility]) Carbon dioxide, total [Moles/volume] in Serum or Plasma 30 meq/L 21 -32 [facility] ([facility]) Glomerular filtration rate/1.73 sq M pre dicted among non-blacks [Volume Rate/Area] in Serum or Plasma by Creatinine-based formula (MDRD) 37 mL/min [facility] ([facility]) Glomerular filtration rate/1.73 sq M pre dicted among blacks [Volume Rate/Area] in Serum or Plasma by Creatinine-based formula (MDRD) 45 mL/min [facility] ([facility]) <content>CHRONIC KIDNEY DISEASE STAGING PER NKF</content>
<content></content>
<content>STAGE I & II GFR >= 60 NORMAL TO MILDLY DECREASED</content>
<content>STAGE III GFR 30-59 MODERATELY DECREASED</content>
<content>STAGE IV GFR 15-29 SEVERELY DECREASED</content>
<content>STAGE V GFR <15 VERY LITTLE GFR LEFT</content>
<content>ESRD GFR <15 ON CLOTH PIECER</content>
<content></content> ID Date Data Source [id number] 03/26/2020 10:09:38 AM EDT [facility] XR KNEE 4 OR MORE VIEWS [id number] RESUL TInterpreted by:Hubert Mac MDBILATERAL KNEESCLINICAL STATEMENT: [...] rce(s) Supporting Document(s) ID Date Data Source [id number] 03/25/2020 02:20:00 PM EDT [facility] Name Value Range Interpretation Code Description Data Deepika rce(s) Supporting Document(s) Glucose [Mass/volume] in Serum or Plasma 158 mg/dL 74-99 [facility] ([facility]) 100-125 mg/dL PRE-DIABETES/FASTING >126 mg/dL DIABETES/FASTING Urea nitrogen [Mass/volume] in Serum or Plasma 31 mg/dL 7-18 [facility] ([facility]) NOTE: bun and creat verified Sodium [Moles/volume] in Serum or Plasma 143 meq/L 136-145 [facility] ([facility]) Creatinine 1.8 mg/dL 0.6-1.3 [facility] Potassium [Moles/volume] in Serum or Plasma 3.8 meq/L 3.5-5.1 [facility] ([facility]) Chloride [Moles/volume] in Serum or Plasma 105 meq/L 98-107 [facility] ([facility]) Carbon dioxide, total [Moles/volume] in Serum or Plasma 29 meq/L 21 -32 [facility] ([facility]) Calcium [Mass/volume] in Serum or Plasma 8.9 mg/dL 8.5-10.1 [facility] ([facility]) Glomerular filtration rate/1.73 sq M pre dicted among non-blacks [Volume Rate/Area] in Serum or Plasma by Creatinine-based formula (MDRD) 37 mL/min [facility] ([facility]) Glomerular filtration rate/1.73 sq M pre dicted among blacks [Volume Rate/Area] in Serum or Plasma by Creatinine-based formula (MDRD) 45 mL/min [facility] ([facility]) <content>CHRONIC KIDNEY DISEASE STAGING PER NKF</content>
<content></content>
<content>STAGE I & II GFR >= 60 NORMAL TO MILDLY DECREASED</content>
<content>STAGE III GFR 30-59 MODERATELY DECREASED</content>
<content>STAGE IV GFR 15-29 SEVERELY DECREASED</content>
<content>STAGE V GFR <15 VERY LITTLE GFR LEFT</content>
<content>ESRD GFR <15 ON CLOTH PIECER</content>
<content></content> ID Date Data Source [id number] 03/25/2020 11:57:41 AM EDT [facility] Name Value Range Interpretation Code Description Data Deepika rce(s) Supporting Document(s) Progress Note [facility] [id number] [facility] [file] [id number] ID Date Data Source [id number] 03/12/2020 02:51:00 PM EDT [facility] ([facility]) Name Value Range Interpretation Code Description Data Deepika rce(s) Supporting Document(s) Cobalamin (Vitamin B12) [Mass/volume] in Serum or Plasma 809 pg/mL 2 47-911 [facility] ([facility]) VITAMIN B12 NORMAL RANGE NORMAL 247 - 911 PG/ML INDETERMINATE 211 - 246 PG/ML DEFICIENT LESS THAN 211 PG/ML Ferritin [Mass/volume] in Serum or Plasma 78 ng/mL 26-388 [facility] ([facility]) ID Date Data Source [id number] 03/12/2020 02:51:00 PM EDT [facility] ([facility]) Name Value Range Interpretation Code Description Data Deepika rce(s) Supporting Document(s) Iron (Fe) 59 ug/dL 65-175 [facility] Percent Saturation 20.6 % 19.7-50.0 [facility] ([facility]) Total Iron Binding Capacity 286 ug/dL 250-450 [facility] ([facility]) ID Date Data Source [id number] 03/12/2020 02:51:00 PM EDT [facility] ([facility]) Name Value Range Interpretation Code Description Data Deepika rce(s) Supporting Document(s) Cholesterol [Mass/volume] in Serum or Plasma 151 mg/dL 131-200 [facility] ([facility]) Triglyceride [Mass/volume] in Serum or Plasma 202 mg/dL 30-150 [facility] ([facility]) Cholesterol in LDL [Mass/volume] in Serum or Plasma by calcu lation 68 CALC 50-159 [facility] ([facility]) Cholesterol in HDL [Mass/volume] in Serum or Plasma 43 mg/dL 35-60 [facility] ([facility]) ID Date Data Source [id number] 03/12/2020 02:51:00 PM EDT [facility] ([facility]) Name Value Range Interpretation Code Description Data Deepika rce(s) Supporting Document(s) Urea nitrogen [Mass/volume] in Serum or Plasma 41 mg/dL 7-18 [facility] ([facility]) Glucose [Mass/volume] in Serum or Plasma 140 mg/dL 74-99 [facility] ([facility]) 100-125 mg/dL PRE-DIABETES/FASTING >126 mg/dL DIABETES/FASTING Sodium [Moles/volume] in Serum or Plasma 144 meq/L 136-145 [facility] ([facility]) Creatinine 2.2 mg/dL 0.6-1.3 [facility] ([facility]) Potassium [Moles/volume] in Serum or Plasma 3.6 meq/L 3.5-5.1 [facility] ([facility]) Chloride [Moles/volume] in Serum or Plasma 105 meq/L 98-107 [facility] ([facility]) Carbon dioxide, total [Moles/volume] in Serum or Plasma 33 meq/L 21 -32 [facility] ([facility]) Total Bilirubin 0.3 mg/dL 0.2-1.0 [facility] ([facility]) Alkaline phosphatase isoenzyme [Units/volume] in Serum or Pl asma 75 mg/dL 46-116 [facility] ([facility]) Calcium [Mass/volume] in Serum or Plasma 9.3 mg/dL 8.5-10.1 [facility] ([facility]) Aspartate aminotransferase [Enzymatic activity/volume] in Serum or Plasma 20 U/L 15-37 [facility] ([facility] ) Albumin [Mass/volume] in Serum or Plasma 3.9 g/dL 3.4-5.0 [facility] ([facility]) Alanine aminotransferase [Enzymatic activity/volume] in Seru m or Plasma 26 U/L 12-78 [facility] ([facility]) Proteinase 3 Ab [Units/volume] in Serum 8.1 g/dL 6.4-8.2 [facility] ([facility]) A/G Ratio 0.93 CALC 1.00-1.90 [facility]) Glomerular filtration rate/1.73 sq M pre dicted among non-blacks [Volume Rate/Area] in Serum or Plasma by Creatinine-based formula (MDRD) 29 mL/min [facility] ([facility]) Glomerular filtration rate/1.73 sq M pre dicted among blacks [Volume Rate/Area] in Serum or Plasma by Creatinine-based formula (MDRD) 36 mL/min [facility] ([facility]) <content>CHRONIC KIDNEY DISEASE STAGING PER NKF</content>
<content></content>
<content>STAGE I & II GFR >= 60 NORMAL TO MILDLY DECREASED</content>
<content>STAGE III GFR 30-59 MODERATELY DECREASED</content>
<content>STAGE IV GFR 15-29 SEVERELY DECREASED</content>
<content>STAGE V GFR <15 VERY LITTLE GFR LEFT</content>
<content>ESRD GFR <15 ON CLOTH PIECER</content>
<content></content> ID Date Data Source [id number] 03/12/2020 02:51:00 PM EDT [facility] ([facility]) Name Value Range Interpretation Code Description Data Deepika rce(s) Supporting Document(s) Leukocytes [#/volume] in Blood by Automated count 7.0 x10*3/UL 4.1-10 .9 [facility] ([facility]) Hemoglobin [Mass/volume] in Blood 11.1 g/dL 12.0-18.0 [facility] ([facility]) NOTE: RESULT VERIFIED. Erythrocytes [#/volume] in Blood by Automated count 3.42 x10*6/UL 4.2 0-6.30 [facility] Hematocrit [Volume Fraction] of Blood by Automated count 31.6 % 3 7.0-51.0 [facility] ([facility]) MCV 92.2 fL 80.0-97.0 [facility]) Erythrocyte distribution width [Ratio] by Automated count 12.3 % 11.6-13.7 [facility] ([facility]) MCHC 35.2 g/dL 31.0-38.0 [facility] ([facility]) MCH 32.4 pg 26.0-32.0 [facility]) MPV 8.9 FL 7.8-11.0 [facility]) Platelets [#/volume] in Blood by Automated count 205 x10*3/UL 140-440 [facility] ([facility]) Lymph % 19.7 % 10.0-58.5 [facility] Mid % 6.4 % 1.7-9.3 [facility] Neut % 73.9 % 37.0-92.0 [facility]) Lymph # 1.3 x10*3/UL 0.6-4.1 [facility] ([facility]) Mid # 0.6 x10*3/UL 0.1-0.6 [facility] ([facility]) Neut # 5.1 x10*3/UL 2.0-7.8 [facility] ([facility]) ID Date Data Source [id number] 03/12/2020 02:51:00 PM EDT [facility] ([facility]) Name Value Range Interpretation Code Description Data Deepika rce(s) Supporting Document(s) Cobalamin (Vitamin B12) [Mass/volume] in Serum or Plasma Lab oratory test result [facility] ([facility]) Ferritin [Mass/volume] in Serum or Plasma Laboratory test result [facility] ([facility]) Procedure Social History Code Duration Value Status Description Data Source(s ) Smoking 04/29/2021 12:00:00 AM EDT Never Smoker completed Never S moker eCW1 ([facility]) Smoking 04/21/2021 12:00:00 AM EDT Never Smoker completed Never S moker eCW1 ([facility]) Smoking 04/01/2021 12:00:00 AM EDT Never Smoker completed Never S moker eCW1 ([facility]) Alcohol intake 03/27/2021 12:00:00 AM EDT Ex-drinker (finding) comp leted Ex- drinker (finding) [facility] Smoking 02/17/2021 12:00:00 AM EDT Never Smoker completed Never S moker eCW1 ([facility]) Smoking 02/17/2021 12:00:00 AM EDT Never Smoker completed Never S moker eCW1 ([facility]) Smoking 02/17/2021 12:00:00 AM EDT Never Smoker completed Never S moker eCW1 ([facility]) Smoking 01/28/2021 12:00:00 AM EDT Never Smoker completed Never S moker eCW1 ([facility]) Smoking 01/28/2021 12:00:00 AM EDT Never Smoker completed Never S moker eCW1 ([facility]) Smoking 01/28/2021 12:00:00 AM EDT Never Smoker completed Never S moker eCW1 ([facility]) Smoking 01/16/2021 12:00:00 AM EDT Never Smoker completed Never S moker eCW1 ([facility]) Smoking 12/19/2020 12:00:00 AM EDT Never Smoker completed Never S moker eCW1 ([facility]) Smoking 12/19/2020 12:00:00 AM EDT Never Smoker completed Never S moker eCW1 ([facility]) Smoking 12/19/2020 12:00:00 AM EDT Never Smoker completed Never S moker eCW1 ([facility]) Smoking 11/26/2020 12:00:00 AM EDT Never Smoker completed Never S moker eCW1 ([facility]) Smoking 11/26/2020 12:00:00 AM EDT Never Smoker completed Never S moker eCW1 ([facility]) Smoking 11/26/2020 12:00:00 AM EDT Never Smoker completed Never S moker eCW1 ([facility]) Smoking 11/26/2020 12:00:00 AM EDT Never Smoker completed Never S moker eCW1 ([facility]) Smoking 11/26/2020 12:00:00 AM EDT Never Smoker completed Never S moker eCW1 ([facility]) Smoking 11/26/2020 12:00:00 AM EDT Never Smoker completed Never S moker eCW1 ([facility]) Tobacco use and exposure 11/06/2020 12:00:00 AM EDT Never used co mpleted Never used [facility] Smoking 11/06/2020 12:00:00 AM EDT Former smoker completed Former smoker [facility] Alcohol intake 11/06/2020 12:00:00 AM EDT Not Currently completed [facility] Smoking 11/06/2020 12:00:00 AM EDT Former smoker completed Former smoker [facility] Smoking 11/04/2020 12:00:00 AM EDT Never Smoker completed Never S moker eCW1 ([facility]) Smoking 11/04/2020 12:00:00 AM EDT Never Smoker completed Never S moker eCW1 ([facility]) Smoking 10/21/2020 12:00:00 AM EDT Never Smoker completed Never S moker eCW1 ([facility]) Smoking 10/21/2020 12:00:00 AM EDT Never Smoker completed Never S moker eCW1 ([facility]) Alcohol intake 03/25/2020 12:00:00 AM EDT Current non-d keesha of alcohol (finding) completed Current non-drinker of alcohol (finding) [facility] Tobacco use and exposure 03/25/2020 12:00:00 AM EDT Never used co mpleted Never used [facility] Cigarettes smoked current (pack per day) - Reported 03/25/20 20 12:00:00 AM EDT UNK completed [facility] Smoking 03/25/2020 12:00:00 AM EDT Former smoker completed Former smoker [facility] Vital Signs ID Date Data Source UNK Name Value Range Interpretation Code Description Data Source(s) Body temperature 97.2 [degF] 97.2 [degF] [facility] ([facility], ) Body temperature 97.5 [degF] 97.5 [degF] [facility] ([facility], ) Body mass index (BMI) [Ratio] 24.2 kg/m2 24.2 k g/m2 [facility] ([facility]) Body height 64 [in_i] 64 [in_i] [facility] ([facility]) 5'4" Systolic blood pressure 150 mm[Hg] 150 mm[Hg] M [facility] ([facility]) Diastolic blood pressure 72 mm[Hg] 72 mm[Hg] [facility] ([facility]) Heart rate 70 /min 70 /min [facility] ([facility]) Body weight 141.00 [lb_av] 141.00 [lb_av] [facility] ([facility]) Oxygen saturation in Arterial blood by Pulse oximetry 94 % 94 % [facility] ([facility]) Body weight 142 [lb_av] 142 [lb_av] eCW1 (Pending sale to [facility]) Body weight 64.41 kg 64.41 kg eCW1 ([facility]) Body height 63 [in_i] 63 [in_i] eCW1 ([facility]) Body mass index (BMI) [Ratio] 25.15 kg/m2 25.15 kg/m2 eCW1 ([facility]) Heart rate 64 /min 64 /min eCW1 ([facility]) Respiratory rate 16 /min 16 /min eCW1 ([facility]) Body temperature 98 [degF] 98 [degF] eCW1 ([facility]) Body temperature 97.3 [degF] 97.3 [degF] [facility] ([facility], ) [place] body weight 130 [lb_av] 130 [lb_av] [facility] ([facility], ) Body height 64 [in_i] 64 [in_i] [facility] ([facility], ) 5'4" Systolic blood pressure 134 mm[Hg] 134 mm[Hg] [facility] Diastolic blood pressure 62 mm[Hg] 62 mm[Hg] [facility] ([facility], ) Oxygen saturation in Arterial blood by Pulse oximetry 99 % 99 % [facility] ([facility], ) Respiratory rate 17 /min 17 /min [facility] ( [facility], ) Body temperature 97.6 [degF] 97.6 [degF] [facility] ([facility], ) Systolic blood pressure 130 mm[Hg] 130 mm[Hg] [facility] Diastolic blood pressure 60 mm[Hg] 60 mm[Hg] [facility] Heart rate 65 /min 65 /min [facility] Respiratory rate 18 /min 18 /min [facility] Body height 160 cm 160 cm [facility] Body weight 62.596 kg 62.596 kg [facility] Body mass index (BMI) [Ratio] 24.45 kg/m2 24.45 kg/m2 [facility] Oxygen saturation in Arterial blood by Pulse oximetry 98 % 98 % [facility] Diastolic blood pressure 74 mm[Hg] 74 mm[Hg] [facility] ([facility]) Heart rate 65 /min 65 /min [facility] ([facility]) Body height 64 [in_i] 64 [in_i] [facility] ([facility]) 5'4" Body weight 137.00 [lb_av] 137.00 [lb_av] [facility] T ([facility]) Oxygen saturation in Arterial blood by Pulse oximetry 95 % 95 % [facility] ([facility]) Body mass index (BMI) [Ratio] 23.5 kg/m2 23.5 k g/m2 [facility] ([facility]) Systolic blood pressure 126 mm[Hg] 126 mm[facility]Hg] [facility] Body temperature 97.4 [degF] 97.4 [degF] [facility] ([facility]) Body height 64 [in_i] 64 [in_i] [facility] ([facility]) 5'4" Body weight 140.00 [lb_av] 140.00 [lb_av] [facility] T ([facility]) Body mass index (BMI) [Ratio] 24.0 kg/m2 24.0 k g/m2 [facility] ([facility]) [place] body weight 130 [lb_av] 130 [lb_av] [facility] ([facility]) Body weight 63.504 kg 63.504 kg [facility] ([facility]) Body surface area Derived from formula 1.68 m2 1.68 m2 [facility] ([facility]) Systolic blood pressure 124 mm[Hg] 124 mm[Hg] M [facility] ([facility]) Diastolic blood pressure 70 mm[Hg] 70 mm[Hg] [facility] ([facility]) Heart rate 72 /min 72 /min [facility] ([facility]) Body height 64 [in_i] 64 [in_i] [facility] ([facility]) 5'4" Body weight 138.00 [lb_av] 138.00 [lb_av] [facility] T ([facility]) Body mass index (BMI) [Ratio] 23.7 kg/m2 23.7 k g/m2 [facility] ([facility]) Body temperature 97.9 [degF] 97.9 [degF] [facility] ([facility], ) Body weight 141 [lb_av] 141 [lb_av] eCW1 (Pending sale to [facility]) Body height 63 [in_i] 63 [in_i] eCW1 ([facility]) Body mass index (BMI) [Ratio] 24.97 kg/m2 24.97 kg/m2 eCW1 ([facility]) Heart rate 68 /min 68 /min eCW1 ([facility]) Respiratory rate 18 /min 18 /min eCW1 ([facility]) Body temperature 97.9 [degF] 97.9 [degF] eCW1 ( [facility]) Systolic blood pressure 134 mm[Hg] 134 mm[Hg] e CW1 ([facility]) Diastolic blood pressure 76 mm[Hg] 76 mm[Hg] eCW1 ([facility]) Body weight 139 [lb_av] 139 [lb_av] eCW1 (Pending sale to [facility]) Heart rate 59 /min 59 /min eCW1 ([facility]) Respiratory rate 18 /min 18 /min eCW1 ([facility]) Body temperature 98.1 [degF] 98.1 [degF] eCW1 ( [facility]) Body mass index (BMI) [Ratio] 24.62 kg/m2 24.62 kg/m2 eCW1 ([facility]) Systolic blood pressure 132 mm[Hg] 132 mm[Hg] e CW1 ([facility]) Diastolic blood pressure 72 mm[Hg] 72 mm[Hg] eCW1 ([facility]) Body height 63 [in_i] 63 [in_i] eCW1 ([facility]) Body temperature 98.0 [degF] 98.0 [degF] [facility] ([facility], ) Body temperature 98.0 [degF] 98.0 [degF] [facility] ([facility], ) Body temperature 98.8 [degF] 98.8 [degF] [facility] ([facility], ) Body weight 140 [lb_av] 140 [lb_av] eCW1 (Pending sale to [facility]) Body height 63 [in_i] 63 [in_i] eCW1 ([facility]) Body mass index (BMI) [Ratio] 24.80 kg/m2 24.80 kg/m2 eCW1 ([facility]) Heart rate 82 /min 82 /min eCW1 ([facility]) Respiratory rate 18 /min 18 /min eCW1 ([facility]) Body temperature 98.6 [degF] 98.6 [degF] eCW1 ( [facility]) Systolic blood pressure 144 mm[Hg] 144 mm[Hg] e CW1 ([facility]) Diastolic blood pressure 62 mm[Hg] 62 mm[Hg] eCW1 ([facility]) Body temperature 96.3 [degF] 96.3 [degF] [facility] ([facility], ) Body temperature 98.2 [degF] 98.2 [degF] [facility] ([facility], ) Body weight 147 [lb_av] 147 [lb_av] eCW1 (Pending sale to [facility]) Body height 63 [in_i] 63 [in_i] eCW1 ([facility]) Body mass index (BMI) [Ratio] 26.04 kg/m2 26.04 kg/m2 eCW1 ([facility]) Heart rate 78 /min 78 /min eCW1 ([facility]) Respiratory rate 18 /min 18 /min eCW1 ([facility]) Body temperature 98.7 [degF] 98.7 [degF] eCW1 ( [facility]) Systolic blood pressure 134 mm[Hg] 134 mm[Hg] e CW1 ([facility]) Diastolic blood pressure 72 mm[Hg] 72 mm[Hg] eCW1 ([facility]) Systolic blood pressure 154 mm[Hg] 154 mm[Hg] [facility] lt arm Diastolic blood pressure 78 mm[Hg] 78 mm[Hg] [facility] ([facility]) lt arm Heart rate 76 /min 76 /min [facility] ([facility]) Body height 64 [in_i] 64 [in_i] [facility] ([facility]) 5'4" Body weight 146.12 [lb_av] 146.12 [lb_av] [facility] T ([facility]) Diastolic blood pressure 82 mm[Hg] 82 mm[Hg] [facility] ([facility]) lt arm Systolic blood pressure 140 mm[Hg] 140 mm[Hg] [facility]) lt arm Oxygen saturation in Arterial blood by Pulse oximetry --post exerci se 93 % 93 % [facility] ([facility]) RM Air Body mass index (BMI) [Ratio] 25.1 kg/m2 25.1 k g/m2 [facility] ([facility]) Body temperature 97.8 [degF] 97.8 [degF] [facility] ([facility], ) Respiratory rate 17 /min 17 /min [facility] ( [facility], ) [place] body weight 130 [lb_av] 130 [lb_av] [facility] T ([facility], ) Systolic blood pressure 191 mm[Hg] 191 mm[Hg] [facility] ) Body height 64 [in_i] 64 [in_i] [facility] ([facility], ) 5'4" Diastolic blood pressure 83 mm[Hg] 83 mm[Hg] [facility] ([facility], ) Heart rate 74 /min 74 /min [facility] ([facility], ) Oxygen saturation in Arterial blood by Pulse oximetry 97 % 97 % [facility] ([facility], ) Body weight 147 [lb_av] 147 [lb_av] eCW1 (Pending sale to [facility]) Body height 63 [in_i] 63 [in_i] W1 ([facility]) Body mass index (BMI) [Ratio] 26.04 kg/m2 26.04 kg/m2 eCW1 ([facility]) Heart rate 85 /min 85 /min eCW1 ([facility]) Respiratory rate 18 /min 18 /min eCW1 ([facility]) Body temperature 98.6 [degF] 98.6 [degF] eCW1 ( [facility]) Systolic blood pressure 128 mm[Hg] 128 mm[Hg] e CW1 ([facility]) Diastolic blood pressure 78 mm[Hg] 78 mm[Hg] eCW1 ([facility]) Systolic blood pressure 118 mm[Hg] 118 mm[Hg] [facility] Diastolic blood pressure 74 mm[Hg] 74 mm[Hg] [facility] Heart rate 65 /min 65 /min [facility] Body height 160 cm 160 cm [facility] Body weight 66.679 kg 66.679 kg [facility] Body mass index (BMI) [Ratio] 26.04 kg/m2 26.04 kg/m2 [facility] Oxygen saturation in Arterial blood by Pulse oximetry 98 % 98 % [facility] Body height 64 [in_i] 64 [in_i] [facility] ([facility]) 5'4" Body mass index (BMI) [Ratio] 25.2 kg/m2 25.2 k g/m2 [facility] ([facility]) Systolic blood pressure 122 mm[Hg] 122 mm[Hg] [facility] ([facility]) Diastolic blood pressure 70 mm[Hg] 70 mm[Hg] [facility] ([facility]) Heart rate 73 /min 73 /min [facility] ([facility]) Body weight 147.00 [lb_av] 147.00 [lb_av] [facility] T ([facility]) Oxygen saturation in Arterial blood by Pulse oximetry 96 % 96 % [facility] ([facility]) Air Body weight 146 [lb_av] 146 [lb_av] eCW1 (Pending sale to [facility]) Body height 63 [in_i] 63 [in_i] eCW1 ([facility]) Body mass index (BMI) [Ratio] 25.86 kg/m2 25.86 kg/m2 eCW1 ([facility]) Heart rate 78 /min 78 /min eCW1 ([facility]) Respiratory rate 18 /min 18 /min eCW1 ([facility]) Body temperature 98.6 [degF] 98.6 [degF] eCW1 ( [facility]) Systolic blood pressure 118 mm[Hg] 118 mm[Hg] e CW1 ([facility]) Diastolic blood pressure 76 mm[Hg] 76 mm[Hg] eCW1 ([facility]) Body weight 165 [lb_av] 165 [lb_av] eCW1 (Pending sale to [facility]) Body height 63 [in_i] 63 [in_i] eCW1 ([facility]) Body mass index (BMI) [Ratio] 29.23 kg/m2 29.23 kg/m2 eCW1 ([facility]) Heart rate 88 /min 88 /min eCW1 ([facility]) Respiratory rate 18 /min 18 /min eCW1 ([facility]) Body temperature 97.7 [degF] 97.7 [degF] eCW1 ( [facility]) Systolic blood pressure 158 mm[Hg] 158 mm[Hg] e CW1 ([facility]) Diastolic blood pressure 84 mm[Hg] 84 mm[Hg] eCW1 ([facility]) Oxygen saturation in Arterial blood by Pulse oximetry 97 % 97 % [facility] ([facility], ) Room Air Body temperature 97.6 [degF] 97.6 [degF] [facility] ([facility], ) Body height 64 [in_i] 64 [in_i] [facility] 5'4" Body weight 140.25 [lb_av] 140.25 [lb_av] [facility] T ([facility], ) Body mass index (BMI) [Ratio] 24.1 kg/m2 24.1 k g/m2 [facility] ([facility]) [place] body weight 130 [lb_av] 130 [lb_av] [facility] T ([facility]) Body weight 63.617 kg 63.617 kg [facility] ([facility]) Body surface area Derived from formula 1.68 m2 1.68 m2 [facility] ([facility]) Systolic blood pressure 146 mm[Hg] 146 mm[Hg] M [facility] ([facility]) Diastolic blood pressure 67 mm[Hg] 67 mm[Hg] [facility] ([facility]) Heart rate 77 /min 77 /min [facility] ([facility]) Systolic blood pressure 120 mm[Hg] 120 mm[Hg] M [facility] ([facility]) Diastolic blood pressure 70 mm[Hg] 70 mm[Hg] [facility] ([facility]) Body weight 152.00 [lb_av] 152.00 [lb_av] [facility] T ([facility]) Oxygen saturation in Arterial blood by Pulse oximetry 97 % 97 % [facility] ([facility]) [facility] Body mass index (BMI) [Ratio] 26.1 kg/m2 26.1 k g/m2 [facility] ([facility]) Heart rate 62 /min 62 /min [facility] ([facility]) Body height 64 [in_i] 64 [in_i] [facility] ([facility]) 5'4" Systolic blood pressure 124 mm[Hg] 124 mm[Hg] M [facility] ([facility]) Diastolic blood pressure 78 mm[Hg] 78 mm[Hg] [facility] ([facility]) Heart rate 66 /min 66 /min [facility] ([facility]) Body height 64 [in_i] 64 [in_i] [facility] ([facility]) 5'4" Body weight 152.00 [lb_av] 152.00 [lb_av] [facility] T ([facility]) Oxygen saturation in Arterial blood by Pulse oximetry 94 % 94 % [facility] ([facility]) Body mass index (BMI) [Ratio] 26.1 kg/m2 26.1 k g/m2 [facility] ([facility]) ID Date Data Source [id number] 03/25/2020 11:31:20 AM EDT [facility] Name Value Range Interpretation Code Description Data Source(s) WEIGHT RECORDED 150 lb 150 lb [facility] Body height Measured 63 in 63 in [facility] Patient Treatment Plan of Care Planned Activity Planned Date Details Description Data Source (s) Cefazolin Sodium 2 GM/20ML 12/24/2020 12:00:00 AM EDT eCW1 ([facility]) ceFAZolin Sodium 2 GM/20ML 12/24/2020 12:00:00 AM EDT eCW1 ([facility]) Cefazolin Sodium 2 GM/20ML 12/24/2020 12:00:00 AM EDT eCW1 ([facility]) ceFAZolin Sodium 2 GM/20ML 12/24/2020 12:00:00 AM EDT eCW1 ([facility]) Hydralazine Hydrochloride 25 MG Oral Tablet 11/05/2020 12:00:00 AM EDT [facility] atorvastatin 40 MG Oral Tablet 11/01/2020 12:00:00 AM EDT [facility] Nafcillin 100 MG/ML Injectable Solution 10/28/2020 12:00:00 AM EDT [facility] Calcitriol 0.22935 MG Oral Capsule 10/25/2020 12:00:00 AM EDT [facility] Rifampin 150 MG Oral Capsule 10/10/2020 12:00:00 AM EDT [facility] Probiotic Product (TERESA-BID PROBIOTIC) TABS 10/10/2020 12:00:00 AM EDT [facility] gabapentin 800 MG Oral Tablet 09/16/2020 12:00:00 AM EST [facility] torsemide 10 MG Oral Tablet [facility]
[2021-05-09] MEDS ORDERED: ATOR40TA75 PO (11:29)
[2021-05-09] MEDS ORDERED: ECOT81TA5 PO (11:29)
[2021-05-09] MEDS ORDERED: MULT-90 PO (11:29)
[2021-05-09] MEDS ORDERED: C 50TAB PO (11:29)
[2021-05-09] MEDS ORDERED: HOME MED LIST COMPLETE! XX SCH (11:30)
[2021-05-09] MEDS ORDERED: FURO20TA2 PO (11:30)
--- NOTE | 2021-05-09 11:49 | REP ---
INDICATION: preop COMPARISON: 10/30/2020 TECHNIQUE: Portable AP view of the chest FINDINGS: The mediastinum and cardiac silhouette are stable and within normal limits for portable technique. The lung anderson demonstrate stable chronic changes without acute consolidation, effusion, or pneumothorax. Skeletal structures are intact. IMPRESSION: No acute cardiopulmonary process appreciated. <Electronically signed by Rob Funes > 05/09/21 [id number]
--- NOTE | 2021-05-09 11:51 | REP ---
INDICATION: knee pain 1 mos post op rev R TKA, ap, lateral, sunrise COMPARISON: 04/25/2021 TECHNIQUE: AP and lateral right knee FINDINGS: Patient is status post right knee replacement with normal stable appearance and positioning to the orthopedic hardware. 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 There is significant soft tissue swelling and suspected joint effusion. No subcutaneous emphysema. No evidence for acute fracture or dislocation. IMPRESSION: Right knee replacement appears intact and stable. Significant soft tissue swelling and suspected effusion. Chronic stable changes. <Electronically signed by Rob Funes > 05/09/21 1140
[2021-05-09 12:11] LABS: BASO % 0.1 % (0.0-1.0); EOS % 0.2 % (0.0-3.0); HEMATOCRIT 28.9 % (42.0-52.0); HEMOGLOBIN 9.2 g/dl (13.5-17.5); LYMPH # 0.7 10^3/uL (1.5-5.0); LYMPH % 6.4 % (24.0-44.0); MEAN CORPUSCULAR HEMOGLOBIN 31.7 pg (27.0-33.0); MEAN CORPUSCULAR HGB CONC 31.8 g/dl (32.0-36.5); MEAN CORPUSCULAR VOLUME 99.7 fl (80.0-96.0); MONO # 1.2 10^3/uL (0.0-0.8); MONO % 10.5 % (2.0-8.0); NEUTROPHILS # 9.5 10^3/uL (1.5-8.5); NEUTROPHILS % 82.4 % (36.0-66.0); PLATELET COUNT, AUTOMATED 168 10^3/uL (150-450); WHITE BLOOD COUNT 11.5 10^3/uL (4.0-10.0)
[2021-05-09 12:25] LABS: INR 1.17; PROTHROMBIN TIME 15.3 SECONDS (12.7-14.5)
[2021-05-09 12:26] LABS: PARTIAL THROMBOPLASTIN TIME 33.9 SECONDS (25.9-37.0)
[2021-05-09 12:34] LABS: ALT/SGPT 22 U/L (12-78); BILIRUBIN,DIRECT 0.2 MG/DL (0.0-0.2); BILIRUBIN,TOTAL 0.7 MG/DL (0.2-1.0); BLOOD UREA NITROGEN 40 MG/DL (7-18); CALCIUM LEVEL 8.5 MG/DL (8.8-10.2); CARBON DIOXIDE LEVEL 26 MEQ/L (21-32); CHLORIDE LEVEL 109 MEQ/L (98-107); CK-MB VALUE MASS < 1.0 NG/ML (<3.6); CPK CREATINE PHOSPHOKINASE 127 U/L (39-308); CREATININE FOR GFR 2.64 MG/DL (0.70-1.30); GLOMERULAR FILTRATION RATE 25.4 (>42); GLUCOSE, FASTING 102 MG/DL (70-100); LIPASE 132 U/L (73-393); MB/CK RELATIVE INDEX 0.79 (< OR =4); POTASSIUM SERUM 4.2 MEQ/L (3.5-5.1); SODIUM LEVEL 140 MEQ/L (136-145); TOTAL PROTEIN 6.8 GM/DL (6.4-8.2); TROPONIN I < 0.02 NG/ML (< 0.10)
[2021-05-09 12:41] LABS: ERYTHROCYTE SEDIMENTATION RATE 127 mm/hr (0-20)
--- NOTE | 2021-05-09 13:02 | REP ---
INDICATION: swelling/pain COMPARISON: None. TECHNIQUE: Prabhakar scale and color Doppler evaluation using linear high frequency transducer. FINDINGS: Ultrasound examination of the right lower extremity deep venous structures from the common femoral vein through the popliteal vein and limited evaluation of the calf veins demonstrates normal compressibility flow and wave patterns in response to respiration and augmentation. There is no evidence for deep venous thrombosis. Contralateral CFV is patent and normal. IMPRESSION: No evidence for deep venous thrombosis. <Electronically signed by Rob Funes > 05/09/21 [id number]
[2021-05-09] MEDS ORDERED: ACETAMINOPHEN 500 MG TAB PO PRN (13:40)
--- OUTSIDE RECORDS SUMMARY | 2021-05-09 13:53 | CCD ---
Author Author [facility] Organization [facility] Address Unknown Phone Unavailable Care Team Providers Care Decontaminator Name Role Phone Cooper, P Doyle PA Unavailable Unavailable Cooper, P Doyle PA Unavailable Unavailable Cooper, P Doyle PA Unavailable Unavailable Cooper, P Doyle PA Unavailable Unavailable Cooper, P Doyle PA Unavailable Unavailable Cooper, P Doyle PA Unavailable Unavailable Cooper, P Doyle PA Unavailable Unavailable Cooper, P Odyle PA Unavailable Unavailable Cooper, P Doyle PA [...] is protected by Article 27-F of the [facility] Public Health law. If you continue you may have access to information: Regarding HIV / AIDS; Provided by facilities licensed or operated by the [facility] Office of Mental Health; or Provided by the [facility] Office for People With Developmental Disabilities. If such information is present, then the following [facility] mandated warning applies: This information has been [...] law may result in a fine or long-term sentence or both. A general authorization for the release of medical or other information is NOT sufficient authorization for further disc losure. Allergies and Adverse Reactions Type Description Substance Reaction Status Data Source(s ) Sulfasalazine Sulfa Antibiotics Sulfasalazine kidney issues Active eCW1 ([facility]) Propensity to adverse reactions NO KNOWN ALLERGIES NO KNOWN ALLERGIES [facility] Family History Family Member Name Family Member Gender Family Member Status Date o f Status Description Data Source(s) Unknown Male Problem MEDENT ([facility]) Unknown Male Problem MEDENT ([facility]) Encounters Encounter Providers Location Date Indications Data Source(s ) Office Visit Attender: David Mendoza/Cibolo/Eugenio/Rein dl 04/30/2021 01:00:00 PM EDT MEDENT ([facility]) Office Visit Attender: David Mendoza/Cibolo/Eugenio/Rein dl 04/25/2021 09:30:00 AM EDT MED[facility] ([facility]) [place] [address] [facility] [address] 04/22/2021 12:00:00 AM EDT eCW1 ([facility]) [place] [address] [facility] [address] 04/21/2021 12:00:00 AM EDT eCW1 ([facility]) Office Visit Attender: David Mendoza/Wagner/Eugenio/Rein dl 04/14/2021 02:30:00 PM EDT MEDENT ([facility]) Outpatient Attender: David Mendoza/Wagner/Eugenio/Rein dl 04/08/2021 01:00:00 PM EDT MED[facility] ([facility]) [place] [address] [address] 04/01/2021 12:00:00 AM EDT eCW1 ([facility]) Outpatient Attender: Bola LOPEZ.SHANTI-SJFILOMENA 08/2020 12:00:00 AM EDT - 03/27/2021 12:04:45 PM EDT [facility] [place] [address] [facility] [address] 03/10/2021 12:00:00 AM EDT eCW1 [facility]) Outpatient Attender: David Mendoza/Cibolo/Eugenio/Rein dl 03/06/2021 10:00:00 AM EDT MEDENT ([facility]) Outpatient Attender: Paulette Penaloza 03/03 02:30:00 PM EDT MEDENT ([facility] ) Office Visit Attender: David Mendoza/Wagner/Eugenio/Rein dl 02/24/2021 10:30:00 AM EDT MED[facility] ([facility]) [place] [address] [facility] [address] 02/18/2021 12:00:00 AM EDT eCW1 ([facility]) [place] [address] [address] 02/17/2021 12:00:00 AM EDT eCW1 ([facility]) [place] [address] [address] 01/28/2021 12:00:00 AM EDT eCW1 ([facility]) [place] [address] [facility] [address] 01/28/2021 12:00:00 AM EDT eCW1 ([facility]) Office Visit Attender: David Mendoza/Wagner/Eugenio/Rein dl 01/24/2021 11:00:00 AM EDT MEDENT ([facility]) [place] [address] [facility] [address] 01/23/2021 12:00:00 AM EDT eCW1 ([facility]) Office Visit Attender: David Mendoza/Wagner/Eugenio/Rein dl 01/20/2021 01:00:00 PM EDT MEDENT ([facility]) [place] [address] [facility] [address] 01/16/2021 12:00:00 AM EDT eCW1 ([facility]) [place] [address] [facility] [address] 01/07/2021 12:00:00 AM EDT eCW1 ([facility]) Office Visit Attender: David Mendoza/Wagner/Eugenio/Rein dl 01/01/2021 11:00:00 AM EDT MEDENT ([facility]) Office Visit Attender: David Mendoza/Wagner/Eugenio/Rein dl 12/24/2020 09:30:00 AM EDT MED[facility] ([facility]) [place] [address] [facility] [address] 12/19/2020 12:00:00 AM EDT eCW1 ([facility]) [place] [address] [facility] [address] 12/19/2020 12:00:00 AM EDT eCW1 ([facility]) Unknown [address] [facility] [place] [address] 12/10/2020 12:00:00 AM EDT eCW1 ([facility]) Outpatient Attender: Paulette Penaloza 12/06 10:20:00 AM EDT MEDENT ([facility] ) [place] [address] [facility] [address] 12/02/2020 12:00:00 AM EDT eCW1 ([facility]) Unknown [address] [facility] [place] [address] 12/02/2020 12:00:00 AM EDT eCW1 ([facility]) Outpatient Attender: David Mendoza/Wagner/Eugenio/Rein dl 11/29/2020 10:30:00 AM EDT MEDENT ([facility]) Unknown [address] [facility] [place] [address] 11/28/2020 12:00:00 AM EDT eCW1 ([facility]) Outpatient [address] [facility] [place] [address] 11/26/2020 12:00:00 AM EDT eCW1 ([facility]) Unknown [address] [facility] [place] [address] 11/26/2020 12:00:00 AM EDT eCW1 ([facility]) Outpatient Attender: Bola Somers MDReferrer: Suzie Umana MD SJP.SHANTI-SJP.SHANTI 11/06/2020 09:31:15 AM EDT - 11/06/2020 10:04:09 AM EDT [facility] Outpatient Attender: Paulette Penaloza 11/05 09:00:00 AM EDT MEDENT ([facility] ) [place] [address] [facility] [address] 11/04/2020 12:00:00 AM EDT eCW1 ([facility]) [place] [address] [facility] [address] 11/04/2020 12:00:00 AM EDT eCW1 ([facility]) [place] [address] [facility] [address] 10/28/2020 12:00:00 AM EDT eCW1 ([facility]) [place] [address] [facility] [address] 10/21/2020 12:00:00 AM EDT eCW1 ([facility]) Outpatient Attender: David Mendoza/Wagner/Eugenio/Meg figueredo 10/16/2020 09:00:00 AM EDT MEDENT ([facility]) Outpatient Attender: Doyle OROURKE 10/03/2020 12:00:00 AM [facility] Outpatient Attender: Paulette Penaloza 08/19 08:00:00 AM EST MEDENT ([facility] ) Outpatient Referrer: JANET SMITH MD 03/25/2020 12 :00:00 AM EDT Presence of artificial knee joint, bilateral [facility] Presence of artificial knee joint, jose eduardo cool Outpatient Attender: JANET SMITH MD [id number] 03/25/2020 12:00:0 0 AM EDT [facility] Outpatient Attender: Paulette Penaloza 03/12 02:45:00 PM EDT MEDENT ([facility] ) Immunizations Vaccine Date Status Description Data Source(s) influenza, recombinant, quadrIvalent,injectable, prese rvative free 04/21/2021 12:37:00 PM EDT completed eCW1 ([facility]) influenza, recombinant, quadrIvalent,injectable, prese rvative free 04/21/2021 12:37:00 PM EDT completed eCW1 ([facility]) COVID-19 VACCINE Moderna 09/06/2020 12:00:00 AM EST completed [facility] Vaccine Series Complete: YESThis Data wa s Submitted to [facility] [employer]. COVID-19 VACCINE, MRNA-1273, LNP-S (MODERNA)/PF 09/06/2020 1 2:00:00 AM EST completed [facility] COVID-19 VACCINE, MRNA-1273, LNP-S (MODERNA)/PF 08/10/2020 1 2:00:00 AM EST completed [facility] COVID-19 VACCINE Moderna 08/10/2020 12:00:00 AM EST completed [facility] Vaccine Series Complete: NOThis Data was Submitted to [facility] [employer]. This CVX code allows reporting of a vacc ination when formulation is unknown (for example, when recording a Influenza vaccination when noted on a vaccination card) 05/17/2020 08:57:00 AM EDT completed MEDEN T ([facility]) INFLUENZA VACCINE QUADRIVALENT (65 YR UP)/MF59 C.1/PF 05/17/2020 12:00:00 AM EDT completed [facility] Medications Medication Brand Name Start Date Product Form Dose Route Admi nistrative Instructions Pharmacy Instructions Status Indications Reaction Description Data Source(s) Hydrochlorothiazide 12.5 MG Oral Tablet Hydrochlorothiazide 04/21/2021 12:00:00 AM EDT ORAL completed MEDENT ([facility]) Losartan Potassium 25 MG Oral Tablet Losartan Potassium 12:00:00 AM EDT ORAL completed MEDENT ([facility]) Furosemide 20 MG Oral Tablet Furosemide 04/21/2021 12:00:00 AM EDT active MEDENT ([facility]) Sulfamethoxazole 800 MG / Trimethoprim 160 MG Oral Tab let Sulfamethoxazole/Trimethoprim DS 04/11/2021 12:00:00 AM EDT ORAL active MEDENT ([facility] ) Acetaminophen 500 MG Oral Tablet [Tylenol] Tylenol Extra Str ength 03/25/2021 12:00:00 AM EDT active M EDENT ([facility]) Vitamin C 03/25/2021 12:00:00 AM EDT ORAL active MEDENT ([facility]) ceFAZolin Sodium 2 GM/20ML ceFAZolin Sodium 2 GM/20ML 2020 12:00:00 AM EDT active ceFAZolin Sodium 2 GM/20ML eCW1 ([facility]) Cefazolin Sodium 2 GM/20ML Cefazolin Sodium 2 GM/20ML 2020 12:00:00 AM EDT active Cefazolin Sodium 2 GM/20ML eCW1 ([facility]) Cefazolin Sodium 2 GM/20ML Cefazolin Sodium 2 GM/20ML 2020 12:00:00 AM EDT active Cefazolin Sodium 2 GM/20ML eCW1 ([facility]) ceFAZolin Sodium 2 GM/20ML ceFAZolin Sodium 2 GM/20ML 2020 12:00:00 AM EDT active ceFAZolin Sodium 2 GM/20ML eCW1 ([facility]) Multivitamin Men 50+ 12/06/2020 12:00:00 AM EDT ORAL active MEDENT ([facility]) Iron OTC 12/06/2020 12:00:00 AM EDT ORAL completed MEDENT ([facility]) Hydralazine Hydrochloride 25 MG Oral Tablet Hydralazine HCL 12/02/2020 12:00:00 AM EDT ORAL active MEDENT ([facility]) chlorhexidine gluconate 40 MG/ML Medicated Liquid Soap [Hibi clens] Hibiclens 11/30/2020 12:00:00 AM EDT completed MEDENT ([facility] ) Hydralazine Hydrochloride 10 MG Oral Tablet Hydralazine HCL 11/05/2020 12:00:00 AM EDT completed MEDENT ([facility]) Amlodipine 5 MG Oral Tablet Amlodipine Besylate 11/05/2020 12:00:00 A M EDT ORAL completed MEDENT ([facility]) Hydralazine Hydrochloride 25 MG Oral Tab let hydrALAZINE (APRESOLINE) 25 MG tablet hydrALAZINE (APRESOLINE) 25 MG tablet 11/05/2020 12:00:00 AM EDT active [facility] Hydralazine Hydrochloride 25 MG Oral Tablet Hydralazine HCL 11/05/2020 12:00:00 AM EDT completed MEDENT ([facility]) atorvastatin 40 MG Oral Tablet Atorvastatin Calcium 11/04/2020 1 2:00:00 AM EDT ORAL active MEDENT ( [facility]) Furosemide 40 MG Oral Tablet Furosemide 11/04/2020 12:00:00 AM EDT ORAL completed MEDENT ([facility]) Amlodipine 10 MG Oral Tablet Amlodipine Besylate 11/04/2020 12:00:00 AM EDT ORAL completed [facility] ([facility]) atorvastatin 40 MG Oral Tablet atorvastatin (LIPITOR) 40 MG tablet atorvastatin (LIPITOR) 40 MG tablet 11/01/2020 12:00:00 AM EDT active [facility] Nafcillin 100 MG/ML Injectable Solution Nafcillin Sodi um 10 g SOLR Nafcillin Sodium 10 g SOLR 10/28/2020 12:00:00 AM EDT aborte d [facility] Calcitriol 0.84224 MG Oral Capsule calcitriol (ROCALTR OL) 0.25 MCG capsule calcitriol (ROCALTROL) 0.25 MCG capsule 10/25/2020 12:00:00 AM EDT active TAKE 1 CAPSULE BY MOUTH ONCE A D AY Wednesday [facility] tramadol hydrochloride 50 MG Oral Tablet Tramadol HCL 10/11/2020 12:00:00 AM EDT ORAL completed MEDENT ([facility]) Probiotic Product (TERESA-BID PROBIOTIC) TABS 10591-713-54 10/10/2020 12:00:00 AM EDT active TAKE 1 CAPSULE BY MOUTH TWICE DAILY WITH FOOD [facility] Rifampin 150 MG Oral Capsule rifampin (RIFADIN) 150 MG capsule rifampin (RIFADIN) 150 MG capsule 10/10/2020 12:00:00 AM EDT 300 mg Oral aborted Take 300 mg by mouth 2 (two) times a day [facility] gabapentin 800 MG Oral Tablet gabapentin (NEURONTIN) 8 00 MG tablet gabapentin (NEURONTIN) 800 MG tablet 09/16/2020 12:00:00 AM EST 800 mg Oral active Take 800 mg by mouth 2 (two) times a day [facility] Covid-19 vaccine, Unspecified 08/10/2020 12:00:00 AM [...] aborted Take 10 mg by mouth daily [facility] Insurance Providers Payer name Policy type / Coverage type Policy ID Covered democrat ID Covered democrat's relationship to mo Policy Mo Plan Information [id number] [facility] TODAY OPTIONS [id number] Self [id number] MEDICARE [id number] [place] Med[place] B [id number] Self 1 [id number] [place] Med[place]ap [place] B [id number] Self 1 [id number] [place] Med[place]ap Part B [id number] Self [id number] [place] Med[place]ap Part B [id number] Self [id number] Todays Option Medicare Commercial [id number] Self [id number] Tod[employer] Option Medicare Commercial [id number] Self [id number] Tod[employer] Options Commercial [id number] 1881.0 Self [id number] Tod[employer] Option Medicare Commercial [id number] Self [id number] [employer] Options Commercial [id number] 1881.0 Self [id number] [employer] Commercial [id number] 1881.0 Self [id number] [employer] Option Medicare Commercial [id number] Self [id number] [employer] Option Medicare Commercial [id number] Self [id number] [employer] Commercial [id number]1.4 1881.0 Self [id number] [employer] Option Medicare Commercial [id number] Self [id number] [employer] Option Medicare Commercial [id number] Self [id number] Todays Option Medicare Commercial [id number] Self [id number] Tod[employer] Option Medicare Commercial [id number] Self [id number] Todays Option Medicare Commercial [id number] Self [id number] AMER PROG TODAYS OPTIONS G [id number] Self [id number] WELLCARE MEDICARE HMO G [id number] Self [id number] WELLCARE MEDICARE HMO G [id number] Self [id number] Wellcare/Todays Optmcr Commercial [id number] Self [id number] WELLCARE MEDICARE [id number] [id number] WELLCARE MEDICARE [id number] [facility] 17 [id number] MEDICARE [id number] SP [id number] A MEDICARE [id number] SP [id number] A TODAYS OPTIONS/[place]IZ[place] O [id number] S [id number] Medicare Natl Govt Servic Medicare Primary [id number] Self [id number] Medicare Natl Govt Servic Medicare Primary [id number] Self [id number] Medicare Natl Govt Servic Medicare Primary [id number] Self [id number] Medicare Natl Govt Servic Medicare Primary [id number] Self [id number] Wellcare Health Plans(To) Commercial [id number] Self [id number] Medicare Natl Govt Servic Medicare Primary [id number] Self [id number] TODAYS OPTIONS [id number] SP [id number] TODAYS OPTIONS [id number] SP [id number] WELLCARE [id number] SP [id number] Medicare Natl Govt Servic Medicare Primary [id number] Self [id number] MEDICARE [id number] SP [id number] A Medicare Natl Govt Servic Medicare Primary [id number] Self [id number] MEDICARE [id number] SP [id number] Medicare Natl Govt Servic Medicare Primary [id number] Self [id number] Medicare Natl Govt Servic Medicare Primary [id number] Self [id number] Medicare Natl Govt Servic Medicare Primary [id number] Self [id number] Medicare Natl Govt Servic Medicare Primary [id number] Self [id number] Medicare Natl Govt Servic Medicare Primary [id number] Self MEDICARE C [id number] S [id number] A Medicare Natl Govt Servic Medicare Primary [id number] Self [id number] WELLCARE [id number] SP [id number] Medicare Natl Govt Servic Medicare Primary [id number] Self [id number] Problems, Conditions, and Diagnoses Code Display Name Description Problem Type Effective Dates Data Source(s) Z01.810 Encounter for preprocedural cardiovascul ar examination Encounter for preprocedural cardiovascul Diagnosis 03/27/2021 11:21:34 AM EDT [facility] Q21.1 Atrial septal defect Atrial septal defect Diagnosis 11/06/2020 09:31:15 AM EDT [facility] I33.0 Acute and subacute infective endocarditi s Acute and subacute infective endocarditi Diagnosis 11/06/2020 09:31:15 AM EDT [facility] E87.5 [id number] Hyperkalemia Problem 04/29/2021 12:00:00 AM EDT eCW1 ([facility]) Z01.810 Preoperative cardiovascular examination Preoperative cardiovascular examination [id number] 03/27/2021 12:00:00 AM EDT [facility] D63.8 [id number] Anemia in chronic illness Problem 01/16/2021 12:00:00 AM EDT eCW1 ([facility]) [id number] Essential hypertension Essential hypertension Problem 11/29/2020 12:00:00 AM EDT [facility]ART[facility]N ([facility] ) I25.10 Atherosclerosis of [place] co ronary artery of [place] heart without angina pectoris Atherosclerosis of [place] coronary arter y of [place] heart without angina pectoris [id number] 11/06/2020 12:00:00 AM EDT [facility] I10 Hypertension Hypertension 40559570 11/06/2020 12:00:00 A M EDT [facility] N18.9 Chronic kidney disease Chronic kidney disease [id number] 11/06/2020 12:00:00 AM EDT [facility] Q21.1 Atrial septal defect, secundum Atrial septal defect, s ecundum 71098059 11/06/2020 12:00:00 AM EDT [facility] I33.0 Subacute bacterial endocarditis Subacute bacterial end ocarditis 29893602 11/06/2020 12:00:00 AM EDT [facility] D50.0 071188811 Iron deficiency anemia due to chronic blo od loss Problem 11/04/2020 12:00:00 AM EDT eCW1 ([facility]) A49.01 [id number] MSSA (methicillin susceptible Staphylococ cus aureus) Problem 10/21/2020 12:00:00 AM EDT eCW1 ([facility]) I35.8 73520917 Aortic valve endocarditis Problem 10/21/2020 12:00:00 AM EDT eCW1 ([facility]) I10 [id number] Essential (primary) hypertension Problem 10/21/2020 12:00:00 AM EDT eCW1 ([facility]) T84.59XD [id number] 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, subsequent encounter Problem 10/21/2020 12:00:00 A M EDT eCW1 ([facility]) Z96.659 [id number] Presence of unspecified artificial knee j oint Problem 10/21/2020 12:00:00 AM EDT eCW1 ([facility]) M51.36 [id number] DDD (degenerative disc disease), lumbar P roblem 10/21/2020 12:00:00 AM EDT eCW1 ([facility]) Z47.1 Aftercare following bilateral knee joint replacement surgery Aftercare following bilateral knee joint replacement surgery [id number] 12:00:00 AM EDT [facility] Surgeries/Procedures Procedure Description Date Indications Data Source(s) OFFICE OUTPATIENT VISIT 25 MINUTES 04/30/2021 12:00:[facility] OFFICE OUTPATIENT VISIT 10 MINUTES 04/25/2021 12:00:00 AM [facility] Imm: Flublok Quadrivalent 18 years & older 0.5mL IM Influenz a 04/21/2021 12:00:00 AM EDT eC ([facility]) OFFICE OUTPATIENT VISIT 25 MINUTES 04/14/2021 12:00:00 AM [facility] REVJ TOT KNEE ARTHRP FEM&ENTIRE TIBIAL COMPONENT 04/09 12:00:00 AM EDT [facility] OFFICE OUTPATIENT VISIT 15 MINUTES 04/08/2021 12:00:00 AM EDT [facility] ([facility]) OFFICE OUTPATIENT VISIT 25 MINUTES 03/06/2021 12:00:00 AM EDT [facility] ([facility]) OFFICE OUTPATIENT VISIT 25 MINUTES 03/03/2021 12:00:00 AM EDT MED[facility] ([facility]) OFFICE OUTPATIENT VISIT 25 MINUTES 02/24/2021 12:00:00 AM [facility] OFFICE OUTPATIENT VISIT 15 MINUTES 01/24/2021 12:00:00 AM EDT [facility]) Insertion, Non-Biodegradable Drug Delivery Implant 12/10/2020 12:00:00 AM EDT [facility] ([facility]) RMVL PROSTH TOT KNEE PROSTH MMA W/WO INSJ SPACER 12/10 12:00:00 AM EDT [facility] ([facility]) OFFICE OUTPATIENT VISIT 25 MINUTES 12/06/2020 12:00:00 AM EDT [facility]) OFFICE OUTPATIENT VISIT 25 MINUTES 11/29/2020 12:00:00 AM EDT [facility]) ECG ROUTINE ECG W/LEAST 12 LDS W/I&R <td>POCT AMB EKG</td><td>Routine</td><td>11/06/2020 10:28 AM EDT</td><td> Subacute bacterial endocarditis Atrial septal defect, secundum</td><td> </td> 11/06/2020 02:28:00 PM EDT Atrial septal defect, secundumSubacute bacterial endoc [facility] Atrial septal defect, secundum Subacute bacterial endocarditis OFFICE OUTPATIENT VISIT 25 MINUTES 11/05/2020 12:00:00 AM EDT [facility]) OFFICE OUTPATIENT NEW 30 MINUTES 10/16/2020 12:00:00 A M EDT [facility]) Results ID Date Data Source [id number] 04/28/2021 10:22:00 AM EDT [facility]) Name Value Range Interpretation Code Description Data Deepika rce(s) Supporting Document(s) Glucose [Mass/volume] in Serum or Plasma 100 mg/dL 74-99 [facility] ([facility]) 100-125 mg/dL PRE-DIABETES/FASTING >126 mg/dL DIABETES/FASTING Urea nitrogen [Mass/volume] in Serum or Plasma 36 mg/dL 7-18 [facility] ([facility]) Creatinine 2.1 mg/dL 0.6-1.3 [facility] ([facility]) Sodium [Moles/volume] in Serum or Plasma 140 meq/L 136-145 [facility] ([facility]) Chloride [Moles/volume] in Serum or Plasma 104 meq/L 98-107 [facility] ([facility]) Potassium [Moles/volume] in Serum or Plasma 4.4 meq/L 3.5-5.1 [facility] ([facility]) Carbon dioxide, total [Moles/volume] in Serum or Plasma 28 meq/L 21 -32 [facility] ([facility]) Calcium [Mass/volume] in Serum or Plasma 9.6 mg/dL 8.5-10.1 [facility] ([facility]) Glomerular filtration rate/1.73 sq M pre dicted among blacks [Volume Rate/Area] in Serum or Plasma by Creatinine-based formula (MDRD) 38 mL/min [facility] <content>CHRONIC KIDNEY DISEASE STAGING PER NKF</content>
<content></content>
<content>STAGE I & II GFR >= 60 NORMAL TO MILDLY DECREASED</content>
<content>STAGE III GFR 30-59 MODERATELY DECREASED</content>
<content>STAGE IV GFR 15-29 SEVERELY DECREASED</content>
<content>STAGE V GFR <15 VERY LITTLE GFR LEFT</content>
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
<content></content> Glomerular filtration rate/1.73 sq M pre dicted among non-blacks [Volume Rate/Area] in Serum or Plasma by Creatinine-based formula (MDRD) 31 mL/min [facility] ([facility]) ID Date Data Source [id number] 04/21/2021 02:05:00 PM EDT [facility] ([facility]) Name Value Range Interpretation Code Description Data Deepika rce(s) Supporting Document(s) Ferritin [Mass/volume] in Serum or Plasma 188 ng/mL 26-388 [facility] ([facility]) ID Date Data Source [id number] 04/21/2021 02:05:00 PM EDT [facility] ([facility]) Name Value Range Interpretation Code Description Data Deepika rce(s) Supporting Document(s) Iron (Fe) 53 ug/dL 65-175 [facility] Total Iron Binding Capacity 220 ug/dL 250-450 HI DENT ([facility]) Percent Saturation 24.1 % 19.7-50.0 [facility] ([facility]) ID Date Data Source [id number] 04/21/2021 02:05:00 PM EDT [facility] ([facility]) Name Value Range Interpretation Code Description Data Deepika rce(s) Supporting Document(s) C reactive protein [Mass/volume] in Serum or Plasma by High sensitivity method 2.11 mg/dL 0.00-0.30 [facility] ([facility] ) ID Date Data Source [id number] 04/21/2021 02:05:00 PM EDT [facility] ([facility]) Name Value Range Interpretation Code Description Data Deepika rce(s) Supporting Document(s) Urea nitrogen [Mass/volume] in Serum or Plasma 34 mg/dL 7-18 [facility] ([facility]) Glucose [Mass/volume] in Serum or Plasma 81 mg/dL 74-99 [facility] ([facility]) 100-125 mg/dL PRE-DIABETES/FASTING >126 mg/dL DIABETES/FASTING Potassium [Moles/volume] in Serum or Plasma 5.3 meq/L 3.5-5.1 [facility] ([facility]) NOTE: RESULT VERIFIED. NO VISIBLE HEMOLYSIS. Sodium [Moles/volume] in Serum or Plasma 138 meq/L 136-145 [facility] ([facility]) Creatinine 2.6 mg/dL 0.6-1.3 [facility] Carbon dioxide, total [Moles/volume] in Serum or Plasma 27 meq/L 21 -32 [facility] ([facility]) Calcium [Mass/volume] in Serum or Plasma 9.7 mg/dL 8.5-10.1 [facility] Chloride [Moles/volume] in Serum or Plasma 103 meq/L 98-107 [facility] ([facility]) Glomerular filtration rate/1.73 sq M pre dicted among blacks [Volume Rate/Area] in Serum or Plasma by Creatinine-based formula (MDRD) 29 mL/[facility] <content>CHRONIC KIDNEY DISEASE STAGING PER NKF</content>
<content></content>
<content>STAGE I & II GFR >= 60 NORMAL TO MILDLY DECREASED</content>
<content>STAGE III GFR 30-59 MODERATELY DECREASED</content>
<content>STAGE IV GFR 15-29 SEVERELY DECREASED</content>
<content>STAGE V GFR <15 VERY LITTLE GFR LEFT</content>
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
<content></content> Glomerular filtration rate/1.73 sq M pre dicted among non-blacks [Volume Rate/Area] in Serum or Plasma by Creatinine-based formula (MDRD) 24 mL/min [facility] ([facility]) ID Date Data Source [id number] 04/21/2021 02:05:00 PM EDT [facility] ([facility]) Name Value Range Interpretation Code Description Data Deepika rce(s) Supporting Document(s) Erythrocyte sedimentation rate by Westergren method 57 mm/hr 0-[address] [facility] ID Date Data Source [id number] 04/21/2021 02:05:00 PM EDT [facility] ([facility]) Name Value Range Interpretation Code Description Data Deepika rce(s) Supporting Document(s) Leukocytes [#/volume] in Blood by Automated count 9.3 x10*3/UL 4.1-10 .9 [facility] Hematocrit [Volume Fraction] of Blood by Automated count 29.9 % 3 7.0-51.0 [facility] ([facility]) Erythrocytes [#/volume] in Blood by Automated count 3.20 x10*6/UL 4.2 0-6.30 [facility] ([facility]) Hemoglobin [Mass/volume] in Blood 10.3 g/dL 12.0-18.0 [facility] ([facility]) NOTE: RESULT VERIFIED. MCHC 34.4 g/dL 31.0-38.0 [facility]) MCV 93.6 fL 80.0-97.0 [facility]) MCH 32.2 pg 26.0-32.0 [facility]) Erythrocyte distribution width [Ratio] by Automated count 13.0 % 11.6-13.7 [facility] ([facility]) MPV 8.0 FL 7.8-11.0 [facility] Platelets [#/volume] in Blood by Automated count 302 x10*3/UL 140-440 [facility] ([facility]) Mid % 4.8 % 1.7-9.3 [facility] Lymph % 15.8 % 10.0-58.5 [facility]) Lymph # 1.4 x10*3/UL 0.6-4.1 [facility] ([facility]) Neut % 79.4 % 37.0-92.0 [facility]) Mid # 0.5 x10*3/UL 0.1-0.6 [facility] ([facility]) Neut # 7.4 x10*3/UL 2.0-7.8 [facility] ([facility]) ID Date Data Source [id number] 04/04/2021 09:20:00 AM EDT [facility] Name Value Range Interpretation Code Description Data Deepika rce(s) Supporting Document(s) SARS-CoV-2 (COVID-19) RNA [Presence] in Respiratory specimen by JOAQUIM with probe detection Not Detected [facility] This lab was ordered by [facility] and reported by [employer]. ID Date Data Source [id number] 03/25/2021 02:23:00 PM EDT [facility] ([facility]) Name Value Range Interpretation Code Description Data Deepika rce(s) Supporting Document(s) Glucose [Mass/volume] in Serum or Plasma 91 mg/dL 74-99 [facility] ([facility]) 100-125 mg/dL PRE-DIABETES/FASTING >126 mg/dL DIABETES/FASTING Urea nitrogen [Mass/volume] in Serum or Plasma 38 mg/dL 7-18 [facility] ([facility]) Creatinine 2.6 mg/dL 0.6-1.3 [facility] Sodium [Moles/volume] in Serum or Plasma 139 meq/L 136-145 [facility] ([facility]) Potassium [Moles/volume] in Serum or Plasma 4.3 meq/L 3.5-5.1 [facility] ([facility]) Chloride [Moles/volume] in Serum or Plasma 104 meq/L 98-107 [facility] ([facility]) Carbon dioxide, total [Moles/volume] in Serum or Plasma 25 meq/L 21 -32 [facility] ([facility]) Alkaline phosphatase isoenzyme [Units/volume] in Serum or Pl asma 104 mg/dL 46-116 [facility] Calcium [Mass/volume] in Serum or Plasma 9.4 mg/dL 8.5-10.1 [facility] Total Bilirubin 0.5 mg/dL 0.2-1.0 [facility] Alanine aminotransferase [Enzymatic activity/volume] in Seru m or Plasma 26 U/L 12-78 [facility] ([facility]) Aspartate aminotransferase [Enzymatic activity/volume] in Serum or Plasma 27 U/L 15-37 [facility] ([facility] ) Proteinase 3 Ab [Units/volume] in Serum 7.5 g/dL 6.4-8.2 [facility] ([facility]) Albumin [Mass/volume] in Serum or Plasma 3.4 g/dL 3.4-5.0 [facility] A/G Ratio 0.83 CALC 1.00-1.90 [facility] ([facility]) Glomerular filtration rate/1.73 sq M pre dicted among non-blacks [Volume Rate/Area] in Serum or Plasma by Creatinine-based formula (MDRD) 24 mL/min [facility] ([facility]) Glomerular filtration rate/1.73 sq M pre dicted among blacks [Volume Rate/Area] in Serum or Plasma by Creatinine-based formula (MDRD) 29 mL/min [facility] ([facility]) <content>CHRONIC KIDNEY DISEASE STAGING PER NKF</content>
<content></content>
<content>STAGE I & II GFR >= 60 NORMAL TO MILDLY DECREASED</content>
<content>STAGE III GFR 30-59 MODERATELY DECREASED</content>
<content>STAGE IV GFR 15-29 SEVERELY DECREASED</content>
<content>STAGE V GFR <15 VERY LITTLE GFR LEFT</content>
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
<content></content> ID Date Data Source [id number] 03/25/2021 02:23:00 PM EDT [facility] ([facility]) Name Value Range Interpretation Code Description Data Deepika rce(s) Supporting Document(s) Erythrocytes [#/volume] in Blood by Automated count 3.20 x10*6/UL 4.2 0-6.30 [facility] ([facility]) Leukocytes [#/volume] in Blood by Automated count 5.0 x10*3/UL 4.1-10 .9 [facility] ([facility]) Hematocrit [Volume Fraction] of Blood by Automated count 29.5 % 3 7.0-51.0 [facility] ([facility]) Hemoglobin [Mass/volume] in Blood 10.2 g/dL 12.0-18.0 [facility] ([facility]) NOTE: RESULT VERIFIED. MCH 31.7 pg 26.0-32.0 [facility]) MCHC 34.5 g/dL 31.0-38.0 [facility]) MCV 92.0 fL 80.0-97.0 [facility]) Erythrocyte distribution width [Ratio] by Automated count 12.0 % 11.6-13.7 [facility] ([facility]) Platelets [#/volume] in Blood by Automated count 194 x10*3/UL 140-440 [facility] ([facility]) MPV 8.5 FL 7.8-11.0 [facility]) Lymph % 23.9 % 10.0-58.5 [facility]) Lymph # 1.2 x10*3/UL 0.6-4.1 [facility] ([facility]) Mid % 8.1 % 1.7-9.3 [facility] Neut % 68.0 % 37.0-92.0 [facility] Mid # 0.4 x10*3/UL 0.1-0.6 [facility] ([facility]) Neut # 3.4 x10*3/UL 2.0-7.8 [facility] ([facility]) ID Date Data Source [id number] 03/07/2021 02:12:00 PM EDT [facility] ([facility]) Name Value Range Interpretation Code Description Data Deepika rce(s) Supporting Document(s) Erythrocyte sedimentation rate by Westergren method 106 mm/hr 0-20 [facility] ([facility]) ID Date Data Source [id number] 03/07/2021 02:12:00 PM EDT [facility] ([facility]) Name Value Range Interpretation Code Description Data Deepika rce(s) Supporting Document(s) Red Blood Count 2.94 10 4.30-6.10 [facility] ([facility]) White Blood Count 5.3 10 4.0-10.0 [facility] ([facility]) Hemoglobin 9.7 g/dL 13.5-17.5 [facility] ([facility]) Hematocrit 29.9 % 42.0-52.0 [facility] ([facility]) Mean Corpuscular Volume 101.7 fl 80.0-96.0 [facility] ([facility]) Mean Corpuscular Hemoglobin 33.0 pg 27.0-33.0 ME DENT ([facility]) Mean Corpuscular HGB Conc 32.4 g/dL 32.0-36.5 MEDE NT ([facility]) Platelet Count, Automated 252 10 150-450 [facility] NT ([facility]) Neutrophils % 52.9 % 36.0-66.0 [facility] ([facility]) Red Cell Distribution Width 11.6 % 11.5-14.5 ME DENT ([facility]) Lymph % 26.6 % 24.0-44.0 [facility]) [place] % 11.0 % 2.0-8.0 [facility]) Eos % 8.7 % 0.0-3.0 [facility] Nucleated Red Blood Cell % 0.0 % 0-0 MED ENT ([facility]) Baso % 0.2 % 0.0-1.0 [facility] Immature Granulocyte % 0.6 % 0-3.0 [facility] ([facility]) Lymph # 1.4 10 1.5-5.0 [facility] Neutrophils # 2.8 10 1.5-8.5 [facility] ([facility]) [place] # 0.6 10 0.0-0.8 [facility] Baso # 0.0 10 0.0-0.2 [facility]) Eos # 0.5 10 0.0-0.5 [facility] ID Date Data Source [id number] 03/07/2021 02:12:00 PM EDT [facility] ([facility]) Name Value Range Interpretation Code Description Data Deepika rce(s) Supporting Document(s) C reactive protein [Mass/volume] in Serum or Plasma by High sensitivity method 2.78 mg/dL 0.00-0.30 [facility] ([facility] ) ID Date Data Source [id number] 03/03/2021 02:47:00 PM EDT [facility] ([facility]) Name Value Range Interpretation Code Description Data Deepika rce(s) Supporting Document(s) Glucose [Mass/volume] in Serum or Plasma 102 mg/dL 74-99 [facility] ([facility]) 100-125 mg/dL PRE-DIABETES/FASTING >126 mg/dL DIABETES/FASTING Sodium [Moles/volume] in Serum or Plasma 137 meq/L 136-145 [facility] ([facility]) Creatinine 2.2 mg/dL 0.6-1.3 [facility] ([facility]) NOTE: RESULT VERIFIED. Urea nitrogen [Mass/volume] in Serum or Plasma 40 mg/dL 7-18 [facility] ([facility]) NOTE: RESULT VERIFIED. Potassium [Moles/volume] in Serum or Plasma 4.3 meq/L 3.5-5.1 [facility] ([facility]) Carbon dioxide, total [Moles/volume] in Serum or Plasma 28 meq/L 21 -32 [facility] ([facility]) Chloride [Moles/volume] in Serum or Plasma 102 meq/L 98-107 [facility] ([facility]) Alkaline phosphatase isoenzyme [Units/volume] in Serum or Pl asma 101 mg/dL 46-116 [facility] ([facility]) Calcium [Mass/volume] in Serum or Plasma 9.5 mg/dL 8.5-10.1 [facility] Total Bilirubin 0.5 mg/dL 0.2-1.0 [facility] ([facility]) Albumin [Mass/volume] in Serum or Plasma 3.1 g/dL 3.4-5.0 [facility] ([facility]) Aspartate aminotransferase [Enzymatic activity/volume] in Serum or Plasma 31 U/L 15-37 [facility] ([facility] ) Alanine aminotransferase [Enzymatic activity/volume] in Seru m or Plasma 28 U/L 12-78 [facility] ([facility]) Proteinase 3 Ab [Units/volume] in Serum 8.0 g/dL 6.4-8.2 [facility] ([facility]) A/G Ratio 0.63 CALC 1.00-1.90 [facility] ([facility]) Glomerular filtration rate/1.73 sq M pre dicted among blacks [Volume Rate/Area] in Serum or Plasma by Creatinine-based formula (MDRD) 36 mL/min [facility] <content>CHRONIC KIDNEY DISEASE STAGING PER NKF</content>
<content></content>
<content>STAGE I & II GFR >= 60 NORMAL TO MILDLY DECREASED</content>
<content>STAGE III GFR 30-59 MODERATELY DECREASED</content>
<content>STAGE IV GFR 15-29 SEVERELY DECREASED</content>
<content>STAGE V GFR <15 VERY LITTLE GFR LEFT</content>
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
<content></content> Glomerular filtration rate/1.73 sq M pre dicted among non-blacks [Volume Rate/Area] in Serum or Plasma by Creatinine-based formula (MDRD) 29 mL/min [facility] ID Date Data Source [id number] 03/03/2021 02:47:00 PM EDT [facility] Name Value Range Interpretation Code Description Data Deepika rce(s) Supporting Document(s) Leukocytes [#/volume] in Blood by Automated count 5.9 x10*3/UL 4.1-10 .[address] [facility] NOTE: CBC VERIFIED Erythrocytes [#/volume] in Blood by Automated count 2.95 x10*6/UL 4.2 0-6.30 [facility] MCV 94.2 fL 80.0-97.0 [facility] ([facility]) Hematocrit [Volume Fraction] of Blood by Automated count 27.8 % 3 7.0-51.0 [facility] MCH 33.8 pg 26.0-32.0 [facility] ([facility]) Hemoglobin [Mass/volume] in Blood 10.0 g/dL 12.0-18.0 [facility] ([facility]) MCHC 35.9 g/dL 31.0-38.0 [facility] Erythrocyte distribution width [Ratio] by Automated count 12.1 % 11.6-13.7 [facility] ([facility]) Platelets [#/volume] in Blood by Automated count 188 x10*3/UL 140-440 [facility] ([facility]) MPV 8.2 FL 7.8-11.0 [facility]) Lymph % 16.7 % 10.0-58.5 [facility] Lymph # 0.9 x10*3/UL 0.6-4.1 [facility] ([facility]) Mid % 4.8 % 1.7-9.3 [facility]) Neut % 78.5 % 37.0-92.0 [facility] [facility]) Neut # 4.6 x10*3/UL 2.0-7.8 [facility] ([facility]) Mid # 0.4 x10*3/UL 0.1-0.6 [facility] ([facility]) ID Date Data Source ERYTHROCYTE SEDIMENTATION RATE 02/17/2021 12:00:00 AM EDT eC W1 ([facility]) Name Value Range Interpretation Code Description Data Deepika rce(s) Supporting Document(s) 63 0-20 ERYTHROCYTE SEDIMENTATION RATE eCW1 ([facility]) ID Date Data Source C REACTIVE PROTEIN QUANTITATIV (At [facility]) 02/17/2021 12:00 :00 AM EDT eCW1 ([facility]) Name Value Range Interpretation Code Description Data Deepika rce(s) Supporting Document(s) 0.68 0.00-0.30 C REACTIVE PROTEIN QUANTI TATIV eCW1 ([facility]) ID Date Data Source CBC with Differential 02/17/2021 12:00:00 AM EDT eCW1 ([facility]) Name Value Range Interpretation Code Description Data Deepika rce(s) Supporting Document(s) 9.8 13.5-17.5 HEMOGLOBIN eCW1 ([facility]) 5.6 4.0-10.0 WHITE BLOOD COUNT eCW1 ([facility]) 2.97 4.30-6.10 RED BLOOD COUNT eCW1 ([facility]) 33.0 27.0-33.0 MEAN CORPUSCULAR HEMOGLOB IN eCW1 ([facility]) 104.4 80.0-96.0 MEAN CORPUSCULAR VOLUME e CW1 ([facility]) 31.6 32.0-36.5 MEAN CORPUSCULAR HGB CONC eCW1 ([facility]) 31.0 42.0-52.0 HEMATOCRIT eCW1 ([facility]) 12.6 11.5-14.5 RED CELL DISTRIBUTION WID TH eCW1 ([facility]) 59.8 36.0-66.0 NEUTROPHILS % eCW1 ([facility]) 179 150-450 PLATELET COUNT, AUTOMATED eCW1 ([facility]) 8.0 0.0-3.0 EOS % eCW1 ([facility]) 22.9 24.0-44.0 LYMPH % eCW1 ([facility]) 8.6 2.0-8.0 MONO % eCW1 ([facility]) 0.5 0.0-1.0 BASO % eCW1 ([facility]) 1.3 1.5-5.0 LYMPH # eCW1 ([facility]) 0.5 0.0-0.8 MONO # eCW1 ([facility]) 3.4 1.5-8.5 NEUTROPHILS # eCW1 ([facility]) 0.5 0.0-0.5 EOS # eCW1 ([facility]) 0.0 0.0-0.2 BASO # eCW1 ([facility]) ID Date Data Source [id number] 12/05/2020 11:45:00 AM EDT [facility] Name Value Range Interpretation Code Description Data Deepika rce(s) Supporting Document(s) SARS-CoV-2 (COVID-19) RNA [Presence] in Respiratory specimen by JOAQUIM with probe detection Not Detected [facility] This lab was ordered by [facility] and reported by [employer]. ID Date Data Source [id number] 11/15/2020 09:47:00 AM EDT [facility] ([facility]) Name Value Range Interpretation Code Description Data Deepika rce(s) Supporting Document(s) Urea nitrogen [Mass/volume] in Serum or Plasma 29 mg/dL 7-18 [facility] ([facility]) Creatinine 2.5 mg/dL 0.6-1.3 [facility] ([facility]) NOTE: RESULT VERIFIED. Glucose [Mass/volume] in Serum or Plasma 107 mg/dL 74-99 [facility] ([facility]) 100-125 mg/dL PRE-DIABETES/FASTING >126 mg/dL DIABETES/FASTING Sodium [Moles/volume] in Serum or Plasma 141 meq/L 136-145 [facility] ([facility]) Potassium [Moles/volume] in Serum or Plasma 4.0 meq/L 3.5-5.1 [facility] ([facility]) Carbon dioxide, total [Moles/volume] in Serum or Plasma 26 meq/L 21 -32 [facility] ([facility]) Chloride [Moles/volume] in Serum or Plasma 103 meq/L 98-107 [facility] ([facility]) Calcium [Mass/volume] in Serum or Plasma 9.3 mg/dL 8.5-10.1 [facility] ([facility]) Glomerular filtration rate/1.73 sq M pre dicted among blacks [Volume Rate/Area] in Serum or Plasma by Creatinine-based formula (MDRD) 31 mL/min [facility] ([facility]) <content>CHRONIC KIDNEY DISEASE STAGING PER NKF</content>
<content></content>
<content>STAGE I & II GFR >= 60 NORMAL TO MILDLY DECREASED</content>
<content>STAGE III GFR 30-59 MODERATELY DECREASED</content>
<content>STAGE IV GFR 15-29 SEVERELY DECREASED</content>
<content>STAGE V GFR <15 VERY LITTLE GFR LEFT</content>
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
<content></content> Glomerular filtration rate/1.73 sq M pre dicted among non-blacks [Volume Rate/Area] in Serum or Plasma by Creatinine-based formula (MDRD) 25 mL/min [facility] ([facility]) ID Date Data Source [id number] 11/11/2020 10:04:00 AM EDT [facility] ([facility]) Name Value Range Interpretation Code Description Data Deepika rce(s) Supporting Document(s) Glucose [Mass/volume] in Serum or Plasma 134 mg/dL 74-99 [facility] ([facility]) 100-125 mg/dL PRE-DIABETES/FASTING >126 mg/dL DIABETES/FASTING Urea nitrogen [Mass/volume] in Serum or Plasma 24 mg/dL 7-18 [facility] ([facility]) Sodium [Moles/volume] in Serum or Plasma 141 meq/L 136-145 [facility] ([facility]) Creatinine 2.4 mg/dL 0.6-1.3 [facility] Chloride [Moles/volume] in Serum or Plasma 101 meq/L 98-107 [facility] ([facility]) Potassium [Moles/volume] in Serum or Plasma 3.9 meq/L 3.5-5.1 [facility] ([facility]) Carbon dioxide, total [Moles/volume] in Serum or Plasma 28 meq/L 21 -32 [facility] ([facility]) Glomerular filtration rate/1.73 sq M pre dicted among non-blacks [Volume Rate/Area] in Serum or Plasma by Creatinine-based formula (MDRD) 27 mL/min [facility] ([facility]) Calcium [Mass/volume] in Serum or Plasma 9.4 mg/dL 8.5-10.1 [facility] ([facility]) Glomerular filtration rate/1.73 sq M pre dicted among blacks [Volume Rate/Area] in Serum or Plasma by Creatinine-based formula (MDRD) 32 mL/min [facility] ([facility]) <content>CHRONIC KIDNEY DISEASE STAGING PER NKF</content>
<content></content>
<content>STAGE I & II GFR >= 60 NORMAL TO MILDLY DECREASED</content>
<content>STAGE III GFR 30-59 MODERATELY DECREASED</content>
<content>STAGE IV GFR 15-29 SEVERELY DECREASED</content>
<content>STAGE V GFR <15 VERY LITTLE GFR LEFT</content>
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
<content></content> ID Date Data Source [id number] 11/05/2020 09:33:00 AM EDT [facility] ([facility]) Name Value Range Interpretation Code Description Data Deepika rce(s) Supporting Document(s) Glucose [Mass/volume] in Serum or Plasma 121 mg/dL 74-99 [facility] ([facility]) 100-125 mg/dL PRE-DIABETES/FASTING >126 mg/dL DIABETES/FASTING Sodium [Moles/volume] in Serum or Plasma 139 meq/L 136-145 [facility] ([facility]) Urea nitrogen [Mass/volume] in Serum or Plasma 41 mg/dL 7-18 [facility] ([facility]) Creatinine 3.1 mg/dL 0.6-1.3 [facility] ([facility]) Carbon dioxide, total [Moles/volume] in Serum or Plasma 30 meq/L 21 -32 [facility] ([facility]) Chloride [Moles/volume] in Serum or Plasma 98 meq/L 98-107 [facility] ([facility]) Potassium [Moles/volume] in Serum or Plasma 3.3 meq/L 3.5-5.1 [facility] ([facility]) Calcium [Mass/volume] in Serum or Plasma 9.1 mg/dL 8.5-10.1 [facility] ([facility]) Glomerular filtration rate/1.73 sq M pre dicted among blacks [Volume Rate/Area] in Serum or Plasma by Creatinine-based formula (MDRD) 24 mL/min [facility] ([facility]) <content>CHRONIC KIDNEY DISEASE STAGING PER NKF</content>
<content></content>
<content>STAGE I & II GFR >= 60 NORMAL TO MILDLY DECREASED</content>
<content>STAGE III GFR 30-59 MODERATELY DECREASED</content>
<content>STAGE IV GFR 15-29 SEVERELY DECREASED</content>
<content>STAGE V GFR <15 VERY LITTLE GFR LEFT</content>
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
<content></content> Glomerular filtration rate/1.73 sq M pre dicted among non-blacks [Volume Rate/Area] in Serum or Plasma by Creatinine-based formula (MDRD) 20 mL/min [facility] ID Date Data Source [id number] 11/05/2020 09:33:00 AM EDT [facility] Name Value Range Interpretation Code Description Data Deepika rce(s) Supporting Document(s) Leukocytes [#/volume] in Blood by Automated count 5.3 x10*3/UL 4.1-10 .9 [facility] ([facility]) Hemoglobin [Mass/volume] in Blood 11.2 g/dL 12.0-18.0 [facility] ([facility]) NOTE: RESULT VERIFIED. Erythrocytes [#/volume] in Blood by Automated count 3.51 x10*6/UL 4.2 0-6.30 [facility] ([facility] Hematocrit [Volume Fraction] of Blood by Automated count 32.6 % 3 7.0-51.0 [facility] ([facility] MCH 31.8 pg 26.0-32.0 [facility] MCV 92.7 fL 80.0-97.0 [facility] ([facility]) Platelets [#/volume] in Blood by Automated count 301 x10*3/UL 140-440 [facility] ([facility] Erythrocyte distribution width [Ratio] by Automated count 13.8 % 11.6-13.7 [facility] ([facility] MCHC 34.3 g/dL 31.0-38.0 [facility]) MPV 7.9 FL 7.8-11.0 [facility] [facility] Mid % 5.0 % 1.7-9.3 [facility] Lymph % 16.1 % 10.0-58.5 [facility] Neut % 78.9 % 37.0-92.0 [facility] Lymph # 0.8 x10*3/UL 0.6-4.1 [facility] ([facility]) Mid # 0.3 x10*3/UL 0.1-0.6 [facility] ([facility]) Neut # 4.2 x10*3/UL 2.0-7.8 [facility] ([facility]) ID Date Data Source [id number] 10/28/2020 10:42:00 PM EDT [facility] ([facility]) Name Value Range Interpretation Code Description Data Deepika rce(s) Supporting Document(s) Influenza A Amplification Laboratory test result [facility] ([facility]) Negative results do not preclude influen za or RSV virus infection and should not be used as the sole basis for treatment or other patient management decisions. Influenza B Amplification Laboratory test result [facility] ([facility]) Negative results do not preclude influen za or RSV virus infection and should not be used as the sole basis for treatment or other patient management decisions. RSV Amplification Laboratory test result [facility] ([facility]) Negative results do not preclude influen za or RSV virus infection and should not be used as the sole basis for treatment or other patient management decisions. Laboratory test finding (navigational concept) Laboratory test result [facility] ([facility]) A false negative result may occur [...] pathogens. DISCLAIMER: Testing was performed using the [employer] SARS-CoV-2 test. This test was developed and its performance characteristics determined by [employer]. This test has not been FDA cleared [...] or revoked sooner. ID Date Data Source [id number] 10/28/2020 10:42:00 PM EDT [facility] Name Value Range Interpretation Code Description [facility] Supporting Document(s) SARS coronavirus 2 RNA [Presence] in Res piratory specimen by JOAQUIM with probe detection NEGATIVE [facility] This lab was ordered by [facility] a nd reported by [facility]. ID Date Data Source [id number] 10/28/2020 09:09:00 PM EDT [facility] ([facility]) Name Value Range Interpretation Code Description Data [facility] rce(s) Supporting Document(s) White Blood Count 5.0 10 4.0-10.0 [facility] ([facility]) Red Blood Count 2.03 10 4.30-6.10 [facility] ([facility]) Hemoglobin 6.5 g/dL 13.5-17.5 Below lower panic limits [facility] ([facility]) Hematocrit 20.9 % 42.0-52.0 [facility] ([facility]) Mean Corpuscular Volume 103.0 fl 80.0-96.0 [facility] ([facility]) Mean Corpuscular HGB Conc 31.1 g/dL 32.0-36.5 [facility] ([facility]) Red Cell Distribution Width 15.0 % 11.5-14.5 [facility] ([facility]) Mean Corpuscular Hemoglobin 32.0 pg 27.0-33.0 [facility] ([facility]) Platelet Count, Automated 203 10 150-450 [facility] ([facility]) Neutrophils % 64.2 % 36.0-66.0 [facility] ([facility]) Lymph % 16.4 % 24.0-44.0 [facility]) Eos % 7.3 % 0.0-3.0 [facility] [place] % 11.1 % 2.0-8.0 [facility] Baso % 0.4 % 0.0-1.0 [facility] Nucleated Red Blood Cell % 0.0 % 0-0 [facility] ([facility]) Immature Granulocyte % 0.6 % 0-3.0 [facility] ([facility]) Neutrophils # 3.2 10 1.5-8.5 [facility] ([facility]) [place] # 0.6 10 0.0-0.8 [facility] Lymph # 0.8 10 1.5-5.0 [facility] [facility] Eos # 0.4 10 0.0-0.5 [facility] [facility] Baso # 0.0 10 0.0-0.2 [facility] ID Date Data Source [id number] 10/28/2020 07:06:00 PM EDT [facility] ([facility]) Name Value Range Interpretation Code Description Data Deepika rce(s) Supporting Document(s) Laboratory test finding (navigational concept) 24.0 % 38.0-51.0 [facility] ([facility]) Laboratory test finding (navigational concept) 123 mg/dL 70-105 [facility] ([facility]) Laboratory test finding (navigational concept) 143 meq/L 136-145 [facility] ([facility]) Laboratory test finding (navigational concept) 3.4 meq/L 3.5-5.1 [facility] ([facility]) Laboratory test finding (navigational concept) 106 meq/L 98-109 [facility] ([facility]) Laboratory test finding (navigational concept) 28.0 MM/L 23.0-27.0 [facility] ([facility]) Laboratory test finding (navigational concept) 4.8 mg/dL 4.5-5.3 [facility] ([facility]) Laboratory test finding (navigational concept) 2.5 mg/dL 0.6-1.[address] [facility] ([facility]) Laboratory test finding (navigational concept) 25 mg/dL 8-[address] [facility] ([facility]) ID Date Data Source [id number] 10/28/2020 06:48:00 PM EDT [facility] ([facility]) Name Value Range Interpretation Code Description Data Deepika rce(s) Supporting Document(s) Prothrombin Time 14.8 s 12.5-14.[address] [facility] ([facility]) Inr 1.13 [facility] ([place] [facility] THERAPUTIC HUMAN INR VALUES INDICATIONS NORMAL RANGES PROPHYLAXIS/TREATMENT OF: VENOUS THROMBOSIS 2.0-3.0 PULMONARY EMBOLISM 2.0-3.0 PREVENTION OF SYSTEMIC EMBOLISM FROM: TISSUE HEART VALVES 2.0-3.0 ACUTE MYOCARDIAL INFARCTION 2.0-3.0 VALVULAR HEART DISEASE 2.0-3.0 ATRIAL FIBRILLATION 2.0-3.0 MECHANICAL VALVES(HIGH RISK) 2.5-3.5 RECURRENT MYOCARDIAL INFARCTION 2.5-3.5 ID Date Data Source [id number] 10/28/2020 06:48:00 PM EDT [facility] ([facility]) Name Value Range Interpretation Code Description Data Deepika rce(s) Supporting Document(s) Hemoglobin 7.9 g/dL 13.5-17.5 [facility] ([facility]) Red Blood Count 2.42 10 4.30-6.10 [facility] ([facility]) White Blood Count 5.9 10 4.0-10.0 [facility] ([facility]) Mean Corpuscular Volume 103.7 fl 80.0-96.0 [facility] Hematocrit 25.1 % 42.0-52.0 [facility]) Mean Corpuscular Hemoglobin 32.6 pg 27.0-33.0 [facility] ([facility]) Platelet Count, Automated 231 10 150-450 [facility] ([facility]) Mean Corpuscular HGB Conc 31.5 g/dL 32.0-36.5 [facility] ([facility]) Red Cell Distribution Width 14.9 % 11.5-14.5 [facility] ([facility]) [place] % 10.1 % 2.0-8.0 [facility] Lymph % 16.2 % 24.0-44.0 [facility] Neutrophils % 65.7 % 36.0-66.0 [facility] ([facility]) Immature Granulocyte % 0.3 % 0-3.0 [facility] ([facility]) Eos % 7.2 % 0.0-3.0 [facility] ([place] [facility]) Baso % 0.5 % 0.0-1.0 [facility] ([place] [facility]) Nucleated Red Blood Cell % 0.0 % 0-0 [facility] ([facility]) Neutrophils # 3.9 10 1.5-8.5 [facility] ([facility]) Lymph # 1.0 10 1.5-5.0 [facility] ([place] [facility]) [place] # 0.6 10 0.0-0.8 [facility] ([place] [facility]) Eos # 0.4 10 0.0-0.5 [facility] ([place] [facility]) Baso # 0.0 10 0.0-0.2 [facility] ([place] [facility]) ID Date Data Source [id number] 10/28/2020 06:48:00 PM EDT [facility] ([facility]) Name Value Range Interpretation Code Description Data Deepika rce(s) Supporting Document(s) Packed Cells Laboratory test result [facility] ([facility] TRANSFUSED PRODUCT: PACKED CELLS COUNT: 1 ID Date Data Source [id number] 10/28/2020 06:48:00 PM EDT [facility] ([facility]) Name Value Range Interpretation Code Description Data Deepika rce(s) Supporting Document(s) Blood Type Laboratory test result [facility] ([facility]) AB Screen (Indirect Sloan)Vis Laboratory test result [facility] ([facility]) ID Date Data Source [id number] 10/28/2020 06:48:00 PM EDT [facility] ([facility]) Name Value Range Interpretation Code Description Data Deepika rce(s) Supporting Document(s) Lipoprotein lipase [Enzymatic activity/volume] in Serum or P lasma 315 U/L 73-393 [facility] ([facility]) Thyrotropin [Units/volume] in Serum or Plasma by Detec tion limit <= 0.05 mIU/L 1.750 uIU/ML 0.358-3.740 [facility] ([facility] Thyroxine (T4) free [Mass/volume] in Serum or Plasma 0.71 ng/dL 0.76- 1.46 [facility] ([facility] ID Date Data Source [id number] 10/28/2020 06:48:00 PM EDT [facility] ([facility]) Name Value Range Interpretation Code Description Data Deepika rce(s) Supporting Document(s) Creatinine For GFR 2.18 mg/dL 0.70-1.30 [facility] ([facility]) Blood Urea Nitrogen 27 mg/dL 7-18 [facility] ([facility]) Glucose, Fasting 133 mg/dL 70-100 [facility] ([facility]) Glomerular Filtration Rate 31.7 [facility] ([facility]) <content>Units are mL/min/1.73 m2</content>
<content></content>
<content>Chronic Kidney Disease Staging per NKF:</content>
<content></content>
<content>Stage I & II GFR >=60 Normal to Mildly Decreased</content>
<content>Stage III GFR 30- 59 Moderately Decreased</content>
<content>Stage IV GFR 15-29 Severely Decreased</content>
<content>Stage V GFR <15 Very Little GFR Left</content>
<content>ESRD GFR <15 on NETWORK SERVICES PROJECT MANAGER</content>
<content></content> Sodium Level 145 meq/L 136-145 [facility] ([facility]) Potassium Serum 3.5 meq/L 3.5-5.1 [facility] ([facility]) Chloride Level 108 meq/L 98-107 [facility] ([facility]) Calcium Level 9.0 mg/dL 8.8-10.2 [facility] ([facility]) Anion Gap 8 meq/L 8-16 [facility] Carbon Dioxide Level 29 meq/L 21-32 [facility] ([facility]) ID Date Data Source [id number] 10/28/2020 06:48:00 PM EDT [facility] ([facility]) Name Value Range Interpretation Code Description Data Deepika rce(s) Supporting Document(s) Alt/SGPT 14 U/L 12-78 [facility] ([facility]) Ast/Sgot 20 U/L 7-37 [facility] ([facility]) Alkaline Phosphatase 99 U/L 45-117 [facility] ([facility]) Bilirubin,Total 1.2 mg/dL 0.2-1.0 [facility] ([facility]) Bilirubin,Direct 0.1 mg/dL 0.0-0.2 [facility] ([facility]) Total Protein 7.3 GM/DL 6.4-8.2 [facility] ([facility]) Albumin 2.1 GM/DL 3.2-5.2 [facility] ([facility]) Albumin/Globulin Ratio 0.4 [facility] ([facility]) ID Date Data Source [id number] 10/28/2020 06:48:00 PM EDT [facility] ([facility]) Name Value Range Interpretation Code Description Data Deepika e(s) Supporting Document(s) CPK Creatine Phosphokinase 136 U/L 39-308 [facility] ([facility]) Troponin I Laboratory test result [facility] ([facility]) <content>Troponin I Reference Interval f or Siemens [place] LOCI:</content>
<content></content>
<content>99th Percentile= 0.00-0.045 ng/ml</content>
<content></content>
<content>Risk Stratification:</content>
<content><= 0.10 ng/ml Decreased Risk for Adverse Clinical</content>
<content>Events.</content>
<content>0.10-1.50 ng/ml Increased Risk for Adverse Clinical</content>
<content>Events. Evaluation of additional</content>
<content>criterion and/or repeat testing in 2-6</content>
<content>hours is suggested to rule out myocardial</content>
<content>damage.</content>
<content>>= 1.50 ng/ml Indicative of Myocardial Injury.</content>
<content></content> MB/CK Relative Index 2.35 [facility] ([facility]) <content>DIAGNOSIS CRITERIA</content>
<content>MMB ng/ml Relative Index (RI)</content>
<content>NON-AMI < or = 5 N/A</content>
<content>PHELPS ZONE > 5 < or = 4</content>
<content>AMI > 5 > 4</content>
<content></content> CK-MB Value Mass 3.2 ng/mL [facility] ([facility]) ID Date Data Source [id number] 10/28/2020 06:48:00 PM EDT [facility]) Name Value Range Interpretation Code Description Data Deepika rce(s) Supporting Document(s) aPTT in Blood by Coagulation assay 43.9 s 24.2-38.5 [facility]) ID Date Data Source [id number] 10/02/2020 12:29:00 PM EST [facility]) Name Value Range Interpretation Code Description Data Deepika rce(s) Supporting Document(s) Appearance, Urine RFX Laboratory test result [facility] Color, Urine RFX Laboratory test result [facility] PH,Urine RFX 6.0 units 5.0-9.0 [facility] Specific [place] Ur Auto RFX 1.018 1.002-1.035 [facility] Protein, Urine Auto RFX Laboratory test result [facility] ([facility]) Glucose, Urine (Ua) Auto RFX Laboratory test result [facility] ([facility]) Ketone, Urine Auto RFX Laboratory test result [facility] ([facility]) Urobilinogen, Urine Auto RFX 0.2 mg/dL 0.0-2.0 [facility] ([facility]) Bilirubin, Urine Auto RFX Laboratory test result [facility] ([facility]) Nitrite, Urine Auto RFX Laboratory test result [facility] ([facility]) Leukocyte Esterase Ur Auto RFX Laboratory test result [facility] ([facility]) WBC, Urine Auto RFX 1 /HPF 0-[address] [facility] Blood, Urine Blood RFX Laboratory test result [facility] ([facility]) RBC, Urine Auto RFX 11 /HPF 0-[address] [facility] ([facility]) Bacteria, Urine Auto RFX Laboratory test result [facility] ([facility]) Squam Epithelial Cell Ur Aurfx 0 /HPF 0-6 [facility] ([facility]) Hyaline Cast, Urine Auto RFX 0 /LPF 0-1 [facility] ([facility]) ID Date Data Source [id number] 10/02/2020 11:15:00 AM EST [facility] ([facility]) Name Value Range Interpretation Code Description Data Deepika rce(s) Supporting Document(s) Influenza A Amplification Laboratory test result [facility] ([facility]) Negative results do not preclude influen za or RSV virus infection and should not be used as the sole basis for treatment or other patient management decisions. Influenza B Amplification Laboratory test result [facility] ([facility]) Negative results do not [...] test finding (navigational concept) Laboratory test result [facility] ([facility]) A false negative [...] pathogens. DISCLAIMER: Testing was performed using the [employer] SARS-CoV-2 test. This test was developed and its performance characteristics determined by [employer]. This test has not been FDA cleared [...] or revoked sooner. ID Date Data Source [id number] 10/02/2020 11:15:00 AM EST [facility] Name Value Range Interpretation Code Description Data Deepika rce(s) Supporting Document(s) SARS coronavirus 2 RNA [Presence] in Res piratory specimen by JOAQUIM with probe detection NEGATIVE [facility] This lab was ordered by [facility] a nd reported by [facility]. ID Date Data Source [id number] 10/02/2020 10:31:00 AM EST [facility] ([facility]) Name Value Range Interpretation Code Description Data Deepika rce(s) Supporting Document(s) Laboratory test finding (navigational concept) 119 mg/dL 70-105 [facility] ([facility]) Laboratory test finding (navigational concept) 31.0 % 38.0-51.0 [facility] ([facility]) Laboratory test finding (navigational concept) 136 meq/L 136-145 [facility] ([facility]) Laboratory test finding (navigational concept) 4.3 meq/L 3.5-5.1 [facility] ([facility]) Laboratory test finding (navigational concept) 4.7 mg/dL 4.5-5.3 [facility] ([facility]) Laboratory test finding (navigational concept) 103 meq/L 98-109 [facility] ([facility]) Laboratory test finding (navigational concept) 32 mg/dL 8-26 [facility] ([facility]) Laboratory test finding (navigational concept) 27.0 MM/L 23.0-27.0 [facility] ([facility]) Laboratory test finding (navigational concept) 2.6 mg/dL 0.6-1.3 [facility] ([facility]) ID Date Data Source [id number] 10/02/2020 10:26:00 AM EST [facility] ([facility]) Name Value Range Interpretation Code Description Data Deeipka rce(s) Supporting Document(s) C reactive protein [Mass/volume] in Serum or Plasma by High sensitivity method 34.60 mg/dL 0.00-0.30 [facility] Natriuretic peptide.B prohormone N-Terminal [Mass/volu me] in Serum or Plasma 1788 pg/mL [facility] ID Date Data Source [id number] 10/02/2020 10:26:00 AM EST [facility] Name Value Range Interpretation Code Description Data Deepika rce(s) Supporting Document(s) CPK Creatine Phosphokinase 1108 U/L 39-308 [facility]) MB/CK Relative Index 0.26 [facility] <content>DIAGNOSIS CRITERIA</content>
<content>MMB ng/ml Relative Index (RI)</content>
<content>NON-AMI < or = 5 N/A</content>
<content>PHELPS ZONE > 5 < or = 4</content>
<content>AMI > 5 > 4</content>
<content></content> CK-MB Value Mass 2.9 ng/mL [facility] ([facility]) Troponin I 0.03 ng/mL [facility] <content>Troponin I Reference Interval f or Siemens [place] LOCI:</content>
<content></content>
<content>99th Percentile= 0.00-0.045 ng/ml</content>
<content></content>
<content>Risk Stratification:</content>
<content><= 0.10 ng/ml Decreased Risk for Adverse Clinical</content>
<content>Events.</content>
<content>0.10-1.50 ng/ml Increased Risk for Adverse Clinical</content>
<content>Events. Evaluation of additional</content>
<content>criterion and/or repeat testing in 2-6</content>
<content>hours is suggested to rule out myocardial</content>
<content>damage.</content>
<content>>= 1.50 ng/ml Indicative of Myocardial Injury.</content>
<content></content> ID Date Data Source [id number] 10/02/2020 10:26:00 AM EST [facility] ([facility]) Name Value Range Interpretation Code Description Data Deepika rce(s) Supporting Document(s) Erythrocyte sedimentation rate by Westergren method 96 mm/hr 0-20 [facility] ([facility]) ID Date Data Source [id number] 10/02/2020 10:26:00 AM EST [facility] ([facility]) Name Value Range Interpretation Code Description Data Deepika rce(s) Supporting Document(s) White Blood Count 10.1 10 4.0-10.0 [facility] ([facility]) Hemoglobin 10.5 g/dL 13.5-17.5 [facility] Red Blood Count 3.27 10 4.30-6.10 [facility] ([facility]) Mean Corpuscular Volume 100.0 fl 80.0-96.0 [facility]) Mean Corpuscular Hemoglobin 32.1 pg 27.0-33.0 [facility] ([facility]) Hematocrit 32.7 % 42.0-52.0 [facility] [facility] Red Cell Distribution Width 13.0 % 11.5-14.5 [facility] ([facility]) Mean Corpuscular HGB Conc 32.1 g/dL 32.0-36.5 [facility] ([facility]) Neutrophils % 84.5 % 36.0-66.0 [facility] ([facility]) Lymph % 6.3 % 24.0-44.0 [facility] [facility]) Platelet Count, Automated 129 10 150-450 [facility] ([facility]) [place] % 8.3 % 2.0-8.0 [facility] Eos % 0.0 % 0.0-3.0 [facility] [facility]) Immature Granulocyte % 0.7 % 0-3.0 [facility] ([facility]) Baso % 0.2 % 0.0-1.0 [facility] [facility]) Nucleated Red Blood Cell % 0.0 % 0-0 [facility] ([facility]) Neutrophils # 8.6 10 1.5-8.5 [facility] ([facility]) Lymph # 0.6 10 1.5-5.0 [facility] [place] # 0.8 10 0.0-0.8 [facility] ([place] Eos # 0.0 10 0.0-0.5 [facility] ([facility] Baso # 0.0 10 0.0-0.2 [facility] ([facility]) ID Date Data Source [id number] 10/02/2020 10:26:00 AM EST [facility] ([facility]) Name Value Range Interpretation Code Description Data Deepika rce(s) Supporting Document(s) Lactate [Mass/volume] in Serum or Plasma 1.2 mmol/L 0.4-2.0 [facility] ([facility]) Y/N query for Sepsis Lactate Rule: Y ID Date Data Source [id number] 08/19/2020 08:47:00 AM EST [facility] ([facility]) Name Value Range Interpretation Code Description Data Deepika rce(s) Supporting Document(s) Ferritin [Mass/volume] in Serum or Plasma 76 ng/mL 26-388 [facility] ([facility]) ID Date Data Source [id number] 08/19/2020 08:47:00 AM EST [facility] ([facility]) Name Value Range Interpretation Code Description Data Deepika rce(s) Supporting Document(s) Iron (Fe) 118 ug/dL 65-175 [facility] Total Iron Binding Capacity 274 ug/dL 250-450 ME DENT ([facility]) Percent Saturation 43.1 % 19.7-50.0 [facility] ([facility]) ID Date Data Source [id number] 08/19/2020 08:47:00 AM EST [facility] ([facility]) Name Value Range Interpretation Code Description Data Deepika rce(s) Supporting Document(s) Glucose [Mass/volume] in Serum or Plasma 93 mg/dL 74-99 [facility] ([facility]) 100-125 mg/dL PRE-DIABETES/FASTING >126 mg/dL DIABETES/FASTING Creatinine 1.8 mg/dL 0.6-1.3 [facility] ([facility]) Urea nitrogen [Mass/volume] in Serum or Plasma 20 mg/dL 7-18 [facility] ([facility]) Sodium [Moles/volume] in Serum or Plasma 139 meq/L 136-145 [facility] ([facility]) Potassium [Moles/volume] in Serum or Plasma 4.3 meq/L 3.5-5.1 [facility] ([facility]) Chloride [Moles/volume] in Serum or Plasma 102 meq/L 98-107 [facility] ([facility]) Calcium [Mass/volume] in Serum or Plasma 9.1 mg/dL 8.5-10.1 [facility] ([facility]) Carbon dioxide, total [Moles/volume] in Serum or Plasma 30 meq/L 21 -32 [facility] ([facility]) Glomerular filtration rate/1.73 sq M pre dicted among non-blacks [Volume Rate/Area] in Serum or Plasma by Creatinine-based formula (MDRD) 37 mL/min [facility] ([facility]) Glomerular filtration rate/1.73 sq M pre dicted among blacks [Volume Rate/Area] in Serum or Plasma by Creatinine-based formula (MDRD) 45 mL/min [facility] ([facility]) <content>CHRONIC KIDNEY DISEASE STAGING PER NKF</content>
<content></content>
<content>STAGE I & II GFR >= 60 NORMAL TO MILDLY DECREASED</content>
<content>STAGE III GFR 30-59 MODERATELY DECREASED</content>
<content>STAGE IV GFR 15-29 SEVERELY DECREASED</content>
<content>STAGE V GFR <15 VERY LITTLE GFR LEFT</content>
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
<content></content> ID Date Data Source [id number] 03/26/2020 10:09:38 AM EDT [facility] XR KNEE 4 OR MORE VIEWS [id number] RESUL TInterpreted by:Hubert Mac MDBILATERAL KNEESCLINICAL STATEMENT: [...] rce(s) Supporting Document(s) ID Date Data Source [id number] 03/25/2020 02:20:00 PM EDT [facility] Name Value Range Interpretation Code Description Data Deepika rce(s) Supporting Document(s) Glucose [Mass/volume] in Serum or Plasma 158 mg/dL 74-99 [facility] ([facility]) 100-125 mg/dL PRE-DIABETES/FASTING >126 mg/dL DIABETES/FASTING Urea nitrogen [Mass/volume] in Serum or Plasma 31 mg[facility] NOTE: bun and creat verified Sodium [Moles/volume] in Serum or Plasma 143 meq/L 136-[address] [facility] Creatinine 1.8 mg/dL 0.6-1.3 [facility] Potassium [Moles/volume] in Serum or Plasma 3.8 meq/L 3.5-5.1 [facility] ([facility]) Chloride [Moles/volume] in Serum or Plasma 105 meq/L 98-107 [facility] ([facility]) Carbon dioxide, total [Moles/volume] in Serum or Plasma 29 meq/L 21 -32 [facility] ([facility]) Calcium [Mass/volume] in Serum or Plasma 8.9 mg/dL 8.5-10.1 [facility] ([facility]) Glomerular filtration rate/1.73 sq M pre dicted among non-blacks [Volume Rate/Area] in Serum or Plasma by Creatinine-based formula (MDRD) 37 mL/min [facility] ([facility]) Glomerular filtration rate/1.73 sq M pre dicted among blacks [Volume Rate/Area] in Serum or Plasma by Creatinine-based formula (MDRD) 45 mL/min [facility] ([facility]) <content>CHRONIC KIDNEY DISEASE STAGING PER NKF</content>
<content></content>
<content>STAGE I & II GFR >= 60 NORMAL TO MILDLY DECREASED</content>
<content>STAGE III GFR 30-59 MODERATELY DECREASED</content>
<content>STAGE IV GFR 15-29 SEVERELY DECREASED</content>
<content>STAGE V GFR <15 VERY LITTLE GFR LEFT</content>
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
<content></content> ID Date Data Source [id number] 03/25/2020 11:57:41 AM EDT [facility] Name Value Range Interpretation Code Description Data Deepika rce(s) Supporting Document(s) Progress Note [facility] [id number] [facility] [file] [id number] ID Date Data Source [id number] 03/12/2020 02:51:00 PM EDT [facility] ([facility]) Name Value Range Interpretation Code Description Data Deepika rce(s) Supporting Document(s) Cobalamin (Vitamin B12) [Mass/volume] in Serum or Plasma 809 pg/mL 2 47-911 [facility] ([facility]) VITAMIN B12 NORMAL RANGE NORMAL 247 - 911 PG/ML INDETERMINATE 211 - 246 PG/ML DEFICIENT LESS THAN 211 PG/ML Ferritin [Mass/volume] in Serum or Plasma 78 ng/mL 26-388 [facility] ([facility]) ID Date Data Source [id number] 03/12/2020 02:51:00 PM EDT [facility] ([facility]) Name Value Range Interpretation Code Description Data Deepika rce(s) Supporting Document(s) Iron (Fe) 59 ug/dL 65-175 [facility] ([facility]) Percent Saturation 20.6 % 19.7-50.0 [facility] ([facility]) Total Iron Binding Capacity 286 ug/dL 250-450 ME DENT ([facility]) ID Date Data Source [id number] 03/12/2020 02:51:00 PM EDT [facility] ([facility]) Name Value Range Interpretation Code Description Data Deepika rce(s) Supporting Document(s) Cholesterol [Mass/volume] in Serum or Plasma 151 mg/dL 131-200 [facility] ([facility]) Triglyceride [Mass/volume] in Serum or Plasma 202 mg/dL 30-150 [facility] ([facility]) Cholesterol in LDL [Mass/volume] in Serum or Plasma by calcu lation 68 CALC 50-159 [facility] ([facility]) Cholesterol in HDL [Mass/volume] in Serum or Plasma 43 mg/dL 35-60 [facility] ([facility]) ID Date Data Source [id number] 03/12/2020 02:51:00 PM EDT [facility] ([facility]) Name Value Range Interpretation Code Description Data Deepika rce(s) Supporting Document(s) Urea nitrogen [Mass/volume] in Serum or Plasma 41 mg/dL 7-18 [facility] ([facility]) Glucose [Mass/volume] in Serum or Plasma 140 mg/dL 74-99 [facility] ([facility]) 100-125 mg/dL PRE-DIABETES/FASTING >126 mg/dL DIABETES/FASTING Sodium [Moles/volume] in Serum or Plasma 144 meq/L 136-145 [facility] ([facility]) Creatinine 2.2 mg/dL 0.6-1.3 [facility] ([facility]) Potassium [Moles/volume] in Serum or Plasma 3.6 meq/L 3.5-5.1 [facility] ([facility]) Chloride [Moles/volume] in Serum or Plasma 105 meq/L 98-107 [facility] ([facility]) Carbon dioxide, total [Moles/volume] in Serum or Plasma 33 meq/L 21 -32 [facility] ([facility]) Total Bilirubin 0.3 mg/dL 0.2-1.0 [facility] ([facility]) Alkaline phosphatase isoenzyme [Units/volume] in Serum or Pl asma 75 mg/dL 46-116 [facility] ([facility]) Calcium [Mass/volume] in Serum or Plasma 9.3 mg/dL 8.5-10.1 [facility] ([facility]) Aspartate aminotransferase [Enzymatic activity/volume] in Serum or Plasma 20 U/L 15-37 [facility] ([facility] ) Albumin [Mass/volume] in Serum or Plasma 3.9 g/dL 3.4-5.0 [facility] ([facility]) Alanine aminotransferase [Enzymatic activity/volume] in Seru m or Plasma 26 U/L 12-78 [facility] ([facility]) Proteinase 3 Ab [Units/volume] in Serum 8.1 g/dL 6.4-8.2 [facility] ([facility]) A/G Ratio 0.93 CALC 1.00-1.90 [facility] ([facility]) Glomerular filtration rate/1.73 sq M pre dicted among non-blacks [Volume Rate/Area] in Serum or Plasma by Creatinine-based formula (MDRD) 29 mL/min [facility] ([facility]) Glomerular filtration rate/1.73 sq M pre dicted among blacks [Volume Rate/Area] in Serum or Plasma by Creatinine-based formula (MDRD) 36 mL/min [facility] ([facility]) <content>CHRONIC KIDNEY DISEASE STAGING PER NKF</content>
<content></content>
<content>STAGE I & II GFR >= 60 NORMAL TO MILDLY DECREASED</content>
<content>STAGE III GFR 30-59 MODERATELY DECREASED</content>
<content>STAGE IV GFR 15-29 SEVERELY DECREASED</content>
<content>STAGE V GFR <15 VERY LITTLE GFR LEFT</content>
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
<content></content> ID Date Data Source [id number] 03/12/2020 02:51:00 PM EDT [facility] ([facility]) Name Value Range Interpretation Code Description Data Deepika rce(s) Supporting Document(s) Leukocytes [#/volume] in Blood by Automated count 7.0 x10*3/UL 4.1-10 .9 [facility] ([facility]) Hemoglobin [Mass/volume] in Blood 11.1 g/dL 12.0-18.0 [facility] ([facility]) NOTE: RESULT VERIFIED. Erythrocytes [#/volume] in Blood by Automated count 3.42 x10*6/UL 4.2 0-6.30 [facility] Hematocrit [Volume Fraction] of Blood by Automated count 31.6 % 3 7.0-51.0 [facility] ([facility]) MCV 92.2 fL 80.0-97.0 [facility] ([facility]) Erythrocyte distribution width [Ratio] by Automated count 12.3 % 11.6-13.7 [facility] ([facility]) MCHC 35.2 g/dL 31.0-38.0 [facility] ([facility]) MCH 32.4 pg 26.0-32.0 [facility] ([facility]) MPV 8.9 FL 7.8-11.0 [facility] ([facility]) Platelets [#/volume] in Blood by Automated count 205 x10*3/UL 140-440 [facility] ([facility]) Lymph % 19.7 % 10.0-58.5 [facility] Mid % 6.4 % 1.7-9.3 [facility]) Neut % 73.9 % 37.0-92.0 [facility]) Lymph # 1.3 x10*3/UL 0.6-4.1 [facility] ([facility]) Mid # 0.6 x10*3/UL 0.1-0.6 [facility] ([facility]) Neut # 5.1 x10*3/UL 2.0-7.8 [facility] ([facility]) ID Date Data Source [id number] 03/12/2020 02:51:00 PM EDT [facility] ([facility]) Name Value Range Interpretation Code Description Data Deepika rce(s) Supporting Document(s) Cobalamin (Vitamin B12) [Mass/volume] in Serum or Plasma Lab oratory test result [facility] ([facility]) Ferritin [Mass/volume] in Serum or Plasma Laboratory test result [facility] ([facility]) Procedure Social History Code Duration Value Status Description Data Source(s ) Smoking 04/29/2021 12:00:00 AM EDT Never Smoker completed Never S moker eCW1 ([facility]) Smoking 04/21/2021 12:00:00 AM EDT Never Smoker completed Never S moker eCW1 ([facility]) Smoking 04/01/2021 12:00:00 AM EDT Never Smoker completed Never S moker eCW1 ([facility]) Alcohol intake 03/27/2021 12:00:00 AM EDT Ex-drinker (finding) comp leted Ex- drinker (finding) [facility] Smoking 02/17/2021 12:00:00 AM EDT Never Smoker completed Never S moker eCW1 ([facility]) Smoking 02/17/2021 12:00:00 AM EDT Never Smoker completed Never S moker eCW1 ([facility]) Smoking 02/17/2021 12:00:00 AM EDT Never Smoker completed Never S moker eCW1 ([facility]) Smoking 01/28/2021 12:00:00 AM EDT Never Smoker completed Never S moker eCW1 ([facility]) Smoking 01/28/2021 12:00:00 AM EDT Never Smoker completed Never S moker eCW1 ([facility]) Smoking 01/28/2021 12:00:00 AM EDT Never Smoker completed Never S moker eCW1 ([facility]) Smoking 01/16/2021 12:00:00 AM EDT Never Smoker completed Never S moker eCW1 ([facility]) Smoking 12/19/2020 12:00:00 AM EDT Never Smoker completed Never S moker eCW1 ([facility]) Smoking 12/19/2020 12:00:00 AM EDT Never Smoker completed Never S moker eCW1 ([facility]) Smoking 12/19/2020 12:00:00 AM EDT Never Smoker completed Never S moker eCW1 ([facility]) Smoking 11/26/2020 12:00:00 AM EDT Never Smoker completed Never S moker eCW1 ([facility]) Smoking 11/26/2020 12:00:00 AM EDT Never Smoker completed Never S moker eCW1 ([facility]) Smoking 11/26/2020 12:00:00 AM EDT Never Smoker completed Never S moker eCW1 ([facility]) Smoking 11/26/2020 12:00:00 AM EDT Never Smoker completed Never S moker eCW1 ([facility]) Smoking 11/26/2020 12:00:00 AM EDT Never Smoker completed Never S moker eCW1 ([facility]) Smoking 11/26/2020 12:00:00 AM EDT Never Smoker completed Never S moker eCW1 ([facility]) Tobacco use and exposure 11/06/2020 12:00:00 AM EDT Never used co mpleted Never used [facility] Smoking 11/06/2020 12:00:00 AM EDT Former smoker completed Former smoker [facility] Alcohol intake 11/06/2020 12:00:00 AM EDT Not Currently completed [facility] Smoking 11/06/2020 12:00:00 AM EDT Former smoker completed Former smoker [facility] Smoking 11/04/2020 12:00:00 AM EDT Never Smoker completed Never S moker eCW1 ([facility]) Smoking 11/04/2020 12:00:00 AM EDT Never Smoker completed Never S moker eCW1 ([facility]) Smoking 10/21/2020 12:00:00 AM EDT Never Smoker completed Never S moker eCW1 ([facility]) Smoking 10/21/2020 12:00:00 AM EDT Never Smoker completed Never S moker eCW1 ([facility]) Alcohol intake 03/25/2020 12:00:00 AM EDT Current non-d keesha of alcohol (finding) completed Current non-drinker of alcohol (finding) [facility] Tobacco use and exposure 03/25/2020 12:00:00 AM EDT Never used co mpleted Never used [facility] Cigarettes smoked current (pack per day) - Reported 03/25/20 20 12:00:00 AM EDT UNK completed [facility] Smoking 03/25/2020 12:00:00 AM EDT Former smoker completed Former smoker [facility] Vital Signs ID Date Data Source UNK Name Value Range Interpretation Code Description Data Source(s) Body temperature 97.2 [degF] 97.2 [degF] [facility] ([facility], ) Body temperature 97.5 [degF] 97.5 [degF] [facility] ([facility], ) Body height 64 [in_i] 64 [in_i] [facility]) 5'4" Body mass index (BMI) [Ratio] 24.2 kg/m2 24.2 k g/m2 [facility] ([facility]) Systolic blood pressure 150 mm[Hg] [facility] Diastolic blood pressure 72 mm[Hg] 72 mm[Hg] [facility] ([facility]) Heart rate 70 /min 70 /min [facility] ([facility]) Body weight 141.00 [lb_av] 141.00 [lb_av] [facility] ([facility]) Oxygen saturation in Arterial blood by Pulse oximetry 94 % 94 % MART[facility]N ([facility]) Body weight 64.41 kg 64.41 kg eCW1 ([facility]) Body weight 142 [lb_av] 142 [lb_av] eCW1 ([facility]) Body height 63 [in_i] 63 [in_i] eCW1 ([facility]) Body mass index (BMI) [Ratio] 25.15 kg/m2 25.15 kg/m2 eCW1 ([facility]) Heart rate 64 /min 64 /min eCW1 ([facility]) Respiratory rate 16 /min 16 /min eCW1 ([facility]) Body temperature 98 [degF] 98 [degF] eCW1 ([facility]) Body temperature 97.3 [degF] 97.3 [degF] MEDENT ([facility], ) Body height 64 [in_i] 64 [in_i] [facility] ([facility], ) 5'4" [place] body weight 130 [lb_av] 130 [lb_av] MEDEN T ([facility], ) Diastolic blood pressure 62 mm[Hg] 62 mm[Hg] [facility] ([facility], ) Oxygen saturation in Arterial blood by Pulse oximetry 99 % 99 % [facility] ([facility], ) Respiratory rate 17 /min 17 /min [facility] ( [facility], ) Systolic blood pressure 134 mm[Hg] 134 mm[Hg] DEWEY ([facility], ) Body temperature 97.6 [degF] 97.6 [degF] [facility] ([facility], ) Systolic blood pressure 130 mm[Hg] 130 mm[Hg] [facility] Diastolic blood pressure 60 mm[Hg] 60 mm[Hg] [facility] Heart rate 65 /min 65 /min [facility] Respiratory rate 18 /min 18 /min [facility] Body height 160 cm 160 cm [facility] Body weight 62.596 kg 62.596 kg [facility] Body mass index (BMI) [Ratio] 24.45 kg/m2 24.45 kg/m2 [facility] Oxygen saturation in Arterial blood by Pulse oximetry 98 % 98 % [facility] Diastolic blood pressure 74 mm[Hg] 74 mm[Hg] [facility] ([facility]) Heart rate 65 /min 65 /min [facility] ([facility]) Body height 64 [in_i] 64 [in_i] [facility] 5'4" Body weight 137.00 [lb_av] 137.00 [lb_av] MEDEN T ([facility]) Oxygen saturation in Arterial blood by Pulse oximetry 95 % 95 % [facility] ([facility]) Body mass index (BMI) [Ratio] 23.5 kg/m2 23.5 k g/m2 [facility] ([facility]) Systolic blood pressure 126 mm[Hg] 126 mm[facility]Hg] [facility] Body height 64 [in_i] 64 [in_i] [facility] ([facility], ) 5'4" Body temperature 97.4 [degF] 97.4 [degF] [facility] ([facility]) Body weight 140.00 [lb_av] 140.00 [lb_av] MEDEN T ([facility]) Body mass index (BMI) [Ratio] 24.0 kg/m2 24.0 k g/m2 [facility] ([facility]) [place] body weight 130 [lb_av] 130 [lb_av] MEDEN T ([facility]) Body weight 63.504 kg 63.504 kg [facility] ([facility]) Body surface area Derived from formula 1.68 m2 1.68 m2 [facility] ([facility]) Systolic blood pressure 124 mm[Hg] 124 mm[Hg] [facility] Diastolic blood pressure 70 mm[Hg] 70 mm[Hg] [facility] Heart rate 72 /min 72 /min [facility] ([facility]) Body height 64 [in_i] 64 [in_i] [facility]) 5'4" Body weight 138.00 [lb_av] 138.00 [lb_av] MEDEN T ([facility]) Body mass index (BMI) [Ratio] 23.7 kg/m2 23.7 k g/m2 [facility] ([facility]) Body temperature 97.9 [degF] 97.9 [degF] MED[facility] ([facility], ) Body weight 141 [lb_av] 141 [lb_av] eCW1 ([facility]) Body height 63 [in_i] 63 [in_i] eCW1 ([facility]) Body mass index (BMI) [Ratio] 24.97 kg/m2 24.97 kg/m2 eCW1 ([facility]) Heart rate 68 /min 68 /min eCW1 ([facility]) Respiratory rate 18 /min 18 /min eCW1 ([facility]) Body temperature 97.9 [degF] 97.9 [degF] eCW1 ( [facility]) Systolic blood pressure 134 mm[Hg] 134 mm[Hg] e CW1 ([facility]) Diastolic blood pressure 76 mm[Hg] 76 mm[Hg] eCW1 ([facility]) Heart rate 59 /min 59 /min eCW1 ([facility]) Body weight 139 [lb_av] 139 [lb_av] eCW1 ([facility]) Body height 63 [in_i] 63 [in_i] eCW1 ([facility]) Systolic blood pressure 132 mm[Hg] 132 mm[Hg] e CW1 ([facility]) Diastolic blood pressure 72 mm[Hg] 72 mm[Hg] eCW1 ([facility]) Body mass index (BMI) [Ratio] 24.62 kg/m2 24.62 kg/m2 eCW1 ([facility]) Respiratory rate 18 /min 18 /min eCW1 ([facility]) Body temperature 98.1 [degF] 98.1 [degF] eCW1 ( [facility]) Body temperature 98.0 [degF] 98.0 [degF] MEDENT ([facility], ) Body temperature 98.0 [degF] 98.0 [degF] MEDENT ([facility], ) Body temperature 98.8 [degF] 98.8 [degF] MEDENT ([facility], ) Body weight 140 [lb_av] 140 [lb_av] eCW1 ([facility]) Body height 63 [in_i] 63 [in_i] eCW1 ([facility]) Body mass index (BMI) [Ratio] 24.80 kg/m2 24.80 kg/m2 eCW1 ([facility]) Heart rate 82 /min 82 /min eCW1 ([facility]) Respiratory rate 18 /min 18 /min eCW1 ([facility]) Body temperature 98.6 [degF] 98.6 [degF] eCW1 ( [facility]) Systolic blood pressure 144 mm[Hg] 144 mm[Hg] e CW1 ([facility]) Diastolic blood pressure 62 mm[Hg] 62 mm[Hg] eCW1 ([facility]) Body temperature 96.3 [degF] 96.3 [degF] MEDENT ([facility], ) Body temperature 98.2 [degF] 98.2 [degF] MEDENT ([facility], ) Body weight 147 [lb_av] 147 [lb_av] eCW1 ([facility]) Body height 63 [in_i] 63 [in_i] eCW1 ([facility]) Body mass index (BMI) [Ratio] 26.04 kg/m2 26.04 kg/m2 eCW1 ([facility]) Heart rate 78 /min 78 /min eCW1 ([facility]) Respiratory rate 18 /min 18 /min eCW1 ([facility]) Body temperature 98.7 [degF] 98.7 [degF] eCW1 ( [facility]) Systolic blood pressure 134 mm[Hg] 134 mm[Hg] e CW1 ([facility]) Diastolic blood pressure 72 mm[Hg] 72 mm[Hg] eCW1 ([facility]) Diastolic blood pressure 78 mm[Hg] 78 mm[Hg] MED[facility] ([facility]) lt arm Heart rate 76 /min 76 /min MED[facility] ([facility]) Body height 64 [in_i] 64 [in_i] [facility] ([facility]) 5'4" Body weight 146.12 [lb_av] 146.12 [lb_av] MEDEN T ([facility]) Systolic blood pressure 154 mm[Hg] 154 mm[Hg] M EDENT ([facility]) lt arm Diastolic blood pressure 82 mm[Hg] 82 mm[facility]] [facility] lt arm Systolic blood pressure 140 mm[Hg] 140 mm[Hg] [facility] ([facility]) lt arm Oxygen saturation in Arterial blood by Pulse oximetry --post exerci se 93 % 93 % [facility] ([facility]) RM Air Body mass index (BMI) [Ratio] 25.1 kg/m2 25.1 k g/m2 MEDENT ([facility]) [place] body weight 130 [lb_av] 130 [lb_av] MEDEN T ([facility], ) Body temperature 97.8 [degF] 97.8 [degF] [facility] ([facility], ) Respiratory rate 17 /min 17 /min [facility] ( [facility], ) Systolic blood pressure 191 mm[Hg] 191 mm[Hg] [facility], [facility] Body height 64 [in_i] 64 [in_i] [facility] ([facility], ) 5'4" Diastolic blood pressure 83 mm[Hg] 83 mm[Hg] [facility] ([facility], ) Heart rate 74 /min 74 /min [facility] ([facility], ) Oxygen saturation in Arterial blood by Pulse oximetry 97 % 97 % [facility] ([facility], ) Heart rate 85 /min 85 /min eCW1 ([facility]) Body weight 147 [lb_av] 147 [lb_av] eCW1 ([facility]) Body height 63 [in_i] 63 [in_i] eCW1 ([facility]) Body mass index (BMI) [Ratio] 26.04 kg/m2 26.04 kg/m2 eCW1 ([facility]) Respiratory rate 18 /min 18 /min eCW1 ([facility]) Body temperature 98.6 [degF] 98.6 [degF] eCW1 ( [facility]) Systolic blood pressure 128 mm[Hg] 128 mm[Hg] e CW1 ([facility]) Diastolic blood pressure 78 mm[Hg] 78 mm[Hg] eCW1 ([facility]) Systolic blood pressure 118 mm[Hg] 118 mm[Hg] [facility] Diastolic blood pressure 74 mm[Hg] 74 mm[Hg] [facility] Heart rate 65 /min 65 /min [facility] Body height 160 cm 160 cm [facility] Body weight 66.679 kg 66.679 kg [facility] Body mass index (BMI) [Ratio] 26.04 kg/m2 26.04 kg/m2 [facility] Oxygen saturation in Arterial blood by Pulse oximetry 98 % 98 % [facility] Body height 64 [in_i] 64 [in_i] MEDENT ([facility]) 5'4" Body mass index (BMI) [Ratio] 25.2 kg/m2 25.2 k g/m2 MEDENT ([facility]) Systolic blood pressure 122 mm[Hg] 122 mm[Hg] EDENT ([facility]) Diastolic blood pressure 70 mm[Hg] 70 mm[Hg] MEDENT ([facility]) Heart rate 73 /min 73 /min MEDENT ([facility]) Body weight 147.00 [lb_av] 147.00 [lb_av] MEDEN T ([facility]) Oxygen saturation in Arterial blood by Pulse oximetry 96 % 96 % MEDENT ([facility]) Air Body weight 146 [lb_av] 146 [lb_av] eCW1 ([facility]) Body height 63 [in_i] 63 [in_i] eCW1 ([facility]) Body mass index (BMI) [Ratio] 25.86 kg/m2 25.86 kg/m2 eCW1 ([facility]) Heart rate 78 /min 78 /min eCW1 ([facility]) Systolic blood pressure 118 mm[Hg] 118 mm[Hg] e CW1 ([facility]) Diastolic blood pressure 76 mm[Hg] 76 mm[Hg] eCW1 ([facility]) Respiratory rate 18 /min 18 /min eCW1 ([facility]) Body temperature 98.6 [degF] 98.6 [degF] eCW1 ( [facility]) Body weight 165 [lb_av] 165 [lb_av] eCW1 ([facility]) Body height 63 [in_i] 63 [in_i] eCW1 ([facility]) Body mass index (BMI) [Ratio] 29.23 kg/m2 29.23 kg/m2 eCW1 ([facility]) Heart rate 88 /min 88 /min eCW1 ([facility]) Respiratory rate 18 /min 18 /min eCW1 ([facility]) Body temperature 97.7 [degF] 97.7 [degF] eCW1 ( [facility]) Systolic blood pressure 158 mm[Hg] 158 mm[Hg] e CW1 ([facility]) Diastolic blood pressure 84 mm[Hg] 84 mm[Hg] eCW1 ([facility]) Body temperature 97.6 [degF] 97.6 [degF] MEDPRIMITIVO ([facility], ) Oxygen saturation in Arterial blood by Pulse oximetry 97 % 97 % [facility] ([facility], ) Room Air Body height 64 [in_i] 64 [in_i] [facility], [facility] 5'4" Body weight 140.25 [lb_av] 140.25 [lb_av] MEDEN T ([facility], ) Body mass index (BMI) [Ratio] 24.1 kg/m2 24.1 k g/m2 [facility] ([facility]) [place] body weight 130 [lb_av] 130 [lb_av] MEDEN T ([facility]) Body weight 63.617 kg 63.617 kg [facility] ([facility]) Body surface area Derived from formula 1.68 m2 1.68 m2 [facility] ([facility]) Systolic blood pressure 146 mm[Hg] 146 mm[Hg] [facility] ([facility]) Diastolic blood pressure 67 mm[Hg] 67 mm[Hg] [facility] ([facility]) Heart rate 77 /min 77 /min [facility] ([facility]) Systolic blood pressure 120 mm[Hg] 120 mm[Hg] [facility] ([facility]) Diastolic blood pressure 70 mm[Hg] 70 mm[Hg] [facility] ([facility]) Body weight 152.00 [lb_av] 152.00 [lb_av] MEDEN T ([facility]) Oxygen saturation in Arterial blood by Pulse oximetry 97 % 97 % [facility] ([facility]) [facility] Body mass index (BMI) [Ratio] 26.1 kg/m2 26.1 k g/m2 [facility] Heart rate 62 /min 62 /min [facility] Body height 64 [in_i] 64 [in_i] [facility]) 5'4" Systolic blood pressure 124 mm[Hg] 124 mm[Hg] [facility] ([facility]) Diastolic blood pressure 78 mm[Hg] 78 mm[Hg] [facility] ([facility]) Heart rate 66 /min 66 /min [facility] ([facility]) Body height 64 [in_i] 64 [in_i] [facility]) 5'4" Body weight 152.00 [lb_av] 152.00 [lb_av] MEDEN T ([facility]) Oxygen saturation in Arterial blood by Pulse oximetry 94 % 94 % [facility] ([facility]) Body mass index (BMI) [Ratio] 26.1 kg/m2 26.1 k g/m2 MEDENT ([facility]) ID Date Data Source [id number] 03/25/2020 11:31:20 AM EDT [facility] Name Value Range Interpretation Code Description Data Source(s) WEIGHT RECORDED 150 lb 150 lb [facility] Body height Measured 63 in 63 in [facility] Patient Treatment Plan of Care Planned Activity Planned Date Details Description Data Source (s) Cefazolin Sodium 2 GM/20ML 12/24/2020 12:00:00 AM EDT eCW1 ([facility]) ceFAZolin Sodium 2 GM/20ML 12/24/2020 12:00:00 AM EDT eCW1 ([facility]) Cefazolin Sodium 2 GM/20ML 12/24/2020 12:00:00 AM EDT eCW1 ([facility]) ceFAZolin Sodium 2 GM/20ML 12/24/2020 12:00:00 AM EDT eCW1 ([facility]) Hydralazine Hydrochloride 25 MG Oral Tablet 11/05/2020 12:00:00 AM EDT [facility] atorvastatin 40 MG Oral Tablet 11/01/2020 12:00:00 AM EDT [facility] Nafcillin 100 MG/ML Injectable Solution 10/28/2020 12:00:00 AM EDT [facility] Calcitriol 0.70340 MG Oral Capsule 10/25/2020 12:00:00 AM EDT [facility] Rifampin 150 MG Oral Capsule 10/10/2020 12:00:00 AM EDT [facility] Probiotic Product (TERESA-BID PROBIOTIC) TABS 10/10/2020 12:00:00 AM EDT [facility] gabapentin 800 MG Oral Tablet 09/16/2020 12:00:00 AM EST [facility] torsemide 10 MG Oral Tablet [facility]
[2021-05-09 14:18] LABS: RSV AMPLIFICATION NEGATIVE (NEGATIVE)
[2021-05-09] MEDS ORDERED: SENOKOT S TAB PO PRN (14:25)
[2021-05-09] MEDS ORDERED: ONDANSETRON 4MG/2ML VIAL IV PRN (14:25)
[2021-05-09] MEDS ORDERED: BISACODYL 5 MG TAB PO PRN (14:25)
[2021-05-09] MEDS ORDERED: ACETAMINOPHEN 500 MG TAB PO ONE (14:45)
[2021-05-09] MEDS ORDERED: MORPHINE 30 MG TAB **MSIR PO ONE (15:00)
[2021-05-09] MEDS ORDERED: NS 1,000 ML IV SCH (15:00)
--- NOTE | 2021-05-09 17:04 | CR.PDOC ---
General Date of Consultation: May 09, 2021 Consultation REASON FOR CONSULTATION/CHIEF COMPLAINT: Right knee pain HISTORY OF PRESENT ILLNESS: Patient reports acute right knee pain evening. Denies any injury otherwise. Reports that he was quite active on Wednesday walking and doing more than normal activities. Denies any constitut ional symptoms. Was scheduled to come into the office this morning however he was very weak, so his called an ambulance and he was taken to the emergency room instead. The patient did have a history of postoperative anemia after his stage I procedure for his infected right total knee arthroplasty. ALLERGIES: Please see below. HOME MEDICATIONS: Please see below. 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 REVIEW OF SYSTEMS: 10 point system review negative aside from weakness and lethargy and right knee pain. Denies any constitutional symptoms PHYSICAL EXAMINATION: VITAL SIGNS: Please see below. Right knee pain primarily posterior medial. Pain with range of motion. Increase calor and swelling. No significant change in the venous stasis dermatitis to the right lower extremity. No draining sinus tracts or drainage from the incision which appears to be healing well aside from 3 areas of scabbing with the skin intact. X-ray: X-ray imaging was independently ordered and reviewed by myself today. This demonstrated the right total knee revision prosthesis in position with no significant change from the last imaging taken several weeks ago. No periprosthetic fracture persistent effusion persistent heterotopic bone. LABORATORY DATA: Please see below. ASSESSMENT/PLAN: 1. Patient does not demonstrate any overt signs of infection of the revision right total knee at this time. Given his severe complications I am reluctant to aspirate the knee, immediately. I would like to see what his blood work shows and decide on as to whether or not to aspirate the knee later this afternoon. Addendum: The patient does have a slight elevated white count and he continues to have a chronically elevated inflammatory marker. I discussed the patient with infectious disease and the hospitalist service. Given the patient's history and elevated white blood cell count and persistent elevated inflammatory markers, I decided that the knee would be aspirated. Knee aspiration: Utilizing sterile technique, the right knee was cleansed with 4 chlorhexidine swabs. Utilizing sterile gloves and sterile technique, an 18-gauge needle was then introduced superior laterally posterior to the patella and approximately 6 mL of bloody synovial type fluid was aspirated. With repositioning of the needle I could not aspirate any additional fluid. This aspirate did not appear to be consistent with purulence or otherwise. This was sent for Gram stain and culture, aerobic and anaerobic. Follow-up on the results to determine plan moving forward Vital Signs/I&O Vital Signs Date Time Temp Pulse Resp B/P (MAP) Pulse Ox O2 Delivery O2 Flow Rate FiO2 05/09/21 16:03 98.0 16 160/74 98 05/09/21 10:35 78 Laboratory Data Labs 24H Laboratory Tests 2 05/09/21 10:59: Immature Granulocyte % (Auto) 0.4, Neutrophils (%) (Auto) 82.4H, Lymphocytes (%) (Auto) 6.4L, Monocytes (%) (Auto) 10.5H, Eosinophils (%) (Auto) 0.2, Basophils (%) (Auto) 0.1, Neutrophils # (Auto) 9.5H, Lymphocytes # (Auto) 0.7L, Monocytes # (Auto) 1.2H, Eosinophils # (Auto) 0.0, Basophils # (Auto) 0.0, Nucleated Red Blood Cells % (auto) 0.0, Erythrocyte Sedimentation Rate 127H, Prothrombin Time 15.3H, Prothromb Time International Ratio 1.17, Activated Partial Thromboplast Time 33.9, Anion Gap 5L, Glomerular Filtration Rate 25.4L, Lactic Acid Level 0.8, Calcium Level 8.5L, Total Bilirubin 0.7, Direct Bilirubin 0.2, Aspartate Amino Transf (AST/SGOT) 18, Alanine Aminotransferase (ALT/SGPT) 22, Alkaline Phosphatase 131H, Total Creatine Kinase 127, Creatine Kinase MB < 1.0, Creatine Kinase MB Relative Index 0.79, Troponin I < 0.02, C-Reactive Protein, Quantitative 10.00H, Total Protein 6.8, Albumin 3.0L, Albumin/Globulin Ratio 0.8, Lipase 132 05/09/21 11:48: Coronavirus (COVID-19)(PCR) NEGATIVE, Influenza Type A (RT-PCR) NEGATIVE, Influenza Type B (RT-PCR) NEGATIVE, Respiratory Syncytial Virus (PCR) NEGATIVE CBC/BMP Laboratory Tests 05/09/21 10:59 Microbiology Microbiology 05/09/21 Blood Culture, Received Pending 05/09/21 Blood Culture, Received Pending Allergies Coded Allergies: Sulfa (Sulfonamide Antibiotics) (Verified Adverse Reaction, Mild, 05/09/21) Per Dr Umana he stated minimal use due to kidneys Home Medications Scheduled Ascorbic Acid (Vitamin C) 500 Mg Tablet, 1 TAB PO DAILY, (Reported) Aspirin (Ecotrin) 81 Mg Tablet.dr, 81 MG PO DAILY, (Reported) Atenolol (Atenolol) 25 Mg Tab, 25 MG PO DAILY, (Reported) Atorvastatin Calcium (Atorvastatin Calcium) 40 Mg Tablet, 40 MG PO QHS, (Reported) Calcitriol (Rocaltrol) 0.25 Mcg Capsule, 0.25 MCG PO DAILY, (Reported) Cyanocobalamin (Vitamin B-12) (Vitamin B-12) 1,000 Mcg Tablet, 1,000 MCG PO DAILY, (Reported) Furosemide (Furosemide) 20 Mg Tablet, 20 MG PO DAILY, (Reported) Gabapentin (Gabapentin) 800 Mg Tab, 800 MG PO BID, (Reported) Hydralazine HCl (Hydralazine HCl) 25 Mg Tablet, 25 MG PO DAILY, (Reported) Multivitamin (Multivitamin) 1 Each Tablet, 1 TAB PO DAILY, (Reported) Scheduled PRN Acetaminophen (Acetaminophen) 500 Mg Tablet, 1,000 MG PO Q6H PRN for PAIN / FEVER, (Reported) STEPHEN TILLMAN MD May 09, 2021 17:04
--- NOTE | 2021-05-09 17:20 | CR ---
CONSULTATION DATE: 05/09/2021 Asked to consult by Dr. Keith and Dr. Hernández for evaluation of right knee pain and redness in a patient with a history of prosthetic joint infection. HISTORY OF PRESENT ILLNESS: Mr. 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 The patient was initially treated with 8 weeks of intravenous (IV) nafcillin and underwent incision and drainage with synovectomy. He did not fully improve with conservative management. He had persistently elevated erythrocyte sedimentation rate (ESR) and C-reactive protein (CRP), and therefore on December 10 he underwent explantation of this prosthesis and was treated again with 8 weeks of nafcillin and rifampin/cefazolin and rifampin. The patient did well with resolution of knee pain and swelling, and antibiotics were discontinued on February 04. The patient had a knee aspiration done in mid February, which was negative. Blood cultures were negative. His sedimentation rate preoperatively was 72, and CRP was 0.83, but patient was completely asymptomatic. He had a reimplantation done by Dr. Hernández on April 09, and frozen sections from the operating room (OR) were negative. Postoperatively the patient was treated with 10 days of Bactrim. He did well. Wound was healing very well. He had a Prevena dressing. He had no fever or chills. No nausea, vomiting, diarrhea. No trauma. The patient woke up last night with severe knee pain. Could not step on his leg this morning and therefore came to the emergency room. He noticed some increased redness in the right lower extremity and more swelling. MEDICAL HISTORY: 1. Aortic valve endocarditis with MSSA diagnosed September 2020. 2. Coronary artery disease. 3. Iron deficiency anemia. 4. Prosthetic right knee infection with MSSA. Failed conservative treatment and 8 weeks of IV antibiotics. Followed by explanation 12/10/2020 and reimplantation on 04/09/2021. 5. History of hypertension. 6. Degenerative disc disease of the lumbar spine. 7. Osteoarthritis of both knees. 8. Hyperlipidemia. SURGICAL HISTORY: 1. Right knee replacement, February 2019. Explantation 12/10/2020. 2. Right total knee replacement 04/09/2021. 3. Left total knee replacement May 2018. 4. Back surgery in 2019. 5. Cervical spine surgery in 2013. SOCIAL HISTORY: He is . He is lives with his . He does not smoke or drink. 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 ALLERGIES: SULFA, causing acute kidney injury, not a real allergy but an adverse reaction. REVIEW OF SYSTEMS: He had no fever, chills, nausea, vomiting, diarrhea, abdominal pain. No cough or shortness of breath. He has chronic back pain and always walks with a cane. He had no knee pain after surgery until yesterday, when he could not put any pressure on his knee. MEDICATIONS: - morphine - MS. Contin 15 mg by mouth twice a day - Tylenol 1000 mg by mouth three times a day - Lipitor 40 mg every night - MSIR 15 mg every 4 as needed - Zofran 4 mg IV every 4 as needed - Senokot two tablets by mouth twice a day as needed for constipation - hydralazine 25 mg by mouth daily - gabapentin 300 mg by mouth twice a day - furosemide 20 mg by mouth daily - vitamin B12 at 1000 mcg by mouth daily - calcitriol 0.25 mcg by mouth daily - atenolol 25 mg daily - aspirin 81 mg daily - vitamin C 500 mg by mouth daily LABORATORY DATA: White count 11.5, hemoglobin 9.2, hematocrit 28.9, platelets 168, 82% neutrophils, 6% lymphocytes, 10% monocytes, ESR 127, which has increased from 56 on April 09. Sodium 140, potassium 4.2, chloride 109, bicarbonate 26, BUN 40, creatinine 2.64, which has increased from 1.76, glucose 102, calcium 8.5. Bilirubin 0.7, AST 18, ALT 22, alkaline phosphatase 131, CPK 127, CRP 10, total protein 6.8, albumin 3, lipase 132. Blood cultures, two sets, on May 09 are pending. IMAGING DATA: Knee x-ray shows soft tissue swelling with an effusion. Suspected right knee replacement appears intact and stable. Chronic heterotopic ossification seen in the soft tissue. Vascular ultrasound May 09 showed no evidence of deep venous thrombosis. PHYSICAL EXAMINATION: Temperature is 98, pulse 78, respirations 16, blood pressure 160/74, oxygen saturation 98% on room air. A healthy looking gentleman in no acute distress. HEART: Normal S1, S2. Systolic ejection murmur, 2/6, unchanged. LUNGS: Clear. No wheezes, rales, or rhonchi. ABDOMEN: Soft, nontender. No hepatosplenomegaly. EXTREMITIES: Left with no clubbing, cyanosis, or edema. Left total knee replacement scar healed. Normal range of motion. Right knee with significant swelling. Incision with scabs on the inferior aspect and superior aspect of the knee without any drainage. On the right medial aspect of the leg there is erythema, minimal tenderness, which patient has had chronic erythema in that area. He has difficulty with knee flexion with significant pain, but he is able to flex his knee about 90 degrees. Feet with no clubbing, cyanosis. No rashes. No petechial lesions. NEUROLOGIC: Alert and oriented times three. Motor strength normal except for right leg weakness due to pain. IMPRESSION: This is an unfortunate 76-year-old gentleman, admitted with a diagnosis of right prosthetic joint infection with MSSA in September 2020, treated with two full courses of 8 weeks of intravenous (IV) antibiotics, first following synovectomy. Patient has a prosthesis and reimplantation in a 2-step procedure. Intraoperatively frozen biopsies were negative for infection. Patient did well for 1 month and now is admitted with recurrent significant knee pain, increased erythema of the leg, and elevated inflammatory markers, including erythrocyte sedimentation rate (ESR) and C-reactive protein (CRP) with x-rays showing a knee effusion. The suspicion of recurrent infection is very high. PLAN: The case has been discussed with Dr. Keith and Dr. Hernández. Dr. Hernández will be aspirating the knee for culture, cell count. Based on the results, we will decide on incision and drainage (I and D) of the knee with synovectomy and change of the liner. The patient probably would not tolerate a 2-step procedure and therefore will be treated with initially IV antibiotics followed by life-long chronic suppressive therapy. Patient will have knee aspiration by Dr. Hernández in the emergency room (ER) in the next hour. After that I would suggest starting IV vancomycin and ceftriaxone 2 grams every 24 hours. Vancomycin to be renally dosed by pharmacy. Depending on results of cultures, we will adjust his antibiotic. My suspicion is it will be recurrent MSSA, but patient also could have nosocomial pathogens. KURT
--- NOTE | 2021-05-09 18:58 | ECGEPIP ---
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
[2021-05-09] MEDS ORDERED: MORPHINE 30 MG TAB **MSIR PO PRN (19:00)
[2021-05-09] MEDS ORDERED: **hydrALAZINE HCL** 25 MG TAB PO ONE (19:00)
--- NOTE | 2021-05-09 20:04 | HPEPDOC ---
[facility] Medical History & Physical Date of Admission May 09, 2021 Date of Service: May 09, 2021 History and Physical CHIEF COMPLAINT: HISTORY OF PRESENT ILLNESS: 76-year-old male with history of prosthetic joint infection of the right knee diagnosed September 2020 MSSA and aortic valve endocarditis with blood culture and knee culture showing MSSA treated with 8 weeks of intravenous nafcillin,failed conservative treatment with debridement and synovectomy status post explantation 12/10/2020, reimplantation of prosthetic joint 03/2021 s/p iv abx and po bactrim, c/o severe right knee pain, swelling since yesterday, unable to ambulate. Despite pain meds, pain 7-8/10 w.o radiation with joint swelling. Pt was brought in by ambulance, and found to have elevated wbc, esr, crp w/o fever or chills. xray right knee: effusion. US negative for DVT. Pt has erythema on the anterior leg with right knee effusion. Ortho consulted for aspiration. ID consulted w recommendations to start vanco and ceftriaxone after aspiration. PAST MEDICAL HISTORY: Aortic valve endocarditis w mssa, ckd3 baseline creatinine 1.8-1.9, CAD iron deficiency anemia prosthetic joint infection of the right knee MSSA 09/2020 failed conservative treatment with debridement and synovectomy status post explantation 12/10/2020 hypertension lumbar degenerative disc disease uses a cane osteoarthritis of the knee status post prosthetic joint replacement hyper lipidemia PAST SURGICAL HISTORY: Right knee replacement 2019 left knee replacement 2018 L1-L5 back surgery 2019 C1-C5 cervical surgery 2012 colonoscopy debridement and synovectomy of prosthetic joint infection right knee September 2020 post explantation of the right knee December 10, 2020, reimplantation of prosthetic joint 03/2021 s/p iv abx and po bactrim. 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 REVIEW OF SYSTEMS: 10 point system review negative aside from positive findings in HPI HOME MEDICATIONS: Please see below. PHYSICAL EXAMINATION: VITAL SIGNS: See below GENERAL APPEARANCE: Awake alert oriented to person place and time answering questions appropriately no respiratory distress cyanosis icterus jaundice speaks in full sentences without facial drooping no pallor HEENT: Extraocular muscles intact normocephalic atraumatic no JVD thyromegaly cervical lymphadenopathy no tracheal deviation CARDIOVASCULAR: S1-S2 regular rate rhythm 2/6 systolic ejection murmur at the apex radiating to the carotids LUNGS: Air entry is equal bilaterally no kyphosis no scoliosis no adventitious breath sounds clear to auscultation bilaterally ABDOMEN: Positive bowel sounds soft nontender nondistended no hepatosplenomegaly EXTREMITIES:effusion on right knee erythema on anterior harmon w/o induration or crepitus. well healed surgical scars w/o open lesions. LABORATORY DATA: See below. IMAGING: See below MICROBIOLOGY: Please see below. ASSESSMENT: 76-year-old male with right prosthetic knee effusion r/o recurrent infection -s/p aspiration -prn pain meds -iv vanco and iv ceftriaxone day 1 -ID and ortho consulted -ARU consulted -await cultures. -elevate extremity h/o mssa Aortic valve endocarditis 09/2020 -completed full course of abx CAD -Resumed home meds iron deficiency anemia -No acute indication for RBC transfusion -check stool for blood, peripheral smear hypertension , uncontrolled -resumed home meds -avoid arb/aceinh due to acute on ckd3 -adjust hydralazine dose for better control lumbar degenerative disc disease uses a cane /osteoarthritis of the knee status post prosthetic joint replacement -ARU consult hyperlipidemia -chronic Acute on CKD -trial of ivfluids -monitor for urine retention. -repeat serial mp. -if<30ml/hr urine output, check bladder scan . Vital Signs Vital Signs Date Time Temp Pulse Resp B/P (MAP) Pulse Ox O2 Delivery O2 Flow Rate FiO2 05/09/21 10:45 18 119/62 (81) 05/09/21 10:35 78 95 05/09/21 10:34 99.0 Laboratory Data Labs 24H Laboratory Tests 2 05/09/21 10:59: Immature Granulocyte % (Auto) 0.4, Neutrophils (%) (Auto) 82.4H, Lymphocytes (%) (Auto) 6.4L, Monocytes (%) (Auto) 10.5H, Eosinophils (%) (Auto) 0.2, Basophils (%) (Auto) 0.1, Neutrophils # (Auto) 9.5H, Lymphocytes # (Auto) 0.7L, Monocytes # (Auto) 1.2H, Eosinophils # (Auto) 0.0, Basophils # (Auto) 0.0, Nucleated Red B lood Cells % (auto) 0.0, Erythrocyte Sedimentation Rate 127H, Prothrombin Time 15.3H, Prothromb Time International Ratio 1.17, Activated Partial Thromboplast Time 33.9, Anion Gap 5L, Glomerular Filtration Rate 25.4L, Lactic Acid Level 0.8, Calcium Level 8.5L, Total Bilirubin 0.7, Direct Bilirubin 0.2, Aspartate Amino Transf (AST/SGOT) 18, Alanine Aminotransferase (ALT/SGPT) 22, Alkaline Phosphatase 131H, Total Creatine Kinase 127, Creatine Kinase MB < 1.0, Creatine Kinase MB Relative Index 0.79, Troponin I < 0.02, C-Reactive Protein, Quantitative 10.00H, Total Protein 6.8, Albumin 3.0L, Albumin/Globulin Ratio 0.8, Lipase 132 05/09/21 11:48: CBC/BMP Laboratory Tests 05/09/21 10:59 Microbiology Microbiology 05/09/21 Blood Culture, Received Pending Home Medications Scheduled Ascorbic Acid (Vitamin C) 500 Mg Tablet, 1 TAB PO DAILY Aspirin (Ecotrin) 81 Mg Tablet.dr 81 MG PO DAILY Atenolol (Atenolol) 25 Mg Tab, 25 MG PO DAILY Atorvastatin Calcium (Atorvastatin Calcium) 40 Mg Tablet, 40 MG PO QHS Calcitriol (Rocaltrol) 0.25 Mcg Capsule, 0.25 MCG PO DAILY Cyanocobalamin (Vitamin B-12) (Vitamin B-12) 1,000 Mcg Tablet, 1,000 MCG PO DAILY Furosemide (Furosemide) 20 Mg Tablet, 20 MG PO DAILY Gabapentin (Gabapentin) 800 Mg Tab, 800 MG PO BID Hydralazine HCl (Hydralazine HCl) 25 Mg Tablet, 25 MG PO DAILY Multivitamin (Multivitamin) 1 Each Tablet, 1 TAB PO DAILY Scheduled PRN Acetaminophen (Acetaminophen) 500 Mg Tablet, 1,000 MG PO Q6H PRN for PAIN / FEVER Allergies Coded Allergies: Sulfa (Sulfonamide Antibiotics) (Verified Adverse Reaction, Mild, 05/09/21) Per Dr Umana he stated minimal use due to kidneys A-FIB/CHADSVASC A-FIB History Current/History of A-Fib/PAF?: No Current PO Anticoag Therapy: No Age/Risk Factor Scoring CHADSVASC: CHADSVASC Response (Comments) Value Age Risk Factor Age 65-74 years old 1 Gender Risk Factor Male 0 Hx of CHF No 0 Hx of HTN Yes 1 Hx of Stroke/TIA/or VTE No 0 Hx of Diabetes No 0 Hx of Vascular Disease No 0 Total 2 Treatment Treatment ordered: NONE JAVED JOLLY MD May 09, 2021 14:12
[2021-05-09 20:17] LABS: FERRITIN 179 NG/ML (26-388); IRON (FE) 16 UG/DL (65-175); PERCENT SATURATION 6.9 % (19.7-50.0); TOTAL IRON BINDING CAPACITY 233 UG/DL (250-450)
[2021-05-09] MEDS: **hydrALAZINE HCL** 25 MG TAB PO SCH (20:59)
[2021-05-09 21:18] VITALS: BP 136/70
[2021-05-09] MEDS: MORPHINE 15 MG SA TAB PO SCH (21:26)
[2021-05-09] MEDS: ATORVASTATIN 20 MG TAB PO SCH (21:28)
[2021-05-09] MEDS: ACETAMINOPHEN 500 MG TAB PO SCH (21:28)
[2021-05-09] MEDS: cefTRIAXone SOD 2 GM in D5W MINI-BAG PLUS 50 ML IV SCH (23:44)
[2021-05-10] MEDS: VANCOMYCIN HCL 1,000 MG, VIAL MATE ADAPTER 1 EACH in NS 250 ML IV SCH (05:46)
[2021-05-10 06:29] VITALS: BP 134/69
[2021-05-10 08:14] LABS: BASO % 0.2 % (0.0-1.0); EOS # 0.3 10^3/uL (0.0-0.5); HEMATOCRIT 25.7 % (42.0-52.0); HEMOGLOBIN 8.2 g/dl (13.5-17.5); LYMPH # 0.9 10^3/uL (1.5-5.0); LYMPH % 10.8 % (24.0-44.0); MEAN CORPUSCULAR HEMOGLOBIN 31.7 pg (27.0-33.0); MEAN CORPUSCULAR HGB CONC 31.9 g/dl (32.0-36.5); MEAN CORPUSCULAR VOLUME 99.2 fl (80.0-96.0); MONO # 0.7 10^3/uL (0.0-0.8); MONO % 8.2 % (2.0-8.0); NEUTROPHILS # 6.5 10^3/uL (1.5-8.5); NEUTROPHILS % 77.3 % (36.0-66.0); PLATELET COUNT, AUTOMATED 143 10^3/uL (150-450); RED BLOOD COUNT 2.59 10^6/uL (4.30-6.10); WHITE BLOOD COUNT 8.3 10^3/uL (4.0-10.0)
[2021-05-10 08:40] LABS: CALCIUM LEVEL 8.3 MG/DL (8.8-10.2); CREATININE FOR GFR 2.03 MG/DL (0.70-1.30); GLOMERULAR FILTRATION RATE 34.3 (>42); POTASSIUM SERUM 4.1 MEQ/L (3.5-5.1)
[2021-05-10] MEDS: ACETAMINOPHEN 500 MG TAB PO SCH ×3 (08:53→20:04)
[2021-05-10] MEDS: ASCORBIC ACID 500 MG TAB PO SCH (08:53)
[2021-05-10] MEDS: MORPHINE 15 MG SA TAB PO SCH ×2 (08:53→20:04)
[2021-05-10] MEDS: CYANOCOBALAMIN 500 MCG TAB PO SCH (08:54)
[2021-05-10] MEDS: GABAPENTIN 300 MG CAP PO SCH ×2 (08:54→20:03)
[2021-05-10] MEDS: ASPIRIN 81MG ENTERIC TABLET PO SCH (08:54)
[2021-05-10] MEDS: CALCITRIOL 0.25 MCG CAP (S0169) PO SCH (08:54)
[2021-05-10] MEDS: atenoloL 25 MG TAB PO SCH (08:55)
[2021-05-10] MEDS: FUROSEMIDE 20 MG TAB PO SCH (08:55)
[2021-05-10] MEDS: **hydrALAZINE HCL** 25 MG TAB PO SCH (08:58)
[2021-05-10 14:00] VITALS: BP 138/74
--- NOTE | 2021-05-10 16:09 | IPN ---
PROGRESS NOTE DATE: 05/10/2021 SUBJECTIVE: The patient has been afebrile overnight. He complains of 4/10 pain when he is in bed and ambulates and worsens he tries to get up. He has not been out of bed today. He was afebrile overnight. Aspirate done yesterday of the right knee sent for analysis with gram stain showing no organisms seen but many WBCs. OBJECTIVE: PHYSICAL EXAMINATION: VITAL SIGNS: Temperature 99, pulse 81, respiratory rate 16, blood pressure 134/70, 93% on room air. GENERAL APPEARANCE: The patient is sitting at 90 degree elevation, awake, alert, oriented to himself, in no distress. LUNGS: Clear to auscultation. No rales, rhonchi or wheezes. HEART: S1, S2, sinus rhythm. ABDOMEN: Soft, nontender, nondistended. Positive bowel sounds. EXTREMITIES: The patient has postop right knee with healed surgical incisions. He has some edema of the right knee and significant erythema noted on the anterior harmon. LABORATORY DATA: Reviewed. IMAGING STUDIES: Reviewed. MICROBIOLOGY: Reviewed. ASSESSMENT AND PLAN: This is a 76-year-old male with a history of prosthetic right knee infection, diagnosed September 2020 with MSSA, complicated by aortic endocarditis and completed 8 weeks of IV Nafcillin. Underwent incision and drainage with synovectomy and had explantation of the prosthesis December 10, 2020 with subsequent 8 weeks of Nafcillin, Rifampin, Cephazolin. The patient was brought to the O.R. April 09 for reimplantation with negative frozen section and completed 10 days of Bactrim. He presented to the Emergency Room with a one-day history of right knee swelling, redness, inability to ambulate and severe pain. Active issues are as follows: 1. Recurrent right knee prosthetic infection - status post reimplantation in a two set procedure with negative frozen biopsies and completed 10 days of Bactrim as an outpatient. Synovial fluid has been aspirated yesterday, awaiting culture results. Per Infectious Disease, continue with Vancomycin and Ceftriaxone for now. He is on twice daily M.S. Contin and M.S.I.R. 15 mg q. 4 hourly for severe pain. He is continued all his other home medications. Orthopedic Surgeon, Dr. Hernández has been consulted for management of recurrent infection of the right prosthetic knee. 2. Hypertension controlled on Hydralazine, Lasix and Atenolol. 3. Dyslipidemia on chronic Lipitor. 4. Neuropathy on chronic Gabapentin. 5. Chronic kidney disease stage 3 at baseline creatinine. 6. Anemia of chronic disease no acute indication for RBC transfusion. May benefit from Venofer.Obtain a stool Hemoccult stool and peripheral blood smear tor/o myelodysplastic syndrome. MTDD
[2021-05-10] MEDS: cefTRIAXone SOD 2 GM in D5W MINI-BAG PLUS 50 ML IV SCH (17:07)
--- NOTE | 2021-05-10 18:41 | IPNPDOC ---
Text Note Date of Service The patient was seen on 05/10/21. NOTE Post admission day 1 query recurrent right knee periprosthetic infection, ap proximately 4 weeks status post revision right total knee stage II Patient seen this morning: Patient is doing quite well this morning. Denies any constitutional symptoms. Right knee still painful but he is able to move it a little bit more. He has not been up to move with physical therapy but this should be occurring later this afternoon. The swelling appears to have gone down overnight. The chronic venous stasis dermatitis remains unchanged. There is still some calor to the knee. Overall the patient appears less fatigued, today. Initial Gram stain is negative. The white count has also normalized and the blood cultures are both negative. Patient has been reportedly afebrile. We will continue to follow culture results to determine if a surgical washout is necessary. Painful exacerbation related to activity versus recurrent infection. VS,Fishbone, I+O VS, Fishbone, I+O Laboratory Tests 05/10/21 07:52 Vital Signs Date Time Temp Pulse Resp B/P (MAP) Pulse Ox O2 Delivery O2 Flow Rate FiO2 05/10/21 14:45 16 05/10/21 14:00 98.9 88 138/74 (95) 96 05/09/21 21:18 Room Air I&O- Last 24 Hours up to 6 AM 05/10/21 06:00 Intake Total 1740 ml Output Total 250 ml Balance 1490 ml STEPHEN TILLMAN MD May 10, 2021 18:41
[2021-05-10] MEDS: ATORVASTATIN 20 MG TAB PO SCH (20:03)
[2021-05-10 22:00] VITALS: BP 126/59
[2021-05-11 05:36] VITALS: BP 126/58
[2021-05-11 05:41] LABS: BASO % 0.1 % (0.0-1.0); EOS # 0.4 10^3/uL (0.0-0.5); EOS % 5.1 % (0.0-3.0); HEMATOCRIT 25.7 % (42.0-52.0); HEMOGLOBIN 8.1 g/dl (13.5-17.5); MEAN CORPUSCULAR HEMOGLOBIN 31.5 pg (27.0-33.0); MEAN CORPUSCULAR HGB CONC 31.5 g/dl (32.0-36.5); MONO # 0.7 10^3/uL (0.0-0.8); MONO % 9.5 % (2.0-8.0); NEUTROPHILS # 5.3 10^3/uL (1.5-8.5); NEUTROPHILS % 71.8 % (36.0-66.0); PLATELET COUNT, AUTOMATED 151 10^3/uL (150-450); RED BLOOD COUNT 2.57 10^6/uL (4.30-6.10); WHITE BLOOD COUNT 7.4 10^3/uL (4.0-10.0)
[2021-05-11 05:58] LABS: CALCIUM LEVEL 8.5 MG/DL (8.8-10.2); CREATININE FOR GFR 2.2 MG/DL (0.70-1.30); GLOMERULAR FILTRATION RATE 31.3 (>42); POTASSIUM SERUM 4.1 MEQ/L (3.5-5.1)
[2021-05-11] MEDS: VANCOMYCIN HCL 1,000 MG, VIAL MATE ADAPTER 1 EACH in NS 250 ML IV SCH (05:58)
[2021-05-11] MEDS: GABAPENTIN 300 MG CAP PO SCH ×2 (09:07→20:03)
[2021-05-11] MEDS: ASCORBIC ACID 500 MG TAB PO SCH (09:08)
[2021-05-11] MEDS: FUROSEMIDE 20 MG TAB PO SCH (09:08)
[2021-05-11] MEDS: atenoloL 25 MG TAB PO SCH (09:08)
[2021-05-11] MEDS: **hydrALAZINE HCL** 25 MG TAB PO SCH (09:08)
[2021-05-11] MEDS: CYANOCOBALAMIN 500 MCG TAB PO SCH (09:08)
[2021-05-11] MEDS: MORPHINE 15 MG SA TAB PO SCH (09:09)
[2021-05-11] MEDS: ACETAMINOPHEN 500 MG TAB PO SCH ×3 (09:09→20:03)
[2021-05-11] MEDS: CALCITRIOL 0.25 MCG CAP (S0169) PO SCH (09:09)
[2021-05-11] MEDS: ASPIRIN 81MG ENTERIC TABLET PO SCH (09:09)
[2021-05-11] MEDS ORDERED: MORPHINE 15 MG SA TAB PO ONE (12:00)
--- NOTE | 2021-05-11 12:04 | IPNPDOC ---
Date Seen The patient was seen on 05/11/21. Progress Note SUBJECTIVE: 7/10 pain on current pain regimen, worse when he tries to move the right leg. no f/c. cx: mssa. OBJECTIVE: PHYSICAL EXAMINATION: VITAL SIGNS: see below GENERAL APPEARANCE: no distress aaox 3 LUNGS: Clear to auscultation. AEBE HEART: S1, S2, sinus rhythm.no tachycardic ABDOMEN: Soft, nontender, nondistended. Positive bowel sounds. EXTREMITIES: The patient has postop right knee with healed surgical incisions. He has somedecreased edema of the right knee and decreased erythema noted on the anterior harmon. no induration or crepitus LABORATORY DATA: Reviewed. IMAGING STUDIES: Reviewed. MICROBIOLOGY: Reviewed. ASSESSMENT AND PLAN: This is a 76-year-old male with a history of prosthetic right knee infection, diagnosed September 2020 with MSSA, complicated by aortic endocarditis and completed 8 weeks of IV Nafcillin. Underwent incision and drainage with synovectomy and had explantation of the prosthesis December 10, 2020 with subsequent 8 weeks of Nafcillin, Rifampin, Cephazolin. The patient was brought to the O.R. April 09 for reimplantation with negative frozen section and completed 10 days of Bactrim. He presented to the Emergency Room with a one-day history of right knee swelling, redness, inability to ambulate and severe pain. Active issues are as follows: 1. Recurrent right knee prosthetic infection -cx: MSSA 2. Hypertension 3. Dyslipidemia 4. Neuropathy 5. Chronic kidney disease stage 3 at baseline creatinine. 6. Anemia of chronic disease PLAN: mssa on culture. defer to Dr. Umana re: changes in abx. PICC line for outpt abx. awaiting stool for blood. asx anemia. will transfuse and may need to scope if heme positive stool. vitamin c and iron. venofer. VS, I&O, 24H, Fishbone Vital Signs/I&O Vital Signs Date Time Temp Pulse Resp B/P (MAP) Pulse Ox O2 Delivery O2 Flow Rate FiO2 05/11/21 09:09 16 05/11/21 09:08 126/58 05/11/21 09:08 76 05/11/21 05:36 97.8 92 Room Air I&O- Last 24 Hours up to 6 AM 05/11/21 06:00 Intake Total 1270 ml Output Total 2250 ml Balance -980 ml Laboratory Data 24H LABS Laboratory Tests 2 05/11/21 05:11: Immature Granulocyte % (Auto) 0.5, Neutrophils (%) (Auto) 71.8H, Lymphocytes (%) (Auto) 13.0L, Monocytes (%) (Auto) 9.5H, Eosinophils (%) (Auto) 5.1H, Basophils (%) (Auto) 0.1, Neutrophils # (Auto) 5.3, Lymphocytes # (Auto) 1.0L, Monocytes # (Auto) 0.7, Eosinophils # (Auto) 0.4, Basophils # (Auto) 0.0, Nucleated Red Blood Cells % (auto) 0.0, Anion Gap 5L, Glomerular Filtration Rate 31.3L, Calcium Level 8.5L, Vancomycin Level Trough 15.1 CBC/BMP Laboratory Tests 05/11/21 05:11 Microbiology Microbiology 05/09/21 Gram Stain - Final, Complete 05/09/21 Body Fluid Culture - Final, Complete Staphylococcus Aureus 05/09/21 Anaerobic Culture - Final, Complete 05/09/21 Blood Culture - Preliminary, Resulted No growth after 24 hours . All specim... 05/09/21 Blood Culture - Preliminary, Resulted No growth after 24 hours . All specim... JAVED JOLLY MD May 11, 2021 12:04
[2021-05-11 14:00] VITALS: BP 123/57
[2021-05-11] MEDS: cefTRIAXone SOD 2 GM in D5W MINI-BAG PLUS 50 ML IV SCH (17:37)
[2021-05-11 20:00] VITALS: BP 121/57
[2021-05-11] MEDS: MORPHINE 30 MG SA TAB PO SCH (20:03)
[2021-05-11] MEDS: ATORVASTATIN 20 MG TAB PO SCH (20:03)
[2021-05-11 22:00] VITALS: BP 121/57
[2021-05-12] MEDS: VANCOMYCIN HCL 1,000 MG, VIAL MATE ADAPTER 1 EACH in NS 250 ML IV SCH (05:04)
[2021-05-12 06:04] VITALS: BP 102/56
[2021-05-12 08:46] LABS: BASO % 0.3 % (0.0-1.0); EOS # 0.7 10^3/uL (0.0-0.5); EOS % 8.5 % (0.0-3.0); HEMATOCRIT 25.2 % (42.0-52.0); LYMPH % 12.4 % (24.0-44.0); MEAN CORPUSCULAR HEMOGLOBIN 31.9 pg (27.0-33.0); MEAN CORPUSCULAR HGB CONC 31.7 g/dl (32.0-36.5); MEAN CORPUSCULAR VOLUME 100.4 fl (80.0-96.0); MONO # 0.7 10^3/uL (0.0-0.8); NEUTROPHILS # 5.4 10^3/uL (1.5-8.5); NEUTROPHILS % 69.5 % (36.0-66.0); PLATELET COUNT, AUTOMATED 159 10^3/uL (150-450); RED BLOOD COUNT 2.51 10^6/uL (4.30-6.10); WHITE BLOOD COUNT 7.8 10^3/uL (4.0-10.0)
[2021-05-12 09:12] LABS: CALCIUM LEVEL 8.7 MG/DL (8.8-10.2); CREATININE FOR GFR 1.8 MG/DL (0.70-1.30); GLOMERULAR FILTRATION RATE 39.5 (>42); POTASSIUM SERUM 3.8 MEQ/L (3.5-5.1)
--- NOTE | 2021-05-12 09:20 | IPNPDOC ---
Text Note Date of Service The patient was seen on 05/12/21. NOTE PAD 4: Infected Revision Right total knee arthroplasty Culture results show few S Aureus MSSA Called patient this morning to discuss the positive results of the aspiration of his knee. Discussed with the patient that irrigation and debridement would be planned for tomorrow afternoon with a liner change. Subsequent antibiotic therapy would follow. Patient is in understanding. Or has been contacted for booking. We will consent the patient either later today or early tomorrow for procedure. Updated plan with Hospitalist and Infectious disease services. Plan for I&D washout Right total knee with liner change 05/13/2021 and antibiotic suppression, thereafter under the direction of infectious disease. VS,Fishbone, I+O VS, Fishbone, I+O Laboratory Tests 05/12/21 08:21 Vital Signs Date Time Temp Pulse Resp B/P (MAP) Pulse Ox O2 Delivery O2 Flow Rate FiO2 05/12/21 06:04 98.2 68 18 102/56 (71) 93 Room Air I&O- Last 24 Hours up to 6 AM 05/12/21 05:59 Intake Total 1390 ml Output Total 850 ml Balance 540 ml STEPHEN TILLMAN MD May 12, 2021 09:20
[2021-05-12] MEDS: ASCORBIC ACID 500 MG TAB PO SCH (09:39)
[2021-05-12] MEDS: ACETAMINOPHEN 500 MG TAB PO SCH ×3 (09:41→20:12)
[2021-05-12] MEDS: **hydrALAZINE HCL** 25 MG TAB PO SCH (09:45)
[2021-05-12] MEDS: GABAPENTIN 300 MG CAP PO SCH ×2 (09:45→20:12)
[2021-05-12] MEDS: atenoloL 25 MG TAB PO SCH (09:45)
[2021-05-12] MEDS: CYANOCOBALAMIN 500 MCG TAB PO SCH (09:46)
[2021-05-12] MEDS: ASPIRIN 81MG ENTERIC TABLET PO SCH (09:46)
[2021-05-12] MEDS: FUROSEMIDE 20 MG TAB PO SCH (09:47)
[2021-05-12] MEDS: MORPHINE 30 MG SA TAB PO SCH ×2 (09:49→20:12)
[2021-05-12] MEDS: CALCITRIOL 0.25 MCG CAP (S0169) PO SCH (09:49)
--- NOTE | 2021-05-12 11:16 | HPE ---
HISTORY AND PHYSICAL DATE OF ADMISSION: 05/09/2021 CHIEF COMPLAINT: Right knee pain and swelling. HISTORY OF PRESENT ILLNESS: This is a 76-year-old male with a history of a prosthetic right knee infection September, with MSSA and aortic valve endocarditis who completed 8 weeks of intravenous nafcillin and synovectomy with incision and drainage by orthopedic surgery. Patient then had explantation of the prosthesis December 10, 2020 with failed one-step procedure with drainage and 8 weeks of nafcillin and rifampin, and had another 8 week course in January of nafcillin, cefazolin and rifampin. Patient had reimplantation of the prosthesis with perioperative intravenous vancomycin March, and was discharged April 11, 2021. Blood cultures were negative at that time. Patient comes in by ambulance today due to acute onset of right knee pain and swelling that started yesterday, unable to ambulate and walk despite using his walker. Patient denies any fever or chills at home. He took some tramadol without any relief. In the Emergency Room patient was found to have erythema along the anterior leg with joint swelling of the right knee, white count was elevated at 8.5, he was afebrile at 99 with a sedimentation rate of 127, CRP of 10. Hospitalist was asked to admit the patient for recurrent post-op right knee infection. PAST MEDICAL HISTORY: 1. CAD. 2. Iron deficiency anemia. 3. 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 4. Aortic valve endocarditis with Staph aureus, MSSA September,. 5. Debridement synovectomy of the right knee prosthesis with explantation Nov, 2020; reimplantation procedure March,. 6. Hypertension. 7. Degenerative disc disease. 8. Osteoarthritis. 9. Hyperlipidemia. PAST SURGICAL HISTORY: 1. Right knee replacement February,. 2. Explantation of prosthesis Nov, 2020. 3. Left knee replacement May,. 4. Lumbar back surgery 2019. 5. Cervical surgery 2012. 6. Explantation December 10, 2020 of the failed right prosthesis. 7. Reimplantation of prosthesis 03/2021 of the right knee. ALLERGIES: No known drug allergies. FAMILY HISTORY: Noncontributory due to advanced age. SOCIAL HISTORY: No alcohol or recreational drug use. 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 REVIEW OF SYSTEMS: Per HPI a 12 point system otherwise negative. PHYSICAL EXAMINATION: Vital signs: Temperature 99, pulse 78, respiratory rate 18, blood pressure 119/62, 95% on room air. General: Patient is awake, alert, oriented to person, place and time, answering questions appropriately. Neck: No JVD, thyromegaly or cervical lymphadenopathy. Lungs: Clear to auscultation, no wheezes, rhonchi or rales. Heart: S1 and S2, 2/6 systolic ejection murmur at the apex radiating to the carotids. Back: No kyphoscoliosis. Abdomen: Soft, nontender, nondistended, positive bowel sounds. Extremities: Right knee: Well healed scar, effusion noted, erythema noted along the anterior leg, no purulent drainage, no open lesions. LABORATORY DATA: White count 11.5, hemoglobin 9.2, hematocrit 28.9, platelet count 168. Sodium 140, potassium 4.2, chloride 109, bicarb 26, BUN 2.64, glucose 102. Lactic acid 0.8, calcium 8.5, total bilirubin 0.7, direct bilirubin 0.2, AST 18, ALT 22, alkaline phosphatase 131. Total CK 127. Troponin less than 0.02. CRP of 10. Blood cultures are pending. Coronavirus-19: Negative. IMAGING STUDIES: Knee x-ray: Soft tissue swelling of the right knee. Replacement appears to be intact and stable. Suspected effusion. Chronic stable changes. Vascular ultrasound 05/09/2021: No evidence of DVT. Chest x-ray: No acute cardiopulmonary disease. ASSESSMENT: This is a 76-year-old male with a history of MSSA infection of the right knee status post incision and drainage, synovectomy, explantation of the prosthesis, reimplantation, MSSA endocarditis treated fully presents again with acute onset of right knee pain with swelling. IMPRESSIONS/PLAN: 1. Right knee prosthetic joint infection with MSSA: Status post reimplantation. Orthopedic surgeon has been consulted. Infectious disease specialist Dr. Arley Umana has been consulted. No empiric antibiotics despite elevated white count, sedimentation rate and CRP until synovial fluid has been removed. Ortho to decide on the timing of arthrocentesis of the right knee to obtain fluid sample if recommended by infectious disease. Pain medications as needed. Antiemetics. 2. Acute on chronic renal failure. Baseline creatinine is 1.76, current creatinine is 2.64: I.V. fluid hydration for now. Avoid nephrotoxins, NSAIDs, YING inhibitors, ARBs and monitor I's and O's, daily weights and repeat basic metabolic panel. 3. Dyslipidemia: Continue on atorvastatin. 4. Anemia due to chronic disease: Avoid NSAIDs. Check hemoccult stool. Check peripheral blood smear. No acute indication for RBC transfusion. We will continue to monitor. 5. Aortic valve endocarditis with MSSA: Completed antibiotic treatment. Follows with Dr. Umana. 6. History of CAD: No acute ischemic complaints. MTDD
--- NOTE | 2021-05-12 12:04 | IPNPDOC ---
Date Seen The patient was seen on 05/12/21. Progress Note ADDENDUM TO PROGRESS NOTE: PER ORTHO, POT WILL GO TO THE OR FOR WASHOUT OF RIGHT KNEE 05/13/21. PLAN: DC ASA NPO AFTER MIDNIGHT. VS, I&O, 24H, Fishbone Vital Signs/I&O Vital Signs Date Time Temp Pulse Resp B/P (MAP) Pulse Ox O2 Delivery O2 Flow Rate FiO2 05/12/21 09:49 15 122/58 Room Air 05/12/21 06:04 98.2 68 93 l I&O- Last 24 Hours up to 6 AM 05/12/21 06:00 Intake Total 1710 ml Output Total 1100 ml Balance 610 ml Laboratory Data 24H LABS Laboratory Tests 2 05/12/21 08:21: Immature Granulocyte % (Auto) 0.3, Neutrophils (%) (Auto) 69.5H, Lymphocytes (%) (Auto) 12.4L, Monocytes (%) (Auto) 9.0H, Eosinophils (%) (Auto) 8.5H, Basophils (%) (Auto) 0.3, Neutrophils # (Auto) 5.4, Lymphocytes # (Auto) 1.0L, Monocytes # (Auto) 0.7, Eosinophils # (Auto) 0.7H, Basophils # (Auto) 0.0, Nucleated Red Blood Cells % (auto) 0.0, Anion Gap 8, Glomerular Filtration Rate 39.5L, Calcium Level 8.7L CBC/BMP Laboratory Tests 05/12/21 08:21 Microbiology Microbiology 05/09/21 Gram Stain - Final, Complete 05/09/21 Body Fluid Culture - Final, Complete Staphylococcus Aureus 05/09/21 Anaerobic Culture - Final, Complete 05/09/21 Blood Culture - Preliminary, Resulted No Growth after 48 hours. All Specime... 05/09/21 Blood Culture - Preliminary, Resulted No Growth after 72 hours. All specime... JAVED JOLLY MD May 12, 2021 12:04
--- NOTE | 2021-05-12 13:07 | IPN ---
PROGRESS NOTE DATE: 05/12/2021 SUBJECTIVE: Patient's pain is controlled at the moment. His morphine has been increased to 30 mg twice a day long acting. He has had no fever or chills. There has been decreased swelling and erythema of the right leg. Patient denies any chills. OBJECTIVE: Vital signs: Temperature 98.2, pulse 68, respiratory rate 16, blood pressure 122/58, 93% on room air. General: Awake, alert, oriented to person, place and time, answering questions appropriately. Lungs: Clear to auscultation, no wheezes, rhonchi or rales. Heart: S1 and S2 sinus rhythm. Abdomen: Soft, nontender, nondistended, positive bowel sounds. Extremities: Right lower extremity has decreasing edema. The patella has well healed surgical scars. No erythema of the right anterior harmon, improved from admission. LABORATORY DATA/IMAGING STUDIES/MICROBIOLOGY: Have been reviewed and notable for a hemoglobin of 8 from admission hemoglobin of 9.2. Patient denies any bright red blood per rectum, melena black tarry stools. No stool for blood noted. ASSESSMENT: This is a 76-year-old male with history of recurrent right knee prosthetic infection, chronic kidney disease stage 3, hypertension, dyslipidemia, chronic neuropathy and anemia of chronic disease admitted due to acute onset of pain, swelling of the right knee, presented a day after symptoms, was found to have recurrent right prosthetic knee MSSA infection. ACTIVE ISSUES/PLAN: As follows: 1. Recurrent right knee prosthetic infection, culture showing MSSA: Currently on I.V. vanco and ceftriaxone, managed by Dr. Arley Umana infectious disease specialist. Patient is afebrile with normal white count. Defer to Dr. Umana regarding PICC line and choice of antibiotic as outpatient. ARU has been consulted. Activity as tolerated. Elevate the lower extremity while supine. Pain is controlled currently with MS Contin 30 twice a day and as needed morphine every 4 hours with MS IR 15 mg. 2. Hypertension: Controlled, systolic pressure 102-122, on chronic Lasix and atenolol. 3. Chronic neuropathy: On Neurontin 300 twice a day. 4. Chronic kidney disease: On chronic calcitriol, baseline creatinine 5. Anemia: Patient is not exhibiting any stool bleed. Still awaiting stool sample. Patient is on chronic aspirin and vitamin C. we will monitor for worsening anemia. MTDD
[2021-05-12 14:40] VITALS: BP 103/51
[2021-05-12] MEDS ORDERED: LIDOCAINE 1% MDV 20ML VIAL As Ordered ONE (15:45)
--- NOTE | 2021-05-12 18:03 | REP ---
PROCEDURE NAME: PICC LINE INSERTION W/SITERITE CLINICAL INFORMATION: prosthetic knee infection. COMPARISON: None. PROCEDURE DESCRIPTION: The procedure was performed by GENNY Ellsworht, under the direct supervision of Dr. Prabhakar. The risks and benefits of the procedure were explained to the patient and an informed consent was obtained both verbally and written. Directly prior to the start of the procedure a formal time-out was completed in the procedure room. The right brachial vein was localized using ultrasound guidance. The skin was prepped and draped in sterile fashion. Eight mL of 1% lidocaine 10 mg/mL was used as a local anesthetic. Using ultrasound guidance the right brachial vein was cannulated, and a 0.018 guidewire was inserted and advanced to the level of SVC using fluoroscopic guidance. The needle was removed and a 4.5 Upper Sorbian dilator and peel-away sheath was inserted over the guidewire. A 4.5 Upper Sorbian catheter was cut to a length of 44 cm. The dilator was removed and the catheter was inserted over the guidewire with the tip ending at the level of the SVC. The peel-away sheath was removed and the catheter was flushed with heparinized saline as per hospital protocol. The catheter was affixed to the skin and a sterile dressing was applied. The patient tolerated the procedure well and there were no immediate complications. CONCLUSION: PICC line insertion into the right brachial vein. 0.3 minutes of fluoroscopy time was utilized for this procedure. Some fluoroscopic images are performed with last image hold technology. These images require no additional radiation. <Electronically signed by Carito Tomlinson > 05/12/21 1711 <Electronically signed by Juan Carlos Prabhakar > 05/12/21 1800
[2021-05-12] MEDS: ceFAZolin SOD 2 GM in IV 1 EA IV SCH ×2 (18:18→23:50)
[2021-05-12] MEDS: SODIUM CHLORIDE 0.9% INJ 10 ML SYR IV PRN (19:45)
--- NOTE | 2021-05-12 20:06 | IPN ---
INFECTIOUS DISEASE PROGRESS NOTE DATE: 05/12/2021 SUBJECTIVE: Mr. Nathan is doing fairly well. He states the pain is slightly better. He is going to the OR tomorrow for I and D of the knee and synovectomy. He has had no fever or chills. Aspiration of the knee done on 05/09 was positive for MSSA aerobic culture and aerobic culture was negative. Blood cultures x2 sets were negative. Labs today: White count 7.8, hemoglobin 8, hematocrit 25.2, platelets 159,000, 69% neutrophils, 12% lymphocytes, 9% monocytes. Sodium 141, potassium 3.8, chloride 109, bicarb 24, BUN 34, creatinine 1.8 down from 2.6. GFR 39. Glucose 103. Calcium 8.7. CRP 10.0. PHYSICAL EXAMINATION: VITAL SIGNS: Temperature 97.9, pulse 63, respirations 18, blood pressure 103/51, O2 sat 98% on room air. T-max was 100.4 on 05/10. HEART: Normal S1, S2. Systolic ejection murmur unchanged. LUNGS: Clear. No wheezes, rales or rhonchi. ABDOMEN: Soft, nontender. No hepatosplenomegaly. EXTREMITIES: Left leg with no cyanosis, clubbing or edema. Right leg with +1 edema, erythema below the knee; has not decreased. There are also some scabs along the knee incision superiorly and inferiorly. There is another area of erythema at the superior aspect of the knee. He has difficulty with knee flexion. He has pain with movement. IMPRESSION: 1. Recurrent prosthetic joint infection with culture positive for MSSA: Failed re-do surgery with recurrent infection. The patient will be going to the OR tomorrow for synovectomy and debridement. He will be treated with another 6 to 8 week course of I.V. antibiotics followed by lifelong chronic suppressive therapy. 2. Anemia of chronic disease. 3. Chronic kidney disease: Creatinine has improved since admission. PLAN: Discontinue I.V. Vancomycin and Ceftriaxone. Switch to Cefazolin 2 grams every 8 hours I.V. plus Rifampin 300 mg p.o. b.i.d. to help with the biofilm. The plan was scheduled for today. Repeat CBC, ESR, CRP tomorrow.
[2021-05-12] MEDS: ATORVASTATIN 20 MG TAB PO SCH (20:11)
[2021-05-12] MEDS: rifAMPin 150MG CAPSULE PO SCH (20:11)
[2021-05-12 22:00] VITALS: BP 130/59
[2021-05-13] MEDS: SODIUM CHLORIDE 0.9% INJ 10 ML SYR IV SCH ×2 (00:33→20:12)
[2021-05-13 06:00] VITALS: BP 129/59
[2021-05-13 06:03] LABS: BASO % 0.2 % (0.0-1.0); EOS # 0.8 10^3/uL (0.0-0.5); HEMATOCRIT 28.8 % (42.0-52.0); HEMOGLOBIN 9.1 g/dl (13.5-17.5); LYMPH # 0.8 10^3/uL (1.5-5.0); MEAN CORPUSCULAR HEMOGLOBIN 31.8 pg (27.0-33.0); MEAN CORPUSCULAR HGB CONC 31.6 g/dl (32.0-36.5); MEAN CORPUSCULAR VOLUME 100.7 fl (80.0-96.0); MONO # 0.5 10^3/uL (0.0-0.8); MONO % 8.3 % (2.0-8.0); NEUTROPHILS # 4.1 10^3/uL (1.5-8.5); NEUTROPHILS % 66.2 % (36.0-66.0); PLATELET COUNT, AUTOMATED 194 10^3/uL (150-450); RED BLOOD COUNT 2.86 10^6/uL (4.30-6.10); WHITE BLOOD COUNT 6.2 10^3/uL (4.0-10.0)
[2021-05-13 06:27] LABS: ERYTHROCYTE SEDIMENTATION RATE 128 mm/hr (0-20)
[2021-05-13 06:43] LABS: C REACTIVE PROTEIN QUANTITATIV 23.6 MG/DL (0.00-0.30); CALCIUM LEVEL 9.1 MG/DL (8.8-10.2); CREATININE FOR GFR 1.87 MG/DL (0.70-1.30); GLOMERULAR FILTRATION RATE 37.8 (>42); POTASSIUM SERUM 4.1 MEQ/L (3.5-5.1)
[2021-05-13] MEDS: MORPHINE 30 MG SA TAB PO SCH ×2 (09:00→21:50)
[2021-05-13] MEDS: ceFAZolin SOD 2 GM in IV 1 EA IV SCH (09:11)
[2021-05-13] MEDS: **hydrALAZINE HCL** 25 MG TAB PO SCH (09:16)
[2021-05-13] MEDS: FUROSEMIDE 20 MG TAB PO SCH (09:18)
[2021-05-13] MEDS: GABAPENTIN 300 MG CAP PO SCH ×2 (09:19→21:50)
[2021-05-13] MEDS: atenoloL 25 MG TAB PO SCH (09:20)
[2021-05-13] MEDS: rifAMPin 150MG CAPSULE PO SCH ×2 (09:20→21:50)
[2021-05-13] MEDS: CALCITRIOL 0.25 MCG CAP (S0169) PO SCH (09:20)
[2021-05-13] MEDS: ACETAMINOPHEN 500 MG TAB PO SCH (09:21)
[2021-05-13] MEDS: ASCORBIC ACID 500 MG TAB PO SCH (09:21)
[2021-05-13] MEDS: CYANOCOBALAMIN 500 MCG TAB PO SCH (09:21)
[2021-05-13] MEDS: SODIUM CHLORIDE 0.9% INJ 10 ML SYR IV PRN (10:49)
--- NOTE | 2021-05-13 11:29 | IPNPDOC ---
Subjective Date Seen The patient was seen on 05/13/21. Subjective Chief Complaint/HPI Mr. 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 Patient was seen this morning. Denies any chest pain or dyspnea. Right knee is still warm, especially noticeable when compared to left knee. Pending surgery by orthopedic surgery today Objective Physical Examination General Exam: Positive: Alert, Cooperative Eye Exam: Negative: Sclera icteric ENT Exam: Positive: Atraumatic Neck Exam: Positive: Supple Chest Exam: Positive: Clear to auscultation; Negative: Rales, Rhonchi, Wheezing Heart Exam: Positive: Rate Normal, Regular Rhythm Abdomen Exam: Positive: Normal bowel sounds, Soft; Negative: Tenderness Extremity Exam: Positive: Other (Right knee swelling and warmth) Neuro Exam: Positive: Normal Speech Psych Exam: Positive: Mental status NL, Mood NL Assessment /Plan Assessment Mr. 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 Orthopedic surgery was consulted. Planning for I&D washout on 05/13/2021. Infectious disease consulted, planning for antibiotics for another 6 to 8 weeks followed by lifelong chronic suppressive therapy. Plan/VTE VTE Prophylaxis Ordered?: Yes Plan 1. Recurrent right knee prosthetic infection with MSSA Orthopedic surgery consulted, recommendations appreciated Plan to go to the OR on 05/13/2021 for I&D Infectious disease consulted, recommendations appreciated Patient will need long-term antibiotics (6 to 8 weeks) followed by suppressive therapy Cefazolin, antibiotic day 5 2. Hypertension Blood pressure appropriately controlled Continue atenolol and hydralazine 3. Chronic neuropathy Continue gabapentin 4. CKD stage 3 Baseline creatinine around 1.8 Close to baseline Continue supportive care 5. Macrocytic anemia Hemoglobin at baseline Continue to monitor 6. DVT prophylaxis SCDs and teds Disposition: Pending orthopedic surgery and physical therapy re-evaluation VS, I&O, 24H, Fishbone Vital Signs/I&O Vital Signs Date Time Temp Pulse Resp B/P (MAP) Pulse Ox O2 Delivery O2 Flow Rate FiO2 05/13/21 09:20 74 122/58 05/13/21 09:00 18 Room Air 05/13/21 06:00 98.8 97 I&O- Last 24 Hours up to 6 AM 05/13/21 06:00 Intake Total 810 ml Output Total 1375 ml Balance -565 ml Laboratory Data 24H LABS Laboratory Tests 2 05/13/21 05:48: Immature Granulocyte % (Auto) 0.3, Neutrophils (%) (Auto) 66.2H, Lymphocytes (%) (Auto) 12.0L, Monocytes (%) (Auto) 8.3H, Eosinophils (%) (Auto) 13.0H, Basophils (%) (Auto) 0.2, Neutrophils # (Auto) 4.1, Lymphocytes # (Auto) 0.8L, Monocytes # (Auto) 0.5, Eosinophils # (Auto) 0.8H, Basophils # (Auto) 0.0, Nucleated Red Blood Cells % (auto) 0.0, Erythrocyte Sedimentation Rate 128H, Anion Gap 7L, Glomerular Filtration Rate 37.8L, Calcium Level 9.1, C-Reactive Protein, Quantitative 23.60H CBC/BMP Laboratory Tests 05/13/21 05:48 Microbiology Microbiology 05/09/21 Gram Stain - Final, Complete 05/09/21 Body Fluid Culture - Final, Complete Staphylococcus Aureus 05/09/21 Anaerobic Culture - Final, Complete 05/09/21 Blood Culture - Preliminary, Resulted No Growth after 72 hours. All specime... 05/09/21 Blood Culture - Preliminary, Resulted No Growth after 72 hours. All specime... ONEYDA SALEH DO May 13, 2021 11:23
[2021-05-13] MEDS ORDERED: ONDANSETRON 4MG/2ML VIAL As Ordered ONE (14:04)
[2021-05-13] MEDS ORDERED: LIDOCAINE 2% 100MG/5ML SDV (FOR ANES.) As Ordered ONE (14:04)
[2021-05-13] MEDS ORDERED: METOCLOPRAMIDE INJ 10MG/2ML VIAL (J2765 PER 1) As Ordered ONE (14:04)
[2021-05-13] MEDS ORDERED: propofoL 200 MG/20 ML VIAL As Ordered ONE (14:04)
[2021-05-13] MEDS ORDERED: fentaNYL 100 MCG/2 ML INJECTION (J3010) As Ordered ONE (14:04)
[2021-05-13] MEDS ORDERED: MIDAZOLAM INJ 2MG/2ML VIAL (J2250 PER 1MG) As Ordered ONE (14:04)
[2021-05-13] MEDS ORDERED: VANCOMYCIN 500MG/10ML VIAL As Ordered ONE (15:11)
[2021-05-13] MEDS ORDERED: VANCOMYCIN 1000MG/20ML VIAL As Ordered ONE (15:12)
[2021-05-13] MEDS ORDERED: TRANEXAMIC ACID 100 MG/ML 10ML VIAL As Ordered ONE ×3 (15:30→16:44)
[2021-05-13] MEDS ORDERED: ceFAZolin 1GM VIAL (J0690 PER 500MG) As Ordered ONE (15:50)
[2021-05-13] MEDS ORDERED: ePHEDrine SULFATE 25 MG/5 ML(5MG/ML) SYRINGE As Ordered ONE (17:53)
[2021-05-13] MEDS ORDERED: ONDANSETRON 4MG/2ML VIAL IV PRN ×2 (18:00→19:10)
[2021-05-13] MEDS ORDERED: HYDROMORPHONE HCL 0.5 MG/ 0.5 ML SYRINGE (J1170 PER 1) IV PRN (18:00)
[2021-05-13] MEDS ORDERED: oxyCODONE 5MG TAB PO PRN ×3 (18:00→19:10)
[2021-05-13] MEDS ORDERED: LR 1,000 ML IV SCH ×2 (18:00→19:00)
[2021-05-13] MEDS ORDERED: fentaNYL 100 MCG/2 ML INJECTION (J3010) IV PRN (18:00)
--- NOTE | 2021-05-13 18:20 | ROOPDOC ---
[facility] [place] Report Of Operation Report of Operation DATE OF PROCEDURE: 05/13/21 PREPROCEDURE DIAGNOSES: Infected right total knee arthroplasty prosthesis status post two-stage revision POSTPROCEDURE DIAGNOSES: As above PROCEDURE PERFORMED: Irrigation and debridement of right total knee arthroplasty Excision and revision of incisional scar tissue Liner revision exchange Application of Crystal plus customizable incisional wound VAC > 40 cm x 4 cm SURGEON: David Tillman MD COMMANDING OFFICER [employer]FF[employer] DIVISION: Selvin Almanzar PA-C ANESTHESIA: General anesthetic ESTIMATED BLOOD LOSS: Approximately 300 mL. COMPLICATIONS: No known. REMARKS: Patient has had a recurrent infection of the right total knee arthroplasty prosthesis. Of note the patient does have a foot drop associated with the initial primary procedure down in [place] FINDINGS: Evidence of early infection to the right total knee arthroplasty joint with no evidence of loosening of patellar, femoral or tibial components. Evidence of disruption of the attachment of the insertion of the patellar tendon SPECIMENS REMOVED: X3 Ortho culture PROCEDURE NOTE: [place] triathlon total stabilizer polyethylene component size number 422 mm thickness TS; OsteoSet resorbable mini bead kit with vancomycin powder 1 g The patient received 1 g of IV tranexamic acid prior to incision. After the Ortho cultures were sent the patient received 1 g of Ancef IV. DESCRIPTION OF PROCEDURE: Patient was brought to the operating room after being examined in the recovery room where consent was signed for the irrigation and debridement as well as blood transfusion and all indicated procedures. His right lower extremity was marked. Once in the operating room he was transferred to the operating room table and underwent a general anesthetic. He was appropriately padded in the standard fashion. The right lower extremity underwent a wash with chlorhexidine scrub followed by 2 times alcohol wash followed by hydrogen peroxide wash and then 2 times chlorhexidine sterile swab. He then underwent a standard sterile prep and drape After a surgical safety checklist and pause was performed. An incision was made along the existing incision line with 2 areas of eschar ellipsed out and discarded utilizing a scalpel. The incision was then carried down to the fascial area. There is significant scar tissue. Bleeders were controlled with electrocautery. A Monreal was then used to identify and elevate the soft tissue off the fascia to create the appropriate planes. The scalpel was then used to recreate the medial arthrotomy. Any Prolene suture that was encountered was removed. Fluid from within the knee was sent for Ortho culture. Some tissue from the suprapatellar pouch was sent for throat culture. A Monreal, curettes, and a morataya and other implements were used to mechanically debride the soft tissues. This was back to fresh bleeding soft tissue. All the components were examined and were found to be stable with no evidence of loosening. Attention was turned to the tibial component. This was removed with osteotomes. And the stabilizing pin was removed. An Ortho culture sample from posterior to this and on the tibial tray was sent. Mechanical debridement of the posterior aspect of the joint was carried out using a curette and a morataya. Once the mechan ical debridement was complete and irrigation occurred Approximately 2 L of normal sterile saline was run through the knee utilizing pulse lavage. Once this was completed Betadine was allowed to soak in the wound for approximately 1 to 2 minutes just prior to a dilute mixture of hydrogen peroxide being washed through the knee joint. This is immediately irrigated out with another liter of normal sterile saline. After the thorough irrigation and debridement, a new blue sheet was placed over the existing drape. The 22 mm polyethylene was replaced and exchanged for the liner. This was impacted appropriately and found to be good in a stable relationship through flexion and extension. The central pin was placed to support the post. This was impacted below the flush line. Further irrigation was carried out with Betadine and normal sterile saline solutions. Bleeders were controlled with electrocautery. Of note there was diffuse oozing from the mechanical debridement of the soft tissues. 2 g of tranexamic topical were instilled and allowed to sit for approximately 3 minutes. Another irrigation then occurred. The OsteoSet reabsorbable beads mixed with vancomycin were then instilled out of the way of the articulation of the tibiofemoral joint. These were mini beads. Closure then began with a transosseous type repair through the patient's heterotopic bone which is throughout his quads tendon. A penetrating towel clamp was used to make some transosseous holes in the quads tendon heterotopic bone. Interrupted #1 Prolene sutures were passed through this and this was closed down. The distal end of the wound was then closed. The avulsed patellar tendon was repaired through the sides and this included the medial lateral aspects. This was done with #1 Prolene. Interrupted Prolenes were utilized at the distal end of the arthrotomy and then a running suture was placed for the remainder of the arthrotomy. This was a running locking. The wound was then irrigated with Betadine and normal sterile saline. Interrupted #1 Prolene was used for full-thickness closure of the skin and subcutaneous tissues. This was reinforced with a running locking #1 Prolene suture. Mastisol was then used to help adhere a Prevena incisional VAC this was the customizable size. This was secured with the transparent film. A quarter-sized hole was cut at the distal end and suction was applied for this for the Crystal incisional VAC setting at 125 mmHg continuous. Patient tolerated the procedure well with no known complications and was taken to recovery room in stable condition. I informed the hospitalist looking after him that he had completed his procedure. Patient will be seen by infectious disease in follow-up and will have a PICC line placed. DAVID TILLMAN MD May 13, 2021 18:20
--- NOTE | 2021-05-13 18:34 | REP ---
INDICATION: POST OP IN PACU COMPARISON: 05/09/2021 TECHNIQUE: AP and lateral FINDINGS: The constrained total knee arthroplasty is unchanged in alignment and position. There is no significant change compared to the prior exam. IMPRESSION: No significant change <Electronically signed by Marciano Mac > 05/13/21 [id number]
[2021-05-13 18:40] VITALS: BP 113/77
[2021-05-13 21:00] VITALS: O2SAT 99
[2021-05-13] MEDS ORDERED: NAPROXEN 250 MG TAB PO SCH (21:00)
[2021-05-13] MEDS: DOCUSATE SODIUM 100MG CAPSULE PO SCH (21:00)
[2021-05-13] MEDS: ASPIRIN 81MG ENTERIC TABLET PO SCH (21:50)
[2021-05-13] MEDS: ATORVASTATIN 20 MG TAB PO SCH (21:51)
[2021-05-13 22:00] VITALS: BP 127/54
[2021-05-14] VITALS (13 sets, daily range): BP systolic 106–118; BP diastolic 48–88; O2SAT 99
[2021-05-14] MEDS: ceFAZolin SOD 2 GM in IV 1 EA IV SCH ×2 (00:42→08:42)
[2021-05-14] MEDS: ACETAMINOPHEN TAB 650MG DOSE (2X325MG) PO SCH ×4 (00:42→18:04)
[2021-05-14] MEDS: SODIUM CHLORIDE 0.9% INJ 10 ML SYR IV SCH ×2 (04:57→18:03)
[2021-05-14 06:43] LABS: BASO % 0.4 % (0.0-1.0); EOS # 0.5 10^3/uL (0.0-0.5); EOS % 9.3 % (0.0-3.0); HEMATOCRIT 23.1 % (42.0-52.0); HEMOGLOBIN 7.2 g/dl (13.5-17.5); LYMPH # 0.7 10^3/uL (1.5-5.0); LYMPH % 12.3 % (24.0-44.0); MEAN CORPUSCULAR HEMOGLOBIN 31.9 pg (27.0-33.0); MEAN CORPUSCULAR HGB CONC 31.2 g/dl (32.0-36.5); MEAN CORPUSCULAR VOLUME 102.2 fl (80.0-96.0); MONO # 0.5 10^3/uL (0.0-0.8); MONO % 8.7 % (2.0-8.0); NEUTROPHILS # 3.9 10^3/uL (1.5-8.5); NEUTROPHILS % 68.8 % (36.0-66.0); PLATELET COUNT, AUTOMATED 178 10^3/uL (150-450); RED BLOOD COUNT 2.26 10^6/uL (4.30-6.10); WHITE BLOOD COUNT 5.6 10^3/uL (4.0-10.0)
[2021-05-14 07:15] LABS: CALCIUM LEVEL 8.8 MG/DL (8.8-10.2); CREATININE FOR GFR 2.49 MG/DL (0.70-1.30); GLOMERULAR FILTRATION RATE 27.1 (>42); POTASSIUM SERUM 4.2 MEQ/L (3.5-5.1)
[2021-05-14] MEDS ORDERED: NS 1,000 ML IV SCH (07:20)
--- NOTE | 2021-05-14 07:57 | IPNPDOC ---
Text Note Date of Service The patient was seen on 05/14/21. NOTE Postop day 1 for irrigation and debridement with liner exchange right total knee arthroplasty for infection Patient awake in bed. Denies any significant complaints or concerns. Has been up moving to the bathroom with a walker. No chest pain or shortness of breath Prevena dressing intact. No significant staining of the dressing. X-ray imaging taken in recovery room reviewed. No significant change in the prosthesis. Evidence of the antibiotic eluding beads. This is to the right total knee arthroplasty prosthesis Patient has had the PICC line placed yesterday. No significant range of motion for the right knee at this time. Only about 0 to 30 degrees. Weight-bear as t olerated. Infectious disease team to reevaluate once intraoperative cultures completed. VS,Issacbone, I+O VS, Issacbone, I+O Laboratory Tests 05/14/21 06:26 Vital Signs Date Time Temp Pulse Resp B/P (MAP) Pulse Ox O2 Delivery O2 Flow Rate FiO2 05/14/21 06:00 97.7 79 18 106/84 (91) 100 Nasal Cannula 2.0 I&O- Last 24 Hours up to 6 AM 05/14/21 05:59 Intake Total 2505 ml Output Total 550 ml Balance 1955 ml STEPHEN TILLMAN MD May 14, 2021 07:57
[2021-05-14] MEDS: GABAPENTIN 300 MG CAP PO SCH ×2 (08:42→21:14)
[2021-05-14] MEDS: CYANOCOBALAMIN 500 MCG TAB PO SCH (08:42)
[2021-05-14] MEDS: FUROSEMIDE 20 MG TAB PO SCH (08:42)
[2021-05-14] MEDS: FERROUS SULFATE 325MG TAB PO SCH (08:42)
[2021-05-14] MEDS: DOCUSATE SODIUM 100MG CAPSULE PO SCH ×2 (08:42→21:14)
[2021-05-14] MEDS: ASPIRIN 81MG ENTERIC TABLET PO SCH ×2 (08:43→21:14)
[2021-05-14] MEDS: rifAMPin 150MG CAPSULE PO SCH ×2 (08:43→21:13)
[2021-05-14] MEDS: CALCITRIOL 0.25 MCG CAP (S0169) PO SCH (08:43)
[2021-05-14] MEDS: MORPHINE 30 MG SA TAB PO SCH ×2 (08:43→21:14)
[2021-05-14] MEDS: ASCORBIC ACID 500 MG TAB PO SCH (08:43)
[2021-05-14] MEDS: **hydrALAZINE HCL** 25 MG TAB PO SCH (08:44)
[2021-05-14] MEDS: atenoloL 25 MG TAB PO SCH (08:44)
--- NOTE | 2021-05-14 15:40 | IPNPDOC ---
Subjective Date Seen The patient was seen on 05/14/21. Subjective Chief Complaint/HPI Mr. 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 Yesterday afternoon, patient went to the OR for I&D of infected prosthesis. Surgery went well. Patient was notified this morning that he had been exposed to a staff member that was positive for Covid. Otherwise, denies any chest pain or dyspnea. He also denies any lightheadedness or dizziness. This morning his hemoglobin was low at 7.2. Most likely secondary to surgery. Patient be given 2 units of blood. Objective Physical Examination General Exam: Positive: Alert, Cooperative Eye Exam: Negative: Sclera icteric ENT Exam: Positive: Atraumatic Neck Exam: Positive: Supple Chest Exam: Positive: Clear to auscultation; Negative: Rales, Rhonchi, Wheezing Heart Exam: Positive: Rate Normal, Regular Rhythm Abdomen Exam: Positive: Normal bowel sounds, Soft; Negative: Tenderness Neuro Exam: Positive: Normal Speech Psych Exam: Positive: Mental status NL, Mood NL Assessment /Plan Assessment Mr. 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 Orthopedic surgery was consulted. Orthopedic surgery took patient to the OR for I&D washout on 05/13/2021. Infectious disease consulted, planning for antibiotics for another 6 to 8 weeks followed by lifelong chronic suppressive therapy. Plan/VTE VTE Prophylaxis Ordered?: Yes Plan 1. 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 Hypertension Blood pressure appropriately controlled Continue atenolol and hydralazine 3. Chronic neuropathy Continue gabapentin 4. CKD stage 3 Baseline creatinine around 1.8 Close to baseline Continue supportive care 5. Macrocytic anemia Hemoglobin at baseline Continue to monitor 6. Exposure to Covid Patient exposed to staff member positive for Covid Patient currently on quarantine 7. DVT prophylaxis SCDs and teds Disposition: Pending culture results VS, I&O, 24H, Fishbone Vital Signs/I&O Vital Signs Date Time Temp Pulse Resp B/P (MAP) Pulse Ox O2 Delivery O2 Flow Rate FiO2 05/14/21 15:04 97.8 73 17 106/88 94 Room Air 05/14/21 09:00 2.0 I&O- Last 24 Hours up to 6 AM 05/14/21 06:00 Intake Total 2655 ml Output Total 500 ml Balance 2155 ml Laboratory Data 24H LABS Laboratory Tests 2 05/14/21 06:26: Immature Granulocyte % (Auto) 0.5, Neutrophils (%) (Auto) 68.8H, Lymphocytes (%) (Auto) 12.3L, Monocytes (%) (Auto) 8.7H, Eosinophils (%) (Auto) 9.3H, Basophils (%) (Auto) 0.4, Neutrophils # (Auto) 3.9, Lymphocytes # (Auto) 0.7L, Monocytes # (Auto) 0.5, Eosinophils # (Auto) 0.5, Basophils # (Auto) 0.0, Reticulocyte # (auto) 28.5, Nucleated Red Blood Cells % (auto) 0.0, Percent Reticulocyte Count 1.3, Reticulocyte Hemoglobin Equivalent 26.9, Anion Gap 10, Glomerular Filtration Rate 27.1L, Calcium Level 8.8, Iron Level 16L, Total Iron Binding Capacity 146L, Transferrin % Saturation 11.0L, Ferritin 602H, Lactate Dehydr ogenase 143 CBC/BMP Laboratory Tests 05/14/21 06:26 Microbiology Microbiology 05/13/21 Fungal Smear, Received Pending 05/13/21 Fungal Culture, Received Pending 05/13/21 Gram Stain - Final, Resulted 05/13/21 Wound Culture, Resulted Pending 05/13/21 Anaerobic Culture, Resulted Pending 05/13/21 Fungal Smear, Received Pending 05/13/21 Fungal Culture, Received Pending 05/13/21 Gram Stain - Final, Resulted 05/13/21 Wound Culture, Resulted Pending 05/13/21 Anaerobic Culture, Resulted Pending 05/13/21 Fungal Smear, Received Pending 05/13/21 Fungal Culture, Received Pending 05/13/21 Gram Stain - Final, Resulted 05/13/21 Neisseria gonorrhoeae Culture, Resulted Pending 05/13/21 Gram Stain - Final, Resulted 05/13/21 Wound Culture, Resulted Pending 05/13/21 Anaerobic Culture, Resulted Pending 05/09/21 Gram Stain - Final, Complete 05/09/21 Body Fluid Culture - Final, Complete Staphylococcus Aureus 05/09/21 Anaerobic Culture - Final, Complete 05/09/21 Blood Culture - Final, Complete NO GROWTH AFTER 5 DAYS 05/09/21 Blood Culture - Final, Complete NO GROWTH AFTER 5 DAYS ONEYDA SALEH DO May 14, 2021 15:40
[2021-05-14 19:53] LABS: MEAN CORPUSCULAR HEMOGLOBIN 31.5 pg (27.0-33.0); MEAN CORPUSCULAR HGB CONC 33.1 g/dl (32.0-36.5); PLATELET COUNT, AUTOMATED 191 10^3/uL (150-450); RED BLOOD COUNT 3.37 10^6/uL (4.30-6.10); WHITE BLOOD COUNT 6.5 10^3/uL (4.0-10.0)
[2021-05-14 19:57] LABS: HEMOGLOBIN 10.6 g/dl (13.5-17.5)
[2021-05-14] MEDS: ceFAZolin SOD 1 GM in D5W MINI-BAG PLUS 50 ML IV SCH (21:13)
[2021-05-14] MEDS: ATORVASTATIN 20 MG TAB PO SCH (21:14)
[2021-05-14] MEDS: SODIUM CHLORIDE 0.9% INJ 10 ML SYR IV PRN (22:07)
[2021-05-15] MEDS: ACETAMINOPHEN TAB 650MG DOSE (2X325MG) PO SCH ×6 (00:22→18:52)
[2021-05-15 06:00] VITALS: BP 111/50
[2021-05-15] MEDS: SODIUM CHLORIDE 0.9% INJ 10 ML SYR IV SCH ×2 (06:30→17:57)
[2021-05-15 06:37] LABS: BASO % 0.4 % (0.0-1.0); EOS # 0.9 10^3/uL (0.0-0.5); HEMATOCRIT 30.4 % (42.0-52.0); HEMOGLOBIN 10.1 g/dl (13.5-17.5); LYMPH # 0.8 10^3/uL (1.5-5.0); LYMPH % 10.8 % (24.0-44.0); MEAN CORPUSCULAR HEMOGLOBIN 31.5 pg (27.0-33.0); MEAN CORPUSCULAR HGB CONC 33.2 g/dl (32.0-36.5); MEAN CORPUSCULAR VOLUME 94.7 fl (80.0-96.0); MONO # 0.7 10^3/uL (0.0-0.8); MONO % 10.1 % (2.0-8.0); NEUTROPHILS # 4.5 10^3/uL (1.5-8.5); NEUTROPHILS % 65.3 % (36.0-66.0); PLATELET COUNT, AUTOMATED 195 10^3/uL (150-450); RED BLOOD COUNT 3.21 10^6/uL (4.30-6.10); WHITE BLOOD COUNT 6.9 10^3/uL (4.0-10.0)
[2021-05-15 07:07] LABS: CALCIUM LEVEL 8.7 MG/DL (8.8-10.2); CREATININE FOR GFR 2.62 MG/DL (0.70-1.30); GLOMERULAR FILTRATION RATE 25.6 (>42); POTASSIUM SERUM 3.6 MEQ/L (3.5-5.1)
[2021-05-15] MEDS: DOCUSATE SODIUM 100MG CAPSULE PO SCH ×2 (08:52→20:36)
[2021-05-15] MEDS: FERROUS SULFATE 325MG TAB PO SCH (08:53)
[2021-05-15] MEDS: MORPHINE 30 MG SA TAB PO SCH ×3 (08:53→20:47)
[2021-05-15] MEDS: ASPIRIN 81MG ENTERIC TABLET PO SCH ×2 (08:53→20:36)
[2021-05-15] MEDS: GABAPENTIN 300 MG CAP PO SCH ×2 (08:53→20:36)
[2021-05-15] MEDS: rifAMPin 150MG CAPSULE PO SCH ×2 (08:54→20:37)
[2021-05-15] MEDS: ASCORBIC ACID 500 MG TAB PO SCH (08:54)
[2021-05-15] MEDS: CYANOCOBALAMIN 500 MCG TAB PO SCH (08:54)
[2021-05-15] MEDS: ceFAZolin SOD 1 GM in D5W MINI-BAG PLUS 50 ML IV SCH ×2 (08:54→20:36)
[2021-05-15] MEDS: CALCITRIOL 0.25 MCG CAP (S0169) PO SCH (08:54)
[2021-05-15 08:56] VITALS: BP 112/54
[2021-05-15] MEDS: atenoloL 25 MG TAB PO SCH (09:00)
[2021-05-15] MEDS: **hydrALAZINE HCL** 25 MG TAB PO SCH (09:00)
[2021-05-15] MEDS: FUROSEMIDE 20 MG TAB PO SCH (09:00)
[2021-05-15] MEDS: SODIUM CHLORIDE 0.9% INJ 10 ML SYR IV PRN ×2 (10:38→20:38)
[2021-05-15 14:00] VITALS: BP 114/60
--- NOTE | 2021-05-15 17:31 | IPNPDOC ---
Subjective Date Seen The patient was seen on 05/15/21. Subjective Chief Complaint/HPI Mr. 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 Patient was seen this afternoon sitting up in a chair. He had a wound VAC on his right leg. Denies any chest pain or dyspnea. Objective Physical Examination General Exam: Positive: Alert, Cooperative Eye Exam: Negative: Sclera icteric ENT Exam: Positive: Atraumatic Neck Exam: Positive: Supple Chest Exam: Positive: Clear to auscultation; Negative: Rales, Rhonchi, Wheezing Heart Exam: Positive: Rate Normal, Regular Rhythm Abdomen Exam: Positive: Normal bowel sounds, Soft; Negative: Tenderness Neuro Exam: Positive: Normal Speech Psych Exam: Positive: Mental status NL, Mood NL Assessment /Plan Assessment Mr. 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 Orthopedic surgery was consulted. Orthopedic surgery took patient to the OR for I&D washout on 05/13/2021. Infectious disease consulted, planning for antibiotics for another 6 to 8 weeks followed by lifelong chronic suppressive therapy. Plan/VTE VTE Prophylaxis Ordered?: Yes Plan 1. 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 Hypertension Blood pressure appropriately controlled Continue atenolol and hydralazine 3. Chronic neuropathy Continue gabapentin 4. CKD stage 3 Baseline creatinine around 1.8 Close to baseline Continue supportive care 5. Macrocytic anemia Postsurgically, patient hemoglobin dropped to 7.2. Patient was given 2 units of packed red blood cells Hemoglobin responded appropriately Continue to monitor 6. Exposure to Covid Patient exposed to staff member positive for Covid Patient currently on quarantine 7. DVT prophylaxis SCDs and teds Disposition: Pending culture results VS, I&O, 24H, Fishbone Vital Signs/I&O Vital Signs Date Time Temp Pulse Resp B/P (MAP) Pulse Ox O2 Delivery O2 Flow Rate FiO2 05/15/21 14:00 97.4 63 18 114/60 (78) 95 Room Air 05/14/21 09:00 2.0 I&O- Last 24 Hours up to 6 AM 05/15/21 06:00 Intake Total 1300 ml Output Total 0 ml Balance 1300 ml Laboratory Data 24H LABS Laboratory Tests 2 05/14/21 19:41: Nucleated Red Blood Cells % (auto) 0.0 05/15/21 06:16: Nucleated Red Blood Cells % (auto) 0.0, Immature Granulocyte % (Auto) 0.4, Neutrophils (%) (Auto) 65.3, Lymphocytes (%) (Auto) 10.8L, Monocytes (%) (Auto) 10.1H, Eosinophils (%) (Auto) 13.0H, Basophils (%) (Auto) 0.4, Neutrophils # (Auto) 4.5, Lymphocytes # (Auto) 0.8L, Monocytes # (Auto) 0.7, Eosinophils # (Auto) 0.9H, Basophils # (Auto) 0.0, Anion Gap 9, Glomerular Filtration Rate 25.6L, Calcium Level 8.7L CBC/BMP Laboratory Tests 05/14/21 19:41 05/15/21 06:16 Microbiology Microbiology 05/13/21 Fungal Smear, Received Pending 05/13/21 Fungal Culture, Received Pending 05/13/21 Gram Stain - Final, Resulted 05/13/21 Wound Culture, Resulted Pending 05/13/21 Anaerobic Culture, Resulted Pending 05/13/21 Fungal Smear, Received Pending 05/13/21 Fungal Culture, Received Pending 05/13/21 Gram Stain - Final, Resulted 05/13/21 Wound Culture, Resulted Pending 05/13/21 Anaerobic Culture, Resulted Pending 05/13/21 Fungal Smear, Received Pending 05/13/21 Fungal Culture, Received Pending 05/13/21 Gram Stain - Final, Resulted 05/13/21 Neisseria gonorrhoeae Culture, Resulted Pending 05/13/21 Gram Stain - Final, Resulted 05/13/21 Wound Culture, Resulted Pending 05/13/21 Anaerobic Culture, Resulted Pending 05/09/21 Gram Stain - Final, Complete 05/09/21 Body Fluid Culture - Final, Complete Staphylococcus Aureus 05/09/21 Anaerobic Culture - Final, Complete 05/09/21 Blood Culture - Final, Complete NO GROWTH AFTER 5 DAYS 05/09/21 Blood Culture - Final, Complete NO GROWTH AFTER 5 DAYS ONEYDA SALEH DO May 15, 2021 17:31
[2021-05-15] MEDS: ATORVASTATIN 20 MG TAB PO SCH (20:36)
[2021-05-15 22:22] VITALS: BP 121/76
[2021-05-16] MEDS: ACETAMINOPHEN TAB 650MG DOSE (2X325MG) PO SCH ×4 (06:02→18:18)
[2021-05-16] MEDS: SODIUM CHLORIDE 0.9% INJ 10 ML SYR IV SCH ×3 (06:03→21:52)
[2021-05-16 06:05] VITALS: BP 120/55
[2021-05-16 06:36] LABS: BASO % 0.3 % (0.0-1.0); EOS % 14.6 % (0.0-3.0); HEMATOCRIT 30.9 % (42.0-52.0); HEMOGLOBIN 10.3 g/dl (13.5-17.5); LYMPH # 0.9 10^3/uL (1.5-5.0); LYMPH % 12.8 % (24.0-44.0); MEAN CORPUSCULAR HEMOGLOBIN 31.5 pg (27.0-33.0); MEAN CORPUSCULAR HGB CONC 33.3 g/dl (32.0-36.5); MEAN CORPUSCULAR VOLUME 94.5 fl (80.0-96.0); MONO # 0.6 10^3/uL (0.0-0.8); MONO % 9.2 % (2.0-8.0); NEUTROPHILS # 4.2 10^3/uL (1.5-8.5); NEUTROPHILS % 62.8 % (36.0-66.0); PLATELET COUNT, AUTOMATED 230 10^3/uL (150-450); RED BLOOD COUNT 3.27 10^6/uL (4.30-6.10); WHITE BLOOD COUNT 6.6 10^3/uL (4.0-10.0)
[2021-05-16 06:56] LABS: CALCIUM LEVEL 9.7 MG/DL (8.8-10.2); CREATININE FOR GFR 2.28 MG/DL (0.70-1.30); POTASSIUM SERUM 3.6 MEQ/L (3.5-5.1)
[2021-05-16] MEDS: ceFAZolin SOD 1 GM in D5W MINI-BAG PLUS 50 ML IV SCH (08:27)
[2021-05-16] MEDS: FERROUS SULFATE 325MG TAB PO SCH (08:34)
[2021-05-16] MEDS: CALCITRIOL 0.25 MCG CAP (S0169) PO SCH (08:34)
[2021-05-16] MEDS: ASCORBIC ACID 500 MG TAB PO SCH (08:35)
[2021-05-16] MEDS: FUROSEMIDE 20 MG TAB PO SCH (08:35)
[2021-05-16] MEDS: atenoloL 25 MG TAB PO SCH (08:35)
[2021-05-16] MEDS: DOCUSATE SODIUM 100MG CAPSULE PO SCH ×2 (08:36→21:00)
[2021-05-16] MEDS: GABAPENTIN 300 MG CAP PO SCH ×2 (08:36→21:00)
[2021-05-16] MEDS: rifAMPin 150MG CAPSULE PO SCH ×2 (08:36→21:00)
[2021-05-16] MEDS: CYANOCOBALAMIN 500 MCG TAB PO SCH (08:36)
[2021-05-16] MEDS: **hydrALAZINE HCL** 25 MG TAB PO SCH (08:37)
[2021-05-16] MEDS: MORPHINE 30 MG SA TAB PO SCH ×2 (08:37→21:01)
[2021-05-16] MEDS: ASPIRIN 81MG ENTERIC TABLET PO SCH ×2 (08:38→21:00)
[2021-05-16] MEDS: SODIUM CHLORIDE 0.9% INJ 10 ML SYR IV PRN (13:10)
--- NOTE | 2021-05-16 16:56 | IPNPDOC ---
Subjective Date Seen The patient was seen on 05/16/21. Subjective Chief Complaint/HPI Mr. 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 This morning, he denies any chest pain or dyspnea. I spoke with orthopedic surgery and from their standpoint, he is ready for discharge. I spoke with ID, and we do not have to wait for the new culture results. ID wrote script for antibiotics. Physical therapy worked with patient. Patient will need a few more sessions prior to discharge. Anticipate discharge home on Wednesday. Objective Physical Examination General Exam: Positive: Alert, Cooperative Eye Exam: Negative: Sclera icteric ENT Exam: Positive: Atraumatic Neck Exam: Positive: Supple Chest Exam: Positive: Clear to auscultation Heart Exam: Positive: Rate Normal, Regular Rhythm Abdomen Exam: Positive: Normal bowel sounds, Soft Neuro Exam: Positive: Normal Speech Psych Exam: Positive: Mental status NL, Mood NL Assessment /Plan Assessment Mr. 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 Orthopedic surgery was consulted. Orthopedic surgery took patient to the OR for I&D washout on 05/13/2021. Infectious disease consulted, planning for antibiotics for another 6 to 8 weeks followed by lifelong chronic suppressive therapy. Plan/VTE VTE Prophylaxis Ordered?: Yes Plan 1. 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 Hypertension Blood pressure appropriately controlled Continue atenolol and hydralazine 3. Chronic neuropathy Continue gabapentin 4. CKD stage 3 Baseline creatinine around 1.8 Close to baseline Continue supportive care 5. Macrocytic anemia Postsurgically, patient hemoglobin dropped to 7.2. Patient was given 2 units of packed red blood cells Hemoglobin responded appropriately Continue to monitor 6. Exposure to Covid Patient exposed to staff member positive for Covid Patient currently on quarantine 7. DVT prophylaxis SCDs and teds Disposition: Patient will need 1 to 2 more sessions with PT. Anticipate discharge home on Wednesday. VS, I&O, 24H, [place] Vital Signs/I&O Vital Signs Date Time Temp Pulse Resp B/P (MAP) Pulse Ox O2 Delivery O2 Flow Rate FiO2 05/16/21 08:37 16 05/16/21 08:35 70 120/55 05/16/21 06:05 97.3 94 Room Air 05/14/21 09:00 2.0 I&O- Last 24 Hours up to 6 AM 05/16/21 06:00 Intake Total 770 ml Output Total 450 ml Balance 320 ml Laboratory Data 24H LABS Laboratory Tests 2 05/16/21 06:21: Immature Granulocyte % (Auto) 0.3, Neutrophils (%) (Auto) 62.8, Lymphocytes (%) (Auto) 12.8L, Monocytes (%) (Auto) 9.2H, Eosinophils (%) (Auto) 14.6H, Basophils (%) (Auto) 0.3, Neutrophils # (Auto) 4.2, Lymphocytes # (Auto) 0.9L, Monocytes # (Auto) 0.6, Eosinophils # (Auto) 1.0H, Basophils # (Auto) 0.0, Nucleated Red Blood Cells % (auto) 0.0, Anion Gap 7L, Glomerular Filtration Rate 30.0L, Calciu m Level 9.7 CBC/BMP Laboratory Tests 05/16/21 06:21 Microbiology Microbiology 05/13/21 Fungal Smear, Received Pending 05/13/21 Fungal Culture, Received Pending 05/13/21 Gram Stain - Final, Resulted 05/13/21 Wound Culture, Resulted Pending 05/13/21 Anaerobic Culture - Final, Resulted 05/13/21 Fungal Smear, Received Pending 05/13/21 Fungal Culture, Received Pending 05/13/21 Gram Stain - Final, Resulted 05/13/21 Wound Culture - Preliminary, Resulted Staphylococcus Aureus 05/13/21 Anaerobic Culture - Final, Resulted 05/13/21 Fungal Smear, Received Pending 05/13/21 Fungal Culture, Received Pending 05/13/21 Gram Stain - Final, Resulted 05/13/21 Neisseria gonorrhoeae Culture, Resulted Pending 05/13/21 Gram Stain - Final, Resulted 05/13/21 Wound Culture - Preliminary, Resulted Staphylococcus Aureus 05/13/21 Anaerobic Culture - Final, Resulted 05/09/21 Gram Stain - Final, Complete 05/09/21 Body Fluid Culture - Final, Complete Staphylococcus Aureus 05/09/21 Anaerobic Culture - Final, Complete 05/09/21 Blood Culture - Final, Complete NO GROWTH AFTER 5 DAYS 05/09/21 Blood Culture - Final, Complete NO GROWTH AFTER 5 DAYS ONEYDA SALEH DO May 16, 2021 16:56
[2021-05-16 18:00] VITALS: BP 132/56
[2021-05-16] MEDS: ATORVASTATIN 20 MG TAB PO SCH (21:00)
[2021-05-16] MEDS: ceFAZolin SOD 2 GM in IV 1 EA IV SCH (21:01)
[2021-05-16 22:00] VITALS: BP 112/53
[2021-05-17 06:00] VITALS: BP 111/52
[2021-05-17] MEDS: ACETAMINOPHEN TAB 650MG DOSE (2X325MG) PO SCH ×4 (06:00→17:09)
[2021-05-17] MEDS: DOCUSATE SODIUM 100MG CAPSULE PO SCH ×2 (09:00→21:31)
[2021-05-17] MEDS: ceFAZolin SOD 2 GM in IV 1 EA IV SCH ×2 (09:31→21:30)
[2021-05-17] MEDS: rifAMPin 150MG CAPSULE PO SCH ×2 (09:32→21:31)
[2021-05-17] MEDS: ASCORBIC ACID 500 MG TAB PO SCH (09:32)
[2021-05-17] MEDS: CALCITRIOL 0.25 MCG CAP (S0169) PO SCH (09:33)
[2021-05-17] MEDS: CYANOCOBALAMIN 500 MCG TAB PO SCH (09:33)
[2021-05-17] MEDS: FERROUS SULFATE 325MG TAB PO SCH (09:33)
[2021-05-17] MEDS: GABAPENTIN 300 MG CAP PO SCH ×2 (09:34→21:31)
[2021-05-17] MEDS: ASPIRIN 81MG ENTERIC TABLET PO SCH ×2 (09:34→21:31)
[2021-05-17] MEDS: **hydrALAZINE HCL** 25 MG TAB PO SCH (09:35)
[2021-05-17] MEDS: FUROSEMIDE 20 MG TAB PO SCH (09:35)
[2021-05-17] MEDS: MORPHINE 30 MG SA TAB PO SCH (09:37)
[2021-05-17] MEDS: atenoloL 25 MG TAB PO SCH (09:37)
--- NOTE | 2021-05-17 10:07 | IPNPDOC ---
Text Note Date of Service The patient was seen on 05/16/21. NOTE POD 3 I&D w/o Right TKA with liner change Pt sitting comfortably in chair. Mobilizing with walker. Denies any c/c. Minimal output from prevena dressing, which is intact. Pt isolated due to COVID contact. No reported sxs. Reportedly awaiting PT clearance prior to dc home. Ordered home prevena vac unit to be sent up from the OR. Pt has an appt in the Office on Wednesday. Will likely still be in hospital and assessed there in the morning prior to dc. VS,Fishbone, I+O VS, Fishbone, I+O Vital Signs Date Time Temp Pulse Resp B/P (MAP) Pulse Ox O2 Delivery O2 Flow Rate FiO2 05/17/21 09:37 16 05/17/21 09:35 111/52 05/17/21 06:00 97.5 62 97 Room Air 05/14/21 09:00 2.0 l I&O- Last 24 Hours up to 6 AM 05/17/21 06:00 Intake Total 1475 ml Output Total 1700 ml Balance -225 ml STEPHEN TILLMAN MD May 17, 2021 10:07
[2021-05-17 10:14] LABS: HEMATOCRIT 32.7 % (42.0-52.0); HEMOGLOBIN 10.8 g/dl (13.5-17.5); MEAN CORPUSCULAR HEMOGLOBIN 31.2 pg (27.0-33.0); MEAN CORPUSCULAR VOLUME 94.5 fl (80.0-96.0); PLATELET COUNT, AUTOMATED 319 10^3/uL (150-450); RED BLOOD COUNT 3.46 10^6/uL (4.30-6.10); WHITE BLOOD COUNT 7.4 10^3/uL (4.0-10.0)
[2021-05-17 10:36] LABS: CALCIUM LEVEL 10.8 MG/DL (8.8-10.2); CREATININE FOR GFR 2.06 MG/DL (0.70-1.30); GLOMERULAR FILTRATION RATE 33.8 (>42); POTASSIUM SERUM 3.4 MEQ/L (3.5-5.1)
[2021-05-17] MEDS: SODIUM CHLORIDE 0.9% INJ 10 ML SYR IV PRN (11:49)
--- NOTE | 2021-05-17 13:41 | IPN ---
PROGRESS NOTE DATE: 05/17/2021 SUBJECTIVE: Hossein is doing well. He is in good spirits. He is walking independently with a Prevena wound V.A.C. and a walker to the bathroom and back. He states he has some pain in the knee but it is tolerable. No fevers or chills. No nausea, vomiting, or diarrhea. OBJECTIVE: VITAL SIGNS: Temperature 97.4, pulse 70, respirations 18, blood pressure 120/55, O2 saturation 94% on room air. HEART: Normal S1, S2. Systolic ejection murmur 2/6, unchanged. LUNGS: Lungs show crackles at the right base, decreased air entry. ABDOMEN: Soft, nontender. No hepatosplenomegaly. EXTREMITIES: No edema, no calf swelling, no redness. Right below the knee has erythema which is chronic with venous stasis changes, +1 pitting edema. Right knee with a Prevena wound dressing. The patient is able to bend the knee about 30 degrees. LABS: White count 6.6, hemoglobin 10.3, hematocrit 30.9, platelets 230, 62% neutrophils, 12% lymphocytes, 10% monocytes, 14% eosinophils. Sodium 137, potassium 3.6, chloride 104, bicarb 26, BUN 42, creatinine 2.38, glucose 105, calcium 9.7, LDH 143, C-reactive protein 23.6. Wound culture was positive for Staph aureus, MSSA from 05/09. Blood cultures two sets were no growth. Fungal smear and cultures are still pending. IMPRESSION: 1. Prosthetic joint infection, recurrent in spite of two-step procedure with explantation and reimplantation of the prosthesis. He developed recurrent Staph aureus one month post re-do surgery. The patient will be treated with another six week course of IV cefazolin with p.o. rifampin followed by lifelong therapy. He underwent irrigation and debridement of the right total knee arthroplasty with liner revision exchange on 05/13/2021 2. Hypertension with chronic kidney disease. The patient is stable and well controlled. Creatinine baseline is 1.8 but has fluctuated up to a mid 2's level. The patient's cefazolin dose will be renally adjusted to every 12 hours but he needs to be on 2 gm every 12 hours along with rifampin. 3. COVID exposure. The patient is on isolation. PLAN: Discussed with Meg from Social Work to arrange for home IV antibiotic. Hopefully he can go home on Wednesday. He will need cefazolin 2 gm every 12 hours IV with rifampin 300 mg p.o. twice daily for six weeks followed by oral antibiotic. His end of therapy will be 06/24/2021. He will need to follow up with Infectious Disease in two to three weeks post discharge. He will have blood work done weekly including a CBC, basic, ESR, CRP. [facility]
[2021-05-17 14:00] VITALS: BP 113/50
[2021-05-17] MEDS: SODIUM CHLORIDE 0.9% INJ 10 ML SYR IV SCH ×2 (17:10→22:14)
--- NOTE | 2021-05-17 19:52 | IPNPDOC ---
Subjective Date Seen The patient was seen on 05/17/21. Subjective Chief Complaint/HPI Mr. 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 Today he denies any chest pain or dyspnea. was concerned that he was becoming mildly altered. This is happened before when he was on narcotics. We will start weaning his oxycodone. Objective Physical Examination General Exam: Positive: Alert, Cooperative Eye Exam: Negative: Sclera icteric ENT Exam: Positive: Atraumatic Neck Exam: Positive: Supple Chest Exam: Positive: Clear to auscultation Heart Exam: Positive: Rate Normal, Regular Rhythm Abdomen Exam: Positive: Normal bowel sounds, Soft Neuro Exam: Positive: Normal Speech Psych Exam: Positive: Mental status NL, Mood NL Assessment /Plan Assessment Mr. 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 Orthopedic surgery was consulted. Orthopedic surgery took patient to the OR for I&D washout on 05/13/2021. Infectious disease consulted, planning for antibiotics until 06/24/2021 followed by lifelong chronic suppressive therapy. Plan/VTE VTE Prophylaxis Ordered?: Yes Plan 1. 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 Hypertension Blood pressure appropriately controlled Continue atenolol and hydralazine 3. Chronic neuropathy Continue gabapentin 4. CKD stage 3 Baseline creatinine around 1.8 Close to baseline Continue supportive care 5. Macrocytic anemia Postsurgically, patient hemoglobin dropped to 7.2. Patient was given 2 units of packed red blood cells Hemoglobin responded appropriately Continue to monitor 6. Exposure to Covid Patient exposed to staff member positive for Covid Patient currently on quarantine 7. DVT prophylaxis SCDs and teds Disposition: Anticipate discharge home on Wednesday. VS, I&O, 24H, Fishbone Vital Signs/I&O Vital Signs Date Time Temp Pulse Resp B/P (MAP) Pulse Ox O2 Delivery O2 Flow Rate FiO2 05/17/21 14:00 97.0 63 18 113/50 (71) 95 Room Air 05/14/21 09:00 2.0 I&O- Last 24 Hours up to 6 AM 05/17/21 06:00 Intake Total 1475 ml Output Total 1700 ml Balance -225 ml Laboratory Data 24H LABS Laboratory Tests 2 05/17/21 09:56: Nucleated Red Blood Cells % (auto) 0.0, Anion Gap 8, Glomerular Filtration Rate 33.8L, Calcium Level 10.8H CBC/BMP Laboratory Tests 05/17/21 09:56 Microbiology Microbiology 05/13/21 Fungal Smear, Received Pending 05/13/21 Fungal Culture, Received Pending 05/13/21 Gram Stain - Final, Resulted 05/13/21 Wound Culture, Resulted Pending 05/13/21 Anaerobic Culture - Final, Resulted 05/13/21 Fungal Smear, Received Pending 05/13/21 Fungal Culture, Received Pending 05/13/21 Gram Stain - Final, Complete 05/13/21 Wound Culture - Final, Complete Staphylococcus Aureus 05/13/21 Anaerobic Culture - Final, Complete 05/13/21 Fungal Smear, Received Pending 05/13/21 Fungal Culture, Received Pending 05/13/21 Gram Stain - Final, Complete 05/13/21 Neisseria gonorrhoeae Culture - Final, Complete 05/13/21 Gram Stain - Final, Complete 05/13/21 Wound Culture - Final, Complete Staphylococcus Aureus 05/13/21 Anaerobic Culture - Final, Complete 05/09/21 Gram Stain - Final, Complete 05/09/21 Body Fluid Culture - Final, Complete Staphylococcus Aureus 05/09/21 Anaerobic Culture - Final, Complete 05/09/21 Blood Culture - Final, Complete NO GROWTH AFTER 5 DAYS 05/09/21 Blood Culture - Final, Complete NO GROWTH AFTER 5 DAYS ONEYDA SALEH DO May 17, 2021 19:52
[2021-05-17] MEDS ORDERED: RIFA30CA PO (19:53)
[2021-05-17] MEDS: MORPHINE 15 MG SA TAB PO SCH (21:00)
[2021-05-17] MEDS: ATORVASTATIN 20 MG TAB PO SCH (21:31)
[2021-05-17] MEDS: traMADol 50 MG TAB PO PRN (21:31)
[2021-05-17 22:00] VITALS: BP 144/58
[2021-05-18] MEDS: ACETAMINOPHEN TAB 650MG DOSE (2X325MG) PO SCH ×4 (05:00→18:00)
[2021-05-18 06:00] VITALS: BP 122/57
[2021-05-18 06:37] LABS: HEMATOCRIT 28.6 % (42.0-52.0); HEMOGLOBIN 9.3 g/dl (13.5-17.5); MEAN CORPUSCULAR HEMOGLOBIN 31.1 pg (27.0-33.0); MEAN CORPUSCULAR HGB CONC 32.5 g/dl (32.0-36.5); MEAN CORPUSCULAR VOLUME 95.7 fl (80.0-96.0); PLATELET COUNT, AUTOMATED 287 10^3/uL (150-450); RED BLOOD COUNT 2.99 10^6/uL (4.30-6.10); WHITE BLOOD COUNT 6.4 10^3/uL (4.0-10.0)
[2021-05-18 07:02] LABS: CALCIUM LEVEL 10.1 MG/DL (8.8-10.2); CREATININE FOR GFR 2.08 MG/DL (0.70-1.30); GLOMERULAR FILTRATION RATE 33.4 (>42); POTASSIUM SERUM 3.3 MEQ/L (3.5-5.1)
[2021-05-18] MEDS ORDERED: POTASSIUM CHLORIDE 10MEQ SR TABLET PO ONE (07:20)
[2021-05-18] MEDS: rifAMPin 150MG CAPSULE PO SCH ×2 (08:36→21:33)
[2021-05-18] MEDS: GABAPENTIN 300 MG CAP PO SCH ×2 (08:37→21:33)
[2021-05-18] MEDS: ASCORBIC ACID 500 MG TAB PO SCH (08:37)
[2021-05-18] MEDS: **hydrALAZINE HCL** 25 MG TAB PO SCH (08:38)
[2021-05-18] MEDS: ASPIRIN 81MG ENTERIC TABLET PO SCH ×2 (08:38→21:33)
[2021-05-18] MEDS: atenoloL 25 MG TAB PO SCH (08:38)
[2021-05-18] MEDS: FUROSEMIDE 20 MG TAB PO SCH (08:39)
[2021-05-18] MEDS: CALCITRIOL 0.25 MCG CAP (S0169) PO SCH (08:39)
[2021-05-18] MEDS: CYANOCOBALAMIN 500 MCG TAB PO SCH (08:39)
[2021-05-18] MEDS: FERROUS SULFATE 325MG TAB PO SCH (08:39)
[2021-05-18] MEDS: DOCUSATE SODIUM 100MG CAPSULE PO SCH ×2 (09:00→21:33)
[2021-05-18] MEDS: MORPHINE 15 MG SA TAB PO SCH (09:00)
[2021-05-18] MEDS: ceFAZolin SOD 2 GM in IV 1 EA IV SCH ×2 (10:37→21:33)
[2021-05-18] MEDS: SODIUM CHLORIDE 0.9% INJ 10 ML SYR IV PRN (12:37)
--- NOTE | 2021-05-18 15:19 | IPNPDOC ---
Subjective Date Seen The patient was seen on 05/18/21. Subjective Chief Complaint/HPI Mr. 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 Last night, patient was given tramadol instead of morphine, and patient did better. This morning patient denies any chest pain or dyspnea. His right knee did not bother him much. We will discontinue the morphine and the prn oxycodone IR. Continue with acetaminophen and Ultram. Objective Physical Examination General Exam: Positive: Alert, Cooperative Eye Exam: Negative: Sclera icteric ENT Exam: Positive: Atraumatic Neck Exam: Positive: Supple Chest Exam: Positive: Clear to auscultation Heart Exam: Positive: Rate Normal, Regular Rhythm Abdomen Exam: Positive: Normal bowel sounds, Soft Neuro Exam: Positive: Normal Speech Psych Exam: Positive: Mental status NL, Mood NL Assessment /Plan Assessment Mr. 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 Orthopedic surgery was consulted. Orthopedic surgery took patient to the OR for I&D washout on 05/13/2021. Infectious disease consulted, planning for antibiotics until 06/24/2021 followed by lifelong ch ronic suppressive therapy. Plan/VTE VTE Prophylaxis Ordered?: Yes Plan 1. 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 Hypertension Blood pressure appropriately controlled Continue atenolol and hydralazine 3. Chronic neuropathy Continue gabapentin 4. CKD stage 3 Baseline creatinine around 1.8 Close to baseline Continue supportive care 5. Macrocytic anemia Postsurgically, patient hemoglobin dropped to 7.2. Patient was given 2 units of packed red blood cells Hemoglobin responded appropriately Continue to monitor 6. Exposure to Covid Patient exposed to staff member positive for Covid Patient currently on quarantine 7. DVT prophylaxis SCDs and teds Disposition: Anticipate discharge home on Wednesday. VS, I&O, 24H, Fishbone Vital Signs/I&O Vital Signs Date Time Temp Pulse Resp B/P (MAP) Pulse Ox O2 Delivery O2 Flow Rate FiO2 05/18/21 08:38 122/57 05/18/21 08:38 58 05/18/21 06:00 97.9 18 97 Room Air 05/14/21 09:00 2.0 I&O- Last 24 Hours up to 6 AM 05/18/21 06:00 Intake Total 520 ml Output Total 900 ml Balance -380 ml Laboratory Data 24H LABS Laboratory Tests 2 05/18/21 06:16: Nucleated Red Blood Cells % (auto) 0.0, Anion Gap 8, Glomerular Filtration Rate 33.4L, Calcium Level 10.1 CBC/BMP Laboratory Tests 05/18/21 06:16 Microbiology Microbiology 05/13/21 Fungal Smear, Received Pending 05/13/21 Fungal Culture, Received Pending 05/13/21 Gram Stain - Final, Complete 05/13/21 Wound Culture - Final, Complete Staphylococcus Aureus 05/13/21 Anaerobic Culture - Final, Complete 05/13/21 Fungal Smear, Received Pending 05/13/21 Fungal Culture, Received Pending 05/13/21 Gram Stain - Final, Complete 05/13/21 Wound Culture - Final, Complete Staphylococcus Aureus 05/13/21 Anaerobic Culture - Final, Complete 05/13/21 Fungal Smear, Received Pending 05/13/21 Fungal Culture, Received Pending 05/13/21 Gram Stain - Final, Complete 05/13/21 Neisseria gonorrhoeae Culture - Final, Complete 05/13/21 Gram Stain - Final, Complete 05/13/21 Wound Culture - Final, Complete Staphylococcus Aureus 05/13/21 Anaerobic Culture - Final, Complete 05/09/21 Gram Stain - Final, Complete 05/09/21 Body Fluid Culture - Final, Complete Staphylococcus Aureus 05/09/21 Anaerobic Culture - Final, Complete 05/09/21 Blood Culture - Final, Complete NO GROWTH AFTER 5 DAYS 05/09/21 Blood Culture - Final, Complete NO GROWTH AFTER 5 DAYS ONEYDA SALEH DO May 18, 2021 15:19
[2021-05-18] MEDS: SODIUM CHLORIDE 0.9% INJ 10 ML SYR IV SCH ×2 (18:11→22:21)
[2021-05-18] MEDS: traMADol 50 MG TAB PO PRN (21:33)
[2021-05-18] MEDS: ATORVASTATIN 20 MG TAB PO SCH (21:33)
[2021-05-18 21:50] VITALS: BP 134/63
[2021-05-19] MEDS: ACETAMINOPHEN TAB 650MG DOSE (2X325MG) PO SCH ×4 (05:40→18:04)
[2021-05-19 06:00] VITALS: BP 134/58
[2021-05-19 07:07] LABS: HEMATOCRIT 30.2 % (42.0-52.0); HEMOGLOBIN 9.8 g/dl (13.5-17.5); MEAN CORPUSCULAR HEMOGLOBIN 31.1 pg (27.0-33.0); MEAN CORPUSCULAR HGB CONC 32.5 g/dl (32.0-36.5); MEAN CORPUSCULAR VOLUME 95.9 fl (80.0-96.0); PLATELET COUNT, AUTOMATED 329 10^3/uL (150-450); RED BLOOD COUNT 3.15 10^6/uL (4.30-6.10); WHITE BLOOD COUNT 6.3 10^3/uL (4.0-10.0)
[2021-05-19 07:41] LABS: CALCIUM LEVEL 10.2 MG/DL (8.8-10.2); CREATININE FOR GFR 1.94 MG/DL (0.70-1.30); GLOMERULAR FILTRATION RATE 36.2 (>42); POTASSIUM SERUM 3.7 MEQ/L (3.5-5.1)
[2021-05-19] MEDS: ceFAZolin SOD 2 GM in IV 1 EA IV SCH ×2 (09:30→22:39)
[2021-05-19] MEDS: ASCORBIC ACID 500 MG TAB PO SCH (09:31)
[2021-05-19] MEDS: CALCITRIOL 0.25 MCG CAP (S0169) PO SCH (09:31)
[2021-05-19] MEDS: FERROUS SULFATE 325MG TAB PO SCH (09:31)
[2021-05-19] MEDS: ASPIRIN 81MG ENTERIC TABLET PO SCH ×2 (09:31→20:26)
[2021-05-19] MEDS: DOCUSATE SODIUM 100MG CAPSULE PO SCH ×2 (09:31→20:26)
[2021-05-19] MEDS: CYANOCOBALAMIN 500 MCG TAB PO SCH (09:31)
[2021-05-19] MEDS: GABAPENTIN 300 MG CAP PO SCH ×2 (09:31→20:26)
[2021-05-19] MEDS: rifAMPin 150MG CAPSULE PO SCH ×2 (09:31→20:25)
[2021-05-19] MEDS: atenoloL 25 MG TAB PO SCH (09:32)
[2021-05-19] MEDS: **hydrALAZINE HCL** 25 MG TAB PO SCH (09:32)
[2021-05-19] MEDS: FUROSEMIDE 20 MG TAB PO SCH (09:32)
[2021-05-19 14:00] VITALS: BP_SYST 100; BP_SYST 122; BP_DIAS 50; BP_DIAS 70
[2021-05-19 14:12] VITALS: BP 122/50
[2021-05-19 14:18] VITALS: BP 122/50
[2021-05-19] MEDS: SODIUM CHLORIDE 0.9% INJ 10 ML SYR IV SCH ×2 (18:04→23:47)
[2021-05-19 19:26] LABS: ALBUMIN 2.3 GM/DL (3.2-5.2); BILIRUBIN,TOTAL 0.2 MG/DL (0.2-1.0); CALCIUM LEVEL 10.9 MG/DL (8.8-10.2); CREATININE FOR GFR 1.82 MG/DL (0.70-1.30); POTASSIUM SERUM 3.6 MEQ/L (3.5-5.1); TOTAL PROTEIN 6.4 GM/DL (6.4-8.2)
[2021-05-19] MEDS: SENNA 8.6 MG TAB (SENOKOT) PO PRN (20:25)
[2021-05-19] MEDS: ATORVASTATIN 20 MG TAB PO SCH (20:26)
[2021-05-19 20:34] VITALS: BP 124/52
--- NOTE | 2021-05-19 20:38 | IPNPDOC ---
Subjective Date Seen The patient was seen on 05/19/21. Subjective Chief Complaint/HPI Mr. 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 This morning, he denies any chest pain or dyspnea. He tells me his right knee is okay. Physical therapy worked with patient, and patient may need rehab. Pending on how patient does in the next few days. Objective Physical Examination General Exam: Positive: Alert, Cooperative Eye Exam: Negative: Sclera icteric ENT Exam: Positive: Atraumatic Neck Exam: Positive: Supple Chest Exam: Positive: Clear to auscultation Heart Exam: Positive: Rate Normal, Regular Rhythm Abdomen Exam: Positive: Normal bowel sounds, Soft Neuro Exam: Positive: Normal Speech Psych Exam: Positive: Mental status NL, Mood NL Assessment /Plan Assessment Mr. 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 Orthopedic surgery was consulted. Orthopedic surgery took patient to the OR for I&D washout on 05/13/2021. Infectious disease consulted, planning for antibiotics until 06/24/2021 followed by lifelong chronic suppressive therapy. Plan/VTE VTE Prophylaxis Ordered?: Yes Plan 1. 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 Hypertension Blood pressure appropriately controlled Continue atenolol and hydralazine 3. Chronic neuropathy Continue gabapentin 4. CKD stage 3 Baseline creatinine around 1.8 Close to baseline Continue supportive care 5. Macrocytic anemia Postsurgically, patient hemoglobin dropped to 7.2. Patient was given 2 units of packed red blood cells Hemoglobin responded appropriately Continue to monitor 6. Exposure to Covid Patient exposed to staff member positive for Covid Patient currently on quarantine 7. DVT prophylaxis SCDs and teds Disposition: Pending physical therapy reeval. Either home with services and home IV or rehab/subacute rehab VS, I&O, 24H, Fishbone Vital Signs/I&O Vital Signs Date Time Temp Pulse Resp B/P (MAP) Pulse Ox O2 Delivery O2 Flow Rate FiO2 05/19/21 20:34 99.4 16 95 124/52 (76) Room Air 05/19/21 14:18 95 2.0 I&O- Last 24 Hours up to 6 AM 05/19/21 06:00 Intake Total 950 ml Output Total 1100 ml Balance -150 ml Laboratory Data 24H LABS Laboratory Tests 2 05/19/21 06:42: Nucleated Red Blood Cells % (auto) 0.0, Anion Gap 5L, Glomerular Filtration Rate 36.2L, Calcium Level 10.2 05/19/21 18:41: Anion Gap 7L, Glomerular Filtration Rate 39.0L, Calcium Level 10.9H, Total Bilirubin 0.2, Aspartate Amino Transf (AST/SGOT) 44H, Alanine Aminotransferase (ALT/SGPT) 10L, Alkaline Phosphatase 127H, Total Protein 6.4, Albumin 2.3L, Albumin/Globulin Ratio 0.6 CBC/BMP Laboratory Tests 05/19/21 06:42 05/19/21 18:41 Microbiology Microbiology 05/13/21 Fungal Smear, Received Pending 05/13/21 Fungal Culture, Received Pending 05/13/21 Gram Stain - Final, Complete 05/13/21 Wound Culture - Final, Complete Staphylococcus Aureus 05/13/21 Anaerobic Culture - Final, Complete 05/13/21 Fungal Smear, Received Pending 05/13/21 Fungal Culture, Received Pending 05/13/21 Gram Stain - Final, Complete 05/13/21 Wound Culture - Final, Complete Staphylococcus Aureus 05/13/21 Anaerobic Culture - Final, Complete 05/13/21 Fungal Smear, Received Pending 05/13/21 Fungal Culture, Received Pending 05/13/21 Gram Stain - Final, Complete 05/13/21 Neisseria gonorrhoeae Culture - Final, Complete 05/13/21 Gram Stain - Final, Complete 05/13/21 Wound Culture - Final, Complete Staphylococcus Aureus 05/13/21 Anaerobic Culture - Final, Complete 05/09/21 Gram Stain - Final, Complete 05/09/21 Body Fluid Culture - Final, Complete Staphylococcus Aureus 05/09/21 Anaerobic Culture - Final, Complete 05/09/21 Blood Culture - Final, Complete NO GROWTH AFTER 5 DAYS 05/09/21 Blood Culture - Final, Complete NO GROWTH AFTER 5 DAYS ONEYDA SALEH DO May 19, 2021 20:38
[2021-05-20] MEDS: ACETAMINOPHEN TAB 650MG DOSE (2X325MG) PO SCH ×4 (05:10→17:50)
[2021-05-20 09:36] LABS: HEMATOCRIT 33.6 % (42.0-52.0); HEMOGLOBIN 10.6 g/dl (13.5-17.5); MEAN CORPUSCULAR HEMOGLOBIN 30.3 pg (27.0-33.0); MEAN CORPUSCULAR HGB CONC 31.5 g/dl (32.0-36.5); PLATELET COUNT, AUTOMATED 380 10^3/uL (150-450); WHITE BLOOD COUNT 6.7 10^3/uL (4.0-10.0)
--- NOTE | 2021-05-20 09:53 | IPNPDOC ---
Text Note Date of Service The patient was seen on 05/19/21. NOTE Patient was seen on May 19, 2021 Postop day 7 right knee periprosthetic infection I&D washout with liner The patient was quite somnolent when I visited this morning. He states that he is not been getting a lot of sleep. He does not denies any significant pain or discomfort. Overall the patient looks fatigued this morning. His wound VAC was removed. 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 The wound was cleansed with chlorhexidine swabs. The edges were painted with Betadine and a Mepilex border dressing was applied. As per documentation the plan is for the patient to be evaluated by physical therapy today with possible discharge home plan. He does have IV antibiotics and is being followed by infectious disease service. Plan for the patient to be reevaluated in office in 1 week's time. The dressing will remain in place until that time. In terms of range of motion he is only to do 0 to 30 degrees of flexion at this time for the right knee. VS,Issacbone, I+O VS, Issacbone, I+O Laboratory Tests 05/19/21 18:41 05/20/21 09:04 Vital Signs Date Time Temp Pulse Resp B/P (MAP) Pulse Ox O2 Delivery O2 Flow Rate FiO2 05/19/21 20:34 99.4 16 95 124/52 (76) Room Air 05/19/21 14:18 95 2.0 I&O- Last 24 Hours up to 6 AM 05/20/21 05:59 Intake Total 1570 ml Output Total 700 ml Balance 870 ml STEPHEN TILLMAN MD May 20, 2021 09:53
[2021-05-20 09:55] LABS: C REACTIVE PROTEIN QUANTITATIV 3.45 MG/DL (0.00-0.30); CALCIUM LEVEL 10.6 MG/DL (8.8-10.2); CREATININE FOR GFR 1.86 MG/DL (0.70-1.30); POTASSIUM SERUM 3.3 MEQ/L (3.5-5.1)
--- NOTE | 2021-05-20 09:57 | IPNPDOC ---
Text Note Date of Service The patient was seen on 05/20/21. NOTE Postop day 8 right total knee arthroplasty periprosthetic infection with washout and I&D liner change. Overall the patient appears to be doing better today he is much more alert. He is sitting up in bed. He states that he did a lot of walking with physical therapy yesterday. The right knee was examined. There were 2 large areas of bleeding and drainage to the Mepilex dressing. The decision was made to change this. The dressing was taken down. There was no active bleeding but it was noted that there was still some areas of some moisture around the dressing without active bleeding or drainage. The wound was cleansed with chlorhexidine swab and painted with Beta dine. The decision was made to place another Crystal dressing. I am concerned that the patient may have continued drainage which may cause issues that could lead to wound complications and worsening issues associated with additional infections or otherwise. I would like to put the patient back into another Prevena dressing until the incision is healed up. The patient is in understanding of this. Application of Prevena dressing to right knee. 35 cm dressing applied with Prevena wound VAC 125 mmHg setting placed. It now appears that based on the patient's evaluation he may be being trans ferred to [place] for rehabilitation prior to going back home. He does have plans for follow-up in roughly 1 week in the office for repeat evaluation. The dressing will remain in place until that time. He also states that he believes that he may be having a change of his PICC line prior to transfer out of the hospital. VS,Anabele, I+O VS, Issacbone, I+O Laboratory Tests 05/19/21 18:41 05/20/21 09:04 Vital Signs Date Time Temp Pulse Resp B/P (MAP) Pulse Ox O2 Delivery O2 Flow Rate FiO2 05/19/21 20:34 99.4 16 95 124/52 (76) Room Air 05/19/21 14:18 95 2.0 I&O- Last 24 Hours up to 6 AM 05/20/21 05:59 Intake Total 1570 ml Output Total 700 ml Balance 870 ml STEPHEN TILLMAN MD May 20, 2021 09:57
[2021-05-20] MEDS: ASCORBIC ACID 500 MG TAB PO SCH (10:12)
[2021-05-20] MEDS: DOCUSATE SODIUM 100MG CAPSULE PO SCH ×2 (10:12→21:00)
[2021-05-20] MEDS: **hydrALAZINE HCL** 25 MG TAB PO SCH (10:12)
[2021-05-20] MEDS: SENNA 8.6 MG TAB (SENOKOT) PO PRN (10:12)
[2021-05-20] MEDS: ceFAZolin SOD 2 GM in IV 1 EA IV SCH ×2 (10:12→21:52)
[2021-05-20] MEDS: rifAMPin 150MG CAPSULE PO SCH ×2 (10:13→21:52)
[2021-05-20] MEDS: GABAPENTIN 300 MG CAP PO SCH ×2 (10:13→21:54)
[2021-05-20] MEDS: FUROSEMIDE 20 MG TAB PO SCH (10:13)
[2021-05-20] MEDS: CALCITRIOL 0.25 MCG CAP (S0169) PO SCH (10:13)
[2021-05-20] MEDS: ASPIRIN 81MG ENTERIC TABLET PO SCH ×2 (10:13→21:52)
[2021-05-20] MEDS: FERROUS SULFATE 325MG TAB PO SCH (10:13)
[2021-05-20] MEDS: CYANOCOBALAMIN 500 MCG TAB PO SCH (10:14)
[2021-05-20] MEDS: atenoloL 25 MG TAB PO SCH (10:14)
[2021-05-20 10:48] LABS: ERYTHROCYTE SEDIMENTATION RATE 109 mm/hr (0-20)
[2021-05-20 14:00] VITALS: BP 144/60
[2021-05-20] MEDS: SODIUM CHLORIDE 0.9% INJ 10 ML SYR IV SCH (17:51)
--- NOTE | 2021-05-20 20:55 | IPNPDOC ---
Date Seen The patient was seen on 05/20/21. Progress Note SUBJECTIVE: Seen examined patient at bedside. Overall no acute events overnight. Alert slept better today. Right knee incision dressing was changed by Dr. Hernández. Placed another Prevena dressing. Wound VAC on a 25 mmHg setting. Range of motion between 0 and 30 degrees only. OBJECTIVE PHYSICAL EXAMINATION: VITAL SIGNS: please see below General: NAD, comfortable HEENT: PERRLA, EOMI, sclerae clear Neck: supple, normal ROM, no JVD Respiratory: lungs CTAB, no wheeze, no rales, no crackles CVS: RRR, normal S1, S2, no murmurs Abdo: soft, no masses, no hepatosplenomegaly, BS+, no rebound tenderness Extremities: no edema, pulses 2+ MSK: Right knee Prevena dressing in place Neuro: no focal neuro deficits, moving all 4 extremities, CN2-12 intact. Strength 5/5 in all 4 extremities. No nystagmus. Psych: calm, cooperative, AAO x 3 LABORATORY DATA, IMAGING STUDIES, MICROBIOLOGY: Please see below. DVT prophylaxis ordered?: SCDs, TEDs. ASSESSMENT AND PLAN: Mr. 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 Orthopedic surgery was consulted. Orthopedic surgery took patient to the OR for I&D washout on 05/13/2021. Infectious disease consulted, planning for antibiotics until 06/24/2021 followed by lifelong chronic suppressive therapy. PROBLEMS: 1. 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 Hypertension Blood pressure appropriately controlled Continue atenolol and hydralazine 3. Chronic neuropathy Continue gabapentin 4. CKD stage 3 Baseline creatinine around 1.8 Close to baseline Continue supportive care 5. Macrocytic anemia Postsurgically, patient hemoglobin dropped to 7.2. Patient was given 2 units of packed red blood cells Hemoglobin responded appropriately Continue to monitor 6. Exposure to Covid Patient exposed to staff member positive for Covid Patient currently on quarantine 7. DVT prophylaxis SCDs and teds Disposition: Pending physical therapy reeval. Either home with services and home IV or rehab/subacute rehab VS, I&O, 24H, [place] Vital Signs/I&O Vital Signs Date Time Temp Pulse Resp B/P (MAP) Pulse Ox O2 Delivery O2 Flow Rate FiO2 05/20/21 14:00 98.2 65 18 144/60 (88) 98 Room Air 05/19/21 14:18 2.0 I&O- Last 24 Hours up to 6 AM 05/20/21 06:00 Intake Total 1420 ml Output Total 650 ml Balance 770 ml Laboratory Data 24H LABS Laboratory Tests 2 05/20/21 09:04: Nucleated Red Blood Cells % (auto) 0.0, Erythrocyte Sedimentation Rate 109H, Anion Gap 7L, Glomerular Filtration Rate 38.0L, Calcium Level 10.6H, C-Reactive Protein, Quantitative 3.45H CBC/BMP Laboratory Tests 05/20/21 09:04 Microbiology Microbiology 05/13/21 Fungal Smear, Received Pending 05/13/21 Fungal Culture, Received Pending 05/13/21 Gram Stain - Final, Complete 05/13/21 Wound Culture - Final, Complete Staphylococcus Aureus 05/13/21 Anaerobic Culture - Final, Complete 05/13/21 Fungal Smear, Received Pending 05/13/21 Fungal Culture, Received Pending 05/13/21 Gram Stain - Final, Complete 05/13/21 Wound Culture - Final, Complete Staphylococcus Aureus 05/13/21 Anaerobic Culture - Final, Complete 05/13/21 Fungal Smear, Received Pending 05/13/21 Fungal Culture, Received Pending 05/13/21 Gram Stain - Final, Complete 05/13/21 Neisseria gonorrhoeae Culture - Final, Complete 05/13/21 Gram Stain - Final, Complete 05/13/21 Wound Culture - Final, Complete Staphylococcus Aureus 05/13/21 Anaerobic Culture - Final, Complete NARENDRA PAL MD May 20, 2021 20:55
[2021-05-20] MEDS: ATORVASTATIN 20 MG TAB PO SCH (21:54)
[2021-05-20 22:00] VITALS: BP 141/68
[2021-05-20] MEDS: SODIUM CHLORIDE 0.9% INJ 10 ML SYR IV PRN (23:45)
[2021-05-21] MEDS: ACETAMINOPHEN TAB 650MG DOSE (2X325MG) PO SCH ×4 (00:02→18:20)
[2021-05-21] MEDS: SODIUM CHLORIDE 0.9% INJ 10 ML SYR IV SCH ×2 (06:43→18:20)
[2021-05-21 06:50] VITALS: BP 101/65
[2021-05-21 07:30] LABS: HEMATOCRIT 30.8 % (42.0-52.0); HEMOGLOBIN 9.9 g/dl (13.5-17.5); MEAN CORPUSCULAR HEMOGLOBIN 30.8 pg (27.0-33.0); MEAN CORPUSCULAR HGB CONC 32.1 g/dl (32.0-36.5); PLATELET COUNT, AUTOMATED 378 10^3/uL (150-450); RED BLOOD COUNT 3.21 10^6/uL (4.30-6.10); WHITE BLOOD COUNT 7.4 10^3/uL (4.0-10.0)
[2021-05-21 07:47] LABS: CREATININE FOR GFR 1.79 MG/DL (0.70-1.30); GLOMERULAR FILTRATION RATE 39.7 (>42); POTASSIUM SERUM 3.4 MEQ/L (3.5-5.1)
[2021-05-21] MEDS: ceFAZolin SOD 2 GM in IV 1 EA IV SCH ×2 (09:44→22:00)
[2021-05-21] MEDS: GABAPENTIN 300 MG CAP PO SCH ×2 (09:44→20:49)
[2021-05-21] MEDS: CYANOCOBALAMIN 500 MCG TAB PO SCH (09:44)
[2021-05-21] MEDS: DOCUSATE SODIUM 100MG CAPSULE PO SCH ×2 (09:44→20:49)
[2021-05-21] MEDS: FERROUS SULFATE 325MG TAB PO SCH (09:44)
[2021-05-21] MEDS: ASCORBIC ACID 500 MG TAB PO SCH (09:44)
[2021-05-21] MEDS: rifAMPin 150MG CAPSULE PO SCH ×2 (09:44→20:50)
[2021-05-21] MEDS: FUROSEMIDE 20 MG TAB PO SCH (09:44)
[2021-05-21] MEDS: ASPIRIN 81MG ENTERIC TABLET PO SCH ×2 (09:44→20:49)
[2021-05-21] MEDS: CALCITRIOL 0.25 MCG CAP (S0169) PO SCH (09:44)
[2021-05-21] MEDS: **hydrALAZINE HCL** 25 MG TAB PO SCH (09:45)
[2021-05-21] MEDS: atenoloL 25 MG TAB PO SCH (09:45)
--- NOTE | 2021-05-21 09:55 | IPN ---
PROGRESS NOTE DATE: 05/20/2021 SUBJECTIVE: The patient is doing well. He is status post right knee arthroplasty washout and liner change on 05/12. He denies any complaint. He has nausea, vomiting, or diarrhea, no fevers or chills. He is doing better than yesterday with less shaking and weakness. The patient is receiving a blood transfusion. He had two large areas of bleeding and drainage on his dressing and therefore Dr. Hernández reapplied the Prevena dressing to the right knee with 35 cm dressing and a wound V.A.C. of 125 mm. The patient denies any pain. He states he can bend his knee better to 90 degrees. He was told by Dr. Hernández not to bend it more than 30 degrees. OBJECTIVE: Vital signs: Temperature 98.2, pulse 65, respirations 18, blood pressure 144/60, O2 saturation 98% on room air. Heart: Normal S1, S2 with a systolic ejection murmur 2/6. Lungs are clear. No wheezes, rales or rhonchi. Abdomen is soft, nontender, no hepatosplenomegaly. Decubitus on both buttocks, superficial, grade 1. No bone exposure. Extremities: No cyanosis, clubbing, or edema of the left side. Right side has +1 pitting edema with area of erythema below the knee medially which is unchanged. Range of motion 90 degrees. [address] dressing in place. The wound was not examined under the Prevena. Sodium 143, potassium 3.3, chloride 110, bicarb 26, BUN 21.86, glucose 114, CRP from 20.6. White count 6.7, hemoglobin 10.6, hematocrit 109. From 05/13 knee MSSA. Fungal cultures are pending. Gonorrhea cultures negative ASSESSMENT: PJI knee MSSA SP debridement Right knee with liner exchange. The patient is on IV cefazolin. 2 gm every 8 hours and rifampin 300 mg by mouth twice a day. The patient will be treated for a minimal of six weeks of IV antibiotics suppressive therapy lifelong with duricef 500 twice a day. PLAN: Continue with IV cefazolin 2 gm every 8 hours with by mouth rifampin 300 mg p.o. twice daily for a total of six weeks until June 24. The patient does not want to go to [facility] for rehab and he feels he can do it at home with the help of his . She has six weeks of antibiotics previously. KURT
--- NOTE | 2021-05-21 13:32 | IPNPDOC ---
Text Note Date of Service The patient was seen on 05/21/21. NOTE POD 9 right total knee arthroplasty periprosthetic infection with washout and I&D liner change. Patient is resting in bed, states that he has been re-evaluated by physical the rapy and is cleared for discharge home. He anticipates this to take place tomorrow. The patient's nurse states that there is a request in for the PICC line to be evaluated by hospitalist service before discharge. The Prevena remains in place with no signs of bleeding. There was a small area of moisture noted at the distal end of the dressing though the tubing and canister reservoir remain clean and dry. He was instructed that the Prevena should remain in place until he is seen in the office next week. VS,Fishbone, I+O VS, Fishbone, I+O Laboratory Tests 05/21/21 06:43 05/21/21 06:44 Vital Signs Date Time Temp Pulse Resp B/P (MAP) Pulse Ox O2 Delivery O2 Flow Rate FiO2 05/21/21 09:45 110/68 05/21/21 09:45 66 05/21/21 06:50 98.3 16 98 Room Air 05/19/21 14:18 2.0 I&O- Last 24 Hours up to 6 AM 05/21/21 06:00 Intake Total 1350 ml Output Total 200 ml Balance 1150 ml ERIC DUMONT May 21, 2021 13:20
[2021-05-21 13:49] VITALS: BP 130/62
[2021-05-21] MEDS: ATORVASTATIN 20 MG TAB PO SCH (20:50)
--- NOTE | 2021-05-21 20:56 | IPNPDOC ---
Date Seen The patient was seen on 05/21/21. Progress Note SUBJECTIVE: Seen examined patient at bedside. Overall no acute events overnight. Alert slept better today. Right knee incision dressing was changed by Dr. Hernández. Placed another Prevena dressing. Wound VAC on a 25 mmHg setting. Range of motion between 0 and 30 degrees only. OBJECTIVE PHYSICAL EXAMINATION: VITAL SIGNS: please see below General: NAD, comfortable HEENT: PERRLA, EOMI, sclerae clear Neck: supple, normal ROM, no JVD Respiratory: lungs CTAB, no wheeze, no rales, no crackles CVS: RRR, normal S1, S2, no murmurs Abdo: soft, no masses, no hepatosplenomegaly, BS+, no rebound tenderness Extremities: no edema, pulses 2+ MSK: Right knee Prevena dressing in place Neuro: no focal neuro deficits, moving all 4 extremities, CN2-12 intact. Strength 5/5 in all 4 extremities. No nystagmus. Psych: calm, cooperative, AAO x 3 LABORATORY DATA, IMAGING STUDIES, MICROBIOLOGY: Please see below. DVT prophylaxis ordered?: SCDs, TEDs. ASSESSMENT AND PLAN: Mr. 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 Orthopedic surgery was consulted. Orthopedic surgery took patient to the OR for I&D washout on 05/13/2021. Infectious disease consulted, planning for antibiotics until 06/24/2021 followed by lifelong chronic suppressive therapy. PROBLEMS: 1. 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 Hypertension Blood pressure appropriately controlled Continue atenolol and hydralazine 3. Chronic neuropathy Continue gabapentin 4. CKD stage 3 Baseline creatinine around 1.8 Close to baseline Continue supportive care 5. Macrocytic anemia Postsurgically, patient hemoglobin dropped to 7.2. Patient was given 2 units of packed red blood cells Hemoglobin responded appropriately Continue to monitor 6. Exposure to Covid Patient exposed to staff member positive for Covid Patient currently on quarantine 7. DVT prophylaxis SCDs and teds Disposition: Pending physical therapy reeval. Either home with services and home IV or rehab/subacute rehab VS, I&O, 24H, Fishbone Vital Signs/I&O Vital Signs Date Time Temp Pulse Resp B/P (MAP) Pulse Ox O2 Delivery O2 Flow Rate FiO2 05/21/21 13:49 98.1 88 18 130/62 (84) 98 Room Air 05/19/21 14:18 2.0 I&O- Last 24 Hours up to 6 AM 05/21/21 06:00 Intake Total 1350 ml Output Total 200 ml Balance 1150 ml Laboratory Data 24H LABS Laboratory Tests 2 05/21/21 06:43: Anion Gap 7L, Glomerular Filtration Rate 39.7L, Calcium Level 10.0 05/21/21 06:44: Nucleated Red Blood Cells % (auto) 0.0 CBC/BMP Laboratory Tests 05/21/21 06:43 05/21/21 06:44 Microbiology Microbiology 05/13/21 Fungal Smear, Received Pending 05/13/21 Fungal Culture, Received Pending 05/13/21 Gram Stain - Final, Complete 05/13/21 Wound Culture - Final, Complete Staphylococcus Aureus 05/13/21 Anaerobic Culture - Final, Complete 05/13/21 Fungal Smear, Received Pending 05/13/21 Fungal Culture, Received Pending 05/13/21 Gram Stain - Final, Complete 05/13/21 Wound Culture - Final, Complete Staphylococcus Aureus 05/13/21 Anaerobic Culture - Final, Complete 05/13/21 Fungal Smear, Received Pending 05/13/21 Fungal Culture, Received Pending 05/13/21 Gram Stain - Final, Complete 05/13/21 Neisseria gonorrhoeae Culture - Final, Complete 05/13/21 Gram Stain - Final, Complete 05/13/21 Wound Culture - Final, Complete Staphylococcus Aureus 05/13/21 Anaerobic Culture - Final, Complete NARENDRA PAL MD May 21, 2021 20:56
[2021-05-21] MEDS ORDERED: POTASSIUM CHLORIDE 10MEQ SR TABLET PO ONE (21:00)
[2021-05-21 22:00] VITALS: BP 121/65
[2021-05-22] MEDS: ACETAMINOPHEN TAB 650MG DOSE (2X325MG) PO SCH ×3 (00:41→12:00)
[2021-05-22 06:00] VITALS: BP 119/65
[2021-05-22] MEDS: SODIUM CHLORIDE 0.9% INJ 10 ML SYR IV SCH (06:00)
[2021-05-22 08:59] LABS: BASO % 0.4 % (0.0-1.0); EOS # 0.5 10^3/uL (0.0-0.5); EOS % 7.6 % (0.0-3.0); HEMATOCRIT 33.9 % (42.0-52.0); HEMOGLOBIN 10.7 g/dl (13.5-17.5); LYMPH # 0.9 10^3/uL (1.5-5.0); LYMPH % 13.4 % (24.0-44.0); MEAN CORPUSCULAR HGB CONC 31.6 g/dl (32.0-36.5); MEAN CORPUSCULAR VOLUME 98.3 fl (80.0-96.0); MONO # 0.7 10^3/uL (0.0-0.8); MONO % 9.3 % (2.0-8.0); NEUTROPHILS # 4.8 10^3/uL (1.5-8.5); NEUTROPHILS % 68.4 % (36.0-66.0); PLATELET COUNT, AUTOMATED 320 10^3/uL (150-450); RED BLOOD COUNT 3.45 10^6/uL (4.30-6.10)
[2021-05-22 09:17] LABS: ALBUMIN 2.1 GM/DL (3.2-5.2); BILIRUBIN,TOTAL 0.2 MG/DL (0.2-1.0); CALCIUM LEVEL 9.4 MG/DL (8.8-10.2); CREATININE FOR GFR 1.73 MG/DL (0.70-1.30); GLOMERULAR FILTRATION RATE 41.3 (>42); MAGNESIUM LEVEL 1.7 MG/DL (1.8-2.4); POTASSIUM SERUM 3.7 MEQ/L (3.5-5.1); TOTAL PROTEIN 6.3 GM/DL (6.4-8.2)
[2021-05-22] MEDS: ASCORBIC ACID 500 MG TAB PO SCH (09:20)
[2021-05-22] MEDS: rifAMPin 150MG CAPSULE PO SCH (09:20)
[2021-05-22] MEDS: FERROUS SULFATE 325MG TAB PO SCH (09:20)
[2021-05-22] MEDS: DOCUSATE SODIUM 100MG CAPSULE PO SCH (09:20)
[2021-05-22] MEDS: CALCITRIOL 0.25 MCG CAP (S0169) PO SCH (09:20)
[2021-05-22 09:21] VITALS: BP 119/65
[2021-05-22] MEDS: atenoloL 25 MG TAB PO SCH (09:21)
[2021-05-22] MEDS: CYANOCOBALAMIN 500 MCG TAB PO SCH (09:21)
[2021-05-22] MEDS: GABAPENTIN 300 MG CAP PO SCH (09:21)
[2021-05-22] MEDS: FUROSEMIDE 20 MG TAB PO SCH (09:21)
[2021-05-22] MEDS: **hydrALAZINE HCL** 25 MG TAB PO SCH (09:21)
[2021-05-22] MEDS: ASPIRIN 81MG ENTERIC TABLET PO SCH (09:21)
[2021-05-22] MEDS: ceFAZolin SOD 2 GM in IV 1 EA IV SCH (10:00)
[2021-05-22 11:22] VITALS: BP 129/60
[2021-05-22] MEDS ORDERED: LIDOCAINE 1% MDV 20ML VIAL As Ordered ONE (11:25)
[2021-05-22] MEDS ORDERED: TRAM50TA2 PO (13:13)
[2021-05-22] MEDS ORDERED: BISAC5TA PO (13:13)
[2021-05-22] MEDS ORDERED: MAGN400T2 PO (13:16)
[2021-05-22] MEDS ORDERED: FERR1TAB8 PO (13:16)
[2021-05-22] MEDS ORDERED: ASPI-551 PO (13:18)
--- NOTE | 2021-05-22 14:58 | DS.PDOC ---
Discharge Summary General Date of Admission May 09, 2021 at 13:31 Date of Discharge 05/22/21 Discharge Summary PROCEDURES PERFORMED DURING STAY: [None]. ADMITTING DIAGNOSES: 1. . DISCHARGE DIAGNOSES: 1. . COMPLICATIONS/CHIEF COMPLAINT: Infection Of Prosthetic R Knee Joint. HISTORY OF PRESENT ILLNESS: . HOSPITAL COURSE: . DISCHARGE MEDICATIONS: Please see below. ALLERGIES: Please see below. PHYSICAL EXAMINATION ON DISCHARGE: VITAL SIGNS: Please see below. GENERAL: HEENT: NECK: CARDIOVASCULAR EXAMINATION: RESPIRATORY EXAMINATION: ABDOMINAL EXAMINATION: EXTREMITIES: SKIN: NEUROLOGICAL EXAMINATION: PSYCHIATRIC EXAMINATION: LABORATORY DATA: Please see below. IMAGING: PROGNOSIS: ACTIVITY: [As tolerated]. DIET: DISCHARGE PLAN: DISPOSITION: . DISCHARGE INSTRUCTIONS: 1. . ITEMS TO FOLLOWUP ON ON OUTPATIENT: 1. . DISCHARGE CONDITION: [Stable]. TIME SPENT ON DISCHARGE: minutes. Vital Signs/I&Os Vital Signs Date Time Temp Pulse Resp B/P (MAP) Pulse Ox O2 Delivery O2 Flow Rate FiO2 05/22/21 11:22 98.3 62 18 96 Room Air 05/22/21 09:21 119/65 05/19/21 14:18 2.0 I&O- Last 24 Hours up to 6 AM 05/22/21 06:00 Intake Total 1420 ml Output Total 450 ml Balance 970 ml Laboratory Data Labs 24H Laboratory Tests 2 05/22/21 08:33: Immature Granulocyte % (Auto) 0.9, Neutrophils (%) (Auto) 68.4H, Lymphocytes (%) (Auto) 13.4L, Monocytes (%) (Auto) 9.3H, Eosinophils (%) (Auto) 7.6H, Basophils (%) (Auto) 0.4, Neutrophils # (Auto) 4.8, Lymphocytes # (Auto) 0.9L, Monocytes # (Auto) 0.7, Eosinophils # (Auto) 0.5, Basophils # (Auto) 0.0, Nucleated Red Blood Cells % (auto) 0.0, Anion Gap 5L, Glomerular Filtration Rate 41.3L, Calcium Level 9.4, Magnesium Level 1.7L, Total Bilirubin 0.2, Aspartate Amino Transf (AST/SGOT) 23, Alanine Aminotransferase (ALT/SGPT) 8L, Alkaline Phosphatase 117, Total Protein 6.3L, Albumin 2.1L, Albumin/Globulin Ratio 0.5 CBC/BMP Laboratory Tests 10/28/21 08:33 Microbiology Microbiology 05/13/21 Fungal Smear, Received Pending 05/13/21 Fungal Culture, Received Pending 05/13/21 Gram Stain - Final, Complete 05/13/21 Wound Culture - Final, Complete Staphylococcus Aureus 05/13/21 Anaerobic Culture - Final, Complete 05/13/21 Fungal Smear, Received Pending 05/13/21 Fungal Culture, Received Pending 05/13/21 Gram Stain - Final, Complete 05/13/21 Wound Culture - Final, Complete Staphylococcus Aureus 05/13/21 Anaerobic Culture - Final, Complete 05/13/21 Fungal Smear, Received Pending 05/13/21 Fungal Culture, Received Pending 05/13/21 Gram Stain - Final, Complete 05/13/21 Neisseria gonorrhoeae Culture - Final, Complete 05/13/21 Gram Stain - Final, Complete 05/13/21 Wound Culture - Final, Complete Staphylococcus Aureus 05/13/21 Anaerobic Culture - Final, Complete Discharge Medications Scheduled Ascorbic Acid (Vitamin C) 500 Mg Tablet, 1 TAB PO DAILY, (Reported) Aspirin (Aspirin EC) 81 Mg Tablet.dr, 81 MG PO BID Atenolol (Atenolol) 25 Mg Tab, 25 MG PO DAILY, (Reported) Atorvastatin Calcium (Atorvastatin Calcium) 40 Mg Tablet, 40 MG PO QHS, (Reported) Calcitriol (Rocaltrol) 0.25 Mcg Capsule, 0.25 MCG PO DAILY, (Reported) Cyanocobalamin (Vitamin B-12) (Vitamin B-12) 1,000 Mcg Tablet, 1,000 MCG PO DAILY, (Reported) Ferrous Sulfate (Ferrous Sulfate) 325 Mg Tablet, 325 MG PO DAILY Furosemide (Furosemide) 20 Mg Tablet, 20 MG PO DAILY, (Reported) Gabapentin (Gabapentin) 800 Mg Tab, 800 MG PO BID, (Reported) Hydralazine HCl (Hydralazine HCl) 25 Mg Tablet, 25 MG PO DAILY, (Reported) Magnesium Oxide (Magnesium Oxide) 400 Mg Tablet, 1 TAB PO BID for constipation Multivitamin (Multivitamin) 1 Each Tablet, 1 TAB PO DAILY, (Reported) Rifampin (Rifampin) 300 Mg Capsule, 300 MG PO BID Scheduled PRN Acetaminophen (Acetaminophen) 500 Mg Tablet, 1,000 MG PO Q6H PRN for PAIN / FEVER, (Reported) Bisacodyl (Bisacodyl) 5 Mg Tablet.dr, 10 MG PO DAILYPRN PRN for CONSTIPATION Tramadol HCl (Tramadol HCl) 50 Mg Tablet, 50 MG PO Q4HP PRN for MILD PAIN (PS 1-4) Allergies Coded Allergies: Sulfa (Sulfonamide Antibiotics) (Verified Adverse Reaction, Mild, 05/09/21) Per Dr Umana he stated minimal use due to kidneys NARENDRA PAL MD May 22, 2021 14:58
--- NOTE | 2021-05-22 17:27 | REP ---
PROCEDURE NAME: PICC LINE INSERTION W/SITERITE CLINICAL INFORMATION: please re-eval picc, appears to be leaking, 2 cm extruded.. COMPARISON: None. PROCEDURE DESCRIPTION: The procedure was performed by GENNY Ellsworth, under the direct supervision of Dr. Prabhakar. The risks and benefits of the procedure were explained to the patient and an informed consent was obtained both verbally and written. Directly prior to the start of the procedure a formal time-out was completed in the procedure room. The skin was prepped and draped in sterile fashion. A guidewire was placed through the existing right-sided PICC line. The old PICC line was removed over the wire. A 5 [place]er vessel dilator was placed over the wire and advanced into the vessel. A 4.5 [place] single lumen catheter was cut to a length of 37 cm. The dilator was removed and the catheter was inserted over the guidewire with the tip ending at the level of the SVC. The peel-away sheath was removed and the catheter was flushed with heparinized saline as per hospital protocol. The catheter was affixed to the skin and a sterile dressing was applied. The patient tolerated the procedure well and there were no immediate complications. CONCLUSION: Technically successful right PICC line exchange. 0.2 minutes of fluoroscopy time was utilized for this procedure. Some fluoroscopic images are performed with last image hold technology. These images require no additional radiation. <Electronically signed by Carito Tomlinson > 05/22/21 1220 <Electronically signed by Juan Carlos Prabhakar > 05/22/21 [id number]
== END 2021-05-22 17:20 | disposition home health service (06) | DRG 467 ==
LOC: M ED 10:05 → M ED INP 13:31 → ENRESERV 17:04 → M MS5PR 21:10
PROVIDERS: ADMIT General Practice; ATTEND Internal Medicine
PROC: 0YB Anatomical Regions, Lower Extremities, Excision (ICD-10-PCS; 2021-05-09)
PROC: 02HV33Z Insertion of Infusion Device into Superior Vena Cava, Percutaneous Approach (ICD-10-PCS; 2021-05-12)
PROC: 0SRV0J9 Replacement of Right Knee Joint, Tibial Surface with Synthetic Substitute, Cemented, Open Approach (ICD-10-PCS; 2021-05-13)
PROC: 0SPV0JZ Removal of Synthetic Substitute from Right Knee Joint, Tibial Surface, Open Approach (ICD-10-PCS; 2021-05-13)
PROC: 0SBC0ZZ Excision of Right Knee Joint, Open Approach (ICD-10-PCS; 2021-05-13)
PROC: 0LQQ0ZZ Repair Right Knee Tendon, Open Approach (ICD-10-PCS; 2021-05-13)
PROC: [UNRECOGNIZED PROCEDURE] (2021-05-13)
PROC: 30233N1 Transfusion of Nonautologous Red Blood Cells into Peripheral Vein, Percutaneous Approach (ICD-10-PCS; 2021-05-13)
PROC: 0JDN0ZZ Extraction of Right Lower Leg Subcutaneous Tissue and Fascia, Open Approach (ICD-10-PCS; principal; 2021-05-13 14:30)
PROC: 02WY33Z Revision of Infusion Device in Great Vessel, Percutaneous Approach (ICD-10-PCS; 2021-05-22)
DX: T84.53XA Infection and inflammatory reaction due to internal right knee prosthesis, initial encounter (principal); D62 Acute posthemorrhagic anemia; N18.30 Chronic kidney disease, stage 3 unspecified; I35.8 Other nonrheumatic aortic valve disorders; D50.9 Iron deficiency anemia, unspecified; I12.9 Hypertensive chronic kidney disease with stage 1 through stage 4 chronic kidney disease, or unspecified chronic kidney disease; M51.36 Other intervertebral disc degeneration, lumbar region; M81.0 Age-related osteoporosis without current pathological fracture; E78.5 Hyperlipidemia, unspecified; Z96.653 Presence of artificial knee joint, bilateral; Z98.1 Arthrodesis status; Z20.822 Contact with and (suspected) exposure to COVID-19; Z79.899 Other long term (current) drug therapy; Z88.2 Allergy status to sulfonamides; I25.10 Atherosclerotic heart disease of native coronary artery without angina pectoris; G62.9 Polyneuropathy, unspecified; D63.1 Anemia in chronic kidney disease; B95.61 Methicillin susceptible Staphylococcus aureus infection as the cause of diseases classified elsewhere; M21.371 Foot drop, right foot

== ENCOUNTER → 2021-05-26 | Outpatient (REF) | payer MEDICARE ==
[~2021-05-26] MED LIST changes: +ATOR40TA75 PO; +BISAC5TA PO; +C 50TAB PO; +FURO20TA2 PO; +MAGN400T2 PO; +MULT-90 PO; +RIFA30CA PO
[2021-05-26 14:42] LABS: HEMATOCRIT 29.9 % (42.0-52.0); HEMOGLOBIN 9.5 g/dl (13.5-17.5); MEAN CORPUSCULAR HGB CONC 31.8 g/dl (32.0-36.5); MEAN CORPUSCULAR VOLUME 97.7 fl (80.0-96.0); PLATELET COUNT, AUTOMATED 334 10^3/uL (150-450); RED BLOOD COUNT 3.06 10^6/uL (4.30-6.10)
[2021-05-26 15:14] LABS: C REACTIVE PROTEIN QUANTITATIV 6.38 MG/DL (0.00-0.30); CALCIUM LEVEL 8.9 MG/DL (8.8-10.2); CREATININE FOR GFR 2.17 MG/DL (0.70-1.30); GLOMERULAR FILTRATION RATE 31.8 (>42); POTASSIUM SERUM 4.2 MEQ/L (3.5-5.1)
[2021-05-26 17:01] LABS: ERYTHROCYTE SEDIMENTATION RATE 106 mm/hr (0-20)
== END ==
LOC: M SHH 14:17
PROVIDERS: ATTEND Internal Medicine Infectious Disease
DX: A49.01 Methicillin susceptible Staphylococcus aureus infection, unspecified site (principal); T84.53XA Infection and inflammatory reaction due to internal right knee prosthesis, initial encounter

== ENCOUNTER → 2021-05-28 | Outpatient (CLI) | payer MEDICARE ==
--- NOTE | 2021-05-28 12:42 | REP ---
INDICATION: RT TKA. 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 There is no evidence of an acute osseous abnormality. IMPRESSION: No significant change <Electronically signed by Marciano Mac > 05/28/21 [id number]
== END ==
LOC: M SOG 09:28
PROVIDERS: ATTEND Orthopaedic Surgery Adult Reconstructive Orthopaedic Surgery
DX: Z96.651 Presence of right artificial knee joint (principal)

== ENCOUNTER → 2021-06-02 | Outpatient (CLI) | payer MEDICARE ==
[~2021-06-02] MED LIST changes: +LIDOCAINE 1% MDV 20ML VIAL As Ordered ONE
[2021-06-02 15:30] VITALS: BP 157/70
--- NOTE | 2021-06-02 17:21 | REP ---
PROCEDURE NAME: PICC LINE (FLUORO GUIDE) CLINICAL INFORMATION: LEAKING AT SITE. COMPARISON: None. PROCEDURE DESCRIPTION: The procedure was performed by GENNY Ellsworth, under the direct supervision of Dr. Prabhakar. The risks and benefits of the procedure were explained to the patient and an informed consent was obtained both verbally and written. Directly prior to the start of the procedure a formal time-out was completed in the procedure room. The patient was prepped and draped in the usual sterile fashion. A guidewire was placed through the existing single-lumen PICC line. The existing PICC line was removed over the wire. a 6 Salvadorean dilator and peel-away sheath was inserted over the guidewire. A 5.5 [place]adorean dual lumen catheter was cut to a length of 35 cm. The dilator was removed and the catheter was inserted over the guidewire with the tip ending at the level of the SVC. The peel-away sheath was removed and the catheter was flushed with heparinized saline as per hospital protocol. The catheter was affixed to the skin and a sterile dressing was applied. The patient tolerated the procedure well and there were no immediate complications. CONCLUSION: Technically successful PICC line exchange. 0.4 minutes of fluoroscopy time was utilized for this procedure. Some fluoroscopic images are performed with last image hold technology. These images require no additional radiation. <Electronically signed by Carito Tomlinson > 06/02/21 1642 <Electronically signed by Juan Carlos Prabhakar > 06/02/21 [id number]
== END ==
LOC: M IRPRO 14:21
PROVIDERS: ATTEND Internal Medicine Infectious Disease
DX: T84.59XD Infection and inflammatory reaction due to other internal joint prosthesis, subsequent encounter (principal); A49.01 Methicillin susceptible Staphylococcus aureus infection, unspecified site
CPT/HCPCS: 36584; 80048; 85027; 85652; 86140; C1751; J1642; J1644

== ENCOUNTER → 2021-06-02 | Outpatient (REF) | payer MEDICARE ==
[~2021-06-02] MED LIST changes: -LIDOCAINE 1% MDV 20ML VIAL As Ordered ONE
[2021-06-02 14:33] LABS: HEMATOCRIT 29.6 % (42.0-52.0); HEMOGLOBIN 9.3 g/dl (13.5-17.5); MEAN CORPUSCULAR HEMOGLOBIN 31.1 pg (27.0-33.0); MEAN CORPUSCULAR HGB CONC 31.4 g/dl (32.0-36.5); PLATELET COUNT, AUTOMATED 255 10^3/uL (150-450); RED BLOOD COUNT 2.99 10^6/uL (4.30-6.10); WHITE BLOOD COUNT 8.6 10^3/uL (4.0-10.0)
[2021-06-02 14:46] LABS: C REACTIVE PROTEIN QUANTITATIV 1.69 MG/DL (0.00-0.30); CALCIUM LEVEL 9.4 MG/DL (8.8-10.2); CREATININE FOR GFR 1.89 MG/DL (0.70-1.30); GLOMERULAR FILTRATION RATE 37.3 (>42); POTASSIUM SERUM 5.2 MEQ/L (3.5-5.1)
[2021-06-02 14:55] LABS: ERYTHROCYTE SEDIMENTATION RATE 106 mm/hr (0-20)
== END ==
LOC: M LAB REF 13:56
PROVIDERS: ATTEND Internal Medicine Infectious Disease
DX: A49.01 Methicillin susceptible Staphylococcus aureus infection, unspecified site (principal); T84.53XA Infection and inflammatory reaction due to internal right knee prosthesis, initial encounter

== ENCOUNTER → 2021-06-09 | Outpatient (REF) | payer MEDICARE ==
[2021-06-09 17:32] LABS: HEMATOCRIT 29.5 % (42.0-52.0); HEMOGLOBIN 9.4 g/dl (13.5-17.5); MEAN CORPUSCULAR HEMOGLOBIN 31.9 pg (27.0-33.0); MEAN CORPUSCULAR HGB CONC 31.9 g/dl (32.0-36.5); PLATELET COUNT, AUTOMATED 178 10^3/uL (150-450); RED BLOOD COUNT 2.95 10^6/uL (4.30-6.10); WHITE BLOOD COUNT 5.9 10^3/uL (4.0-10.0)
[2021-06-09 18:25] LABS: C REACTIVE PROTEIN QUANTITATIV 0.8 MG/DL (0.00-0.30); CALCIUM LEVEL 8.9 MG/DL (8.8-10.2); CREATININE FOR GFR 2.08 MG/DL (0.70-1.30); GLOMERULAR FILTRATION RATE 33.4 (>42); POTASSIUM SERUM 4.1 MEQ/L (3.5-5.1)
[2021-06-09 18:54] LABS: ERYTHROCYTE SEDIMENTATION RATE 81 mm/hr (0-20)
== END ==
LOC: M LAB REF 16:47
PROVIDERS: ATTEND Internal Medicine Infectious Disease
DX: A49.01 Methicillin susceptible Staphylococcus aureus infection, unspecified site (principal); T84.53XA Infection and inflammatory reaction due to internal right knee prosthesis, initial encounter

== ENCOUNTER → 2021-06-16 | Outpatient (REF) | payer MEDICARE ==
[2021-06-16 13:50] LABS: HEMATOCRIT 28.8 % (42.0-52.0); HEMOGLOBIN 9.2 g/dl (13.5-17.5); MEAN CORPUSCULAR HEMOGLOBIN 31.7 pg (27.0-33.0); MEAN CORPUSCULAR HGB CONC 31.9 g/dl (32.0-36.5); MEAN CORPUSCULAR VOLUME 99.3 fl (80.0-96.0); PLATELET COUNT, AUTOMATED 171 10^3/uL (150-450); WHITE BLOOD COUNT 6.3 10^3/uL (4.0-10.0)
[2021-06-16 14:21] LABS: ERYTHROCYTE SEDIMENTATION RATE 83 mm/hr (0-20)
[2021-06-16 14:23] LABS: C REACTIVE PROTEIN QUANTITATIV 1.07 MG/DL (0.00-0.30); CREATININE FOR GFR 2.32 MG/DL (0.70-1.30); GLOMERULAR FILTRATION RATE 29.4 (>42); POTASSIUM SERUM 4.6 MEQ/L (3.5-5.1)
== END ==
LOC: M SHH 13:29
PROVIDERS: ATTEND Internal Medicine Infectious Disease
DX: A49.01 Methicillin susceptible Staphylococcus aureus infection, unspecified site (principal); T84.53XA Infection and inflammatory reaction due to internal right knee prosthesis, initial encounter; Y83.1 Surgical operation with implant of artificial internal device as the cause of abnormal reaction of the patient, or of later complication, without mention of misadventure at the time of the procedure; Z96.651 Presence of right artificial knee joint

== ENCOUNTER → 2021-06-21 | Outpatient (REF) | payer MEDICARE ==
[2021-06-21 13:26] LABS: HEMATOCRIT 29.3 % (42.0-52.0); HEMOGLOBIN 9.3 g/dl (13.5-17.5); MEAN CORPUSCULAR HGB CONC 31.7 g/dl (32.0-36.5); MEAN CORPUSCULAR VOLUME 100.7 fl (80.0-96.0); PLATELET COUNT, AUTOMATED 197 10^3/uL (150-450); RED BLOOD COUNT 2.91 10^6/uL (4.30-6.10); WHITE BLOOD COUNT 5.8 10^3/uL (4.0-10.0)
[2021-06-21 13:42] LABS: C REACTIVE PROTEIN QUANTITATIV 1.08 MG/DL (0.00-0.30); CALCIUM LEVEL 8.8 MG/DL (8.8-10.2); CREATININE FOR GFR 2.31 MG/DL (0.70-1.30); GLOMERULAR FILTRATION RATE 29.6 (>42); POTASSIUM SERUM 4.6 MEQ/L (3.5-5.1)
[2021-06-21 13:47] LABS: ERYTHROCYTE SEDIMENTATION RATE 71 mm/hr (0-20)
== END ==
LOC: M SHH 13:16
PROVIDERS: ATTEND Internal Medicine Infectious Disease
DX: A49.01 Methicillin susceptible Staphylococcus aureus infection, unspecified site (principal); T84.53XA Infection and inflammatory reaction due to internal right knee prosthesis, initial encounter; Y83.1 Surgical operation with implant of artificial internal device as the cause of abnormal reaction of the patient, or of later complication, without mention of misadventure at the time of the procedure; Z96.651 Presence of right artificial knee joint

== ENCOUNTER → 2021-07-07 | Outpatient (CLI) | payer MEDICARE ==
[2021-07-07 18:38] LABS: BASO % 0.5 % (0.0-1.0); EOS # 0.4 10^3/uL (0.0-0.5); HEMATOCRIT 30.7 % (42.0-52.0); HEMOGLOBIN 9.6 g/dl (13.5-17.5); LYMPH # 1.1 10^3/uL (1.5-5.0); LYMPH % 20.7 % (24.0-44.0); MEAN CORPUSCULAR HEMOGLOBIN 31.6 pg (27.0-33.0); MEAN CORPUSCULAR HGB CONC 31.3 g/dl (32.0-36.5); MONO # 0.5 10^3/uL (0.0-0.8); MONO % 8.2 % (2.0-8.0); NEUTROPHILS # 3.4 10^3/uL (1.5-8.5); NEUTROPHILS % 62.2 % (36.0-66.0); PLATELET COUNT, AUTOMATED 173 10^3/uL (150-450); RED BLOOD COUNT 3.04 10^6/uL (4.30-6.10); WHITE BLOOD COUNT 5.5 10^3/uL (4.0-10.0)
[2021-07-07 19:51] LABS: ERYTHROCYTE SEDIMENTATION RATE 67 mm/hr (0-20)
[2021-07-07 21:25] LABS: ALBUMIN 3.3 GM/DL (3.2-5.2); BILIRUBIN,TOTAL 0.3 MG/DL (0.2-1.0); C REACTIVE PROTEIN QUANTITATIV 0.8 MG/DL (0.00-0.30); CALCIUM LEVEL 9.3 MG/DL (8.8-10.2); CREATININE FOR GFR 1.94 MG/DL (0.70-1.30); GLOMERULAR FILTRATION RATE 36.2 (>42); POTASSIUM SERUM 4.4 MEQ/L (3.5-5.1); TOTAL PROTEIN 7.1 GM/DL (6.4-8.2)
== END ==
LOC: M PLALAB 14:20
PROVIDERS: ATTEND Internal Medicine Infectious Disease
DX: T84.59XD Infection and inflammatory reaction due to other internal joint prosthesis, subsequent encounter (principal); Y83.1 Surgical operation with implant of artificial internal device as the cause of abnormal reaction of the patient, or of later complication, without mention of misadventure at the time of the procedure

== ENCOUNTER → 2021-09-30 | Outpatient (CLI) | payer MEDICARE ==
[2021-09-30 17:36] LABS: BASO % 0.6 % (0.0-1.0); EOS # 0.5 10^3/uL (0.0-0.5); EOS % 9.4 % (0.0-3.0); HEMATOCRIT 31.5 % (42.0-52.0); HEMOGLOBIN 10.4 g/dl (13.5-17.5); LYMPH # 1.1 10^3/uL (1.5-5.0); LYMPH % 21.3 % (24.0-44.0); MEAN CORPUSCULAR HEMOGLOBIN 33.1 pg (27.0-33.0); MEAN CORPUSCULAR VOLUME 100.3 fl (80.0-96.0); MONO # 0.5 10^3/uL (0.0-0.8); MONO % 8.8 % (2.0-8.0); NEUTROPHILS # 3.1 10^3/uL (1.5-8.5); NEUTROPHILS % 59.5 % (36.0-66.0); PLATELET COUNT, AUTOMATED 175 10^3/uL (150-450); RED BLOOD COUNT 3.14 10^6/uL (4.30-6.10); WHITE BLOOD COUNT 5.2 10^3/uL (4.0-10.0)
[2021-09-30 17:52] LABS: ALBUMIN 3.4 GM/DL (3.2-5.2); BILIRUBIN,TOTAL 0.2 MG/DL (0.2-1.0); C REACTIVE PROTEIN QUANTITATIV 1.19 MG/DL (0.00-0.30); CALCIUM LEVEL 8.6 MG/DL (8.8-10.2); CREATININE FOR GFR 1.95 MG/DL (0.70-1.30); POTASSIUM SERUM 4.2 MEQ/L (3.5-5.1); TOTAL PROTEIN 6.8 GM/DL (6.4-8.2)
[2021-09-30 19:40] LABS: ERYTHROCYTE SEDIMENTATION RATE 47 mm/hr (0-20)
== END ==
LOC: M PLALAB 14:08
PROVIDERS: ATTEND Internal Medicine Infectious Disease
DX: T84.59XD Infection and inflammatory reaction due to other internal joint prosthesis, subsequent encounter (principal)

== ENCOUNTER → 2021-11-26 | Outpatient (CLI) | payer MEDICARE ==
[~2021-11-26] MED LIST changes: -RIFA150C2 PO; +[UNRECOGNIZED DRUG - CODE] PO
== END ==
LOC: M SOG 08:26
PROVIDERS: ATTEND Physician Assistant
DX: M25.511 Pain in right shoulder (principal); M85.811 Other specified disorders of bone density and structure, right shoulder; M19.011 Primary osteoarthritis, right shoulder

== ENCOUNTER 2021-12-02 19:40 | Inpatient (IN) | payer MEDICARE ==
[~2021-12-02] VITALS: Ht 160 cm; Wt 65.2 kg
[2021-12-02] MEDS: NS 1,000 ML IV ONE ×2 (00:10→00:45)
[2021-12-02] MEDS ORDERED: NS 1,000 ML IV ONE (20:00)
[2021-12-02] MEDS ORDERED: ACETAMINOPHEN TAB 650MG DOSE (2X325MG) PO ONE (20:00)
[2021-12-02 20:42] LABS: BASO % 0.1 % (0.0-1.0); EOS % 0.6 % (0.0-3.0); HEMATOCRIT 34.9 % (42.0-52.0); HEMOGLOBIN 11.4 g/dl (13.5-17.5); LYMPH # 0.6 10^3/uL (1.5-5.0); LYMPH % 8.7 % (24.0-44.0); MEAN CORPUSCULAR HGB CONC 32.7 g/dl (32.0-36.5); MONO # 0.8 10^3/uL (0.0-0.8); MONO % 11.4 % (2.0-8.0); NEUTROPHILS # 5.5 10^3/uL (1.5-8.5); NEUTROPHILS % 78.8 % (36.0-66.0); PLATELET COUNT, AUTOMATED 203 10^3/uL (150-450); RED BLOOD COUNT 3.56 10^6/uL (4.30-6.10)
[2021-12-02 21:08] LABS: CK-MB VALUE MASS 2.8 NG/ML (<3.6); MB/CK RELATIVE INDEX 1.6 (< OR =4)
[2021-12-02 21:09] LABS: ALBUMIN 3.1 GM/DL (3.2-5.2); BILIRUBIN,DIRECT 0.3 MG/DL (0.0-0.2); BILIRUBIN,TOTAL 0.5 MG/DL (0.2-1.0); CALCIUM LEVEL 9.5 MG/DL (8.8-10.2); CREATININE FOR GFR 2.31 MG/DL (0.70-1.30); GLOMERULAR FILTRATION RATE 29.6 (>42); TOTAL PROTEIN 7.4 GM/DL (6.4-8.2)
[2021-12-02] MEDS ORDERED: CEFA500C2 (21:32)
[2021-12-02 21:58] LABS: C REACTIVE PROTEIN QUANTITATIV 21.1 MG/DL (0.00-0.30)
[2021-12-03] MEDS ORDERED: VANCOMYCIN HCL 1,250 MG in NS 250 ML IV ONE (02:00)
[2021-12-03] MEDS ORDERED: VANCOMYCIN HCL 750 MG, VIAL MATE ADAPTER 1 EACH in NS 250 ML IV ONE (02:00)
[2021-12-03] MEDS ORDERED: VANCOMYCIN HCL 500 MG in D5W MINI-BAG PLUS 100 ML IV ONE (03:00)
[2021-12-03] MEDS ORDERED: VITMTA PO (04:31)
[2021-12-03] MEDS ORDERED: CEFA500C2 PO (04:31)
[2021-12-03] MEDS ORDERED: ASPI-161 PO (04:31)
[2021-12-03] MEDS ORDERED: FERR1TAB8 PO (04:31)
[2021-12-03] MEDS ORDERED: HOME MED LIST COMPLETE! XX SCH (04:35)
[2021-12-03] MEDS ORDERED: ACETAMINOPHEN TAB 650MG DOSE (2X325MG) PO PRN (04:35)
[2021-12-03 08:12] LABS: SOURCE, BODY FLUID RT KNEE
[2021-12-03 08:13] LABS: SYNOVIAL FLUID COLOR YELLOW (COLORLESS)
[2021-12-03 08:48] LABS: BASO % 0.1 % (0.0-1.0); EOS # 0.1 10^3/uL (0.0-0.5); EOS % 0.9 % (0.0-3.0); HEMATOCRIT 32.4 % (42.0-52.0); HEMOGLOBIN 10.5 g/dl (13.5-17.5); LYMPH # 0.7 10^3/uL (1.5-5.0); LYMPH % 9.7 % (24.0-44.0); MEAN CORPUSCULAR HEMOGLOBIN 31.8 pg (27.0-33.0); MEAN CORPUSCULAR HGB CONC 32.4 g/dl (32.0-36.5); MEAN CORPUSCULAR VOLUME 98.2 fl (80.0-96.0); MONO # 0.9 10^3/uL (0.0-0.8); MONO % 11.8 % (2.0-8.0); NEUTROPHILS # 5.8 10^3/uL (1.5-8.5); NEUTROPHILS % 76.8 % (36.0-66.0); PLATELET COUNT, AUTOMATED 182 10^3/uL (150-450); WHITE BLOOD COUNT 7.6 10^3/uL (4.0-10.0)
[2021-12-03 10:24] LABS: CALCIUM LEVEL 9.4 MG/DL (8.8-10.2); CREATININE FOR GFR 1.92 MG/DL (0.70-1.30); GLOMERULAR FILTRATION RATE 36.6 (>42)
[2021-12-03 14:30] VITALS: BP 124/56
[2021-12-03] MEDS ORDERED: ACETAMINOPHEN 500 MG TAB PO PRN (17:50)
[2021-12-03 18:00] VITALS: BP 142/73
[2021-12-03] MEDS: FERROUS SULFATE 325MG TAB PO SCH (20:25)
[2021-12-03] MEDS: GABAPENTIN 400MG CAP PO SCH (20:25)
[2021-12-03] MEDS: ATORVASTATIN 20 MG TAB PO SCH (20:25)
[2021-12-03 22:00] VITALS: BP 127/64
[2021-12-03] MEDS: VANCOMYCIN HCL 1,000 MG, VIAL MATE ADAPTER 1 EACH in NS 250 ML IV SCH (23:27)
[2021-12-04] VITALS (8 sets, daily range): BP systolic 90–131; BP diastolic 45–61
[2021-12-04] MEDS: PIPERACILLIN/TAZOBACTAM SOD 3.375 GM in D5W MINI-BAG PLUS 50 ML IV SCH ×4 (00:48→18:00)
[2021-12-04 06:23] LABS: HEMATOCRIT 29.2 % (42.0-52.0); HEMOGLOBIN 9.5 g/dl (13.5-17.5); MEAN CORPUSCULAR HEMOGLOBIN 31.9 pg (27.0-33.0); MEAN CORPUSCULAR HGB CONC 32.5 g/dl (32.0-36.5); PLATELET COUNT, AUTOMATED 186 10^3/uL (150-450); RED BLOOD COUNT 2.98 10^6/uL (4.30-6.10); WHITE BLOOD COUNT 5.2 10^3/uL (4.0-10.0)
[2021-12-04 06:47] LABS: CALCIUM LEVEL 8.8 MG/DL (8.8-10.2); CREATININE FOR GFR 1.95 MG/DL (0.70-1.30); MAGNESIUM LEVEL 2.2 MG/DL (1.8-2.4); POTASSIUM SERUM 3.8 MEQ/L (3.5-5.1)
[2021-12-04] MEDS ORDERED: ASPIRIN 81MG ENTERIC TABLET PO SCH (09:00)
[2021-12-04] MEDS: MULTIVITAMINS/MINERALS THERAP 1 TAB PO SCH (09:11)
[2021-12-04] MEDS: CYANOCOBALAMIN 500 MCG TAB PO SCH (09:11)
[2021-12-04] MEDS: atenoloL 25 MG TAB PO SCH (09:11)
[2021-12-04] MEDS: CALCITRIOL 0.25 MCG CAP (S0169) PO SCH (09:11)
[2021-12-04] MEDS: GABAPENTIN 400MG CAP PO SCH ×2 (09:11→21:30)
[2021-12-04] MEDS ORDERED: ROPIVA 125MG/EPINEPH 0.25MG/CLONID 40MCG/KETOR 15MG IN NS 50ML SYRINGE PA ONE (16:00)
[2021-12-04] MEDS ORDERED: LIDOCAINE 2% 100MG/5ML SDV (FOR ANES.) As Ordered ONE (16:31)
[2021-12-04] MEDS ORDERED: MIDAZOLAM INJ 2MG/2ML VIAL (J2250 PER 1MG) As Ordered ONE (16:31)
[2021-12-04] MEDS ORDERED: propofoL 200 MG/20 ML VIAL As Ordered ONE (16:31)
[2021-12-04] MEDS ORDERED: fentaNYL 100 MCG/2 ML INJECTION As Ordered ONE ×2 (16:32→17:49)
[2021-12-04] MEDS ORDERED: VANCOMYCIN 1000MG/20ML VIAL As Ordered ONE ×2 (16:44→18:25)
[2021-12-04] MEDS ORDERED: TRANEXAMIC ACID 100 MG/ML 10ML VIAL As Ordered ONE (16:44)
[2021-12-04] MEDS ORDERED: LACRILUBE (AKWA TEARS) OPHTH OINT 3.5 GM As Ordered ONE (17:10)
[2021-12-04] MEDS ORDERED: ePHEDrine SULFATE 25 MG/5 ML(5MG/ML) SYRINGE As Ordered ONE (17:47)
[2021-12-04] MEDS ORDERED: ONDANSETRON 4MG/2ML VIAL As Ordered ONE (17:51)
[2021-12-04] MEDS ORDERED: METOCLOPRAMIDE INJ 10MG/2ML VIAL (J2765 PER 1) As Ordered ONE (17:51)
[2021-12-04] MEDS ORDERED: dexameTHASONE 4 MG/ML 1ML VIAL (J1100 PER 1MG) As Ordered ONE (17:51)
[2021-12-04] MEDS ORDERED: ACETAMINOPHEN 1000MG 100ML IV BTL (OFIRMEV) (J0131 PER 10MG) As Ordered ONE (17:53)
[2021-12-04] MEDS ORDERED: METHYLENE BLUE 0.5% (5MG/ML) 10 ML AMP (PROVAYBLUE) As Ordered ONE (18:25)
[2021-12-04] MEDS ORDERED: ZOSYN 3.375GM VIAL As Ordered ONE (18:35)
[2021-12-04] MEDS ORDERED: DESFLURANE 240 ML INHALANT As Ordered ONE (18:44)
[2021-12-04] MEDS ORDERED: LR 1,000 ML IV SCH (20:45)
[2021-12-04] MEDS ORDERED: fentaNYL 100 MCG/2 ML INJECTION IV PRN (20:45)
[2021-12-04] MEDS ORDERED: PERCOCET 5MG/325MG TAB PO PRN (20:45)
[2021-12-04] MEDS ORDERED: ONDANSETRON 4MG/2ML VIAL IV PRN ×2 (20:45→21:00)
[2021-12-04] MEDS ORDERED: oxyCODONE 5MG TAB PO PRN ×2 (21:00)
[2021-12-04] MEDS ORDERED: traMADol 50 MG TAB PO PRN (21:00)
[2021-12-04] MEDS ORDERED: SENNA 8.6 MG TAB (SENOKOT) PO PRN (21:00)
[2021-12-04] MEDS: FERROUS SULFATE 325MG TAB PO SCH (21:30)
[2021-12-04] MEDS: ASPIRIN 81MG ENTERIC TABLET PO SCH (21:30)
[2021-12-04] MEDS: ATORVASTATIN 20 MG TAB PO SCH (21:31)
[2021-12-04] MEDS: DOCUSATE SODIUM 100MG CAPSULE PO SCH (21:31)
[2021-12-04] MEDS: LR 1,000 ML IV SCH (21:33)
[2021-12-04] MEDS: VANCOMYCIN HCL 1,000 MG, VIAL MATE ADAPTER 1 EACH in NS 250 ML IV SCH (23:13)
[2021-12-04] MEDS: ACETAMINOPHEN TAB 650MG DOSE (2X325MG) PO SCH (23:17)
[2021-12-05] MEDS: PIPERACILLIN/TAZOBACTAM SOD 3.375 GM in D5W MINI-BAG PLUS 50 ML IV SCH ×4 (00:17→18:11)
[2021-12-05] MEDS: ACETAMINOPHEN TAB 650MG DOSE (2X325MG) PO SCH ×4 (05:08→23:08)
[2021-12-05] MEDS: LR 1,000 ML IV SCH (05:11)
[2021-12-05 06:00] VITALS: BP 145/72
[2021-12-05 06:49] LABS: HEMOGLOBIN 8.9 g/dl (13.5-17.5); MEAN CORPUSCULAR HEMOGLOBIN 32.2 pg (27.0-33.0); MEAN CORPUSCULAR HGB CONC 31.8 g/dl (32.0-36.5); MEAN CORPUSCULAR VOLUME 101.4 fl (80.0-96.0); PLATELET COUNT, AUTOMATED 176 10^3/uL (150-450); RED BLOOD COUNT 2.76 10^6/uL (4.30-6.10); WHITE BLOOD COUNT 6.8 10^3/uL (4.0-10.0)
[2021-12-05 07:20] LABS: CALCIUM LEVEL 9.2 MG/DL (8.8-10.2); GLOMERULAR FILTRATION RATE 34.9 (>42); MAGNESIUM LEVEL 2.4 MG/DL (1.8-2.4); POTASSIUM SERUM 4.2 MEQ/L (3.5-5.1)
[2021-12-05] MEDS: atenoloL 25 MG TAB PO SCH ×2 (09:00→09:26)
[2021-12-05] MEDS: DOCUSATE SODIUM 100MG CAPSULE PO SCH ×2 (09:00→20:53)
[2021-12-05] MEDS: GABAPENTIN 400MG CAP PO SCH ×2 (09:25→20:53)
[2021-12-05] MEDS: ASPIRIN 81MG ENTERIC TABLET PO SCH ×2 (09:25→20:53)
[2021-12-05] MEDS: CYANOCOBALAMIN 500 MCG TAB PO SCH (09:25)
[2021-12-05] MEDS: MULTIVITAMINS/MINERALS THERAP 1 TAB PO SCH (09:25)
[2021-12-05] MEDS: CALCITRIOL 0.25 MCG CAP (S0169) PO SCH (09:26)
[2021-12-05] MEDS: FUROSEMIDE 20 MG TAB PO SCH (09:26)
[2021-12-05] MEDS: ASCORBIC ACID 500 MG TAB PO SCH (09:26)
[2021-12-05] MEDS: HEPARIN SOD (PORCINE) 5000UNITS/ML 1ML VIAL/SYRINGE SQ SCH ×2 (13:39→20:54)
[2021-12-05 14:00] VITALS: BP 116/55
[2021-12-05] MEDS: FERROUS SULFATE 325MG TAB PO SCH (20:53)
[2021-12-05] MEDS: ATORVASTATIN 20 MG TAB PO SCH (20:53)
[2021-12-05 21:32] VITALS: BP 133/70
[2021-12-05] MEDS: VANCOMYCIN HCL 1,000 MG, VIAL MATE ADAPTER 1 EACH in NS 250 ML IV SCH (23:08)
[2021-12-06] MEDS: PIPERACILLIN/TAZOBACTAM SOD 3.375 GM in D5W MINI-BAG PLUS 50 ML IV SCH ×3 (00:14→12:00)
[2021-12-06 02:00] VITALS: BP 121/60
[2021-12-06] MEDS: HEPARIN SOD (PORCINE) 5000UNITS/ML 1ML VIAL/SYRINGE SQ SCH (05:04)
[2021-12-06] MEDS: ACETAMINOPHEN TAB 650MG DOSE (2X325MG) PO SCH ×2 (05:04→11:25)
[2021-12-06 06:00] VITALS: BP 119/64
[2021-12-06 08:18] LABS: HEMATOCRIT 26.9 % (42.0-52.0); HEMOGLOBIN 8.5 g/dl (13.5-17.5); MEAN CORPUSCULAR HEMOGLOBIN 31.4 pg (27.0-33.0); MEAN CORPUSCULAR HGB CONC 31.6 g/dl (32.0-36.5); MEAN CORPUSCULAR VOLUME 99.3 fl (80.0-96.0); PLATELET COUNT, AUTOMATED 209 10^3/uL (150-450); RED BLOOD COUNT 2.71 10^6/uL (4.30-6.10); WHITE BLOOD COUNT 6.5 10^3/uL (4.0-10.0)
[2021-12-06 08:44] LABS: ERYTHROCYTE SEDIMENTATION RATE 129 mm/hr (0-20)
[2021-12-06 08:47] LABS: ALBUMIN 1.8 GM/DL (3.2-5.2); BILIRUBIN,TOTAL 0.2 MG/DL (0.2-1.0); C REACTIVE PROTEIN QUANTITATIV 13.3 MG/DL (0.00-0.30); CREATININE FOR GFR 2.02 MG/DL (0.70-1.30); GLOMERULAR FILTRATION RATE 34.5 (>42); MAGNESIUM LEVEL 2.2 MG/DL (1.8-2.4); POTASSIUM SERUM 3.6 MEQ/L (3.5-5.1); TOTAL PROTEIN 6.1 GM/DL (6.4-8.2)
[2021-12-06] MEDS: MULTIVITAMINS/MINERALS THERAP 1 TAB PO SCH (08:54)
[2021-12-06] MEDS: FUROSEMIDE 20 MG TAB PO SCH (08:54)
[2021-12-06] MEDS: ASCORBIC ACID 500 MG TAB PO SCH (08:54)
[2021-12-06] MEDS: DOCUSATE SODIUM 100MG CAPSULE PO SCH (08:54)
[2021-12-06] MEDS: CYANOCOBALAMIN 500 MCG TAB PO SCH (08:55)
[2021-12-06] MEDS: ASPIRIN 81MG ENTERIC TABLET PO SCH (08:55)
[2021-12-06] MEDS: GABAPENTIN 400MG CAP PO SCH (08:55)
[2021-12-06 08:57] VITALS: BP 139/61
[2021-12-06] MEDS: atenoloL 25 MG TAB PO SCH (08:57)
[2021-12-06] MEDS ORDERED: ENOXAPARIN 30MG/0.3ML SYRINGE (J1650 PER 10MG) SC SCH (09:00)
[2021-12-06] MEDS ORDERED: ASPI-551 PO (10:19)
[2021-12-06] MEDS ORDERED: LEVO750T13 PO (10:19)
[2021-12-06] MEDS ORDERED: OXYC-517 PO (10:19)
== END 2021-12-06 12:40 | disposition home or self-care (01) | DRG 470 ==
LOC: M ED 19:40 → EDBD 19:40 → EDSEX 19:40 → M ED INP 12-03 04:34 → ENRESERV 12-03 13:56 → M MS5PR 12-03 14:20
PROVIDERS: ADMIT Internal Medicine; ATTEND Family Medicine
PROC: 0QP Lower Bones, Removal (ICD-10-PCS; 2021-12-04)
PROC: 0SRT0J9 Replacement of Right Knee Joint, Femoral Surface with Synthetic Substitute, Cemented, Open Approach (ICD-10-PCS; principal; 2021-12-04 17:30)
DX: T84.53XA Infection and inflammatory reaction due to internal right knee prosthesis, initial encounter (principal); N18.4 Chronic kidney disease, stage 4 (severe); R78.81 Bacteremia; M00.861 Arthritis due to other bacteria, right knee; E78.00 Pure hypercholesterolemia, unspecified; Z96.653 Presence of artificial knee joint, bilateral; I12.9 Hypertensive chronic kidney disease with stage 1 through stage 4 chronic kidney disease, or unspecified chronic kidney disease; Y83.1 Surgical operation with implant of artificial internal device as the cause of abnormal reaction of the patient, or of later complication, without mention of misadventure at the time of the procedure; Z79.82 Long term (current) use of aspirin; Z79.899 Other long term (current) drug therapy; Z88.2 Allergy status to sulfonamides; I25.10 Atherosclerotic heart disease of native coronary artery without angina pectoris; D50.9 Iron deficiency anemia, unspecified; M19.90 Unspecified osteoarthritis, unspecified site; T84.031A Mechanical loosening of internal left hip prosthetic joint, initial encounter

== ENCOUNTER → 2022-01-06 | Outpatient (REF) | payer MEDICARE ==
[~2022-01-06] MED LIST changes: +CEFA500C2; +CEFA500C2 PO; +LEVO750T13 PO; +VITMTA PO
== END ==
LOC: M LAB REF 16:22
PROVIDERS: ATTEND Internal Medicine
DX: T84.59XD Infection and inflammatory reaction due to other internal joint prosthesis, subsequent encounter (principal); Y83.1 Surgical operation with implant of artificial internal device as the cause of abnormal reaction of the patient, or of later complication, without mention of misadventure at the time of the procedure

== ENCOUNTER → 2022-01-29 | Outpatient (REF) | payer MEDICARE | LOC: M LAB REF 12:18 | PROVIDERS: ATTEND Internal Medicine | DX: T84.59XD Infection and inflammatory reaction due to other internal joint prosthesis, subsequent encounter (principal) ==

== ENCOUNTER → 2022-02-23 | Outpatient (REF) | payer MEDICARE ==
[~2022-02-23] MED LIST changes: +LEVO1TAB40 PO; -LEVO750T13 PO
[2022-02-23 17:53] LABS: PERCENT SATURATION 19.1 % (19.7-50.0)
== END ==
LOC: M LAB REF 16:43
PROVIDERS: ATTEND Nurse Practitioner Family
DX: D50.9 Iron deficiency anemia, unspecified (principal)

== ENCOUNTER → 2022-02-26 | Outpatient (CLI) | payer MEDICARE | LOC: M SOG 08:24 | PROVIDERS: ATTEND Orthopaedic Surgery Adult Reconstructive Orthopaedic Surgery | DX: T84.53XD Infection and inflammatory reaction due to internal right knee prosthesis, subsequent encounter (principal); Z96.651 Presence of right artificial knee joint ==

== ENCOUNTER → 2022-03-02 | Outpatient (REF) | payer MEDICARE | LOC: M LAB REF 16:35 | PROVIDERS: ATTEND Internal Medicine | DX: A48.8 Other specified bacterial diseases (principal) ==

== ENCOUNTER → 2022-03-16 | Outpatient (CLI) | payer MEDICARE ==
[2022-03-16 17:48] LABS: HEMATOCRIT 31.8 % (42.0-52.0); MEAN CORPUSCULAR HEMOGLOBIN 30.3 pg (27.0-33.0); MEAN CORPUSCULAR HGB CONC 31.4 g/dl (32.0-36.5); MEAN CORPUSCULAR VOLUME 96.4 fl (80.0-96.0); PLATELET COUNT, AUTOMATED 189 10^3/uL (150-450); WHITE BLOOD COUNT 6.1 10^3/uL (4.0-10.0)
[2022-03-16 18:23] LABS: ALBUMIN 3.4 GM/DL (3.2-5.2); BILIRUBIN,TOTAL 0.5 MG/DL (0.2-1.0); CALCIUM LEVEL 9.3 MG/DL (8.8-10.2); CREATININE FOR GFR 2.2 MG/DL (0.70-1.30); GLOMERULAR FILTRATION RATE 31.2 (>42); POTASSIUM SERUM 4.5 MEQ/L (3.5-5.1); TOTAL PROTEIN 7.3 GM/DL (6.4-8.2)
== END ==
LOC: M PLALAB 14:41
PROVIDERS: ATTEND Physician Assistant
DX: R10.10 Upper abdominal pain, unspecified (principal)

== ENCOUNTER → 2022-05-01 | Outpatient (REF) | payer MEDICARE | LOC: M LAB REF 16:06 | PROVIDERS: ATTEND Internal Medicine | DX: A48.8 Other specified bacterial diseases (principal) ==

== ENCOUNTER → 2022-06-03 | Outpatient (CLI) | payer MEDICARE | LOC: M SOG 08:14 | PROVIDERS: ATTEND Orthopaedic Surgery Adult Reconstructive Orthopaedic Surgery | DX: Z96.651 Presence of right artificial knee joint (principal); Z53.9 Procedure and treatment not carried out, unspecified reason ==

== ENCOUNTER → 2022-09-02 | Outpatient (CLI) | payer MEDICARE | LOC: M SOG 12:58 | PROVIDERS: ATTEND Orthopaedic Surgery Adult Reconstructive Orthopaedic Surgery | DX: Z96.651 Presence of right artificial knee joint (principal) ==

== ENCOUNTER → 2022-09-07 | Outpatient (REF) | payer MEDICARE | LOC: M LAB REF 16:01 | PROVIDERS: ATTEND Internal Medicine | DX: A48.8 Other specified bacterial diseases (principal) ==

== ENCOUNTER → 2022-10-01 | Outpatient (REF) | payer MEDICARE | LOC: M LAB REF 16:13 | PROVIDERS: ATTEND Internal Medicine | DX: L03.90 Cellulitis, unspecified (principal) ==

== ENCOUNTER → 2022-10-01 | Outpatient (CLI) | payer MEDICARE | LOC: M SOG 08:28 | PROVIDERS: ATTEND Orthopaedic Surgery Adult Reconstructive Orthopaedic Surgery | DX: M19.031 Primary osteoarthritis, right wrist (principal); M25.531 Pain in right wrist; L03.90 Cellulitis, unspecified ==

== ENCOUNTER → 2023-10-19 | Outpatient (REF) | payer MEDICARE ==
[~2023-10-19] MED LIST changes: -ASPI-161 PO; +ASPI-615 PO; +HYDR-161 PO; -HYDR10TAB PO; -HYDR25TA PO; +HYDR25TA88 PO
[2023-10-19 17:47] LABS: BACTERIA, URINE AUTO NEGATIVE (NEGATIVE); RBC, URINE AUTO 0 /HPF (0-3); SQUAMOUS EPITHELIAL CELL UR AU 0 /HPF (0-6); WBC, URINE AUTO 0 /HPF (0-3)
== END ==
LOC: M LAB REF 17:13
PROVIDERS: ATTEND Nurse Practitioner Family
DX: R31.21 Asymptomatic microscopic hematuria (principal)

== ENCOUNTER → 2023-10-26 | Outpatient (REF) | payer MEDICARE | LOC: M LAB REF 11:43 | PROVIDERS: ATTEND Internal Medicine | DX: A48.8 Other specified bacterial diseases (principal) ==

== ENCOUNTER → 2024-05-01 | Outpatient (REF) | payer MEDICARE ==
[~2024-05-01] MED LIST changes: +GABA-1635 PO; -GABA800T4 PO; +RIFA150C25 PO; -[UNRECOGNIZED DRUG - CODE] PO
== END ==
LOC: M LAB REF 13:38
PROVIDERS: ATTEND Internal Medicine
DX: A48.8 Other specified bacterial diseases (principal)

== ENCOUNTER → 2024-05-10 | Outpatient (CLI) | payer MEDICARE | LOC: M PLAIMG 08:45 | PROVIDERS: ATTEND Internal Medicine | DX: R22.1 Localized swelling, mass and lump, neck (principal); Z98.890 Other specified postprocedural states ==

== ENCOUNTER → 2024-05-22 | Outpatient (REF) | payer MEDICARE | LOC: M LAB REF 16:46 | PROVIDERS: ATTEND Internal Medicine | DX: R22.1 Localized swelling, mass and lump, neck (principal) ==

== ENCOUNTER → 2024-06-12 | Outpatient (CLI) | payer MEDICARE ==
[~2024-06-12] MED LIST changes: +LIDOCAINE 1% MDV 20ML VIAL As Ordered ONE
[2024-06-12 12:15] VITALS: TEMP 97.8
[2024-06-12 13:45] VITALS: BP 154/76; O2SAT 99
== END ==
LOC: M IRPRO 11:55
PROVIDERS: ATTEND Internal Medicine
DX: R22.1 Localized swelling, mass and lump, neck (principal)

== ENCOUNTER → 2024-10-30 | Outpatient (REF) | payer MEDICARE ==
[~2024-10-30] MED LIST changes: -LIDOCAINE 1% MDV 20ML VIAL As Ordered ONE
== END ==
LOC: M LAB REF 12:10
PROVIDERS: ATTEND Internal Medicine
DX: M54.2 Cervicalgia (principal)

== ENCOUNTER → 2025-03-08 | Outpatient (REF) | payer MEDICARE ==
[~2025-03-08] MED LIST changes: +LISI40TA10 PO; -LISI40TA4 PO
[2025-03-08 18:04] LABS: IRON (FE) 61.0 UG/DL (65-175)
[2025-03-08 18:05] LABS: PERCENT SATURATION 23.2 % (19.7-50.0)
== END ==
LOC: M LAB REF 17:00
PROVIDERS: ATTEND Nurse Practitioner Family
DX: D50.9 Iron deficiency anemia, unspecified (principal)

== ENCOUNTER → 2025-03-13 | Outpatient (CLI) | payer MEDICARE | LOC: M WUC 11:01 | PROVIDERS: ATTEND Nurse Practitioner Family | DX: R06.89 Other abnormalities of breathing (principal) ==

== ENCOUNTER → 2025-05-17 | Outpatient (REF) | payer MEDICARE | LOC: M LAB REF 17:10 | PROVIDERS: ATTEND Internal Medicine | DX: M48.061 Spinal stenosis, lumbar region without neurogenic claudication (principal) ==

== ENCOUNTER → 2025-06-01 | Outpatient (CLI) | payer MEDICARE | LOC: M PLAIMG 12:40 | PROVIDERS: ATTEND Internal Medicine | DX: J84.10 Pulmonary fibrosis, unspecified (principal) ==